=== PATIENT | female | born 1940 | race Caucasian/White ===

== ENCOUNTER → 2016-06-12 | Outpatient (CLI) | payer MEDICARE, BC ==
[~2016-06-12] MED LIST: AMLO5TAB2 PO; ASPI-586 PO; ATEN50TA PO; CHOL10003 PO; DOCU-143 PO; GLIM4TAB PO; HYDR-3062 PO; HYDR-3812 PO; HYDR-3857 PO; LORA10TA7 PO; LOSA100T28 PO; MELO15TA39 PO; METF500T4 PO; MULT-301 PO; MV-M1TAB38 PO; OMG1KC PO; SERT50TA9 PO; SIMV20TA3 PO; SITA100T12 PO
--- NOTE | 2016-06-12 18:18 | Diagnostic Imaging Report ---
Right breast diagnostic mammogram. The current study was also evaluated with a Computer Aided Detection (CAD) system. INDICATION: Follow-up after excision of intraductal papilloma. FINDINGS: There is increased density in the outer aspect of the right breast compatible with postsurgical changes with no suspicious underlying lesion identified. The pathology results demonstrated no evidence of malignancy with complete excision of intraductal papilloma and sclerosing adenosis. There are scattered benign-appearing calcifications similar to prior exam. IMPRESSION: No mammographic evidence of malignancy. Annual screening mammogram is recommended with the next bilateral exam due in November 2016. ACR BI-RADS Category 2: Benign findings. Result letter will be mailed to the patient. Note: At least 10% of breast cancer is not imaged by mammography. Dictated by: Dictated on workstation # [id number]
== END ==
LOC: RAD 12:22
PROVIDERS: ATTEND Family Medicine
DX: R92.8 Other abnormal and inconclusive findings on diagnostic imaging of breast (principal)

== ENCOUNTER → 2016-11-12 | Outpatient (CLI) | payer MEDICARE, BC ==
--- NOTE | 2016-11-12 13:45 | Diagnostic Imaging Report ---
PROCEDURE: MRI lumbar spine. TECHNIQUE: Multiplanar, multisequence MRI of the lumbar spine was performed without contrast. INDICATION: Back pain. FINDINGS: The alignment of the lumbar spine is normal. The vertebral body heights are well maintained. There is no spondylolysis or spondylolisthesis. No fractures are identified. Conus medullaris is seen at L1 and is normal in appearance. The T12-L1 disc is unremarkable. At L1-L2, there is slight loss of disc height and signal intensity. There is minimal effacement of ventral thecal sac and minimal neuroforaminal encroachment. At L2-L3, there is loss of disc height and signal intensity with broad-based annular bulging, facet disease and thickening of ligamentum flavum. There is mild central spinal stenosis and encroachment upon the lateral recess bilaterally. There is moderate bilateral neuroforaminal encroachment. At L3-L4, there is loss of disc height and signal intensity. There is facet disease with thickening of the ligamentum flavum. There is mild to moderate central spinal stenosis with encroachment upon the lateral recess bilaterally. There is moderate bilateral neuroforaminal encroachment. At L4-L5, there is loss of disc height and signal intensity. There is broad-based annular bulging and marked facet disease with thickening of the ligamentum flavum. There is severe trefoil spinal stenosis with marked encroachment upon the lateral recess bilaterally. There is moderate bilateral neuroforaminal encroachment. At L5-S1, there is some broad-based annular bulging and encroachment upon the lateral recess bilaterally with mild to moderate bilateral neuroforaminal encroachment. The abdominal aorta is nonaneurysmal. Kidneys are unremarkable. There are no other focal soft tissue abnormalities. IMPRESSION: Diffuse lumbar spondylosis and multilevel degenerative disc disease, most severe at L4-L5 as detailed above. Dictated by: Dictated on workstation # [id number]
== END ==
LOC: RAD 11:33
PROVIDERS: ATTEND Family Medicine
DX: M47.816 Spondylosis without myelopathy or radiculopathy, lumbar region (principal); M51.36 Other intervertebral disc degeneration, lumbar region
CPT/HCPCS: 72148

== ENCOUNTER → 2017-02-11 | Outpatient (CLI) | payer MEDICARE, BC ==
--- NOTE | 2017-02-12 18:33 | Diagnostic Imaging Report ---
Bilateral screening mammogram 2D views with tomosynthesis The current study was also evaluated with a Computer Aided Detection (CAD) system. INDICATION: Screening. No current complaints stated on the questionnaire. COMPARISON: 06/12/2016. FINDINGS: The breasts are composed of scattered fibroglandular densities. There are scattered benign-appearing calcifications. There has been a lumpectomy performed in the upper-outer aspect of the right breast with scarring seen similar to 06/12/2016. The pathology results were benign. IMPRESSION: Scarring in the upper-outer aspect of the right breast at a lumpectomy with benign histology results. ACR BI-RADS Category 2: Benign findings. Result letter will be mailed to the patient. Note: At least 10% of breast cancer is not imaged by mammography. Dictated by: Dictated on workstation # [id number]
== END ==
LOC: RAD 09:45
PROVIDERS: ATTEND Family Medicine
DX: Z12.31 Encounter for screening mammogram for malignant neoplasm of breast (principal)
CPT/HCPCS: 77067

== ENCOUNTER → 2017-04-10 | Outpatient (CLI) | payer MEDICARE, BC ==
[~2017-04-10] VITALS: Ht 162.6 cm; Wt 111.2 kg
[~2017-04-10] MED LIST changes: +ACHD5005 PO; -HYDR-3812 PO; +methylPREDNISolone 80 MG/ML (DEPO MEDROL) VIAL ONE
[2017-04-10 13:21] VITALS: BP 166/66
== END ==
LOC: CARD 12:46
PROVIDERS: ATTEND Pain Medicine Interventional Pain Medicine
DX: M54.16 Radiculopathy, lumbar region (principal); M48.061 Spinal stenosis, lumbar region without neurogenic claudication; M51.37 Other intervertebral disc degeneration, lumbosacral region; M43.8X9 Other specified deforming dorsopathies, site unspecified
CPT/HCPCS: 62323

== ENCOUNTER 2017-06-03 13:48 | Outpatient (CLI) | payer MEDICARE, BC ==
[~2017-06-03] VITALS: Ht 162.6 cm; Wt 100.4 kg
[~2017-06-03 13:48] MED LIST changes: -methylPREDNISolone 80 MG/ML (DEPO MEDROL) VIAL ONE
[2017-06-03] MEDS ORDERED: CHOL10007 PO (14:06)
[2017-06-03] MEDS ORDERED: HYDR25TA4 PO (14:06)
[2017-06-03] MEDS ORDERED: MULT-35 PO (14:06)
[2017-06-03] MEDS ORDERED: TRAM50TA2 PO (14:06)
[2017-06-03] MEDS ORDERED: AREDS PO (14:06)
[2017-06-03 14:09] VITALS: BP 145/68
[2017-06-05] MEDS ORDERED: ACHD5005 PO (11:14)
== END 2017-06-03 15:32 | disposition home or self-care (01) ==
LOC: PREOP 13:48
PROVIDERS: ATTEND Surgery
DX: Z01.818 Encounter for other preprocedural examination (principal); Z11.2 Encounter for screening for other bacterial diseases; R22.2 Localized swelling, mass and lump, trunk
CPT/HCPCS: 87081

== ENCOUNTER 2017-07-03 12:34 | Outpatient (CLI) | payer MEDICARE, BC ==
[~2017-07-03] VITALS: Ht 162.6 cm; Wt 99.3 kg
[~2017-07-03 12:34] MED LIST changes: +AREDS PO; +CHOL10007 PO; +HYDR25TA4 PO; -METF500T4 PO; +METF500T5 PO; +MULT-35 PO; +TRAM50TA2 PO
[2017-07-03] MEDS ORDERED: methylPREDNISolone 80 MG/ML (DEPO MEDROL) VIAL ONE (12:53)
[2017-07-03 13:04] VITALS: BP 167/74
[2017-07-03 13:23] VITALS: BP 176/75
--- NOTE | 2017-07-03 22:01 | OPERATIVE REPORT ---
DATE OF SERVICE: 07/03/2017 DIAGNOSIS: Lumbar radiculopathy. PROCEDURE: Fluoroscopic guided interlaminar epidural steroid injection. PROCEDURE IN DETAIL: After obtaining informed consent from the patient, the patient's chart was reviewed. The patient was then brought to the procedure room and placed in the prone position. A timeout was performed. The back was prepped with antiseptic solution and under fluoro guidance, the patient's lumbar spine was identified at the level of L5-S1. The L5-S1 vertebra was identified with fluoro guidance and approximately 2 mL of 1.5% lidocaine solution was used to anesthetize the skin directly down to the pedicle of the L5-S1 and under fluoroscopic guidance, the tract was anesthetized up to the interlaminar space and the ligamentum flavum. This needle was withdrawn. Then, a 20-gauge 3.5 inch Tuohy needle was then directed following the same tract that was anesthetized with the spinal needle. Using loss of resistance, the epidural space was identified and then the syringe was switched for contrast solution which was injected, approximately 1 mL. After secondary confirmation of epidural access, another syringe was placed and 80 mg of Depo-Medrol was injected. The Tuohy needle was then flushed out with approximately 2 mL of the normal saline used from the loss of resistance syringe. Band-Aids were applied to all the procedure sites. The patient tolerated the procedure well and was taken to the recovery room in stable condition. COMPLICATIONS: None. Job ID: [id number] DocumentID: [id number] Dictated Date: 07/03/2017 13:23:58 Store Person Date: 07/03/2017 22:01:09 Dictated By: RAMSES CORCORAN DO
== END 2017-07-03 13:26 | disposition home or self-care (01) ==
LOC: CARD 12:34
PROVIDERS: ATTEND Pain Medicine Interventional Pain Medicine
DX: M54.16 Radiculopathy, lumbar region (principal)
CPT/HCPCS: 62323

== ENCOUNTER 2017-08-28 13:26 | Outpatient (CLI) | payer MEDICARE, BC ==
[~2017-08-28] VITALS: Ht 160 cm; Wt 102.1 kg
[2017-08-28] MEDS ORDERED: methylPREDNISolone 80 MG/ML (DEPO MEDROL) VIAL ONE (13:37)
[2017-08-28 13:58] VITALS: BP 169/63
[2017-08-28 14:20] VITALS: BP 165/67
--- NOTE | 2017-08-28 17:10 | OPERATIVE REPORT ---
DATE OF SERVICE: 08/28/2017 DIAGNOSIS: Lumbar radiculopathy. PROCEDURE: Fluoroscopic guided interlaminar epidural steroid injection. PROCEDURE IN DETAIL: After obtaining informed consent from the patient, the patient's chart was reviewed. The patient was then brought to the procedure room and placed in the prone position. A timeout was performed. The back was prepped with antiseptic solution and under fluoro guidance, the patient's lumbar spine was identified at the level of L5-S1. The L5-S1 vertebrae were identified with fluoro guidance and approximately 2 mL of 1.5% lidocaine solution was used to anesthetize the skin directly down to the pedicle of the L5-S1 and under fluoroscopic guidance, the tract was anesthetized up to the interlaminar space and the ligamentum flavum. This needle was withdrawn. Then, a 20-gauge 3.5 inch Tuohy needle was then directed following the same tract that was anesthetized with the spinal needle. Using loss of resistance, the epidural space was identified and then the syringe was switched for contrast solution which was injected, approximately 1 mL. After secondary confirmation of epidural access, another syringe was placed and 80 mg of Depo-Medrol was injected. The Tuohy needle was then flushed out with approximately 2 mL of the normal saline used from the loss of resistance syringe. Band-Aids were applied to all the procedure sites. The patient tolerated the procedure well and was taken to the recovery room in stable condition. COMPLICATIONS: None. Job ID: [id number] DocumentID: [id number] Dictated Date: 08/28/2017 14:18:48 Supervisor [employer] Date: 08/28/2017 17:10:18 Dictated By: RAMSES CORCORAN DO
== END 2017-08-28 14:27 ==
LOC: CARD 13:26
PROVIDERS: ATTEND Pain Medicine Interventional Pain Medicine
DX: M54.16 Radiculopathy, lumbar region (principal)
CPT/HCPCS: 62323

== ENCOUNTER → 2018-02-12 | Outpatient (CLI) | payer MEDICARE, BC ==
[~2018-02-12] MED LIST changes: -AMLO5TAB2 PO; +AMLO5TAB7 PO; -LOSA100T28 PO; +LOSA100T8 PO; +METF-397 PO; -METF500T5 PO
--- NOTE | 2018-02-12 18:39 | Diagnostic Imaging Report ---
INDICATION: Routine screening. COMPARISON: Comparison is made with prior mammogram from 02/11/2017. TECHNIQUE: 2D and 3D bilateral screening mammography was performed with computer-aided detection (CAD) system. FINDINGS: Scattered fibroglandular densities are identified bilaterally. Postop lumpectomy changes in the upper-outer right breast are again noted. There are scattered calcifications throughout both breasts. There is a focal irregular density identified on the left breast CC view at mid depth just lateral to the nipple line. No definite correlate on the MLO view is seen. Additional views are recommended. Axillae are unremarkable. IMPRESSION: Left breast density. Additional views are recommended for further evaluation. ACR BI-RADS Category 0: Incomplete. (Needs additional imaging evaluation). Result letter will be mailed to the patient. Note: At least 10% of breast cancer is not imaged by mammography. Dictated by: Dictated on workstation # [id number]
== END ==
LOC: RAD 14:38
PROVIDERS: ATTEND Family Medicine
DX: Z12.31 Encounter for screening mammogram for malignant neoplasm of breast (principal); R92.8 Other abnormal and inconclusive findings on diagnostic imaging of breast
CPT/HCPCS: 77067

== ENCOUNTER → 2018-02-25 | Outpatient (CLI) | payer MEDICARE, BC ==
--- NOTE | 2018-02-25 14:42 | Diagnostic Imaging Report ---
EXAMINATION: Unilateral diagnostic left mammogram INDICATION: Abnormal screening mammogram The recent screening mammogram performed on 02/12/2018 noted a focal irregular density at mid depth just lateral to the nipple line on the cc view of the left breast. There is no corresponding abnormality seen on the MLO view. This density does not seem as conspicuous on the compression view or on the lateral roll view but seems to persist on the medial rolled view. This finding cannot be identified on the true lateral view of this exam. I suspect that this density is related to fibroglandular tissue alone. Even so, I would recommend that ultrasound be performed for further study. IMPRESSION: There is no evidence of malignancy. Ultrasound of the left breast would be recommend for further evaluation. ACR BI-RADS Category 0: Incomplete. (Needs additional imaging evaluation). Result letter will be mailed to the patient. Note: At least 10% of breast cancer is not imaged by mammography. Dictated by: Dictated on workstation # [id number]
--- NOTE | 2018-02-25 14:54 | Diagnostic Imaging Report ---
EXAMINATION: Ultrasound of the left breast limited. INDICATION: Abnormal mammogram. FINDINGS: The screening mammogram performed on 02/12/2018 noted a focal radiodensity in the left breast at mid depth just lateral to the nipple line. The diagnostic mammogram performed prior to this study failed to show any evidence for malignancy. On this exam, there is a small 4 x 3 x 4 mm fairly well-circumscribed avascular hypoechoic lesion in the 2 o'clock position roughly 5 cm from the nipple. This may correspond to the density seen on the mammogram. I suspect that this is a small cyst which has been slightly complicated by infection and/or hemorrhage. The possibility that this is a small benign solid lesion should also be considered. I would recommend that a short-term (6 month) followup mammogram and ultrasound exam be performed for further study. There is no other abnormality identified. IMPRESSION: There is a small hypoechoic lesion in the 2 o'clock position of the left breast approximately 5 cm from the nipple. The precise etiology of this finding is uncertain but it has a generally benign appearance. Recommendations as above. ACR BI-RADS Category 3: Probably benign findings. Dictated by: Dictated on workstation # [id number]
== END ==
LOC: RAD 13:25
PROVIDERS: ATTEND Family Medicine
DX: N64.89 Other specified disorders of breast (principal)
CPT/HCPCS: 76642

== ENCOUNTER 2018-04-15 10:00 | Outpatient (CLI) | payer MEDICARE, BC ==
[~2018-04-15] VITALS: Ht 160 cm; Wt 102.1 kg
[~2018-04-15 10:00] MED LIST changes: -AMLO5TAB7 PO; +AMLO5TAB9 PO; +LOSA100T57 PO; -LOSA100T8 PO
[2018-04-15] MEDS ORDERED: BENA20TA7 PO (10:09)
[2018-04-15] MEDS ORDERED: MULT-178 PO (10:09)
== END 2018-04-15 16:22 | disposition home or self-care (01) ==
LOC: PREOP 10:00
PROVIDERS: ATTEND Surgery
DX: Z01.818 Encounter for other preprocedural examination (principal)

== ENCOUNTER 2018-04-21 09:10 | Day surgery (SDC) | payer MEDICARE, BC ==
[~2018-04-21] VITALS: Ht 160 cm; Wt 102.1 kg
[~2018-04-21 09:10] MED LIST changes: +BENA20TA7 PO; +MULT-178 PO
[2018-04-21 09:25] VITALS: BP 156/75
[2018-04-21] MEDS ORDERED: LACTATED RINGERS 1,000 ML IV ONE (09:27)
[2018-04-21] MEDS ORDERED: LACTATED RINGERS 1,000 ML IV PRN (09:30)
[2018-04-21] MEDS ORDERED: PROPOFOL INJECTION 50 ML IV ONE (09:51)
--- NOTE | 2018-04-21 09:55 | Progress Note-Pre Operative ---
Pre-Operative Progress Note H&P Reviewed The H&P was reviewed, patient examined and no changes noted. Date Seen by Provider: Apr 21, 2018 Time Seen by Provider: 09:54 Date H&P Reviewed: Apr 21, 2018 Time H&P Reviewed: 09:54 Pre-Operative Diagnosis: + cologuard test DIXIE AVALOS DO Apr 21, 2018 09:55
[2018-04-21] MEDS ORDERED: GLYCOPYRROLATE 0.2 MG/ML (ROBINUL) 2 ML VIAL ONE (10:08)
--- NOTE | 2018-04-21 10:45 | Progress Note-Post Operative ---
Post-Operative Progess Note Surgeon (s)/Appeals Analyst (s) Surgeon DIXIE AVALOS DO Appeals Analyst: na Pre-Operative Diagnosis + cologuard test Post-Operative Diagnosis ascending colon mass Procedure & Operative Findings Date of Procedure 04/21/18 Procedure Performed/Findings colonoscopy with cold biopsies ascending colon mass and bradly inking 3mL distal to mass Anesthesia Type per photoflash powder mixer Estimated Blood Loss Estimated blood loss (mL): none Specimens/Packing Specimens Removed ascending colon mass DIXIE AVALOS DO Apr 21, 2018 10:45
[2018-04-21 10:50] VITALS: BP 111/57
[2018-04-21 11:20] VITALS: BP 156/73
[2018-04-21 11:35] VITALS: BP 156/73
--- NOTE | 2018-04-21 11:35 | NUR ---
HAS BEEN PASSING FLATUS AND TAKING PO FLUIDS WITHOUT PROBLEM. ALERT, DENIES COMPLAINTS. STATES SHE IS READY FOR DISMISSAL.
--- NOTE | 2018-04-21 15:15 | OPERATIVE REPORT ---
DATE OF SERVICE: 04/21/2018 PREOPERATIVE DIAGNOSIS: Positive Cologuard test. POSTOPERATIVE DIAGNOSIS: Ascending colon mass. PROCEDURE: Colonoscopy with cold biopsies of the ascending colon mass and Jenna inking distal to the mass 3 mL. SURGEON: Dixie Hartley DO ANESTHESIA: Per SECURITIES CONSULTANT. ESTIMATED BLOOD LOSS: None. COMPLICATIONS: None. INDICATIONS: The patient is a 78-year-old female with positive Cologuard test. She understands risks and benefits of procedure and wished to proceed with procedure. Consent was signed on the chart. DESCRIPTION OF PROCEDURE: The patient was taken to the endoscopy suite, placed in left lateral recumbent position. Timeout was performed. Digital rectal exam was performed. There were no palpable polyps, mass or ulcerations. The scope was inserted in the rectum and advanced all the way to the cecum with minimal difficulty. Prep was adequate with irrigation and suction. Scope was then slowly retracted back. There were no polyps, masses or ulcerations in the cecum. The ascending colon, a slightly ulcerated appearing mass was present, which cold biopsies were obtained. Scope was continued slowly retracted just distal to this area where a total of 3 mL of Jenna inking was placed. The scope was then continued slowly retracted back. There were no other polyps, mass or ulcerations within the remainder of the ascending, transverse, descending and sigmoid colon. Once in the rectum, scope was retroflexed noting no other pathology. Scope was returned to its normal position, slowly withdrawn until completely removed. The patient tolerated the procedure well without any complications. She was taken to recovery room in stable condition. RECOMMENDATIONS: The patient will need a followup in two weeks to discuss pathology results. Likely, we will need a right colon resection. We will discuss at the time of followup. Job ID: [id number] DocumentID: [id number] Dictated Date: 04/21/2018 10:49:06 Rn Complex Care Date: 04/21/2018 15:14:24 Dictated By: DIXIE HARTLEY DO
--- NOTE | 2018-04-21 15:49 | Anesthesia-General Post-Op ---
MAC Patient Condition Mental Status/LOC: Same as Preop Cardiovascular: Satisfactory Nausea/Vomiting: Absent Respiratory: Satisfactory Pain: Controlled Complications: Absent Post Op Complications Complications None Follow Up Care/Instructions Patient Instructions None needed. Anesthesiology Discharge Order Discharge Order Patient was seen this morning after the procedure and she was doing well, no complaints, stable vital signs, no apparent adverse anesthesia problems. TAY LANGLEY DO Apr 21, 2018 15:49
== END 2018-04-21 11:35 | disposition home or self-care (01) ==
LOC: ENDO 09:10
PROVIDERS: ATTEND Surgery
DX: C18.2 Malignant neoplasm of ascending colon (principal); E11.9 Type 2 diabetes mellitus without complications; I10 Essential (primary) hypertension; E66.9 Obesity, unspecified; Z68.39 Body mass index [BMI] 39.0-39.9, adult; Z79.82 Long term (current) use of aspirin; Z79.84 Long term (current) use of oral hypoglycemic drugs; Z79.899 Other long term (current) drug therapy
CPT/HCPCS: 82962

== ENCOUNTER → 2018-05-06 | Outpatient (CLI) | payer MEDICARE, BC ==
[2018-05-06 11:04] LABS: BASOPHILS % (AUTO) 0 % (0-10); EOSINOPHILS # (AUTO) 0.1 10^3/uL (0.0-0.3); EOSINOPHILS % (AUTO) 2 % (0-10); HEMATOCRIT 35 % (35-52); HEMOGLOBIN 11.2 G/DL (11.5-16.0); LYMPHOCYTES # (AUTO) 1.6 X 10^3 (1.0-4.0); LYMPHOCYTES % (AUTO) 23 % (12-44); MEAN CORPUSCULAR HEMOGLOBIN 30 PG (25-34); MEAN CORPUSCULAR HGB CONC 32 G/DL (32-36); MEAN CORPUSCULAR VOLUME 95 FL (80-99); MEAN PLATELET VOLUME 9.4 FL (7.4-10.4); MONOCYTES # (AUTO) 0.5 X 10^3 (0.0-1.0); MONOCYTES % (AUTO) 8 % (0-12); NEUTROPHILS # (AUTO) 4.8 X 10^3 (1.8-7.8); NEUTROPHILS % (AUTO) 68 % (42-75); PLATELET COUNT 300 10^3/uL (130-400)
[2018-05-06 11:22] LABS: ALANINE AMINOTRANSFERASE 21 U/L (0-55); ALBUMIN 4.3 GM/DL (3.2-4.5); ALKALINE PHOSPHATASE 47 U/L (40-136); BILIRUBIN,TOTAL 0.4 MG/DL (0.1-1.0); BUN/CREATININE RATIO 23; CALCIUM 10.9 MG/DL (8.5-10.1); CARBON DIOXIDE 25 MMOL/L (21-32); CHLORIDE 105 MMOL/L (98-107); CREATININE SERUM 0.79 MG/DL (0.60-1.30); GFR ESTIMATED > 60; GLUCOSE 136 MG/DL (70-105); POTASSIUM 4.5 MMOL/L (3.6-5.0); SODIUM 137 MMOL/L (135-145)
== END ==
LOC: LAB 10:45
PROVIDERS: ATTEND Surgery
DX: C18.9 Malignant neoplasm of colon, unspecified (principal)
CPT/HCPCS: 36415; 80053; 82378; 85025

== ENCOUNTER → 2018-05-12 | Outpatient (CLI) | payer MEDICARE, BC ==
--- NOTE | 2018-05-13 15:10 | Diagnostic Imaging Report ---
EXAMINATION: PET/CT. INDICATION: Colorectal cancer. EXAMINATION: After intravenous administration of 14.1 mCi of F18-FDG, a series of overlapping emission and transmission PET images was obtained. In the coronal, transaxial and sagittal planes, the area imaged extended from the skull base through the upper thighs. COMPARISON: There are no prior PET/CT exams or cross-sectional imaging studies available for comparison. FINDINGS: By history, patient is diagnosed with colorectal carcinoma. There is no focal area of hypermetabolic activity within the visualized colon to suggest neoplasm. Correlation with the patient's history would be recommended. There is no hypermetabolic activity to indicate the presence of metastatic disease. The liver, specifically, is unremarkable for any hypermetabolic activity. There is no other hypoechoic activity identified. The CT images fail to show any sign of an acute abnormality. The heart is enlarged and there are coronary artery calcifications evident. There are chronic pulmonary changes noted but there is no sign of an acute abnormality. There may be a few small gallstones within the gallbladder. If further study is desired, then ultrasound would be recommended. The bone windows are unremarkable for a fracture or for a destructive lesion. There is no obvious breast mass. IMPRESSION: 1. There is no hypermetabolic activity to correspond to the patient's diagnosis of colorectal carcinoma. Specifically, there is no evidence for metastatic disease. 2. There is no acute abnormality identified. 3. There is a question of cholelithiasis. Recommendations as above. Dictated by: Dictated on workstation # [id number]
== END ==
LOC: RAD 10:35
PROVIDERS: ATTEND Surgery
DX: C18.9 Malignant neoplasm of colon, unspecified (principal); I51.7 Cardiomegaly; I25.10 Atherosclerotic heart disease of native coronary artery without angina pectoris

== ENCOUNTER 2018-05-18 13:37 | Outpatient (CLI) | payer MEDICARE, BC ==
[~2018-05-18] VITALS: Ht 161.9 cm; Wt 101.6 kg
[2018-05-18 13:51] VITALS: BP 158/62
[2018-05-18] MEDS ORDERED: ATOR20TA66 PO (14:02)
[2018-05-19] MEDS ORDERED: OLME40TA12 PO (10:47)
[2018-05-19] MEDS ORDERED: BETA1TAB15 PO (10:47)
[2018-05-19] MEDS ORDERED: TELM80TA8 PO (10:48)
[2018-05-19] MEDS ORDERED: AMLO5TAB9 PO (11:04)
== END 2018-05-18 14:25 | disposition home or self-care (01) ==
LOC: PREOP 13:37
PROVIDERS: ATTEND Surgery
DX: Z01.818 Encounter for other preprocedural examination (principal)
CPT/HCPCS: 87081

== ENCOUNTER 2018-05-21 10:30 | Inpatient (IN) | payer MEDICARE, BC ==
--- NOTE | 2018-05-19 11:06 | NUR ---
CALLED ROSA FOR A LIST OF RECENTLY FILLED MEDICATIONS. SHE IS PAST DUE FOR REFILLS ON A FEW OF THE MEDICATIONS REPORTED AT HER PREOP VISIT. I CALLED AND SPOKE WITH HER OVER THE PHONE REGARDING THEM. [facility]A FILLED: 05-18-18 TELMISARTAN 80MG DAILY (THIS WAS IN PLACE OF THE BENICAR THE PHARMACY COULD NOT GET IN STOCK, PATIENT IS TO TAKE ONE OR THE OTHER BUT NOT BOTH) 04-29-18 HCTZ 25MG DAILY 04-29-18 MOBIC 15MG DAILY 04-22-18 TRAMADOL 50MG BID 04-08-18 BENICAR 40MG DAILY #90 (HAS BEEN SWITCHED TO TELMISARTAN) 04-08-18 LIPITOR 20MG HS #90 03-02-19 METFORMIN 500MG 2 BID #360 DECEMBER GLIMEPIRIDE 4MG DAILY #90 JANUARY ATENOLOL 50MG BID #60 (STATES SHE TAKES 2 AT ONCE, SHE STATES HER BOTTLE IS DATED 03-11-18 #180 AT HOME) AMLODIPINE 5MG DAILY #90 (UNCLEAR IF THIS WAS STOPPED OR IF SHE HAD SOME EXTRA) NEVER PICKED UP- SERTRALINE 50MG DAILY (SURPLUS ON HAND FROM PREVIOUS MAIL ORDER FILLS) SHE STATES SHE PREVIOUSLY USED MAIL ORDER AND SO SHE HAD A LARGE SUPPLY STOCKED UP ON SOME OF HER MEDS AND THAT IS WHY SHE HAS NOT REFILLED A FEW OF THEM RECENTLY, SHE IS USING UP THE SUPPLY SHE HAS ON HAND. SHE WAS UNSURE ABOUT THE AMLODIPINE BUT I CALLED DR. SANDHU'S OFFICE AND THEY STILL HAVE IT AN ACTIVE MEDICATION. STATED IS SHE HAS NOT BEEN TAKING IT AND HER BP IS FINE SHE DOES NOT NEED TO TAKE IT. IT IS UNCLEAR IF SHE HAS BEEN TAKING IT OR NOT DUE TO ITS PAST DUE REFILL DATE AND HER NOT KNOWING FOR SURE IF IT WAS ONE SHE JUST HAD A SURPLUS ON HAND OF. I LEFT IT ON THE MED REC AT THIS TIME. SHE RECEIVES THE JANUVIA 100MG DAILY THROUGH THE MAIL ORDER PHARMACY FOR [employer]. SHE ALSO TAKES THE FOLLOWING OTC: MTV DAILY PRESERVISION WITH AREDS BID VITAMIN D BID ASPIRIN 81MG DAILY
[~2018-05-21] VITALS: Ht 160 cm; Wt 103.6 kg
[~2018-05-21 10:30] MED LIST changes: +ATOR20TA66 PO; +BETA1TAB15 PO; +OLME40TA12 PO; +TELM80TA8 PO
--- OUTSIDE RECORDS SUMMARY | 2018-05-21 10:45 | XMS REPORT | Continuity of Care Document ---
Author Author [facility] Organization [facility] Address Unknown Phone Unavailable Allergies Active Description Code Type Severity Reaction Onset Reported/Identified Relationship to Patient Clinical Status Yes No Known Drug Allergies [id number] Drug Allergy Unknown N/A 04/15/2018 Medications There is no data. Problems Date Dx Coded Attending Type Code Diagnosis Diagnosed By 11/14/2014 GELLENDER DORAYO Ot V76.12 10/10/2015 GELLENDER DO, RAYO Mix Ot M54.9 DORSALGIA, UNSPECIFIED 10/11/2015 GELLENDER DO, RAYO Mix Ot M54.9 DORSALGIA, UNSPECIFIED 10/11/2015 GELLENDER DO, RAYO Mix Ot M54.9 DORSALGIA, UNSPECIFIED 10/31/2015 GELLENDER DO, RAYO Mix Ot M54.9 DORSALGIA, UNSPECIFIED 11/08/2015 GELLENDER DO, RAYO Mix Ot M54.9 DORSALGIA, UNSPECIFIED 11/24/2015 GELLENDER DO, RAYO Mix Ot Z12.31 ENCNTR SCREEN MAMMOGRAM FOR MALIGNANT NE 11/27/2015 GELLENDER DO, RAYO Mix Ot Z12.31 ENCNTR SCREEN MAMMOGRAM FOR MALIGNANT NE 12/07/2015 GELLENDER DO, RAYO Mix Ot R92.2 INCONCLUSIVE MAMMOGRAM 12/07/2015 GELLENDER DO, RAYO Mix Ot R92.8 OTH ABN AND INCONCLUSIVE FINDINGS ON DX 12/14/2015 Ot V76.12 OTH SCREEN MAMMO-MALIGN NEOPLASM OF [place] 12/14/2015 Ot 786.2 COUGH 12/14/2015 GELLENDER DO, RAYO Mix Ot V76.12 OTH SCREEN MAMMO-MALIGN NEOPLASM OF [place] 12/14/2015 GELLENDER DO, RAYO Mix Ot V76.12 OTH SCREEN MAMMO-MALIGN NEOPLASM OF [place] 12/14/2015 GELLENDER DO, RAYO Mix Ot V76.12 OTH SCREEN MAMMO-MALIGN NEOPLASM OF [place] 12/14/2015 GELLENDER DO, RAYO Mix Ot M54.9 DORSALGIA, UNSPECIFIED 12/14/2015 GELLENDER DO, RAYO Mix Ot Z12.31 ENCNTR SCREEN MAMMOGRAM FOR MALIGNANT NE 12/14/2015 GELLENDER DO, RAYO Mix Ot R92.8 OTH ABN AND INCONCLUSIVE FINDINGS ON DX 12/14/2015 GELLENDER DO, RAYO Mix Ot R92.8 OTH ABN AND INCONCLUSIVE FINDINGS ON DX 12/14/2015 GELLENDER DO, RAYO Mix Ot R92.8 OTH ABN AND INCONCLUSIVE FINDINGS ON DX 12/14/2015 GELLENDER DO, RAYO Mix Ot R92.8 OTH ABN AND INCONCLUSIVE FINDINGS ON DX 12/15/2015 GELLENDER DO, RAYO Mix Ot R92.8 OTH ABN AND INCONCLUSIVE FINDINGS ON DX 12/15/2015 GELLENDER DO, RAYO Mix Ot N63 UNSPECIFIED LUMP IN BREAST 12/15/2015 GELLENDER DO, RAYO Mix Ot N63 UNSPECIFIED LUMP IN BREAST 12/18/2015 GELLENDER DO, RAYO Mix Ot N63 UNSPECIFIED LUMP IN BREAST 12/18/2015 GELLENDER DO, RAYO Mix Ot Z12.31 ENCNTR SCREEN MAMMOGRAM FOR MALIGNANT NE 12/26/2015 GELLENDER DO, RAYO Mix Ot N63 UNSPECIFIED LUMP IN BREAST 01/05/2016 AVALOSDIXIE RODRIGUEZ DO Ot N63 UNSPECIFIED LUMP IN BREAST 01/05/2016 DIXIE AVALOS DO Ot Z01.818 ENCOUNTER FOR OTHER PREPROCEDURAL EXAMIN 01/05/2016 DIXIE AVALOS DO Ot Z11.2 ENCOUNTER FOR SCREENING FOR OTHER BACTER 01/08/2016 DIXIE AVALOS DO Ot N63 UNSPECIFIED LUMP IN BREAST 01/08/2016 DIXIE AVALOS DO Ot Z01.818 ENCOUNTER FOR OTHER PREPROCEDURAL EXAMIN 01/08/2016 DIXIE AVALOS DO Ot Z11.2 ENCOUNTER FOR SCREENING FOR OTHER BACTER 01/11/2016 DIXIE AVALOS DO Ot C50.911 MALIGNANT NEOPLASM OF UNSP SITE OF RIGHT 01/11/2016 DIXIE AVALOS DO Ot Z80.3 FAMILY HISTORY OF MALIGNANT NEOPLASM OF 01/15/2016 DIXIE AVALOS DO Ot C50.911 MALIGNANT NEOPLASM OF UNSP SITE OF RIGHT 01/15/2016 DIXIE AVALOS DO Ot Z80.3 FAMILY HISTORY OF MALIGNANT NEOPLASM OF 01/17/2016 AVALOS DO, DIXIE D Ot C50.911 MALIGNANT NEOPLASM OF UNSP SITE OF RIGHT 01/17/2016 AVALOS DO, DIXIE D Ot Z80.3 FAMILY HISTORY OF MALIGNANT NEOPLASM OF 02/01/2016 AVALOS DO, DIXIE D Ot C50.911 MALIGNANT NEOPLASM OF UNSP SITE OF RIGHT 02/01/2016 AVALOS DO, DIXIE D Ot Z80.3 FAMILY HISTORY OF MALIGNANT NEOPLASM OF 02/21/2016 GELLENDER DO, RAYO Dominguez Ot R92.8 OTH ABN AND INCONCLUSIVE FINDINGS ON DX 06/12/2016 Ot V76.12 OTH SCREEN MAMMO-MALIGN NEOPLASM OF RAMON 06/12/2016 Ot 786.2 COUGH 06/12/2016 GELLENDER DO, RAYO Dominguez Ot V76.12 OTH SCREEN MAMMO-MALIGN NEOPLASM OF RAMON 06/12/2016 GELLENDER DO, RAYO Mix Ot V76.12 OTH SCREEN MAMMO-MALIGN NEOPLASM OF [place]ON 06/12/2016 GELLENDER DO, RAYO Mix Ot V76.12 OTH SCREEN MAMMO-MALIGN NEOPLASM OF [place] 06/12/2016 GELLENDER DO, RAYO Mix Ot M54.9 DORSALGIA, UNSPECIFIED 06/12/2016 GELLENDER DO, RAYO Mix Ot Z12.31 ENCNTR SCREEN MAMMOGRAM FOR MALIGNANT NE 06/12/2016 GELLENDER DO, RAYO Mix Ot R92.8 OTH ABN AND INCONCLUSIVE FINDINGS ON DX 06/12/2016 GELLENDER DO, RAYO Mix Ot N63 UNSPECIFIED LUMP IN BREAST 06/12/2016 GELLENDER DO, RAYO Mix Ot R92.8 OTH ABN AND INCONCLUSIVE FINDINGS ON DX 06/12/2016 GELLENDER DO, RAYO Mix Ot R92.8 OTH ABN AND INCONCLUSIVE FINDINGS ON DX 06/12/2016 GELLENDER DO, RAYO Mix Ot R92.8 OTH ABN AND INCONCLUSIVE FINDINGS ON DX 07/05/2016 GELLENDER DO, RAYO Mix Ot R92.8 OTH ABN AND INCONCLUSIVE FINDINGS ON DX 07/10/2016 GELLENDER DO, RAYO Mix Ot R92.8 OTH ABN AND INCONCLUSIVE FINDINGS ON DX 09/25/2016 GELLENDER DO, RAYO Mix Ot N63 UNSPECIFIED LUMP IN BREAST 12/06/2016 GELLENDER DO, RYAO Mix Ot M47.816 SPONDYLOSIS W/O MYELOPATHY OR RADICULOPA 12/06/2016 RAYO SANDHU DO Ot M51.36 OTHER INTERVERTEBRAL DISC DEGENERATION, 12/11/2016 RAYO SANDHU DO Dominguez Ot M47.816 SPONDYLOSIS W/O MYELOPATHY OR RADICULOPA 12/11/2016 RAYO SANDHU DO Ot M51.36 OTHER INTERVERTEBRAL DISC DEGENERATION, 02/17/2017 RAYO SANDHU DO Ot Z12.31 ENCNTR SCREEN MAMMOGRAM FOR MALIGNANT NE 03/04/2017 RAYO SANDHU DO Ot Z12.31 ENCNTR SCREEN MAMMOGRAM FOR MALIGNANT NE 04/11/2017 RAMSES CORCORAN DO Ot M43.8X9 OTHER SPECIFIED DEFORMING DORSOPATHIES, 04/11/2017 RAMSES CORCORAN DO Ot M48.061 SPINAL STENOSIS, LUMBAR REGION WITHOUT N 04/11/2017 RAMSES CORCORAN DO Ot M51.37 OTHER INTERVERTEBRAL DISC DEGENERATION, 04/11/2017 RAMSES CORCORAN DO Ot M54.16 RADICULOPATHY, LUMBAR REGION 05/02/2017 RAMSES CORCORAN DO Ot M43.8X9 OTHER SPECIFIED DEFORMING DORSOPATHIES, 05/02/2017 RMASES CORCORAN DO Ot M48.061 SPINAL STENOSIS, LUMBAR REGION WITHOUT N 05/02/2017 RAMSES CORCORAN DO Ot M51.37 OTHER INTERVERTEBRAL DISC DEGENERATION, 05/02/2017 RAMSES CORCORAN DO Ot M54.16 RADICULOPATHY, LUMBAR REGION 05/07/2017 RAMSES CORCORAN DO Ot M43.8X9 OTHER SPECIFIED DEFORMING DORSOPATHIES, 05/07/2017 RAMSES CORCORAN DO Ot M48.061 SPINAL STENOSIS, LUMBAR REGION WITHOUT N 05/07/2017 RAMSES CORCORAN DO Ot M51.37 OTHER INTERVERTEBRAL DISC DEGENERATION, 05/07/2017 RAMSES CORCORAN DO Ot M54.16 RADICULOPATHY, LUMBAR REGION 06/03/2017 DIXIE AVALOS DO Ot R22.2 LOCALIZED SWELLING, MASS AND LUMP, TRUNK 06/03/2017 DIXIE AVALOS DO Ot Z01.818 ENCOUNTER FOR OTHER PREPROCEDURAL EXAMIN 06/03/2017 DIXIE AVALOS DO Ot Z11.2 ENCOUNTER FOR SCREENING FOR OTHER BACTER 06/04/2017 DIXIE AVALOS DO Ot R22.2 LOCALIZED SWELLING, MASS AND LUMP, TRUNK 06/04/2017 DIXIE AVALOS DO Ot Z01.818 ENCOUNTER FOR OTHER PREPROCEDURAL EXAMIN 06/04/2017 DIXIE AVALOS DO Ot Z11.2 ENCOUNTER FOR SCREENING FOR OTHER BACTER 06/05/2017 DIXIE AVALOS DO Ot D17.1 BENIGN LIPOMATOUS NEOPLASM OF SKIN, SUBC 06/05/2017 DIXIE AVALOS DO Ot E11.9 TYPE 2 DIABETES MELLITUS WITHOUT COMPLIC 06/05/2017 DIXIE AVALOS DO Ot E78.00 PURE HYPERCHOLESTEROLEMIA, UNSPECIFIED 06/05/2017 DIXIE AVALOS DO Ot F32.9 MAJOR DEPRESSIVE DISORDER, SINGLE EPISOD 06/05/2017 DIXIE AVALOS DO Ot I10 ESSENTIAL (PRIMARY) HYPERTENSION 06/05/2017 DIXIE AVALOS DO Ot M19.91 PRIMARY OSTEOARTHRITIS, UNSPECIFIED SITE 06/05/2017 DIXIE AVALOS DO Ot Z79.82 USP (CURRENT) USE OF ASPIRIN 06/05/2017 DIXIE AVALOS DO Ot Z79.84 SUBSTATION SUPERVISOR (CURRENT) USE OF ORAL HYPOGLYC 06/05/2017 DIXIE AVALOS DO Ot Z79.899 OTHER SUBSTATION SUPERVISOR (CURRENT) DRUG THERAPY 06/10/2017 DIXIE AVALOS DO Ot D17.1 BENIGN LIPOMATOUS NEOPLASM OF SKIN, SUBC 06/10/2017 DIXIE AVALOS DO Ot E11.9 TYPE 2 DIABETES MELLITUS WITHOUT COMPLIC 06/10/2017 DIXIE AVALOS DO Ot E78.00 PURE HYPERCHOLESTEROLEMIA, UNSPECIFIED 06/10/2017 DIXIE AVALOS DO Ot F32.9 MAJOR DEPRESSIVE DISORDER, SINGLE EPISOD 06/10/2017 DIXIE AVALOS DO Ot I10 ESSENTIAL (PRIMARY) HYPERTENSION 06/10/2017 DIXIE AVALOS DO Ot M19.91 PRIMARY OSTEOARTHRITIS, UNSPECIFIED SITE 06/10/2017 DIXIE AVALOS DO Ot Z79.82 USP (CURRENT) USE OF ASPIRIN 06/10/2017 DIXIE AVALOS DO Ot Z79.84 USP (CURRENT) USE OF ORAL HYPOGLYC 06/10/2017 DIXIE AVALOS DO Ot Z79.899 OTHER SUBSTATION SUPERVISOR (CURRENT) DRUG THERAPY 07/03/2017 JEWELL TORRES, RAMSES Gonsales Ot M54.16 RADICULOPATHY, LUMBAR REGION 07/04/2017 JEWELL TORRES, RAMSES Gonsales Ot M54.16 RADICULOPATHY, LUMBAR REGION 07/04/2017 JEWELL TORRES, RAMSES Gonsales Ot M54.16 RADICULOPATHY, LUMBAR REGION 08/28/2017 RAMSES CORCORAN DO Ot M54.16 RADICULOPATHY, LUMBAR REGION 08/29/2017 JEWELL TORRES, RAMSES Gonsales Ot M54.16 RADICULOPATHY, LUMBAR REGION 01/30/2018 EDSON TORRES, RAYO Mix Ot Z12.31 ENCNTR SCREEN MAMMOGRAM FOR MALIGNANT NE 02/12/2018 LEDYKRISHNASAUL , RAYO Mix Ot V76.12 OTH SCREEN MAMMO-MALIGN NEOPLASM OF [place] 02/12/2018 [facility] Mix Ot V76.12 OTH SCREEN MAMMO-MALIGN NEOPLASM OF [place] 02/12/2018 [facility], RAYO Mix Ot M54.9 DORSALGIA, UNSPECIFIED 02/12/2018 BARRYSAUL RAYO TORRES Ot Z12.31 ENCNTR SCREEN MAMMOGRAM FOR MALIGNANT NE 02/12/2018 BARRYSAUL , RAYO Mix Ot R92.8 OTH ABN AND INCONCLUSIVE FINDINGS ON DX 02/12/2018 LEDYKRISHNASAUL RAYO TORRES Ot N63 UNSPECIFIED LUMP IN BREAST 02/12/2018 BARRYWARREN, RAYO Mix Ot R92.8 OTH ABN AND INCONCLUSIVE FINDINGS ON DX 02/12/2018 [facility] RAYO Mix Ot M47.816 SPONDYLOSIS W/O MYELOPATHY OR RADICULOPA 02/12/2018 RAYO SANDHU DO Ot M51.36 OTHER INTERVERTEBRAL DISC DEGENERATION, 02/12/2018 RAYO SANDHU DO Ot Z12.31 ENCNTR SCREEN MAMMOGRAM FOR MALIGNANT NE 02/12/2018 RAMSES CORCORAN DO Ot M43.8X9 OTHER SPECIFIED DEFORMING DORSOPATHIES, 02/12/2018 RAMSES CORCORAN DO Ot M48.061 SPINAL STENOSIS, LUMBAR REGION WITHOUT N 02/12/2018 RAMSES CORCORAN DO Ot M51.37 OTHER INTERVERTEBRAL DISC DEGENERATION, 02/12/2018 RAMSES CORCORAN DO Ot M54.16 RADICULOPATHY, LUMBAR REGION 02/12/2018 EDSON DO, RAYO Dominguez Ot Z12.31 ENCNTR SCREEN MAMMOGRAM FOR MALIGNANT NE 02/13/2018 EDSON DO, RAYO Mix Ot R92.8 OTH ABN AND INCONCLUSIVE FINDINGS ON DX 02/13/2018 LEDYLENDER DO, RAYO Mix Ot Z12.31 ENCNTR SCREEN MAMMOGRAM FOR MALIGNANT NE 03/09/2018 EDSON DO, RAYO Mix Ot R92.8 OTH ABN AND INCONCLUSIVE FINDINGS ON DX 03/09/2018 LEDYLENDER DO, RAYO Mix Ot Z12.31 ENCNTR SCREEN MAMMOGRAM FOR MALIGNANT NE 03/19/2018 EDSON DO, RAYO Dominguez Ot N64.89 OTHER SPECIFIED DISORDERS OF BREAST 03/25/2018 EDSON TORRES, RAYO Mix Ot N64.89 OTHER SPECIFIED DISORDERS OF BREAST 04/15/2018 DIXIE AVALOS DO Ot Z01.818 ENCOUNTER FOR OTHER PREPROCEDURAL EXAMIN 04/15/2018 DIXIE AVALOS DO Ot Z01.818 ENCOUNTER FOR OTHER PREPROCEDURAL EXAMIN 04/15/2018 DIXIE AVALOS DO Ot Z01.818 ENCOUNTER FOR OTHER PREPROCEDURAL EXAMIN 04/15/2018 DIXIE AVALOS DO Ot Z01.818 ENCOUNTER FOR OTHER PREPROCEDURAL EXAMIN 04/16/2018 DIXIE AVALOS DO Ot Z01.818 ENCOUNTER FOR OTHER PREPROCEDURAL EXAMIN 04/21/2018 DIXIE AVALOS DO Ot C18.2 MALIGNANT NEOPLASM OF ASCENDING COLON 04/21/2018 DIXIE AVALOS DO Ot E11.9 TYPE 2 DIABETES MELLITUS WITHOUT COMPLIC 04/21/2018 DIXIE AVALOS DO Ot E66.9 OBESITY, UNSPECIFIED 04/21/2018 DIXIE AVALOS DO Ot I10 ESSENTIAL (PRIMARY) HYPERTENSION 04/21/2018 DIXIE AVALOS DO Ot Z68.39 BODY MASS INDEX (BMI) 39.0-39.9, ADULT 04/21/2018 DIXIE AVALOS DO Ot Z79.82 USP (CURRENT) USE OF ASPIRIN 04/21/2018 DIXIE AVALOS DO Ot Z79.84 SUBSTATION SUPERVISOR (CURRENT) USE OF ORAL HYPOGLYC 04/21/2018 DIXIE AVALOS DO D Ot Z79.899 OTHER USP (CURRENT) DRUG THERAPY 04/24/2018 AVALOSDIXIE RODRIGUEZ DO D Ot C18.2 MALIGNANT NEOPLASM OF ASCENDING COLON 04/24/2018 AVALOS DIXIE D Ot E11.9 TYPE 2 DIABETES MELLITUS WITHOUT COMPLIC 04/24/2018 AVALOS DIXIE TORRES D Ot E66.9 OBESITY, UNSPECIFIED 04/24/2018 AVALOS PATRICIA TORRESTT D Ot I10 ESSENTIAL (PRIMARY) HYPERTENSION 04/24/2018 AVALOS DIXIE D Ot Z68.39 BODY MASS INDEX (BMI) 39.0-39.9, ADULT 04/24/2018 AVALOS DO DIXIE D Ot Z79.82 USP (CURRENT) USE OF ASPIRIN 04/24/2018 AVALOS DIXIE D Ot Z79.84 USP (CURRENT) USE OF ORAL HYPOGLYC 04/24/2018 AVALOS DIXIE TORRES D Ot Z79.899 OTHER USP (CURRENT) DRUG THERAPY 05/07/2018 ROBBIE TORRES DIXIE Lillian Ot C18.9 MALIGNANT NEOPLASM OF COLON, UNSPECIFIED 05/07/2018 AVALOS DIXIE TORRES D Ot C18.9 MALIGNANT NEOPLASM OF COLON, UNSPECIFIED 05/13/2018 AVALOS PATRICIA TORRESTT D Ot C18.9 MALIGNANT NEOPLASM OF COLON, UNSPECIFIED 05/13/2018 AVALOS DIXIE Lillian Ot I25.10 ATHSCL HEART DISEASE OF [place] CORONARY 05/13/2018 AVALOS DIXIE Snyder Ot I51.7 CARDIOMEGALY Procedures There is no data. Results Test Result Range Methicillin resistant Staphylococcus aureus (MRSA) screening culture - 14:00 Methicillin resistant Staphylococcus aureus (MRSA) screening culture NEG NRG Capillary blood glucose measurement by glucometer (mass/volume) - 01/11/16 07: 17 Capillary blood glucose measurement by glucometer (mass/volume) 208 mg/dL 70-110 Methicillin resistant Staphylococcus aureus (MRSA) screening culture - 14:20 Methicillin resistant Staphylococcus aureus (MRSA) screening culture NEG NRG Capillary blood glucose measurement by glucometer (mass/volume) - 06/05/17 08: 36 Capillary blood glucose measurement by glucometer (mass/volume) 162 mg/dL 70-110 Capillary blood glucose measurement by glucometer (mass/volume) - 04/21/18 09: 34 Capillary blood glucose measurement by glucometer (mass/volume) 199 mg/dL 70-110 Complete blood count (CBC) with automated white blood cell (WBC) differential - 05/06/18 10:55 Blood leukocytes automated count (number/volume) 7.0 10*3/uL 4.3-11.0 Blood erythrocytes automated count (number/volume) 3.70 10*6/uL 4.35-5.85 Venous blood hemoglobin measurement (mass/volume) 11.2 g/dL 11.5-16.0 Blood hematocrit (volume fraction) 35 % 35-52 Automated erythrocyte mean corpuscular volume 95 [foz_us] 80-99 Automated erythrocyte mean corpuscular hemoglobin (mass per erythrocyte) 30 pg 25-34 Automated erythrocyte mean corpuscular hemoglobin concentration measurement ( mass/volume) 32 g/dL 32-36 Automated erythrocyte distribution width ratio 13.0 % 10.0-14.5 Automated blood platelet count (count/volume) 300 10*3/uL 130-400 Automated blood platelet mean volume measurement 9.4 [foz_us] 7.4-10.4 Automated blood neutrophils/100 leukocytes 68 % 42-75 Automated blood lymphocytes/100 leukocytes 23 % 12-44 Blood monocytes/100 leukocytes 8 % 0-12 Automated blood eosinophils/100 leukocytes 2 % 0-10 Automated blood basophils/100 leukocytes 0 % 0-10 Blood neutrophils automated count (number/volume) 4.8 10*3 1.8-7.8 Blood lymphocytes automated count (number/volume) 1.6 10*3 1.0-4.0 Blood monocytes automated count (number/volume) 0.5 10*3 0.0-1.0 Automated eosinophil count 0.1 10*3/uL 0.0-0.3 Automated blood basophil count (count/volume) 0.0 10*3/uL 0.0-0.1 Comprehensive metabolic panel - 05/06/18 10:55 Serum or plasma sodium measurement (moles/volume) 137 mmol/L 135-145 Serum or plasma potassium measurement (moles/volume) 4.5 mmol/L 3.6-5.0 Serum or plasma chloride measurement (moles/volume) 105 mmol/L 98-107 Carbon dioxide 25 mmol/L 21-32 Serum or plasma anion gap determination (moles/volume) 7 mmol/L 5-14 Serum or plasma urea nitrogen measurement (mass/volume) 18 mg/dL 7-18 Serum or plasma creatinine measurement (mass/volume) 0.79 mg/dL 0.60-1.30 Serum or plasma urea nitrogen/creatinine mass ratio 23 NRG Serum or plasma creatinine measurement with calculation of estimated glomerular filtration rate > NRG Serum or plasma glucose measurement (mass/volume) 136 mg/dL 70-105 Serum or plasma calcium measurement (mass/volume) 10.9 mg/dL 8.5-10.1 Serum or plasma total bilirubin measurement (mass/volume) 0.4 mg/dL 0.1-1.0 Serum or plasma alkaline phosphatase measurement (enzymatic activity/volume) 47 U/L 40-136 Serum or plasma aspartate aminotransferase measurement (enzymatic activity/ volume) 20 U/L 5-34 Serum or plasma alanine aminotransferase measurement (enzymatic activity/volume ) 21 U/L 0-55 Serum or plasma protein measurement (mass/volume) 7.0 g/dL 6.4-8.2 Serum or plasma albumin measurement (mass/volume) 4.3 g/dL 3.2-4.5 CALCIUM CORRECTED 10.7 mg/dL 8.5-10.1 Serum ragweed IgE antibody assay - 05/06/18 10:55 [id number] 1.4 % 0.0-5.0 Methicillin resistant Staphylococcus aureus (MRSA) screening culture - 14:12 Methicillin resistant Staphylococcus aureus (MRSA) screening culture NEG NRG Encounters ACCT No. Visit Date/Time Discharge Status Pt. Type Provider Facility Loc./Unit Complaint [id number] 05/18/2018 13:37:00 05/18/2018 14:25:00 DIS Outpatient DIXIE AVALOS DO [facility] PREOP LAPAROSOCPIC RIGHT COLON RESECTION [id number] 05/15/2018 08:46:00 05/15/2018 23:59:59 CLS Outpatient NEERU SORIANO [facility] ONC [id number] 05/12/2018 10:35:00 05/12/2018 23:59:59 CLS Outpatient DIXIE AVALOS DO [facility] RAD COLON CANCER [id number] 05/06/2018 10:45:00 05/06/2018 23:59:59 CLS Outpatient DIXIE AVALOS DO [facility] LAB COLON CA [id number] 04/21/2018 09:10:00 04/21/2018 11:35:00 DIS Outpatient DIXIE AVALOS DO [facility] ENDO BLOOD IN STOOL [id number] 04/15/2018 10:00:00 04/15/2018 16:22:00 DIS Outpatient DIXIE AVALOS DO [facility] PREOP COLONOSCOPY [id number] 02/25/2018 13:25:00 02/25/2018 23:59:59 CLS Outpatient RAYO SANDHU DO [facility] RAD ABNORMAL MAMMO [id number] 02/12/2018 14:38:00 02/12/2018 23:59:59 CLS Outpatient RAYO SANDHU DO [facility] RAD SCREENING [id number] 08/28/2017 13:26:00 08/28/2017 14:27:00 DIS Outpatient RAMSES CORCORAN DO [facility] CARD LUMBAR RADICULOPATHY [id number] 07/03/2017 12:34:00 07/03/2017 13:26:00 DIS Outpatient RAMSES CORCORAN DO [facility] CARD M54.16 LUMBAR RADICULOPATHY [id number] 06/05/2017 08:28:00 06/05/2017 13:00:00 DIS Outpatient DIXIE AVALOS DO [facility] SDC BACK MASS [id number] 06/03/2017 13:48:00 06/03/2017 15:32:00 DIS Outpatient DIXIE AVALOS DO [facility] PREOP BACK MASS [id number] 04/10/2017 12:46:00 04/10/2017 23:59:59 CLS Outpatient RAMSES CORCORAN DO [facility] CARD LUMBAR RADICULOPATHY [id number] 02/11/2017 09:45:00 02/11/2017 23:59:59 CLS Outpatient RAYO SANDHU DO [facility] RAD SCREENING MAMMOGRAM [id number] 11/12/2016 11:33:00 11/12/2016 23:59:59 CLS Outpatient RAYO SANDHU DO [facility] RAD BACK PAIN GOING DOWN RIGHT LEG [id number] 06/12/2016 12:22:00 06/12/2016 23:59:59 CLS Outpatient RAYO SANDHU DO [facility] RAD ABNORMAL MAMMO [id number] 01/11/2016 07:05:00 01/11/2016 12:50:00 DIS Outpatient DIXIE AVALOS DO [facility] RAD RT BREAST MASS [id number] 01/05/2016 13:23:00 01/05/2016 14:00:00 DIS Outpatient DIXIE AVALOS DO [facility] PREOP RIGHT BREAST LUMP [id number] 12/14/2015 09:32:00 12/14/2015 23:59:59 CLS Outpatient LEDYSMILEY TORRESRAYO [facility] RAD INCONCLUSIVE MAMMO, DENS BREAST [id number] 12/06/2015 14:07:00 12/06/2015 23:59:59 CLS Outpatient RAYO SANDHU DO [facility] RAD ABNORMAL MAMMO [id number] 11/24/2015 09:59:00 11/24/2015 23:59:59 CLS Outpatient RAYO SANDHU DO [facility] RAD SCREENING [id number] 10/09/2015 10:17:00 10/09/2015 23:59:59 CLS Outpatient RAYO SANDHU DO [facility] RAD BACK PAIN [id number] 10/21/2014 14:29:00 10/21/2014 23:59:59 CLS Outpatient RAYO SANDHU DO [facility] RAD SCREENING [id number] 09/15/2013 14:45:00 09/15/2013 23:59:59 CLS Outpatient LEDYSMILEY TORRES RAYO Dominguez [facility] RAD ROUTINE [id number] 07/21/2012 10:16:00 07/21/2012 23:59:59 CLS Outpatient LEDYSMILEY TORRES RAYO Dominguez [facility] RAD SCREENING [id number] 05/21/2018 12:35:00 PEN Preadmit DIXIE AVALOS DO COLON CANCER [id number] 06/21/2011 13:24:00 Document Registration [id number] 06/13/2011 15:27:00 Document Registration [id number] 10/22/2014 05:16:21 ACT Document Registration
[2018-05-21] MEDS: LACTATED RINGERS 1,000 ML IV PRN ×2 (10:55→14:40)
[2018-05-21 11:00] VITALS: BP 139/60
[2018-05-21] MEDS ORDERED: metroNIDAZOLE 500MG/100ML IVPB 100 ML ONE (11:21)
[2018-05-21] MEDS ORDERED: ceFAZolin 2 GM IV Premixed 50 ML ONE (11:21)
--- NOTE | 2018-05-21 11:28 | Progress Note-Pre Operative ---
Pre-Operative Progress Note H&P Reviewed The H&P was reviewed, patient examined and no changes noted. Date Seen by Provider: May 21, 2018 Time Seen by Provider: 11:28 Date H&P Reviewed: May 21, 2018 Time H&P Reviewed: 11:28 Pre-Operative Diagnosis: right colon cancer DIXIE AVALOS DO May 21, 2018 11:28
[2018-05-21] MEDS ORDERED: metroNIDAZOLE 500MG/100ML IVPB 100 ML IV ONE (11:30)
[2018-05-21] MEDS ORDERED: ceFAZolin 2 GM IV Premixed 50 ML IV ONE (11:30)
[2018-05-21] MEDS ORDERED: BUP/EPI 0.5% 1:200,000 (SENSORCAINE) 30 ML VIAL ONE (12:44)
[2018-05-21] MEDS ORDERED: LIDOCAINE 1% INJ 20 ML 20 ML VIAL ONE (12:44)
[2018-05-21] MEDS ORDERED: ROCURONIUM 10 MG/ML 5 ML SYRINGE IV ONE ×2 (13:24→13:33)
[2018-05-21] MEDS ORDERED: LIDOCAINE PF 2% 5 ML (XYLOCAINE) VIAL ONE (13:24)
[2018-05-21] MEDS ORDERED: proPOfol 200 MG/20 ML (DIPRIVAN) VIAL IV ONE (13:24)
[2018-05-21] MEDS ORDERED: ONDANSETRON 4 MG/2 ML (SDV) Z0FRAN ONE (13:24)
[2018-05-21] MEDS ORDERED: fentaNYL INJECTION 100 MCG/2 ML AMP ONE (13:25)
[2018-05-21] MEDS ORDERED: MIDAZOLAM 2 MG/2 ML (VERSED) VIAL ONE (13:25)
[2018-05-21] MEDS ORDERED: SEVOFLURANE (ULTANE) 15 ML INHAL SOLN ONE ×7 (13:31→15:47)
[2018-05-21] MEDS ORDERED: NEOSTIGMINE 1 MG/ML 5 ML SYRINGE ONE (15:26)
[2018-05-21] MEDS ORDERED: GLYCOPYRROLATE 0.2 MG/ML (ROBINUL) 2 ML VIAL ONE (15:26)
[2018-05-21] MEDS ORDERED: ROPIVACAINE 5MG/ML 30ML VIAL ONE (15:58)
[2018-05-21] MEDS ORDERED: ONDANSETRON 4 MG/2 ML (SDV) Z0FRAN IVP PRN ×2 (16:00→16:15)
[2018-05-21] MEDS ORDERED: HYDROmorphone 2 MG/ML VIAL (DILAUDID) IV ONE (16:00)
--- NOTE | 2018-05-21 16:11 | Progress Note-Post Operative ---
Post-Operative Progess Note Surgeon (s)/Quenching Car Operator (s) Surgeon DIXIE AVALOS DO Quenching Car Operator: Dr. Rainey Pre-Operative Diagnosis right colon cancer Post-Operative Diagnosis same Procedure & Operative Findings Date of Procedure 05/21/18 Procedure Performed/Findings Lap hand assisted right colon resection with mobilization hepatic flexure Anesthesia Type gen Estimated Blood Loss Estimated blood loss (mL): min Specimens/Packing Specimens Removed right colon DIXIE AVALOS DO May 21, 2018 16:11
[2018-05-21 16:45] VITALS: BP 121/58
--- NOTE | 2018-05-21 16:45 | NUR ---
TRANSFERRED FROM [facility] PER BED. ALERT AND ORIENTED. RATES PAIN TO ABD. 06/24. BUT REFUSES PAIN MED. AT THIS TIME. IV FLUIDS WITH LR AT 125 CC/HR. IV SITE TO LEFT AC CLEAR. ABD. DRESSING WITH ISLAND DRESSING IN [place] WITH X 2 SMALL SPOTS OF DRAINAGE. X 2 LARGE BAND AIDES TO ABD. D/I. FAMILY MEMBERS AT BEDSIDE. [place] CATH WITH CLEAR YELLOW URINE. TAKING SIPS OF WATER WELL. DENIES NAUSEA.
[2018-05-21 17:01] VITALS: BP 121/58
[2018-05-21] MEDS: LACTATED RINGERS 1,000 ML IV SCH (18:58)
[2018-05-21 20:17] VITALS: BP 176/72
[2018-05-21] MEDS: metroNIDAZOLE 500MG/100ML IVPB 100 ML IV SCH (22:01)
[2018-05-21] MEDS: morphine INJ 10 MG/ML 1ML (SYR OR VIAL) IVP PRN (23:28)
[2018-05-21] MEDS: ceFAZolin 2 GM IV Premixed 50 ML IV SCH (23:28)
[2018-05-22] MEDS: LACTATED RINGERS 1,000 ML IV SCH ×3 (00:15→16:32)
[2018-05-22 00:52] VITALS: BP 145/70
[2018-05-22] MEDS: morphine INJ 10 MG/ML 1ML (SYR OR VIAL) IVP PRN ×3 (02:40→20:34)
--- NOTE | 2018-05-22 02:43 | OPERATIVE REPORT ---
DATE OF SERVICE: 05/21/2018 PREOPERATIVE DIAGNOSIS: Right colon cancer. POSTOPERATIVE DIAGNOSIS: Right colon cancer. PROCEDURE: Laparoscopic hand-assisted right colon resection with mobilization of the hepatic flexure. SURGEON: Dixie Hartley DO. WARM IN: Dr. Rainey, assisted in retraction, dissection and closure. ANESTHESIA: General. ESTIMATED BLOOD LOSS: Minimal. COMPLICATIONS: None. INDICATIONS: The patient is a 78-year-old female with recent diagnosis of right colon cancer. The patient understands risks and benefits of procedure and wished to proceed with procedure. Consent was signed in the chart. DESCRIPTION OF PROCEDURE: The patient was taken to the operating suite. She was prepped and draped in sterile fashion. Surgical pause was performed. Midline incision was made for hand port. A 15 blade scalpel was used to make the incision. Cautery was used to dissect down to the fascia, which was then opened and the abdomen was then entered. The fascia was opened just enough to place hand and a Gelfoam port. The abdomen was then retracted and under direct visualization, a 10 mm trocar was placed in the right lower quadrant. The hand port was then placed in the midline incision and a pneumoperitoneum was achieved. Under direct visualization of the laparoscope, a 10 mm trocar was then placed in the subxiphoid area. The right colon was then mobilized along the white line of Toldt with both spatula and LigaSure. Once the colon was mobilized, it was able to be brought out through the midline incision. The distal ileum was then dissected around and a DEANNA-75 blue stapler was then fired across. The LigaSure was then used to dissect the mesentery. I continued to dissect around. The tumor was palpable in the distal ascending colon and the tattoo was visualized in the hepatic flexure. The hepatic flexure was continued to be mobilized with both blunt and cautery and LigaSure. Distal to the tumor and the tattooing, the proximal transverse colon was then dissected around and the DEANNA-75 blue staple reload was then fired. LigaSure was used to complete the dissection on the mesentery and the specimen was removed, which encompassed the small portion of terminal ileum, the appendix, cecum, ascending and transverse colon. The colon and the ileum were then brought together in a side by side fashion to create a bqaq-ie-lhuw anastomosis. A crotch stitch was placed. The small bowel and colon were then entered, so that the two limbs of the stapler go down one on each side and this was then fired and another reload was used to fire to complete the [id number]-[id number]-[id number] anastomosis. The mesenteric defect was then closed using 3-0 Vicryl. This was then placed back within the abdomen. The fascial defect was then closed using 1-0 looped PDS in a running fashion. The abdomen was then reinsufflated. The abdomen was inspected. No other pathology noted. The abdomen was then irrigated and suctioned. Hemostasis had been achieved. The abdomen was then desufflated, the trocars were removed. The skin was then stapled. The abdomen was then washed and dried and sterile bandages were applied. The patient tolerated the procedure well without any complications. She was taken to recovery room in stable condition. Job ID: [id number] DocumentID: [id number] Dictated Date: 05/21/2018 16:38:28 Shredder Picker Date: 05/22/2018 02:42:44 Dictated By: DIXIE HARTLEY DO
[2018-05-22 04:09] VITALS: BP 122/67
[2018-05-22 04:32] LABS: MEAN PLATELET VOLUME 9.8 FL (7.4-10.4); RED CELL DISTRIBUTION WIDTH 13.4 % (10.0-14.5); WHITE BLOOD COUNT 7.3 10^3/uL (4.3-11.0)
[2018-05-22 04:51] LABS: BUN/CREATININE RATIO 20; CALCIUM 10.2 MG/DL (8.5-10.1); CARBON DIOXIDE 21 MMOL/L (21-32); CHLORIDE 106 MMOL/L (98-107); GFR ESTIMATED > 60; GLUCOSE 223 MG/DL (70-105); POTASSIUM 4.2 MMOL/L (3.6-5.0); SODIUM 137 MMOL/L (135-145)
[2018-05-22] MEDS: ceFAZolin 2 GM IV Premixed 50 ML IV SCH (05:57)
[2018-05-22] MEDS ORDERED: POTASSIUM CL 10MEQ/50ML IVPB 50 ML IV SCH (06:00)
[2018-05-22] MEDS ORDERED: KCL 20 MEQ TAB (K-DUR) PO SCH (06:00)
[2018-05-22] MEDS: metroNIDAZOLE 500MG/100ML IVPB 100 ML IV SCH (06:19)
[2018-05-22] MEDS: MAGNESIUM 1 GM/100 ML IVPB 100 ML IV SCH ×7 (06:19→11:55)
[2018-05-22 08:00] VITALS: BP 119/62
--- NOTE | 2018-05-22 08:07 | Consultation ---
History of Present Illness History of Present Illness Patient Consulted On(consuelo/time) 05/22/18 08:03 Time Seen by Provider: 08:03 History of Present Illness Patient had surgery for colon cancer yesterday. Patient and known diabetic, hypertension, hyperlipidemia. Surgeries previously tonsillectomy, cataract, tubal ligation, lump on the back, and D&C. Family history cancer in family. Denies asthma, heart disease, lung disease. Patient feeling good today. Patient states she's passing a little bit of gas. Patient on fluids. Patient has bradycardia today to hold the atenolol. Magnesium 1 and receiving magnesium sulfate Allergies and Home Medications Allergies Coded Allergies: No Known Drug Allergies (Unverified , 04/15/18) Home Medications Amlodipine Besylate 5 Mg Tablet, 5 MG PO DAILY, (Reported) LAST FILLED #90 NOV. 2017 Aspirin 81 Mg Tablet.dr, 81 MG PO DAILY, (Reported) Atenolol 50 Mg Tablet, 100 MG PO DAILY, (Reported) TAKES 2 (50MG) TABLET Atorvastatin Calcium 20 Mg Tablet, 20 MG PO HS, (Reported) Cholecalciferol (Vitamin D3) 1,000 Unit Capsule, 1,000 UNIT PO BID, (Reported) Glimepiride 4 Mg Tablet, 4 MG PO DAILY, (Reported) Hydrochlorothiazide 25 Mg Tablet, 25 MG PO DAILY, (Reported) Meloxicam 15 Mg Tablet, 15 MG PO DAILY, (Reported) Metformin HCl 500 Mg Tablet, 1,000 MG PO BID, (Reported) TAKES 2 (500MG) TABLETS Multivitamin 1 Each Tablet, 1 TAB PO DAILY, (Reported) Sertraline HCl 50 Mg Tablet, 50 MG PO DAILY, (Reported) Sitagliptin Phosphate 100 Mg Tablet, 100 MG PO DAILY, (Reported) Telmisartan 80 Mg Tablet, 80 MG PO DAILY, (Reported) Tramadol HCl 50 Mg Tablet, 50 MG PO BID, (Reported) Vit A/Vit C/Vit E/Zinc/Copper 1 Each Tablet, 1 TAB PO BID, (Reported) Patient Home Medication List Home Medication List Reviewed: Yes Past Zmfmipe-Qyagjt-Wspvhi Hx Patient Social History Alcohol Use: Denies Use Recreational Drug Use: No Recent Foreign Travel: No Contact w/Someone Who Travel: No Recent Infectious Disease Expo: No Recent Hopitalizations: No Immunizations Up To Date Tetanus Booster (TDap): Unknown PED Vaccines UTD: No Date of Pneumonia Vaccine: Mar 17, 2014 Date of Influenza Vaccine: Dec 22, 2017 Seasonal Allergies Seasonal Allergies: Yes (MILD) Past Medical History Surgeries: Yes (CATARACTS, GRAVEL REMOVED FROM KNEE, D&C, LIPOMA FROM BACK, R BREAST LUMP) Tonsillectomy, Tubal Ligation Respiratory: No Cardiac: Yes High Cholesterol, Hypertension Neurological: No Reproductive Disorders: No 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 Sexually Transmitted Disease: No HIV/AIDS: No Genitourinary: No Bladder Infection Gastrointestinal: Yes (COLON CANCER) Musculoskeletal: Yes Degenerate Disk Disease, Arthritis, Chronic Back Pain Endocrine: Yes Diabetes, Non-Insulin dep HEENT: Yes (GLASSES, DENTURES) Loss of Vision: Bilateral Hearing Impairment: Denies Cancer: Yes Colon Psychosocial: Yes (SITUATIONAL ) Depression Integumentary: No Blood Disorders: No Adverse Reaction/Blood Tranf: No (N/A) Family Medical History Alcoholism 19 FATHER Completed stroke 19 MOTHER Dementia 19 MOTHER Diabetes mellitus 19 MOTHER G8 BROTHER FH: breast cancer G8 SISTER FH: uterine cancer 19 MOTHER Hypertension G8 BROTHER Respiratory disorder 19 FATHER Review of Systems-General Constitutional: no symptoms reported EENTM: no symptoms reported Respiratory: no symptoms reported Cardiovascular: no symptoms reported Gastrointestinal: other (Colon surgery for cancer) Genitourinary: no symptoms reported Physical Exam-General Problems Physical Exam Vital Signs Vital Signs - First Documented 05/21/18 16:45 O2 Flow Rate 2.00 Capillary Refill : General Appearance: WD/WN, no apparent distress Eyes: Bilateral Eye Normal Inspection HEENT: normal ENT inspection Neck: non-tender, full range of motion Respiratory: lungs clear, no respiratory distress, no accessory muscle use Cardiovascular: regular rate, rhythm, bradycardia, other (Will: Atenolol for bradycardia) Gastrointestinal: non tender, soft, other (Patient states she's passing a little gas) Assessment/Plan Assessment/Plan Admission Diagnosis/Plan Colon cancer. Hypertension. Diabetes. Hyperlipidemia. Admission Status: Inpatient Order (span 2 midnights) Reason for Inpatient Admission: Colon cancer surgery RAYO SANDHU DO May 22, 2018 08:07
--- NOTE | 2018-05-22 08:24 | NUR ---
EKG DONE AT BEDSIDE ORDERED.
[2018-05-22] MEDS: ASPIRIN E.C. 81 MG (ECOTRIN) TAB PO SCH (08:48)
[2018-05-22] MEDS: HYDROCHLOROTHIAZIDE 25 MG (HCTZ) TAB PO SCH (08:48)
[2018-05-22] MEDS: SERTRALINE 50 MG (ZOLOFT) TABLET PO SCH (08:48)
[2018-05-22] MEDS: amLODIPine 5 MG (NORVASC) TAB PO SCH (08:48)
[2018-05-22] MEDS: LOSARTAN 100 MG (COZAAR) TABLET PO SCH (08:48)
[2018-05-22] MEDS: PANTOPRAZOLE 40 MG (PROTONIX) VIAL IVP SCH (08:48)
--- NOTE | 2018-05-22 08:54 | Physical Therapy Evaluation ---
PT Evaluation-General Medical Diagnosis Admission Date May 21, 2018 at 10:30 Medical Diagnosis: colon resection Onset Date: May 21, 2018 Therapy Diagnosis Therapy Diagnosis: impaired mobility, strength, endurance Height/Weight Height (Feet): 5 Height (Inches): 3.00 Weight (Pounds): 228 Weight (Ounces): 8.0 Precautions Precautions/Isolations: Fall Prevention Referral Physician: Kaden Hartley DO Reason for Referral: Evaluation/Treatment Medical History Additional Medical History Past Medical History Surgeries: Yes (CATARACTS, GRAVEL REMOVED FROM KNEE, D&C, LIPOMA FROM BACK, R BREAST LUMP) Tonsillectomy, Tubal Ligation Respiratory: No Cardiac: Yes High Cholesterol, Hypertension Neurological: No 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 Sexually Transmitted Disease: No HIV/AIDS: No Genitourinary: No Bladder Infection Gastrointestinal: Yes (COLON CANCER) Musculoskeletal: Yes Degenerate Disk Disease, Arthritis, Chronic Back Pain Endocrine: Yes Diabetes, Non-Insulin dep HEENT: Yes (GLASSES, DENTURES) Loss of Vision: Bilateral Hearing Impairment: Denies Cancer: Yes Colon Psychosocial: Yes (SITUATIONAL ) Depression Reviewed History: Yes Social History Home: Single Level Current Living Status: Alone Entry Into Home: Stairs With Railing PT Steps Into Home: 2 Patient states she has a couple of family members who will be able to help her at home. Prior/Core FIM Prior Level of Function Therapy Code Descriptions/Definitions Functional [place] Measure: 0=Not Assessed/NA 4=Minimal Assistance 1=Total Assistance 5=Supervision or Setup 2=Maximal Assistance 6=Modified [place] 3=Moderate Assistance 7=Complete [place] Therapy Quality Codes: 6 Independent with activity with or without an assistive device 5 Patient requires set up or clean up by helper. Patient completes activity by themselves 4 Supervision or touching assist (CGA). Loco provide cues , steadying assist 3 The helper provides less than half the effort to complete the activity 2 The helper provides more than half the effort to complete the activity 1 Dependent. The helper does all the effort to complete an activity 7 Patient refused to complete or attempt activity 9 The patient did not perform the activity before the current illness or injury 88 Not attempted due to Medical conditions or safety concerns Functional Abilities and Goals: Independent: Patient completed the activities by him/herself, with or without an assistive device, with no assistance from a helper. Needed Some Help: Patient needed partial assistance from another person to complete activities. Dependent: A helper completed the activities for the patient. Unknown: Not Applicable: Bed Mobility: 6 Transfers (B,C,W/C) (FIM): 6 Gait: 6 Stairs: 6 Indoor Mobility (Ambulation): Independent Stairs: Independent Patient states she was using a SPC previously. PT Evaluation-Current Subjective Patient in bed pre tx, agrees to PT, has 3/10 pain in abdomen. Pt/Family Goals Patient in recliner post tx with nurse call, phone, tray, all needs met. Objective Patient Orientation: Person, Place, Situation Attachments: Oxygen, Castellanos Catheter, IV ROM/Strength ROM Lower Extremities WNL Strength Lower Extremities 4/5 gross bilateral lower extremities Neuromuscular (Tone, Coordination, Reflexes) NT Sensory Vision: Wears Glasses Hearing: Functional Sensation Right Lower Extremit: Intact Sensation Left Lower Extremity: Intact Transfers Therapy Code Descriptions/Definitions Functional [place] Measure: 0=Not Assessed/NA 4=Minimal Assistance 1=Total Assistance 5=Supervision or Setup 2=Maximal Assistance 6=Modified [place] 3=Moderate Assistance 7=Complete [place] Transfers (B, C, W/C) (FIM): 4 Scootin Rollin Supine to/from Sit: 4 Sit to/from Stand: 5 bed t/f WC(FIM only if WC use): 5 Min assist for supine to sit. Cues for safety and hand placement. Gait Mode of Locomotion: Walk Anticipated Mode of Locomotion: Walk Gait (FIM): 1 Distance: 20' Gait Level of Assist: 4 Gait Persons Needed: 1 Gait Assistive Device: FWW Comments/Gait Description CGA, slow ambulation but steady Balance Sitting Static: Good Sitting Dynamic: Good Standing Static: Good Standing Dynamic: Good Treatment Seated exercises x15 (AP, LAQ) Assessment/Needs Patient has impaired mobility, strength, endurance post abdominal surgery. Rehab Potential: Fair PT Short Term Goals Short Term Goals Time Frame: May 29, 2018 Transfers (B,C,W/C) (FIM): 5 Gait (FIM): 5 Gait Distance Comment: 150' Gait Level of Assist: 5 Gait Assistive Device: FWW PT Plan Problem List Problem List: Activity Tolerance, Functional Strength, Safety, Balance, Gait, Transfer, Bed Mobility, ROM Treatment/Plan Treatment Plan: Continue Plan of Care Treatment Plan: Bed Mobility, Education, Functional Activity Odalys, Functional Strength, Gait, Safety, Therapeutic Exercise, Transfers Treatment Duration: May 29, 2018 Frequency: 6 times per week Estimated Hrs Per Day: .25 hour per day (15-30') Patient and/or Family Agrees t: Yes Safety Risks/Education Patient Education: Gait Training, Transfer Techniques, Correct Positioning, Safety Issues Teaching Recipient: Patient Teaching Methods: Demonstration, Discussion Response to Teaching: Reinforcement Needed Discharge Recommendations Plan Patient will perform bed mobility and transfer training, balance and endurance training, functional strengthening, stair training, gait training, and education , to improve functional mobility and independence at home. Therapy D/C Recommendations: Home w/ Family Support Time/GCodes Time In: 0820 Time Out: 0845 Total Billed Treatment Time: 25 Total Billed Treatment 1 visit SAMREENM 15' GT 10' FELICIA ISBELL PT May 22, 2018 08:54
[2018-05-22] MEDS ORDERED: TELMISARTAN 40 MG (MICARDIS) TAB PO SCH (09:00)
--- NOTE | 2018-05-22 11:06 | Anesthesia-General Post-Op ---
General Patient Condition Mental Status/LOC: Same as Preop Cardiovascular: Satisfactory Nausea/Vomiting: Absent Respiratory: Satisfactory Pain: Controlled Complications: Absent Post Op Complications Complications None Follow Up Care/Instructions Patient Instructions None needed. Anesthesia/Patient Condition Patient Condition Patient is doing well, no complaints, stable vital signs, no apparent adverse anesthesia problems. No complications reported per nursing. RY LORENZO CRNA May 22, 2018 11:06
[2018-05-22] MEDS: inSUlin ASPART (NovoLOG) 1 UNIT/0.01 ML (CHARGE PER UNIT) SC SCH ×3 (11:55→21:11)
[2018-05-22 12:00] VITALS: BP 131/64
--- NOTE | 2018-05-22 12:27 | Progress Note ---
Subjective Date Seen by a Provider: May 22, 2018 Time Seen by a Provider: 12:24 Subjective/Events-last exam patient pain control. States passing very minimal flatus. Walk around the room. Using cement spirometer some. Denies any nausea vomiting fever sweats chills shortness of breath or chest pain. Magnesium was 1. Objective Exam Vital Signs Date Time Temp Pulse Resp B/P (MAP) Pulse Ox O2 Delivery O2 Flow Rate FiO2 05/22/18 08:00 98.7 50 20 119/62 (81) 98 Nasal Cannula 2.00 05/22/18 04:09 98.5 56 18 122/67 (85) 99 Nasal Cannula 2.00 05/22/18 00:52 99.1 54 18 145/70 (95) 100 Nasal Cannula 2.00 05/21/18 22:00 Nasal Cannula 2.00 05/21/18 21:00 Nasal Cannula 2.00 05/21/18 20:17 98.0 55 16 176/72 (106) 99 05/21/18 17:01 97.0 46 16 121/58 99 Nasal Cannula 2.00 05/21/18 16:45 97.0 46 16 121/58 (79) 97 Nasal Cannula 2.00 I & O 05/22/18 07:00 Intake Total 1650 ml Output Total 505 ml Balance 1145 ml Capillary Refill : General Appearance: No Apparent Distress HEENT: PERRL/EOMI Neck: Non Tender, Supple Respiratory: Chest Non Tender, No Accessory Muscle Use, No Respiratory Distress Cardiovascular: Bradycardia Gastrointestinal: soft, tenderness (incisional no signs of infection), other ( Patient states she's passing a little gas) Extremity: Non Tender, No Calf Tenderness Neurologic/Psychiatric: Alert, Oriented x3, No Motor/Sensory Deficits, Normal Mood/Affect Skin: Normal Color, Warm/Dry Lymphatic: No Adenopathy Results Lab Laboratory Tests 05/22/18 04:15: White Blood Count 7.3, Red Blood Count 3.27L, Hemoglobin 10.0L, Hematocrit 32L, Mean Corpuscular Volume 97, Mean Corpuscular Hemoglobin 31, Mean Corpuscular Hemoglobin Concent 32, Red Cell Distribution Width 13.4, Platelet Count 249, Mean Platelet Volume 9.8, Sodium Level 137, Potassium Level 4.2, Chloride Level 106, Carbon Dioxide Level 21, Anion Gap 10, Blood Urea Nitrogen 18, Creatinine 0.90, Estimat Glomerular Filtration Rate > 60, BUN/Creatinine Ratio 20, Glucose Level 223H, Calcium Level 10.2H, Magnesium Level 1.0*L 05/22/18 11:14: Glucometer 308H Assessment/Plan Assessment/Plan Assessment/Plan Colon cancer status post right hemicolectomy Hypertension. Diabetes. Hyperlipidemia. hypomagnesemia Patient clear liquids at this time. Patient encouraged to ambulate. Patient encouraged to use incentive spirometer. Patient placed on electrolyte replacement protocol Repeat labs in the morning. If hemoglobin remained stable would then start on Lovenox, otherwise patient to continue to use SCDs for DVT prophylaxis DIXIE AVALOS DO May 22, 2018 12:27
--- NOTE | 2018-05-22 13:15 | NUR ---
UNABLE TO VOID. BLADDER SCAN SHOWS 250 CC. PT DOES NOT FEEL NEED AT THIS TIME.
--- NOTE | 2018-05-22 13:19 | NUR ---
UP TO TOILET. UNABLE TO VOID. BLADDER SCAN 250 CC.
[2018-05-22 15:43] VITALS: BP 146/77
--- NOTE | 2018-05-22 16:39 | NUR ---
VOIDED 300CC. BLADDER SCAN 0.
--- NOTE | 2018-05-22 17:00 | NUR ---
ABD DRESSING CHANGED. DANYA INTACT. NO DRAINAGE.
[2018-05-22 19:12] VITALS: BP 155/72
[2018-05-22] MEDS: ATORVASTATIN 20 MG (LIPITOR) TABLET PO SCH (20:22)
[2018-05-23] VITALS: BP 147/63
[2018-05-23] MEDS: MAGNESIUM 1 GM/100 ML IVPB 100 ML IV SCH ×4 (05:49→11:46)
[2018-05-23] MEDS: inSUlin ASPART (NovoLOG) 1 UNIT/0.01 ML (CHARGE PER UNIT) SC SCH ×4 (06:03→20:54)
[2018-05-23] MEDS: MULTIVIT W/MINERALS TAB (THERAGRAN M) PO SCH (06:04)
[2018-05-23 06:16] LABS: HEMOGLOBIN 9.5 G/DL (11.5-16.0); MEAN PLATELET VOLUME 9.7 FL (7.4-10.4); RED CELL DISTRIBUTION WIDTH 13.4 % (10.0-14.5); WHITE BLOOD COUNT 6.4 10^3/uL (4.3-11.0)
[2018-05-23 06:38] LABS: ALANINE AMINOTRANSFERASE 19 U/L (0-55); ALBUMIN 3.5 GM/DL (3.2-4.5); ALKALINE PHOSPHATASE 51 U/L (40-136); BILIRUBIN,TOTAL 0.6 MG/DL (0.1-1.0); BUN/CREATININE RATIO 14; CALCIUM 10.8 MG/DL (8.5-10.1); CARBON DIOXIDE 23 MMOL/L (21-32); CHLORIDE 107 MMOL/L (98-107); CREATININE SERUM 0.76 MG/DL (0.60-1.30); GFR ESTIMATED > 60; GLUCOSE 216 MG/DL (70-105); MAGNESIUM 1.7 MG/DL (1.8-2.4); POTASSIUM 3.7 MMOL/L (3.6-5.0); SODIUM 138 MMOL/L (135-145); TOTAL PROTEIN 5.9 GM/DL (6.4-8.2)
[2018-05-23 07:45] VITALS: BP 161/72
[2018-05-23] MEDS: HYDROCHLOROTHIAZIDE 25 MG (HCTZ) TAB PO SCH (09:00)
[2018-05-23] MEDS: PANTOPRAZOLE 40 MG (PROTONIX) VIAL IVP SCH (09:00)
[2018-05-23] MEDS: LOSARTAN 100 MG (COZAAR) TABLET PO SCH (09:00)
[2018-05-23] MEDS: ASPIRIN E.C. 81 MG (ECOTRIN) TAB PO SCH (09:01)
[2018-05-23] MEDS: amLODIPine 5 MG (NORVASC) TAB PO SCH (09:01)
[2018-05-23] MEDS: SERTRALINE 50 MG (ZOLOFT) TABLET PO SCH (09:01)
--- NOTE | 2018-05-23 09:23 | Progress Note-Standard ---
Standard Progress Note Progress Notes/Assess & Plan Date Seen by a Provider: May 23, 2018 Time Seen by a Provider: 09:22 Progress/Assessment & Plan pain control adequate. Not passed flatus yet. No abdominal distention. Incisions dry. Motivated to use incentive spirometry and ambulate Final Diagnosis right colon mass. REBECA SCHWARTZ MD May 23, 2018 09:23
[2018-05-23] MEDS: ENOXAPARIN 40 MG/0.4 ML (LOVENOX) SYR SC SCH ×2 (10:01→21:37)
--- NOTE | 2018-05-23 10:55 | Physical Therapy Daily Note ---
PT Daily Note-Current Subjective Pt agreeable to PT treatment, discussed using walker for about the first week home, pt and family agreeable. Pt states not in pain right now, just some abdominal soreness Pain Numeric Pain Scale: 0-No Pain Appearance Pt sitting up in chair with family present upon arrival Pt sitting up in recliner with call light, phone and bedside table within reach. Family present Transfers Therapy Code Descriptions/Definitions Functional [place] Measure: 0=Not Assessed/NA 4=Minimal Assistance 1=Total Assistance 5=Supervision or Setup 2=Maximal Assistance 6=Modified [place] 3=Moderate Assistance 7=Complete [place] Therapy Quality Codes: 6 Independent with activity with or without an assistive device 5 Patient requires set up or clean up by helper. Patient completes activity by themselves 4 Supervision or touching assist (CGA). Mather provide cues , steadying assist 3 The helper provides less than half the effort to complete the activity 2 The helper provides more than half the effort to complete the activity 1 Dependent. The helper does all the effort to complete an activity 7 Patient refused to complete or attempt activity 9 The patient did not perform the activity before the current illness or injury 88 Not attempted due to Medical conditions or safety concerns Transfers (B, C, W/C) (FIM): 6 Sit to/from Stand: 6 Pt demo safe and correct technique with all transfers performed Gait Training Distance (FIM): 2=848-07 ft Distance: 110 Gait Level of Assist: 5 Gait Persons Needed: 1 Gait Assistive Device: FWW smooth steady gait, minimal fatigue and soreness, instruction in use of walker now and at home. Instruction to be up walking every hour to assist in decreasing abdominal scar tissue, improving functional mobility and activity tolerance after returning home Treatments gait transfer safety instructional training Assessment Current Status: Good Progress PT Short Term Goals Short Term Goals Time Frame: May 29, 2018 Transfers (B,C,W/C) (FIM): 5 Gait (FIM): 5 Gait Distance Comment: 150' Gait Level of Assist: 5 Gait Assistive Device: FWW PT Plan Treatment/Plan Treatment Plan: Continue Plan of Care Treatment Plan: Bed Mobility, Education, Functional Activity Odalys, Functional Strength, Gait, Safety, Therapeutic Exercise, Transfers Treatment Duration: May 29, 2018 Frequency: 6 times per week Estimated Hrs Per Day: .25 hour per day (15-30') Patient and/or Family Agrees t: Yes Time/GCodes Time In: 850 Time Out: 908 Total Billed Treatment Time: 18 Total Billed Treatment 1 visit, GT x 1 unit MERE RODRIGUEZ BRAILLE TRANSCRIBER May 23, 2018 10:55
--- NOTE | 2018-05-23 13:00 | Progress Note-Hospitalist ---
Subjective HPI/CC On Admission Date Seen by Provider: May 23, 2018 Time Seen by Provider: 11:15 Subjective/Events-last exam Patient doing better No flatus yet Sore abdomen but improved Ambulating well with assistance Checked meds and labs Review of Systems General: Fatigue Gastrointestinal: Abdominal Pain Objective Exam Vital Signs Vital Signs Date Time Temp Pulse Resp B/P (MAP) Pulse Ox O2 Delivery O2 Flow Rate FiO2 05/23/18 07:45 99.8 67 20 161/72 (101) 94 Nasal Cannula 2.00 Capillary Refill : Less Than 3 Seconds General Appearance: No Apparent Distress, WD/WN, Chronically ill HEENT: PERRL/EOMI Neck: Non Tender, Supple Respiratory: Chest Non Tender, No Accessory Muscle Use, No Respiratory Distress Cardiovascular: Regular Rate, Rhythm, No Edema, Bradycardia Gastrointestinal: Soft, Abnormal Bowel Sounds Extremity: Non Tender, No Calf Tenderness Neurologic/Psychiatric: Alert, Oriented x3, No Motor/Sensory Deficits, Normal Mood/Affect Skin: Normal Color, Warm/Dry Lymphatic: No Adenopathy Results/Procedures Lab Laboratory Tests 05/23/18 05:45 Patient resulted labs reviewed. Assessment/Plan Assessment and Plan Assess & Plan/Chief Complaint Assessment: Right colon mass s/p resection post op ileus HTN Abdominal pain Plan: Pain meds Ambulate IVF Diagnosis/Problems Diagnosis/Problems (1) Ileus following gastrointestinal surgery Status: Acute (2) Hypertension Status: Chronic Qualifiers: Hypertension type: essential hypertension Qualified Codes: I10 - Essential (primary) hypertension (3) Depression Status: Chronic Qualifiers: Depression Type: unspecified Qualified Codes: F32.9 - Major depressive disorder, single episode, unspecified (4) Colon cancer Status: Acute Qualifiers: Colon location: unspecified part of colon Qualified Codes: C18.9 - Malignant neoplasm of colon, unspecified (5) Hypercalcemia Status: Acute (6) Diabetes Status: Chronic Qualifiers: Diabetes mellitus type: type 2 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
[2018-05-23] MEDS: ATORVASTATIN 20 MG (LIPITOR) TABLET PO SCH (20:54)
[2018-05-23] MEDS: METOCLOPRAMIDE INJ 10 MG/2 ML (REGLAN) IVP SCH (21:37)
[2018-05-24] VITALS: BP 158/71
[2018-05-24] MEDS: morphine INJ 10 MG/ML 1ML (SYR OR VIAL) IVP PRN (01:49)
--- NOTE | 2018-05-24 03:00 | NUR ---
daylight savings time in effect
[2018-05-24] MEDS: MAGNESIUM 1 GM/100 ML IVPB 100 ML IV SCH ×2 (05:26→08:50)
[2018-05-24] MEDS: METOCLOPRAMIDE INJ 10 MG/2 ML (REGLAN) IVP SCH ×3 (06:05→21:18)
[2018-05-24] MEDS: MULTIVIT W/MINERALS TAB (THERAGRAN M) PO SCH (06:06)
[2018-05-24] MEDS: inSUlin ASPART (NovoLOG) 1 UNIT/0.01 ML (CHARGE PER UNIT) SC SCH ×4 (06:06→21:18)
[2018-05-24 06:22] LABS: HEMOGLOBIN 9.2 G/DL (11.5-16.0); MEAN PLATELET VOLUME 9.7 FL (7.4-10.4); WHITE BLOOD COUNT 5.7 10^3/uL (4.3-11.0)
[2018-05-24 06:43] LABS: BUN/CREATININE RATIO 12; CALCIUM 10.9 MG/DL (8.5-10.1); CARBON DIOXIDE 25 MMOL/L (21-32); CHLORIDE 105 MMOL/L (98-107); CREATININE SERUM 0.78 MG/DL (0.60-1.30); GFR ESTIMATED > 60; GLUCOSE 236 MG/DL (70-105); MAGNESIUM 1.6 MG/DL (1.8-2.4); POTASSIUM 3.6 MMOL/L (3.6-5.0); SODIUM 139 MMOL/L (135-145)
[2018-05-24 07:47] VITALS: BP 137/64
[2018-05-24] MEDS: PANTOPRAZOLE 40 MG (PROTONIX) VIAL IVP SCH (08:48)
[2018-05-24] MEDS: SERTRALINE 50 MG (ZOLOFT) TABLET PO SCH (08:48)
[2018-05-24] MEDS: HYDROCHLOROTHIAZIDE 25 MG (HCTZ) TAB PO SCH (08:48)
[2018-05-24] MEDS: ASPIRIN E.C. 81 MG (ECOTRIN) TAB PO SCH (08:49)
[2018-05-24] MEDS: ENOXAPARIN 40 MG/0.4 ML (LOVENOX) SYR SC SCH ×2 (08:49→21:18)
[2018-05-24] MEDS: LOSARTAN 100 MG (COZAAR) TABLET PO SCH (08:49)
[2018-05-24] MEDS: amLODIPine 5 MG (NORVASC) TAB PO SCH (08:49)
--- NOTE | 2018-05-24 11:14 | Progress Note-Standard ---
Standard Progress Note Progress Notes/Assess & Plan Date Seen by a Provider: May 24, 2018 Time Seen by a Provider: 10:55 Progress/Assessment & Plan pain control adequate. Not passed flatus yet. No abdominal distention. Incisions dry. Motivated to use incentive spirometry and ambulate. afebrile, systolic hypertension. Tolerating diet. Yet to pass flatus. Incisions dry no abdominal distention. Final Diagnosis right colonic mass REBECA SCHWARTZ MD May 24, 2018 11:14
[2018-05-24] MEDS ORDERED: MAGNESIUM 1 GM/100 ML IVPB 100 ML IV ONE (11:45)
--- NOTE | 2018-05-24 12:42 | Progress Note-Hospitalist ---
Subjective HPI/CC On Admission Date Seen by Provider: May 24, 2018 Time Seen by Provider: 11:45 Subjective/Events-last exam Passing flatus Abdominal pain improved Wants to take a shower Checked meds and labs Review of Systems General: Fatigue Objective Exam Vital Signs Vital Signs Date Time Temp Pulse Resp B/P (MAP) Pulse Ox O2 Delivery O2 Flow Rate FiO2 05/24/18 07:47 98.5 74 20 137/64 (88) 95 Nasal Cannula 2.00 Capillary Refill : Less Than 3 Seconds General Appearance: No Apparent Distress, WD/WN, Chronically ill HEENT: PERRL/EOMI Neck: Non Tender, Supple Respiratory: Chest Non Tender, Lungs Clear, Normal Breath Sounds, No Accessory Muscle Use, No Respiratory Distress Cardiovascular: Regular Rate, Rhythm, No Edema Gastrointestinal: Normal Bowel Sounds, Soft, Tenderness Extremity: Non Tender, No Calf Tenderness Neurologic/Psychiatric: Alert, Oriented x3, No Motor/Sensory Deficits, Normal Mood/Affect Skin: Normal Color, Warm/Dry Lymphatic: No Adenopathy Results/Procedures Lab Laboratory Tests 05/24/18 06:05 Patient resulted labs reviewed. Assessment/Plan Assessment and Plan Assess & Plan/Chief Complaint Assessment: Right colon mass s/p resection post op ileus no passing flatus HTN Abdominal pain Plan: Pain meds Ambulate IVF Diagnosis/Problems Diagnosis/Problems (1) Ileus following gastrointestinal surgery Status: Acute (2) Hypertension Status: Chronic Qualifiers: Hypertension type: essential hypertension Qualified Codes: I10 - Essential (primary) hypertension (3) Depression Status: Chronic Qualifiers: Depression Type: unspecified Qualified Codes: F32.9 - Major depressive disorder, single episode, unspecified (4) Colon cancer Status: Acute Qualifiers: Colon location: unspecified part of colon Qualified Codes: C18.9 - Malignant neoplasm of colon, unspecified (5) Hypercalcemia Status: Acute (6) Diabetes Status: Chronic Qualifiers: Diabetes mellitus type: type 2 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
[2018-05-24 15:48] VITALS: BP 109/62
[2018-05-24] MEDS: ATORVASTATIN 20 MG (LIPITOR) TABLET PO SCH (21:18)
[2018-05-25] VITALS: BP 147/67
--- NOTE | 2018-05-25 03:45 | NUR ---
Assumed care of pt at this time; report rec'd from ANNETTE Pang. Pt in bed with HOB in semi-Fowlers; resting with eyes closed; no s/s of distress noted. Will continue to monitor.
[2018-05-25 05:54] LABS: HEMOGLOBIN 8.9 G/DL (11.5-16.0); MEAN PLATELET VOLUME 9.5 FL (7.4-10.4); WHITE BLOOD COUNT 5.1 10^3/uL (4.3-11.0)
[2018-05-25] MEDS: MULTIVIT W/MINERALS TAB (THERAGRAN M) PO SCH (06:19)
[2018-05-25] MEDS: METOCLOPRAMIDE INJ 10 MG/2 ML (REGLAN) IVP SCH ×3 (06:19→22:07)
[2018-05-25 06:25] LABS: BUN/CREATININE RATIO 15; CALCIUM 10.7 MG/DL (8.5-10.1); CARBON DIOXIDE 24 MMOL/L (21-32); CHLORIDE 106 MMOL/L (98-107); CREATININE SERUM 0.81 MG/DL (0.60-1.30); GFR ESTIMATED > 60; GLUCOSE 204 MG/DL (70-105); MAGNESIUM 1.6 MG/DL (1.8-2.4); POTASSIUM 3.7 MMOL/L (3.6-5.0); SODIUM 139 MMOL/L (135-145)
[2018-05-25] MEDS: inSUlin ASPART (NovoLOG) 1 UNIT/0.01 ML (CHARGE PER UNIT) SC SCH ×4 (06:36→22:08)
--- NOTE | 2018-05-25 07:55 | Progress Note (SOAP) ---
Subjective Time Seen by a Provider: 07:52 Subjective/Events-last exam Patient feeling better today. Patient passing gas. Patient has not had a bowel movement. Patient only walk around in room. Magnesium 1.6 today Objective Exam Vital Signs Date Time Temp Pulse Resp B/P (MAP) Pulse Ox O2 Delivery O2 Flow Rate FiO2 05/25/18 00:00 98.6 84 18 147/67 (93) 94 Nasal Cannula 2.00 05/24/18 20:00 Nasal Cannula 2.00 05/24/18 15:48 98.6 80 16 109/62 (78) 97 Nasal Cannula 2.00 05/24/18 08:00 Nasal Cannula 2.00 I & O 05/25/18 07:00 Intake Total 1640 ml Balance 1640 ml Capillary Refill : Less Than 3 Seconds General Appearance: No Apparent Distress, WD/WN HEENT: Normal ENT Inspection Neck: Normal Inspection, Non Tender Respiratory: Chest Non Tender, No Accessory Muscle Use, No Respiratory Distress Cardiovascular: Regular Rate, Rhythm, No Murmur Gastrointestinal: non tender, soft Results Lab Laboratory Tests 05/25/18 05:20 Laboratory Tests 05/24/18 11:27: Glucometer 319H 05/24/18 15:50: Glucometer 241H 05/24/18 20:48: Glucometer 201H 05/25/18 05:20: White Blood Count 5.1, Red Blood Count 2.93L, Hemoglobin 8.9L, Hematocrit 28L, Mean Corpuscular Volume 96, Mean Corpuscular Hemoglobin 30, Mean Corpuscular Hemoglobin Concent 32, Red Cell Distribution Width 13.0, Platelet Count 261, Mean Platelet Volume 9.5, Sodium Level 139, Potassium Level 3.7, Chloride Level 106, Carbon Dioxide Level 24, Anion Gap 9, Blood Urea Nitrogen 12, Creatinine 0.81, Estimat Glomerular Filtration Rate > 60, BUN/Creatinine Ratio 15, Glucose Level 204H, Calcium Level 10.7H, Magnesium Level 1.6L 05/25/18 05:54: Glucometer 232H Assessment/Plan Assessment/Plan Assess & Plan/Chief Complaint . . 05/25/18. Colon cancer. Hypertension. Diabetes. Hyperlipidemia.. Patient passing gas. No bowel movement yet. Hypomagnesemia RAYO SANDHU DO May 25, 2018 07:55
--- NOTE | 2018-05-25 07:59 | NUR ---
Dr. Padron on floor and verbal order received to give one additional bag of Magnesium for a total of two bags today.
[2018-05-25 08:00] VITALS: BP 124/73
[2018-05-25] MEDS ORDERED: MAGNESIUM 1 GM/100 ML IVPB 100 ML IV NR ×2 (08:00)
[2018-05-25] MEDS: LOSARTAN 100 MG (COZAAR) TABLET PO SCH (09:31)
[2018-05-25] MEDS: SERTRALINE 50 MG (ZOLOFT) TABLET PO SCH (09:31)
[2018-05-25] MEDS: HYDROCHLOROTHIAZIDE 25 MG (HCTZ) TAB PO SCH (09:31)
[2018-05-25] MEDS: PANTOPRAZOLE 40 MG (PROTONIX) VIAL IVP SCH (09:31)
[2018-05-25] MEDS: amLODIPine 5 MG (NORVASC) TAB PO SCH (09:31)
[2018-05-25] MEDS: ASPIRIN E.C. 81 MG (ECOTRIN) TAB PO SCH (09:32)
[2018-05-25] MEDS: ENOXAPARIN 40 MG/0.4 ML (LOVENOX) SYR SC SCH ×2 (09:37→22:07)
--- NOTE | 2018-05-25 10:56 | Physical Therapy Daily Note ---
PT Daily Note-Current Subjective Pt reports doctor told her to be up walking more, goal is to try to make it to the nurses station. Pt is very motivated and with good family support Pain Numeric Pain Scale: 0-No Pain Comment: Pt denies pain. Reports soreness beginning in low back with gait distance Appearance upon arrival into pt's room, noted Pt sitting up in chair awake and alert with family present. Pt demo I with toileting and thea care during treatment session. At end of session, pt sitting up in chair, call light, phone and bedside table within reach. All needs met at this time. Mental Status Patient Orientation: Normal For Age Attachments: IV Transfers Therapy Code Descriptions/Definitions Functional [place] Measure: 0=Not Assessed/NA 4=Minimal Assistance 1=Total Assistance 5=Supervision or Setup 2=Maximal Assistance 6=Modified [place] 3=Moderate Assistance 7=Complete [place] Therapy Quality Codes: 6 Independent with activity with or without an assistive device 5 Patient requires set up or clean up by helper. Patient completes activity by themselves 4 Supervision or touching assist (CGA). [place] provide cues , steadying assist 3 The helper provides less than half the effort to complete the activity 2 The helper provides more than half the effort to complete the activity 1 Dependent. The helper does all the effort to complete an activity 7 Patient refused to complete or attempt activity 9 The patient did not perform the activity before the current illness or injury 88 Not attempted due to Medical conditions or safety concerns Transfers (B, C, W/C) (FIM): 6 Sit to/from Stand: 6 Bed to/from Chair: 6 pt demonstrating correct technique and safety with all transfers performed this session Gait Training Gait (FIM): 6 Distance (FIM): 3=150 ft Distance: 238' Gait Level of Assist: 6 Gait Persons Needed: 1 Gait Assistive Device: FWW Pt with slightly fwd flexed posturing at LB/hips, states has had chronic back problems. Good gait speed, No LOB or unsteadiness. Minimal fatigue by end of session Treatments Gait, transfer, safety to improve functional mobility, activity tolerance, strength and balance Assessment Current Status: Good Progress PT Short Term Goals Short Term Goals Time Frame: May 29, 2018 Transfers (B,C,W/C) (FIM): 5 Gait (FIM): 5 Gait Distance Comment: 150' Gait Level of Assist: 5 Gait Assistive Device: FWW PT Plan Treatment/Plan Treatment Plan: Continue Plan of Care Treatment Plan: Bed Mobility, Education, Functional Activity Odalys, Functional Strength, Gait, Safety, Therapeutic Exercise, Transfers Treatment Duration: May 29, 2018 Frequency: 6 times per week Estimated Hrs Per Day: .25 hour per day (15-30') Patient and/or Family Agrees t: Yes Safety Risks/Education Patient Education: Gait Training, Transfer Techniques, Safety Issues Teaching Recipient: Patient, Family Teaching Methods: Discussion Response to Teaching: Verbalize Understanding Time/GCodes Time In: 1034 Time Out: 1050 Total Billed Treatment Time: 16 Total Billed Treatment 1 visit, GT x 1 unit MERE RODRIGUEZ PTA May 25, 2018 10:56
[2018-05-25 16:00] VITALS: BP 161/69
[2018-05-25] MEDS ORDERED: HYDROcodone/APAP 5 MG/325 MG (LORTAB) TAB PO PRN (20:45)
--- NOTE | 2018-05-25 20:45 | Progress Note ---
Subjective Date Seen by a Provider: May 25, 2018 Time Seen by a Provider: 10:07 Subjective/Events-last exam patient passing flatus. Tolerating diet. Pain controlled. Denies any nausea vomiting fever sweats chills shortness of breath or chest pain. Using incentive spirometer. Ambulating. No new complaints at this time. Objective Exam Vital Signs Date Time Temp Pulse Resp B/P (MAP) Pulse Ox O2 Delivery O2 Flow Rate FiO2 05/25/18 16:00 97.1 78 16 161/69 (99) 98 Room Air 05/25/18 08:00 Nasal Cannula 2.00 05/25/18 08:00 98.5 87 18 124/73 (90) 94 Room Air 05/25/18 00:00 98.6 84 18 147/67 (93) 94 Nasal Cannula 2.00 I & O 05/25/18 07:00 Intake Total 1640 ml Balance 1640 ml Capillary Refill : Less Than 3 Seconds General Appearance: No Apparent Distress, WD/WN HEENT: Normal ENT Inspection Neck: Normal Inspection, Non Tender Respiratory: Chest Non Tender, No Accessory Muscle Use, No Respiratory Distress Cardiovascular: Regular Rate, Rhythm, No Murmur Gastrointestinal: soft, tenderness (minimal at incision . Incisions clean dry and intact) Extremity: Non Tender, No Calf Tenderness Neurologic/Psychiatric: Alert, Oriented x3, No Motor/Sensory Deficits, Normal Mood/Affect Skin: Normal Color, Warm/Dry Lymphatic: No Adenopathy Results Lab Laboratory Tests 05/24/18 20:48: Glucometer 201H 05/25/18 05:20: White Blood Count 5.1, Red Blood Count 2.93L, Hemoglobin 8.9L, Hematocrit 28L, Mean Corpuscular Volume 96, Mean Corpuscular Hemoglobin 30, Mean Corpuscular Hemoglobin Concent 32, Red Cell Distribution Width 13.0, Platelet Count 261, Mean Platelet Volume 9.5, Sodium Level 139, Potassium Level 3.7, Chloride Level 106, Carbon Dioxide Level 24, Anion Gap 9, Blood Urea Nitrogen 12, Creatinine 0.81, Estimat Glomerular Filtration Rate > 60, BUN/Creatinine Ratio 15, Glucose Level 204H, Calcium Level 10.7H, Magnesium Level 1.6L 05/25/18 05:54: Glucometer 232H 05/25/18 11:15: Glucometer 303H 3/11/19 15:47: Glucometer 210H 05/25/18 20:32: Glucometer 246H Assessment/Plan Assessment/Plan Assessment/Plan Colon cancer status post right hemicolectomy Hypertension. Diabetes. Hypomagnesemia electrolyte protocol for replacement. Patient passing flatus. Oral pain control. Continue using incentive spirometer. Ambulate as tolerates. Tolerating diet. Continues to improve possibly home tomorrow. DIXIE AVALOS DO May 25, 2018 20:45
[2018-05-25] MEDS: ATORVASTATIN 20 MG (LIPITOR) TABLET PO SCH (22:07)
[2018-05-26] VITALS: BP 151/62
[2018-05-26 03:44] LABS: HEMOGLOBIN 9.6 G/DL (11.5-16.0); MEAN PLATELET VOLUME 9.6 FL (7.4-10.4); RED CELL DISTRIBUTION WIDTH 12.7 % (10.0-14.5); WHITE BLOOD COUNT 6.4 10^3/uL (4.3-11.0)
[2018-05-26 04:09] LABS: BUN/CREATININE RATIO 18; CALCIUM 10.6 MG/DL (8.5-10.1); CARBON DIOXIDE 24 MMOL/L (21-32); CHLORIDE 104 MMOL/L (98-107); CREATININE SERUM 0.78 MG/DL (0.60-1.30); GFR ESTIMATED > 60; GLUCOSE 198 MG/DL (70-105); MAGNESIUM 1.4 MG/DL (1.8-2.4); SODIUM 140 MMOL/L (135-145)
[2018-05-26] MEDS: MULTIVIT W/MINERALS TAB (THERAGRAN M) PO SCH (06:44)
[2018-05-26] MEDS: METOCLOPRAMIDE INJ 10 MG/2 ML (REGLAN) IVP SCH (06:44)
[2018-05-26] MEDS: inSUlin ASPART (NovoLOG) 1 UNIT/0.01 ML (CHARGE PER UNIT) SC SCH ×2 (06:44→11:37)
--- NOTE | 2018-05-26 07:55 | Progress Note (SOAP) ---
Subjective Time Seen by a Provider: 07:53 Subjective/Events-last exam Patient feeling much better today. Patient's temperature 98.6. White blood cells within normal limits. Patient received 3 g of magnesium sulfate. Patient passing gas and had several bowel movements including one this morning Objective Exam Vital Signs Date Time Temp Pulse Resp B/P (MAP) Pulse Ox O2 Delivery O2 Flow Rate FiO2 05/26/18 00:00 100.1 85 18 151/62 (91) 94 Room Air 05/25/18 20:15 Room Air 05/25/18 16:00 97.1 78 16 161/69 (99) 98 Room Air 05/25/18 08:00 Nasal Cannula 2.00 05/25/18 08:00 98.5 87 18 124/73 (90) 94 Room Air I & O 05/26/18 07:00 Intake Total 1390 ml Balance 1390 ml Capillary Refill : Less Than 3 Seconds General Appearance: No Apparent Distress, WD/WN HEENT: Normal ENT Inspection Neck: Full Range of Motion, Normal Inspection Respiratory: No Accessory Muscle Use, No Respiratory Distress Cardiovascular: Regular Rate, Rhythm, No Murmur Gastrointestinal: non tender, soft Results Lab Laboratory Tests 05/26/18 03:35 Laboratory Tests 05/25/18 11:15: Glucometer 303H 05/25/18 15:47: Glucometer 210H 05/25/18 20:32: Glucometer 246H 05/26/18 03:35: White Blood Count 6.4, Red Blood Count 3.16L, Hemoglobin 9.6L, Hematocrit 30L, Mean Corpuscular Volume 94, Mean Corpuscular Hemoglobin 30, Mean Corpuscular Hemoglobin Concent 32, Red Cell Distribution Width 12.7, Platelet Count 285, Mean Platelet Volume 9.6, Sodium Level 140, Potassium Level 4.0, Chloride Level 104, Carbon Dioxide Level 24, Anion Gap 12, Blood Urea Nitrogen 14, Creatinine 0.78, Estimat Glomerular Filtration Rate > 60, BUN/Creatinine Ratio 18, Glucose Level 198H, Calcium Level 10.6H, Magnesium Level 1.4L Assessment/Plan Assessment/Plan Assess & Plan/Chief Complaint . . 05/25/18. Colon cancer. Hypertension. Diabetes. Hyperlipidemia.. Patient passing gas. No bowel movement yet. Hypomagnesemia. . 05/26/18. Colon cancer surgery. Hypertension. Diabetes. Hyperlipidemia. Hypomagnesemia. Patient passing gas and having bowel movements. Patient's temperature this morning 98.6. CBC shows no leukocytosis RAYO SANDHU DO May 26, 2018 07:55
[2018-05-26 08:00] VITALS: BP 163/75
[2018-05-26] MEDS: LOSARTAN 100 MG (COZAAR) TABLET PO SCH (08:22)
[2018-05-26] MEDS: PANTOPRAZOLE 40 MG (PROTONIX) VIAL IVP SCH (08:22)
[2018-05-26] MEDS: POTASSIUM CL 10MEQ/50ML IVPB 50 ML IV SCH ×4 (08:22→10:31)
[2018-05-26] MEDS: SERTRALINE 50 MG (ZOLOFT) TABLET PO SCH (08:22)
[2018-05-26] MEDS: ASPIRIN E.C. 81 MG (ECOTRIN) TAB PO SCH (08:22)
[2018-05-26] MEDS: amLODIPine 5 MG (NORVASC) TAB PO SCH (08:23)
[2018-05-26] MEDS: HYDROCHLOROTHIAZIDE 25 MG (HCTZ) TAB PO SCH (08:27)
[2018-05-26] MEDS ORDERED: NS IV 500 ML 500 ML IV SCH (08:30)
[2018-05-26] MEDS: MAGNESIUM 1 GM/100 ML IVPB 100 ML IV SCH ×4 (08:42→09:48)
[2018-05-26] MEDS: ENOXAPARIN 40 MG/0.4 ML (LOVENOX) SYR SC SCH (09:20)
--- NOTE | 2018-05-26 09:50 | Physical Therapy Daily Note ---
PT Daily Note-Current Subjective Pt sitting in recliner upon arrival. Pt agrees to PT. Pt reports DC today, this could not be confirmed by Nurse. Pain Location: No Pain Reported Mental Status Patient Orientation: Person, Place, Time, Situation Attachments: IV Transfers Therapy Code Descriptions/Definitions Functional [place] Measure: 0=Not Assessed/NA 4=Minimal Assistance 1=Total Assistance 5=Supervision or Setup 2=Maximal Assistance 6=Modified [place] 3=Moderate Assistance 7=Complete [place] Therapy Quality Codes: 6 Independent with activity with or without an assistive device 5 Patient requires set up or clean up by helper. Patient completes activity by themselves 4 Supervision or touching assist (CGA). [place] provide cues , steadying assist 3 The helper provides less than half the effort to complete the activity 2 The helper provides more than half the effort to complete the activity 1 Dependent. The helper does all the effort to complete an activity 7 Patient refused to complete or attempt activity 9 The patient did not perform the activity before the current illness or injury 88 Not attempted due to Medical conditions or safety concerns Transfers (B, C, W/C) (FIM): 6 Scootin Rollin Supine to/from Sit: 6 Sit to/from Stand: 6 Bed to/from Chair: 6 Weight Bearing Right Lower Extremity: Right Full Weight Bearing Left Lower Extremity: Left Full Weight Bearing Gait Training Distance (FIM): 3=150 ft Distance: 250' Gait Level of Assist: 6 Gait Persons Needed: 1 Gait Assistive Device: FWW Pt walks well with FWW. Pt reports having SPC at home but BAR PORTER instructs pt to use FWW at this time due to leaning too much on FWW to use SPC. Treatments Pt uses restroom before ambulation in hallway. Pt ambulates in hallway using FWW at Mod I before returning to rest in recliner. Nurse is present and pt has all needs met. Assessment Current Status: Good Progress Pt is feeling better today and wants to eat regular diet. Pt is ambulating and transferring well. Pt looks forward to DC. PT Short Term Goals Short Term Goals Time Frame: May 29, 2018 Transfers (B,C,W/C) (FIM): 5 Gait (FIM): 5 Gait Distance Comment: 150' Gait Level of Assist: 5 Gait Assistive Device: FWW PT Plan Problem List Problem List: Activity Tolerance Treatment/Plan Treatment Plan: Continue Plan of Care Treatment Plan: Bed Mobility, Education, Functional Activity Odalys, Functional Strength, Gait, Safety, Therapeutic Exercise, Transfers Treatment Duration: May 29, 2018 Frequency: 6 times per week Estimated Hrs Per Day: .25 hour per day (15-30') Patient and/or Family Agrees t: Yes Safety Risks/Education Patient Education: Gait Training, Transfer Techniques, Correct Positioning, Safety Issues Teaching Recipient: Patient Teaching Methods: Discussion Response to Teaching: Verbalize Understanding Time/GCodes Time In: 900 Time Out: 923 Total Billed Treatment Time: 23 Total Billed Treatment 1, FA (8m) & GT (15m) G Codes Necessary: TASHA Queen BAR PORTER May 26, 2018 09:50
[2018-05-26] MEDS ORDERED: ACHD5005 PO (11:19)
[2018-05-26] MEDS ORDERED: DOCU-143 PO (11:19)
--- NOTE | 2018-05-26 11:21 | Discharge Inst-Simple/Standard ---
Discharge Inst-Standard Discharge Medications New, Converted or Re-Newed RX: RX on Chart Patient Instructions/Follow Up Plan of Care/Instructions/FU: 2 weeks Odilia Odom within 2 weeks. Activity as Tolerated: No Discharge Diet: Regular Diet Other Inst to Patient Follow up Appt: Make appointment for 2 week Odilia. within [address] Odom Instructions: No lifting greater than 10 pounds. No strenuous activity. May shower in 24 hours, no tub bath or soaking. Use incentive spirometer at home as directed. No Smoking Skin/Wound Care: keep incisions clean and dry. Symptoms to Report: Appetite Changes, Extremity Discoloration, Numbness/Tingling, Swelling Increased , Bleeding Excessive, Eyesight Changes, Pain Increased, Urine Color Change, Constipation(Persistent), Fever over 101 degree F, Pain/Pressure in chest, Urinating Difficulty, Cough Up/Vomit Blood, Heart Beat Irreg/Pounding, Pain/ Pressure in jaw, Vaginal Bleeding Increase, Cramps in feet or legs, Lightheadedness, Pain/Pressure in shoulder, Diarrhea(Persistent), Memory Changes Suddenly, Questions/Concerns, Weight gain consecutive days, Dizziness/ Fainting, Nausea/Vomiting, Shortness of Breath, Weight gain over 2 pounds If questions or concerns contact your physician Or seek help at emergency department. DIXIE AVALOS DO May 26, 2018 11:21
[2018-05-26 12:30] VITALS: BP 158/75
--- NOTE | 2018-05-26 12:30 | NUR ---
EDI TUCKER demonstrates understanding of discharge instructions and accurately returns instructions upon questioning. Copy of Post-Discharge Instructions given to PT. EDI TUCKER is able to manage continuing needs after discharge. Patients belongings returned to PT. Patient discharged from [facility] on 05/26/18 at 1230. EDI TUCKER left floor via W/C, accompanied by STAFF AND DAUGHTER PER AUTO.
== END 2018-05-26 12:35 | disposition home or self-care (01) | DRG 330 ==
LOC: 4TH 10:30 → SURG 10:31 → 4TH 16:45
PROVIDERS: ADMIT Surgery; ATTEND Surgery
PROC: 0DTF0ZZ Resection of Right Large Intestine, Open Approach (ICD-10-PCS; principal; 2018-05-21 13:48)
DX: C18.2 Malignant neoplasm of ascending colon (principal); E11.9 Type 2 diabetes mellitus without complications; Z68.41 Body mass index [BMI] 40.0-44.9, adult; E66.9 Obesity, unspecified; I10 Essential (primary) hypertension; E78.5 Hyperlipidemia, unspecified; M19.91 Primary osteoarthritis, unspecified site; M54.9 Dorsalgia, unspecified; F32.9 Major depressive disorder, single episode, unspecified; Z79.84 Long term (current) use of oral hypoglycemic drugs; R00.1 Bradycardia, unspecified; E83.42 Hypomagnesemia; E83.52 Hypercalcemia
CPT/HCPCS: 36415; 80048; 80053; 82962; 83735; 85027; 86850; 86900; 86901; 88309; 88341; 88342; 93005; 94664

== ENCOUNTER 2018-06-08 14:47 | Outpatient (RCR) | payer MEDICARE, BC ==
[2018-06-08 15:13] LABS: BASOPHILS % (AUTO) 0 % (0-10); EOSINOPHILS # (AUTO) 0.1 10^3/uL (0.0-0.3); EOSINOPHILS % (AUTO) 2 % (0-10); HEMATOCRIT 32 % (35-52); HEMOGLOBIN 9.9 G/DL (11.5-16.0); LYMPHOCYTES # (AUTO) 1.7 X 10^3 (1.0-4.0); LYMPHOCYTES % (AUTO) 19 % (12-44); MEAN CORPUSCULAR HEMOGLOBIN 30 PG (25-34); MEAN CORPUSCULAR HGB CONC 31 G/DL (32-36); MEAN CORPUSCULAR VOLUME 96 FL (80-99); MEAN PLATELET VOLUME 9.5 FL (7.4-10.4); MONOCYTES # (AUTO) 0.7 X 10^3 (0.0-1.0); MONOCYTES % (AUTO) 8 % (0-12); NEUTROPHILS # (AUTO) 6.3 X 10^3 (1.8-7.8); NEUTROPHILS % (AUTO) 72 % (42-75); PLATELET COUNT 472 10^3/uL (130-400); RED CELL DISTRIBUTION WIDTH 12.8 % (10.0-14.5); WHITE BLOOD COUNT 8.8 10^3/uL (4.3-11.0)
[2018-06-08 15:36] LABS: BILIRUBIN,TOTAL 0.3 MG/DL (0.1-1.0); CREATININE SERUM 1.04 MG/DL (0.60-1.30); POTASSIUM 4.6 MMOL/L (3.6-5.0); TOTAL PROTEIN 7.1 GM/DL (6.4-8.2)
== END 2018-08-13 | disposition home or self-care (01) ==
LOC: ONC 14:47
PROVIDERS: ATTEND Internal Medicine Hematology & Oncology
DX: C18.2 Malignant neoplasm of ascending colon (principal); E11.9 Type 2 diabetes mellitus without complications; I10 Essential (primary) hypertension; E78.00 Pure hypercholesterolemia, unspecified; M17.0 Bilateral primary osteoarthritis of knee; M47.9 Spondylosis, unspecified; Z80.0 Family history of malignant neoplasm of digestive organs; Z79.84 Long term (current) use of oral hypoglycemic drugs; Z79.899 Other long term (current) drug therapy
CPT/HCPCS: 36415; 80053; 85025; 99213; 99214

== ENCOUNTER → 2018-09-24 | Outpatient (CLI) | payer MEDICARE, BC ==
--- NOTE | 2018-09-24 20:02 | Diagnostic Imaging Report ---
INDICATION: Left breast density. Patient presents for six-month followup. COMPARISON: Correlation is made with prior exam from 02/12/2018. EXAMINATION: Unilateral left 2D and 3D diagnostic mammography was performed with CAD. The current study was also evaluated with a Computer Aided Detection (CAD) system. FINDINGS: Scattered fibroglandular densities in the left breast are again noted. The density noted just lateral to the nipple line at mid depth on left CC view is again noted but appears slightly less prominent on today's study. No corresponding density on the MLO view is seen. No new mass or malignant appearing microcalcifications are seen. Left axilla is unremarkable. IMPRESSION: Stable left mammogram. Density noted in the left breast is similar to perhaps slightly less prominent on today's study. Left breast ultrasound will be performed today as well. ACR BI-RADS Category 0: Incomplete. (Needs additional imaging evaluation). Result letter will be mailed to the patient. Note: At least 10% of breast cancer is not imaged by mammography. Dictated by: Dictated on workstation # [id number]
--- NOTE | 2018-09-24 20:21 | Diagnostic Imaging Report ---
INDICATION: Six-month followup left breast nodule. COMPARISON: Correlation is made with prior left breast ultrasound from 02/25/2018. EXAMINATION: Sonographic interrogation of the 2 o'clock location in the left breast, 5 cm from the nipple, was performed. FINDINGS: Hypoechoic mass at this location measures slightly larger on today's study, measuring 7 mm x 4 mm x 6 mm compared with 4 mm x 3 mm x 4 mm on prior. Borders are somewhat indistinct. No internal vascularity is seen. IMPRESSION: Slight increase in size of the hypoechoic mass at the 2 o'clock location of the left breast, 5 cm from the nipple, when compared with examination from 02/25/2018. Borders are somewhat indistinct. Features are somewhat concerning. Tissue sampling is recommended. This would be amenable to ultrasound-guided biopsy. ACR BI-RADS Category 4: Suspicious abnormality. Result letter will be mailed to the patient. Note: At least 10% of breast cancer is not imaged by mammography. Dictated by: Dictated on workstation # [id number]
== END ==
LOC: RAD 13:07
PROVIDERS: ATTEND Family Medicine
DX: N63.21 Unspecified lump in the left breast, upper outer quadrant (principal)
CPT/HCPCS: 76642

== ENCOUNTER → 2018-10-12 | Outpatient (CLI) | payer MEDICARE, BC ==
[~2018-10-12] VITALS: Ht 160 cm; Wt 98.0 kg
[~2018-10-12] MED LIST changes: +FERR-84 PO; +LIDOCAINE 1% INJ 20 ML 20 ML VIAL INJ ONE; +MAGN400C PO; +OLME20TA21 PO
--- NOTE | 2018-10-12 13:43 | Diagnostic Imaging Report ---
INDICATION: Left breast mass. Patient presents for an ultrasound guided biopsy. TECHNIQUE: The patient was brought to the procedure room and placed on the table in the supine position. Ultrasound imaging over the left breast was performed to evaluate for an appropriate entry site. The skin of the left breast was then prepped and draped in the usual sterile fashion. A small amount of 1% lidocaine was utilized for local anesthesia. Multiple passes were made through the small hypoechoic mass at the 2 o'clock location of the left breast utilizing a 14-gauge Achieve needle. A total of three cores were obtained. Next, a marker clip was deployed adjacent to the lesion. Hemostasis was obtained using manual compression. The patient tolerated the procedure well and obtained a post procedure mammogram. The patient left the Department in satisfactory condition. IMPRESSION: Ultrasound guided core biopsy of the subcentimeter hypoechoic mass at the 2 o'clock location of the left breast, as described. The Pathology results are currently pending. Dictated by: Dictated on workstation # [id number]
--- NOTE | 2018-10-12 16:02 | Diagnostic Imaging Report ---
INDICATION: Left breast nodule, status post ultrasound biopsy. TECHNIQUE: 2D CC and MLO views of the left breast were obtained status post left breast biopsy with clip placement. FINDINGS: A marker clip is identified just lateral to the nipple of the left breast on the CC view at mid depth. This is superiorly located on the ML view. Scattered benign calcifications are noted. IMPRESSION: Clip placement in the upper outer left breast, status post biopsy. Dictated by: Dictated on workstation # [id number]
== END ==
LOC: RAD 11:46
PROVIDERS: ATTEND Family Medicine
DX: N63.21 Unspecified lump in the left breast, upper outer quadrant (principal); Z98.890 Other specified postprocedural states
CPT/HCPCS: 19083; 88305; 88341; 88342; 88360

== ENCOUNTER 2018-10-29 08:43 | Outpatient (CLI) | payer MEDICARE, BC ==
[~2018-10-29] VITALS: Ht 160 cm; Wt 100.3 kg
[~2018-10-29 08:43] MED LIST changes: -FERR-84 PO; -LIDOCAINE 1% INJ 20 ML 20 ML VIAL INJ ONE; -MAGN400C PO; -OLME20TA21 PO
[2018-10-29] MEDS ORDERED: OLME20TA21 PO (08:59)
[2018-10-29] MEDS ORDERED: MAGN400C PO (08:59)
[2018-10-29] MEDS ORDERED: FERR-84 PO (08:59)
[2018-10-29] MEDS ORDERED: OMG1KC PO (08:59)
[2018-10-29 09:03] VITALS: BP 153/59
== END 2018-10-29 11:02 | disposition home or self-care (01) ==
LOC: PREOP 08:43
PROVIDERS: ATTEND Surgery
DX: Z01.818 Encounter for other preprocedural examination (principal)
CPT/HCPCS: 87081

== ENCOUNTER 2018-11-05 06:27 | Day surgery (SDC) | payer MEDICARE, BC ==
[2018-11-05] VITALS (11 sets, daily range): BP systolic 111–179; BP diastolic 53–86
[~2018-11-05] VITALS: Ht 160 cm; Wt 100.3 kg
[~2018-11-05 06:27] MED LIST changes: +FERR-84 PO; +MAGN400C PO; +OLME20TA21 PO
[2018-11-05] MEDS ORDERED: LACTATED RINGERS 1,000 ML IV PRN (07:02)
[2018-11-05] MEDS ORDERED: ceFAZolin 2 GM/50 ML NS 50 ML IV ONE (07:15)
--- NOTE | 2018-11-05 07:46 | Progress Note-Pre Operative ---
Pre-Operative Progress Note H&P Reviewed The H&P was reviewed, patient examined and no changes noted. Date Seen by Provider: Nov 05, 2018 Time Seen by Provider: 07:46 Date H&P Reviewed: Nov 05, 2018 Time H&P Reviewed: 07:46 Pre-Operative Diagnosis: lobular carcinoma left breast DIXIE AVALOS DO Nov 05, 2018 07:46
[2018-11-05] MEDS ORDERED: LIDOCAINE 1% INJ 20 ML 20 ML VIAL INJ ONE (08:15)
[2018-11-05] MEDS ORDERED: MIDAZOLAM 2 MG/2 ML (VERSED) VIAL ONE (11:14)
[2018-11-05] MEDS ORDERED: LIDOCAINE PF 2% 5 ML (XYLOCAINE) VIAL ONE (11:14)
[2018-11-05] MEDS ORDERED: proPOfol 200 MG/20 ML (DIPRIVAN) VIAL IV ONE (11:14)
[2018-11-05] MEDS ORDERED: ONDANSETRON 4 MG/2 ML (SDV) Z0FRAN ONE (11:14)
[2018-11-05] MEDS ORDERED: DEXAMETHASONE 10 MG/ML (DECADRON) 1 ML VIAL ONE (11:14)
[2018-11-05] MEDS ORDERED: fentaNYL INJECTION 100 MCG/2 ML AMP ONE (11:14)
[2018-11-05] MEDS ORDERED: BUP/EPI 0.5% 1:200,000 (MARCAINE) 10ML VIAL IJ ONE (11:35)
[2018-11-05] MEDS ORDERED: ceFAZolin 2 GM/50 ML NS 50 ML ONE (11:42)
[2018-11-05] MEDS ORDERED: 0.9% SODIUM CHLORIDE PF INJ 20 ML VIAL ONE (11:46)
[2018-11-05] MEDS ORDERED: SEVOFLURANE (ULTANE) 15 ML INHAL SOLN ONE ×5 (12:04→13:31)
[2018-11-05] MEDS ORDERED: GLYCOPYRROLATE 0.2 MG/ML (ROBINUL) 2 ML VIAL ONE ×2 (12:45→12:54)
[2018-11-05] MEDS ORDERED: ATROPINE INJ 0.4 MG/ML SDV ONE (12:45)
--- NOTE | 2018-11-05 13:42 | Progress Note-Post Operative ---
Post-Operative Progess Note Surgeon (s)/Hypnotherapist (s) Surgeon DIXIE AVALOS DO Hypnotherapist: na Pre-Operative Diagnosis lobular carcinoma left breast Post-Operative Diagnosis same Procedure & Operative Findings Date of Procedure 11/05/18 Procedure Performed/Findings left breast wire localized lumpectomy c sentinel node biopsy Anesthesia Type gen Estimated Blood Loss Estimated blood loss (mL): minimal Specimens/Packing Specimens Removed left sentinel node, wire localized lumpectomy, inferior margin DIXIE AVALOS DO Nov 05, 2018 13:42
[2018-11-05] MEDS ORDERED: DOCU-143 PO (13:44)
[2018-11-05] MEDS ORDERED: ACHD5005 PO (13:44)
--- NOTE | 2018-11-05 13:47 | Discharge Inst-Simple/Standard ---
Discharge Inst-Standard Discharge Medications New, Converted or Re-Newed RX: RX on Chart Patient Instructions/Follow Up Plan of Care/Instructions/FU: 2 weeks Odilia Keep compressive support (sports bra on). Activity as Tolerated: No Discharge Diet: Regular Diet Other Inst to Patient Follow up Appt: Make appointment for 2 week. Instructions: No lifting greater than 10 pounds. Wear compressive supportive bra (sports bra) until seen in the clinic. No strenuous activity. May shower in 24 hours, no tub bath or soaking. Use incentive spirometer at home as directed. No Smoking Skin/Wound Care: May remove bandages in 48 hours. You have special glue over incisions it will fall off on their own. Symptoms to Report: Appetite Changes, Extremity Discoloration, Numbness/Tingling, Swelling Increase d, Bleeding Excessive, Eyesight Changes, Pain Increased, Urine Color Change, Constipation(Persistent), Fever over 101 degree F, Pain/Pressure in chest, Urinating Difficulty, Cough Up/Vomit Blood, Heart Beat Irreg/Pounding, Pain/Pressure in jaw, Vaginal Bleeding Increase, Cramps in feet or legs, Lightheadedness, Pain/Pressure in shoulder, Diarrhea(Persistent), Memory Changes Suddenly, Questions/Concerns, Weight gain consecutive days, Dizziness/Fainting, Nausea/Vomiting, Shortness of Breath, Weight gain over 2 pounds If questions or concerns contact your physician Or seek help at emergency department. DIXIE AVALOS DO Nov 05, 2018 13:47
[2018-11-05] MEDS ORDERED: MEPERIDINE (DEMEROL) INJ 50 MG/ML IVP ONE (14:00)
[2018-11-05] MEDS ORDERED: ONDANSETRON 4 MG/2 ML (SDV) Z0FRAN IVP PRN (14:00)
[2018-11-05] MEDS ORDERED: morphine INJ 10 MG/ML 1ML (SYR OR VIAL) IVP ONE (14:00)
[2018-11-05] MEDS ORDERED: HYDROmorphone 2 MG/ML VIAL (DILAUDID) IV ONE (14:00)
--- NOTE | 2018-11-05 14:11 | Diagnostic Imaging Report ---
Indication: Left breast carcinoma, status post lumpectomy. 2 specimen radiographs were obtained. The hookwire and the marker clip are located within the specimen. Nodular density adjacent to the thicker portion of the hookwire is also seen. Nodular density is located at coordinates H. 3-1/2 on the film timed 1:36 PM. The marker is located at coordinates H3 on film labeled 1:36 PM. On film at 1:30 PM markers located at K4. Impression: Hookwire and marker clip are located within the specimen. Dictated by: Dictated on workstation # [id number]
[2018-11-05] MEDS ORDERED: INDIGO CARMINE 8 MG/ML 5 ML AMP INJ ONE (14:30)
--- NOTE | 2018-11-05 14:30 | Anesthesia-General Post-Op ---
General Patient Condition Mental Status/LOC: Same as Preop Cardiovascular: Satisfactory Nausea/Vomiting: Absent Respiratory: Satisfactory Pain: Controlled Complications: Absent Post Op Complications Complications None Follow Up Care/Instructions Patient Instructions None needed. Anesthesia/Patient Condition Patient Condition Patient is doing well, no complaints, stable vital signs, no apparent adverse anesthesia problems. No complications reported per nursing. GRICEL SÁNCHEZ CRNA Nov 05, 2018 14:30
[2018-11-05] MEDS ORDERED: HYDROcodone/APAP 5 MG/325 MG (LORTAB) TAB ONE (14:33)
[2018-11-05] MEDS ORDERED: HYDROcodone/APAP 5 MG/325 MG (LORTAB) TAB PO ONE (14:45)
--- NOTE | 2018-11-05 22:29 | Diagnostic Imaging Report ---
INDICATION: Breast carcinoma. Patient was administered a total of 1.0 mCi of filtered technetium 99m sulfur colloid administered in 4 separate aliquots in the left breast in a periareolar distribution. Imaging was then performed for 135 minutes. [place] node in left axilla was marked on the patient's skin. IMPRESSION: Left breast lymphoscintigraphy for identification of sentinel nodes, as described. Dictated by: Dictated on workstation # [id number]
--- NOTE | 2018-11-05 22:48 | Diagnostic Imaging Report ---
INDICATION: Left breast carcinoma. Patient presents for wire localization using ultrasound guidance. Patient was brought to the procedure room, placed on the table in the supine position. Ultrasound imaging of the left breast was performed to evaluate appropriate entry site. Localization needle was advanced into the left breast from a lateral approach, placed with its tip just beyond the hypoechoic mass at the 2 o'clock location of the left breast approximately 3 cm from the nipple. Hookwire was then deployed and needle was removed. Wire was affixed to the patient's skin. Patient tolerated the procedure well and was sent for postprocedure mammogram in satisfactory condition. IMPRESSION: Successful ultrasound guided hookwire placement adjacent to the subcentimeter hypoechoic mass 2 o'clock location of the left breast previously biopsied. Dictated by: Dictated on workstation # [id number]
--- NOTE | 2018-11-05 23:28 | Diagnostic Imaging Report ---
INDICATION: Left breast carcinoma, status post hookwire placement. Correlation is made with prior exam from 10/12/2018 and 09/24/2018. Unilateral left 2-D CC and mL mammography was performed. Hookwire enters from the upper-outer left breast. Hookwire is seen adjacent to the marker clip in the mid left breast. Hook portion of the wire does pass beyond the marker clip left breast. IMPRESSION: Satisfactory hookwire localization of left breast mass marker clip, as described. Dictated by: Dictated on workstation # [id number]
--- NOTE | 2018-11-11 06:31 | OPERATIVE REPORT ---
DATE OF SERVICE: 11/05/2018 PREOPERATIVE DIAGNOSIS: Lobular carcinoma, left breast. POSTOPERATIVE DIAGNOSIS: Lobular carcinoma, left breast. PROCEDURE: Left breast wire localized lumpectomy with sentinel node biopsy. SURGEON: Dixie Hartley DO ANESTHESIA: General. ESTIMATED BLOOD LOSS: Minimal. COMPLICATIONS: None. INDICATIONS: The patient is a 78-year-old female with lobular carcinoma of the left breast proven by biopsy. She understands risks and benefits of procedure and wished to proceed with procedure. Consent was signed in the chart. DESCRIPTION OF PROCEDURE: The patient was taken to the operating suite. She was prepped and draped in sterile fashion. Surgical pause was performed. A navigator was used to isolate the sentinel node. Over the most intense area, an incision was made with 15 blade scalpel. Subcutaneous tissues were then divided with both cautery and blunt dissection and previous to incision Indigo carmine was injected for lymphatic pickup. The sentinel node was able to be isolated with the count being 543. This was able to be dissected around and cautery was used to remove and achieve hemostasis. A 10-second count on the node was 6549. No other nodes were able to be palpable or located using the navigator. The 10-second background count was 18. The wound was then irrigated with copious amounts of irrigation and the subcutaneous tissues were reapproximated using 3-0 Vicryl. Skin was then closed using 4-0 Monocryl in a subcuticular fashion. The wire was placed by radiology prior to going to the operating room. An elliptical incision was made over the lateral aspect of the breast with taking a piece of skin and removing the previous cut and biopsy. The wire was incorporated into the incisional sites. Cautery was used to dissect circumferentially around the wire until the wire was completely removed. There was an aspect of the specimen that worked in and therefore a further excision was performed correlating with the specimen for further margin. The wound was irrigated with copious amounts of irrigation and suction. Hemostasis was achieved. The subcutaneous tissues were reapproximated using 3-0 Vicryl. The skin was then closed using 4-0 Monocryl in subcuticular fashion. Radiology demonstrated a wire and a biopsy clip were removed in the specimen and the breast and the axilla were irrigated with copious amounts of irrigation and Skin Affix was placed over the incisions. The patient tolerated procedure well without any complications. She was taken to recovery room in stable condition. Job ID: [id number] DocumentID: [id number] Dictated Date: 11/06/2018 17:12:58 Rotary Pump Operator Date: 11/06/2018 20:53:38 Dictated By: DIXIE HARTLEY DO
== END 2018-11-05 15:55 | disposition home or self-care (01) ==
LOC: RAD 06:27
PROVIDERS: ATTEND Surgery
DX: C50.412 Malignant neoplasm of upper-outer quadrant of left female breast (principal); E11.9 Type 2 diabetes mellitus without complications; I10 Essential (primary) hypertension; E78.00 Pure hypercholesterolemia, unspecified; E78.5 Hyperlipidemia, unspecified; F32.9 Major depressive disorder, single episode, unspecified; E66.01 Morbid (severe) obesity due to excess calories; Z85.038 Personal history of other malignant neoplasm of large intestine; Z79.84 Long term (current) use of oral hypoglycemic drugs; Z79.899 Other long term (current) drug therapy; Z79.82 Long term (current) use of aspirin; Z80.3 Family history of malignant neoplasm of breast; Z80.1 Family history of malignant neoplasm of trachea, bronchus and lung; Z68.39 Body mass index [BMI] 39.0-39.9, adult
CPT/HCPCS: 19285; 76098; 78195; 82962

== ENCOUNTER 2018-12-03 12:59 | Outpatient (RCR) | payer MEDICARE, BC ==
[2018-09-10 11:20] LABS: BASOPHILS % (AUTO) 0 % (0-10); EOSINOPHILS # (AUTO) 0.1 10^3/uL (0.0-0.3); EOSINOPHILS % (AUTO) 2 % (0-10); HEMATOCRIT 35 % (35-52); HEMOGLOBIN 11.5 G/DL (11.5-16.0); LYMPHOCYTES # (AUTO) 1.5 X 10^3 (1.0-4.0); LYMPHOCYTES % (AUTO) 25 % (12-44); MEAN CORPUSCULAR HEMOGLOBIN 30 PG (25-34); MEAN CORPUSCULAR HGB CONC 33 G/DL (32-36); MEAN CORPUSCULAR VOLUME 92 FL (80-99); MEAN PLATELET VOLUME 9.3 FL (7.4-10.4); MONOCYTES # (AUTO) 0.4 X 10^3 (0.0-1.0); MONOCYTES % (AUTO) 7 % (0-12); NEUTROPHILS # (AUTO) 4.1 X 10^3 (1.8-7.8); NEUTROPHILS % (AUTO) 67 % (42-75); PLATELET COUNT 265 10^3/uL (130-400); RED CELL DISTRIBUTION WIDTH 14.9 % (10.0-14.5); WHITE BLOOD COUNT 6.2 10^3/uL (4.3-11.0)
[2018-09-10 11:46] LABS: ALBUMIN 4.4 GM/DL (3.2-4.5); BILIRUBIN,TOTAL 0.4 MG/DL (0.1-1.0); CALCIUM 11.2 MG/DL (8.5-10.1); CREATININE SERUM 1.07 MG/DL (0.60-1.30); POTASSIUM 4.4 MMOL/L (3.6-5.0); TOTAL PROTEIN 7.4 GM/DL (6.4-8.2)
[2018-11-19 11:03] LABS: BASOPHILS % (AUTO) 0 % (0-10); EOSINOPHILS # (AUTO) 0.1 10^3/uL (0.0-0.3); EOSINOPHILS % (AUTO) 2 % (0-10); HEMATOCRIT 36 % (35-52); HEMOGLOBIN 11.7 G/DL (11.5-16.0); LYMPHOCYTES # (AUTO) 1.7 X 10^3 (1.0-4.0); LYMPHOCYTES % (AUTO) 23 % (12-44); MEAN CORPUSCULAR HEMOGLOBIN 31 PG (25-34); MEAN CORPUSCULAR HGB CONC 33 G/DL (32-36); MEAN CORPUSCULAR VOLUME 95 FL (80-99); MEAN PLATELET VOLUME 9.4 FL (7.4-10.4); MONOCYTES # (AUTO) 0.6 X 10^3 (0.0-1.0); MONOCYTES % (AUTO) 8 % (0-12); NEUTROPHILS # (AUTO) 4.9 X 10^3 (1.8-7.8); NEUTROPHILS % (AUTO) 68 % (42-75); PLATELET COUNT 304 10^3/uL (130-400); RED CELL DISTRIBUTION WIDTH 13.3 % (10.0-14.5); WHITE BLOOD COUNT 7.3 10^3/uL (4.3-11.0)
[2018-11-19 11:32] LABS: ALBUMIN 4.2 GM/DL (3.2-4.5); BILIRUBIN,TOTAL 0.4 MG/DL (0.1-1.0); CALCIUM 11.3 MG/DL (8.5-10.1); CREATININE SERUM 1.01 MG/DL (0.60-1.30); POTASSIUM 4.8 MMOL/L (3.6-5.0); TOTAL PROTEIN 7.1 GM/DL (6.4-8.2)
== END 2018-12-09 | disposition home or self-care (01) ==
LOC: ONC 12:59
PROVIDERS: ATTEND Internal Medicine Hematology & Oncology
DX: Z51.0 Encounter for antineoplastic radiation therapy (principal); C18.2 Malignant neoplasm of ascending colon; E11.9 Type 2 diabetes mellitus without complications; I10 Essential (primary) hypertension; E78.00 Pure hypercholesterolemia, unspecified; M17.0 Bilateral primary osteoarthritis of knee; M47.9 Spondylosis, unspecified; Z80.0 Family history of malignant neoplasm of digestive organs; Z79.84 Long term (current) use of oral hypoglycemic drugs; Z79.899 Other long term (current) drug therapy
CPT/HCPCS: 36415; 77290; 77295; 77300; 77334; 80053; 82378; 85025; 99204; 99213

== ENCOUNTER → 2019-02-02 | Outpatient (CLI) | payer MEDICARE, BC ==
--- NOTE | 2019-02-02 17:37 | Diagnostic Imaging Report ---
INDICATION: 79-year-old female, postmenopausal. Screening for osteoporosis. History of breast cancer. COMPARISON: FINDINGS: AP Spine L1-L4: [BMD (g/cm2): 1.269] [T-Score: 0.6] [Z-Score: 1.2] [BMD Previous: NA] [BMD % Change: NA] LT Hip Neck: [BMD (g/cm2): 1.196] [T-Score: 1.1] [Z-Score: 2.4] LT Hip Total: [BMD (g/cm2):1.240] [T-Score:1.8] [Z-Score: 2.9] [BMD Previous: NA] [BMD % Change: NA] RT Hip Neck: [BMD (g/cm2):1.071] [T-Score:0.2] [Z-Score:1.5] RT Hip Total: [BMD (g/cm2):1.092] [T-score:.7] [Z-Score:1.7] [BMD Previous:NA] [BMD % Change:NA] *Indicates significant change from prior examination based on 95% confidence level. World Health Organization criteria for BMD interpretation classify patients as Normal (T-score at or above -1.0), Osteopenic (T-score between -1.0 and -2.5) or Osteoporotic (T-score at or below -2.5). LIMITATIONS AND MODIFICATION: None. FRACTURE RISK (FRAX SCORE): The ten year probability of (%): Major Osteoporotic Fracture: [NA] Hip Fracture: [NA] IMPRESSION: 1. Normal bone mineral density. 2. Baseline examination. 3. See below National Osteoporosis Foundation guidelines on when to potentially initiate pharmacologic therapy. Based on the National Osteoporosis Foundation Guidelines, pharmacologic treatment should be initiated in any of the following, unless clinical conditions suggest otherwise: * Any patient with prior fragility fracture of the hip or vertebrae. A spine fracture indicates 5X risk for subsequent spine fracture and 2X risk for subsequent hip fracture. * Osteoporosis (T-score <-2.5). * Postmenopausal women and men age 50 and older with low bone mass/osteopenia (T-score between -1.0 and -2.5) by DXA and 10-year major osteoporotic fracture greater than 20% or a 10-year probability of hip fracture greater than 3%. These fracture risks are supplied above in the FRAX score, if applicable. * Clinician judgement and/or patient preferences may indicate treatment for people with 10-year fracture probabilities above or below these levels. Dictated by: Dictated on workstation # [id number]
== END ==
LOC: RAD 10:04
PROVIDERS: ATTEND Nurse Practitioner Adult Health
DX: Z13.820 Encounter for screening for osteoporosis (principal); C50.412 Malignant neoplasm of upper-outer quadrant of left female breast; C18.2 Malignant neoplasm of ascending colon; N18.3 Chronic kidney disease, stage 3 (moderate); Z78.0 Asymptomatic menopausal state
CPT/HCPCS: 77080

== ENCOUNTER 2019-02-04 09:41 | Outpatient (RCR) | payer MEDICARE, BC ==
[2019-01-07 13:14] LABS: BASOPHILS % (AUTO) 0 % (0-10); EOSINOPHILS # (AUTO) 0.1 10^3/uL (0.0-0.3); EOSINOPHILS % (AUTO) 2 % (0-10); HEMATOCRIT 34 % (35-52); LYMPHOCYTES # (AUTO) 0.8 X 10^3 (1.0-4.0); LYMPHOCYTES % (AUTO) 14 % (12-44); MEAN CORPUSCULAR HEMOGLOBIN 31 PG (25-34); MEAN CORPUSCULAR HGB CONC 33 G/DL (32-36); MEAN CORPUSCULAR VOLUME 95 FL (80-99); MONOCYTES # (AUTO) 0.7 X 10^3 (0.0-1.0); MONOCYTES % (AUTO) 12 % (0-12); NEUTROPHILS # (AUTO) 3.9 X 10^3 (1.8-7.8); NEUTROPHILS % (AUTO) 71 % (42-75); PLATELET COUNT 312 10^3/uL (130-400); RED CELL DISTRIBUTION WIDTH 13.3 % (10.0-14.5); WHITE BLOOD COUNT 5.5 10^3/uL (4.3-11.0)
[2019-01-07 13:32] LABS: ALBUMIN 4.1 GM/DL (3.2-4.5); BILIRUBIN,TOTAL 0.4 MG/DL (0.1-1.0); CALCIUM 10.4 MG/DL (8.5-10.1); CREATININE SERUM 1.07 MG/DL (0.60-1.30); POTASSIUM 4.5 MMOL/L (3.6-5.0); TOTAL PROTEIN 7.3 GM/DL (6.4-8.2)
[2019-02-04 09:57] LABS: BASOPHILS % (AUTO) 0 % (0-10); EOSINOPHILS # (AUTO) 0.2 10^3/uL (0.0-0.3); EOSINOPHILS % (AUTO) 3 % (0-10); HEMATOCRIT 37 % (35-52); HEMOGLOBIN 12.2 G/DL (11.5-16.0); LYMPHOCYTES # (AUTO) 0.8 X 10^3 (1.0-4.0); LYMPHOCYTES % (AUTO) 12 % (12-44); MEAN CORPUSCULAR HEMOGLOBIN 32 PG (25-34); MEAN CORPUSCULAR HGB CONC 33 G/DL (32-36); MEAN CORPUSCULAR VOLUME 97 FL (80-99); MEAN PLATELET VOLUME 9.4 FL (7.4-10.4); MONOCYTES # (AUTO) 0.7 X 10^3 (0.0-1.0); MONOCYTES % (AUTO) 10 % (0-12); NEUTROPHILS # (AUTO) 4.9 X 10^3 (1.8-7.8); NEUTROPHILS % (AUTO) 75 % (42-75); PLATELET COUNT 306 10^3/uL (130-400); RED CELL DISTRIBUTION WIDTH 13.5 % (10.0-14.5); WHITE BLOOD COUNT 6.5 10^3/uL (4.3-11.0)
[2019-02-04 10:13] LABS: ALANINE AMINOTRANSFERASE 25 U/L (0-55); ALBUMIN 4.6 GM/DL (3.2-4.5); ALKALINE PHOSPHATASE 67 U/L (40-136); BILIRUBIN,TOTAL 0.4 MG/DL (0.1-1.0); BUN/CREATININE RATIO 22; CALCIUM 10.9 MG/DL (8.5-10.1); CARBON DIOXIDE 24 MMOL/L (21-32); CHLORIDE 102 MMOL/L (98-107); CREATININE SERUM 1.04 MG/DL (0.60-1.30); GFR ESTIMATED 51; GLUCOSE 330 MG/DL (70-105); POTASSIUM 4.3 MMOL/L (3.6-5.0); SODIUM 138 MMOL/L (135-145); TOTAL PROTEIN 7.6 GM/DL (6.4-8.2)
== END 2019-03-09 | disposition home or self-care (01) ==
LOC: ONC 09:41
PROVIDERS: ATTEND Internal Medicine Hematology & Oncology
DX: Z51.0 Encounter for antineoplastic radiation therapy (principal); C18.2 Malignant neoplasm of ascending colon; E11.9 Type 2 diabetes mellitus without complications; I10 Essential (primary) hypertension; E78.00 Pure hypercholesterolemia, unspecified; M17.0 Bilateral primary osteoarthritis of knee; M47.9 Spondylosis, unspecified; Z80.0 Family history of malignant neoplasm of digestive organs; Z79.84 Long term (current) use of oral hypoglycemic drugs; Z79.899 Other long term (current) drug therapy
CPT/HCPCS: 36415; 77295; 77300; 77307; 77334; 77336; 77417; 77470; 80053; 82306; 82378; 85025; 99213

== ENCOUNTER 2019-04-12 13:56 | Outpatient (RCR) | payer MEDICARE, BC ==
[2019-03-29 14:43] LABS: BASOPHILS % (AUTO) 0 % (0-10); EOSINOPHILS # (AUTO) 0.1 10^3/uL (0.0-0.3); EOSINOPHILS % (AUTO) 1 % (0-10); HEMATOCRIT 36 % (35-52); HEMOGLOBIN 11.8 G/DL (11.5-16.0); LYMPHOCYTES # (AUTO) 0.7 X 10^3 (1.0-4.0); LYMPHOCYTES % (AUTO) 12 % (12-44); MEAN CORPUSCULAR HEMOGLOBIN 32 PG (25-34); MEAN CORPUSCULAR HGB CONC 33 G/DL (32-36); MEAN CORPUSCULAR VOLUME 96 FL (80-99); MEAN PLATELET VOLUME 9.5 FL (7.4-10.4); MONOCYTES # (AUTO) 0.7 X 10^3 (0.0-1.0); MONOCYTES % (AUTO) 11 % (0-12); NEUTROPHILS # (AUTO) 4.7 X 10^3 (1.8-7.8); NEUTROPHILS % (AUTO) 76 % (42-75); PLATELET COUNT 284 10^3/uL (130-400); RED CELL DISTRIBUTION WIDTH 13.3 % (10.0-14.5); WHITE BLOOD COUNT 6.2 10^3/uL (4.3-11.0)
[2019-03-29 15:04] LABS: ALBUMIN 4.3 GM/DL (3.2-4.5); BILIRUBIN,TOTAL 0.3 MG/DL (0.1-1.0); CALCIUM 11.1 MG/DL (8.5-10.1); CREATININE SERUM 1.2 MG/DL (0.60-1.30); POTASSIUM 4.9 MMOL/L (3.6-5.0); TOTAL PROTEIN 7.2 GM/DL (6.4-8.2)
[~2019-04-12 13:56] MED LIST changes: -GLIM4TAB PO; +GLIM4TAB5 PO; -HYDR-3062 PO; +SIMV20TA26 PO; -SIMV20TA3 PO; -TRAM50TA2 PO; +TRM50T PO
[2019-04-12 14:34] LABS: ALBUMIN 4.4 GM/DL (3.2-4.5); BILIRUBIN,TOTAL 0.4 MG/DL (0.1-1.0); CREATININE SERUM 1.25 MG/DL (0.60-1.30); POTASSIUM 4.7 MMOL/L (3.6-5.0); TOTAL PROTEIN 7.2 GM/DL (6.4-8.2)
[2019-05-04] MEDS ORDERED: LETR2.5T6 PO (15:44)
[2019-05-04] MEDS ORDERED: GLIM2TAB4 PO (15:44)
[2019-05-04] MEDS ORDERED: SITA100T12 PO (15:44)
== END 2019-06-27 | disposition home or self-care (01) ==
LOC: ONC 13:56
PROVIDERS: ATTEND Internal Medicine Hematology & Oncology
DX: C50.412 Malignant neoplasm of upper-outer quadrant of left female breast (principal); C18.2 Malignant neoplasm of ascending colon; E11.9 Type 2 diabetes mellitus without complications; I10 Essential (primary) hypertension; E78.00 Pure hypercholesterolemia, unspecified; M17.0 Bilateral primary osteoarthritis of knee; M47.9 Spondylosis, unspecified; Z80.0 Family history of malignant neoplasm of digestive organs; Z79.84 Long term (current) use of oral hypoglycemic drugs; Z79.899 Other long term (current) drug therapy; Z92.3 Personal history of irradiation; Z90.49 Acquired absence of other specified parts of digestive tract
CPT/HCPCS: 80053; 85025; 99213

== ENCOUNTER 2019-05-04 05:35 | Outpatient (CLI) | payer MEDICARE, BC ==
[~2019-05-04] VITALS: Ht 157.5 cm; Wt 100.5 kg
[~2019-05-04 05:35] MED LIST changes: +GLIM4TAB3 PO; -GLIM4TAB5 PO; +HYDR-3062 PO
[2019-05-04] MEDS ORDERED: SITA100T12 PO (15:44)
[2019-05-04] MEDS ORDERED: LETR2.5T5 PO (15:44)
[2019-05-04] MEDS ORDERED: GLIM2TAB2 PO (15:44)
== END 2019-05-04 15:47 | disposition home or self-care (01) ==
LOC: PREOP 05:35
PROVIDERS: ATTEND Surgery
DX: Z01.818 Encounter for other preprocedural examination (principal)

== ENCOUNTER 2019-05-11 09:59 | Day surgery (SDC) | payer MEDICARE, BC ==
[~2019-05-11] VITALS: Ht 157 cm; Wt 100.5 kg
[~2019-05-11 09:59] MED LIST changes: +GLIM2TAB4 PO; -GLIM4TAB3 PO; +GLIM4TAB5 PO; +LETR2.5T6 PO
[2019-05-11] MEDS ORDERED: LACTATED RINGERS 1,000 ML IV ONE (10:07)
[2019-05-11] MEDS ORDERED: LACTATED RINGERS 1,000 ML IV STA (10:08)
[2019-05-11 10:10] VITALS: BP 158/58
--- NOTE | 2019-05-11 11:12 | Progress Note-Pre Operative ---
Pre-Operative Progress Note H&P Reviewed The H&P was reviewed, patient examined and no changes noted. Date Seen by Provider: May 11, 2019 Time Seen by Provider: 11:12 Date H&P Reviewed: May 11, 2019 Time H&P Reviewed: 11:12 Pre-Operative Diagnosis: history of colon cancer DIXIE AVALOS DO May 11, 2019 11:12
[2019-05-11] MEDS ORDERED: PROPOFOL INJECTION 50 ML IV ONE (11:32)
[2019-05-11] MEDS ORDERED: MIDAZOLAM 2 MG/2 ML (VERSED) VIAL ONE (11:33)
[2019-05-11] MEDS ORDERED: GLYCOPYRROLATE 0.2 MG/ML (ROBINUL) 2 ML VIAL ONE (11:35)
--- NOTE | 2019-05-11 11:41 | Progress Note-Post Operative ---
Post-Operative Progess Note Surgeon (s)/Community Recreation Programmer (s) Surgeon DIXIE AVALOS DO Community Recreation Programmer: na Pre-Operative Diagnosis history of colon cancer Post-Operative Diagnosis normal colon Procedure & Operative Findings Date of Procedure 05/11/19 Procedure Performed/Findings colonoscopy Anesthesia Type per TIRE BUILDER Estimated Blood Loss Estimated blood loss (mL): na Specimens/Packing Specimens Removed na DIXIE AVALOS DO May 11, 2019 11:41
[2019-05-11 12:00] VITALS: BP 193/75
[2019-05-11 12:05] VITALS: BP 176/76
[2019-05-11 12:09] VITALS: BP 165/72
[2019-05-11 12:10] VITALS: BP 143/63
[2019-05-11 12:55] VITALS: BP 143/63
--- NOTE | 2019-05-11 13:42 | Anesthesia-General Post-Op ---
MAC Patient Condition Mental Status/LOC: Same as Preop Cardiovascular: Satisfactory Nausea/Vomiting: Absent Respiratory: Satisfactory Pain: Controlled Complications: Absent Post Op Complications Complications None Follow Up Care/Instructions Patient Instructions None needed. Anesthesiology Discharge Order Discharge Order Patient is doing well, no complaints, stable vital signs, no apparent adverse anesthesia problems. No complications reported per nursing. RY LORENZO CRNA May 11, 2019 13:42
--- NOTE | 2019-05-11 16:45 | OPERATIVE REPORT ---
DATE OF SERVICE: 05/11/2019 PREOPERATIVE DIAGNOSIS: History of colon cancer. POSTOPERATIVE DIAGNOSIS: Normal colon. PROCEDURE: Colonoscopy. SURGEON: Dixie Hartley DO ANESTHESIA: Per WEBSPHERE DEVELOPER. ESTIMATED BLOOD LOSS: None. COMPLICATIONS: None. INDICATIONS: The patient is a 39-year-old female with history of colon cancer. She had a right colectomy performed. She understands risks and benefits of procedure and wished to proceed with procedure. Consent was signed in the chart. DESCRIPTION OF PROCEDURE: The patient was taken to the endoscopy suite, placed in left lateral recumbent position. Timeout was performed. Digital rectal exam was performed. There were no palpable polyps, masses, or ulcerations. Scope was inserted in the rectum and advanced all the way to the ileocolonic anastomosis. There were no polyps, masses or ulcerations visualized. Prep was adequate. Scope was then slowly retracted back. There were no polyps, masses, or ulcerations at the anastomotic site. The scope was then continuously retracted back. No polyps, masses, or ulcerations through the remainder of the transverse, descending and sigmoid colon. Once in the rectum, scope was retroflexed noting no other pathology. Scope was returned to its normal position, slowly withdrawn until completely removed. The patient tolerated procedure well without any complications. She was taken to recovery room in stable condition. RECOMMENDATIONS: The patient will need repeat colonoscopy in 2 years. Any issues before that be seen at that time. Job ID: [id number] DocumentID: [id number] Dictated Date: 05/11/2019 14:58:33 Solutions Sales Executive Date: 05/11/2019 16:44:35 Dictated By: DIXIE HARTLEY DO
== END 2019-05-11 13:10 | disposition home or self-care (01) ==
LOC: ENDO 09:59
PROVIDERS: ATTEND Surgery
DX: Z85.038 Personal history of other malignant neoplasm of large intestine (principal); I10 Essential (primary) hypertension; E78.5 Hyperlipidemia, unspecified; E78.00 Pure hypercholesterolemia, unspecified; E11.9 Type 2 diabetes mellitus without complications; F32.9 Major depressive disorder, single episode, unspecified; E66.01 Morbid (severe) obesity due to excess calories; Z68.41 Body mass index [BMI] 40.0-44.9, adult; Z98.0 Intestinal bypass and anastomosis status; Z79.84 Long term (current) use of oral hypoglycemic drugs; Z79.899 Other long term (current) drug therapy; Z98.51 Tubal ligation status; Z90.89 Acquired absence of other organs; Z85.3 Personal history of malignant neoplasm of breast; Z80.0 Family history of malignant neoplasm of digestive organs; Z80.3 Family history of malignant neoplasm of breast; Z80.1 Family history of malignant neoplasm of trachea, bronchus and lung
CPT/HCPCS: 82962

== ENCOUNTER 2019-05-11 18:55 | Emergency (ER) | payer MEDICARE, BC ==
[~2019-05-11] VITALS: Ht 157.4 cm; Wt 81.6 kg
--- NOTE | 2019-05-11 19:00 | NUR ---
REGISTRATION PLACED PATIENT HERE WHEN HAD NOT ACTUALLY ARRIVED UNTIL 1900.
[2019-05-11] MEDS ORDERED: ACETAMINOPHEN 650 MG SUPP (TYLENOL) PR ONE (19:15)
[2019-05-11 19:22] LABS: BASOPHILS % (AUTO) 0 % (0-10); EOSINOPHILS % (AUTO) 0 % (0-10); HEMATOCRIT 37 % (35-52); HEMOGLOBIN 12.2 G/DL (11.5-16.0); LYMPHOCYTES # (AUTO) 0.7 X 10^3 (1.0-4.0); LYMPHOCYTES % (AUTO) 7 % (12-44); MEAN CORPUSCULAR HEMOGLOBIN 31 PG (25-34); MEAN CORPUSCULAR HGB CONC 33 G/DL (32-36); MEAN CORPUSCULAR VOLUME 94 FL (80-99); MEAN PLATELET VOLUME 9.5 FL (7.4-10.4); MONOCYTES # (AUTO) 0.5 X 10^3 (0.0-1.0); MONOCYTES % (AUTO) 5 % (0-12); NEUTROPHILS # (AUTO) 7.8 X 10^3 (1.8-7.8); NEUTROPHILS % (AUTO) 87 % (42-75); PLATELET COUNT 257 10^3/uL (130-400); RED CELL DISTRIBUTION WIDTH 13.5 % (10.0-14.5); WHITE BLOOD COUNT 8.9 10^3/uL (4.3-11.0)
[2019-05-11] MEDS ORDERED: ONDANSETRON 4 MG/2 ML (SDV) Z0FRAN IVP ONE (19:30)
--- NOTE | 2019-05-11 19:31 | Diagnostic Imaging Report ---
PROCEDURE: CT head wo r/o stroke. TECHNIQUE: Multiple contiguous axial images were obtained through the brain without the use of intravenous contrast. Auto Exposure Controls were utilized during the CT exam to meet ALARA standards for radiation dose reduction. INDICATION: Right weakness FINDINGS: There is prominence of the ventricles and sulci. There is some chronic microvascular ischemic disease. There is a focal ill-defined area of decreased attenuation in the left frontal lobe extending caudally into the temporal lobe suspect for developing CVA. There is no hydrocephalus. There is no midline shift. There is no mass, hemorrhage or extra-axial fluid collection. Calvarium is intact. Sinuses and mastoid air cells are clear. IMPRESSION: Ill-defined area of decreased attenuation in the left frontal lobe extending caudally in the temporal lobe suspect for developing CVA. Recommend further evaluation with MRI. Atrophy and moderate chronic microvascular ischemic disease Dictated by: Dictated on workstation # [id number]
--- NOTE | 2019-05-11 19:40 | Diagnostic Imaging Report ---
INDICATION: Stroke protocol. FINDINGS: There is cardiomegaly. The mediastinum is unremarkable. There is no pleural effusion, pneumothorax or pneumonia. IMPRESSION: Cardiomegaly. No acute cardiopulmonary abnormality.. Dictated by: Dictated on workstation # [id number]
[2019-05-11 19:42] LABS: BILIRUBIN,URINE NEGATIVE (NEGATIVE); CLARITY,URINE CLEAR; COLOR,URINE YELLOW; GLUCOSE, URINE (UA) 3+ (NEGATIVE); KETONES,URINE 2+ (NEGATIVE); LEUKOCYTE ESTERASE ,URINE NEGATIVE (NEGATIVE); NITRITE,URINE NEGATIVE (NEGATIVE); PROTEIN,URINE 3+ (NEGATIVE)
[2019-05-11 19:42] LABS: FIBRIN DEGRADATION PRODUCTS 1.42 UG/ML (0.00-0.49); PROTHROMBIN TIME PATIENT 13.7 SEC (12.2-14.7)
[2019-05-11 19:44] LABS: ALANINE AMINOTRANSFERASE 24 U/L (0-55); ALBUMIN 4.4 GM/DL (3.2-4.5); ALKALINE PHOSPHATASE 81 U/L (40-136); BILIRUBIN,TOTAL 0.7 MG/DL (0.1-1.0); BUN/CREATININE RATIO 17; CALCIUM 11.6 MG/DL (8.5-10.1); CARBON DIOXIDE 22 MMOL/L (21-32); CHLORIDE 100 MMOL/L (98-107); CREATININE SERUM 1.05 MG/DL (0.60-1.30); GFR ESTIMATED 51; GLUCOSE 266 MG/DL (70-105); POTASSIUM 4.5 MMOL/L (3.6-5.0); SODIUM 136 MMOL/L (135-145); TOTAL PROTEIN 7.6 GM/DL (6.4-8.2)
[2019-05-11 19:49] LABS: CALCIUM OXALATE CRYSTALS,UR MODERATE /LPF
[2019-05-11 19:55] LABS: BACTERIA,URINE MODERATE /HPF
[2019-05-11] MEDS ORDERED: NS 100 ML (IVPB) BAG IV ONE ×2 (20:00)
[2019-05-11] MEDS ORDERED: HOLD METFORMIN - RECEIVED CONTRAST 20 ML VIAL IV SCH ×2 (20:00)
[2019-05-11] MEDS ORDERED: LABETALOL HCL 20 MG/4 ML VIAL IV ONE ×2 (20:00→21:30)
[2019-05-11] MEDS ORDERED: IOHEXOL 350 MG/ML 100 ML (OMNIPAQUE 350) VIAL IV ONE ×2 (20:00)
--- NOTE | 2019-05-11 20:12 | ED Neurological Problem ---
General Chief Complaint: Neurological Problems Nursing Triage Note: ARRIVES TO ROOM 3 VIA EMS. PATIENT IS LETHARGIC, RAC 20 GAUGE. Nursing Sepsis Screen: No Definite Risk Source: patient, family, EMS, old records Exam Limitations: no limitations History of Present Illness Date Seen by Provider: May 11, 2019 Time Seen by Provider: 18:56 Initial Comments This right-handed 79-year-old woman presents to the emergency room with primary complaint of altered mental status. She had a colonoscopy this morning due to history of colon cancer. Family noted that she had decreased responsiveness and confusion starting about 60-90 minutes prior to arrival to the ER. Exact time of onset is unclear as patient had sedation with her colonoscopy which may have masked stroke symptoms. Patient was noted to have a fever of 101.8 for EMS. She also was noted on initial evaluation to be disoriented with right-sided neglect and decreased alertness. Stroke activation was paged and septic workup was pursued. It was noted the patient was ambulatory after returning home. She also took a tramadol after returning home. Blood sugar for EMS was in the 270s. Patient is markedly hypertensive on arrival with a blood pressure of 202/111. Allergies and Home Medications Allergies Coded Allergies: No Known Drug Allergies (Unverified , 10/29/18) Home Medications Amlodipine Besylate 5 Mg Tablet, 5 MG PO DAILY, (Reported) Aspirin 81 Mg Tablet.dr, 81 MG PO DAILY, (Reported) Atenolol 50 Mg Tablet, 100 MG PO DAILY, (Reported) TAKES 2 (50MG) TABLET Atorvastatin Calcium 20 Mg Tablet, 20 MG PO HS, (Reported) Cholecalciferol (Vitamin D3) 1,000 Unit Capsule, 1,000 UNIT PO BID, (Reported) Ferrous Sulfate 325 Mg Tablet, 325 MG PO DAILY, (Reported) Glimepiride 4 Mg Tablet, 4 MG PO DAILY, (Reported) Glimepiride 2 Mg Tablet, 2 MG PO DAILY, (Reported) Hydrochlorothiazide 25 Mg Tablet, 25 MG PO DAILY, (Reported) Letrozole 2.5 Mg Tablet, 2.5 MG PO DAILY, (Reported) Magnesium Oxide 400 Mg Capsule, 400 MG PO DAILY, (Reported) Multivitamin 1 Each Tablet, 1 TAB PO DAILY, (Reported) Olmesartan Medoxomil 20 Mg Tablet, 20 MG PO DAILY, (Reported) [place] 3 Polyunsat Fatty Acids 1,000 Mg Cap, 1,000 MG PO TID, (Reported) Sertraline HCl 50 Mg Tablet, 50 MG PO DAILY, (Reported) Sitagliptin Phosphate 100 Mg Tablet, 100 MG PO DAILY, (Reported) Sitagliptin Phosphate 100 Mg Tablet, 100 MG PO DAILY, (Reported) Tramadol HCl 50 Mg Tablet, 50 MG PO BID, (Reported) Vit A/Vit C/Vit E/Zinc/Copper 1 Each Tablet, 1 TAB PO BID, (Reported) Patient Home Medication List Home Medication List Reviewed: Yes Review of Systems Review of Systems Constitutional: no symptoms reported Eyes: No Symptoms Reported Ears, Nose, Mouth, Throat: no symptoms reported Respiratory: no symptoms reported Cardiovascular: no symptoms reported Gastrointestinal: see HPI Genitourinary: no symptoms reported : No Musculoskeletal: no symptoms reported Skin: no symptoms reported Psychiatric/Neurological: See HPI Endocrine: No Symptoms Reported Hematologic/Lymphatic: No Symptoms Reported Past Lwxinki-Mrqrqe-Jqtfel Hx Past Med/Social Hx: Reviewed Nursing Past Med/Soc Hx Patient Social History 2nd Hand Smoke Exposure: No Recent Foreign Travel: No Contact w/Someone Who Travel: No Recent Infectious Disease Expo: No Recent Hopitalizations: No Immunizations Up To Date Tetanus Booster (TDap): Unknown PED Vaccines UTD: No Date of Pneumonia Vaccine: Mar 17, 2014 Date of Influenza Vaccine: Dec 22, 2018 Seasonal Allergies Seasonal Allergies: Yes (MILD) Past Medical History Surgeries: Yes (CATARACTS, GRAVEL REMOVED FROM KNEE, D&C, LIPOMA , R BREAST LUMP, COLECTOMY) Abdominal, Tonsillectomy, Tubal Ligation Respiratory: No Cardiac: Yes High Cholesterol, Hypertension Neurological: No Reproductive Disorders: 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 Sexually Transmitted Disease: No HIV/AIDS: No Genitourinary: Yes Bladder Infection Gastrointestinal: Yes (COLON CANCER) Musculoskeletal: Yes Degenerate Disk Disease, Arthritis, Chronic Back Pain Endocrine: Yes Diabetes, Non-Insulin dep HEENT: Yes (GLASSES, DENTURES) Loss of Vision: Denies Hearing Impairment: Denies Cancer: Yes Colon Did You Recieve Any Treatments: Yes What Type of Treatment Did You: Surgical Intervention Psychosocial: Yes (SITUATIONAL ) Depression Integumentary: No Blood Disorders: No Adverse Reaction/Blood Tranf: No (N/A) Family Medical History Reviewed Nursing Family Hx Alcoholism 19 FATHER Completed stroke 19 MOTHER Dementia 19 MOTHER Diabetes mellitus 19 MOTHER G8 BROTHER FH: breast cancer G8 SISTER FH: uterine cancer 19 MOTHER Hypertension G8 BROTHER Respiratory disorder 19 FATHER Physical Exam Vital Signs Vital Signs - First Documented 05/11/19 19:00 Temp 39.2 Pulse 52 Resp 18 B/P (MAP) 202/111 (141) O2 Delivery Room Air Capillary Refill : Greater Than 3 Seconds Height, Weight, BMI Height: 5'3.00" Weight: 221lbs. 3.0oz. [id number]; 32.00 BMI Method: General Appearance: WD/WN, no apparent distress HEENT: PERRL/EOMI, normal ENT inspection, other (mucous membranes moist) Neck: normal inspection, other (no JVD) Respiratory: lungs clear, normal breath sounds, no respiratory distress Cardiovascular: regular rate, rhythm, no edema, no murmur Gastrointestinal: normal bowel sounds, non tender, soft Extremities: normal inspection, no pedal edema Neurologic/Psychiatric: other (patient has decreased level of alertness but does respond to speech. She has varying degrees of disorientation. She has not been able to answer her age but has been able to state the month and that she is in the hospital. She has difficulty following instructions. An accurate NIH was difficult to obtain due to inability to completely follow instructions. Right upper extremity seems to be weaker than the left. She does move all 4 extremities. She has a left-sided gaze preference.) Crainal Nerves: normal speech, PERRL Skin: normal color, warm/dry Stroke NIH Stroke Scale Assessment Select: Post CT Level of Consciousness: 1=Aroused by mild stimuli (1), Level of Consciousness-Questions: 0=Answers both month/age (0), LOC Commands: 1 =Performs one task (1), Gaze: Partial Gaze Palsy (1), Visual Mccray: 2=Complete hemianopia (2), Facial Movement (Facial Paresis): 1=Minor paralysis (1), Motor Function-Arms Right: 4=No movement (4), Motor Function- Arms Left: 2=Some effort/gravity (2), Motor Function-Legs Right: 4=No movement (4), Motor Function-Legs Left: 2=Some effort/gravity (2), Limb Ataxia: 2=Present in two limbs (2), Sensory: 2=Severe to total loss (2), Best Language: 2=Severe aphasia (2), Dysarthria: 1=Mild to moderate loss (1), Extinction & Inattention: 2=ProfoundHemiInattention (2), Total: 27 Focused Exam Lactate Level 05/11/19 19:10: Lactic Acid Level 1.47 Lactic Acid Level Laboratory Tests Test 05/11/19 19:10 Lactic Acid Level 1.47 MMOL/L (0.50-2.00) Progress/Results/Core Measures Results/Orders Lab Results Laboratory Tests Test 05/11/19 19:10 05/11/19 19:34 05/11/19 19:52 Range/Units White Blood Count 8.9 4.3-11.0 10^3/uL Red Blood Count 3.91 L 4.35-5.85 10^6/uL Hemoglobin 12.2 11.5-16.0 G/DL Hematocrit 37 35-52 % Mean Corpuscular Volume 94 80-99 FL Mean Corpuscular Hemoglobin 31 25-34 PG Mean Corpuscular Hemoglobin Concent 33 32-36 G/DL Red Cell Distribution Width 13.5 10.0-14.5 % Platelet Count 257 130-400 10^3/uL Mean Platelet Volume 9.5 7.4-10.4 FL Neutrophils (%) (Auto) 87 H 42-75 % Lymphocytes (%) (Auto) 7 L 12-44 % Monocytes (%) (Auto) 5 0-12 % Eosinophils (%) (Auto) 0 0-10 % Basophils (%) (Auto) 0 0-10 % Neutrophils # (Auto) 7.8 1.8-7.8 X 10^3 Lymphocytes # (Auto) 0.7 L 1.0-4.0 X 10^3 Monocytes # (Auto) 0.5 0.0-1.0 X 10^3 Eosinophils # (Auto) 0.0 0.0-0.3 10^3/uL Basophils # (Auto) 0.0 0.0-0.1 10^3/uL Prothrombin Time 13.7 12.2-14.7 SEC INR Comment 1.0 0.8-1.4 Activated Partial Thromboplast Time 30 24-35 SEC D-Dimer 1.42 H 0.00-0.49 UG/ML Sodium Level 136 135-145 MMOL/L Potassium Level 4.5 3.6-5.0 MMOL/L Chloride Level 100 98-107 MMOL/L Carbon Dioxide Level 22 21-32 MMOL/L Anion Gap 14 5-14 MMOL/L Blood Urea Nitrogen 18 7-18 MG/DL Creatinine 1.05 0.60-1.30 MG/DL Estimat Glomerular Filtration Rate 51 BUN/Creatinine Ratio 17 Glucose Level 266 H 70-105 MG/DL Lactic Acid Level 1.47 0.50-2.00 MMOL/L Calcium Level 11.6 H 8.5-10.1 MG/DL Corrected Calcium 11.3 H 8.5-10.1 MG/DL Total Bilirubin 0.7 0.1-1.0 MG/DL Aspartate Amino Transf (AST/SGOT) 23 5-34 U/L Alanine Aminotransferase (ALT/SGPT) 24 0-55 U/L Alkaline Phosphatase 81 40-136 U/L Troponin I < 0.028 <0.028 NG/ML C-Reactive Protein High Sensitivity 0.88 H 0.00-0.50 MG/DL Total Protein 7.6 6.4-8.2 GM/DL Albumin 4.4 3.2-4.5 GM/DL Urine Color YELLOW Urine Clarity CLEAR Urine pH 6.0 5-9 Urine Specific [place] >=1.030 1.016-1.022 Urine Protein 3+ H NEGATIVE Urine Glucose (UA) 3+ H NEGATIVE Urine Ketones 2+ H NEGATIVE Urine Nitrite NEGATIVE NEGATIVE Urine Bilirubin NEGATIVE NEGATIVE Urine Urobilinogen 0.2 < = 1.0 MG/DL Urine Leukocyte Esterase NEGATIVE NEGATIVE Urine RBC (Auto) TRACE-I NEGATIVE Urine RBC NONE /HPF Urine WBC NONE /HPF Urine Squamous Epithelial Cells 5-10 /HPF Urine Crystals PRESENT H /LPF Urine Calcium Oxalate Crystals MODERATE H /LPF Urine Bacteria MODERATE H /HPF Urine Casts NONE /LPF Urine Mucus NEGATIVE /LPF Urine Culture Indicated NO Glucometer 250 H 70-110 MG/DL Micro Results Microbiology 05/11/19 Influenza Types A,B Antigen (YEN) - Final, Complete My Orders Orders - NADIR LIM MD Cbc With Automated Diff (05/11/19 19:05) Protime With Inr (05/11/19 19:05) Partial Thromboplastin Time (05/11/19 19:05) Comprehensive Metabolic Panel (05/11/19 19:05) Fibrin Degradation Products (05/11/19 19:05) Troponin I (05/11/19 19:05) Ua Culture If Indicated (05/11/19 19:05) Chest 1 View, Ap/Pa Only (05/11/19 19:05) Catheter(Urinary) Insert & Ass 03,15 (05/11/19 19:05) Ekg Tracing (05/11/19 19:05) Nothing By Mouth (05/12/19 Breakfast) Accucheck Stat ONCE (05/11/19 19:05) Ed Iv/Invasive Line Start (05/11/19 19:05) Ed Iv/Invasive Line Start (05/11/19 19:05) Vital Signs Stroke Patient Q15M (05/11/19 19:05) Ct Head Wo-R/O Stroke (05/11/19 19:05) O2 (05/11/19 19:05) Intake & Output 06,14,22 (05/11/19 19:05) Monitor-Rhythm Ecg Trace Only (05/11/19 19:05) Dysphagia Screening Tool (05/11/19 19:05) Post Thrombolytic Adminstratio (05/11/19 19:05) Lipid Panel (05/12/19 06:00) Acetaminophen Suppository (Tylenol Suppo (05/11/19 19:15) Influenza A And B Antigens (05/11/19 19:05) Blood Culture (05/11/19 19:05) Sputum Culture (05/11/19 19:05) Urine Culture (05/11/19 19:05) Ed Iv/Invasive Line Start (05/11/19 19:05) Vital Signs Adult Sepsis Patie Q15M (05/11/19 19:05) O2 (05/11/19 19:05) Remove Rings In Anticipation O (05/11/19 19:05) Lactic Acid Analyzer (05/11/19 19:05) Hs C Reactive Protein (05/11/19 19:05) Ondansetron Injection (Zofran Injectio (05/11/19 19:30) Ct Angio Head/Neck (05/11/19 19:48) Ct Head Perfusion W/ Contrast (05/11/19 19:48) Labetalol Injection (Normodyne Injection (05/11/19 20:00) Iohexol Injection (Omnipaque 350 Mg/Ml 1 (05/11/19 20:00) Received Contrast (Hold Metformin- Contr (05/11/19 20:00) Ns (Ivpb) (Sodium Chloride 0.9% Ivpb Bag (05/11/19 20:00) Iohexol Injection (Omnipaque 350 Mg/Ml 1 (05/11/19 20:00) Received Contrast (Hold Metformin- Contr (05/11/19 20:00) Ns (Ivpb) (Sodium Chloride 0.9% Ivpb Bag (05/11/19 20:00) Piperacillin Sodium/Tazobactam (Zosyn Vi (05/11/19 20:15) Labetalol Injection (Normodyne Injection (05/11/19 21:30) Medications Given in ED Current Medications Medications Dose Ordered Sig/Byron Route Start Time Stop Time Status Last Admin Dose Admin Acetaminophen 650 mg ONCE ONCE RI 05/11/19 19:15 05/11/19 19:16 DC 05/11/19 20:07 650 MG Iohexol 100 ml ONCE ONCE IV 05/11/19 20:00 05/11/19 20:01 DC 05/11/19 21:13 75 ML Labetalol HCl 5 mg ONCE ONCE IV 05/11/19 20:00 05/11/19 20:01 DC 05/11/19 20:07 5 MG Ondansetron HCl 4 mg ONCE ONCE IVP 05/11/19 19:30 05/11/19 19:31 DC 05/11/19 20:05 4 MG Piperacillin Sod/ Tazobactam Sod 4.5 gm/Sodium Chloride 100 ml @ 200 mls/hr ONCE ONCE IV 05/11/19 20:15 05/11/19 20:44 DC 05/11/19 20:24 200 MLS/HR Sodium Chloride 100 ml ONCE ONCE IV 05/11/19 20:00 05/11/19 20:01 DC 05/11/19 21:14 40 ML Vital Signs/I&O 05/11/19 05/11/19 19:00 20:07 Temp 39.2 39.2 Pulse 52 Resp 18 B/P (MAP) 202/111 (141) O2 Delivery Room Air Blood Pressure Mean: 141 Progress Progress Note #1: Time: 20:06 Progress Note Patient had a fairly complex presentation given the colonoscopy under sedation today, fever for EMS, and the symptoms of stroke with some right-sided neglect on initial evaluation. Sepsis workup was pursued along with a stroke activation. Patient was found to have evidence of developing stroke in the left frontal and temporal lobes. I discussed the case with Dr. Hawley, stroke neurologist at [facility]. She recommends CT angiogram and CT perfusion scan for further assessment and prompt transfer to [facility]. I discussed this with family and they are agreeable to transfer regardless of results of CT angiogram. [facility] has been notified. Patient was febrile for EMS with a temperature of 101.8. A dose of Tylenol was given by suppository one point catheter was placed. Patient is also hypertensive. Dr. Hawley also recommended a target blood pressure of 180s over 90s. A dose of labetalol 5 mg is being given for initial blood pressure management. We will see how she responds. Since patient is febrile with a procedure performed earlier today, we will also give a dose of Zosyn for empiric antibiotic therapy. Patient was not a TPA candidate due to unclear last known well time as patient was under the influence of sedation tomas ier in the day and because of presence of visible stroke changes on the CT scan. Progress Note #2: Time: 20:53 Progress Note Patient is presently in the radiology department for CT angiogram. After trying multiple transport companies we have been unable to secure air transport due to weather. We will use ground transportation instead. NIH stroke score on returning from CT was 27. Progress Note #3: Time: 21:59 Progress Note Patient departed our facility with [facility] at 21:35. CT angiogram report was available after patient departure. [facility] was updated with status. Unfortunately, there was no significant penumbra on the CT perfusion scan. Patient will likely not be a candidate for IR therapies will be assessed by the stroke team on arrival at [facility]. Due to patient's complicated and profound of presentation, she deserves evaluation at a tertiary care facility with a comprehensive stroke program. Patient's blood pressure was controlled well with labetalol 5 mg IV. An additional dose was sent with EMS to give blood pressure escalates again. Initial ECG Impression Date: May 11, 2019 Initial ECG Impression Time: 19:28 Initial ECG Rate: 60 Initial ECG Rhythm: Normal Sinus Initial ECG Intervals: Normal Initial ECG Impression: Normal Comment Normal sinus rhythm with no ST elevation or depression. No abnormal axis deviation. Slightly long RI interval at 228. Diagnostic Imaging Diagonstic Imaging: CT Plain Films/CT/US/NM/MRI: head Comments CT head viewed by me and report reviewed. See report below: NAME: EDI TUCKER [facility] REC#: [id number] PT STATUS: REG ER : 1940 PHYSICIAN: NADIR LIM MD ADMIT DATE: 05/11/19/ER Signed Date of Exam:05/11/19 CT HEAD WO-R/O STROKE PROCEDURE: CT head wo r/o stroke. TECHNIQUE: Multiple contiguous axial images were obtained through the brain without the use of intravenous contrast. Auto Exposure Controls were utilized during the CT exam to meet ALARA standards for radiation dose reduction. INDICATION: Right weakness FINDINGS: There is prominence of the ventricles and sulci. There is some chronic microvascular ischemic disease. There is a focal ill-defined area of decreased attenuation in the left frontal lobe extending caudally into the temporal lobe suspect for developing CVA. There is no hydrocephalus. There is no midline shift. There is no mass, hemorrhage or extra-axial fluid collection. Calvarium is intact. Sinuses and mastoid air cells are clear. IMPRESSION: Ill-defined area of decreased attenuation in the left frontal lobe extending caudally in the temporal lobe suspect for developing CVA. Recommend further evaluation with MRI. Atrophy and moderate chronic microvascular ischemic disease Dictated by: Dictated on workstation # [id number] Dict: 05/11/191927 Trans: 05/11/191937 [facility] [id number] Interpreted by: PALLAVI GROSS MD Electronically signed by: PALLAVI GROSS MD 05/11/191937 Diagonstic Imaging: Xray Plain Films/CT/US/NM/MRI: chest Comments NAME: EDI TUCKER [facility] REC#: [id number] PT STATUS: REG ER : 1940 PHYSICIAN: NADIR LIM MD ADMIT DATE: 05/11/19/ER Draft Date of Exam:05/11/19 CHEST 1 VIEW, AP/PA ONLY INDICATION: Stroke protocol. FINDINGS: There is cardiomegaly. The mediastinum is unremarkable. There is no pleural effusion, pneumothorax or pneumonia. IMPRESSION: Cardiomegaly. No acute cardiopulmonary abnormality.. Dictated on workstation # [id number] Dict: 05/11/191933 Trans: 05/11/191938 [id number] Interpreted by: PALLAVI GROSS MD Diagonstic Imaging: CT Plain Films/CT/US/NM/MRI: other (angiogram head and neck) Comments CT angiogram head and neck viewed by me and report reviewed. See report below: NAME: EDI TUCKER [facility] REC#: [id number] PT STATUS: REG ER : 1940 PHYSICIAN: NADIR LIM MD ADMIT DATE: 05/11/19/ER Signed Date of Exam:05/11/19 CT ANGIO HEAD/NECK PROCEDURE: CT angiography of the head and CT angiography of the neck with and without contrast. TECHNIQUE: Contiguous noncontrast images were obtained from the skull base through the vertex. After intravenous contrast administration, helical CT angiography of the neck was performed. Source data was reformatted into 3D MIP projections. Delayed post contrast acquisition was also obtained. Auto Exposure Controls were utilized during the CT exam to meet ALARA standards for radiation dose reduction. INDICATION: CVA. FINDINGS: Note is again made of an ill-defined area of decreased attenuation in the left frontal and temporal lobes. There is no no hydrocephalus. There is no midline shift. There is no mass or hemorrhage. There is no extra-axial fluid collection. There are non-filling M3 branches in the region of the area of decreased attenuation compatible with acute CVA. The truncation is just at the level of the distal M2 branch on the left. There are no other proximal intracranial branch occlusions, vascular malformations or aneurysms. The lung apices are clear. There is normal branching pattern of the thoracic aorta. There are codominant vertebral arteries. Examination is technically limited due to motion. There is no obvious dissection, stenosis, or occlusion in either common carotid artery, internal carotid artery or vertebral artery. There is plaque about the carotid bifurcations bilaterally. IMPRESSION: Truncation at the distal M2 branch on the left compatible with acute CVA. This is immediately at the periphery of the area of decreased attenuation left frontal temporal lobes as described. No other large vessel occlusions intracranially. Grossly unremarkable CTA neck apart from some plaque near the carotid bifurcations. Exam is, however, limited due to motion. Dictated by: Dictated on workstation # [id number] Dict: 05/11/192113 Trans: 05/11/192128 [facility] [id number] Interpreted by: PALLAVI GROSS MD Electronically signed by: PALLAVI GROSS MD 05/11/192128 Diagonstic Imaging: CT Plain Films/CT/US/NM/MRI: head (perfusion scan) Comments CT perfusion scan showed no significant penumbra. Departure Impression Primary Impression: CVA (cerebral vascular accident) Qualified Codes: I63.512 - Cerebral infarction due to unspecified occlusion or stenosis of left middle cerebral artery Additional Impressions: Aphasia Right sided weakness Disposition: XF SHT-TRM HOSP Condition: Stable Transfer Transfer Reason: Exceeds level of care Time Spoke to Accepting Phy: 19:39 Transfer Progress Notes Patient accepted by Dr. Hawley at [facility]. Flight transport not available due to weather. Transfer Time: 21:35 Transfer Facility: [facility] Method of Transfer: EMS Departure-Patient Inst. Referrals: RAYO SANDHU DO (PCP/Family) Primary Care Physician NADIR LIM MD May 11, 2019 20:11
[2019-05-11] MEDS ORDERED: PIPERACILLIN SODIUM/TAZOBACTAM 4.5 GM in NS (IVPB) 100 ML IV ONE (20:15)
--- NOTE | 2019-05-11 20:30 | NUR ---
FAMILY TO ROOM, UPDATED ON PATIENT TRANSFER VIA GROUND D/T WEATHER
--- NOTE | 2019-05-11 21:24 | Diagnostic Imaging Report ---
PROCEDURE: CT angiography of the head and CT angiography of the neck with and without contrast. TECHNIQUE: Contiguous noncontrast images were obtained from the skull base through the vertex. After intravenous contrast administration, helical CT angiography of the neck was performed. Source data was reformatted into 3D MIP projections. Delayed post contrast acquisition was also obtained. Auto Exposure Controls were utilized during the CT exam to meet ALARA standards for radiation dose reduction. INDICATION: CVA. FINDINGS: Note is again made of an ill-defined area of decreased attenuation in the left frontal and temporal lobes. There is no no hydrocephalus. There is no midline shift. There is no mass or hemorrhage. There is no extra-axial fluid collection. There are non-filling M3 branches in the region of the area of decreased attenuation compatible with acute CVA. The truncation is just at the level of the distal M2 branch on the left. There are no other proximal intracranial branch occlusions, vascular malformations or aneurysms. The lung apices are clear. There is normal branching pattern of the thoracic aorta. There are codominant vertebral arteries. Examination is technically limited due to motion. There is no obvious dissection, stenosis, or occlusion in either common carotid artery, internal carotid artery or vertebral artery. There is plaque about the carotid bifurcations bilaterally. IMPRESSION: Truncation at the distal M2 branch on the left compatible with acute CVA. This is immediately at the periphery of the area of decreased attenuation left frontal temporal lobes as described. No other large vessel occlusions intracranially. Grossly unremarkable CTA neck apart from some plaque near the carotid bifurcations. Exam is, however, limited due to motion. Dictated by: Dictated on workstation # [id number]
--- NOTE | 2019-05-11 21:30 | NUR ---
LEBATALOL 5MG GIVEN TO EMS FOR POSSIBLE ENROUTE ADMINISTRATION FOR THIS PATIENT PER DR LUNDBERG IF BLOOD PRESSURE BEGINS TO ELEVATE ABOVE GIVEN PERAMETERS.
[2019-05-11 21:35] VITALS: BP 184/86
== END 2019-05-11 21:35 | disposition short-term general hospital (02) ==
LOC: EDUNIT# 18:55 → ER 18:56
DX: I63.9 Cerebral infarction, unspecified (principal); G81.90 Hemiplegia, unspecified affecting unspecified side; R47.01 Aphasia; R29.727 NIHSS score 27; I10 Essential (primary) hypertension; E78.00 Pure hypercholesterolemia, unspecified; E11.9 Type 2 diabetes mellitus without complications; F32.9 Major depressive disorder, single episode, unspecified; Z85.038 Personal history of other malignant neoplasm of large intestine; Z79.82 Long term (current) use of aspirin; Z79.84 Long term (current) use of oral hypoglycemic drugs; Z98.51 Tubal ligation status; Z80.3 Family history of malignant neoplasm of breast; Z80.8 Family history of malignant neoplasm of other organs or systems; Z82.49 Family history of ischemic heart disease and other diseases of the circulatory system; Z86.018 Personal history of other benign neoplasm
CPT/HCPCS: 0042T; 36415; 51702; 70450; 70496; 70498; 71045; 80053; 81000; 82962; 83605; 84484; 85025; 85379; 85610; 85730; 86141; 87040; 87088; 87804; 93005; 93041; 96365; 96375; 96376

== ENCOUNTER 2019-09-15 15:41 | Outpatient (RCR) | payer MEDICARE, BC ==
[2019-09-15 15:59] LABS: BASOPHILS % (AUTO) 0 % (0-10); EOSINOPHILS # (AUTO) 0.1 10^3/uL (0.0-0.3); EOSINOPHILS % (AUTO) 2 % (0-10); HEMATOCRIT 30 % (35-52); LYMPHOCYTES # (AUTO) 0.8 X 10^3 (1.0-4.0); LYMPHOCYTES % (AUTO) 16 % (12-44); MEAN CORPUSCULAR HEMOGLOBIN 31 PG (25-34); MEAN CORPUSCULAR HGB CONC 33 G/DL (32-36); MEAN CORPUSCULAR VOLUME 94 FL (80-99); MEAN PLATELET VOLUME 9.7 FL (7.4-10.4); MONOCYTES # (AUTO) 0.4 X 10^3 (0.0-1.0); MONOCYTES % (AUTO) 8 % (0-12); NEUTROPHILS # (AUTO) 3.6 X 10^3 (1.8-7.8); NEUTROPHILS % (AUTO) 73 % (42-75); PLATELET COUNT 265 10^3/uL (130-400); WHITE BLOOD COUNT 4.9 10^3/uL (4.3-11.0)
[2019-09-15 16:20] LABS: ALBUMIN 4.1 GM/DL (3.2-4.5); BILIRUBIN,TOTAL 0.4 MG/DL (0.1-1.0); CALCIUM 11.1 MG/DL (8.5-10.1); CREATININE SERUM 1.46 MG/DL (0.60-1.30); POTASSIUM 4.8 MMOL/L (3.6-5.0)
[2019-10-26] MEDS ORDERED: PANT40TA52 PO (15:46)
[2019-10-26] MEDS ORDERED: CHOL20003 PO (15:46)
[2019-10-26] MEDS ORDERED: FERR-84 PO (15:46)
[2019-10-26] MEDS ORDERED: OLME40TA18 PO (15:46)
[2019-10-26] MEDS ORDERED: CARV12.53 PO (15:46)
[2019-10-26] MEDS ORDERED: SERT25TA5 PO (15:46)
[2019-10-26] MEDS ORDERED: FURO40TA4 PO (15:46)
[2019-10-26] MEDS ORDERED: LEVE750T5 PO (15:46)
[2019-10-26] MEDS ORDERED: ASPI-1238 PO (15:46)
[2019-10-26] MEDS ORDERED: ATOR40TA70 PO (15:46)
[2019-10-26] MEDS ORDERED: ANTI1CAP2 PO (15:46)
[2019-10-26] MEDS ORDERED: ACET-2650 PO (15:47)
[2019-11-08] MEDS ORDERED: TOLTA4 PO (20:37)
== END 2019-12-13 08:17 | disposition home or self-care (01) ==
LOC: ONC 15:41
PROVIDERS: ATTEND Internal Medicine Hematology & Oncology
DX: C50.412 Malignant neoplasm of upper-outer quadrant of left female breast (principal); C18.2 Malignant neoplasm of ascending colon; E11.22 Type 2 diabetes mellitus with diabetic chronic kidney disease; I12.9 Hypertensive chronic kidney disease with stage 1 through stage 4 chronic kidney disease, or unspecified chronic kidney disease; E78.00 Pure hypercholesterolemia, unspecified; M17.0 Bilateral primary osteoarthritis of knee; M47.9 Spondylosis, unspecified; N18.3 Chronic kidney disease, stage 3 (moderate); D63.0 Anemia in neoplastic disease; D63.1 Anemia in chronic kidney disease; Z92.3 Personal history of irradiation; Z90.49 Acquired absence of other specified parts of digestive tract; Z80.0 Family history of malignant neoplasm of digestive organs; Z79.84 Long term (current) use of oral hypoglycemic drugs; Z79.899 Other long term (current) drug therapy
CPT/HCPCS: 80053; G0463; 85025; 99213

== ENCOUNTER → 2019-09-15 | Outpatient (CLI) | payer MEDICARE, BC ==
[~2019-09-15] MED LIST changes: -HYDR-3062 PO
[2019-09-15 17:44] LABS: ABSOLUTE RETIC # 54 10e9/L (24-90); BASOPHILS % (AUTO) 0 % (0-10); EOSINOPHILS # (AUTO) 0.1 10^3/uL (0.0-0.3); EOSINOPHILS % (AUTO) 2 % (0-10); HEMATOCRIT 30 % (35-52); LYMPHOCYTES # (AUTO) 0.7 X 10^3 (1.0-4.0); LYMPHOCYTES % (AUTO) 15 % (12-44); MEAN CORPUSCULAR HEMOGLOBIN 31 PG (25-34); MEAN CORPUSCULAR HGB CONC 33 G/DL (32-36); MEAN CORPUSCULAR VOLUME 94 FL (80-99); MEAN PLATELET VOLUME 10.4 FL (7.4-10.4); MONOCYTES # (AUTO) 0.4 X 10^3 (0.0-1.0); MONOCYTES % (AUTO) 9 % (0-12); NEUTROPHILS # (AUTO) 3.7 X 10^3 (1.8-7.8); NEUTROPHILS % (AUTO) 74 % (42-75); PLATELET COUNT 266 10^3/uL (130-400); RED CELL DISTRIBUTION WIDTH 13.7 % (10.0-14.5); RETICULOCYTE % 1.66 % (0.50-2.40)
[2019-09-15 17:59] LABS: ANISOCYTOSIS SLIGHT; BAND NEUTROPHILS 0 %; BASOPHILS % (MANUAL) 0 %; ELLIPT/OVALOCYTES SLIGHT; EOSINOPHILS % (MANUAL) 2 %; HYPOCHROMASIA SLIGHT; LYMPHOCYTES % (MANUAL) 11 %; MONOCYTES % (MANUAL) 10 %; NEUTROPHILS % (MANUAL) 77 %; POIKILOCYTOSIS SLIGHT
== END ==
LOC: LAB 16:35
PROVIDERS: ATTEND Family Medicine
DX: D64.9 Anemia, unspecified (principal)
CPT/HCPCS: 36415; 82607; 82746; 83540; 83550; 85007; 85027; 85045

== ENCOUNTER → 2019-09-24 | Outpatient (CLI) | payer MEDICARE, BC ==
--- NOTE | 2019-09-24 13:45 | Diagnostic Imaging Report ---
INDICATION: Left breast carcinoma, status post lumpectomy. CORRELATION is made with prior mammograms dating back to 2017. 2-D and 3-D bilateral diagnostic mammography was performed with CAD. Post lumpectomy changes in the left breast are noted. No discrete mass is seen. There are benign calcifications in both breasts. No malignant appearing microcalcifications are identified. Axillae are unremarkable. IMPRESSION: BI-RADS Category 2. Stable post-therapeutic changes, left breast. There are no mammographic features suspicious for malignancy. Dictated by: Dictated on workstation # [id number]
== END ==
LOC: RAD 12:26
PROVIDERS: ATTEND Nurse Practitioner Adult Health
DX: Z85.3 Personal history of malignant neoplasm of breast (principal); Z90.12 Acquired absence of left breast and nipple
CPT/HCPCS: 77066; G0279; 77062

== ENCOUNTER 2019-10-25 19:24 | Inpatient (IN) | payer MEDICARE, BC ==
[~2019-10-25] VITALS: Ht 160 cm; Wt 90.7 kg
[2019-10-25 21:07] LABS: BASOPHILS % (AUTO) 0 % (0-10); EOSINOPHILS # (AUTO) 0.2 10^3/uL (0.0-0.3); EOSINOPHILS % (AUTO) 1 % (0-10); HEMATOCRIT 34 % (35-52); HEMOGLOBIN 11.6 G/DL (11.5-16.0); LYMPHOCYTES # (AUTO) 1.4 X 10^3 (1.0-4.0); LYMPHOCYTES % (AUTO) 12 % (12-44); MEAN CORPUSCULAR HEMOGLOBIN 32 PG (25-34); MEAN CORPUSCULAR HGB CONC 34 G/DL (32-36); MEAN CORPUSCULAR VOLUME 92 FL (80-99); MEAN PLATELET VOLUME 10.1 FL (7.4-10.4); MONOCYTES # (AUTO) 0.9 X 10^3 (0.0-1.0); MONOCYTES % (AUTO) 8 % (0-12); NEUTROPHILS # (AUTO) 8.8 X 10^3 (1.8-7.8); NEUTROPHILS % (AUTO) 78 % (42-75); PLATELET COUNT 308 10^3/uL (130-400); RED CELL DISTRIBUTION WIDTH 13.2 % (10.0-14.5); WHITE BLOOD COUNT 11.3 10^3/uL (4.3-11.0)
[2019-10-25 21:17] LABS: ALBUMIN 4.3 GM/DL (3.2-4.5); POTASSIUM 4.7 MMOL/L (3.6-5.0)
[2019-10-25 21:19] LABS: TOTAL PROTEIN 7.7 GM/DL (6.4-8.2)
[2019-10-25 21:21] LABS: BILIRUBIN,TOTAL 0.6 MG/DL (0.1-1.0)
[2019-10-25 21:23] LABS: CREATININE SERUM 2.78 MG/DL (0.60-1.30)
[2019-10-25 21:25] LABS: MAGNESIUM 1.6 MG/DL (1.6-2.4)
[2019-10-25 21:46] LABS: TSH (THYROID ANALYZER) 5.1 UIU/ML (0.35-4.94)
--- NOTE | 2019-10-25 21:51 | Diagnostic Imaging Report ---
INDICATION: Abdominal pain COMPARISON: None. FINDINGS: 2 views of the abdomen demonstrate mild constipation without obstruction or ileus. There is no free air. Osseous structures are age-appropriate. IMPRESSION: Mild constipation. Dictated by: Dictated on workstation # [id number]
--- NOTE | 2019-10-25 21:59 | ED General ---
General Chief Complaint: General Problems/Pain Stated Complaint: LOSS OF APPETITE Nursing Triage Note: pt states she hasnt been able to eat for about a week. states she has been constipated and reports lower abd pain Nursing Sepsis Screen: No Definite Risk Source of Information: Patient Exam Limitations: No Limitations (VITA WATKINS,MED STUDENT) History of Present Illness Date Seen by Provider: Oct 25, 2019 Time Seen by Provider: 20:45 Initial Comments This 79 year old female presents to the ER complaining of stomach pain and decreased appetite. She states that her belly hurts and feels like she needs to use the bathroom. She states she has not had a bowel movement in a week and has not had any food for a few days. She has nausea but no vomiting. She denies fever, chills, and pain with urination but admits to increased frequency. She states that she had colon cancer in May of 2018 which was resected. She states she has also been feeling confused and forgetful. Timing/Duration: 1 Week Associated Systoms: Loss of Appetite, Malaise, Nausea/Vomiting (VITA WATKINS,MED STUDENT) Allergies and Home Medications Allergies Coded Allergies: No Known Drug Allergies (Unverified , 10/29/18) Home Medications Acetaminophen 650 Mg Tablet.er, 650 MG PO Q8H PRN for PAIN-MILD (1-4), (Reported) Antiox#10/Om3/Dha/Epa/Lut/Zeax 1 Each Capsule, 1 EACH PO BID, (Reported) Aspirin 81 Mg Tablet.dr, 81 MG PO DAILY, (Reported) Atorvastatin Calcium 40 Mg Tablet, 40 MG PO DAILY, (Reported) Carvedilol 12.5 Mg Tablet, 12.5 MG PO BID, (Reported) Cholecalciferol (Vitamin D3) 50 Mcg Capsule, 50 MCG PO DAILY, (Reported) Ferrous Sulfate 325 Mg Tablet, 325 MG PO DAILY, (Reported) Ferrous Sulfate 325 Mg Tablet, 650 MG PO HS, (Reported) TAKES 2 (325MG) TABS Furosemide 40 Mg Tablet, 40 MG PO DAILY, (Reported) Glimepiride 2 Mg Tablet, 2 MG PO DAILY, (Reported) Hydrochlorothiazide 25 Mg Tablet, 25 MG PO DAILY, (Reported) Letrozole 2.5 Mg Tablet, 2.5 MG PO DAILY, (Reported) Levetiracetam 750 Mg Tablet, 750 MG PO BID, (Reported) Olmesartan Medoxomil 40 Mg Tablet, 40 MG PO DAILY, (Reported) [place] 3 Polyunsat Fatty Acids 1,000 Mg Cap, 1,000 MG PO BID, (Reported) Pantoprazole Sodium 40 Mg Tablet.dr, 40 MG PO DAILY, (Reported) Sertraline HCl 25 Mg Tablet, 25 MG PO DAILY, (Reported) Sitagliptin Phosphate 100 Mg Tablet, 100 MG PO DAILY, (Reported) Patient Home Medication List Home Medication List Reviewed: Yes (NADIR LIM MD) Review of Systems Review of Systems Constitutional: malaise EENTM: no symptoms reported Respiratory: no symptoms reported Cardiovascular: no symptoms reported Gastrointestinal: see HPI Genitourinary: see HPI Musculoskeletal: no symptoms reported Skin: no symptoms reported Psychiatric/Neurological: No Symptoms Reported Hematologic/Lymphatic: No Symptoms Reported Immunological/Allergic: no symptoms reported (VITA WATKINS MED STUDENT) Past Hhchdhw-Rxhtqg-Kgmfzn Hx Patient Social History Alcohol Use: Denies Use Recreational Drug Use: No Smoking Status: Never a Smoker 2nd Hand Smoke Exposure: No Recent Foreign Travel: No Contact w/Someone Who Travel: No Recent Infectious Disease Expo: No Recent Hopitalizations: No Physical Abuse: No Sexual Abuse: No Mistreated: No Fear: No (VITA WATKINS MED STUDENT) Immunizations Up To Date Tetanus Booster (TDap): Unknown PED Vaccines UTD: Yes Date of Pneumonia Vaccine: Mar 17, 2014 Date of Influenza Vaccine: Dec 22, 2018 (VITA WATKINS MED STUDENT) Seasonal Allergies Seasonal Allergies: Yes (MILD) (VITA WATKINS MED STUDENT) Past Medical History Surgeries: Yes (CATARACTS, GRAVEL REMOVED FROM KNEE, D&C, LIPOMA , R BREAST LUMP, COLECTOMY) Abdominal, Tonsillectomy, Tubal Ligation Respiratory: No Cardiac: Yes High Cholesterol, Hypertension Neurological: No Reproductive Disorders: No ACID CLEANER History: Tubal Ligation Sexually Transmitted Disease: No HIV/AIDS: No Genitourinary: Yes Bladder Infection Gastrointestinal: Yes (COLON CANCER) Musculoskeletal: Yes Degenerate Disk Disease, Arthritis, Chronic Back Pain Endocrine: Yes Diabetes, Non-Insulin dep HEENT: Yes (GLASSES, DENTURES) Loss of Vision: Denies Hearing Impairment: Denies Cancer: Yes Colon Did You Recieve Any Treatments: Yes What Type of Treatment Did You: Surgical Intervention Psychosocial: Yes (SITUATIONAL ) Depression Integumentary: No Blood Disorders: No Adverse Reaction/Blood Tranf: No (N/A) (VITA WATKINS MED STUDENT) Family Medical History Alcoholism 19 FATHER Completed stroke 19 MOTHER Dementia 19 MOTHER Diabetes mellitus 19 MOTHER G8 BROTHER FH: breast cancer G8 SISTER FH: uterine cancer 19 MOTHER Hypertension G8 BROTHER Respiratory disorder 19 FATHER Physical Exam Vital Signs Vital Signs - First Documented 10/25/19 20:50 Temp 36.5 Pulse 45 Resp 18 B/P (MAP) 103/76 (85) Pulse Ox 99 O2 Delivery Room Air (NADIR LIM MD) Vital Signs Capillary Refill : Less Than 3 Seconds (VITA WATKINS MED STUDENT) Height, Weight, BMI Height: 5'3.00" Weight: 221lbs. 3.0oz. [id number]; 33.00 BMI Method: General Appearance: No Apparent Distress, WD/WN, Chronically ill HEENT: PERRL/EOMI Respiratory: Lungs Clear, No Accessory Muscle Use, No Respiratory Distress Cardiovascular: No Murmur, Bradycardia Gastrointestinal: Normal Bowel Sounds, Non Tender, Soft, Mass (RLQ) Back: CVA Tenderness (R) Extremity: Normal Capillary Refill Neurologic/Psychiatric: Alert, No Motor/Sensory Deficits, Normal Mood/Affect Skin: Normal Color, Warm/Dry (VITA WATKINS MED STUDENT) Progress/Results/Core Measures Suspected Sepsis Recent Fever Within 48 Hours: No Infection Criteria Present: None New/Unexplained Altered Menta: No Sepsis Screen: No Definite Risk SIRS Temperature: Pulse: 45 Respiratory Rate: 18 Laboratory Tests 10/25/19 21:00: White Blood Count 11.3H Blood Pressure 103 /76 Mean: 85 Laboratory Tests 10/25/19 21:00: Creatinine 2.78H, Platelet Count 308, Total Bilirubin 0.6 (VITA WATKINS MED STUDENT) Results/Orders Lab Results Laboratory Tests Test 10/26/19 20:44 10/27/19 05:00 10/27/19 12:11 10/27/19 12:36 Range/Units Glucometer 264 H 258 H 258 H 70-110 MG/DL White Blood Count 5.7 4.3-11.0 10^3/uL Red Blood Count 3.12 L 4.35-5.85 10^6/uL Hemoglobin 9.8 L 11.5-16.0 G/DL Hematocrit 30 L 35-52 % Mean Corpuscular Volume 95 80-99 FL Mean Corpuscular Hemoglobin 31 25-34 PG Mean Corpuscular Hemoglobin Concent 33 32-36 G/DL Red Cell Distribution Width 13.2 10.0-14.5 % Platelet Count 213 130-400 10^3/uL Mean Platelet Volume 9.9 7.4-10.4 FL Sodium Level 137 135-145 MMOL/L Potassium Level 5.0 3.6-5.0 MMOL/L Chloride Level 107 98-107 MMOL/L Carbon Dioxide Level 19 L 21-32 MMOL/L Anion Gap 11 5-14 MMOL/L Blood Urea Nitrogen 68 H 7-18 MG/DL Creatinine 1.90 H 0.60-1.30 MG/DL Estimat Glomerular Filtration Rate 26 BUN/Creatinine Ratio 36 Glucose Level 287 H 70-105 MG/DL Calcium Level 10.7 H 8.5-10.1 MG/DL Test 10/27/19 15:35 10/27/19 20:15 10/28/19 05:21 10/28/19 05:22 Range/Units Glucometer 219 H 198 H 247 H 70-110 MG/DL White Blood Count 4.8 4.3-11.0 10^3/uL Red Blood Count 2.97 L 4.35-5.85 10^6/uL Hemoglobin 9.5 L 11.5-16.0 G/DL Hematocrit 29 L 35-52 % Mean Corpuscular Volume 96 80-99 FL Mean Corpuscular Hemoglobin 32 25-34 PG Mean Corpuscular Hemoglobin Concent 33 32-36 G/DL Red Cell Distribution Width 13.2 10.0-14.5 % Platelet Count 206 130-400 10^3/uL Mean Platelet Volume 10.6 H 7.4-10.4 FL Sodium Level 138 135-145 MMOL/L Potassium Level 4.8 3.6-5.0 MMOL/L Chloride Level 107 98-107 MMOL/L Carbon Dioxide Level 21 21-32 MMOL/L Anion Gap 10 5-14 MMOL/L Blood Urea Nitrogen 52 H 7-18 MG/DL Creatinine 1.49 H 0.60-1.30 MG/DL Estimat Glomerular Filtration Rate 34 BUN/Creatinine Ratio 35 Glucose Level 232 H 70-105 MG/DL Calcium Level 11.4 H 8.5-10.1 MG/DL (NADIR LIM MD) My Orders (NADIR LIM MD) Medications Given in ED (NADIR LIM MD) Vital Signs/I&O 10/28/19 10/28/19 10/28/19 08:00 08:19 11:05 Temp 36.9 Pulse 52 Resp 16 B/P (MAP) 131/55 (80) Pulse Ox 100 100 O2 Delivery Room Air Room Air (NADIR LIM MD) Vital Signs/I&O Capillary Refill : Less Than 3 Seconds (VITA WATKINS,MED STUDENT) Blood Pressure Mean: 85 ECG Initial ECG Impression Date: Oct 25, 2019 Initial ECG Impression Time: 20:47 Initial ECG Rate: 45 Comment Bradycardia arrhythmia with no ST elevation or depression. Possible junctional rhythm. No abnormal intervals or axis deviation. (NADIR LIM MD) Diagnostic Imaging Diagonstic Imaging: Xray Plain Films/CT/US/NM/MRI: abdomen (NADIR LIM MD) Departure Communication (Admissions) Time/Spoke to Admitting Phy: 23:27 Dr. Pan Time/Spoke to Consulting Phy: 23:40 Dr. Martinez notified by message. (NADIR LIM MD) Impression Primary Impression: Acute renal failure Qualified Codes: N17.9 - Acute kidney failure, unspecified Additional Impressions: Hyperglycemia Urinary tract infection Qualified Codes: N39.0 - Urinary tract infection, site not specified Bradyarrhythmia Constipation Qualified Codes: K59.00 - Constipation, unspecified Disposition: 09 ADMITTED INPATIENT Condition: Improved Admissions Decision to Admit Reason: Admit from ER (General) Decision to Admit/Date: Oct 28, 2019 Time/Decision to Admit Time: 23:27 (NADIR LIM MD) Departure-Patient Inst. Referrals: RAYO SANDHU DO (PCP/Family) Primary Care Physician This patient was interviewed, seen and examined by me personally along with Vita Watkins, MS 4. I agree with MS 4 history, physical, assessment, and documentation except where otherwise noted. This patient comes from home feeling weak and possibly having altered mental status. She lives alone and presumably is having difficulty caring for herself. Her in-laws do help care for her. Exam: Gen.: Alert, oriented, no acute distress HEENT: Normocephalic and atraumatic Heart: Regular rate and rhythm without murmur Lungs: Clear to auscultation bilaterally with normal effort Abdomen: Soft, nontender, nondistended Skin: Warm and dry with no rashes Neuropsych: Alert, oriented, no focal deficits appreciated. Patient was found to have numerous problems including hyponatremia, hyperglycemia, constipation, urinary tract infection, and acute renal failure. Treatment with IV fluids and subcutaneous insulin was initiated. Admission to work on all of these issues was felt necessary. Patient also had a stable bradycardia that did not appear to be symptomatic. Dr. Martinez was consulted. Rocephin was given for initial treatment of urinary tract infection. (NADIR LIM MD) VITA WATKINS,MED STUDENT Oct 25, 2019 21:59 NADIR LIM MD Oct 25, 2019 23:50
[2019-10-25] MEDS ORDERED: NS IV 1000 ML 1,000 ML IV SCH (22:12)
[2019-10-25 22:24] LABS: FREE T4 (FREE THYROXINE) 0.97 NG/DL (0.70-1.48)
[2019-10-25] MEDS ORDERED: inSUlin (REGULAR) HUMAN 1 UNIT/0.01 ML (CHARGE PER UNIT) SC ONE (23:00)
[2019-10-25 23:22] LABS: BILIRUBIN,URINE NEGATIVE (NEGATIVE); CLARITY,URINE SL CLOUDY; COLOR,URINE OTHER; GLUCOSE, URINE (UA) 1+ (NEGATIVE); KETONES,URINE NEGATIVE (NEGATIVE); LEUKOCYTE ESTERASE ,URINE 1+ (NEGATIVE); NITRITE,URINE NEGATIVE (NEGATIVE); PROTEIN,URINE NEGATIVE (NEGATIVE)
[2019-10-25 23:31] LABS: BACTERIA,URINE MODERATE /HPF
[2019-10-25] MEDS ORDERED: cefTRIAXone FOR IV USE 1,000 MG in WATER (STERILE) FOR INJECTION 10 ML IV ONE (23:45)
[2019-10-26] VITALS (8 sets, daily range): BP systolic 109–165; BP diastolic 57–72
[2019-10-26] MEDS: NS IV 1000 ML 1,000 ML IV SCH ×3 (01:31→16:40)
[2019-10-26 05:24] LABS: WHITE BLOOD COUNT 5.8 10^3/uL (4.3-11.0)
[2019-10-26 05:25] LABS: BASOPHILS % (AUTO) 0 % (0-10); EOSINOPHILS # (AUTO) 0.1 10^3/uL (0.0-0.3); EOSINOPHILS % (AUTO) 1 % (0-10); HEMATOCRIT 30 % (35-52); HEMOGLOBIN 10.3 G/DL (11.5-16.0); LYMPHOCYTES # (AUTO) 0.8 X 10^3 (1.0-4.0); LYMPHOCYTES % (AUTO) 14 % (12-44); MEAN CORPUSCULAR HEMOGLOBIN 31 PG (25-34); MEAN CORPUSCULAR HGB CONC 34 G/DL (32-36); MEAN CORPUSCULAR VOLUME 91 FL (80-99); MEAN PLATELET VOLUME 9.6 FL (7.4-10.4); MONOCYTES # (AUTO) 0.6 X 10^3 (0.0-1.0); MONOCYTES % (AUTO) 11 % (0-12); NEUTROPHILS # (AUTO) 4.3 X 10^3 (1.8-7.8); NEUTROPHILS % (AUTO) 74 % (42-75); PLATELET COUNT 242 10^3/uL (130-400); RED CELL DISTRIBUTION WIDTH 12.8 % (10.0-14.5)
[2019-10-26 05:40] LABS: POTASSIUM 4.2 MMOL/L (3.6-5.0)
[2019-10-26 05:45] LABS: CREATININE SERUM 2.31 MG/DL (0.60-1.30)
[2019-10-26] MEDS: DOCUSATE SODIUM 100 MG (COLACE) CAP PO SCH ×2 (08:12→21:56)
[2019-10-26] MEDS: inSUlin ASPART (NovoLOG) 1 UNIT/0.01 ML (CHARGE PER UNIT) SC SCH ×4 (09:47→21:56)
--- NOTE | 2019-10-26 13:36 | History & Physical-Hospitalist ---
History of Present Illness HPI/Chief Complaint Pt is a a 79yoCF with a PMH of HTN, CKD, and CVA who presented to the ER due to abdominal pain and weakness. She reports poor appetite over the past few days and some constipation as well. She has a history of colon cancer and underwent resection but didn't need any cancer or radiation. She also has a history of breast cancer but underwent lumpectomy and radiation for this. She had a stroke earlier this year and thinks since then her memory hasn't been the same. She also complains of some urinary frequency but no dysuria. Source: patient Date Seen 10/26/19 Time Seen by a Provider: 13:31 Attending Physician Bassam Pan MD PCP Emerson Odom DO Referring Physician Date of Admission Oct 25, 2019 at 23:42 Home Medications & Allergies Home Medications Reviewed patient Home Medication Reconciliation performed by pharmacy medication reconciliations electronic organ technician and/or nursing. Patients Allergies have been reviewed. Allergies Allergies Coded Allergies No Known Drug Allergies (Unverified10/29/18) Past Hxgdoun-Fjyoon-Kvbrtl Hx Past Med/Social Hx: Reviewed Nursing Past Med/Soc Hx Patient Social History Alcohol Use: Denies Use Recreational Drug Use: No Smoking Status: Never a Smoker 2nd Hand Smoke Exposure: No Recent Foreign Travel: No Contact w/other who traveled: No Recent Hopitalizations: No Recent Infectious Disease Expo: No Immunizations Up To Date Tetanus Booster (TDap): Unknown Pediatric: Yes Date of Pneumonia Vaccine: Mar 17, 2014 Date of Influenza Vaccine: Dec 22, 2018 Seasonal Allergies Seasonal Allergies: Yes (MILD) Past Medical History Surgeries: Abdominal, Tonsillectomy, Tubal Ligation Cardiac: High Cholesterol, Hypertension Reproductive: No Sexually Transmitted Disease: No HIV/AIDS: No Tubal Ligation Genitourinary: Bladder Infection Musculoskeletal: Degenerate Disk Disease, Arthritis, Chronic Back Pain Endocrine: Diabetes, Non-Insulin dep Loss of Vision: Denies Hearing Impairment: Denies Cancer: Colon Did You Recieve Any Treatments: Yes What Type of Treatment Did You: Surgical Intervention Psychosocial: Depression History of Blood Disorders: No Adverse Reaction to Blood Mathis: No (N/A) Family History Reviewed Nursing Family Hx Alcoholism 19 FATHER Completed stroke 19 MOTHER Dementia 19 MOTHER Diabetes mellitus 19 MOTHER G8 BROTHER FH: breast cancer G8 SISTER FH: uterine cancer 19 MOTHER Hypertension G8 BROTHER Respiratory disorder 19 FATHER Review of Systems Constitutional: No chills, No fever EENTM: no symptoms reported Respiratory: No cough, No short of breath Gastrointestinal: constipation; No diarrhea; loss of appetite, nausea; No vomiting Genitourinary: No dysuria; frequency, incontinence Musculoskeletal: no symptoms reported Skin: no symptoms reported Psychiatric/Neurological: No Symptoms Reported Physical Exam Physical Exam Vital Signs Vital Signs - First Documented 10/25/19 20:50 Temp 36.5 Pulse 45 Resp 18 B/P (MAP) 103/76 (85) Pulse Ox 99 O2 Delivery Room Air Capillary Refill : Less Than 3 Seconds Height, Weight, BMI Height: 5'3.00" Weight: 221lbs. 3.0oz. 100.246288ki; 35.42 BMI Method: General Appearance: No Apparent Distress, Chronically ill, Obese HEENT: PERRL/EOMI, Moist Mucous Membranes; No Scleral Icterus (L), No Scleral I cterus (R) Neck: Normal Inspection, Supple; No Thyromegaly Respiratory: Lungs Clear, No Accessory Muscle Use, No Respiratory Distress Cardiovascular: Regular Rate, Rhythm, No Murmur Gastrointestinal: Normal Bowel Sounds, Non Tender, Soft Extremity: Normal Capillary Refill, No Calf Tenderness, No Pedal Edema Neurologic/Psychiatric: Alert, Oriented x3, Normal Mood/Affect Skin: Normal Color, Warm/Dry Results Results/Procedures Labs Laboratory Tests 10/25/19 21:00 10/26/19 05:10 Patient resulted labs reviewed. Imaging: Reviewed Imaging Report Imaging [facility] [place] NAME: ED[facility]UCK[facility] REC#: [id number] PT STATUS: REG ER : 1940 PHYSICIAN: NADIR LIM MD ADMIT DATE: 10/25/19/ER Signed Date of Exam:10/25/19 ABDOMEN/KUB 1VIEW INDICATION: Abdominal pain COMPARISON: None. FINDINGS: 2 views of the abdomen demonstrate mild constipation without obstruction or ileus. There is no free air. Osseous structures are age-appropriate. IMPRESSION: Mild constipation. Dictated by: Dictated on workstation # [id number] Dict: 10/25/192147 Trans: 10/25/192156 [facility] [id number] Interpreted by: MATTHEW GAGNON Electronically signed by: MATTHEW GAGNON 10/25/192156 Assessment/Plan Admission Diagnosis UTI Admission Status: Inpatient Order (span 2 midnights) Reason for Inpatient Admission: see below Assessment and Plan UTI CARY on CKD Stage 3 Dehydration Continue on IV abx Await cultures Continue IVF Trend labs Hold home diuretics NIDDMII BS very high on admission but improved this AM Resume home meds HTN Resume home BP meds History of Stroke Debility PT/OT DVT ppx: Lovenox Clinical Quality Measures DVT/VTE Risk/Contraindication: Risk Factor Score Per Nursin RFS Level Per Nursing on Admit: 4+=Very High BESSY PEREA MD Oct 26, 2019 13:36
--- NOTE | 2019-10-26 14:00 | NUR ---
Pastoral care visit.
--- NOTE | 2019-10-26 14:09 | Consultation-Cardiology ---
HPI-Cardiology Cardiology Consultation: Date of Consultation 10/26/19 Date of Admission Attending Physician Bassam Pan MD Admitting Physician Emerson Odom DO Consulting Physician Otis HA MD HPI: Time Seen by a Provider: 10:00 Chief Complaint: Bradycardia This is a 79-year-old lady with history of hypertension, chronic kidney disease and CVA. She presented to the ER with complain of weakness and abdominal discomfort. She also complained of decreased appetite recently. She has significant history of colon cancer with surgery. She also has history of breast cancer. She has history of CVA and frequent urinary frequency. She denies active smoking. She denies any significant pertinent family history. Review of Systems-Cardiology Review of Systems Constitutional: As described under HPI; No As described under HPI, No no symptoms reported, No chills, No fever, No lightheadedness Eyes: No As described under HPI, No no symptoms reported, No blindness, No blurred vision, No contact lenses, No drainage, No decreased acuity, No foreign body sensation, No pain, No vision change Ears/Nose/Throat: No As described under HPI, No no symptoms reported, No chronic hearing loss, No ear discharge, No ear pain, No nasal drainage, No ulcerations Respiratory: No no symptoms reported; As described under HPI; No As described under HPI, No cough, No orthopnea, No shortness of breath, No SOB with excertion Cardiovascular: No no symptoms reported; As described under HPI; No As described under HPI, No chest pain, No edema, No irregular heart rate, No lightheadedness, No palpitations Gastrointestinal: No no symptoms reported, No As described under HPI, No abdomen distended; abdominal pain; No blood streaked bowels, No constipation, No diarrhea, No nausea, No vomiting, No stool coloration changes Genitourinary: No As described under HPI, No burning, No dysuria, No discharge; frequency; No flank pain, No hematuria, No urgency : Yes : No Skin: No rash, No skin related problems, No ulcerations Psychiatric/Neurological: No anxiety, No depression, No seizure, No focal weakness, No syncope Hematologic: No bleeding abnormalities IHA-Ilbhey-Prshyv Hx Patient Social History Alcohol Use: Denies Use Recreational Drug Use: No Smoking Status: Never a Smoker 2nd Hand Smoke Exposure: No Recent Foreign Travel: No Recent Infectious Disease Expo: No Hospitalization with Isolation: Denies Immunizations Up To Date Tetanus Booster (TDap): Unknown Date of Pneumonia Vaccine: Mar 17, 2014 Date of Influenza Vaccine: Dec 22, 2018 Past Medical History PMH As described under Assessment. Family Medical History Family History: Alcoholism 19 FATHER Completed stroke 19 MOTHER Dementia 19 MOTHER Diabetes mellitus 19 MOTHER G8 BROTHER FH: breast cancer G8 SISTER FH: uterine cancer 19 MOTHER Hypertension G8 BROTHER Respiratory disorder 19 FATHER Allergies and Home Medications Allergies Coded Allergies: No Known Drug Allergies (Unverified , 10/29/18) Home Medications Acetaminophen 650 Mg Tablet.er, 650 MG PO Q8H PRN for PAIN-MILD (1-4), (Reported) Antiox#10/Om3/Dha/Epa/Lut/Zeax 1 Each Capsule, 1 EACH PO BID, (Reported) Aspirin 81 Mg Tablet.dr, 81 MG PO DAILY, (Reported) Atorvastatin Calcium 40 Mg Tablet, 40 MG PO DAILY, (Reported) Carvedilol 12.5 Mg Tablet, 12.5 MG PO BID, (Reported) Cholecalciferol (Vitamin D3) 50 Mcg Capsule, 50 MCG PO DAILY, (Reported) Ferrous Sulfate 325 Mg Tablet, 325 MG PO DAILY, (Reported) Ferrous Sulfate 325 Mg Tablet, 650 MG PO HS, (Reported) TAKES 2 (325MG) TABS Furosemide 40 Mg Tablet, 40 MG PO DAILY, (Reported) Glimepiride 2 Mg Tablet, 2 MG PO DAILY, (Reported) Hydrochlorothiazide 25 Mg Tablet, 25 MG PO DAILY, (Reported) Letrozole 2.5 Mg Tablet, 2.5 MG PO DAILY, (Reported) Levetiracetam 750 Mg Tablet, 750 MG PO BID, (Reported) Olmesartan Medoxomil 40 Mg Tablet, 40 MG PO DAILY, (Reported) [place] 3 Polyunsat Fatty Acids 1,000 Mg Cap, 1,000 MG PO BID, (Reported) Pantoprazole Sodium 40 Mg Tablet.dr, 40 MG PO DAILY, (Reported) Sertraline HCl 25 Mg Tablet, 25 MG PO DAILY, (Reported) Sitagliptin Phosphate 100 Mg Tablet, 100 MG PO DAILY, (Reported) Patient Home Medication List Home Medication List Reviewed: Yes Physical Exam-Cardiology Physical Exam Vital Signs/I&O 10/28/19 10/28/19 10/28/19 08:00 08:19 11:05 Temp 36.9 Pulse 52 Resp 16 B/P (MAP) 131/55 (80) Pulse Ox 100 100 O2 Delivery Room Air Room Air 10/28/19 00:00 Intake Total 1320 ml Output Total 200 ml Balance 1120 ml Capillary Refill : Less Than 3 Seconds Constitutional: appears stated age, AAO x 3; No apparent distress; well- developed, well-nourished HEENT: PERRL; No discharge; hearing is well preserved, oral hygience is good; No ulceration, No xanthelasmas are seen Neck: No carotid bruit; carotid pulses are 2 + bilaterally Respiratory: chest is bilaterally symmetric, lungs clear to auscultation Cardiovascular: regular rate-rhythm, bradycardia, S1 and S2 Gastrointestinal: soft, audible bowel sounds; No spleenomegaly Rectal: deferred Extremities: No clubbing, No cyanosis; no lower extremity edema bilateral; No significant edema Neurologic/Psychiatric: no motor/sensory deficits, alert, normal mood/affect, oriented x 3, power is 5/5 both on sides Skin: normal color; No rash, No ulcerations Data Review Labs Laboratory Tests 10/27/19 20:15: Glucometer 198H 10/28/19 05:21: Glucometer 247H 10/28/19 05:22: White Blood Count 4.8, Red Blood Count 2.97L, Hemoglobin 9.5L, Hematocrit 29L, Mean Corpuscular Volume 96, Mean Corpuscular Hemoglobin 32, Mean Corpuscular Hemoglobin Concent 33, Red Cell Distribution Width 13.2, Platelet Count 206, Mean Platelet Volume 10.6H, Sodium Level 138, Potassium Level 4.8, Chloride Level 107, Carbon Dioxide Level 21, Anion Gap 10, Blood Urea Nitrogen 52H, Creatinine 1.49H, Estimat Glomerular Filtration Rate 34, BUN/Creatinine Ratio 35, Glucose Level 232H, Calcium Level 11.4H Microbiology 10/25/19 Urine Culture - Final, Complete Enterococcus faecalis ECG Impression ECG Initial ECG Rhythm: S.Christopher A/P-Cardiology Assessment/Admission Diagnosis UTI sepsis, Acute on chronic kidney disease, Anemia, Sinus bradycardia, Hypertension, History of colon cancer and breast cancer. Plan UTI sepsis, defer to the primary team. IV antibiotics. Acute on chronic kidney disease, IV fluids. Anemia, likely due to chronic kidney disease. Sinus bradycardia, at 45 BPM. Patient is asymptomatic. Patient is on atenolol for hypertension. I will discontinue atenolol and follow. Recommend echocardiogram. Hypertension, discontinue atenolol and consider another agent for hypertension. History of colon cancer and breast cancer. Thank you for your consultation. Please call me if you have any questions. Arleen Ha MD, FACP, FACC, FSCAI, FHRS, CCDS Interventional Cardiology Cardiac Electrophysiology Vascular Medicine and Endovascular Interventions Clinical Quality Measures DVT/VTE Risk/Contraindication: Risk Factor Score Per Nursin RFS Level Per Nursing on Admit: 4+=Very High Otis HA MD Oct 26, 2019 14:09
--- NOTE | 2019-10-26 14:36 | Physical Therapy Evaluation ---
PT Evaluation-General Medical Diagnosis Admission Date Oct 25, 2019 at 23:42 Medical Diagnosis: ARF/hyperglycemia/constipation Onset Date: Oct 25, 2019 Therapy Diagnosis Therapy Diagnosis: generalized weakness/debility Height/Weight Height (Feet): 5 Height (Inches): 3.00 Weight (Pounds): 221 Weight (Ounces): 3.0 Precautions Precautions/Isolations: Fall Prevention, Standard Precautions Weight Bear Status Right Lower Extremity: Right Weight Bearing/Tolerated Left Lower Extremity: Left Weight Bearing/Tolerated Referral Physician: Shana Reason for Referral: Evaluation/Treatment Medical History Pertinent Medical History: CVA, DM, HTN, Renal Insufficiency Additional Medical History colon cancer May 2018 Current History ER with abdominal pain and loss of appetite Reviewed History: Yes Social History Home: Multilevel (lives on 1st floor only) Current Living Status: Alone Entry Into Home: Stairs With Railing (3) Prior Prior Level of Function SCALE: Activities may be completed with or without assistive devices. 0-Ozvovfcvfr-vwsvkvx completes the activity by him/herself with no assistance from a helper. 5-Set-up or Clean-up Assistance-helper sets up or cleans up; patient completes activity. [place] assists only prior to or following the activity. 4-Supervision or Touching Assistance-helper provides verbal cues and/or touching/steadying and/or contact guard assistance as patient completes activity. Assistance may be provided throughout the activity or intermittently. 3-Partial/Moderate Assistance-helper does LESS THAN HALF the effort. [place] lifts, holds or supports trunk or limbs, but provides less than half the effort. 2-Substantial/Maximal Assistance-helper does MORE THAN HALF the effort. [place] lifts or holds trunk or limbs and provides more than half the effort. 8-Denhkqulp-lhanic does ALL the effort. Patient does none of the effort to complete the activity. Or, the assistance of 2 or more helpers is required for the patient to complete the activity. If activity was not attempted, code reason: 7-Patient Refused. 9-Not Applicable-not attempted and the patient did not perform the activity before the current illness, exacerbation or injury. 10-Not Attempted due to Environmental Limitations-(lack of equipment, weather restraints, etc.). 88-Not Attempted due to Medical Conditions or Safety Concerns. Bed Mobility: 6 Transfers (B,C,W/C): 6 Gait: 6 Stairs: 6 Indoor Mobility (Ambulation): Independent Stairs: Independent Prior Devices Use: Walker PT Evaluation-Current Subjective Patient agrees to PT. Noted incontinence urine. Pain Numeric Pain Scale: 0-No Pain Location: No Pain Reported Objective Patient Orientation: Person, Time, Situation Attachments: IV ROM/Strength ROM Lower Extremities bilateral LE WFL Strength Lower Extremities 3/5 grossly bilateral LE Integumentary/Posture Integumentary refer to nursing notes Bladder Incontinence: Yes Posture WFL Neuromuscular (Tone, Coordination, Reflexes) grossly intact Sensory Vision: Functional Hearing: Functional Sensation Right Lower Extremit: Impaired Sensation Left Lower Extremity: Impaired Transfers Roll Left to Right (QC): 5 Lying to Sitting/Side of Bed(Q: 5 Sit to Stand (QC): 4 Chair/Sxa-gb-Fjnlt Xfer(QC): 4 Gait Does the Patient Walk?: Yes Mode of Locomotion: Walk Anticipated Mode of Locomotion: Walk Walk 10 feet (QC): 4 Walk 50 ft with 2 Turns(QC): 4 Distance: 75' Gait Assistive Device: FWW Comments/Gait Description slow, shuffle gait sequence Balance Sitting Static: Normal Sitting Dynamic: Normal Standing Static: Fair Standing Dynamic: Fair Assessment/Needs 79 y.o. female, will benefit from skilled PT to address functional strength and mobility to improve current LOF to safely return to home at maximum LOF. Rehab Potential: Fair PT Manager Export Goals Manager Export Goals PT Manager Export Goals Time Frame: Nov 06, 2019 Roll Left & Right (QC): 6 Sit to Lying (QC): 6 Lying-Sitting on Side/Bed(QC): 6 Sit to Stand (QC): 6 Chair/Fxp-dk-Clzro Xfer(QC): 6 Toilet Transfer (QC): 6 Does the Patient Walk: Yes Walk 10 feet (QC): 6 Walk 50ft with 2 Turns (QC): 6 Walk 150 ft (QC): 6 PT Plan Problem List Problem List: Activity Tolerance, Functional Strength, Balance, Gait, Transfer, Bed Mobility Treatment/Plan Treatment Plan: Continue Plan of Care Treatment Plan: Bed Mobility, Education, Functional Activity Odalys, Functional Strength, Gait, Safety, Therapeutic Exercise, Transfers Treatment Duration: Nov 06, 2019 Frequency: 6 times per week Estimated Hrs Per Day: .25 hour per day Patient and/or Family Agrees t: Yes Time/GCodes Time In: 1345 Time Out: 1358 Total Billed Treatment Time: 13 Total Billed Treatment 1 visit EVModC 13 min PAUL REYES PT Oct 26, 2019 14:36
--- NOTE | 2019-10-26 14:39 | NUR ---
SPOKE WITH PATIENTS DAUGHTER IN LAW SABAS- SHE IS GOING TO CALL ME WHEN SHE GETS HOME AND CAN GO OVER THE MED LIST WITH ME Addendum: 10/26/19 at 1556 by SIA GARCIA [facility] SABAS RETURNED MY CALL AND WE WENT OVER HER LIST SHE HAS AND I WENT THRU THE EXT MED HISTORY TO COMPLETE THE MED REC MULTIPLE MEDICATIONS SHOW THEY ARE PAST DUE (GLIMEPIRIDE 2MG 07-14-2019 #30, HCTZ 25MG 07-14-2019 #30/30DS, BENICAR 40MG 04-29-2019 #60/60DS, JANUVIA 100MG 04-05-2019 #90/90DS) BUT DIL INFORMED ME THAT MID-APRIL PT SUFFERED A STROKE AND THEN WENT INTO A LONG TERM. PT WAS IN THE NURSING FACILITY FROM APRIL 2019 THRU JULY 2019. FOR THIS REASON I DID NOT INCLUDE THE PAST DUE REFILLS ON THE MED REC PT IS NO LONGER TAKING METFORMIN 500MG OTC MEDS: IRON 325MG 1 AM AND 2 HS I-CAPS FISH OIL VIT D TYLENOL 650MG
--- NOTE | 2019-10-26 14:59 | NUR ---
RD ASSESSMENT PMHx: hypercholesterolemia; HTN; DM; CA(colon) PT INTERACTION: Pt was awake and pleasant during nutrition assessment. Pt states current appetite is pretty good. Note avg PO intake <75% x2meal, per chart review. Pt states following a regular diet at home, and has no issues with chewing/swallowing food. Pt states no recent issues with nausea, vomiting, or diarrhea. Pt states some issues with constipation, and that her last BM was "over 1w ago." Note pt currently on bowel regimen of colace BID, per chart review. Pt states recent 20# wt loss. Note recent 20# wt gain x6mon, per chart review. Pt states current DM management isn't very good. "I've been having high blood sugar readings recently." Note unable to determine recent HbA1c, per chart review. ABNORMAL NUTRITION-RELATED LAB VALUES LOW: Na 133; HIGH: BUN 80; cr 2.31; glu 244; Ca 11.0 Est. kcal needs: 1350 kcal | 15 kcal/kg Est. Pro needs: 72 g Pro | 0.8 g Pro/kg PES STATEMENT: Given current PO intake, no nutrition diagnosis at this time (NO-1.1) INTERVENTION: Continue with current diet order of CHO 75g/m 1snack diet. Would recommend DC current supplementation order of Ensure Enlive with meals TID. Pt avg PO intake 75%, so she is meeting her needs without the supplement. Offered diet education on DM management, but pt declined at this time, stating normally good control at home. May attempt to offer again prior to discharge. Will continue to follow and reassess as pt needs, intake, and status change. MONITOR/EVALUATE: PO Intake; Plan of Care; Hydration Status; Weight Status; Lab Values Shikha Best, MS, RD, LD
[2019-10-26] MEDS ORDERED: FURO40TA4 PO (15:46)
[2019-10-26] MEDS ORDERED: OLME40TA18 PO (15:46)
[2019-10-26] MEDS ORDERED: ATOR40TA70 PO (15:46)
[2019-10-26] MEDS ORDERED: ANTI1CAP2 PO (15:46)
[2019-10-26] MEDS ORDERED: CARV12.53 PO (15:46)
[2019-10-26] MEDS ORDERED: PANT40TA3 PO (15:46)
[2019-10-26] MEDS ORDERED: CHOL20003 PO (15:46)
[2019-10-26] MEDS ORDERED: ASPI-983 PO (15:46)
[2019-10-26] MEDS ORDERED: SERT25TA5 PO (15:46)
[2019-10-26] MEDS ORDERED: LEVE750T5 PO (15:46)
[2019-10-26] MEDS ORDERED: FERR-84 PO (15:46)
[2019-10-26] MEDS ORDERED: ACET-2650 PO (15:47)
[2019-10-26] MEDS ORDERED: NON-FORMULARY MEDICATION 1 EA EA (Acetaminophen (Tylenol Arthritis) 650 MG) PO PRN (16:00)
[2019-10-26] MEDS ORDERED: ACETAMINOPHEN 325 MG TABLET PO PRN (16:15)
[2019-10-26] MEDS ORDERED: FLEET ENEMA ADULT 1 EA BTL PR PRN (16:15)
[2019-10-26] MEDS ORDERED: SENNA W/DOCUSATE (SENOKOT S) TABLET PO PRN (16:15)
[2019-10-26] MEDS ORDERED: ENOXAPARIN 40 MG/0.4 ML (LOVENOX) SYR SQ SCH (16:30)
--- NOTE | 2019-10-26 16:33 | NUR ---
DAUGHTER CALLED AT THIS TIME TO BRING FEMARA MEDICATION THAT WILL BE DO TOMORROW AT 0900. DAUGHTER STATED SHE WOULD BRING THE MEDICATION AND HER CELL PHONE AND BRAKER PASSENGER TRAIN.
[2019-10-26] MEDS: ENOXAPARIN 30 MG/0.3 ML (LOVENOX) SYR SC SCH (16:40)
--- NOTE | 2019-10-26 19:06 | NUR ---
DR. PEREA DOES NOT WANT ATENOLOL GIVEN THIS ADMISSION PER CARDIAC PCP.
[2019-10-26] MEDS ORDERED: NON-FORMULARY MEDICATION 1 EA EA (Levetiracetam 750 MG) PO SCH (21:00)
[2019-10-26] MEDS ORDERED: CARVEDILOL 12.5 MG (COREG) TABLET PO SCH (21:00)
[2019-10-26] MEDS: LEVETIRACETAM 500 MG (KEPPRA) TAB PO SCH (21:56)
[2019-10-26] MEDS ORDERED: cefTRIAXone 1,000 MG/SWFI 10 ML IV PUSH IV SCH ×2 (23:30)
[2019-10-27 04:00] VITALS: BP 117/61
[2019-10-27 05:49] LABS: CALCIUM 10.7 MG/DL (8.5-10.1); CREATININE SERUM 1.9 MG/DL (0.60-1.30)
[2019-10-27] MEDS: inSUlin ASPART (NovoLOG) 1 UNIT/0.01 ML (CHARGE PER UNIT) SC SCH ×4 (06:02→20:59)
[2019-10-27] MEDS: GLIMEPIRIDE 2 MG (AMARYL) TAB PO SCH (06:02)
[2019-10-27 06:10] LABS: HEMOGLOBIN 9.8 G/DL (11.5-16.0); MEAN PLATELET VOLUME 9.9 FL (7.4-10.4); RED CELL DISTRIBUTION WIDTH 13.2 % (10.0-14.5); WHITE BLOOD COUNT 5.7 10^3/uL (4.3-11.0)
[2019-10-27] MEDS: NS IV 1000 ML 1,000 ML IV SCH (07:35)
[2019-10-27 07:42] VITALS: BP 134/67
[2019-10-27] MEDS: VITAMIN D3 25 MCG (1,000 UNITS) TABLET PO SCH (08:44)
[2019-10-27] MEDS: VALSARTAN 160 MG (DIOVAN) TABLET PO SCH (08:44)
[2019-10-27] MEDS: DOCUSATE SODIUM 100 MG (COLACE) CAP PO SCH ×2 (08:45→21:02)
[2019-10-27] MEDS: SERTRALINE 50 MG (ZOLOFT) TABLET PO SCH (08:45)
[2019-10-27] MEDS: ASPIRIN E.C. 81 MG (ECOTRIN) TAB PO SCH (08:45)
[2019-10-27] MEDS: LEVETIRACETAM 500 MG (KEPPRA) TAB PO SCH ×2 (08:45→21:02)
[2019-10-27] MEDS: PANTOPRAZOLE 40 MG (PROTONIX) TAB PO SCH (08:45)
[2019-10-27] MEDS: HYDROCHLOROTHIAZIDE 25 MG (HCTZ) TAB PO SCH (08:52)
[2019-10-27] MEDS ORDERED: NON-FORMULARY MEDICATION 1 EA EA (Cholecalciferol (Vitamin D3) (Vitamin D3) 50 MCG) PO SCH (09:00)
[2019-10-27] MEDS ORDERED: NON-FORMULARY MEDICATION 1 EA EA (Sertraline HCl 25 MG) PO SCH (09:00)
[2019-10-27] MEDS ORDERED: NON-FORMULARY MEDICATION 1 EA EA (Olmesartan Medoxomil 40 MG) PO SCH (09:00)
[2019-10-27] MEDS ORDERED: LETROZOLE 2.5 MG (FEMARA) TAB PO SCH (09:00)
--- NOTE | 2019-10-27 09:56 | Progress Note - Hospitalist ---
Subjective HPI/CC On Admission Date Seen by Provider: Oct 27, 2019 Time Seen by Provider: 09:52 Pt is a a 79yoCF with a PMH of HTN, CKD, and CVA who presented to the ER due to abdominal pain and weakness. She reports poor appetite over the past few days and some constipation as well. She has a history of colon cancer and underwent resection but didn't need any cancer or radiation. She also has a history of breast cancer but underwent lumpectomy and radiation for this. She had a stroke earlier this year and thinks since then her memory hasn't been the same. She also complains of some urinary frequency but no dysuria. Subjective/Events-last exam Pt reports feeling better today. Still weak though. Objective Exam Vital Signs Vital Signs Date Time Temp Pulse Resp B/P (MAP) Pulse Ox O2 Delivery O2 Flow Rate FiO2 10/27/19 07:42 37.0 56 16 134/67 (89) 98 Room Air Capillary Refill : Less Than 3 Seconds General Appearance: No Apparent Distress, Chronically ill, Obese Respiratory: Lungs Clear, No Respiratory Distress Cardiovascular: Regular Rate, Rhythm, No Murmur Neurologic/Psychiatric: Alert, Oriented x3, Normal Mood/Affect Results/Procedures Lab Laboratory Tests 10/27/19 05:00 Patient resulted labs reviewed. Imaging: Reviewed Imaging Report Assessment/Plan Assessment and Plan Assess & Plan/Chief Complaint UTI- enterococcus faecalis CARY on CKD Stage 3 Dehydration Switch to amoxil per sensitivities Trend labs, creatinine improving Hold home diuretics NIDDMII BS very high on admission but improved this AM Continue home meds SSI HTN Continue home meds but hold coreg for bradycardia History of Stroke Debility PT/OT Consider IRU for DC vs HH DVT ppx: Lovenox Diagnosis/Problems Diagnosis/Problems (1) Acute renal failure Status: Acute Qualifiers: Acute renal failure type: unspecified Qualified Codes: N17.9 - Acute kidney failure, unspecified (2) Hyperglycemia Status: Acute (3) Bradyarrhythmia Status: Acute (4) Urinary tract infection Status: Acute Qualifiers: Urinary tract infection type: site unspecified Hematuria presence: without hematuria Qualified Codes: N39.0 - Urinary tract infection, site not specified (5) Hypertension Status: Chronic Qualifiers: Hypertension type: essential hypertension Qualified Codes: I10 - Essential (primary) hypertension (6) Carcinoma of left breast Status: Chronic Qualifiers: Breast location: unspecified site of breast Estrogen receptor status: positive Patient sex: female Qualified Codes: C50.912 - Malignant neoplasm of unspecified site of left female breast; Z17.0 - Estrogen receptor positive status [ER+] Clinical Quality Measures DVT/VTE Risk/Contraindication: Risk Factor Score Per Nursin RFS Level Per Nursing on Admit: 4+=Very High BESSY PEREA MD Oct 27, 2019 09:56
--- NOTE | 2019-10-27 09:58 | NUR ---
Pt states she lives alone and has interment care from family. She is willing to be admitted to Acute Rehab as states she would have difficulty managing at home due to weakness and loss of function but her goal is definitely to return home.
[2019-10-27] MEDS: AMOXICILLIN 500 MG (POLYMOX) CAP PO SCH ×3 (12:07→21:02)
[2019-10-27 12:33] VITALS: BP 126/61
--- NOTE | 2019-10-27 14:48 | Occupational Therapy Eval ---
OT Evaluation-General/PLF Medical Diagnosis Admission Date Oct 25, 2019 at 23:42 Medical Diagnosis: ARF/hyperglycemia/constipation Onset Date: Oct 25, 2019 Therapy Diagnosis Therapy Diagnosis: Decreased ADL skills and weakness Height/Weight Height (Feet): 5 Height (Inches): 3.00 Weight (Pounds): 221 Weight (Ounces): 3.0 Precautions Precautions/Isolations: Fall Prevention, Standard Precautions Weight Bear Status Weight Bearing Restriction: Weight Bearing/Tolerated Referral Physician: Shana Referral Reason: Activity Tolerance, Self Care, Evaluation/Treatment, Strengthening/ROM Medical History Pertinent Medical History: CVA, DM, HTN, Renal Insufficiency Additional Medical History CKD, colon cancer, colon resection, breast cancer Current History Pt arrived via EMS due to abdominal pain, weakness, and dehydration Reviewed History: Yes Social History Home: Multilevel (lives on 1st floor only) Current Living Status: Alone Entry Into Home: Stairs With Railing Steps Into Home: 5 ADL-Prior Level of Function SCALE: Activities may be completed with or without assistive devices. 9-Jdvtmfjfzt-rnagavq completes the activity by him/herself with no assistance from a helper. 5-Set-up or Clean-up Assistance-helper sets up or cleans up; patient completes activity. [place] assists only prior to or following the activity. 4-Supervision or Touching Assistance-helper provides verbal cues and/or touching/steadying and/or contact guard assistance as patient completes activity. Assistance may be provided throughout the activity or intermittently. 3-Partial/Moderate Assistance-helper does LESS THAN HALF the effort. [place] lifts, holds or supports trunk or limbs, but provides less than half the effort. 2-Substantial/Maximal Assistance-helper does MORE THAN HALF the effort. [place] lifts or holds trunk or limbs and provides more than half the effort. 3-Gpryprsan-hkxisx does ALL the effort. Patient does none of the effort to complete the activity. Or, the assistance of 2 or more helpers is required for the patient to complete the activity. If activity was not attempted, code reason: 7-Patient Refused. 9-Not Applicable-not attempted and the patient did not perform the activity before the current illness, exacerbation or injury. 10-Not Attempted due to Environmental Limitations-(lack of equipment, weather restraints, etc.). 88-Not Attempted due to Medical Conditions or Safety Concerns. ADL PLOF Comments Pt reported that she lives at home alone. Her house is multilevel, however she only lives on the first floor. When at home, pt. utilizes walker for mobility. Pt. has a tub with a bench and rails. Her bwxykcyc-al-dwv assists her when she is at home for meals and provides her with transportation to grocery store and appointments. Self Care: Needed Some Help Functional Cognition: Independent DME/Equipment: Bath Bench, Grab Bars, Tub, Tub/Shower DME/Equipment Comments Walker Drive Self: No OT Current Status Subjective Pt in bed when OT entered room. She reported that she has some pain in her legs, but did not rate. When asked about pain medication, pt stated that she had taken some recently. Pt. agreeable to therapy. Mental Status/Objective Patient Orientation: Person, Place, Time Attachments: IV Current Dentures/Partials: Yes Upper Extremity ROM WFL Upper Extremity Strength WFL ADL-Treatment Lower Body Dressing (QC): 1 (With brief) On/Off Footwear (QC): 3 (Mod A) Toileting Hygiene (QC): 1 (Pt incontinent of bladder) Pt in bed when OT entered room. She answered all questions appropriately. Pt. able to transfer supine- EOB with SBA and extra time. She reported that she was slightly dizzy after sitting up and was cued to sit and relax to gain her balance. Pt. states she is no longer dizzy. Pt. removed her slipper socks independently, but was fatigued after removing and unable to don slipper socks. Pt. requested to walk around, however once standing at EOB requested to use restroom. Required SBA to stand at bedside with walker. Pt provided with BSC and transferred with walker and CGA. While seated on BSC, pt was dependent with cleansing thea area. OT doffed wet brief and donned clean brief, as pt. unable to reach her feet. Pt. completed transfer back to EOB with CGA. EOB-supine transfer independent. Call light in reach and all needs met when OT left room. Education OT Patient Education: Correct positioning, Energy conservation, Modified ADL techniques, Progress toward Goal/Update tx plan, Purpose of tx/functional activities, Reviewed precautions, Rehab process, Safety issues, Transfer techniques Teaching Recipient: Patient Teaching Methods: Demonstration, Discussion Response to Teaching: Verbalize Understanding, Return Demonstration OT Short Term Goals Short Term Goals Time Frame: Nov 03, 2019 Eatin Oral hygiene: 6 Toileting hygiene: 3 Shower/bathe self: 4 Upper body dressin Lower body dressin Putting on/taking off footwear: 3 OT Fdc Goals Program Clerk Goals Time Frame: Nov 10, 2019 Eating (QC): 6 Oral Hygiene (QC): 6 Toileting Hygiene (QC): 6 Shower/Bathe Self (QC): 6 Upper Body Dressing (QC): 6 Lower Body Dressing (QC): 6 On/Off Footwear (QC): 4 Additional Goals: 1-Demonstrate ADL Tasks, 2-Verbalize Understanding, 3- ImproveStrength/Odalys 1=Demonstrate adherence to instructed precautions during ADL tasks. 2=Patient will verbalize/demonstrate understanding of assistive devices/modifications for ADL. 3=Patient will improve strength/tolerance for activity to enable patient to perform ADL's. OT Education/Plan Problem List/Assessment Assessment: Decreased Activ Tolerance, Impaired Funct Balance, Impaired I ADL's, Impaired Self-Care Skills Discharge Recommendations Plan/Recommendations: Continue POC Therapy Discharge Recommendati: Home & Family, Post Acute OT Treatment Plan/Plan of Care Treatment,Training & Education: Yes Patient would benefit from OT for education, treatment and training to promote independence in ADL's, mobility, safety and/or upper extremity function for ADL's. Plan of Care: ADL Retraining, Functional Mobility, UE Funct Exercise/Act Treatment Duration: Nov 10, 2019 Frequency: 5 times per week Estimated Hrs Per Day: .25 hour per day Agreement: Yes Rehab Potential: Good Time/GCodes Start Time: 11:25 Stop Time: 12:00 Total Time Billed (hr/min): 35 Billed Treatment Time 1, EVM (15 minutes), ADL (20 minutes) KEESHA AUGUSTIN OT Oct 27, 2019 14:48
--- NOTE | 2019-10-27 15:49 | Physical Therapy Daily Note ---
PT Daily Note-Current Subjective Pt laying Supine in bed upon arrival. Pt reports feeling very cold. "I just can't warm up." Pt agrees to PT. Pain Location: No Pain Reported Mental Status Patient Orientation: Person, Place, Situation Attachments: IV Transfers SCALE: Activities may be completed with or without assistive devices. 9-Sqtsggfsnd-wcpumtu completes the activity by him/herself with no assistance from a helper. 5-Set-up or Clean-up Assistance-helper sets up or cleans up; patient completes activity. [place] assists only prior to or following the activity. 4-Supervision or Touching Assistance-helper provides verbal cues and/or touching/steadying and/or contact guard assistance as patient completes activ ity. Assistance may be provided throughout the activity or intermittently. 3-Partial/Moderate Assistance-helper does LESS THAN HALF the effort. [place] lifts, holds or supports trunk or limbs, but provides less than half the effort. 2-Substantial/Maximal Assistance-helper does MORE THAN HALF the effort. [place] lifts or holds trunk or limbs and provides more than half the effort. 0-Ucmhsfkzu-qlgdbs does ALL the effort. Patient does none of the effort to complete the activity. Or, the assistance of 2 or more helpers is required for the patient to complete the activity. If activity was not attempted, code reason: 7-Patient Refused. 9-Not Applicable-not attempted and the patient did not perform the activity before the current illness, exacerbation or injury. 10-Not Attempted due to Environmental Limitations-(lack of equipment, weather restraints, etc.). 88-Not Attempted due to Medical Conditions or Safety Concerns. Weight Bearing Right Lower Extremity: Right Weight Bearing/Tolerated Left Lower Extremity: Left Weight Bearing/Tolerated Exercises Supine Ex: Ankle pumps, Quad Set, Heel Slides, Hip abd/add Supine Reps: 20 Treatments Pt asks for warm blanket to warm up with. Pt then completes Supine Ex until LEARNING AND DEVELOPMENT ASSOCIATE arrives for vitals and BS check. Pt resting at end of tx with all needs met, call light in hand. Assessment Current Status: Fair Progress Pt reports and appears tired upon arrival. Pt able to complete Ex. PT Detention Goals Time Clerk Goals PT Time Clerk Goals Time Frame: Nov 06, 2019 Roll Left & Right (QC): 6 Sit to Lying (QC): 6 Lying-Sitting on Side/Bed(QC): 6 Sit to Stand (QC): 6 Chair/Ojs-yl-Qjasj Xfer(QC): 6 Toilet Transfer (QC): 6 Does the Patient Walk: Yes Walk 10 feet (QC): 6 Walk 50ft with 2 Turns (QC): 6 Walk 150 ft (QC): 6 PT Plan Problem List Problem List: Activity Tolerance, Functional Strength Treatment/Plan Treatment Plan: Continue Plan of Care Treatment Plan: Bed Mobility, Education, Functional Activity Odalys, Functional Strength, Gait, Safety, Therapeutic Exercise, Transfers Treatment Duration: Nov 06, 2019 Frequency: 6 times per week Estimated Hrs Per Day: .25 hour per day Patient and/or Family Agrees t: Yes Safety Risks/Education Patient Education: Correct Positioning, Safety Issues Teaching Recipient: Patient Teaching Methods: Discussion Response to Teaching: Verbalize Understanding Time/GCodes Time In: 1515 Time Out: 1535 Total Billed Treatment Time: 20 Total Billed Treatment 1, EX (20m) TASHA HINOJOSA FILLING AND STAPLING MACHINE OPERATOR Oct 27, 2019 15:49
--- NOTE | 2019-10-27 15:56 | NUR ---
IRF Evaluation Determination: Accepted Upon reviewing chart patient does appear she would benefit from further PT/OT. Dr. Saldana notified of acceptance. Anticipate admission, 10/28/19. Will meet with patient to discuss details related to inpatient rehabilitation program. Thank you for this referral.
[2019-10-27 16:00] VITALS: BP 151/65
[2019-10-27] MEDS: ENOXAPARIN 30 MG/0.3 ML (LOVENOX) SYR SC SCH (16:41)
--- NOTE | 2019-10-27 17:50 | Cardiology Progress Note ---
Cardiology SOAP Progress Note Subjective: No cardiac symptoms. Objective: I&O/Vital Signs 10/28/19 10/28/19 10/28/19 08:00 08:19 11:05 Temp 36.9 Pulse 52 Resp 16 B/P (MAP) 131/55 (80) Pulse Ox 100 100 O2 Delivery Room Air Room Air 10/28/19 00:00 Intake Total 1320 ml Output Total 200 ml Balance 1120 ml Weight (Pounds): 221 Weight (Ounces): 3.0 Weight (Calculated Kilograms): 100.049446 Constitutional: AAO x 3 Respiratory: chest is bilaterally symmetric, lungs clear to auscultation Cardiovascular: regular rate-rhythm, S1 and S2 Gastrointestional: soft, audible bowel sounds Extremities: no lower extremity edema bilateral Neurologic/Psychiatric: no motor/sensory deficits, alert, normal mood/affect, oriented x 3 Skin: normal color Results/Procedures: Labs Laboratory Tests 10/27/19 20:15: Glucometer 198H 10/28/19 05:21: Glucometer 247H 10/28/19 05:22: White Blood Count 4.8, Red Blood Count 2.97L, Hemoglobin 9.5L, Hematocrit 29L, Mean Corpuscular Volume 96, Mean Corpuscular Hemoglobin 32, Mean Corpuscular Hemoglobin Concent 33, Red Cell Distribution Width 13.2, Platelet Count 206, Mean Platelet Volume 10.6H, Sodium Level 138, Potassium Level 4.8, Chloride Level 107, Carbon Dioxide Level 21, Anion Gap 10, Blood Urea Nitrogen 52H, Creatinine 1.49H, Estimat Glomerular Filtration Rate 34, BUN/Creatinine Ratio 35, Glucose Level 232H, Calcium Level 11.4H Microbiology 10/25/19 Urine Culture - Final, Complete Enterococcus faecalis A/P: Assessment/Dx: UTI sepsis, Acute on chronic kidney disease, Anemia, Sinus bradycardia, Hypertension, History of colon cancer and breast cancer. Plan: UTI sepsis, defer to the primary team. IV antibiotics. Acute on chronic kidney disease, IV fluids. Anemia, likely due to chronic kidney disease. Sinus bradycardia, at 45 BPM. Patient is asymptomatic. Patient is on atenolol for hypertension. I will discontinue atenolol and follow. Echocardiogram showed normal LV function with mild pulmonary hypertension. Mild diastolic dysfunction. Hypertension, discontinue atenolol and consider another agent for hypertension. History of colon cancer and breast cancer. Thank you for your consultation. Please call me if you have any questions. Arleen Ha MD, FACP, FACC, FSCAI, FHRS, CCDS Interventional Cardiology Cardiac Electrophysiology Vascular Medicine and Endovascular Interventions Otis HA MD Oct 27, 2019 17:50
[2019-10-27 18:00] VITALS: BP 151/65
[2019-10-27 20:00] VITALS: BP 110/62
[2019-10-28 00:26] VITALS: BP 110/53
[2019-10-28 04:00] VITALS: BP 113/68
[2019-10-28] MEDS: GLIMEPIRIDE 2 MG (AMARYL) TAB PO SCH (06:01)
[2019-10-28 06:02] LABS: HEMOGLOBIN 9.5 G/DL (11.5-16.0); MEAN PLATELET VOLUME 10.6 FL (7.4-10.4); RED CELL DISTRIBUTION WIDTH 13.2 % (10.0-14.5); WHITE BLOOD COUNT 4.8 10^3/uL (4.3-11.0)
[2019-10-28] MEDS: inSUlin ASPART (NovoLOG) 1 UNIT/0.01 ML (CHARGE PER UNIT) SC SCH (06:02)
[2019-10-28 08:19] VITALS: BP 131/55
[2019-10-28] MEDS: AMOXICILLIN 500 MG (POLYMOX) CAP PO SCH (09:19)
[2019-10-28] MEDS: PANTOPRAZOLE 40 MG (PROTONIX) TAB PO SCH (09:19)
[2019-10-28] MEDS: VALSARTAN 160 MG (DIOVAN) TABLET PO SCH (09:19)
[2019-10-28] MEDS: ASPIRIN E.C. 81 MG (ECOTRIN) TAB PO SCH (09:19)
[2019-10-28] MEDS: SERTRALINE 50 MG (ZOLOFT) TABLET PO SCH (09:20)
[2019-10-28] MEDS: DOCUSATE SODIUM 100 MG (COLACE) CAP PO SCH (09:20)
[2019-10-28] MEDS: LEVETIRACETAM 500 MG (KEPPRA) TAB PO SCH (09:21)
[2019-10-28] MEDS: VITAMIN D3 25 MCG (1,000 UNITS) TABLET PO SCH (09:21)
[2019-10-28] MEDS: HYDROCHLOROTHIAZIDE 25 MG (HCTZ) TAB PO SCH (09:22)
--- NOTE | 2019-10-28 10:12 | NUR ---
Mariaa pleased with plan to admit to Acute Rehab Unit. She had previous experience in a fdc for 30 days and was able to return home and didn't want to seek fdc placement nor does she feel strong enough to return home alone. Recognizes that therapies will be rigorous.
--- NOTE | 2019-10-28 11:16 | NUR ---
REPORT CALLED TO CORNEL IN ARU.
--- NOTE | 2019-10-28 18:17 | Cardiology Progress Note ---
Cardiology SOAP Progress Note Subjective: No cardiac complaints. Objective: I&O/Vital Signs 10/28/19 10/28/19 10/28/19 08:00 08:19 11:05 Temp 36.9 Pulse 52 Resp 16 B/P (MAP) 131/55 (80) Pulse Ox 100 100 O2 Delivery Room Air Room Air 10/28/19 00:00 Intake Total 1320 ml Output Total 200 ml Balance 1120 ml Weight (Pounds): 221 Weight (Ounces): 3.0 Weight (Calculated Kilograms): [id number] Constitutional: AAO x 3 Respiratory: chest is bilaterally symmetric, lungs clear to auscultation Cardiovascular: regular rate-rhythm, S1 and S2 Gastrointestional: soft, audible bowel sounds Extremities: no lower extremity edema bilateral Neurologic/Psychiatric: no motor/sensory deficits, alert, normal mood/affect, oriented x 3 Skin: normal color Results/Procedures: Labs Laboratory Tests 10/27/19 20:15: Glucometer 198H 10/28/19 05:21: Glucometer 247H 10/28/19 05:22: White Blood Count 4.8, Red Blood Count 2.97L, Hemoglobin 9.5L, Hematocrit 29L, Mean Corpuscular Volume 96, Mean Corpuscular Hemoglobin 32, Mean Corpuscular Hemoglobin Concent 33, Red Cell Distribution Width 13.2, Platelet Count 206, Mean Platelet Volume 10.6H, Sodium Level 138, Potassium Level 4.8, Chloride Level 107, Carbon Dioxide Level 21, Anion Gap 10, Blood Urea Nitrogen 52H, Creatinine 1.49H, Estimat Glomerular Filtration Rate 34, BUN/Creatinine Ratio 35, Glucose Level 232H, Calcium Level 11.4H Microbiology 10/25/19 Urine Culture - Final, Complete Enterococcus faecalis A/P: Assessment/Dx: UTI sepsis, Acute on chronic kidney disease, Anemia, Sinus bradycardia, Hypertension, History of colon cancer and breast cancer. Plan: UTI sepsis, defer to the primary team. IV antibiotics. Acute on chronic kidney disease, IV fluids. Anemia, likely due to chronic kidney disease. Sinus bradycardia, rule out and currently in the 50s. Asymptomatic Atenolol discontinued. Echocardiogram showed normal LV function with mild pulmonary hypertension. Mild diastolic dysfunction. Hypertension, discontinue atenolol and consider another agent for hypertension. History of colon cancer and breast cancer. Thank you for your consultation. Please call me if you have any questions. Arleen Ha MD, FACP, FACC, FSCAI, FHRS, CCDS Interventional Cardiology Cardiac Electrophysiology Vascular Medicine and Endovascular Interventions Otis HA MD Oct 28, 2019 18:17
== END 2019-10-28 11:17 | DRG 683 ==
LOC: EDUNIT# 19:24 → ER 19:25 → 4TH 23:42
PROVIDERS: ADMIT Internal Medicine; ATTEND Internal Medicine
DX: N17.9 Acute kidney failure, unspecified (principal); N39.0 Urinary tract infection, site not specified; I12.9 Hypertensive chronic kidney disease with stage 1 through stage 4 chronic kidney disease, or unspecified chronic kidney disease; N18.3 Chronic kidney disease, stage 3 (moderate); R00.1 Bradycardia, unspecified; E86.0 Dehydration; R63.0 Anorexia; E11.65 Type 2 diabetes mellitus with hyperglycemia; K59.00 Constipation, unspecified; E66.9 Obesity, unspecified; E78.00 Pure hypercholesterolemia, unspecified; I69.811 Memory deficit following other cerebrovascular disease; F43.21 Adjustment disorder with depressed mood; M19.91 Primary osteoarthritis, unspecified site; M54.9 Dorsalgia, unspecified; J30.2 Other seasonal allergic rhinitis; R53.81 Other malaise; B95.2 Enterococcus as the cause of diseases classified elsewhere; Z68.35 Body mass index [BMI] 35.0-35.9, adult; Z85.038 Personal history of other malignant neoplasm of large intestine; Z90.49 Acquired absence of other specified parts of digestive tract; Z79.84 Long term (current) use of oral hypoglycemic drugs; Z85.3 Personal history of malignant neoplasm of breast; Z92.3 Personal history of irradiation
CPT/HCPCS: 36415; 74018; 80048; 80053; 81000; 82962; 83735; 84439; 84443; 85025; 85027; 87077; 87088; 87186; 93005; 93041; 93306

== ENCOUNTER 2019-10-28 11:40 | Inpatient (IN) | payer MEDICARE, BC ==
[~2019-10-28] VITALS: Ht 160 cm; Wt 96.8 kg
--- NOTE | 2019-10-28 10:55 | NUR ---
THE MED REC WAS COMPLETED WHEN THE PT WAS ON 4TH FLOOR ON 10-26-2019- PLEASE REFER TO THE NOTE ON THAT DATE FOR ADDITIONAL INFORMATION
--- NOTE | 2019-10-28 11:31 | NUR ---
EDI TCUKER admitted to room 228, with an admitting diagnosis of DEBILITY, on 10/28/19 from [facility]LOOR via WHEELCHAIR, accompanied by THERAPY. EDI TUCKER introduced to surroundings, call light, bed controls, phone, TV, temperature control, lights, meal times, smoking policy, visitor policy, side rail policy, bathrooms and showers. Patient Rights given to patient in the handbook. EDI TUCKER verbalizes understanding that [facility] is not responsible for the loss or damage to any personal effects or valuables that are kept in the patient's possession during their hospitalization. The following Patient Care Plans were discussed with the PATIENT: Discharge Planning, IMPAIRED MOBILITY, HIGH RISK: IMPAIRED SKIN INTEGRITY, HIGH RISK: INJURY, and KNOWLEDGE DEFICIT. EDI TUCKER verbalizes understanding of Interdisciplinary Patient Education. Patient received Patient Rights Booklet, which includes Privacy Act Statement and Data Collection Information Summary. Addendum: 10/28/19 at 1133 by CORNEL VEGA RN ACTUAL TIME- 1115.
[~2019-10-28 11:40] MED LIST changes: +ACET-2650 PO; +ACETAMINOPHEN 500 MG TAB (TYLENOL) PO PRN; +ALPRAZolam 0.25 MG (XANAX) TAB PO PRN; +ANTI1CAP2 PO; +ASPI-983 PO; +ATOR40TA70 PO; +BISACODYL 10 MG SUPP (DULCOLAX) PR PRN; +CALCIUM CARBONATE 500 MG (TUMS) TAB.CHEW PO PRN; +CARV12.53 PO; +CHOL20003 PO; +DOCUSATE SODIUM 100 MG (COLACE) CAP PO PRN; +DOCUSATE SODIUM 100 MG (COLACE) CAP PO SCH; +FLEET ENEMA ADULT 1 EA BTL PR PRN; +FURO40TA4 PO; +LACTULOSE SYRUP 10GM/15ML (ENULOSE) 30ML UDC PO PRN; +LEVE750T5 PO; +LOPERAMIDE 2 MG (IMODIUM) TABLET PO PRN; +MELATONIN 3 MG TABLET PO PRN; +OLME40TA18 PO; +ONDANSETRON 4 MG (ZOFRAN) ORAL DISSOLVE TAB PO PRN; +PANT40TA3 PO; +SENNA W/DOCUSATE (SENOKOT S) TABLET PO SCH; +SERT25TA5 PO; +diphenhydrAMINE 25 MG TAB (BENADRYL) PO PRN; +guaiFENesin/CODEINE (ROBITUSSIN AC) 10ML UDC PO PRN
[2019-10-28 11:53] VITALS: BP 182/71
--- NOTE | 2019-10-28 12:06 | Physical Therapy Evaluation ---
PT Evaluation-General Medical Diagnosis Admission Date Oct 28, 2019 at 11:52 Medical Diagnosis: UTI; CKD 3 Onset Date: Oct 28, 2019 Therapy Diagnosis Therapy Diagnosis: weakness; abn gait Height/Weight Height (Feet): 5 Height (Inches): 3.00 Weight (Pounds): 221 Weight (Ounces): 3.0 Precautions Precautions/Isolations: Standard Precautions Referral Physician: Leonardo Reason for Referral: Evaluation/Treatment Medical History Pertinent Medical History: CVA, DM, HTN, OA, Renal Insufficiency Additional Medical History Hx of colon and breast CA' DDD Current History Pt admitted to acute hospital and transferred to ARU post episode of ARF and hyperglycemia; also found to have a UTI and CKD stage 3. Transferred to ARU for skilled therapy services and continued medical management Reviewed History: Yes Social History Home: Multilevel (but stays on 1 floor) Current Living Status: Alone (Family checks her daily and very involved) Entry Into Home: Stairs With Railing PT Steps Into Home: 4 Prior Prior Level of Function SCALE: Activities may be completed with or without assistive devices. 5-Dfghnzwxnw-nrkmzws completes the activity by him/herself with no assistance from a helper. 5-Set-up or Clean-up Assistance-helper sets up or cleans up; patient completes activity. [place] assists only prior to or following the activity. 4-Supervision or Touching Assistance-helper provides verbal cues and/or touching/steadying and/or contact guard assistance as patient completes activity. Assistance may be provided throughout the activity or intermittently. 3-Partial/Moderate Assistance-helper does LESS THAN HALF the effort. [place] lifts, holds or supports trunk or limbs, but provides less than half the effort. 2-Substantial/Maximal Assistance-helper does MORE THAN HALF the effort. [place] lifts or holds trunk or limbs and provides more than half the effort. 9-Cesmfypky-hgpzte does ALL the effort. Patient does none of the effort to complete the activity. Or, the assistance of 2 or more helpers is required for the patient to complete the activity. If activity was not attempted, code reason: 7-Patient Refused. 9-Not Applicable-not attempted and the patient did not perform the activity before the current illness, exacerbation or injury. 10-Not Attempted due to Environmental Limitations-(lack of equipment, weather restraints, etc.). 88-Not Attempted due to Medical Conditions or Safety Concerns. Bed Mobility: 6 Transfers (B,C,W/C): 6 Gait: 6 Stairs: 5 Indoor Mobility (Ambulation): Independent Stairs: Needed Some Help Prior Devices Use: Walker occas uses a walker as well. PT Evaluation-Current Subjective Pt agreeable to PT. Reports she was discharged from a local shelter approx 1 month ago and has been home alone since. Reports her daughter in law has been helping as needed. Pain Numeric Pain Scale: 0-No Pain Pt/Family Goals Pt reports her goal is to return home as before; but notes, she's not sure if she will be able to do so. Objective Patient Orientation: Person, Place, Time, Situation ROM/Strength ROM Lower Extremities WNL Strength Lower Extremities B LE strength is grossly 4-/5 Integumentary/Posture Integumentary Refer to nursing notes for full assessment. Bowel Incontinence: No Bladder Incontinence: Yes Posture Rounded shoulders and forward head. Neuromuscular (Tone, Coordination, Reflexes) Intact and without noted deficit Sensory Vision: Functional Hearing: Functional Sensation Right Lower Extremit: Intact Sensation Left Lower Extremity: Intact Transfers Roll Left to Right (QC): 3 Sit to Lying (QC): 3 Lying to Sitting/Side of Bed(Q: 3 Sit to Stand (QC): 3 Chair/Xfs-uq-Ikwry Xfer(QC): 3 Toilet Transfer (QC): 3 Car Transfer (QC): 3 Generally min assist for all transfers with assist for her legs and cues to sequence. Gait Does the Patient Walk?: Yes Mode of Locomotion: Walk Anticipated Mode of Locomotion: Walk Walk 10 feet (QC): 3 Walk 50 ft with 2 Turns(QC): 3 Walk 150 ft (QC): 88 (unable to walk this distance safely) Walking 10ft/uneven surface-QC: 3 Gait Assistive Device: FWW Comments/Gait Description slow gait with decreased john Wheelchair Training Does the Pt Use a Wheelchair?: No Wheel 50 ft with 2 turns (QC): 9 Wheel 150 ft (QC): 9 Stairs 1 Step (curb) (QC): 3 4 Steps (QC): 88 12 Steps (QC): 88 Walking Assistive Device: Walker Balance Sitting Static: Good Sitting Dynamic: Good Standing Static: Fair Standing Dynamic: Fair Picking up an Object (QC): 88 (unsafe to attempt) Treatment Functional transfer and gait training; safety education Co treat with OT due to the need for 2 skilled clinicians due to the complexity of this patient. OT addressed self care and ADL's as PT addresseed functional balance in standing, transfers, hand/foot placement and safety. Assessment/Needs Pt admitted to ARU post acute hospital stay with noted LE weakness and decreased functional balance and activity tolerance. She requires assist with transfers, bed mobiltiy and gait. She will benefit from skilled PT to address these deficits and allow her to return home as before. Rehab Potential: Good PT Short Term Goals Short Term Goals Time Frame: Nov 04, 2019 Sit to lyin Lying to sitting on side of be: 4 Sit to stand: 4 Walk 150 feet: 4 PT Promotional Model Goals Penitentiary Goals PT Penitentiary Goals Time Frame: Nov 18, 2019 Roll Left & Right (QC): 6 Sit to Lying (QC): 6 Lying-Sitting on Side/Bed(QC): 6 Sit to Stand (QC): 6 Chair/Djs-tq-Srxao Xfer(QC): 6 Toilet Transfer (QC): 6 Car Transfer (QC): 6 Does the Patient Walk: Yes Walk 10 feet (QC): 6 Walk 50ft with 2 Turns (QC): 6 Walk 150 ft (QC): 6 Walking 10ft on Uneven Surface: 6 1 Step (curb) (QC): 5 4 Steps (QC): 5 12 Steps (QC): 9 Picking up an Object (QC): 4 Does the Pt use WC or Scooter?: No Wheel 50 feet with 2 turns (QC: 9 Wheel 150 feet: 9 PT Plan Problem List Problem List: Activity Tolerance, Functional Strength, Safety, Balance, Gait, Transfer, Bed Mobility Treatment/Plan Treatment Plan: Continue Plan of Care Treatment Plan: Bed Mobility, Education, Functional Activity Odalys, Functional Strength, Group Therapy, Gait, Safety, Therapeutic Exercise, Transfers Treatment Duration: Nov 18, 2019 Frequency: At least 5 of 7 days/Wk (IRF) Estimated Hrs Per Day: 1.5 hours per day Patient and/or Family Agrees t: Yes Safety Risks/Education Patient Education: Gait Training, Transfer Techniques, Safety Issues Teaching Recipient: Patient Teaching Methods: Demonstration, Discussion Response to Teaching: Reinforcement Needed Discharge Recommendations Therapy Discharge Recommendati: Post Acute PT Time/GCodes Time In: 1115 Time Out: 1240 (OT eval [id number]) Total Billed Treatment Time: 75 Total Billed Treatment visit EVM 15 FA 60 (co treat with OT 50 min) ANAI BOWEN PT Oct 28, 2019 12:06
--- OUTSIDE RECORDS SUMMARY | 2019-10-28 12:45 | XMS REPORT | Clinical Summary ---
Author Author [facility] Organization [facility] Address Unknown Phone Unavailable Care Team Providers Care C 13 Catapult Operator Name Role Phone Emerson Odom PCP Source Comments Some departments are not documenting in the electronic medical record. If you d o not see the information that you expected, contact Release of Information in [facility] Information Management department at [phone] for further assistan ce in locating additional records.[facility] Allergies No Known Allergies Medications End Date Status Medication Sig Dispensed Refills Start Date Active aspirin EC 81 mg tablet Take 81 mg by 0 mouth daily. Take with food. Active hydroCHLOROthiazide Take 25 mg by 0 (HYDRODIURIL) 25 mg mouth every tablet morning. Active glimepiride (AMARYL) 2 mg Take 2 mg by 0 tablet mouth every morning. Active olmesartan (BENICAR) 40 Take 40 mg by 0 mg tablet mouth daily. Active letrozole (FEMARA) 2.5 mg Take 2.5 mg 0 tablet by mouth daily. Active sertraline (ZOLOFT) 50 mg Take 50 mg by 0 tablet mouth daily. Active metFORMIN (GLUCOPHAGE) Take 1,000 mg 0 1,000 mg tablet by mouth twice daily with meals. Active atorvastatin (LIPITOR) 40 Take one 90 tablet 3 mg tablet tablet by 0 mouth daily. Active senna/docusate Take one 0 (SENOKOT-S) 8.6/50 mg tablet by 0 tablet mouth twice daily. Active levETIRAcetam (KEPPRA) Take one 60 tablet 2 750 mg tablet tablet by 0 mouth twice daily. Active fish oil /omega-3 fatty Take one 180 capsule 0 acids (FISH OIL) 340/1000 capsule by 0 mg capsule mouth twice daily with meals. Active cholecalciferol (VITAMIN Take one 90 tablet 0 0 D) 1,000 units tablet tablet by 0 mouth daily. Active ferrous sulfate (IRON) Take one 90 tablet 0 325 mg (65 mg iron) tablet by 0 tablet mouth every 48 hours. Active carvediloL (COREG) 12.5 Take one 180 tablet 0 mg tablet tablet by 0 mouth twice daily. Take with food. Active Problems Problem Noted Date Diabetes 05/13/2019 Hyperlipidemia 05/13/2019 Dysphagia 05/13/2019 Obesity 05/13/2019 Hypertension 05/13/2019 Acute ischemic stroke 05/11/2019 Family History Medical History Relation Name Comments Diabetes Brother Hypertension Brother Alcohol abuse Father Lung Disease Father Cancer-Uterine Mother Dementia Mother Diabetes Mother Stroke Mother Cancer-Breast Sister Relation Name Status Comments Brother Father Mother Sister Social History Date Tobacco Use Types Packs/Day Years Used Never Smoker Smokeless Tobacco: Never Used Drinks/Week oz/Week Comments Alcohol Use Not Currently Sex Assigned at Date Recorded Not on file Last Filed Vital Signs Reading Time Taken Comments Vital Sign 160/46 05/18/2019 9:19 AM WORKDAY CONSULTANT rn notified Blood Pressure 65 05/18/2019 9:19 AM WORKDAY CONSULTANT Pulse 36.3 C (97.3 F) 05/18/2019 9:19 AM WORKDAY CONSULTANT Temperature - - Respiratory Rate 96% 05/18/2019 9:19 AM WORKDAY CONSULTANT Oxygen Saturation - - Inhaled Oxygen Concentration 100.6 kg (221 lb 12.5 oz) 05/14/2019 7:33 AM WORKDAY CONSULTANT Weight 160 cm (5' 3") 05/12/2019 8:00 AM WORKDAY CONSULTANT Height 39.29 05/12/2019 8:00 AM WORKDAY CONSULTANT Body Mass Index Plan of Treatment Health Maintenance Due Date Last Done Comments MEDICARE ANNUAL WELLNESS 1940 VISIT DTAP/TDAP VACCINES (1 - 01/02/1960 Tdap) HEPATITIS C SCREENING 01/02/1960 PHYSICAL (COMPREHENSIVE) 01/02/1960 EXAM OSTEOPOROSIS 2007 SCREENING/MONITORING PNEUMONIA (PPSV23) 2007 VACCINE (1 of 1 - PPSV23) INFLUENZA VACCINE 12/16/2019 SHINGLES RECOMBINANT Completed 08/05/2018, VACCINE 03/02/2018 Goals Goal Patient Associated Recent Progress Patient-Stat Aut hor Goal Type Problems ed? 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 05/12/2019 12:26 AM Full Code 05/11/2019 11:46 PM Provider has discussed Code Status No, more discussi on w/Patient or Family? needed
--- OUTSIDE RECORDS SUMMARY | 2019-10-28 12:46 | XMS REPORT | Encounter Summary ---
Author Author [facility] Organization [facility] Address Unknown Phone Unavailable Care Team Providers Care Assistant Activities Director Name Role Phone Emerson Odom DO PCP Reason for Visit * Reason Comments Cardiac Device Remote 30day MCOT online enrollmen t Enrollment Remote Monitoring per Bio Tel Cancelled Deactivated Encounter Details Care Team Description Date Type Department Maximus Bartlett Cardiac Device Remote Enrollment (30day MCOT online enrollment); Remote Monitoring Deactivated (per Bio Tel Cancelled ) 05/18/[address] [facility] [address] [address] Social History Date Tobacco Use Types Packs/Day Years Used Never Smoker Smokeless Tobacco: Never Used Drinks/Week oz/Week Comments Alcohol Use Not Currently Sex Assigned at Date Recorded Not on file documented as of this encounter Functional Status Date of Assessment Functional Status Response 05/18/2019 Does the patient have a hearing impairment: No 05/18/2019 Does the patient have a visual impairment: No 05/18/2019 Does the patient have impaired ambulation: No 05/18/2019 Does the patient have an activity of daily living No (ADL) impairment: 05/18/2019 Does the patient have an instrumental activity of No daily living (IADL) impairment: Date of Assessment Cognitive Status Response 05/18/2019 Does the patient have a cognitive impairment: No documented as of this encounter Progress Notes * Papi Ruiz - 05/18/2019 2:35 PM CHILDREN'S AUTHOR June 14, 2019 MCOT ENROLLMENT CANCELLED Mary Ellenabida, This message is in reference to the below patient: Patient Name: Mariaa Mahoney Date of : [address] This is to notify [address] Kathy Hawley that the enrollment for the aforementione d patient has been cancelled due to no contact. We contacted the patient regular ly, but they failed to return our calls or activate on their own. * Maximus Bartlett - 05/18/2019 2:35 PM CHILDREN'S AUTHOR Ordering Physician:Dr.Aparna Hawley Type of Monitor:MCOT Length of Study:30days Dx:stroke Mailed to: [facility] Attn: Mariaa Mahoney [facility] [place] [address] Online enrollment confirmed DREN'S AUTHOR documented in this encounter Plan of Treatment Not on filedocumented as of this encounter Goals Goal Patient Associated Recent Progress Patient-Stat Aut hor Goal Type Problems ed? [facility] documented as of this encounter Visit Diagnoses Not on filedocumented in this encounter
--- OUTSIDE RECORDS SUMMARY | 2019-10-28 12:47 | XMS REPORT | Encounter Summary ---
Author Author [facility] Organization [facility] Address Unknown Phone Unavailable Care Team Providers Care Electronic Resources Librarian Name Role Phone PCP Unavailable Encounter Details Care Team Description Date Type Department 05/11/2019 [facility] [address] [address] Social History Date Tobacco Use Types Packs/Day Years Used Never Assessed Sex Assigned at Date Recorded Not on file documented as of this encounter Medications at Time of Discharge Start Date End Date Medication Sig Dispensed Refills aspirin EC 81 mg tablet Take 81 mg by 0 mouth daily. Take with food. 05/18/2019 atorvastatin (LIPITOR) 40 Take one 90 tablet 3 mg tablet tablet by mouth daily. 05/18/2019 carvediloL (COREG) 12.5 Take one 180 tablet 0 mg tablet tablet by mouth twice daily. Take with food. 05/18/2019 cholecalciferol (VITAMIN Take one 90 tablet 0 D) 1,000 units tablet tablet by mouth daily. 05/18/2019 ferrous sulfate (IRON) Take one 90 tablet 0 325 mg (65 mg iron) tablet by tablet mouth every 48 hours. 05/18/2019 fish oil /omega-3 fatty Take one 180 capsule 0 acids (FISH OIL) 340/1000 capsule by mg capsule mouth twice daily with meals. glimepiride (AMARYL) 2 mg Take 2 mg by 0 tablet mouth every morning. hydroCHLOROthiazide Take 25 mg by 0 (HYDRODIURIL) 25 mg mouth every tablet morning. letrozole (FEMARA) 2.5 mg Take 2.5 mg 0 tablet by mouth daily. 05/18/2019 levETIRAcetam (KEPPRA) Take one 60 tablet 2 750 mg tablet tablet by mouth twice daily. metFORMIN (GLUCOPHAGE) Take 1,000 mg 0 1,000 mg tablet by mouth twice daily with meals. olmesartan (BENICAR) 40 Take 40 mg by 0 mg tablet mouth daily. 05/18/2019 senna/docusate Take one 0 (SENOKOT-S) 8.6/50 mg tablet by tablet mouth twice daily. sertraline (ZOLOFT) 50 mg Take 50 mg by 0 tablet mouth daily. 05/12/2019 amLODIPine (NORVASC) 5 mg Take 5 mg by 0 tablet mouth daily. 05/18/2019 atenoloL (TENORMIN) 50 mg Take 50 mg by 0 tablet mouth twice daily. 05/18/2019 atorvastatin (LIPITOR) 20 Take 20 mg by 0 mg tablet mouth daily. 05/18/2019 docosahexaenoic acid/epa Take by 0 (FISH OIL PO) mouth. 05/18/2019 ergocalciferol (vitamin Take by 0 D2) (VITAMIN D PO) mouth. 05/18/2019 ferrous sulfate (IRON PO) Take by 0 mouth. 05/12/2019 glimepiride (AMARYL) 4 mg Take 2 mg by 0 tablet mouth daily with breakfast. 05/12/2019 olmesartan (BENICAR) 20 Take 20 mg by 0 mg tablet mouth daily. 05/12/2019 SITagliptin (JANUVIA) 100 Take 100 mg 0 mg tab tablet by mouth daily. 05/18/2019 traMADoL (ULTRAM) 50 mg Take 50 mg by 0 tablet mouth twice daily with meals. documented as of this encounter Plan of Treatment Not on filedocumented as of this encounter Goals Goal Patient Associated Recent Progress Patient-Stat Aut hor Goal Type Problems ed? [facility] documented as of this encounter Procedures Comments Procedure Name Priority Date/Time Associated Diag nosis CT HEAD EXTERNAL IMAGING Routine 05/11/2019 Diagn osis unknown 12:05 AM REGIONAL SALES DIRECTOR documented in this encounter Results * CT HEAD EXTERNAL IMAGING (05/11/2019 12:05 AM REGIONAL SALES DIRECTOR) Specimen Narrative Performed At This order has been auto finalized and does not contain a result. documented in this encounter Visit Diagnoses Diagnosis Diagnosis unknown Other unknown and unspecified cause of morbidity or mortality documented in this encounter
--- OUTSIDE RECORDS SUMMARY | 2019-10-28 12:47 | XMS REPORT | Encounter Summary ---
Author Author [facility] Organization [facility] Address Unknown Phone Unavailable Care Team Providers Care Carbonating Stone Cleaner Name Role Phone PCP Unavailable Encounter Details Care Team Description Date Type Department 05/11/2019 [facility] [address] [address] Social History Date Tobacco Use [...] Patient-Stat Aut hor Goal Type Problems ed? [facility] documented as of this encounter Procedures Comments Procedure Name Priority Date/Time Associated Diag nosis GENERAL RAD CHEST Routine 05/11/2019 Diagnosis un known EXTERNAL IMAGING 12:00 AM ASE CERTIFIED TECHNICIAN documented in this encounter Results * GENERAL RAD CHEST EXTERNAL IMAGING (05/11/2019 12:00 AM ASE CERTIFIED TECHNICIAN) Specimen Narrative Performed At This order has been auto finalized and does not contain a result. documented in this encounter Visit Diagnoses Diagnosis Diagnosis unknown Other unknown and unspecified cause of morbidity or mortality documented in this encounter
--- OUTSIDE RECORDS SUMMARY | 2019-10-28 12:47 | XMS REPORT | Encounter Summary ---
Author Author [facility] Organization [facility] Address Unknown Phone Unavailable Care Team Providers Care After School Program Teacher Name Role Phone Emerson Odom DO PCP Reason for Referral * Consult, Test & Treat (Routine) Referred By Contact Referred To Contact Status Reason Specialty Diagnoses / Procedures Macarena Rojas MD [address] [place] [id number] [facility] [address] [address] No Auth Needed Specialty Services Sleep Center Diagnoses Required Acute ischemic stroke (HCC) Scheduling Instructions Neck circumference may be a required measurement for sleep study prior authorization and/or claim payment. Has neck circumference been obtained? no * Consult, Test & Treat (Routine) Referred By Contact Referred To Contact Status Reason Specialty Diagnoses / Procedures Macarena Rojas MD [address] [place] [address] [facility] [address] [place] [phone] No Auth Needed Specialty Services Neurology Diagnoses Required Acute ischemic stroke (HCC) Scheduling Instructions Contact Phone Numbers for each area if questions arise: General: [phone] Epilepsy: Multiple Sclerosis: Parkinson's: 736 [facility]: Stroke & Neuromuscular: [place]: 3321 * Consult, Test & Treat (Routine) Referred By Contact Referred To Contact Status Reason Specialty Diagnoses / Procedures Macarena Rojas MD [address] [place] [address] New Request Specialty Services Diagnoses Required Acute ischemic stroke (HCC) * Consult, Test & Treat (Routine) Referred By Contact Referred To Contact Status Reason Specialty Diagnoses / Procedures Macarena Rojas MD [address] [place] [address] New Request Specialty Services Diagnoses Required Acute ischemic stroke (HCC) * Consult, Test & Treat (Routine) Referred By Contact Referred To Contact Status Reason Specialty Diagnoses / Procedures Macarena Rojas MD [address] [place] [address] New Request Specialty Services Diagnoses Required Acute ischemic stroke (HCC) Reason for Visit * Auth/Cert Referred By Contact Referred To Contact Status Reason Specialty Diagnoses / Procedures Diagnoses Acute ischemic stroke (HCC) Stroke Encounter Details Care Team Description [place] [address] [place] [address] [phone] [place] [address] [place] [address] [phone] [place] [address] [place] [address] [phone] [place] [address] [place] [address] [phone] Acute ischemic stroke (HCC) 05/11/2019 [facility] 05/18/2019 [address] [place] [address] Social History Date Tobacco Use Types Packs/Day Years Used Never Smoker Smokeless Tobacco: Never Used Drinks/Week oz/Week Comments Alcohol Use Not Currently Sex Assigned at Date Recorded Not on file documented as of this encounter Last Filed Vital Signs Reading Time Taken Comments Vital Sign 160/46 05/18/2019 9:19 AM ASSISTANT MANAGER rn notified Blood Pressure 65 05/18/2019 9:19 AM ASSISTANT MANAGER Pulse 36.3 C (97.3 F) 05/18/2019 9:19 AM ASSISTANT MANAGER Temperature - - Respiratory Rate 96% 05/18/2019 9:19 AM ASSISTANT MANAGER Oxygen Saturation - - Inhaled Oxygen Concentration 100.6 kg (221 lb 12.5 oz) 05/14/2019 7:33 AM ASSISTANT MANAGER Weight 160 cm (5' 3") 05/12/2019 8:00 AM ASSISTANT MANAGER Height 39.29 05/12/2019 8:00 AM ASSISTANT MANAGER Body Mass Index documented in this encounter Functional Status Date of Assessment [...] impairment: No documented as of this encounter Discharge Summaries * Macarena Rojas MD - 05/17/2019 1:55 PM ASSISTANT MANAGER Physician Discharge Summary Name: Mariaa Mahoney Date Of : 1940 Age: 79 years Admit date: 05/11/2019 Discharge date: 05/18/2019 Attending Physician: Macarena Rojas MD Service: Neurology Physician Summary completed by: Natalee North MD Reason for hospitalization: Acute ischemic stroke Significant PMH: Medical History: Diagnosis Date Arthritis Breast cancer (HCC) CAD (coronary artery disease) Chronic back pain Colon cancer (HCC) Depression Diabetes mellitus (HCC) HTN (hypertension) Hyperlipidemia Lung nodules Obesity Vitamin D deficiency Allergies: Patient has no known allergies. Admission Physical Exam notable for: GCS 13 (E3, M6, V4). Somnolent, rousable, follows commands intermittently if she is awake enough, answers some questions d epending on level of alertness, questions she does answer are correct, left gaze preference but able to cross midline, left facial droop, strength at least anti gravity throughout Admission NIHSS: 12 (LOC 2, gaze 1, face 1, RUE 1, LUE 1, RLE 2, LLE 2, dysarthr ia 1, extinction 1) Admission mRS: 3 Admission Lab/Radiology studies notable for: OSH CT Head with left frontal hypoattenuation Brief Hospital Course: The patient was admitted and the following issues were a ddressed during this hospitalization: Cryptogenic Left MCA (M2) Acute Ischemic Stroke - Embolic Stroke of Uncertain So urce, likely Cardioembolic Ms. Mahoney is a 79 year old woman with hypertension, hyperlipidemia, coronary art josué disease, diabetes, and obesity, along with a history of breast and colon can cer (s/p resection) who presented to an outside hospital on 05/11 with altered me ntal status (less interactive, not answering questions appropriately). A CT head was obtained and showed left frontal hypoattenuation concerning for stroke. A C TA Head and Neck was obtained with inconclusive results so patient was transferr ed to [facility] for further evaluation and management. Patient was stroke activated on arrival and initial NIHSS was 14. CTA Head and N jessy was repeated and CT Perfusion was performed. An M2 occlusion was identified but unfortunately, she had a large core infarct and thus was not a candidate for intervention. She was admitted to the Neuro-ICU for frequent vital sign monitor ing given need for permissive hypertension in the acute stroke setting and for f requent neurologic checks. She was stable for transfer to the Neurology Stroke S ervice the morning after her admission. An MRI was obtained, which showed a left MCA wedged shaped infarct as well as a subcortical acute infarct within the rig ht posterior parietal lobe. With ischemic strokes in multiple vascular territori es, the etiology was classified as an embolic stroke of uncertain source (ESUS), though likely cardioembolic. An echocardiogram was obtained that showed a normal ejection fraction, mildly dilated atria, and no inter-artial shunt. With suspi cion for a possible cardio-embolic source, Cardiac Electrophysiology was consult ed for evaluation of paroxysmal atrial fibrillation and she was discharged home with a cardiac event monitor. While admitted, she worked with therapies. PT and OT recommended inpatient rehab . Rehab medicine was consulted who determined patient was most appropriate for s ub-acute rehab. Patient was initially NPO given her aphasia and dysarthria. She was regularly assessed by speech therapy and her diet was advance per their gali mmendations. She was discharged on a pureed diet. Lethargy and Persistent Altered Mental Status Patient was lethargic at time of transfer out of the ICU. This was initially att ributed to fatigue after her stroke. She was trialed on modafinil but this was n ot tolerated due to hypertension. With continued lethargy, a metabolic work-up w as pursued. Ammonia, B12, folate, lipase, and troponin were obtained with result s only notable for a mild elevation in her ammonia (62). Her mental status was i mproving at the time of discharge though she was not yet back to her baseline. Seizures On hospital day 4 (05/15) patient experienced 2 events concerning for seizure. The first event was described as, "rhythmic lip smacking and eye movements with bli nking." Her blood pressure was significantly elevated at this time with systolic blood pressures ~200. With the second event, patient was sleeping when there was sudden cessation of snoring and opening of her eyes. She was unable to communi vinayak but did respond to her name and follow simple commands. She was loaded with Keppra and started on maintenance dosing. A routine EEG was obtained, which luanne wed focal slowing in the left hemisphere, consistent with her known stroke, as w ell as generalized slowing suggestive of a mild to moderate encephalopathy. Ther e was no epileptiform activity seen. Chronic Medical Problems (HTN, HLD, DM) and Secondary Stroke Prevention On admission, permissive hypertension was allowed. Her home blood pressure medic ations were slowly re-introduced (though received valsartan instead of olmesarta n - formulary). Decision was made to transition atenolol to carvedilol for jennifer r blood pressure control. Her anti-hypertensive regimen at discharge was carvedi lol 12.5 mg BID, HCTZ 25 mg daily, and olmesartan 40 mg daily. Her atorvastatin was increased from 20 mg to 40 mg. Home oral hypoglycemics were initially held a nd she was managed with sliding-scale insulin. With persistently high blood suga rs, metformin was re-introduced. Glimepiride was resumed at discharge. Lung Nodules, Tobaccosim When CTA Neck was obtained as part of her stroke work-up, there were a "few smal l nodules" noted in the lung apices. Given her history of smoking, a follow-up C T scan should be obtained in 12 months. A tobacco cessation consult was placed. Patient was not interested in tobacco cessation medication. Concern for Obstructive Sleep Apnea Patient initially had an oxygen requirement. There was clinical concern for obst ructive sleep apnea, so an outpatient referral for a sleep study was made at [facility] charge. History of Breast Cancer Letrozole held on admission due to concern for possible increased risk of stroke . This was discussed with pharmacy and after reviewing literature and in light o f the fact that her stroke is most likely cardioembolic in etiology, the medicat ion was resumed as benefits were felt to outweigh the risks. Condition at Discharge: Stable Discharge Exam: Awake and alert, interactive and following commands. Mild dysart hria. Subtle left facial droop. Strength 5/5 throughout, except RUE, which is 4/ 5. Discharge NIHSS: 4 (1 face, 1 LLE, 1 RLE, 1 dysarthria) Discharge mRS: 4 Discharge Diagnoses: Hospital Problems Active Problems * (Principal) Acute ischemic stroke (HCC) Diabetes (HCC) Hyperlipidemia Dysphagia Obesity Hypertension Surgical Procedures: None Significant Diagnostic Studies and Procedures: CT Head 05/12: Low-attenuation and loss of wagoner-white matter differentiation with in the left MCA territory (including inferior left frontal lobe, insular cortex, and left basal ganglia) compatible with areas of evolving acute infarct. No acu te intracranial hemorrhage. CTA Head and Neck 05/12: Abrupt occlusion of the anterior left M2 division. Mild mixed atherosclerotic plaque without significant carotid or vertebral stenosis a ccording to NASCET criteria. CT Perfusion 05/12: Small matched perfusion defect in the anterior left MCA adi tory compatible with completed infarct. Surrounding mismatch perfusion defect ap proximately equal in volume to area of core infarct, compatible with 50%ischemic penumbra. MRI 05/12: Acute wedge-shaped infarct in the left MCA territory corresponding to area of perfusion abnormality on recent CT. Punctate subcortical acute infarct w ithin the posterior right parietal lobe. No other infarcts identified. Mild supr atentorial white matter FLAIR hyperintensities, likely chronic small vessel isch emic changes. Echo 05/12: Left Ventricle Normal size and mass. Normal geometry. Normal ejection fraction. Cannot determine left ventricular diastolic dysfunction grade. Right Ventricle Normal size and ejection fraction. Left Atrium Mildly dilated. There is no interatrial shunting by color flow Doppl er and saline contrast studies. Right Atrium Mildly dilated. IVC/SVC Normal central venous pressure (0-5 mm Hg). Mitral Valve Normal valve structure. No stenosis. Trace regurgitation. Tricuspid Valve Normal valve structure. No stenosis. Trace regurgitation. Aortic Valve The aortic valve was not well seen. No stenosis. No regurgitation. Pulmonary The pulmonic valve was not seen well but no Doppler evidence of stenos is. No regurgitation. Aorta The aortic root and ascending aorta are normal in size. Pericardium No pericardial effusion. CT Head 05/15: Subacute left frontal lobe infarct, increased in size from the area of diffusion restriction on the MRI from May 12, 2019. Subtle internal hyp erdensities within the infarct likely petechial hemorrhagic transformation. No p arenchymal hematoma. Mild local mass effect without midline shift. Mild chronic microvascular ischemic changes. EEG 05/17: ABNORMALITIES: There is generalized theta/delta slowing seen throughout the recording period. There is continuous delta slowing seen in the left hemisp here, better noted in the left temporal region. This abnormal EEG is indicative of a structural abnormality in the left hemisphere as well as a mild to moderate encephalopathy. No epileptiform activity is seen. Pertinent Labs: LDL 120, A1c 8.4%, B12 512, Folate > 22.3, Ammonia 62, lipase 45, troponin < 0.01 Consults: Cardiology - EP and Rehabilitative Medicine Patient Disposition: Alf Facility Patient instructions/medications: AMB REFERRAL TO PHYSICAL THERAPY Referral Priority: Routine Referral Type: Consult, Test & Treat Referral Reason: Specialty Services Required Number of Visits Requested: 1 Expiration Date: 05/17/20 AMB REFERRAL TO OCCUPATIONAL THERAPY Referral Priority: Routine Referral Type: Consult, Test & Treat Referral Reason: Specialty Services Required Number of Visits Requested: 1 Expiration Date: 05/17/20 AMB REFERRAL TO SPEECH THERAPY Referral Priority: Routine Referral Type: Consult, Test & Treat Referral Reason: Specialty Services Required Number of Visits Requested: 1 Expiration Date: 05/17/20 AMB REFERRAL TO NEUROLOGY Referral Priority: Routine Referral Type: Consult, Test & Treat Referral Reason: Specialty Services Required Number of Visits Requested: 1 Expiration Date: 05/17/20 AMB REFERRAL FOR SLEEP STUDIES Referral Priority: Routine Referral Type: Consult, Test & Treat Referral Reason: Specialty Services Required Number of Visits Requested: 1 Expiration Date: 05/17/20 Activity as Tolerated It is important to keep increasing your activity level after you leave the hosp ital. Moving around can help prevent blood clots, lung infection (pneumonia) an d other problems. Gradually increasing the number of times you are up moving ar ound will help you return to your normal activity level more quickly. Continue to increase the number of times you are up to the chair and walking daily to ret urn to your normal activity level. Begin to work towards your normal activity le corie at discharge. Report These Signs and Symptoms STROKE Call 911 for the following symptoms: *Sudden numbness or weakness of the face, arm or leg, especially on one side of the body. *Sudden confusion, trouble speaking or understanding. *Sudden trouble seeing in one or both eyes. *Sudden trouble walking, dizziness, loss of balance or coordination. *Sudden, severe headache with no known cause. Risk Reduction Plan Stroke Personal Risk Factor Reduction Plan Take this sheet to your physician to show treatment recommendations Depression Risk Goal: It is common to experience depression after a stroke. Plan: If you experience symptoms of depression, please follow-up with your [facility] physician. High Blood Pressure Risk Goal: Keep blood pressure below 130/80 Your Numbers: BP Readings from Last 1 Encounters: 05/18/19 : (!) 160/46 Plan: High blood pressure is the single most important risk factor for stroke because it's the #1 cause of stroke. Take medication as prescribed and monitor your blood pressure. Atrial Fibrillation Risk Goal: This heart rhythm raises the risk of stroke. Anticoagulants may be pre scribed. Your Numbers: INR Date Value Ref Range Status 05/12/2019 1.2 0.8 - 1.2 Final Plan: Follow up with your Primary Care Physician to manage your anticoagulation therapy, if you have been diagnosed with atrial fibrillation. Abnormal lipids (fats in blood) Risk Goal: Total Cholesterol: <200 LDL ("bad" cholesterol): <100 HDL ("good" cholesterol): >40 for men, >50 for women Triglycerides: <150 Your Numbers: Cholesterol Date Value Ref Range Status 05/12/2019 202 (H) <200 MG/DL Final LDL Date Value Ref Range Status 05/12/2019 120 (H) <100 mg/dL Final HDL Date Value Ref Range Status 05/12/2019 36 (L) >40 MG/DL Final Triglycerides Date Value Ref Range Status 05/12/2019 249 (H) <150 MG/DL Final Plan: Diets high in saturated fat, trans fat and cholesterol can raise blood cho lesterol levels increasing your risk of stroke. Take medication as prescribed a nd eat a heart healthy, low sodium diet. Smoking Risk Goals: If you smoke, STOP! Plan: Smoking DOUBLES your risk of stroke. Quitting can greatly reduce your risk . To register for smoking cessation program call [phone] or visit www.smoke free.gov Diabetes Risk Goal: for Non-diabetic: Below 5.7% Goal for diabetic: Less than 7% Your Numbers: Hemoglobin A1C Date Value Ref Range Status 05/12/2019 8.4 (H) 4.0 - 6.0 % Final Comment: The ADA recommends that most patients with type 1 and type 2 diabetes maintain an A1c level <7%. Plan: If you have diabetes, even if treated, you are at an increased risk of str raymundo. To minimize your risk, make sure to follow-up with a primary care provider or title manager and check your blood sugars frequently. Alcohol use Risk Goal: Alcohol abuse can lead to stroke. Plan: For men, limit intake to no more than 2 drinks per day. For women, limit intake to no more than one drink per day. Weight Management Risk Goal: Healthy: BMI is 18.5 to 24.9 Overweight: BMI is 25 to 29.9 Obese: BMI is 30 or higher Your Numbers: Your BMI (Calculated): 38.97 Plan: If you have questions about your diet after you go home, you can call a nathalia borrego at [phone] Physical Activity Risk Goal: Stroke patients should have approval by a physician prior to beginning an exercise program. Plan: Try to get at least 30 minutes of moderate physical activity five days a w [place] or 20 minutes of vigorous physical activity three days a week with your doct or's approval. ACT F.A.S.T - Call 911 if Stroke Warning Signs Occur Face- Ask the person to smile. Does one side of the face droop? Arms- Ask the person to raise both arms. Does one arm drift downward? Speech- Ask the person to say a simple sentence. Time- If the person shows any of these symptoms, time is important. Call 911. Questions About Your Stay STANDARD For questions or concerns regarding your hospital stay: -DURING BUSINESS HOURS (8:00 AM - 4:30 PM): Call [phone] and ask to be transferred to your discharge attending clovis salazar. -AFTER BUSINESS HOURS (4:30 PM - 8:00 AM, on weekends, or holidays): Call [phone] and ask the mix house operator to page the on-call doctor for the discha rge attending physician. Discharging attending physician: MACARENA ROJAS [[id number]] Pureed Diet You should eat or drink foods that are easy to swallow because they are blended , whipped, or mashed to a "pudding-like" texture. All foods on this diet should be smooth and free of lumps. If you have questions about your diet after you go home, you can call a dietitia n at [phone]. Complete if patient is going to a Alf Facility I certify that the patient requires skilled care Yes The patient's stay is expected to be less than 30 days Yes I will be in charge of patient in retirement No Current Discharge Medication List START taking these medications Details carvediloL (COREG) 12.5 mg tablet Take one tablet by mouth twice daily. Take wit h food. Qty: 180 tablet PRESCRIPTION TYPE: No Print levETIRAcetam (KEPPRA) 750 mg tablet Take one tablet by mouth twice daily. Qty: 60 tablet, Refills: 2 PRESCRIPTION TYPE: No Print senna/docusate (SENOKOT-S) 8.6/50 mg tablet Take one tablet by mouth twice daily . PRESCRIPTION TYPE: OTC CONTINUE these medications which have been CHANGED or REFILLED Details atorvastatin (LIPITOR) 40 mg tablet Take one tablet by mouth daily. Qty: 90 tablet, Refills: 3 PRESCRIPTION TYPE: Print cholecalciferol (VITAMIN D) 1,000 units tablet Take one tablet by mouth daily. Qty: 90 tablet, Refills: 0 PRESCRIPTION TYPE: No Print ferrous sulfate (IRON) 325 mg (65 mg iron) tablet Take one tablet by mouth every 48 hours. Qty: 90 tablet, Refills: 0 PRESCRIPTION TYPE: Print fish oil /omega-3 fatty acids (FISH OIL) 340/1000 mg capsule Take one capsule by mouth twice daily with meals. Qty: 180 capsule, Refills: 0 PRESCRIPTION TYPE: Print CONTINUE these medications which have NOT CHANGED Details aspirin EC 81 mg tablet Take 81 mg by mouth daily. Take with food. PRESCRIPTION TYPE: Historical Med glimepiride (AMARYL) 2 mg tablet Take 2 mg by mouth every morning. PRESCRIPTION TYPE: Historical Med hydroCHLOROthiazide (HYDRODIURIL) 25 mg tablet Take 25 mg by mouth every morning . PRESCRIPTION TYPE: Historical Med letrozole (FEMARA) 2.5 mg tablet Take 2.5 mg by mouth daily. PRESCRIPTION TYPE: Historical Med metFORMIN (GLUCOPHAGE) 1,000 mg tablet Take 1,000 mg by mouth twice daily with m eals. PRESCRIPTION TYPE: Historical Med olmesartan (BENICAR) 40 mg tablet Take 40 mg by mouth daily. PRESCRIPTION TYPE: Historical Med sertraline (ZOLOFT) 50 mg tablet Take 50 mg by mouth daily. PRESCRIPTION TYPE: Historical Med The following medications were removed from your list. This list includes medic ations discontinued this stay and those removed from your prior med list in our system atenoloL (TENORMIN) 50 mg tablet traMADoL (ULTRAM) 50 mg tablet Pending items needing follow up: Neurology follow-up CT Chest to follow up lung nodules Cardiology follow-up for evaluation of paroxysmal a-fib Sleep study Thiamine level Signed: Natalee North MD 05/17/2019 cc: Primary Care Physician: Emerson Odom Referring physicians: Rubin Damon MD documented in this encounter Medications at Time of Discharge [...] 50 mg by 0 tablet mouth daily. documented as of this encounter Progress Notes * Alona Berry RN - 05/18/2019 12:56 PM ASSISTANT MANAGER ..Mariaa Mahoney discharged on 05/18/2019. . Discharge instructions reviewed with patient. Valuables returned: . Home medications: . Functional assessment at discharge complete: Yes . AVS reviewed with patient and placed in transfer packet. PIV removed. RN attempt to call facility to give report x4 with no answer. RN asked case maryann laird if there was another number to call. CM said she would try to call and give them this RN phone number. Pt left unit via EMS transport at 1400. RN to give report when facility is reached [id number] attempt to call to give report again x3 with no answer [id number] Mistry statement to RN that she is talking with facility right now and lawrence hair the facility phone number for RN and they will call RN for report [id number] attempt to give report again with no answer [id number] attempt to call report again with no answer STANT MANAGER * Macarena Rojas MD - 05/18/2019 7:30 AM ASSISTANT MANAGER Neurology Progress Note Name: Mariaa Mahoney Today's Date: 05/18/2019 Admission Date: 05/11/2019 LOS: 7 days Assessment/Plan: Principal Problem: Acute ischemic stroke (HCC) Active Problems: Diabetes (HCC) Hyperlipidemia Dysphagia Obesity Hypertension Ms. Mahoney is a 79 year old woman with hypertension, hyperlipidemia, coronary art josué disease, diabetes, and obesity, along with a history of breast and colon can cer who initially presented to an OSH on 05/11 with altered mental status. CT Hea d was obtained that showed left frontal hypoattenuation, concerning for stroke. CTA was obtained and inconclusive. She was transferred to [facility] were she was str raymundo activated with initial NIHSS of 14. CTA was repeated along with a perfusion scan. Results were notable for an left anterior M2 occlusion with large core inf arct, thus she was not a candidate for intervention. MRI was consistent with a l eft MCA infarct and also showed ischemia in the right posterior parietal lobe. G iven presence of strokes in multiple vascular territories the etiology of her st roke is best classified as ESUS, with a cardiac source favored. Her hospital cou rse has been complicated by persistent lethargy and concern for seizure. A routi ne EEG was done that did not demonstrated any focal epileptic activity and her m ental status has been showing steady improvement, thus she is safe for discharge to a long term facility today. Stroke Work-Up: -CT Head: Low-attenuation and loss of wagoner-white matter differentiation within t he left MCA territory (including inferior left frontal lobe, insular cortex, and left basal ganglia) compatible with areas of evolving acute infarct. No acute i ntracranial hemorrhage. -CTA Head and Neck: Abrupt occlusion of the anterior left M2 division. Mild mixe d atherosclerotic plaque without significant carotid or vertebral stenosis according to NASCET criteria. -CT Perfusion: Small matched perfusion defect in the anterior left MCA territory compatible with completed infarct. Surrounding mismatch perfusion defect approx imately equal in volume to area of core infarct, compatible with 50%ischemic pen umbra. -MRI: Acute wedge-shaped infarct in the left MCA territory corresponding to area of perfusion abnormality on recent CT. Punctate subcortical acute infarct withi n the posterior right parietal lobe. No other infarcts identified. Mild supraten torial white matter FLAIR hyperintensities, likely chronic small vessel ischemic changes. -LDL: 120 -A1c: 8.4% -Echo: Normal EF, no shunt, mild dilation of atria (left 3.64 cm) #Left anterior M2 and right posterior parietal ischemic strokes - ESUS, likely c ardio-embolic -PT and OT consulted and following - recommend inpatient rehab -Rehab medicine consulted - patient most appropriate for sub-acute rehab -Event monitor ordered for discharge. Patient has been seen by EP/Cards. #Concern for seizures - 05/15 had 2 episodes of altered awareness - 1: Lip smackin g, eye blinking. 2: Abrupt arousal from sleep, staring, unable to communicate, b ut able to follow commands. EEG consistent with focal lesion from stroke but no epileptiform discharges. -Continue Keppra 750 mg daily #Persistent lethargy - improving. Mildly elevated ammonia. Normal lipase, tropon in, B12, folate. -With improvement in mental status, will not pursue additional work-up. Anticipa te that she will continue to improve as she recovers from her stroke and transit ions out of the acute hospital setting. #Secondary Stroke Prevention #Hypertension #Hyperlipidemia #Type 2 DM -Aspirin 81 mg daily -Increase carvedilol to 12.5 mg BID -Continue HCTZ 25 mg daily -Continue Valsartan 320 mg daily -Hydralazine PRN -Continue atorvastatin 40 mg daily -Increase insulin to high dose correction factor -Continue metformin 1g BID #CARY - elevated BUN suggests likely pre-renal etiology -500 cc fluid bolus #Depression -Continue home sertraline FEN: 500 cc bolus as above; replace electrolytes as needed; Pureed diet with thi n liquids Bowel Regimen: Docusate BID, Doc/Senna BID, Bisacodyl suppository daily, milk of magnesia daily Pain & Sleep: Tylenol PRN PPx: SC Heparin and SCDs Code: Full Disposition: Discharge today to [facility] when medically stable . Patient seen and discussed with Dr. Rojas. Natalee North M.D. Child Neurology Resident | PGY3 ATTESTATION I personally performed the hull portions of the E/M visit, discussed case with re sident/PAOLO and concur with resident/PAOLO documentation of history, physical exam, assessment, and treatment plan unless otherwise noted. I evaluated the patient on 05/18/19 Macarena Rojas MD Agricultural Adviser Division of Inpatient Neurology and Stroke Subjective No acute events in the last 24 hours. Doing well this morning with no concerns. Would like to be able to sleep. Medications Scheduled Meds:aspirin chewable tablet 81 mg, 81 mg, Oral, QDAY atorvastatin (LIPITOR) tablet 40 mg, 40 mg, Oral, QDAY bisacodyL (DULCOLAX) rectal suppository 10 mg, 10 mg, Rectal, QDAY carvediloL (COREG) tablet 6.25 mg, 6.25 mg, Oral, BID docusate (COLACE) capsule 100 mg, 100 mg, Oral, BID heparin (porcine) PF syringe 5,000 Units, 5,000 Units, Subcutaneous, Q8H hydroCHLOROthiazide (HYDRODIURIL) tablet 25 mg, 25 mg, Oral, QDAY insulin aspart U-100 (NOVOLOG FLEXPEN) injection PEN 0-24 Units, 0-24 Units, Sub cutaneous, ACHS (22) levETIRAcetam (KEPPRA) tablet 750 mg, 750 mg, Oral, BID metFORMIN (GLUCOPHAGE) tablet 1,000 mg, 1,000 mg, Oral, BID w/meals milk of magnesia (CONC) oral suspension 10 mL, 10 mL, Oral, QDAY senna/docusate (SENOKOT-S) tablet 1 tablet, 1 tablet, Oral, BID sertraline (ZOLOFT) tablet 50 mg, 50 mg, Oral, QDAY valsartan (DIOVAN) tablet 320 mg, 320 mg, Oral, QDAY Continuous Infusions: PRN and Respiratory Meds:acetaminophen Q4H PRN, acetaminophen Q4H PRN, hydrALAZI NE TID PRN Objective Vital Signs: Last Filed Vital Signs: 24 Sandie r Range BP: 150/58 (05/17 509) Temp: 36.7 C (98 F) (05/17 509) Pulse: 72 (05/17 509) Respirations: 18 PER MINUTE (05/17 509) SpO2: 95 % (05/17 509) BP: (124-155)/(40-90) Temp: [36.3 C (97.3 F)-37.1 C (98.7 F)] Pulse: [69-80] Respirations: [16 PER MINUTE-20 PER MINUTE] SpO2: [95 %-100 %] Intensity Pain Scale (Self Report): Asleep (05/18/19 0421) Vitals: 05/12/19 0000 05/12/19 0800 05/14/19 0733 Weight: 100 kg (220 lb 7.4 oz) 99.8 kg (220 lb) 100.6 kg (221 lb 12.5 oz) Intake/Output Summary: (Last 24 hours) No intake or output data in the 24 hours ending 05/18/19 0730 Stool Occurrence: 1 Physical Exam Gen: No acute distress. HENT: Normocephalic, atraumatic Eyes: No drainage or discharge Resp: Normal work of breathing on room air Abd: Non-distended Ext: Warm and well perfused Neuro Exam Mental Status: More awake and alert this morning. Interactive and following comm ands the entire time the team was in the room. Speech: Mild dysarthria. CN: Pupils are equal and round. Extraocular eye movements are intact without nys tagmus. Facial sensation is intact to light touch in all divisions of the trigem inal nerve. Face is symmetric at rest with symmetric facial movements. Hearing i s grossly intact to conversation. Tongue is midline without fasciculations. Motor: Normal tone and bulk. No fasciculations, rigidity, spasticity, or abnorma l movements. Strength 5/5 throughout, except RUE, which is 4/5 Sensory: Grossly intact to light touch. Labs, Radiology, and other Diagnostics Studies: Reviewed with pertinent findings discussed above. * Dmitry Ware - 05/17/2019 5:28 PM ASSISTANT MANAGER EEG completed without complication STANT MANAGER * Mayelin Ortez, PT - 05/17/2019 11:50 AM ASSISTANT MANAGER PHYSICAL THERAPY PROGRESS NOTE Name: Mariaa Mahoney : 1940 Age: 79 y.o. Admission Date: 05/11/2019 LOS: 6 days Mobility Patient Turn/Position: Chair Progressive Mobility Level: Active transfer to chair Level of Assistance: Assist X2 Assistive Device: Hand Held Time Tolerated: 31-60 minutes Activity Limited By: Weakness;Lethargy Subjective Significant hospital events: Patient had colonoscopy in the morning of 05/11 and developed acute onset encephalopathy and R side neglect. CT H at OSH showed L f rontoparietal hypodensity. No tpa or thrombectomy. Mental / Cognitive Status: Lethargic;Cooperative;Follows Commands Persons Present: Occupational Therapist Pain: Patient has no complaint of pain Comments: pt continues to present with decreased lethergy and requires frequent verbal cues to remain on taks. Ambulation Assist: Independent Mobility at Household Level with Device Patient Owned Equipment: Single Point Cane;Roller Walker Home Situation: Lives Alone Type of Home: House Entry Stairs: 3-5 Stairs;Rail on 1 Side In-Home Stairs: Able to Live on One Level Bed Mobility/Transfer Bed Mobility: Supine to Sit: Minimal Assist;Verbal Cues;Head of Bed Elevated;Use of Rail;Requires Extra Time;Safety Considerations Transfer Type: Sit to/from Stand Transfer: Assistance Level: Moderate Assist;x2 People;From;Bed;To;Bed Side Chair Transfer: Assistive Device: Hand Hold Assist Transfers: Type Of Assistance: For Strength Deficit;For Balance;For Safety Consi derations Other Transfer Type: Stand Pivot Other Transfer: Assistance Level: Bed;To/From;Toilet;x2 People;Moderate Assist;M inimal Assist Other Transfer: Assistive Device: Hand Hold Assist Other Transfer: Type Of Assistance: Verbal Cues;For Safety Considerations;Requir es Extra Time;For Strength Deficit;For Balance End Of Activity Status: Up in Chair;Nursing Notified;Instructed Patient to Reque st Assist with Mobility;Instructed Patient to Use Call Light Balance Sitting Balance: Static Sitting Balance;No UE Support;Standby Assist Standing Balance: Static Standing Balance;2 UE support;Moderate Assist;x2 People Gait Gait Distance: (unable to attempt at this time) Assessment/Progress Impaired Mobility Due To: Impaired Balance;Decreased Activity Tolerance Assessment/Progress: Should Improve w/ Continued PT Goals Goal Formulation: With Patient/Family Time For Goal Achievement: 5 days Patient Will Go Supine To/From Sit: w/ Stand By Assist Patient Will Transfer Sit to Stand: w/ Stand By Assist Patient Will Ambulate: 151-200 Feet, w/ Stand By Assist Plan Treatment Interventions: Mobility Training Plan Frequency: 5 Days per Week PT Plan for Next Visit: Work on transfers; progress gait as able. PT Discharge Recommendations Recommendation: Inpatient setting Patient Currently Requires Physical Assist With: All mobility Therapist: Mayelin Ortez, PT Date: 05/17/2019 STANT MANAGER * Carmela Dawson, OT - 05/17/2019 11:41 AM ASSISTANT MANAGER OCCUPATIONAL THERAPY PROGRESS NOTE Name: Mariaa Mahoney : 1940 Age: 79 y.o. Admission Date: 05/11/2019 LOS: 6 days Mobility Patient Turn/Position: Chair Progressive Mobility Level: Active transfer to chair Level of Assistance: Assist X2 Assistive Device: Hand Held Time Tolerated: 31-60 minutes Activity Limited By: Weakness;Lethargy Subjective Pertinent Dx per Physician: 79 y.o female who presented to OSH for colonoscopy o n 05/11 and developed acute onset encephalopathy and R side neglect post procedur e. CT H at OSH showed L frontoparietal hypodensity & CTA H/N and perfusion were inconclusive. tPA not given. Repeat CTA H/N and4 perfusion at showed L anterior M2 occlusion with a perfusion mismatch with 50% ischemic penumbra. Decided not to pursue EVT due to evidence of large ischemic core on perfusion. brief seizure activity on 05/15. Precautions: Falls;Seizure Precautions Pain / Complaints: Patient has no c/o pain Objective Psychosocial Status: Lethargic Persons Present: Physical Therapist Home Living Type of Home: House Home Layout: Able to Live on Main Level w/Bedrm/Bathrm Access;Stairs to Enter w/ Rails Bathroom Shower / Tub: Tub/Shower Unit Bathroom Equipment: Shower Chair Home Equipment: Walker;Cane Prior Function Level Of Hudson: Independent with ADLs and functional transfers;Independen t with homemaking w/ ambulation Lives With: Alone Receives Help From: None Needed ADL's Where Assessed: Chair;In Bathroom;Edge of Bed Grooming Assist: Moderate Assist Grooming Deficits: Brushing Hair LE Dressing Assist: Maximum Assist LE Dressing Deficits: Don/Doff R Sock;Don/Doff L Sock Toileting Assist: Maximum Assist Toileting Deficits: Clothing Management Up;Clothing Management Down;Perineal Hyg iene;Grab Bar Use Functional Transfer Assist: Moderate Assist(x2) Functional Transfer Deficits: Toilet Transfer Comment: Pt completes supine to EOB with min assist for LE's. Pt able to sit EOB with SBA. Pt completes multiple sit to stands at EOB with mod assist x2. Pt eric ble to motor plan taking steps forward this date. Pt completes transfer to chair with mod x2. Chair wheeled into bathroom and pt completes transfer to toilet wi th mod x1 and a second person to assist with brief management. Pt requires total assist for hygiene. Pt completes transfer from toilet back to recliner with mod x1 and min x1. Pt left up in recliner at end of session with all needs met and chair alarm set. Cognition Overall Cognitive Status: Impaired Expression: Increased Time for Expression;Mumbling/Slurred Problem Solving: Decreased Judgment/Safety;Direction Following Assist Attention: Somnolent UE AROM Comment: Pt unable to hold wipe with R hand. Education Persons Educated: Patient Barriers To Learning: Cognitive Deficits;Decreased Alertness Interventions: Repetition of Instructions;Physical Cueing;Increase Volume of Ins truction Teaching Methods: Verbal Instruction Patient Response: Unable to Verb or Demo Understanding Topics: Role of OT, Goals for Therapy Goal Formulation: With Patient/Family Assessment Assessment: Decreased ADL Status;Decreased Safe/Judg during ADL;Decreased Cognit ion;Decreased Endurance;Visual Deficit;Decreased Fine Motor Coordination;Decreas ed Self-Care Trans;Decreased High-Level ADLs;Decreased UE Strength Plan OT Frequency: 5x/week OT Plan for Next Visit: Progress transfers, grooming in chair, visual scanning ADL Goals Patient Will Perform Grooming: w/ Minimum Assist;Standing at Sink Patient Will Perform LE Dressing: w/ Moderate Assist Functional Transfer Goals Pt Will Transfer To Bedside Commode: w/ Moderate Assist Vision Goals Pt Will Attend To R Of Body / Environment: 75% of the time, w/ Moderate Cues Pt Will Track R Past Midline: 2/5 Trials OT Discharge Recommendations Recommendation: Inpatient setting Patient Currently Requires Physical Assist With: All mobility;All personal care ADLs Therapist: SUKHDEEP Rhoades/Dru [id number] Date: 05/17/2019 STANT MANAGER * Lindsey Bales - 05/17/2019 10:20 AM ASSISTANT MANAGER SPEECH-LANGUAGE PATHOLOGY DAILY TREATMENT NOTE Patient seen 1x this date. Documentation reflects all daily treatment sessions. SUMMARY OF THERAPY SESSION: Pt seen by EDGER MACHINE HELPER for dysphagia tx. Pt presents with no patterns of oropharyngeal d ysphagia with [facility] soft solids. Session significantly limited however 2/2 lethar gy. Based on variability of alertness, pt remains at risk of aspiration with mor e advanced solids. Brief speech-language evaluation also completed; see below. RECOMMENDATIONS Thin liquids, puree solids Medications as tolerated (monitor for incidental pocketing) Aspiration precautions: *Patient must be sitting bolt upright at 90 degrees fo r PO intake *100% supervision *Small bites/sips *Slow rate Ongoing ST for dysphagia, language. Goal : Patient will participate in ongoing swallow assessment with minimal cues. [facility]ly met [facility] Pt demonstrated functional withdrawal of bolus from spoon . Timely rate of mastication/bolus manipulation and a/p transfer. Mild oral resi due observed resolved with liquid wash. No anterior spillage observed. Pt demons trated timely initiation of pharyngeal swallow with adequate hyolaryngeal excurs ion as perceived upon palpation. No overt s/sx of aspiration/penetration noted w ith any consistencies. Following bolus x4, pt demonstrating decreased alertness, falling asleep quickly and without warning. Trials terminated 2/2 safety despite pt tolerating well. Continue to address this goal Goal : Patient will tolerate current diet without impact on pulmonary status Met Comment: Per RN, pt doing well with current diet however continues to benefit fr om supervision as intermittently impacted by lethargy. Continue to address this goal PLAN / RECOMMENDATIONS: Continue treatment 3-5x/week EVALUATION SUMMARY Summary* Summary: A brief speech-language evaluation completed this date. Pt presents wit h no patterns of expressive/receptive language deficits however session signific antly limited by pt lethargy. Pt dozing off during tasks, quickly falling asleep (e.g., snoring noted) which was not resolved with max cues/stimulation. Will pl an to pursue ongoing language evaluation with more complex tasks as able. Prognosis: Good Plan: Continue Treatment 2-3x/week Results Reported to Physician: Yes(Via EMR) AUDITORY COMPREHENSION Severity: WNL - further assessment needed Comments*: Simple yes/no: 100% Abstract yes/no: 80% VERBAL EXPRESSION Severity: WNL - further assessment needed Comments*: Open ended: 100% Confrontation Namin% Repetition: 80%, pt drifted to sleep during task, unable to rouse READING COMPREHENSION Comments*: Not formally assessed 2/2 lethargy WRITTEN EXPRESSION Comments*: Not formally assessed 2/2 lethargy Objective* Relevant Med Background: Pt is a 79 y.o.femalewith h/o of HTN, HLD, DMII, hx of breast and colon cancer who is a transfer patient from [facility] due to concern for stroke. Patient had colonoscopy in the morning of 05/11 and d eveloped acute onset encephalopathy and R side neglect. CT H at OSH showed L fro ntoparietal hypodensity. tPA was not given due to changes on CT head. CTA H/N an d perfusion were inconclusive. Repeat CTA H/N and perfusion at showed L anter ior M2 occlusion with a perfusion mismatch with 50% ischemic penumbra. Decided n ot to pursue EVT due to evidence of large ischemic core on perfusion. Lives With: Alone Receives Help From: None Needed Psychosocial Status: Lethargic, Willing and Cooperative to Participate Persons Present: None MRI 05/12/2019 IMPRESSION 1. Acute wedge-shaped infarct in the left MCA territory corresponding to area of perfusion abnormality on recent CT. 2. Punctate subcortical acute infarct within the posterior right parietal lobe. 3. No other infarcts identified. 4. Mild supratentorial white matter FLAIR hyperintensities, likely chronic small vessel ischemic changes. Subjective* Pain: Patient has no complaint of pain Pain Level Current*: No pain Trach Presence: No Feeding Tube Present During Eval: None Education* Persons Educated: Patient Barriers To Learning: Decreased Alertness, Family Not Present Interventions: Repetition of Instructions, Staff Educated Teaching Methods: Verbal Topics: Aphasia Patient Response: More Instruction Required Goal Formulation: Patient Unable to participate in Goal Setting Speech Language Goals* Goal : Pt will participate in ongoing assessment of speech-language given mod cu es. Therapist: Lindsey Vasquez MA, CCC-EDGER MACHINE HELPER Voalte: [id number] Date: 05/17/2019 STANT MANAGER * Macarena Rojas MD - 05/17/2019 7:00 AM ASSISTANT MANAGER Neurology Progress Note Name: Mariaa Mahoney Today's Date: 05/17/2019 Admission Date: 05/11/2019 LOS: 6 days Assessment/Plan: Principal Problem: Acute ischemic stroke (HCC) Active Problems: Diabetes (HCC) Hyperlipidemia Dysphagia Obesity Hypertension Ms. Mahoney is a 79 year old woman with hypertension, hyperlipidemia, coronary art josué disease, diabetes, and obesity, along with a history of breast and colon can cer who initially presented to an OSH on 05/11 with altered mental status. CT Hea d was obtained that showed left frontal hypoattenuation, concerning for stroke. CTA was obtained and inconclusive. She was transferred to [facility] were she was str raymundo activated with initial NIHSS of 14. CTA was repeated along with a perfusion scan. Results were notable for an left anterior M2 occlusion with large core inf arct, thus she was not a candidate for intervention. MRI was consistent with a l eft MCA infarct and also showed ischemia in the right posterior parietal lobe. G iven presence of strokes in multiple vascular territories the etiology of her st roke is best classified as ESUS, with a cardiac source favored. Her hospital cou rse has been complicated by persistent lethargy and concern for seizure. She rem ains admitted for further evaluation and management of these. Stroke Work-Up: -CT Head: Low-attenuation and loss of wagoner-white matter differentiation within t he left MCA territory (including inferior left frontal lobe, insular cortex, and left basal ganglia) compatible with areas of evolving acute infarct. No acute i ntracranial hemorrhage. -CTA Head and Neck: Abrupt occlusion of the anterior left M2 division. Mild mixe d atherosclerotic plaque without significant carotid or vertebral stenosis according to NASCET criteria. -CT Perfusion: Small matched perfusion defect in the anterior left MCA territory compatible with completed infarct. Surrounding mismatch perfusion defect approx imately equal in volume to area of core infarct, compatible with 50%ischemic pen umbra. -MRI: Acute wedge-shaped infarct in the left MCA territory corresponding to area of perfusion abnormality on recent CT. Punctate subcortical acute infarct within the posterior right parietal lobe. No other infarcts identified. Mild supraten torial white matter FLAIR hyperintensities, likely chronic small vessel ischemic changes. -LDL: 120 -A1c: 8.4% -Echo: Normal EF, no shunt, mild dilation of atria (left 3.64 cm) #Left anterior M2 and right posterior parietal ischemic strokes - ESUS, likely c ardio-embolic -PT and OT consulted and following - recommend inpatient rehab -Rehab medicine consulted - patient most appropriate for sub-acute rehab -Consult Cardiology-EP for evaluation of paroxysmal a-fib and event monitor at d ischarge #Concern for seizures - 05/15 had 2 episodes of altered awareness - 1: Lip smackin g, eye blinking. 2: Abrupt arousal from sleep, staring, unable to communicate, b ut able to follow commands -Routine EEG -Continue Keppra 750 mg daily #Persistent lethargy - sleeping most of the day, falls back asleep frequently du ring assessments -Seizure evaluation and management as above -Laboratory assessment for reversible causes: ammonia, B12, thiamine, folate, li pase, troponin -If labs are unrevealing and lethargy persists, will consider LP and/or repeat i maging #Secondary Stroke Prevention #Hypertension #Hyperlipidemia #Type 2 DM -Aspirin 81 mg daily -Discontinue atenolol -Start carvedilol 6.25 mg BID -Continue HCTZ 25 mg daily -Continue Valsartan 320 mg daily -Hydralazine PRN -Continue atorvastatin 40 mg daily -Increase insulin to high dose correction factor -Continue metformin 1g BID #CARY - elevated BUN suggests likely pre-renal etiology -500 cc fluid bolus -Encourage adequate PO intake #Depression -Continue home sertraline FEN: 500 cc bolus as above; replace electrolytes as needed; Pureed diet with thi n liquids Bowel Regimen: Docusate BID, Doc/Senna BID, Bisacodyl suppository daily, milk of magnesia daily Pain & Sleep: Tylenol PRN PPx: SC Heparin and SCDs Code: Full Disposition: Continue inpatient admission to Neurology. Planning for discharge t o [facility] when medically stable. Patient seen and discussed with Dr. Rojas. Natalee North M.D. Child Neurology Resident | PGY3 ATTESTATION I personally performed the hull portions of the E/M visit, discussed case with re sident/PAOLO and concur with resident/PAOLO documentation of history, physical exam, assessment, and treatment plan unless otherwise noted. I personally reviewed the CTP. I evaluated the patient on 05/16/29. ESUS will need linq device. Consider MAGALIS too. Macarena Rojas MD Agricultural Adviser Vascular & Cognitive Neurology Subjective Ms. Mahoney had 2 episodes concerning for seizure yesterday described as eye flutt ering and lip smacking. The first lasted about 1 minute and the second about 30 seconds. She was loaded with Keppra and started on maintenance dosing. This morn ing patient has no concerns. Medications Scheduled Meds:aspirin chewable tablet 81 mg, 81 mg, Oral, QDAY atenoloL (TENORMIN) tablet 25 mg, 25 mg, Oral, QDAY atorvastatin (LIPITOR) tablet 40 mg, 40 mg, Oral, QDAY bisacodyL (DULCOLAX) rectal suppository 10 mg, 10 mg, Rectal, QDAY docusate (COLACE) capsule 100 mg, 100 mg, Oral, BID heparin (porcine) PF syringe 5,000 Units, 5,000 Units, Subcutaneous, Q8H hydroCHLOROthiazide (HYDRODIURIL) tablet 25 mg, 25 mg, Oral, QDAY insulin aspart U-100 (NOVOLOG FLEXPEN) injection PEN 0-12 Units, 0-12 Units, Sub cutaneous, ACHS (22) levETIRAcetam (KEPPRA) 750 mg in sodium chloride 0.9% (NS) 100 mL IVPB, 750 mg, Intravenous, BID metFORMIN (GLUCOPHAGE) tablet 1,000 mg, 1,000 mg, Oral, BID w/meals milk of magnesia (CONC) oral suspension 10 mL, 10 mL, Oral, QDAY senna/docusate (SENOKOT-S) tablet 1 tablet, 1 tablet, Oral, BID sertraline (ZOLOFT) tablet 50 mg, 50 mg, Oral, QDAY valsartan (DIOVAN) tablet 320 mg, 320 mg, Oral, QDAY Continuous Infusions: PRN and Respiratory Meds:acetaminophen Q4H PRN, acetaminophen Q4H PRN, hydrALAZI NE TID PRN Objective Vital Signs: Last Filed Vital Signs: 24 Asndie r Range BP: 142/47 (05/17 511) Temp: 37.2 C (98.9 F) (05/17 511) Pulse: 67 (05/17 511) Respirations: 25 PER MINUTE (05/17 511) SpO2: 95 % (05/17 511) BP: (122-202)/(34-61) Temp: [36.8 C (98.2 F)-37.7 C (99.9 F)] Pulse: [58-74] Respirations: [18 PER MINUTE-26 PER MINUTE] SpO2: [93 %-95 %] Intensity Pain Scale (Self Report): 5 (05/17/19 0247) Vitals: 05/12/19 0000 05/12/19 0800 05/14/19 0733 Weight: 100 kg (220 lb 7.4 oz) 99.8 kg (220 lb) 100.6 kg (221 lb 12.5 oz) Intake/Output Summary: (Last 24 hours) No intake or output data in the 24 hours ending 05/17/19 0700 Stool Occurrence: 0 Physical Exam Gen: No acute distress. HENT: Normocephalic, atraumatic Eyes: No drainage or discharge Resp: Normal work of breathing on room air Abd: Non-distended Ext: Warm and well perfused Neuro Exam Mental Status: Drowsy, awakens to light touch and voice, but frequently drifts b ack to sleep requiring repetitive stimulation to remain engaged with exam. Answe ring questions appropriately, following commands. Oriented to person, place, and situation. Speech: Mild dysarthria. Intact naming. CN: Pupils are equal and round. Extraocular eye movements are intact without nys tagmus. Facial sensation is intact to light touch in all divisions of the trigem inal nerve. Face is symmetric at rest with symmetric facial movements. Hearing i s grossly intact to conversation. Tongue is midline without fasciculations. Motor: Normal tone and bulk. No fasciculations, rigidity, spasticity, or abnorma l movements. Strength 5/5 throughout, except RUE, which is 4/5 Sensory: Grossly intact to light touch. Reflexes: 2/4 Brachial and patellar Labs, Radiology, and other Diagnostics Studies: Reviewed with pertinent findings discussed above. STANT MANAGER * Carlos Lorenzana MBBS - 05/16/2019 3:54 PM ASSISTANT MANAGER Vascular Neurology Progress Note Admission Date: 05/11/2019 LOS: 5 days Principal Problem: Acute ischemic stroke (HCC) Active Problems: Diabetes (HCC) Hyperlipidemia Dysphagia Obesity Hypertension Assessment: Mariaa Mahoney is a 79 y.o. female with stroke risk factors including HTN, HLD, DM2 , breast/colon cancer who presented to [facility] as a transfer from [facility] for sudden onset of lethargy, AMS, and difficulty arousing. Her initial NIH was 14 with the last known well reportedly being 1730 on 05/11/19. OSH CT head r evealed a left frontoparietal hypodensity. tPA was not given due to CT head and neck changes. OSH CTA head/neck were inconclusive. A repeat CTA head/neck were c ompleted upon arrival to [facility] and showed a left anterior M2 occlusion with a per fusion mismatch and 50% ischemic penumbra. Thrombectomy was not pursed due to th e evidence of large ischemic core on perfusion scan. MRI head performed on 05/12/19 showed acute wedge-shaped infarct in the left MCA territory corresponding to the area previously noted on CT head. Additionally, a punctate subcortical acute infarct within the posterior right parietal lobe was noted. Echocardiogram was performed on 05/12/19 which revealed a normal ejection fraction of 65%, normal right ventricle size and function, no significant valvu lar disease, mildly dilated left atrium of 3.64cm, and no intracardiac thrombus. Stroke Etiology: Cryptogenic, however suspect cardioembolic given multiple strok e territories. Current Exam: Alert, oriented x3, dysarthric. Pupils equal, round, reactive to l ight. No visual field defects or cuts. Sensation intact but extinction deficits noted in lower extremities. Strength 5/5 LUE/LLE/RLE. RUE 3/5. Ataxia present in RUE during finger to nose exam. Plan: Acute Ischemic Stroke - CT head: left anterior M2 occlusion - MRI: left MCA wedged shaped infarct as well as subcortical acute infarct withi n posterior right parietal lobe - Echocardiogram: No intracardiac thrombus, normal LV, no significant valvular d isease, mildy dilated LA (3.64cm) - ASA 81mg - Event monitor ordered since high suspicion of cardiembolism Epilepsy : new diagnosis - New onset Seizures X 2 on 05/15 - From stroke or PRES from HTN - CT head after seizures : no significant bleed or new hypodensitities - Keppra 1g IV load followed by 750 mg BID started on 05/15 Fatigue after stroke > Modafinil 50mg BID was was started on but d/ed on 05/15 due to HTN HLD: - LDL 120 - Continue atorvastatin 40mg daily DM2: - A1C 8.4 - Currently on mid dose correction factor - Continue home dose metformin HTN: - SBP's 160's-180's (goal <130/80) - Atenolol 25 mg Qday, SIX PACK PACKER 50 mg BID, was held initially due to bradycardia - Restarted SIX PACK PACKER olmesartan 40mg daily - Restarted SIX PACK PACKER hydrochlorothiazide 25mg daily - PRN hydralazine for SBP >160 - Cardiac event monitor ordered for further evaluation of paroxsymal atrial fibr illation FEN: - Pureed diet (dysphagia level 1) w/ thickened liquids - Continue speech therapy and will upgrade diet as tolerated - Electrolyte replacement PRN. Daily AM labs Ppx: - SCD's and 5000 units SubQ heparin for DVT prophylaxis - Continue bowel regimen w/ dulcolax, colace, and milk of mag Dispo: Will discharge to medical lodges in [facility] on Friday at 1000 vi [facility] ambulance. Patient was seen and discussed with ALIE Banks PGY3- Neurology Pager [phone] Subjective: NAEO. Somnolent to lethargic on exam. Would wake enough to voice and interact. Noted per family in the room she has been sleepy and less participati on with therapies. Discussed modafinil, will start today. Scheduled Meds:aspirin chewable tablet 81 mg, 81 mg, Oral, QDAY atenoloL (TENORMIN) tablet 25 mg, 25 mg, Oral, QDAY atorvastatin (LIPITOR) tablet 40 mg, 40 mg, Oral, QDAY bisacodyL (DULCOLAX) rectal suppository 10 mg, 10 mg, Rectal, QDAY docusate (COLACE) capsule 100 mg, 100 mg, Oral, BID heparin (porcine) PF syringe 5,000 Units, 5,000 Units, Subcutaneous, Q8H hydroCHLOROthiazide (HYDRODIURIL) tablet 25 mg, 25 mg, Oral, QDAY insulin aspart U-100 (NOVOLOG FLEXPEN) injection PEN 0-12 Units, 0-12 Units, Sub cutaneous, ACHS (22) levETIRAcetam (KEPPRA) 750 mg in sodium chloride 0.9% (NS) 100 mL IVPB, 750 mg, Intravenous, BID metFORMIN (GLUCOPHAGE) tablet 1,000 mg, 1,000 mg, Oral, BID w/meals milk of magnesia (CONC) oral suspension 10 mL, 10 mL, Oral, QDAY senna/docusate (SENOKOT-S) tablet 1 tablet, 1 tablet, Oral, BID sertraline (ZOLOFT) tablet 50 mg, 50 mg, Oral, QDAY valsartan (DIOVAN) tablet 320 mg, 320 mg, Oral, QDAY Continuous Infusions: PRN and Respiratory Meds:acetaminophen Q4H PRN, acetaminophen Q4H PRN, hydrALAZI NE TID PRN Vital Signs: Last Filed in 24 hours Vital Signs: 24 hour Range BP: 137/40 (05/15 1338) Temp: 37.7 C (99.9 F) (05/15 1338) Pulse: 67 (05/15 1338) Respirations: 24 PER MINUTE (05/15 1338) SpO2: 93 % (05/15 1338) BP: (137-202)/(40-61) Temp: [36.7 C (98 F)-37.7 C (99.9 F)] Pulse: [57-67] Respirations: [20 PER MINUTE-26 PER MINUTE] SpO2: [93 %-97 %] General physical exam: HEENT: normocephalic, eyes open with no discharge, nares patent, oropharynx is c lear with no lesions, palate intact CV: regular rate, distal pulses palpable Chest: normal configuration, equal chest rise bilaterally Ab: soft, non-tender, no masses, no organomegaly Skin: no rashes or lesions Neuro exam: MS: lethargic, oriented x3 Speech: dysarthric CN II-XII intact Strength: moves all 4 limbs spontaneously, 5/5 LUE/LLE/RLE. 3/5 RUE Sensation: Reportedly intact to touch Lab/Radiology/Other Diagnostic Tests: Hematology: Lab Results Component Value Date HGB 10.5 05/16/2019 HCT 30.1 05/16/2019 PLTCT 266 05/16/2019 WBC 6.0 05/16/2019 NEUT 84 05/16/2019 ANC 5.10 05/16/2019 ALC 0.30 05/16/2019 STEFANO 8 05/16/2019 AMC 0.50 05/16/2019 ABC 0.00 05/16/2019 MCV 93.8 05/16/2019 MCHC 34.7 05/16/2019 MPV 7.3 05/16/2019 RDW 13.9 05/16/2019 , Coagulation: Lab Results Component Value Date INR 1.2 05/12/2019 , General Chemistry: Lab Results Component Value Date NA 135 05/16/2019 K 4.0 05/16/2019 CL 100 05/16/2019 GAP 10 05/16/2019 BUN 23 05/16/2019 CR 0.92 05/16/2019 GLU 301 05/16/2019 CA 10.5 05/16/2019 ALBUMIN 3.4 05/16/2019 OBSCA 1.26 05/12/2019 MG 1.6 05/16/2019 TOTBILI 0.5 05/16/2019 , HgbA1C: Lab Results Component Value Date HGBA1C 8.4 05/12/2019 and Lipid Profile: Lab Results Component Value Date CHOL 202 05/12/2019 TRIG 249 05/12/2019 HDL 36 05/12/2019 LDL 120 05/12/2019 VLDL 50 05/12/2019 CTA head: 1. Abrupt occlusion of the anterior left M2 division. 2. Low-attenuation and loss of wagoner-white matter differentiation within the le ft MCA territory (including inferior left frontal lobe, insular cortex, and left basal ganglia) compatible with areas of evolving acute infarct. 3. No acute intracranial hemorrhage. CTA neck: 1. Mild mixed atherosclerotic plaque without significant carotid or vertebral stenosis according to NASCET criteria. 2. Few small nodules in the visualized lung apices. In a high-risk patient, fo llow-up CT of the chest in 12 months could be obtained for further evaluation. I n a low-risk patient, no further follow-up is required. CT perfusion: 1. Small matched perfusion defect in the anterior left MCA territory compatibl e with completed infarct. 2. Surrounding mismatch perfusion defect approximately equal in volume to area of core infarct, compatible with 50%ischemic penumbra. MRI head: 1. Acute wedge-shaped infarct in the left MCA territory corresponding to area of perfusion abnormality on recent CT. 2. Punctate subcortical acute infarct within the posterior right parietal lobe . 3. No other infarcts identified. 4. Mild supratentorial white matter FLAIR hyperintensities, likely chronic sma ll vessel ischemic changes. Echocardiogram: Normal left ventricular systolic function with an EF of 65%. Normal right ventricular size and function Estimated peak systolic PA pressure = 37 mmHg No evidence of a Patent Foramen Ovale (PFO) or intracardiac shunt as assessed by both color doppler and contrast saline injection (with and without valsalva). No significant valvular disease identified. No pericardial effusion ALIE Copeland Vascular Neurology STANT MANAGER Associated attestation - Kathy Hawley MD - 05/16/2019 8:31 PM ASSISTANT MANAGER Neurology Attending Attestation Patient has been seen and evaluated on attending rounds; hull elements of the his tory and physical examination were repeated in order to confirm findings. Goals and plan of care was discussed with the patient. I have reviewed the above note and generally agree with the findings, plan and documentation. I spent a total of 40 minutes in patient care today, with 25 minutes spent counseling the patien t and coordinating care. Elevated BPs overnight and this AM, likely 2/2 to trail of modafinil (2 doses to ion). Will d/c this medication and monitor for BP improvement. Brief <1 min seizure x 2 this AM, Keppra 750 mg BID. No further episodes noted Repeat CT shows previous evolving stroke, larger in size area of hypodensity klaudia n previous CT scan. Wean off supplemental O2 today. Anemia--stable 10-11 Rehab when clinically stable, 1-2 days Kathy Hawley MD Vascular Neurology * Janette Borrego RN - 05/16/2019 8:02 AM ASSISTANT MANAGER This RN responded to staff emergency. Pt found having seizure like activity with rhythmic lip smaking and eye movements with blinking lasting less than 1 minute. BP 202/59 and 193/53. Neuro informed and at bedside. New orders placed. 0818 Second event lasting 30 sec. Pt opened eyes while sleeping, stopped snorin g and looked at niece then this RN. Eyes open (where as before she was having tr ouble keeping them open) and unable to communicate. Pt would follow commands an d responded to name. BP WNL this time. Keppra started, [facility] STANT [facility]NAGER * Aiden St MD - 05/15/2019 5:01 PM ASSISTANT MANAGER Vascular Neurology Progress Note Admission Date: 05/11/2019 LOS: 4 days Principal Problem: Acute ischemic stroke (HCC) Active Problems: Diabetes (HCC) Hyperlipidemia Dysphagia Obesity Hypertension Assessment: Mariaa Mahoney is a 79 y.o. female with stroke risk factors including HTN, HLD, DM2 , breast/colon cancer who presented to [facility] as a transfer from [facility] for sudden onset of lethargy, AMS, and difficulty arousing. Her initial NIH was 14 with the last known well reportedly being 1730 on 05/11/19. OSH CT head r evealed a left frontoparietal hypodensity. tPA was not given due to CT head and neck changes. OSH CTA head/neck were inconclusive. A repeat CTA head/neck were c ompleted upon arrival to [facility] and showed a left anterior M2 occlusion with a per fusion mismatch and 50% ischemic penumbra. Thrombectomy was not pursed due to th e evidence of large ischemic core on perfusion scan. MRI head performed on 05/12/19 showed acute wedge-shaped infarct in the left MCA territory corresponding to the area previously noted on CT head. Additionally, a punctate subcortical acute infarct within the posterior right parietal lobe was noted. Echocardiogram was performed on 05/12/19 which revealed a normal ejection fraction of 65%, normal right ventricle size and function, no significant valvu lar disease, mildly dilated left atrium of 3.64cm, and no intracardiac thrombus. Stroke Etiology: Cryptogenic, however suspect cardioembolic given multiple strok e territories. Current Exam: Alert, oriented x3, dysarthric. Pupils equal, round, reactive to l ight. No visual field defects or cuts. Sensation intact but extinction deficits noted in lower extremities. Strength 5/5 LUE/LLE/RLE. RUE 3/5. Ataxia present in RUE during finger to nose exam. Plan: Acute Ischemic Stroke - CT head: left anterior M2 occlusion - MRI: left MCA wedged shaped infarct as well as subcortical acute infarct withi n posterior right parietal lobe - Echocardiogram: No intracardiac thrombus, normal LV, no significant valvular d isease, mildy dilated LA (3.64cm) - ASA 81mg Fatigue after stroke > Start Modafinil 50mg BID HLD: - LDL 120 - Continue atorvastatin 40mg daily DM2: - A1C 8.4 - Currently on mid dose correction factor - Continue home dose metformin HTN: - SBP's 160's-180's (goal <130/80) - atenolol dose has been held due to bradycardia - Restarted SIX PACK PACKER olmesartan 40mg daily - Restarted SIX PACK PACKER hydrochlorothiazide 25mg daily - Discontinued lisinopril - PRN hydralazine for SBP >180 - Cardiac event monitor to be ordered upon discharge for further evaluation of p aroxsymal atrial fibrillation FEN: - Pureed diet (dysphagia level 1) w/ thickened liquids - Continue speech therapy and will upgrade diet as tolerated - Electrolyte replacement PRN. Daily AM labs Ppx: - SCD's and 5000 units SubQ heparin for DVT prophylaxis - Continue bowel regimen w/ dulcolax, colace, and milk of mag Dispo: Will discharge to medical lodges in [facility] on Friday at [address] ambulance. Patient was seen and discussed with . Subjective: NAEO. Somnolent to lethargic on exam. Would wake enough to voice and interact. Noted per family in the room she has been sleepy and less participati on with therapies. Discussed modafinil, will start today. Scheduled Meds:aspirin chewable tablet 81 mg, 81 mg, Oral, QDAY atenoloL (TENORMIN) tablet 12.5 mg, 12.5 mg, Oral, QDAY atorvastatin (LIPITOR) tablet 40 mg, 40 mg, Oral, QDAY bisacodyL (DULCOLAX) rectal suppository 10 mg, 10 mg, Rectal, QDAY docusate (COLACE) capsule 100 mg, 100 mg, Oral, BID heparin (porcine) PF syringe 5,000 Units, 5,000 Units, Subcutaneous, Q8H hydroCHLOROthiazide (HYDRODIURIL) tablet 25 mg, 25 mg, Oral, QDAY insulin aspart U-100 (NOVOLOG FLEXPEN) injection PEN 0-12 Units, 0-12 Units, Sub cutaneous, ACHS (22) metFORMIN (GLUCOPHAGE) tablet 1,000 mg, 1,000 mg, Oral, BID w/meals milk of magnesia (CONC) oral suspension 10 mL, 10 mL, Oral, QDAY modafiniL (PROVIGIL) tablet 50 mg, 50 mg, Oral, BID senna/docusate (SENOKOT-S) tablet 1 tablet, 1 tablet, Oral, BID sertraline (ZOLOFT) tablet 50 mg, 50 mg, Oral, QDAY valsartan (DIOVAN) tablet 320 mg, 320 mg, Oral, QDAY Continuous Infusions: PRN and Respiratory Meds:acetaminophen Q4H PRN, acetaminophen Q4H PRN, hydrALAZI NE TID PRN Vital Signs: Last Filed in 24 hours Vital Signs: 24 hour Range BP: 139/49 (1310) Temp: 37 C (98.6 F) (1310) Pulse: 70 (1310) Respirations: 20 PER MINUTE (1310) SpO2: 95 % (1310) BP: (127-144)/(41-57) Temp: [36.4 C (97.5 F)-37.1 C (98.7 F)] Pulse: [66-81] Respirations: [18 PER MINUTE-20 PER MINUTE] SpO2: [95 %-100 %] General physical exam: HEENT: normocephalic, eyes open with no discharge, nares patent, oropharynx is c lear with no lesions, palate intact CV: regular rate, distal pulses palpable Chest: normal configuration, equal chest rise bilaterally Ab: soft, non-tender, no masses, no organomegaly Skin: no rashes or lesions Neuro exam: MS: lethargic, oriented x3 Speech: dysarthric CN II-XII intact Strength: moves all 4 limbs spontaneously, 5/5 LUE/LLE/RLE. 3/5 RUE Sensation: Reportedly intact to touch Lab/Radiology/Other Diagnostic Tests: Hematology: Lab Results Component Value Date HGB 11.1 05/15/2019 HCT 31.6 05/15/2019 PLTCT 264 05/15/2019 WBC 5.3 05/15/2019 NEUT 79 05/15/2019 ANC 4.30 05/15/2019 ALC 0.50 05/15/2019 STEFANO 10 05/15/2019 AMC 0.50 05/15/2019 ABC 0.00 05/15/2019 MCV 92.9 05/15/2019 MCHC 35.0 05/15/2019 MPV 7.3 05/15/2019 RDW 14.1 05/15/2019 , Coagulation: Lab Results Component Value Date INR 1.2 05/12/2019 , General Chemistry: Lab Results Component Value Date NA 136 05/15/2019 K 3.7 05/15/2019 CL 101 05/15/2019 GAP 10 05/15/2019 BUN 27 05/15/2019 CR 1.02 05/15/2019 GLU 268 05/15/2019 CA 10.6 05/15/2019 ALBUMIN 3.3 05/12/2019 OBSCA 1.26 05/12/2019 MG 2.7 05/12/2019 TOTBILI 0.6 05/12/2019 , HgbA1C: Lab Results Component Value Date HGBA1C 8.4 05/12/2019 and Lipid Profile: Lab Results Component Value Date CHOL 202 05/12/2019 TRIG 249 05/12/2019 HDL 36 05/12/2019 LDL 120 05/12/2019 VLDL 50 05/12/2019 CTA head: 1. Abrupt occlusion of the anterior left M2 division. 2. Low-attenuation and loss of wagoner-white matter differentiation within the le ft MCA territory (including inferior left frontal lobe, insular cortex, and left basal ganglia) compatible with areas of evolving acute infarct. 3. No acute intracranial hemorrhage. CTA neck: 1. Mild mixed atherosclerotic plaque without significant carotid or vertebral stenosis according to NASCET criteria. 2. Few small nodules in the visualized lung apices. In a high-risk patient, fo llow-up CT of the chest in 12 months could be obtained for further evaluation. I n a low-risk patient, no further follow-up is required. CT perfusion: 1. Small matched perfusion defect in the anterior left MCA territory compatibl e with completed infarct. 2. Surrounding mismatch perfusion defect approximately equal in volume to area of core infarct, compatible with 50%ischemic penumbra. MRI head: 1. Acute wedge-shaped infarct in the left MCA territory corresponding to area of perfusion abnormality on recent CT. 2. Punctate subcortical acute infarct within the posterior right parietal lobe . 3. No other infarcts identified. 4. Mild supratentorial white matter FLAIR hyperintensities, likely chronic sma ll vessel ischemic changes. Echocardiogram: Normal left ventricular systolic function with an EF of 65%. Normal right ventricular size and function Estimated peak systolic PA pressure = 37 mmHg No evidence of a Patent Foramen Ovale (PFO) or intracardiac shunt as assessed by both color doppler and contrast saline injection (with and without valsalva). No significant valvular disease identified. No pericardial effusion Aiden St MD Vascular Neurology STANT MANAGER Associated attestation - Kathy Hawley MD - 05/16/2019 11:21 AM ASSISTANT MANAGER Neurology Attending Attestation Patient has been seen and evaluated on attending rounds; hull elements of the his tory and physical examination were repeated in order to confirm findings. Goals and plan of care was discussed with the patient. I have reviewed the above note and generally agree with the findings, plan and documentation. I spent a total of 40 minutes in patient care today, with 25 minutes spent counseling the patien t and coordinating care. Stable overnight, concern for excessive somnolence per her family; she is easily awakable and interactive, but has been sleeping large portions of the day. Will restart her home atenolol at low dose, she is nearly at BP goals consistent ly <140. Discussed with pt and family at bedside, can give trial of Provigil to assist wi th daytime somnolence; did discuss if she were to have potential side effects castellon ch as elevated blood pressures that this would subsequently be discontinued. Plan for rehab on Friday as possible. Event monitor at discharge Kathy Hawley MD Vascular Neurology * Janette Borrego RN - 05/14/2019 7:20 PM ASSISTANT MANAGER Patient arrived to room # (6910) via bed accompanied by RN. Patient transferred to the bed with assistance. Bedside safety checks completed. Initial patient ass essment completed. Refer to flowsheet for details. Admission skin assessment completed with: Erin BRYANT Pressure injury present on arrival?: No 1. Head/Face/Neck: No 2. Trunk/Back: No 3. Upper Extremities: No 4. Lower Extremities: No 5. Pelvic/Coccyx: No 6. Assessed for device associated injury? Yes 7. Malnutrition Screening Tool (Nursing Nutrition Assessment) Completed? Yes See Doc Flowsheet for additional wound details. INTERVENTIONS: STANT MANAGER * Mary Shankar MS,CCC-EDGER MACHINE HELPER - 05/14/2019 2:02 PM ASSISTANT MANAGER SPEECH-LANGUAGE PATHOLOGY NO TREATMENT NOTE Attempted to see patient for dysphagia management and speech/language evaluation at this time. Upon my arrival patient asleep in bedside chair. Patient was nnamdi able to voice although remained very lethargic; she requested to use the bathroo m. EDGER MACHINE HELPER assisted RN in transferring patient back to bed via hal lift for use of bedpan. Patient snoring loudly upon transfer back to bed. May return later today to re-attempt as schedule allows. Therapist: Mary Shankar MS,CCC-EDGER MACHINE HELPER, Voalte ext. [phone] Date: 05/14/2019 STANT MANAGER * Zachary Titus APRN-NP - 05/14/2019 12:54 PM ASSISTANT MANAGER Vascular Neurology Progress Note Admission Date: 05/11/2019 LOS: 3 days Principal Problem: Acute ischemic stroke (HCC) Active Problems: Diabetes (HCC) Hyperlipidemia Dysphagia Obesity Hypertension Assessment: Mariaa Mahoney is a 79 y.o. female with stroke risk factors including HTN, HLD, DM2 , breast/colon cancer who presented to [facility] as a transfer from [facility] for sudden onset of lethargy, AMS, and difficulty arousing. Her initial NIH was 14 with the last known well reportedly being 1730 on 05/11/19. OSH CT head r evealed a left frontoparietal hypodensity. tPA was not given due to CT head and neck changes. OSH CTA head/neck were inconclusive. A repeat CTA head/neck were c ompleted upon arrival to [facility] and showed a left anterior M2 occlusion with a per fusion mismatch and 50% ischemic penumbra. Thrombectomy was not pursed due to th e evidence of large ischemic core on perfusion scan. MRI head performed on 05/12/19 showed acute wedge-shaped infarct in the left MCA territory corresponding to the area previously noted on CT head. Additionally, a punctate subcortical acute infarct within the posterior right parietal lobe was noted. Echocardiogram was performed on 05/12/19 which revealed a normal ejection fraction of 65%, normal right ventricle size and function, no significant valvu lar disease, mildly dilated left atrium of 3.64cm, and no intracardiac thrombus. Stroke Etiology: Cryptogenic, however suspect cardioembolic given multiple strok e territories. Current Exam: Alert, oriented x3, dysarthric. Pupils equal, round, reactive to l ight. No visual field defects or cuts. Sensation intact but extinction deficits noted in lower extremities. Strength 5/5 LUE/LLE/RLE. RUE 3/5. Ataxia present in RUE during finger to nose exam. Plan: Acute Ischemic Stroke - CT head: left anterior M2 occlusion - MRI: left MCA wedged shaped infarct as well as subcortical acute infarct withi n posterior right parietal lobe - Echocardiogram: No intracardiac thrombus, normal LV, no significant valvular d isease, mildy dilated LA (3.64cm) - ASA 81mg HLD: - LDL 120 - Continue atorvastatin 40mg daily DM2: - A1C 8.4 - Currently on mid dose correction factor - Continue home dose metformin HTN: - SBP's 160's-180's (goal <130/80) - atenolol dose has been held due to bradycardia - Restarted SIX PACK PACKER olmesartan 40mg daily - Restarted SIX PACK PACKER hydrochlorothiazide 25mg daily - Discontinued lisinopril - PRN hydralazine for SBP >180 - Cardiac event monitor to be ordered upon discharge for further evaluation of p aroxsymal atrial fibrillation FEN: - Pureed diet (dysphagia level 1) w/ thickened liquids - Continue speech therapy and will upgrade diet as tolerated - Electrolyte replacement PRN. Daily AM labs Ppx: - SCD's and 5000 units SubQ heparin for DVT prophylaxis - Continue bowel regimen w/ dulcolax, colace, and milk of mag Dispo: Will discharge to [facility] on Friday at 1000 vi a ambulance. Patient was seen and discussed with today. Subjective: Ms. Mahoney this morning is more alert. She denies pain or discomfort. Family is present at bedside. Discussed with both patient and family plan moving forward and continued need for physical therapy. Discussed that transportation via ambulance will occur on Friday at approximately 1000 to her inpatient rehab ilitation facility. Scheduled Meds:aspirin chewable tablet 81 mg, 81 mg, Oral, QDAY atorvastatin (LIPITOR) tablet 40 mg, 40 mg, Oral, QDAY bisacodyL (DULCOLAX) rectal suppository 10 mg, 10 mg, Rectal, QDAY docusate (COLACE) capsule 100 mg, 100 mg, Oral, BID heparin (porcine) PF syringe 5,000 Units, 5,000 Units, Subcutaneous, Q8H hydroCHLOROthiazide (HYDRODIURIL) tablet 25 mg, 25 mg, Oral, QDAY insulin aspart U-100 (NOVOLOG FLEXPEN) injection PEN 0-12 Units, 0-12 Units, Sub cutaneous, ACHS (22) lisinopriL (ZESTRIL) tablet 20 mg, 20 mg, Oral, QDAY metFORMIN (GLUCOPHAGE) tablet 1,000 mg, 1,000 mg, Oral, BID w/meals milk of magnesia (CONC) oral suspension 10 mL, 10 mL, Oral, QDAY senna/docusate (SENOKOT-S) tablet 1 tablet, 1 tablet, Oral, BID sertraline (ZOLOFT) tablet 50 mg, 50 mg, Oral, QDAY Continuous Infusions: PRN and Respiratory Meds:acetaminophen Q4H PRN, acetaminophen Q4H PRN, hydrALAZI NE Q6H PRN Vital Signs: Last Filed in 24 hours Vital Signs: 24 hour Range BP: 154/40 (05/14 1056) Temp: 36.9 C (98.4 F) (05/14 1056) Pulse: 68 (05/14 1056) Respirations: 18 PER MINUTE (05/14 1056) SpO2: 98 % (05/14 105) SpO2 Pulse: 66 (05/14 0400) BP: (154-206)/(40-71) Temp: [36.8 C (98.2 F)-37.4 C (99.4 F)] Pulse: [65-76] Respirations: [13 PER MINUTE-20 PER MINUTE] SpO2: [97 %-99 %] General physical exam: HEENT: normocephalic, eyes open with no discharge, nares patent, oropharynx is c lear with no lesions, palate intact CV: regular rate, distal pulses palpable Chest: normal configuration, equal chest rise bilaterally Ab: soft, non-tender, no masses, no organomegaly Skin: no rashes or lesions Neuro exam: MS: lethargic, oriented x3 Speech: dysarthric CN II-XII intact Strength: moves all 4 limbs spontaneously, 5/5 LUE/LLE/RLE. 3/5 RUE Sensation: Reportedly intact to touch DTRs: 2/4 throughout, toes downgoing Lab/Radiology/Other Diagnostic Tests: Hematology: Lab Results Component Value Date HGB 10.6 05/14/2019 HCT 30.9 05/14/2019 PLTCT 216 05/14/2019 WBC 6.7 05/14/2019 NEUT 79 05/14/2019 ANC 5.30 05/14/2019 ALC 0.50 05/14/2019 STEFANO 11 05/14/2019 AMC 0.80 05/14/2019 ABC 0.10 05/14/2019 MCV 94.5 05/14/2019 MCHC 34.3 05/14/2019 MPV 7.8 05/14/2019 RDW 13.8 05/14/2019 , Coagulation: Lab Results Component Value Date INR 1.2 05/12/2019 , General Chemistry: Lab Results Component Value Date NA 133 05/14/2019 K 3.7 05/14/2019 CL 100 05/14/2019 GAP 10 05/14/2019 BUN 16 05/14/2019 CR 0.90 05/14/2019 GLU 229 05/14/2019 CA 10.1 05/14/2019 ALBUMIN 3.3 05/12/2019 OBSCA 1.26 05/12/2019 MG 2.7 05/12/2019 TOTBILI 0.6 05/12/2019 , HgbA1C: Lab Results Component Value Date HGBA1C 8.4 05/12/2019 and Lipid Profile: Lab Results Component Value Date CHOL 202 05/12/2019 TRIG 249 05/12/2019 HDL 36 05/12/2019 LDL 120 05/12/2019 VLDL 50 05/12/2019 CTA head: 1. Abrupt occlusion of the anterior left M2 division. 2. Low-attenuation and loss of wagoner-white matter differentiation within the le ft MCA territory (including inferior left frontal lobe, insular cortex, and left basal ganglia) compatible with areas of evolving acute infarct. 3. No acute intracranial hemorrhage. CTA neck: 1. Mild mixed atherosclerotic plaque without significant carotid or vertebral stenosis according to NASCET criteria. 2. Few small nodules in the visualized lung apices. In a high-risk patient, fo llow-up CT of the chest in 12 months could be obtained for further evaluation. I n a low-risk patient, no further follow-up is required. CT perfusion: 1. Small matched perfusion defect in the anterior left MCA territory compatibl e with completed infarct. 2. Surrounding mismatch perfusion defect approximately equal in volume to area of core infarct, compatible with 50%ischemic penumbra. MRI head: 1. Acute wedge-shaped infarct in the left MCA territory corresponding to area of perfusion abnormality on recent CT. 2. Punctate subcortical acute infarct within the posterior right parietal lobe . 3. No other infarcts identified. 4. Mild supratentorial white matter FLAIR hyperintensities, likely chronic sma ll vessel ischemic changes. Echocardiogram: Normal left ventricular systolic function with an EF of 65%. Normal right ventricular size and function Estimated peak systolic PA pressure = 37 mmHg No evidence of a Patent Foramen Ovale (PFO) or intracardiac shunt as assessed by both color doppler and contrast saline injection (with and without valsalva). No significant valvular disease identified. No pericardial effusion Zachary Titus APRN-TRIMMER AND BORER MACHINE OPERATOR Vascular Neurology [id number] STANT MANAGER Associated attestation - Jasvir Helton MD - 05/14/2019 5:53 PM ASSISTANT MANAGER ATTESTATION I personally performed the hull portions of the E/M visit, discussed case with re sident and concur with resident documentation of history, physical exam, assessm ent, and treatment plan unless otherwise noted. I personally reviewed vitals, labs. Pertinent neuroradiological imagings were vi ewed. The patient presents with (HPI) 79-year-old female presented with right-sided we akness, found to have left anterior division MCA territory ischemic stroke with a left M2 branch occlusion. On examination: more alert, mildly lethargic, able to move both right upper and lower extremities today at 4-/5. CTA of the head and neck showed the above-mentioned occlusion and no extracrania l significant stenosis, MRI as mentioned, LDL 120. Etiology embolic stroke of undetermined source. Plan: cont aspirin 81 mg, atorvastatin 40mg daily, will need to discharge on ryley nt monitor. Resume home olmesartan for BP control. Dispo on Mon. Staff name: Jasvir Helton MD Date: 05/14/2019 * Joleen Gurrola, OT - 05/14/2019 9:43 AM ASSISTANT MANAGER OCCUPATIONAL THERAPY PROGRESS NOTE Name: Mariaa Mahoney : 1940 Age: 79 y.o. Admission Date: 05/11/2019 LOS: 3 days Mobility Patient Turn/Position: Chair Progressive Mobility Level: Walk in hallway Distance Walked (feet): 25 ft(x2) Level of Assistance: Assist X1 Assistive Device: Hand Held;Other (Rail) Time Tolerated: 11-30 minutes Activity Limited By: Weakness Subjective Pertinent Dx per Physician: 79 y.o female who presented to OSH for colonoscopy o n 05/11 and developed acute onset encephalopathy and R side neglect post procedur e. CT H at OSH showed L frontoparietal hypodensity & CTA H/N and perfusion were inconclusive. tPA not given. Repeat CTA H/N and4 perfusion at showed L anterior M2 occlusion with a perfusion mismatch with 50% ischemic penumbra. Decided not to pursue EVT due to evidence of large ischemic core on perfusion. Precautions: Falls Pain / Complaints: Patient has no c/o pain Objective Psychosocial Status: Willing and Cooperative to Participate Persons Present: Occupational Therapist;Student ADL's Where Assessed: Standing at Sink;Chair Grooming Assist: Moderate Assist Grooming Deficits: Denture Care;Brushing Hair;Steadying;Verbal Cueing(hand over hand assist to incorporate R hand) Functional Transfer Assist: Minimal Assist Functional Transfer Deficits: Sit to Stand at sink and at railing in hallway;Morgan ps along rail Cognition Overall Cognitive Status: Impaired Expression: Increased Time for Expression;Mumbling/Slurred Cognition Comment: Patient frequently closed eyes, required stimulation to stay awake, more so at beginning of session. Education Persons Educated: Patient Barriers To Learning: Cognitive Deficits;Decreased Alertness Interventions: Repetition of Instructions;Physical Cueing;Increase Volume of Ins truction Teaching Methods: Verbal Instruction Patient Response: Unable to Verb or Demo Understanding Topics: Role of OT, Goals for Therapy Goal Formulation: With Patient/Family Assessment Assessment: Decreased ADL Status;Decreased Safe/Judg during ADL;Decreased Cognit ion;Decreased Endurance;Visual Deficit;Decreased Fine Motor Coordination;Decreas ed Self-Care Trans;Decreased High-Level ADLs;Decreased UE Strength Prognosis: Fair;w/Cont OT s/p Acute Discharge Plan OT Frequency: 5x/week OT Plan for Next Visit: Progress transfers, grooming in chair, visual scanning ADL Goals Patient Will Perform Grooming: w/ Minimum Assist;Standing at Sink Patient Will Perform LE Dressing: w/ Moderate Assist Functional Transfer Goals Pt Will Transfer To Bedside Commode: w/ Moderate Assist Vision Goals Pt Will Attend To R Of Body / Environment: 75% of the time, w/ Moderate Cues Pt Will Track R Past Midline: 2/5 Trials OT Discharge Recommendations Recommendation: Inpatient setting Patient Currently Requires Physical Assist With: All mobility;All personal care ADLs;All home functioning ADLs Therapist: SUKHDEEP Dial/Dru [id number] Date: 05/14/2019 STANT MANAGER * Sejal Fountain, PT - 05/14/2019 9:43 AM ASSISTANT MANAGER PHYSICAL THERAPY PROGRESS NOTE Name: Mariaa Mahoney : 1940 Age: 79 y.o. Admission Date: 05/11/2019 LOS: 3 days Mobility Patient Turn/Position: Chair Progressive Mobility Level: Walk in hallway Distance Walked (feet): 25 ft(x2) Level of Assistance: Assist X1 Assistive Device: Hand Held;Other (Comment)(Rail) Time Tolerated: 11-30 minutes Activity Limited By: Weakness Subjective Significant hospital events: Patient had colonoscopy in the morning of 05/11 and developed acute onset encephalopathy and R side neglect. CT H at OSH showed L f rontoparietal hypodensity. No tpa or thrombectomy. Mental / Cognitive Status: Lethargic;Cooperative;Follows Commands(limited attent ion) Persons Present: Occupational Therapist;Student Pain: Patient has no complaint of pain Comments: Pt requires near continual stimulation in order to remain focused on t ask and participating. Bed Mobility/Transfer Transfer Type: Sit to/from Stand Transfer: Assistance Level: To/From;Bed Side Chair;Minimal Assist Transfer: Assistive Device: Hand Hold Assist Transfers: Type Of Assistance: For Strength Deficit;For Balance;For Safety Consi derations End Of Activity Status: Up in Chair;Nursing Notified;Instructed Patient to Reque st Assist with Mobility;Instructed Patient to Use Call Light(pads alarm activate d and lift sling under pt) Gait Gait Distance: 25 feet(x2) Gait: Assistance Level: Minimal Assist(and chair follow) Gait: Assistive Device: Rail;Wheelchair Follow Gait: Descriptors: Pace: Slow;Decreased step length(verbal cues) Activity Limited By: Complaint of Fatigue Activity/Exercise Comments: Sit <> stands x5; prolonged standing at sink for grooming. Education Persons Educated: Patient/Family Patient Barriers To Learning: Cognitive Deficits Interventions: Repetition of Instructions Teaching Methods: Verbal Instruction Patient Response: More Instruction Required Topics: Plan/Goals of PT Interventions;Importance of Increasing Activity;Recomme nd Continued Therapy Assessment/Progress Impaired Mobility Due To: Impaired Balance;Decreased Activity Tolerance Assessment/Progress: Should Improve w/ Continued PT Goals Goal Formulation: With Patient/Family Time For Goal Achievement: 5 days Patient Will Go Supine To/From Sit: w/ Stand By Assist Patient Will Transfer Sit to Stand: w/ Stand By Assist Patient Will Ambulate: 151-200 Feet, w/ Stand By Assist Plan Treatment Interventions: Mobility Training Plan Frequency: 5 Days per Week PT Plan for Next Visit: Work on transfers; progress gait as able. PT Discharge Recommendations Recommendation: Inpatient setting Therapist: Sejal Fountain, PT Date: 05/14/2019 T * Sarah Kumar, RD - 05/13/2019 2:38 PM ASSISTANT MANAGER CLINICAL NUTRITION Clinical Nutrition Diabetic Assessment Name: Mariaa Mahoney : 1940 Age: 79 y.o. Admission Date: 05/11/2019 LOS: 2 days Recommendation: Advance to 60g/meal consistent carb, cardiac diet when taking 60% of needs consi stently from po with textures per EDGER MACHINE HELPER. Comments: 79 y.o. female w/ HTN, HLD, T2DM, h/o breast and colon cancer who comes to [facility] as a transfer form [facility] for sudden onset lethargy, difficulty r ousing, AMS. Was transferred to [facility] for stroke work up/possible intervention. P t notes wt loss SIX PACK PACKER which was intentional; pt making dietary changes with TOPS m eal planning. Eating well SIX PACK PACKER on regular textured diet per pt/family. Taking M V supplement SIX PACK PACKER. EDGER MACHINE HELPER evaluated pt with mild dysphagia and need for pureed t with regular/thin liquids. Pt should be bolt upright and supervised per EDGER MACHINE HELPER n ote 05/12. Family feeding pt lunch at time of RD visit; pt reclining in bed. Abl e to swallow purees but choked on coffee while not sitting upright. No pressure injuries or GI issues noted. No education provided as pt too sleepy and dischar ge planning to facility anticipated. No acute nutrition risk noted. Nutrition Assessment of Patient: Admit Weight: 100 kg(bed scale); ; Desired Weight: 64 kg(24.9 BMI) BMI (Calculated): 38.97; BMI Categories Adult: Obesity Class II: 35-39.9; Appear ance: Obese Pertinent Allergies/Intolerances: denies food allergies Pertinent Labs: FSBS 202-241 x 24 hrs, 8.4 A1C, LDL 120; Pertinent Meds: Glucophage, MDCFI, statin, bowel meds; Oral Diet Order: Pureed(thin/regular liquids); Current Oral Intake: Improving Estimated Calorie Needs: 2672-4946(25-28 kcal/kg DBW) Estimated Protein Needs: 65-75(1-1.2 g/kg DBW) Malnutrition Assessment: Does not meet criteria; Nutrition Diagnosis: Altered GI function Etiology: swallowing deficits s/p stroke Signs & Symptoms: EDGER MACHINE HELPER findings, pureed diet Sarah Kumar, MS,RD, LD, [facility] *[id number] Voalte: [phone] STANT MANAGER * Zachary Titus, ROXY-TRIMMER AND BORER MACHINE OPERATOR - 05/13/2019 12:30 PM ASSISTANT MANAGER Vascular Neurology Progress Note Admission Date: 05/11/2019 LOS: 2 days Principal Problem: Acute ischemic stroke (HCC) Active Problems: Diabetes (HCC) Hyperlipidemia Dysphagia Obesity Hypertension Assessment: Mariaa Mahoney is a 79 y.o. female with stroke risk factors including HTN, HLD, DM2 , breast/colon cancer who presented to [facility] as a transfer from [facility] for sudden onset of lethargy, AMS, and difficulty arousing. Her initial NIH was 14 with the last known well reportedly being 1730 on 05/11/19. OSH CT head r evealed a left frontoparietal hypodensity. tPA was not given due to CT head and neck changes. OSH CTA head/neck were inconclusive. A repeat CTA head/neck were c ompleted upon arrival to [facility] and showed a left anterior M2 occlusion with a per fusion mismatch and 50% ischemic penumbra. Thrombectomy was not pursed due to th e evidence of large ischemic core on perfusion scan. MRI head performed on 05/12/19 showed acute wedge-shaped infarct in the left MCA territory corresponding to the area previously noted on CT head. Additionally, a punctate subcortical acute infarct within the posterior right parietal lobe was noted. Echocardiogram was performed on 05/12/19 which revealed a normal ejection fraction of 65%, normal right ventricle size and function, no significant valvu lar disease, mildly dilated left atrium of 3.64cm, and no intracardiac thrombus. Stroke Etiology: Cryptogenic, however suspect cardioembolic given multiple strok e territories. Current Exam: Lethargic, oriented x3, dysarthric, with difficulty staying awake during exam. Pupils equal, round, reactive to light. No visual field defects or cuts. Sensation intact but extinction deficits noted in lower extremities. Stren [facility] 5/5 LUE/LLE/RLE. RUE 05/19. Ataxia present in RUE during finger to nose exam. Plan: Acute Ischemic Stroke - CT head: left anterior M2 occlusion - MRI: left MCA wedged shaped infarct as well as subcortical acute infarct withi n posterior right parietal lobe - Echocardiogram: No intracardiac thrombus, normal LV, no significant valvular d isease, mildy dilated LA (3.64cm) - ASA 81mg HLD: - LDL 120 - Increased atorvastatin from 20mg daily to 40mg daily DM2: - A1C 8.4 - Currently on mid dose correction factor - Restart home dose metformin HTN: - SBP's 160's-180's (goal <130/80) - atenolol dose has been held due to bradycardia - Will start 20mg lisinopril daily - PRN hydralazine for SBP >180 - Will consider restarting SIX PACK PACKER hydrocholorthiazide, norvasc, olmesartan should BP's not respond - Cardiac event monitor to be ordered upon discharge for further evaluation of p aroxsymal atrial fibrillation Urinary Retention - Monitor I/O's - Continue post void residual bladder scans - Intermittent straight cath for urinary retention >250 FEN: - Pureed diet (dysphagia level 1) w/ thickened liquids - Continue speech therapy and will upgrade diet as tolerated - Electrolyte replacement PRN. Daily AM labs Ppx: - SCD's and 5000 units SubQ heparin for DVT prophylaxis - Continue bowel regimen w/ dulcolax, colace, and milk of mag Dispo: Inpatient rehab vs long term facility. Patient likely an inpatient rehab candidate but must be capable of performing 3 hours of physical therapy/da y. Patient was seen and discussed with today. Subjective: Ms. Mahoney this morning remains lethargic but reporting adequate slee p overnight. She denies pain or discomfort. Family is present at bedside. Discus sed with both patient and family plan moving forward with need to monitor her bl ood pressure and increase participation with physical therapy. Discussed improve ments will come in incremental steps but that physical therapy remains one of th e best modalities for improvement. Scheduled Meds:[START ON 05/14/2019] aspirin chewable tablet 81 mg, 81 mg, Oral, QDAY atorvastatin (LIPITOR) tablet 40 mg, 40 mg, Oral, QDAY bisacodyL (DULCOLAX) rectal suppository 10 mg, 10 mg, Rectal, QDAY docusate (COLACE) capsule 100 mg, 100 mg, Oral, BID heparin (porcine) PF syringe 5,000 Units, 5,000 Units, Subcutaneous, Q8H insulin aspart U-100 (NOVOLOG FLEXPEN) injection PEN 0-12 Units, 0-12 Units, Sub cutaneous, ACHS (22) lisinopriL (ZESTRIL) tablet 20 mg, 20 mg, Oral, QDAY milk of magnesia (CONC) oral suspension 10 mL, 10 mL, Oral, QDAY senna/docusate (SENOKOT-S) tablet 1 tablet, 1 tablet, Oral, BID sertraline (ZOLOFT) tablet 50 mg, 50 mg, Oral, QDAY Continuous Infusions: PRN and Respiratory Meds:acetaminophen Q4H PRN, acetaminophen Q4H PRN, hydrALAZI NE Q6H PRN Vital Signs: Last Filed in 24 hours Vital Signs: 24 hour Range BP: 167/58 (05/13 799) Temp: 37.1 C (98.8 F) (05/13 799) Pulse: 64 (05/13 799) Respirations: 18 PER MINUTE (05/13 799) SpO2: 91 % (05/13 799) SpO2 Pulse: 66 (05/13 799) BP: (140-184)/(42-68) Temp: [36.8 C (98.2 F)-37.1 C (98.8 F)] Pulse: [51-67] Respirations: [15 PER MINUTE-22 PER MINUTE] SpO2: [91 %-100 %] General physical exam: HEENT: normocephalic, eyes open with no discharge, nares patent, oropharynx is c lear with no lesions, palate intact CV: regular rate, distal pulses palpable Chest: normal configuration, equal chest rise bilaterally Ab: soft, non-tender, no masses, no organomegaly Skin: no rashes or lesions Neuro exam: MS: lethargic, oriented x3 Speech: dysarthric CN II-XII intact Strength: moves all 4 limbs spontaneously, 5/5 LUE/LLE/RLE. 4/5 RUE Sensation: Reportedly intact to touch DTRs: 2/4 throughout, toes downgoing Lab/Radiology/Other Diagnostic Tests: Hematology: Lab Results Component Value Date HGB 10.5 05/13/2019 HCT 31.0 05/13/2019 PLTCT 230 05/13/2019 WBC 5.6 05/13/2019 NEUT 76 05/13/2019 ANC 4.30 05/13/2019 ALC 0.60 05/13/2019 STEFANO 12 05/13/2019 AMC 0.60 05/13/2019 ABC 0.00 05/13/2019 MCV 94.8 05/13/2019 MCHC 33.8 05/13/2019 MPV 7.8 05/13/2019 RDW 13.7 05/13/2019 , Coagulation: Lab Results Component Value Date INR 1.2 05/12/2019 , General Chemistry: Lab Results Component Value Date NA 137 05/13/2019 K 3.7 05/13/2019 CL 104 05/13/2019 GAP 9 05/13/2019 BUN 13 05/13/2019 CR 0.82 05/13/2019 GLU 194 05/13/2019 CA 9.7 05/13/2019 ALBUMIN 3.3 05/12/2019 OBSCA 1.26 05/12/2019 MG 2.7 05/12/2019 TOTBILI 0.6 05/12/2019 , HgbA1C: Lab Results Component Value Date HGBA1C 8.4 05/12/2019 and Lipid Profile: Lab Results Component Value Date CHOL 202 05/12/2019 TRIG 249 05/12/2019 HDL 36 05/12/2019 LDL 120 05/12/2019 VLDL 50 05/12/2019 CTA head: 1. Abrupt occlusion of the anterior left M2 division. 2. Low-attenuation and loss of wagoner-white matter differentiation within the le ft MCA territory (including inferior left frontal lobe, insular cortex, and left basal ganglia) compatible with areas of evolving acute infarct. 3. No acute intracranial hemorrhage. CTA neck: 1. Mild mixed atherosclerotic plaque without significant carotid or vertebral stenosis according to NASCET criteria. 2. Few small nodules in the visualized lung apices. In a high-risk patient, fo llow-up CT of the chest in 12 months could be obtained for further evaluation. I n a low-risk patient, no further follow-up is required. CT perfusion: 1. Small matched perfusion defect in the anterior left MCA territory compatibl e with completed infarct. 2. Surrounding mismatch perfusion defect approximately equal in volume to area of core infarct, compatible with 50%ischemic penumbra. MRI head: 1. Acute wedge-shaped infarct in the left MCA territory corresponding to area of perfusion abnormality on recent CT. 2. Punctate subcortical acute infarct within the posterior right parietal lobe . 3. No other infarcts identified. 4. Mild supratentorial white matter FLAIR hyperintensities, likely chronic sma ll vessel ischemic changes. Echocardiogram: Normal left ventricular systolic function with an EF of 65%. Normal right ventricular size and function Estimated peak systolic PA pressure = 37 mmHg No evidence of a Patent Foramen Ovale (PFO) or intracardiac shunt as assessed by both color doppler and contrast saline injection (with and without valsalva). No significant valvular disease identified. No pericardial effusion Zachary Titus APRN-TRIMMER AND BORER MACHINE OPERATOR Vascular Neurology [id number] STANT MANAGER Associated attestation - Jasvir Helton MD - 05/14/2019 3:04 PM ASSISTANT MANAGER ATTESTATION I personally interviewed and examined the patient. I have reviewed the history, physical, impression and plan outlined by the Nurse Practitioner. I personally reviewed vitals, labs. Pertinent neuroradiological imagings were vi ewed. The patient presents with (HPI) 79-year-old female presented with right-sided we akness, found to have left anterior division MCA territory ischemic stroke with a left M2 branch occlusion. On examination: lethargic, She was able to move both right upper and lower extre mities today at 4-/5. CTA of the head and neck showed the above-mentioned occlusion and no extracrania l significant stenosis, MRI as mentioned, LDL 120. Etiology embolic stroke of undetermined source. Plan: cont aspirin 81 mg, atorvastatin 40mg daily, will need to discharge on ryley nt monitor. Starting lisinopril for BP control. Dispo planning. Staff name: Jasvir Helton MD Date: 05/14/2019 * Joleen Gurrola, OT - 05/13/2019 10:30 AM ASSISTANT MANAGER OCCUPATIONAL THERAPY PROGRESS NOTE Name: Mariaa Mahoney : 1940 Age: 79 y.o. Admission Date: 05/11/2019 LOS: 2 days Subjective Pertinent Dx per Physician: 79 y.o female who presented to OSH for colonoscopy o n 05/11 and developed acute onset encephalopathy and R side neglect post procedur e. CT H at OSH showed L frontoparietal hypodensity & CTA H/N and perfusion were inconclusive. tPA not given. Repeat CTA H/N and4 perfusion at showed L anterior M2 occlusion with a perfusion mismatch with 50% ischemic penumbra. Decided not to pursue EVT due to evidence of large ischemic core on perfusion. Precautions: Falls Pain / Complaints: Patient has no c/o pain Objective Psychosocial Status: Lethargic;Participates in Therapy with Encouragement Persons Present: RehabTechnician;Brother Vision Comment: Pt kept her eyes closed most of the session. Patient opened eyes brief ly and had left gaze preference. ADL's Where Assessed: Chair Grooming Assist: Maximum Assist Grooming Deficits: Wash/Dry Face;Brushing Hair(minimal participation from pt) Functional Transfer Assist: Unable to Assess (due to limited participation) Comment: Patient remained seated in chair at end of session, TABS alarm on. Cognition Overall Cognitive Status: Impaired Expression: Increased Time for Expression;Mumbling/Slurred Attention: Somnolent Education Persons Educated: Patient Barriers To Learning: Cognitive Deficits;Decreased Alertness Interventions: Repetition of Instructions;Physical Cueing;Increase Volume of Ins truction Teaching Methods: Verbal Instruction Patient Response: Unable to Verb or Demo Understanding Topics: Role of OT, Goals for Therapy Goal Formulation: With Patient/Family Assessment Assessment: Decreased ADL Status;Decreased Safe/Judg during ADL;Decreased Cognit ion;Decreased Endurance;Visual Deficit;Decreased Fine Motor Coordination;Decreas ed Self-Care Trans;Decreased High-Level ADLs;Decreased UE Strength Prognosis: Fair;w/Cont OT s/p Acute Discharge Plan OT Frequency: 5x/week OT Plan for Next Visit: Progress transfers, grooming in chair, visual scanning ADL Goals Patient Will Perform Grooming: w/ Minimum Assist;in Chair Patient Will Perform LE Dressing: w/ Moderate Assist Functional Transfer Goals Pt Will Transfer To Bedside Commode: w/ Moderate Assist Vision Goals Pt Will Attend To R Of Body / Environment: 75% of the time, w/ Moderate Cues Pt Will Track R Past Midline: 2/5 Trials OT Discharge Recommendations Recommendation: Inpatient setting Patient Currently Requires Physical Assist With: All mobility;All personal care ADLs;All home functioning ADLs Therapist: SUKHDEEP Dial/Dru [id number] Date: 05/13/2019 STANT MANAGER * Valerie Woodson - 05/13/2019 10:11 AM ASSISTANT MANAGER SPEECH-LANGUAGE PATHOLOGY NO TREATMENT NOTE Attempted to see patient 1x this date. Patient asleep in chair upon arrival to r oom. Not rousable despite maximal verbal and tactile prompts. Communicated with brother and brother in law at bedside. Will attempt to see patient again this af ternoon if schedule permits. Therapist: Valerie Woodson BA, EDGER MACHINE HELPER Student Date: 05/13/2019 STANT MANAGER Associated attestation - Mary Shankar MS,CCC-EDGER MACHINE HELPER - 05/13/2019 2:24 PM ASSISTANT MANAGER Attestation: I was present throughout the visit with this patient. I personally reviewed the plan and recommendations for this patient as outlined by the speech -language pathology student. Addendum 1400: Returned to patient's room at this time, patient snoring loudly, deeply asleep in bed. Not appropriate for EDGER MACHINE HELPER intervention at this time. Will pl an to follow up tomorrow. Mary Shankar MS,CCC-EDGER MACHINE HELPER, Voalte ext. [phone] * Sejal Fountain, PT - 05/13/2019 9:23 AM ASSISTANT MANAGER PHYSICAL THERAPY PROGRESS NOTE Name: Mariaa Mahoney : 1940 Age: 79 y.o. Admission Date: 05/11/2019 LOS: 2 days Mobility Patient Turn/Position: Chair Progressive Mobility Level: Active transfer to chair Level of Assistance: Assist X2 Assistive Device: Hand Held Time Tolerated: 11-30 minutes Activity Limited By: Weakness;Mental Status Variability;Lethargy Subjective Significant hospital events: Patient had colonoscopy in the morning of 05/11 and developed acute onset encephalopathy and R side neglect. CT H at OSH showed L f rontoparietal hypodensity. No tpa or thrombectomy. Mental / Cognitive Status: Lethargic;Cooperative;Inconsistent with Command Follo wing Persons Present: RehabTechnician;Nursing Staff;Family(at end of session) Pain: Patient has no complaint of pain Comments: Command following continues to be limited but is improved today for ye . She is able to mobilize all extremities today to command. Bed Mobility/Transfer Bed Mobility: Supine to Sit: Maximum Assist;Assist with Trunk;Assist with R LE Transfer Type: Sit to/from Stand;Stand Pivot Transfer: Assistance Level: To/From;Bed;Bed Side Chair;Maximal Assist;x2 People Transfer: Assistive Device: Hand Hold Assist Transfers: Type Of Assistance: For Strength Deficit;For Balance;For Safety Consi derations End Of Activity Status: Up in Chair;Nursing Notified;Instructed Patient to Reque st Assist with Mobility;Instructed Patient to Use Call Light(pads alarm activate d and lift sling under pt) Activity/Exercise Comments: Sit <> stands x3 for hygiene. Education Persons Educated: Patient/Family Patient Barriers To Learning: Cognitive Deficits Interventions: Repetition of Instructions Teaching Methods: Verbal Instruction Patient Response: More Instruction Required Topics: Plan/Goals of PT Interventions;Importance of Increasing Activity;Recomme nd Continued Therapy Assessment/Progress Impaired Mobility Due To: Impaired Balance;Decreased Activity Tolerance Assessment/Progress: Should Improve w/ Continued PT Goals Goal Formulation: With Patient/Family Time For Goal Achievement: 5 days Patient Will Go Supine To/From Sit: w/ Stand By Assist Patient Will Transfer Sit to Stand: w/ Stand By Assist Patient Will Ambulate: 151-200 Feet, w/ Stand By Assist(with most appropriate de vice) Plan Treatment Interventions: Mobility Training Plan Frequency: 5 Days per Week PT Plan for Next Visit: Work on transfers; begin gait as able. PT Discharge Recommendations Recommendation: Inpatient setting Therapist: Sejal Fountain, PT Date: 05/13/2019 Vita Ko, ANNETTE - 05/12/2019 7:30 PM ASSISTANT MANAGER I have reviewed the notes, assessment, and/or procedures performed by Miranda Taylor and concur with his documentation unless otherwise noted. STANT MANAGER * Vita Villanueva RN - 05/12/2019 11:32 AM ASSISTANT MANAGER Notified Zachary Titus APRN of 12-Lead ECG results. SR with prolonged VT interv al of 237. No new orders at this time. STANT MANAGER * Vita Villanueva RN - 05/12/2019 10:50 AM ASSISTANT MANAGER Notified Zachary Titus APRN 0900 Atenolol was held d/t a HR of 53. STANT MANAGER * Valerie Woodson - 05/12/2019 9:23 AM ASSISTANT MANAGER SPEECH-LANGUAGE PATHOLOGY CLINICAL SWALLOW ASSESSMENT EVALUATION SUMMARY Summary: A clincal swallow study was completed this date which revealed mild dys phagia. Oral stage characterized by prolonged mastication and inability to clear oral cavity independently with trials of mechanical soft solids. Patient requir ed multiple verbal prompts and a drink of water to successfully clear oral resid ue. Contributing factors to prolonged mastication may include patient lacking up per parital dentures at this time and patient's lethargy/decreased alertness. Ph aryngeal stage WFL; no s/sx of aspiration across trials. At this time, appears p atient is safe to initiate diet of thin liquids and puree solids. An informal speech language evaluation was completed. Speech characterized by mi ld dysarthria characterized by slow rate, imprecise articulation, and slurred qu ality. Intelligibility estimated to be ~95%. Patient accurately answering questi ons and following commands with prompts at this time. Plan to follow up to compl ete a formal speech language evaluation. RECOMMENDATIONS -Thin liquids, puree solids -Medications as tolerated (monitor for incidental pocketing) -Aspiration precautions: *Patient must be sitting bolt upright at 90 degrees for PO intake *100% supervision *Small bites/sips *Slow rate -EDGER MACHINE HELPER will continue to follow for dysphagia management; speech language evaluatio n when clinically appropriate Oral Stage Summary*: Adequate bolus withdraw, form, and transfer with thin liqui ds and puree solids. Prolonged mastication and transfer observed with mechanical soft; unaware of oral reside and required multiple prompts to clear oral cavity. Pharyngeal Stage Summary*: Pharyngeal stage WFL. Timely swallow initiation and c omplete laryngeal elevation to palpation. No s/sx of aspiration with trials of i ce chips, thin liquids, puree, or mechanical soft solids. Plan: Continue Treatment 3-5x/week. Prognosis: Fair, Good NOMS Dysphagia Ratin-Mild Dysphagia -Swallow safe w/ min diet restriction & /or occasionally requires min cues to use compensatory strategies. May occasiona lly self-cue. All nutrition/hydration needs met by mouth at mealtime. Results Reported to Physician: Yes Objective* Relevant Med Background: Mariaa Mahoney is a 79 y.o. female with h/o of HTN, HLD, D MII, hx of breast and colon cancer who is a transfer patient from [facility] due to concern for stroke. Patient had colonoscopy in the morning of 04/18 and developed acute onset encephalopathy and R side neglect. CT H at OSH showe d L frontoparietal hypodensity. tPA was not given due to changes on CT head. CTA H/N and perfusion were inconclusive. Repeat CTA H/N and perfusion at showed L anterior M2 occlusion with a perfusion mismatch with 50% ischemic penumbra. De cided not to pursue EVT due to evidence of large ischemic core on perfusion. MRI 05/12/2019 IMPRESSION 1. Acute wedge-shaped infarct in the left MCA territory corresponding to area of perfusion abnormality on recent CT. 2. Punctate subcortical acute infarct within the posterior right parietal lobe. 3. No other infarcts identified. 4. Mild supratentorial white matter FLAIR hyperintensities, likely chronic small vessel ischemic changes. Psychosocial Status: Participates in Therapy with Encouragement, Lethargic Persons Present: Daughter(Son in Law) Subjective* Pain: Patient has no complaint of pain Pain Level Current*: No pain Trach Presence: No Feeding Tube Present During Eval: None Nutrition* Nutrition Prior To Hospitalization: Oral, Regular, Thin Liquids Current Form Of Nutrition: NPO Oral Mech Exam Oral Mech WFL*: No Oral Mech Exam Summary*: Mild R side facial weakness noted at rest. Mild to mode rate generalized weakness noted bilaterally, however may be related to lethargy. Mild dysarthria noted. Missing parital upper denture - family will bring. Swallow Strategies Small Bites and Sips: Ineffective(No tirals needed) Education* Persons Educated: Patient, Family Barriers To Learning: None Noted Interventions: Family Educated, Staff Educated Teaching Methods: Verbal Topics: Dysphagia Patient Response: Verbalized Understanding Goal Formulation: With Patient Clinical Swallow Goals* Goal : Patient will participate in ongoing swallow assessment with minimal cues Goal : Patient will tolerate current diet without impact on pulmonary status Therapist:Valerie Woodson BA, EDGER MACHINE HELPER Student Date:05/12/2019 STANT MANAGER Associated attestation - Mary Shankar MS,CCC-EDGER MACHINE HELPER - 05/12/2019 10:12 AM ASSISTANT MANAGER Attestation: I was present throughout the evaluation with this patient. I person ally reviewed the plan and recommendations for this patient as outlined by the [facility]-language pathology student. Mary Shankar MS,CCC-EDGER MACHINE HELPER, Voalte ext. [phone] * Joleen Gurrola, ALDA - 05/12/2019 9:15 AM ASSISTANT MANAGER OCCUPATIONAL THERAPY ASSESSMENT NOTE Name: Mariaa Mahoney : 1940 Age: 79 y.o. Admission Date: 05/11/2019 LOS: 1 day Mobility Patient Turn/Position: Supine Progressive Mobility Level: Stand Level of Assistance: Assist X2 Assistive Device: Hand Held Time Tolerated: 11-30 minutes Activity Limited By: Weakness;Mental Status Variability;Lethargy Subjective Pertinent Dx per Physician: 79 y.o female who presented to OSH for colonoscopy o n 05/11 and developed acute onset encephalopathy and R side neglect post procedur e. CT H at OSH showed L frontoparietal hypodensity & CTA H/N and perfusion were inconclusive. tPA not given. Repeat CTA H/N and4 perfusion at showed L anterior M2 occlusion with a perfusion mismatch with 50% ischemic penumbra. Decided not to pursue EVT due to evidence of large ischemic core on perfusion. Precautions: Falls Pain / Complaints: Patient has no c/o pain Objective Psychosocial Status: Willing and Cooperative to Participate;Lethargic Persons Present: Occupational Therapist;Family Home Living Type of Home: House Home Layout: Able to Live on Main Level w/Bedrm/Bathrm Access;Stairs to Enter w/ Rails Bathroom Shower / Tub: Tub/Shower Unit Bathroom Equipment: Shower Chair Home Equipment: Walker;Cane Prior Function Level Of [place]: Independent with ADLs and functional transfers;Independen t with homemaking w/ ambulation Lives With: Alone Receives Help From: None Needed Vision Comment: Limited visual assessment due to decreased attention to task. Patient c ould track to left, did not track right of midline. Patient only kept eyes open briefly. ADL's Where Assessed: Edge of Bed LE Dressing Assist: Total Assist LE Dressing Deficits: Don/Doff R Sock;Don/Doff L Sock Functional Transfer Assist: Maximum Assist x2 Functional Transfer Deficits: Supine to Sit;Sit to Stand;Sit to Supine Activity Tolerance Endurance: 1/5 Tolerates <10 Minutes Exercises, No Significant Change in Vital Signs Sitting Balance: 1+/5 Supports Self w/>50% Effort UsingUE, Requires Therapist Assistance (Minimal Assist for safety due to cognitive deficits) Cognition Overall Cognitive Status: Impaired Expression: Increased Time for Expression;Speech Off Task;Mumbling/Slurred Problem Solving: Decreased Judgment/Safety;Direction Following Assist;Inconsiste nt with commands Orientation: Alert & Oriented x4;To Time(stated year but not month correctly) Attention: Somnolent UE AROM UE AROM Not Assessed: Patient Unable to Follow Commands Comment: Patient grossly moved R arm spontaneously but no R hand functional parlor chaperone . UE Strength / Tone Strength/Tone Not Assessed: Due to Cognitive Deficits Education Goal Formulation: With Patient/Family Assessment Assessment: Decreased ADL Status;Decreased Safe/Judg during ADL;Decreased Cognit ion;Decreased Endurance;Visual Deficit;Decreased Fine Motor Coordination;Decreas ed Self-Care Trans;Decreased High-Level ADLs;Decreased UE Strength Prognosis: Fair;w/Cont OT s/p Acute Discharge Plan OT Frequency: 5x/week OT Plan for Next Visit: Progress transfers, grooming in chair, visual scanning ADL Goals Patient Will Perform Grooming: w/ Minimum Assist;in Chair Patient Will Perform LE Dressing: w/ Moderate Assist Functional Transfer Goals Pt Will Transfer To Bedside Commode: w/ Moderate Assist Vision Goals Pt Will Attend To R Of Body / Environment: 75% of the time, w/ Moderate Cues Pt Will Track R Past Midline: 2/5 Trials OT Discharge Recommendations Recommendation: Inpatient setting Patient Currently Requires Physical Assist With: All mobility;All personal care ADLs;All home functioning ADLs Therapist: SUKHDEEP Dial/Dru [id number] Date: 05/12/2019 STANT MANAGER * Sejal Fountain, PT - 05/12/2019 9:13 AM ASSISTANT MANAGER PHYSICAL THERAPY ASSESSMENT Name: Mariaa Mahoney : 1940 Age: 79 y.o. Admission Date: 05/11/2019 LOS: 1 day Mobility Patient Turn/Position: Supine Progressive Mobility Level: Stand Level of Assistance: Assist X2 Assistive Device: Hand Held Time Tolerated: 11-30 minutes Activity Limited By: Weakness;Mental Status Variability;Lethargy Subjective Significant hospital events: Patient had colonoscopy in the morning of 05/11 and developed acute onset encephalopathy and R side neglect. CT H at OSH showed L f rontoparietal hypodensity. No tpa or thrombectomy. Mental / Cognitive Status: Lethargic;Cooperative;Inconsistent with Command Follo wing Persons Present: Occupational Therapist;Family Pain: Patient has no complaint of pain Comments: Limited exam due to decreased attention; Inattention to right body and environment. Lethargy also limiting, potentially some aphasia as well. Ambulation Assist: Independent Mobility at Household Level with Device Patient Owned Equipment: Single Point Cane;Roller Walker Home Situation: Lives Alone Type of Home: House Entry Stairs: 3-5 Stairs;Rail on 1 Side In-Home Stairs: Able to Live on One Level ROM LE ROM WFL: Yes Strength Strength Unable To Assess: Not Able to Follow Testing Sequence Bed Mobility/Transfer Bed Mobility: Supine to Sit: Maximum Assist;x2 People;Assist with B LE;Assist wi th Trunk Bed Mobility: Sit to Supine: Maximum Assist;x2 People;Assist with B LE;Assist wi th Trunk Transfer Type: Sit to/from Stand Transfer: Assistance Level: To/From;Bed;Maximal Assist;x2 People Transfer: Assistive Device: Hand Hold Assist Transfers: Type Of Assistance: For Strength Deficit;For Balance;For Safety Consi derations End Of Activity Status: In Bed;Nursing Notified;Instructed Patient to Request As sist with Mobility;Instructed Patient to Use Call Light(Bed alarm on) Activity/Exercise Comments: Steps taken toward head of bed x3 with maximal assist x2. Education Persons Educated: Patient/Family Patient Barriers To Learning: Cognitive Deficits Interventions: Repetition of Instructions Teaching Methods: Verbal Instruction Patient Response: More Instruction Required Topics: Plan/Goals of PT Interventions;Importance of Increasing Activity;Recomme nd Continued Therapy Assessment/Progress Impaired Mobility Due To: Impaired Balance;Decreased Activity Tolerance Assessment/Progress: Should Improve w/ Continued PT Goals Goal Formulation: With Patient/Family Time For Goal Achievement: 5 days Patient Will Go Supine To/From Sit: w/ Stand By Assist Patient Will Transfer Sit to Stand: w/ Stand By Assist Patient Will Ambulate: 151-200 Feet, w/ Stand By Assist(with most appropriate de vice) Plan Treatment Interventions: Mobility Training Plan Frequency: 5 Days per Week PT Plan for Next Visit: Work on transfers; begin gait as able. PT Discharge Recommendations Recommendation: Inpatient setting Therapist Sejal Fountain, PT Date 05/12/2019 Lindsey Stokes PA-C - 05/12/2019 6:11 AM ASSISTANT MANAGER Neuro Critical Care Progress Note Mariaa Mahoney Admission Date: 05/11/2019 LOS: 1 day Full Code ASSESSMENT/PLAN Patient Active Problem List Diagnosis Date Noted Acute ischemic stroke (HCC) 05/11/2019 Mariaa Mahoney is a 79 y.o. female w/ HTN, HLD, T2DM, h/o breast and colon cancer w ho comes to [facility] as a transfer form [facility] for sudden onset florin rgy, difficulty rousing, AMS. Was transferred to [facility] for stroke work up/possibl e intervention. Hospital and ICU course: 05/12: AMS/dysarthria after colonscopy 05/11, CT head w/ stroke changes, CTA/CTP s howed M2 occlusion - no intervention; admitted to NEICU for monitoring. Neuro: Left MCA stroke with LT M2 occlusion, no intervention Decreased LOC, right hemineglect, mild confusion, dysarthria Acute right punctate parietal infarct - ASA 300 VT > Hold SIX PACK PACKER ASA 81 until EDGER MACHINE HELPER eval - Defer to further antiplatelet therapy per neurology recommendations - Continue stroke w/up: awaiting echo, A1c - PT, OT, EDGER MACHINE HELPER, and Rehab consulted - VTE prophylaxis: Pharmacological prophylaxis; SQ Heparin and Mechanical prophy laxis; Sequential compression device - Neuro-ICU monitoring, neurochecks q 1 hrs, parameters for prevention of second lauryn brain injury (avoid hypotension, hypoxia, fever, hyperglycemia,significant a nemia, diagnose and treatment of seizures, electrolyte abnormalities) MRI brain w/o: 1. Acute wedge-shaped infarct in the left MCA territory corresponding to area of perfusion abnormality on recent CT. 2. Punctate subcortical acute infarct within the posterior right parietal lobe. 3. No other infarcts identified. 4. Mild supratentorial white matter FLAIR hyperintensities, likely chronic small vessel ischemic changes. Sedation/Pain Management: - if yes: PRN tylenol - Assess for delirium daily Cardiac: HTN HLD - SIX PACK PACKER: lipitor 20, ASA 81 (no reported cardiac hx assuming primary prevention), HCTZ 25mg QDay, norvasc 5mg QDay, fish oil 1 tab QDay, olmesartan 20mg QDay, ate nolol 50mg QDay - Begin Lipitor 40mg (increased d/t high ASCVD) - ASA 300 VT for now - SBP goal: <200 for permissive HTN with acute stroke > Hold all SIX PACK PACKER anti-HTN meds for now except half atenolol (hold parameters in place as patient is bradycardic) - PRN labetolol/hydralazine available - MAP goal > 65 Lab Level Lab Results Component Value Date CHOL 202 (H) 05/12/2019 Lab Results Component Value Date LDL 120 (H) 05/12/2019 No results found for: LIPOPROTA Lab Results Component Value Date HDL 36 (L) 05/12/2019 Lab Results Component Value Date NONHDLCHOL 166 05/12/2019 Lab Results Component Value Date TRIG 249 (H) 05/12/2019 Respiratory: Suspect GUERRERO - Stable on RA - Spo2 goal >95% Lung nodules seen on CTA - Will need to be followed up with repeat chest imaging - likely on outpatient b asis CTA neck: 1. Mild mixed atherosclerotic plaque without significant carotid or vertebral stenosis according to NASCET criteria. 2. Few small nodules in the visualized lung apices. In a high-risk patient, follow-up CT of the chest in 12 months could be obtained for further evaluation. In a low-risk patient, no further follow-up is required. GI: - Feeding: NPO (fails swallow screen w/ LOC) - Await EDGER MACHINE HELPER consult - neurosurgery bowel regimen, ensure daily BM Heme/Onc: TAMY? Hgb: 10.5 Plt: 327 - Daily CBC - SIX PACK PACKER iron supp QDay - assess for coagulopathy, maintain platelets above 100k, INR <1.5 H/o breast/colon cancer - s/p R lumpectomy - s/p colectomy - Extensive FHx various cancers - Patient underwent colonscopy prior to stroke onset (presuming that this routin e monitoring) - SIX PACK PACKER letrozole 2.5mg QDay -> brief lit review by Dr. Keen has shown inconsistent risk of AIs with stroke; continue holding for now ID: [id number] - Patient reportedly was 101.8F OSH, although no evidence of leukocytosis on OSH labs and OSH CXR was clear, UA dirty catch - Received 1x zosyn IV dose at OSH - As patient remains stable and afebrile in NEICU, will hold on further abx unti l clear source - Aim for normothermia, Temp <38.3 celsius, normothermia protocol if febrile Renal: BUN: 16 Cr: 0.83 - Daily BMP - Received 1L NS 100cc/hr due to double contrast load - Aim for normovolemia Intake/Output Summary (Last 24 hours) at 05/12/2019 0633 Last data filed at 05/12/2019 0000 Gross per 24 hour Intake Output 250 ml Net -250 ml Endocrine: T2DM Obesity, BMI 39.1 Vit D deficiency - HgbA1c pending (in process) - Hold SIX PACK PACKER sitagliptin 100mg, glimepiride 4mg, Vitamin D supplement - [facility], accuchecks 5x daily - Blood glucose goal 100-180mg/dl FEN: - IVF: N/A (fluids complete) - Magnesium goal >2.0, i-David goal > 1.0, Potassium goal >4.0 mEq/L Prophylaxis Review: A)GI: none B) Lines: No C) Urinary Catheter: Yes; Retain castellanos due to: Need for accurate Intake and Ou tput D) Antibiotic Usage: No E) VTE: Pharmacological prophylaxis; SQ Heparin and Mechanical prophylaxis; Seq uential compression device F) Isolation: none G)Seizures: none I) Restraints: Patient assessed for need for restraints. Disposition/Family: admit to NEICU for monitoring - likely transfer to the [facility] or in the AM Primary service: NEICU Consults: Neurology Stroke, PT, OT, EDGER MACHINE HELPER, Rehab SUBJECTIVE Mariaa Mahoney is a 79 y.o. female. Overnight Events: No new events noted. Herlinda ochoa slept well overnight per family at bedside. She has no complaints this morning and denies headache, CP, SOA, abdominal pain, N/V, focal weakness. OBJECTIVE Vital Signs: Last Filed Vital Signs: 24 Hour Ra nge BP: 121/44 (05/12 0500) Temp: 37.2 C (99 F) (05/12 0400) Pulse: 51 (05/12 0500) Respirations: 21 PER MINUTE (05/12 0500) SpO2: 98 % (05/120) Height: 160 cm (63") (05/12 0000) Weight: 100 kg (220 lb 7.4 oz) (05/12 0000) Dosing / Dry Weight: 100 kg (220 lb 7.4 oz) (05/12) BP: (108-163)/(39-52) Temp: [37.2 C (99 F)-37.5 C (99.5 F)] Pulse: [51-61] Respirations: [17 PER MINUTE-21 PER MINUTE] SpO2: [96 %-100 %] Intensity Pain Scale (Self Report): (not recorded) Vitals: 05/12/19 0000 Weight: 100 kg (220 lb 7.4 oz) Lines: Peripheral Line Drains: Castellanos Catheter: 250 mL Intake/Output Summary: (Last 24 hours) Intake/Output Summary (Last 24 hours) at 05/12/2019 0613 Last data filed at 05/12/2019 0000 Gross per 24 hour Intake Output 250 ml Net -250 ml Physical Exam: Blood pressure 121/44, pulse 51, temperature 37.2 C (99 F), height 160 cm (6 3"), weight 100 kg (220 lb 7.4 oz), SpO2 98 %. Nicole coma score: E: 3 - Opens eyes to loud noise or command M: 6 - Follows simple motor commands V: 5 - Alert and oriented Neuro: Mental Status: Awakens with loud or tactile stimuli, needs frequent restimulati on to participate with exam; answers all orientation questions and follows simpl e commands Cranial Nerves: Cranial nerves 2-12 INTACT. - Pupil exam: Size: 3mm b/l Reactivity: brisk b/l - EOM: intact with midline gaze - Grimace/facial movement: equal excursion with mild NL flattening Motor: RUE: Strength: 4/5; follows commands with prompting, drifts down to bed w ithin a few seconds, poor effort noted RLE: Strength: 4/5 and wiggles toes to command sluggishly LUE: Strength: 5/5 LLE: Strength: 5/5 Sensory: reports normal sensation to light touch and painful stim of BUE and BL E Lungs: clear to auscultation bilaterally Pulmonary: Airway status stable on RA Heart: regular rate and rhythm, S1, S2 normal, no murmur, click, rub or gallop Abdomen: abnormal findings: hypoactive bowel sounds Extremities: extremities normal, atraumatic, no cyanosis or edema Skin: Skin color, texture, turgor normal. No rashes or lesions Point of Care Testing: (Last 24 hours) Glucose: (!) 186 (05/12/19 0330) Lab Review: Pertinent labs reviewed Radiology and Other Diagnostic Procedures Review: Pertinent radiologic and diag nostic procedures reviewed. I spent 41 minutes managing the care of this patient. Mariaa Mahoney is a criticall y ill patient with left MCA ischemic stroke requiring critical care monitoring a nd management. Cares included: detailed neurologic and systems exam, medication review, laboratory data review and interpretation, electrolyte management, revie w of available imaging, DVT/PE prophylaxis review, diet review, activity review, and coordination of care with consulted teams Lindsey Forman PA-C Date: 05/12/[phone] STANT MANAGER * Aleida Mejia RN - 05/12/2019 12:10 AM ASSISTANT MANAGER Patient arrived to room # ([id number]) via bed accompanied by RN. Bedside safety callie cks completed. Initial patient assessment completed. Refer to flowsheet for deta ils. Admission skin assessment completed with: ANNETTE Reyes Pressure injury present on arrival?: No 1. Head/Face/Neck: No 2. Trunk/Back: No 3. Upper Extremities: No 4. Lower Extremities: No 5. Pelvic/Coccyx: No 6. Assessed for device associated injury? Yes 7. Malnutrition Screening Tool (Nursing Nutrition Assessment) Completed? Unable to assess See Doc Flowsheet for additional wound details. INTERVENTIONS: STANT MANAGER documented in this encounter H&P Notes * En Keen, - 05/11/2019 11:55 PM ASSISTANT MANAGER Neuro Critical Care History and Physical Note Mariaa Mahoney Admission Date: 05/11/2019 LOS: 1 day Full Code ASSESSMENT/PLAN Patient Active Problem List Diagnosis Date Noted Acute ischemic stroke (HCC) 05/11/2019 Mariaa Mahoney is a 79 y.o. female w/ HTN, HLD, T2DM, h/o breast and colon cancer w ho comes to [facility] as a transfer form [facility] for sudden onset florin rgy, difficulty rousing, AMS. Was transferred to [facility] for stroke work up/possibl e intervention. Hospital and ICU course: 05/12: AMS/dysarthria after colonscopy, CT head w/ stroke changes, CTA/CTP showed M2 - no intervention; admitted to NEICU for monitoring. Neuro: L MCA stroke - decreased LOC, R hemineglect, mild confusion, dysarthria Stroke Symptom Onset time: TPA given at: not given with changes already on CT head Initial NIH: 14 IR: No Follow up Imaging: f/u MRI, ECHO LKN 1730 05/[address]: Ill defined L frontal hypoattenuation CTA/CTP repeat here L M2 occlusion, low attenuation of L MCA territory, no hemor rhage, mild atherosclerosis, lung apices nodules (will need to be followed), sma ll matched perfusion defect w/ 50% penumbra Ischemic Stroke Risk Factors Risk factor Present? Target Patient at target? Comments 1. Hypertension Yes SBP <200 Yes Permissive HTN with acute stroke - hold HTN meds 2. Diabetes Yes HBA1C<7 Pending 3. Dyslipidemia Yes LDL<70? Pending 4. H/o stroke/TIA No 5. Atrial fibrillation No If yes, anticoag? No If no anticoagulation, why not? 6. Tobacco abuse No Quit date n/a Anti-platelet treatment with DAPT (was taking ASA 81 prior to stroke onset - rep ortedly compliant per the family but they are not entirely aware) - ASA rectal until the patient is able to take PO; will start Plavix when taking PO If afib/flutter present, is patient on anticoagulation? No Rehabilitation services involved: OT, PT and ST Cognitive impairment suspected? No Rehabilitation medicine team consulted: Yes - VTE prophylaxis: Pharmacological prophylaxis; SQ Heparin and Mechanical prophy laxis; Sequential compression device - Neuro-ICU monitoring, neurochecks q 1 hrs, parameters for prevention of second lauryn brain injury (avoid hypotension, hypoxia, fever, hyperglycemia,significant a nemia, diagnose and treatment of seizures, electrolyte abnormalities) Sedation/Pain Management: - if yes: PRN tylenol - Assess for delirium daily Cardiac: HTN HLD - SIX PACK PACKER: lipitor 20, ASA 81 (no reported cardiac hx assuming primary prevention), HCTZ 25mg QDay, norvasc 5mg QDay, fish oil 1 tab QDay, olmesartan 20mg QDay, ate nolol 50mg QDay - Got 1x labetolol IV at OSH - SBP goal: <200 for permissive HTN with acute stroke - hold all HTN meds for now except half atenolol (hold parameters in place as patient is bradycardic) - PRN labetolol/hydralazine available - f/u FLP, a1c -> will go up on lipitor to 40 now (high ASCVD) - MAP goal > 65 Respiratory: Suspect GUERRERO - Spo2 goal >95%, stable on RA for now Lung nodules seen on CTA - Will need to be followed up with repeat chest imaging - likely on outpatient b asis GI: - Feeding: NPO - fails screen w/ LOC - EDGER MACHINE HELPER consulted - neurosurgery bowel regimen, ensure daily BM Heme/Onc: TAMY? - SIX PACK PACKER iron supp QDay - Hgb stable on OSH labs - assess for coagulopathy, maintain platelets above 100k, INR <1.5 H/o breast/colon cancer - s/p R lumpectomy - s/p colectomy - Extensive FHx various cancers - Patient was getting colonscopy today prior to stroke onset (presuming that thi s routine monitoring) - SIX PACK PACKER letrozole 2.5mg QDay -> brief lit review has shown inconsistent risk of AIs with stroke; will hold this for now ID: - Tmax 99.5F - reportedly was 101.8F OSH - No leukocytosis OSH labs; CXR clear OSH, UA dirty catch - 1x zosyn IV dose at OSH - Will repeat UA here but the patient is stable and afebrile here -> hold on further abx for now until clear source - aim for normothermia, Temp <38.3 celsius, normothermia protocol if febrile Renal: - BMP OSH normal - But patient did received double contrast load - Will give 1L NS 100cc/hr w/ contrast - Aim for normovolemia Endocrine: T2DM Obesity, BMI 39.1 - FLP/a1c pending - SIX PACK PACKER sitagliptin 100mg, glimepride 4mg - MDCF, accuchecks 5x daily - Blood glucose goal 100-180mg/dl Vit D deficiency - SIX PACK PACKER vit D supp FEN: - IVF: 1L NS 100cc/hr - Magnesium goal >2.0, i-David goal > 1.0, Potassium goal >4.0 mEq/L - NPO Prophylaxis Review: A)GI: none B) Lines: No C) Urinary Catheter: Yes; Retain castellanos due to: Need for accurate Intake and Ou tput D) Antibiotic Usage: No E) VTE: Pharmacological prophylaxis; SQ Heparin and Mechanical prophylaxis; Seq uential compression device F) Isolation: none G)Seizures: none I) Restraints: Patient assessed for need for restraints. Disposition/Family: admit to NEICU for monitoring - likely transfer to the [facility] or in the AM Primary service: NEICU Consults: Neurology Stroke, PT, OT, EDGER MACHINE HELPER, Rehab SUBJECTIVE Chief Complaint: AMS 05/11 History of Present Illness: Mariaa Mahoney is a 79 y.o. female w/ HTN, HLD, T2DM, h /o breast and colon cancer who comes to [facility] as a transfer form [facility] for sudden onset lethargy, difficulty rousing, AMS. Patient was getting co lonscopy performed w/ h/o colon CA. Patient was LKN 1730 05/11 just prior. Proced ure itself was uneventful, but following the procedure, the family had noticed t hat the patient was not as responsive to questions as she had been prior despite adequate time after sedation had been stopped. Reportedly the patient's speech was also more confused. EMS was called who recorded at fever 101.8F reportedly ( not seen since). At OSH ED, patient got CT head that showed L frontal hypoattenu ation concerning for stroke. Patient was given labetolol, 1x zosyn for presumed infection. All other labs were unremarkable. Patient was transferred to [facility] for possible intervention (CTA/CTP at OSH was poor quality). Upon arrival to [facility], NIH 14. Patient was lerthargic, difficult to rouse but rousable, intermittently following commands. CTA/CTP was performed that showed L M2 occlusion w/ 50% penu mbra. No intervention was pursued. Patient was admitted [facility] for initial mon itoring. Medical History: Diagnosis Date Arthritis Breast cancer (HCC) CAD (coronary artery disease) Chronic back pain Colon cancer (HCC) Depression Diabetes mellitus (HCC) HTN (hypertension) Hyperlipidemia Surgical History: Procedure Laterality Date BREAST LUMPECTOMY R CATARACT REMOVAL COLECTOMY DILATION AND CURETTAGE KNEE SURGERY gravel removal LIPOMA RESECTION TONSILLECTOMY TUBAL LIGATION Family History Problem Relation Age of Onset Stroke Mother Dementia Mother Diabetes Mother Cancer-Uterine Mother Alcohol abuse Father Lung Disease Father Cancer-Breast Sister Diabetes Brother Hypertension Brother Social History Socioeconomic History Marital status: Not on file Spouse name: Not on file Number of children: Not on file Years of education: Not on file Highest education level: Not on file Occupational History Not on file Tobacco Use Smoking status: Never Smoker Smokeless tobacco: Never Used Substance and Sexual Activity Alcohol use: Not Currently Drug use: Not Currently Sexual activity: Not on file Other Topics Concern Not on file Social History Narrative Not on file Code Status: Full Code Decision Maker: children, sister Immunizations (includes history and patient reported): There is no immunization history on file for this patient. Allergies: Patient has no known allergies. Med: norvasc 5mg QDay, atenolol 50mg QDay, lipitor 20mg QDay, Vit D 1000 QDay, f errous sulfate 325 QDay, glimepride 4mg QDay, HCTZ 25mg QDay, letrozole 2.5mg QD ay, magnesium oxide 400mg QDay, MVT QDay, olemasartan medoxomil 20mg QDay, omega 3 1000 QDay, sertraline 50mg QDay, sitagliptin 100mg QDay Review of Systems: Review of systems not obtained from patient due to patient factors. OBJECTIVE Vital Signs: Last Filed Vital Signs: 24 Hour Ra nge BP: 149/46 (05/12) Temp: 37.5 C (99.5 F) (05/12) Pulse: 61 (05/12) Respirations: 17 PER MINUTE (05/12) SpO2: 100 % (05/12) Height: 160 cm (63") (05/12) Weight: 100 kg (220 lb 7.4 oz) (05/12) Dosing / Dry Weight: 100 kg (220 lb 7.4 oz) (05/12) BP: (149)/(46) Temp: [37.5 C (99.5 F)] Pulse: [61] Respirations: [17 PER MINUTE] SpO2: [100 %] Intensity Pain Scale (Self Report): (not recorded) Vitals: 05/12/19 0000 Weight: 100 kg (220 lb 7.4 oz) Artificial airway: None Ventilator/ Respiratory Therapy: No Vent weaning trial: Not applicable Lines: Peripheral Line Drains: Castellanos Catheter: 200 mL Critical Care Vitals: ICP Monitoring: Hemodynamics/Oxycalcs: Intake/Output Summary: (Last 24 hours) No intake or output data in the 24 hours ending 05/12/19 0112 Physical Exam: Blood pressure (!) 149/46, pulse 61, temperature 37.5 C (99.5 F), height 160 cm (63"), weight 100 kg (220 lb 7.4 oz), SpO2 100 %. [place] coma score: E: 3 - Opens eyes to loud noise or command M: 6 - Follows simple motor commands V: 4 - Seems confused, disoriented Neuro: Mental Status: somnolent, rousable, follows commands intermittently if she is a wake enough, answers some questions depending on how awake she is but the questi ons she answers are correct Cranial Nerves: - Pupil exam: Size: 3 Reactivity: brisk - EOM: L gaze preference that crosses midline - Corneal reflex: R - present L - present - Grimace/facial movement: mild L lower face asymmetry - Cough: present Motor: she is antigravity in all extremities but will not hold them up due to somnolence Sensory: normal; but multimodal hemineglect to the R Coordination: unable to test Lungs: clear to auscultation bilaterally Pulmonary: Respiratory status: Stable Heart: regular rate and rhythm, S1, S2 normal, no murmur, click, rub or gallop Abdomen: soft, non-tender. Bowel sounds normal. No masses, no organomegaly Extremities: extremities normal, atraumatic, no cyanosis or edema Skin: Skin color, texture, turgor normal. No rashes or lesions Point of Care Testing: (Last 24 hours): Lab Review: 24-hour labs: No results found for this visit on 05/11/19 (from th e past 24 hour(s)). Radiology and Other Diagnostic Procedures Review: Pertinent radiologic and diag nostic procedures reviewed. En Keen DO Date: 05/12/[phone] STANT MANAGER Associated attestation - Daren Navarro MD - 05/12/2019 10:36 AM ASSISTANT MANAGER ATTESTATION I reviewed the history and exam documented by the resident last night. I discus sed the case and directed my plan over the phone. I did not see this patient. Staff name: Daren Navarro MD Date: 05/12/2019 documented in this encounter Procedure Notes * Brandon Vasquez MD - 05/18/2019 10:58 AM ASSISTANT MANAGER Procedure(s): EEG AWAKE & ASLEEP INPATIENT EEG REPORT Date of service: 05/18/2019 Name: Mariaa Mahoney Date of : 1940 PATIENT HISTORY: This is a 79 y.o. female with a history of encephalopathy and history of left MC A stroke with episodes of lip smacking, eye blinking, and speech arrest. TECHNICAL: This EEG is performed in the awake and sleep states. The EEG is performed on a 3 2 channel digital recording device. The 10-20 international system of electrode placement is used with additional FT9 and FT10 electrodes. Hyperventilation is n ot performed. Photic stimulation i performed. REPORT: BACKGROUND: The posterior dominant rhythm is not seen. The heart rate is 76 bpm. SLEEP: As the patient enters drowsiness there is an attenuation of background rhythms. Stage II sleep is seen. ABNORMALITIES: 1. There is generalized theta/delta slowing seen throughout the recording period . 2. There is continuous delta slowing seen in the left hemisphere, better noted i n the left temporal region. IMPRESSION This abnormal EEG is indicative of a structural abnormality in the left hemisphe re as well as a mild to moderate encephalopathy. No epileptiform activity is se en. Bassam Bell MD Epilepsy Fellow Attestation I personally reviewed this study and the fellow's report and formulated the abov e mentioned opinions and interpretations in this study. Brandon Vasquez M.D. STANT MANAGER documented in this encounter Consult Notes * Deon Fowler MD - 05/17/2019 2:45 PM ASSISTANT MANAGER Associated Order(s): CONSULT CARDIOLOGY PHYSICIAN CARDIOLOGY CONSULT SERVICE INITIAL CONSULT NOTE TODAY'S DATE: 05/17/2019 PATIENT NAME: Mariaa Mahoney | ADMISSION DATE: 05/11/2019 LOS: 6 days REASON FOR CONSULT: "Evaluation for paroxysmal a-fib in patient with stroke - e tiology ESUS, 30 day monitor at dc w/ follow-up further eval per your recs" ACTIVE HOSPITAL PROBLEM LIST: Principal Problem: Acute ischemic stroke (HCC) Active Problems: Diabetes (HCC) Hyperlipidemia Dysphagia Obesity Hypertension IMPRESSION: Mariaa Mahoney is a 79 y.o. female with stroke risk factors including HTN, HLD, DM2 , breast/colon cancer who presented to [facility] as a transfer from [facility] for sudden onset of lethargy, AMS, and difficulty arousing. Cardiology was consulted for recommendations regarding cardiac monitoring in the setting of cry ptogenic stroke. 1. Acute ischemic stroke. - At this time the etiology for the stroke is cryptogenic but discussed with the primary service who feels it may be cardio-embolic in etiology given her multip le stroke territories. - OSH CT head revealed a left frontoparietal hypodensity. tPA was not given due to CT head and neck changes. - OSH CTA head/neck were reportedly inconclusive. A repeat CTA head/neck were completed upon arrival to [facility] and showed a left ante rior M2 occlusion with a perfusion mismatch and 50% ischemic penumbra. Thrombect radha was not pursed due to the evidence of large ischemic core on perfusion scan. - MRI head 05/12/19 showed acute wedge-shaped infarct in the left MCA territory c orresponding to the area previously noted on CT head. Additionally, a punctate s ubcortical acute infarct within the posterior right parietal lobe was noted. - Echo on 05/12/19, normal ejection fraction of 65%, normal right ventricle size and function, no significant valvular disease, mildly dilated left atrium with L A volume index 35 mL/m2, and no intracardiac thrombus. - No history of prior stroke, heart failure, valve disease, coronary artery dise ase, or atrial fibrillation / atrial flutter 2. Epilepsy. 3. Hyperlipidemia. - Lipid profile CH 202, TG 249, HDL 36, LDL 120 4. Diabetes mellitus. - A1c 8.4% - Managed per primary service 5. Hypertension. - Managed per primary service. - On HCTZ, olmesartan and hydralazine 6. Obesity 7. Probable sleep apnea RECOMMENDATIONS: - Defer antiplatelet therapy to neurology but agree with continuing aspirin 81 m g daily for secondary stroke prevention. - Continue carvedilol, valsartan, and HCTZ with goal BP <130/80 mm Hg. - Keep LDL < 70 mg/dL. - Continue atorvastatin 40 mg nightly. - 30-day court recording monitor (MCOT). - Sleep study outpatient for workup of possible sleep apnea. - Monitor on tele. We will sign off. Thank you for the opportunity to participate in the care of this patient. Ms. Kathy bender was seen and plan of care discussed with Dr. Fowler. Please call or page with questions. After 5PM please call surgical rn weapons officer. Friday - Friday 8AM-5PM please call Cardiology consult pager. Shaheen López D.O., PGY-5 Fellow, Cardiovascular Diseases Pager: [phone] 05/17/19 | 2:48 PM ATTESTATION I personally performed the hull portions of the E/M visit, discussed case with re sident and concur with resident documentation of history, physical exam, assessm ent, and treatment plan unless otherwise noted. Ms. Mahoney recently suffered an a cute ischemic stroke. She is currently off telemetry but her nurse indicated th at she had no evidence for atrial flutter/fibrillation while she was being monit ored on telemetry. A long-term event monitor is recommended for further surveil anju of paroxysmal atrial fibrillation as a possible cause for her ischemic str raymundo. Out-patient follow-up is recommended. The Inpatient Cardiology Service kelly l sign off. Please re-consult us for any further questions. Staff name: Deon Fowler MD Date: 05/17/2019 HPI (chart review): Mariaa Mahoney is a 79 y.o. female with HTN, HLD, T2DM, h/o cha ast and colon cancer who comes to [facility] as a transfer form [facility] for sudden onset lethargy, difficulty rousing, AMS. Patient was getting a colonscopy performed due to history of colon cancer. Patie nt was last known normal on 05/11. Procedure itself was uneventful, but following the procedure, the family had noticed that the patient was not as responsive to questions as she had been prior despite adequate time after sedation had been s topped. Reportedly the patient's speech was more confused. EMS was called. At OSH ED, patient got CT head that showed L frontal hypoattenuation concerning for stroke. Patient was given labetolol, 1x zosyn for presumed infection. All ot her labs were unremarkable. Patient was transferred to [facility] for possible interve ntion (CTA/CTP at OSH was poor quality). Upon arrival to [facility]. patient was lerthargic, difficult to rouse but rousable, i ntermittently following commands. CTA/CTP was performed that showed L M2 occlusi on w/ 50% penumbra. No intervention was pursued. Patient was admitted to [facility] f or initial monitoring. Cardiology was consulted for workup of the cryptogenic st roke. 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 She has no history of prior stroke, heart failure, valve disease, coronary arter y disease, or atrial fibrillation / atrial flutter. She does not follow with a alliances consultant at home. She does snore at night. She does not have angina at rest or with exertion, dyspnea, orthopnea, PND, or e andres. She denies any abdominal pain, nausea or vomiting. She has no syncope. Medical History: Diagnosis Date Arthritis Breast cancer (HCC) CAD (coronary artery disease) Chronic back pain Colon cancer (HCC) Depression Diabetes mellitus (HCC) HTN (hypertension) Hyperlipidemia Lung nodules Obesity Vitamin D deficiency Surgical History: Procedure Laterality Date BREAST LUMPECTOMY R CATARACT REMOVAL COLECTOMY DILATION AND CURETTAGE KNEE SURGERY gravel removal LIPOMA RESECTION TONSILLECTOMY TUBAL LIGATION Social History Socioeconomic History Marital status: Not on file Spouse name: Not on file Number of children: Not on file Years of education: Not on file Highest education level: Not on file Occupational History Not on file Social Needs Financial resource strain: Not on file Food insecurity: Worry: Not on file Inability: Not on file Transportation needs: Medical: Not on file Non-medical: Not on file Tobacco Use Smoking status: Never Smoker Smokeless tobacco: Never Used Substance and Sexual Activity Alcohol use: Not Currently Drug use: Not Currently Sexual activity: Not on file Lifestyle Physical activity: Days per week: Not on file Minutes per session: Not on file Stress: Not on file Relationships Social connections: Talks on phone: Not on file Gets together: Not on file Attends buddhism service: Not on file Active member of club or organization: Not on file Attends meetings of clubs or organizations: Not on file Relationship status: Not on file Intimate partner violence: Fear of current or ex partner: Not on file Emotionally abused: Not on file Physically abused: Not on file Forced sexual activity: Not on file Other Topics Concern Not on file Social History Narrative Not on file Family History Problem Relation Age of Onset Stroke Mother Dementia Mother Diabetes Mother Cancer-Uterine Mother Alcohol abuse Father Lung Disease Father Cancer-Breast Sister Diabetes Brother Hypertension Brother ALLERGIES: Patient has no known allergies. CURRENT FACILITY MEDICATIONS: Scheduled Meds:aspirin chewable tablet 81 mg, 81 mg, Oral, QDAY atorvastatin (LIPITOR) tablet 40 mg, 40 mg, Oral, QDAY bisacodyL (DULCOLAX) rectal suppository 10 mg, 10 mg, Rectal, QDAY carvediloL (COREG) tablet 6.25 mg, 6.25 mg, Oral, BID docusate (COLACE) capsule 100 mg, 100 mg, Oral, BID heparin (porcine) PF syringe 5,000 Units, 5,000 Units, Subcutaneous, Q8H hydroCHLOROthiazide (HYDRODIURIL) tablet 25 mg, 25 mg, Oral, QDAY insulin aspart U-100 (NOVOLOG FLEXPEN) injection PEN 0-24 Units, 0-24 Units, Sub cutaneous, ACHS (22) levETIRAcetam (KEPPRA) tablet 750 mg, 750 mg, Oral, BID metFORMIN (GLUCOPHAGE) tablet 1,000 mg, 1,000 mg, Oral, BID w/meals milk of magnesia (CONC) oral suspension 10 mL, 10 mL, Oral, QDAY senna/docusate (SENOKOT-S) tablet 1 tablet, 1 tablet, Oral, BID sertraline (ZOLOFT) tablet 50 mg, 50 mg, Oral, QDAY valsartan (DIOVAN) tablet 320 mg, 320 mg, Oral, QDAY Continuous Infusions: PRN and Respiratory Meds:acetaminophen Q4H PRN, acetaminophen Q4H PRN, hydrALAZI NE TID PRN REVIEW OF SYSTEMS: A 10-point review of systems was negative except for those items noted in the HP I. Vital Signs: Last Filed in 24 hours Vital Signs: 24 hour Range BP: 145/40 (05/16 1299) Temp: 36.8 C (98.2 F) (05/16 1299) Pulse: 73 (05/16 1299) Respirations: 20 PER MINUTE (05/16 1299) SpO2: 100 % (05/16 1299) BP: (122-155)/(34-51) Temp: [36.3 C (97.3 F)-37.4 C (99.4 F)] Pulse: [63-74] Respirations: [16 PER MINUTE-25 PER MINUTE] SpO2: [94 %-100 %] INTAKE/OUTPUT SUMMARY (Last 24 hours): No intake or output data in the 24 hours ending 05/17/19 8215 PHYSICAL EXAMINATION: General: Alert, cooperative, no distress, appears stated age Head: Normocephalic, atraumatic Eyes: Conjunctivae/corneas clear Throat: Mucous membranes moist Neck: Supple, no carotid bruit, no hepatojugular reflux, no JVD Lungs: Clear to auscultation bilaterally, no crackles/wheezes/rhonchi Chest wall: No significant tenderness or deformity Heart: Normal rate, regular rhythm, normal S1/S2, no murmur Abdomen: Soft, non-tender, normal bowel sounds, no palpable masses Extremities: Extremities normal, atraumatic, no cyanosis, no edema Pulses: Symmetric and 2+ in all extremities Skin: Skin color, texture, turgor normal. No rashes or lesions Neuro: Oriented to name, location and month; slow to respond POC TESTING (Last 24 hours): Glucose: (!) 262 (05/17/19 0949) POC Glucose (Download): (!) 263 (05/17/19 1110) CARDIOGRAPHICS: EC05/12/2019 sinus bradycardia with heart 51 bpm, VT interval 235 msec CHEST X-RAY: No CXR noted in the EMR. LAST ECHOCARDIOGRAM: 05/12/2019 Normal left ventricular systolic function with an EF of 65%. Normal right ventricular size and function Estimated peak systolic PA pressure = 37 mmHg No evidence of a Patent Foramen Ovale (PFO) or intracardiac shunt as assessed by both color doppler and contrast saline injection (with and without valsalva). No significant valvular disease identified. No pericardial effusion LAST STRESS TEST RESULT: No stress noted in the EMR. LAST CARDIAC CATHETERIZATION: No cath noted in the EMR. LAB/OTHER DIAGNOSTIC TESTIN-hour labs: Results for orders placed or performed during the hospital encounter of 05/11/19 (from the past 24 hour(s)) POC GLUCOSE Collection Time: 05/16/19 5:28 PM Result Value Ref Range Glucose, POC 192 (H) 70 - 100 MG/DL POC GLUCOSE Collection Time: 05/16/19 9:01 PM Result Value Ref Range Glucose, POC 200 (H) 70 - 100 MG/DL POC GLUCOSE Collection Time: 05/17/19 2:26 AM Result Value Ref Range Glucose, POC 217 (H) 70 - 100 MG/DL POC GLUCOSE Collection Time: 05/17/19 8:06 AM Result Value Ref Range Glucose, POC 244 (H) 70 - 100 MG/DL CBC Collection Time: 05/17/19 9:49 AM Result Value Ref Range White Blood Cells 5.4 4.5 - 11.0 K/UL RBC 3.19 (L) 4.0 - 5.0 M/UL Hemoglobin 10.5 (L) 12.0 - 15.0 GM/DL Hematocrit 29.8 (L) 36 - 45 % MCV 93.5 80 - 100 FL MCH 33.0 26 - 34 PG MCHC 35.3 32.0 - 36.0 G/DL RDW 14.2 11 - 15 % Platelet Count 292 150 - 400 K/UL MPV 7.3 7 - 11 FL BASIC METABOLIC PANEL Collection Time: 05/17/19 9:49 AM Result Value Ref Range Sodium 137 137 - 147 MMOL/L Potassium 3.8 3.5 - 5.1 MMOL/L Chloride 102 98 - 110 MMOL/L CO2 25 21 - 30 MMOL/L Anion Gap 10 3 - 12 Glucose 262 (H) 70 - 100 MG/DL Blood Urea Nitrogen 31 (H) 7 - 25 MG/DL Creatinine 1.15 (H) 0.4 - 1.00 MG/DL Calcium 10.8 (H) 8.5 - 10.6 MG/DL eGFR Non 46 (L) >60 mL/min eGFR 55 (L) >60 mL/min POC GLUCOSE Collection Time: 05/17/19 11:10 AM Result Value Ref Range Glucose, POC 263 (H) 70 - 100 MG/DL TROPONIN-I Collection Time: 05/17/19 1:27 PM Result Value Ref Range Troponin-I 0.01 0.0 - 0.05 NG/ML OTHER RADIOLOGY/DIAGNOSTICS: Pertinent radiology reviewed. STANT MANAGER * Lg Yoo MD - 05/12/2019 11:43 AM ASSISTANT MANAGER Associated Order(s): CONSULT REHABILITATION MEDICINE PHYSICIAN Physical Medicine & Rehabilitation Consult Note Date of Service: 05/12/2019 Mariaa Mahoney is a 79 y.o. female. : 1940 MRN#: [id number] Primary Insurance: MEDICARE Secondary Insurance: Tertiary Insurance: Financial Class: Medicare Date of Admission: 05/11/2019 Referring Physician: Daren Navarro MD Reason for Consult: evaluate for Post-Acute Rehab/Placement Precautions: Fall Weight bearing Precautions: None Active Problems Active Problems: Acute ischemic stroke (HCC) Cognitive impairment Impaired mobility & ADLs Assessment & Plan Mariaa Mahoney is a 79 y.o. female admitted to [facility] on 05/11/2019 with the following issues: Stroke Impairments: loss of coordination, poor activity tolerance and weakness Activity Limitations: bathing, dressing - upper, dressing - lower, toileting, t ransfers, ambulation, comprehension, expression and memory Participation Restrictions: unable to return home safely Goals: Family / Patient Goals: return home alone Mobility Goals: Overall goal is Modified independent Activities of Daily Living (ADLs) Goals: Overall goal is Modified independent Cognition / Communication Goals: Speech therapy will evaluate and treat cogniti on and communication deficits and assess for safe swallow Rehabilitation Prognosis: Fair Tolerance for three hours of therapy a day: Fair Post acute placement recommendations: Likely subacute rehabilitation Patient extremely lethargic at the time of my evaluation and unable to get a con sistent exam. She appears to have decent strength from neurology documentation, but requiring maximum assist x2 with therapies. Anticipate she may have goals in at least two out of the three therapeutic disciplines and medical complexity to warrant acute inpatient rehabilitation admission candidacy, but will need to sh ow ability to reasonably tolerate 3 hours of daily therapy and carryover between sessions. Potential barriers summarized below. Subacute rehab is likely most ap propriate, but will continue to follow. Prior to consideration for an inpatient rehabilitation admission complete the fo llowing: *Carryover: The patient will need to be following commands (consistently 1 step with progression of 2 step commands) during therapies with signs of carryover pr ior to consideration for acute inpatient rehabilitation. *Endurance: The patient will need to be clearly able to or reasonably expected t o be able to endure 3 hours of constructive therapy per day. This will need to be determined prior to considering admission to acute inpatient rehabilitation. *Dispo: The patient will likely require consistent supervision/assistance even after discharging from [facility]. This will need to be arranged prior to consideratio n for acute inpatient rehab. The patient was discussed with Dr. González Martins. Thank you for this consultation. Please call our consult pager with questions o r concerns. Lg Yoo M.D. PGY-3 Physical Medicine & Rehabilitation Rehab Consult Pager: [phone] History of Present Illness CC: Weakness Hospital Course: Ms. Mariaa Mahoney is a 79-year-old female with history of breast and colon cancer, diabetes, hypertension, hyperlipidemia who was admitted on 04/18 as a transfer from outside hospital for altered mentation and found to have le ft MCA stroke. CT head at outside hospital showed ill-defined left frontal hypo attenuation. CT angiogram at [facility] with left M2 occlusion. Did not receive TPA or EVT. Started on Plavix for DAPT with SIX PACK PACKER aspirin. The patient has been working with PT and OT to address functional and mobility d eficits, rehab medicine is now consulted for post-acute rehab/placement recommen dations. Medical History: Diagnosis Date Arthritis Breast cancer (HCC) CAD (coronary artery disease) Chronic back pain Colon cancer (HCC) Depression Diabetes mellitus (HCC) HTN (hypertension) Hyperlipidemia Lung nodules Obesity Vitamin D deficiency Surgical History: Procedure Laterality Date BREAST LUMPECTOMY R CATARACT REMOVAL COLECTOMY DILATION AND CURETTAGE KNEE SURGERY gravel removal LIPOMA RESECTION TONSILLECTOMY TUBAL LIGATION Social History Socioeconomic History Marital status: Not on file Spouse name: Not on file Number of children: Not on file Years of education: Not on file Highest education level: Not on file Occupational History Not on file Tobacco Use Smoking status: Never Smoker Smokeless tobacco: Never Used Substance and Sexual Activity Alcohol use: Not Currently Drug use: Not Currently Sexual activity: Not on file Other Topics Concern Not on file Social History Narrative Not on file Family History Problem Relation Age of Onset Stroke Mother Dementia Mother Diabetes Mother Cancer-Uterine Mother Alcohol abuse Father Lung Disease Father Cancer-Breast Sister Diabetes Brother Hypertension Brother Family history: Non-contributory Scheduled Meds:[START ON 05/13/2019] aspirin rectal suppository 300 mg, 300 mg, R ectal, QDAY atenoloL (TENORMIN) tablet 25 mg, 25 mg, Oral, QDAY atorvastatin (LIPITOR) tablet 40 mg, 40 mg, Oral, QDAY [START ON 05/13/2019] bisacodyL (DULCOLAX) rectal suppository 10 mg, 10 mg, Recta l, QDAY docusate (COLACE) capsule 100 mg, 100 mg, Oral, BID heparin (porcine) PF syringe 5,000 Units, 5,000 Units, Subcutaneous, Q8H insulin aspart U-100 (NOVOLOG FLEXPEN) injection PEN 0-12 Units, 0-12 Units, Sub cutaneous, ACHS (22) milk of magnesia (CONC) oral suspension 10 mL, 10 mL, Oral, QDAY senna/docusate (SENOKOT-S) tablet 1 tablet, 1 tablet, Oral, BID Continuous Infusions: PRN and Respiratory Meds:acetaminophen Q4H PRN, acetaminophen Q4H PRN, calcium g luconate IV PRN (Tour Guide from Rx) AND Ionized Calcium PRN AND Notify Ph ysician Ongoing, hydrALAZINE Q6H PRN, labetalol (NORMODYNE; TRANDATE) injection Q6H PRN, magnesium sulfate PRN AND Magnesium PRN AND Notify Physician On going, potassium chloride SR PRN OR potassium chloride PRN, sodium phosphate IVPB PRN (Tour Guide from Rx) AND Phosphorus PRN AND Notify Physician Aisha oing No Known Allergies Prior Level of Function The patient was independent for all home distance/community distance mobility/a mbulation and activities of daily living. Home Environment: Home Situation: Lives Alone (05/12/2019 9:41 AM) Patient Owned Equipment: Single Point Cane;Roller Walker (05/12/2019 9:41 AM) Type of Home: House (05/12/2019 9:41 AM) Entry Stairs: 3-5 Stairs;Rail on 1 Side (05/12/2019 9:41 AM) In-Home Stairs: Able to Live on One Level (05/12/2019 9:41 AM) No data recorded Bathroom Equipment: Shower Chair (05/12/2019 9:39 AM) Family/Social assistance availability: Lives alone in single story house with se veral steps to enter. Current Level Of Function: PT Gait: Bed Mobility/Transfers Bed Mobility: Supine to Sit: Maximum Assist, x2 People, Assist with B LE, Assist with Trunk Bed Mobility: Sit to Supine: Maximum Assist, x2 People, Assist with B LE, Assist with Trunk Transfer Type: Sit to/from Stand Transfer: Assistance Level: To/From, Bed, Maximal Assist, x2 People Transfer: Assistive Device: Hand Hold Assist Transfers: Type Of Assistance: For Strength Deficit, For Balance, For Safety Con siderations End Of Activity Status: In Bed, Nursing Notified, Instructed Patient to Request Assist with Mobility, Instructed Patient to Use Call Light(Bed alarm on) OT ADL's Where Assessed: Edge of Bed LE Dressing Assist: Total Assist LE Dressing Deficits: Don/Doff R Sock, Don/Doff L Sock Functional Transfer Assist: Maximum Assist(x2) Functional Transfer Deficits: (Supine to Sit;Sit to Stand;Sit to Supine) EDGER MACHINE HELPER COGNITIVE EVALUATION SUMMARY PRAGMATICS: BEHAVIOR: AUDITORY COMPREHENSION: ORIENTATION: AUDITORY ATTENTION/WORKING MEMORY: AUDITORY MEMORY/SUSTAINED ATTENTION: NEW LEARNING: SEQUENCING/ORGANIZATION: PROBLEM SOLVING: REASONING: MATH/MONEY SKILLS: VISUAL PERCEPTUAL: SWALLOW EVALUATION SUMMARY Summary: A clincal swallow study was completed this date which revealed mild dys phagia. Oral Stage Summary*: Adequate bolus withdraw, form, and transfer with thin liqui ds and puree solids. Prolonged mastication and transfer observed with mechanical soft; unaware of oral reside and required multiple prompts to clear oral cavity. Pharyngeal Stage Summary*: Pharyngeal stage WFL. Timely swallow initiation and c omplete laryngeal elevation to palpation. No s/sx of aspiration with trials of i ce chips, thin liquids, puree, or mechanical soft solids. Plan: Continue Treatment __x/week (Comment). Prognosis: Fair, Good Review of Systems A 14 point review of systems was negative except for: that noted in the HPI Physical Exam BP: 143/44 (05/12 799) Temp: 36.4 C (97.5 F) (05/12 799) Pulse: 54 (05/12 799) Respirations: 18 PER MINUTE (05/12 799) SpO2: 95 % (05/12 799) SpO2 Pulse: 54 (05/12 0700) Height: 160 cm (63") (05/12 799) Body mass index is 38.97 kg/m. General: Lethargic HEENT: NC/AT Heart: RRR, no murmurs Lungs: No distress on RA, CTAB Abdomen: Soft, non-distended Extremities: No cyanosis or edema Skin: Dry and intact; no rash on exposed surfaces Neuro: Lethargic, very inconsistent with command following. Forcefully keeping e yes closed at times. Demonstrates at least antigravity strength in all extremiti es. Speaks in 1-2 word phrases. Seems to have right sensory hemineglect Intake/Output Summary (Last 24 hours) at 05/12/2019 1144 Last data filed at 05/12/2019 0000 Gross per 24 hour Intake Output 250 ml Net -250 ml Hematology: Lab Results Component Value Date HGB 10.5 05/12/2019 HCT 31.1 05/12/2019 PLTCT 237 05/12/2019 WBC 6.8 05/12/2019 NEUT 80 05/12/2019 ANC 5.40 05/12/2019 ALC 0.60 05/12/2019 STEFANO 11 05/12/2019 AMC 0.80 05/12/2019 ABC 0.00 05/12/2019 MCV 94.5 05/12/2019 MCHC 34.0 05/12/2019 MPV 7.9 05/12/2019 RDW 14.2 05/12/2019 , Coagulation: Lab Results Component Value Date INR 1.2 05/12/2019 and General Chemistry: Lab Results Component Value Date NA 136 05/12/2019 K 4.1 05/12/2019 CL 105 05/12/2019 GAP 11 05/12/2019 BUN 16 05/12/2019 CR 0.83 05/12/2019 GLU 186 05/12/2019 CA 9.4 05/12/2019 ALBUMIN 3.3 05/12/2019 OBSCA 1.26 05/12/2019 MG 1.1 05/12/2019 TOTBILI 0.6 05/12/2019 Radiology: Reviewed STANT MANAGER Associated attestation - Kel Martins MD - 05/12/2019 4:03 PM ASSISTANT MANAGER Rehabilitation Medicine Attending Physician Attestation: I personally performed hull portions of the history and exam. I discussed the mary e with the resident and agree with the resident's documentation of history, phys ical assessment and treatment plan unless otherwise noted. Thank you for allowing us to participate in the care of this patient. González Martins MD Rehabilitation Medicine documented in this encounter Miscellaneous Notes * Case Mgmt DC Plan - Aury Mistry - 05/18/2019 2:15 PM ASSISTANT MANAGER SW received message from Delfin ([phone]) at [facility]. Delfin educated that per am bulance crew they recall leaving 1 personal belonging bag which was clear/white in color on the bedside table in pt's room at pt's SNF when they arrived. PANFILO spoke with pt's CARLITO Dunne ([phone]) to update. Aury Mistry LMSW Phone: [phone] Pager: *[phone] * Case Mgmt DC Plan - Aury Mistry - 05/18/2019 2:15 PM ASSISTANT MANAGER SW received call and spoke with pt's CARLITO Dunne. Vibha requested that PANFILO co ntact [facility] ambulance again to confirm that crew members handed personal belonging s bag directly to SNF staff. PANFILO educated that per last week's discission it appe ared they did, however Vibha continues to request SW make additional call. PANFILO left message for Delfin ([phone]) at [facility] to confirm that crew handed bag to SNF staff. Update 4:04pm: PANFILO spoke with Delfin at [facility]. Delfin educated that he will get addit ional details from crew members and call this SW back. Aury Mistry LMSW Phone: [phone] Pager: *[phone] * Case Mgmt DC Plan - Aury Mistry - 05/18/2019 2:15 PM ASSISTANT MANAGER SW spoke with pt's CARLITO Dunne ([phone]) who educated that pt did not arri ve to [facility] with any of her personal belongings. Vibha argueta ducated that pt's glasses in a purple case and dentures in a pink box were at [facility] on day of d/c but family is unable to locate them. PANFILO spoke with devulcanizer charger and [place] [employer] Sexual Abuse Counsellor and they have been no found items. Both parties checked in pt's previous room and items not located. PANFILO spoke with Joleen ([phone]) at [facility] ambulance to see if they have located an y items. Joleen educated that she will check with field supervision and call this S W back. Update 11:14am: PANFILO spoke with Delfin at [facility] and they do not have pt's belongings. Delfin educated that he checked the ambulance and spoke with both crew members. Per crew members' reports, pt was sent from [facility] with 1 personal belonging bag w hich staff left at SNF. SW left message for Vita ([phone]) at [facility] to see if they have located belongings. Update 12:00pm: SW spoke with Vita at [facility] and they do not any of pt's personal belongings and denied that any bag was dropped off at [facility]. Update 2:40pm: SW spoke with Patient Relations to request assistance. Aury Mistry [facility] Phone: [phone] Pager: *[phone] STANT MANAGER * Care Plan - Alona Berry, ANNETTE - 05/18/2019 12:56 PM ASSISTANT MANAGER Problem: Discharge Planning Goal: Participation in plan of care Outcome: Goal Achieved Goal: Knowledge regarding plan of care Outcome: Goal Achieved Goal: Prepared for discharge Outcome: Goal Achieved Problem: Neurological Status, Impaired/Altered Goal: Progress toward maximizing functional outcomes Outcome: Goal Achieved Goal: Cognitive status restored to baseline Outcome: Goal Achieved Problem: Falls, High Risk of Goal: Absence of falls-Adult Patient Outcome: Goal Achieved Problem: Mobility/Activity Intolerance Goal: Maximize functional ADL's and mobility outcomes Outcome: Goal Achieved STANT MANAGER * Case Mgmt DC Plan - Qiana Angel - 05/18/2019 11:03 AM ASSISTANT MANAGER [facility] Note Plan: Patient to discharge to [facility] today at 1330/1400 via [facility]. Interventions: Received request from [facility] Aury Mistry to assist with transfer packet, and s etting up transport. [facility] set [facility] [phone] for 1330/1400. They are [facility] to verify time will be possible. [facility] filled out PCS form for the packet. [facility] to deliver transfer packet to room. Updated [facility]. Qiana Angel Cellar Hand For additional assistance please contact [facility] Aury Mistry *2 STANT MANAGER * Case Mgmt DC Plan - Aury Mistry - 05/18/2019 8:41 AM ASSISTANT MANAGER Case Management Progress Note NAME:Mariaa Mahoney :[birth year] AGE: 79 y.o. ADMISSION DATE: 05/11/2019 DAYS ADMITTED: LOS: 7 days Todays Date: 05/18/2019 Plan D/c to [facility] today at 1:30-2:00pm via [facility]. Interventions PANFILO reviewed EMR and met with Neuro team for huddle. ? Support Support: Pt/Family Updates re:POC or DC Plan ? Info or Referral ? Discharge Planning Discharge Planning: Inpatient Rehabilitation, Alf Facility PANFILO sent updated clinicals to [facility]. PANFILO spoke with Vita ([phone]) at [facility] to update. He ather remains in agreement with admission pending pt stability. Update 9:30am: PANFILO spoke with Neuro Team and pt will be stable for d/c this after noon following bolus of fluids and EEG read. PANFILO left message for Vita at [facility] to update. Update 10:35am: PANFILO received message from Vita at [facility] a nd they are agreeable to admit today. PANFILO tasked [employer]IV[employer] to arrange [facility] ambulance for today at 1:30-2:00pm. PANFILO spoke with Vita at [facility] to update. Vita agreeable to DCP. PANFILO spoke with Neuro Team to update. PANFILO spoke with bedside RN to update. PANFILO spoke with pt's CARLITO Dunne to update. Vibha agreeable to DCP. PANFILO tasked FRE[employer] DELIVERY DRIVER to deliver transfer packet. Care Assessment and PCS form in packet . RN Report: [phone] PANFILO faxed d/c orders to [facility] at [phone]. ? Medication Needs ? Financial ? Legal ? Other Disposition ? Expected Discharge Date Expected Discharge Date: 05/18/19 Expected Discharge Time: 1330 ? Transportation Does the patient need discharge transport arranged?: Yes Transportation Name, Phone and Availability #1: stretcher van ? Next Level of Care (Acute Psych discharges only) ? Discharge Disposition Durable Medical Equipment No service has been selected for the patient. [facility] Destination - Selection Complete Service Provider Request Status Selected Services Address Phone Number Fax Numb er [facility] Selected Alf [address] [place] [id number] [phone] Home Care No service has been selected for the patient. Dialysis/Infusion No service has been selected for the patient. Aury Mistry LMSW Phone: [phone] Pager: *[phone] STANT MANAGER * Care Plan - Griselda Owens RN - 05/18/2019 2:51 AM ASSISTANT MANAGER Problem: Discharge Planning Goal: Knowledge regarding plan of care Outcome: Goal Ongoing Problem: Falls, High Risk of Goal: Absence of falls-Adult Patient Outcome: Goal Ongoing STANT MANAGER * Case Mgmt DC Plan - Aury Mistry - 05/17/2019 8:47 AM ASSISTANT MANAGER Case Management Progress Note NAME:Mariaa Mahoney :[birth year] AGE: 79 y.o. ADMISSION DATE: 05/11/2019 DAYS ADMITTED: LOS: 6 days Todays Date: 05/17/2019 Plan Anticipate d/c to [facility] tomorrow vs Friday pending pt st ability. Interventions SW reviewed EMR and met with Neuro team for huddle. ? Support Support: Pt/Family Updates re:POC or DC Plan ? Info or Referral ? Discharge Planning Discharge Planning: Inpatient Rehabilitation, Alf Facility PANFILO sent updated clinicals to [facility]. PANFILO spoke with Neuro Team and pt is not stable for d/c today secondary to increas ed seizures yesterday. PANFILO spoke with Mike ([phone]) at [facility] ambulance to cancel transportation for today. PANFILO spoke with Ivory ([phone]) at [facility] to update. PANFILO spoke with bedside RN to update. PANFILO visited pt at bedside to update. Pt expressing disappointment that she is not stable for d/c and returning closer to her family, however understanding of cur rent barrier to DCP. Pt remains in agreement with DCP and assisted SW with compl etion of Care Assessment. PANFILO spoke with pt's CARLITO Dunne ([phone]) to update. ? Medication Needs ? Financial ? Legal ? Other Disposition ? Expected Discharge Date Expected Discharge Date: 05/18/19 Expected Discharge Time: 1000 ? Transportation Does the patient need discharge transport arranged?: Yes Transportation Name, Phone and Availability #1: stretcher van ? Next Level of Care (Acute Psych discharges only) ? Discharge Disposition Durable Medical Equipment No service has been selected for the patient. Destination - Selection Complete Service Provider Request Status Selected Services Address Phone Number Fax Numb er [facility] Selected Alf [facility] [place] [id number] [phone] Home Care No service has been selected for the patient. Dialysis/Infusion No service has been selected for the patient. Aury Mistry LMSW Phone: [phone] Pager: [phone] STANT MANAGER * Care Plan - Erin Whitfield RN - 05/17/2019 5:37 AM ASSISTANT MANAGER Problem: Discharge Planning Goal: Participation in plan of care Outcome: Goal Ongoing Flowsheets (Taken 05/14/2019 1436 by Stephanie Bojorquez RN) Participation in Plan of Care: Involve patient/caregiver in care planning decisi on making Problem: Neurological Status, Impaired/Altered Goal: Progress toward maximizing functional outcomes Outcome: Goal Ongoing Flowsheets (Taken 05/14/2019 1436 by Stephanie Bojorquez RN) Progress toward maximizing functional outcomes: Establish therapeutic relationsh ip;[place] patient to reality;Promote functional status;Manage environmental safe ty;Reduce impaired mental status risk;Provide safety precautions education;Obser ve patient activities Problem: Falls, High Risk of Goal: Absence of falls-Adult Patient Outcome: Goal Ongoing Flowsheets (Taken 05/14/2019 1436 by Stephanie Bojorquez, RN) Absence of falls-Adult Patient: Provide safe ambulation.;Complete Fall Risk Asse ssment.;Provde safe environment.;Implement fall risk bundle.;Consider additional interventions if patient is confused, has gait/balance problems and on high risk medications.;Provide fall prevention strategies. Problem: Mobility/Activity Intolerance Goal: Maximize functional ADL's and mobility outcomes Outcome: Goal Ongoing Flowsheets (Taken 05/15/2019 0430) Maximize functional ADLs and mobility outcomes: Maintain body position;Manage en vironmental safety;Consider consult for mobility/activity intolerance;Physical t hrapy evaluation and treatment;Occupational therapy evaulation and treatment STANT MANAGER * Care Plan - Erin Whitfield RN - 05/16/2019 4:27 AM ASSISTANT MANAGER Problem: Discharge Planning Goal: Participation in plan of care 05/16/2019425 by Erin Whitfield RN Outcome: Goal Ongoing Flowsheets (Taken 05/14/20191435 by Stephanie Bojorquez, RN) Participation in Plan of Care: Involve patient/caregiver in care planning decisi on making 05/16/2019424 by Erin Whitfield RN Outcome: Goal Ongoing Flowsheets (Taken 05/14/20191435 by Stephanie Bojorquez, ANNETTE) Participation in Plan of Care: Involve patient/caregiver in care planning decisi on making Note: Patient actively participating in plan of care. Problem: Neurological Status, Impaired/Altered Goal: Progress toward maximizing functional outcomes 05/16/2019425 by Erin Whitfield RN Outcome: Goal Ongoing Flowsheets (Taken 05/14/20191435 by Stephanie Bojorquez RN) Progress toward maximizing functional outcomes: Establish therapeutic relationsh ip;[place] patient to reality;Promote functional status;Manage environmental safe ty;Reduce impaired mental status risk;Provide safety precautions education;Obser ve patient activities 05/16/2019424 by Erin Whitfield RN Outcome: Goal Ongoing Flowsheets (Taken 05/14/20191435 by Stephanie Bojorquez RN) Progress toward maximizing functional outcomes: Establish therapeutic relationsh ip;[place] patient to reality;Promote functional status;Manage environmental safe ty;Reduce impaired mental status risk;Provide safety precautions education;Obser ve patient activities Problem: Falls, High Risk of Goal: Absence of falls-Adult Patient 05/16/2019425 by Erin Whitfield RN Outcome: Goal Ongoing Flowsheets (Taken 05/14/20191435 by Stephanie Bojorquez, ANNETTE) Absence of falls-Adult Patient: Provide safe ambulation.;Complete Fall Risk Asse ssment.;Provde safe environment.;Implement fall risk bundle.;Consider additional interventions if patient is confused, has gait/balance problems and on high risk medications.;Provide fall prevention strategies. 05/16/2019424 by Erin Whitfield RN Outcome: Goal Ongoing Flowsheets (Taken 05/14/20191435 by Reno, Stephanie, RN) Absence of falls-Adult Patient: Provide safe ambulation.;Complete Fall Risk Asse ssment.;Provde safe environment.;Implement fall risk bundle.;Consider additional interventions if patient is confused, has gait/balance problems and on high risk medications.;Provide fall prevention strategies. Note: Fall bundle in place. Bed alarm set. Bed in lowest position. Call light within r each. Problem: Mobility/Activity Intolerance Goal: Maximize functional ADL's and mobility outcomes 05/16/2019425 by Erin Whitfield RN Outcome: Goal Ongoing Flowsheets (Taken 05/15/2019429) Maximize functional ADLs and mobility outcomes: Maintain body position;Manage en vironmental safety;Consider consult for mobility/activity intolerance;Physical t hrapy evaluation and treatment;Occupational therapy evaulation and treatment 05/16/2019424 by Erin Whitfield RN Outcome: Goal Ongoing Flowsheets (Taken 05/15/2019429) Maximize functional ADLs and mobility outcomes: Maintain body position;Manage en vironmental safety;Consider consult for mobility/activity intolerance;Physical t hrapy evaluation and treatment;Occupational therapy evaulation and treatment STANT MANAGER * Care Plan - Erin Whitfield RN - 05/16/2019 4:25 AM ASSISTANT MANAGER Problem: Discharge Planning Goal: Participation in plan of care Outcome: Goal Ongoing Flowsheets (Taken 05/14/20191435 by Stephanie Bojorquez, RN) Participation in Plan of Care: Involve patient/caregiver in care planning decisi on making Note: Patient actively participating in plan of care. Problem: Neurological Status, Impaired/Altered Goal: Progress toward maximizing functional outcomes Outcome: Goal Ongoing Flowsheets (Taken 05/14/20191435 by Stephanie Bojorquez, RN) Progress toward maximizing functional outcomes: Establish therapeutic relationsh ip;[place] patient to reality;Promote functional status;Manage environmental safe ty;Reduce impaired mental status risk;Provide safety precautions education;Obser ve patient activities Problem: Falls, High Risk of Goal: Absence of falls-Adult Patient Outcome: Goal Ongoing Flowsheets (Taken 05/14/20191435 by Stephanie Bojorquez, RN) Absence of falls-Adult Patient: Provide safe ambulation.;Complete Fall Risk Asse ssment.;Provde safe environment.;Implement fall risk bundle.;Consider additional interventions if patient is confused, has gait/balance problems and on high risk medications.;Provide fall prevention strategies. Note: Fall bundle in place. Bed alarm set. Bed in lowest position. Call light within r each. Problem: Mobility/Activity Intolerance Goal: Maximize functional ADL's and mobility outcomes Outcome: Goal Ongoing Flowsheets (Taken 05/15/2019 0430) Maximize functional ADLs and mobility outcomes: Maintain body position;Manage en vironmental safety;Consider consult for mobility/activity intolerance;Physical t hrapy evaluation and treatment;Occupational therapy evaulation and treatment STANT MANAGER * Care Plan - Erin Whitfield RN - 05/15/2019 4:31 AM ASSISTANT MANAGER Problem: Discharge Planning Goal: Participation in plan of care Outcome: Goal Ongoing Flowsheets (Taken 05/14/2019 1436 by Stephanie Bojorquez, RN) Participation in Plan of Care: Involve patient/caregiver in care planning decisi on making Note: Patient actively participating in plan of care. Problem: Neurological Status, Impaired/Altered Goal: Progress toward maximizing functional outcomes Outcome: Goal Ongoing Flowsheets (Taken 05/14/2019 1436 by Stephanie Bojorquez, RN) Progress toward maximizing functional outcomes: Establish therapeutic relationsh ip;[place] patient to reality;Promote functional status;Manage environmental safe ty;Reduce impaired mental status risk;Provide safety precautions education;Obser ve patient activities Problem: Falls, High Risk of Goal: Absence of falls-Adult Patient Outcome: Goal Ongoing Flowsheets (Taken 05/14/2019 1436 by Stephanie Bojorquez, RN) Absence of falls-Adult Patient: Provide safe ambulation.;Complete Fall Risk Asse ssment.;Provde safe environment.;Implement fall risk bundle.;Consider additional interventions if patient is confused, has gait/balance problems and on high risk medications.;Provide fall prevention strategies. Note: Fall bundle in place. Bed alarm set. Bed in lowest position. Call light within r each. Problem: Mobility/Activity Intolerance Goal: Maximize functional ADL's and mobility outcomes Outcome: Goal Ongoing Flowsheets (Taken 05/15/2019 0430) Maximize functional ADLs and mobility outcomes: Maintain body position; Manage e nvironmental safety; Consider consult for mobility/activity intolerance; Physica l thrapy evaluation and treatment; Occupational therapy evaulation and treatment STANT MANAGER * Care Plan - Ambika Chirinos - 05/14/2019 3:15 PM ASSISTANT MANAGER [employer] CONSULTATION ASSESSMENT/RECOMMENDATIONS Patient was referred for [employer] consultation Tobacco Use Treatment Practical Counseling was provided in hospital (including r ecognizing danger situations, developing coping skills and providing basic infor mation about quitting). MEDICATION RECOMMENDATIONS TO QUIT TOBACCO: In-patient quit-tobacco medication: Patient declined using smoking cessation med ication at this time Discharge medication options:Patient declined using smoking cessation medication at this time Post discharge support referral: Declined [employer] Educational Material: Accepted History of Present Illness Reports using 0 cigarettes per day. Patient reported she has never smoked in her life. E-Cigarette or vape use: Never Other tobacco use: None Years used: 0 Withdrawal: No nicotine withdrawal based upon the patients rating on the Emile eli Withdrawal Behavior Rating Scale. Plan about smoking after patient leaves the hospital: I plan to stay quit when I leave the hospital Interest in quitting: High Contact Information If I can be of further assistance, please call [employer] [phone] STANT MANAGER * Care Plan - Stephanie Bojorquez RN - 05/14/2019 2:37 PM ASSISTANT MANAGER Problem: Discharge Planning Goal: Participation in plan of care Outcome: Goal Ongoing Flowsheets (Taken 05/14/2019 1436) Participation in Plan of Care: Involve patient/caregiver in care planning decisi on making Goal: Knowledge regarding plan of care Outcome: Goal Ongoing Flowsheets (Taken 05/14/2019 1436) Knowledge regarding plan of care: Provide plan of care education; Provide admiss ion education to parent/caregiver Goal: Prepared for discharge Outcome: Goal Ongoing Flowsheets (Taken 05/14/2019 1436) Prepared for discharge: Collaborate with multidisciplinary team for hospital dis charge coordination; Complete ADL ability assessment Problem: Neurological Status, Impaired/Altered Goal: Progress toward maximizing functional outcomes Outcome: Goal Ongoing Flowsheets (Taken 05/14/2019 1436) Progress toward maximizing functional outcomes: Establish therapeutic relationsh ip; [place] patient to reality; Promote functional status; Manage environmental s afety; Reduce impaired mental status risk; Provide safety precautions education; Observe patient activities Goal: Cognitive status restored to baseline Outcome: Goal Ongoing Flowsheets (Taken 05/14/2019 1436) Cognitive status restored to baseline: Complete delirium assessment scale; Promo te rest; Assess patient history; [place] patient to reality; Observe patient acit vities Problem: Falls, High Risk of Goal: Absence of falls-Adult Patient Outcome: Goal Ongoing Flowsheets (Taken 05/14/2019 1436) Absence of falls-Adult Patient: Provide safe ambulation.; Complete Fall Risk Ass essment.; Provde safe environment.; Implement fall risk bundle.; Consider additi onal interventions if patient is confused, has gait/balance problems and on high risk medications.; Provide fall prevention strategies. Problem: Mobility/Activity Intolerance Goal: Maximize functional ADL's and mobility outcomes Outcome: Goal Ongoing Flowsheets (Taken 05/14/2019 1436) Maximize functional ADLs and mobility outcomes: Maintain body position STANT MANAGER * Case Mgmt DC Plan - Aury Mistry - 05/14/2019 8:53 AM ASSISTANT MANAGER Case Management Progress Note NAME:Mariaa Mahoney :[birth year] AGE: 79 y.o. ADMISSION DATE: 05/11/2019 DAYS ADMITTED: LOS: 3 days Todays Date: 05/14/2019 Plan D/c to [facility] Friday at 10:00am [facility]. Interventions PANFILO reviewed EMR and met with Neuro team for huddle. ? Support Support: Pt/Family Updates re:POC or DC Plan ? Info or Referral ? Discharge Planning Discharge Planning: Inpatient Rehabilitation, Alf Facility PANFILO tasked [facility] to arrange [facility] ambulance transportation for Friday at 10:00am. PANFILO spoke with Neuro Team to update. PANFILO spoke with bedside RN to update. PANFILO spoke with Ivory ([phone]) at [facility] to confirm. RN Report: [phone] ? Medication Needs ? Financial ? Legal ? Other Disposition ? Expected Discharge Date Expected Discharge Date: 05/17/19 Expected Discharge Time: 1000 ? Transportation Does the patient need discharge transport arranged?: Yes Transportation Name, Phone and Availability #1: stretcher van ? Next Level of Care (Acute Psych discharges only) ? Discharge Disposition Durable Medical Equipment No service has been selected for the patient. Destination No service has been selected for the patient. Home Care No service has been selected for the patient. Dialysis/Infusion No service has been selected for the patient. Aury Mistry LMSW Phone: [phone] Pager: *[phone] STANT MANAGER * Case Mgmt DC Plan - Qiana Angel - 05/14/2019 8:34 AM ASSISTANT MANAGER [facility] Note Plan: Patient to discharge to [facility] Friday Morning (05/16) at 1000 via [facility]. Interventions: Received request from [facility] Aury Mistry to assist with setting up transport. [facility] set [facility] ambulance [phone] for 05/16 at 1000. [facility] to fill out PCS for packet. Updated [facility]. Qiana Angel [employer] For additional assistance please contact [facility] Aury Mistry *[phone] STANT MANAGER * Case Mgmt DC Plan - Qiana Angel - 05/13/2019 8:53 AM ASSISTANT MANAGER [facility] Note: Received request from [facility] Aury Mistry to assist with stretcher van transpor tation quotes. [place] [employer] Quote: $575-$600 [employer] Quote: $550-$[phone] Updated [facility]. Qiana Angel [employer]ellar [employer] For additional assistance please contact [facility] Aury Mistry *[phone] STANT MANAGER * Case Mgmt DC Plan - Aury Mistry - 05/13/2019 8:38 AM ASSISTANT MANAGER Case Management Progress Note NAME:Mariaa Mahoney :[birth year] AGE: 79 y.o. ADMISSION DATE: 05/11/2019 DAYS ADMITTED: LOS: 2 days Todays Date: 05/13/2019 Plan Anticipate d/c to [facility] on Friday via ambulance. Interventions SW reviewed EMR and met with Neuro team for huddle. ? Support Support: Pt/Family Updates re:POC or DC Plan ? Info or Referral ? Discharge Planning Discharge Planning: Inpatient Rehabilitation, Alf Facility PANFILO spoke with Ragini ([phone]) at [facility] to discuss refer ral. Ragini expressing concerns regarding endurance for IPR setting. Ragini reques ting to see updated therapy evaluations prior to making an official decision. PANFILO paged PT and OT to request prioritized sessions. PANFILO tasked [employer] to tilley check stretcher van cost to [facility] IPR. Update 9:30am: SW received message from previous SW who educated that she met wi th family this morning and discuss SNF admission. Previous SW educated that she provided SNF list of options for family to review. Update 10:00am: PANFILO visited pt's brother Santana at bedside to discuss DCP. SW educat ed on IPR vs SNF level of care and benefit. Santana expressing concerns regarding pt 's ability to tolerate 3 hours of therapy daily, which SW voiced similar concern s. Santana agreed that SNF would be the most appropriate options. PANFILO reviewed SNF li st which included quality measures. Santana educated that he plans to review with tuyet cornell this afternoon and he will follow up this SW. SW requested top 2 preference s for referrals and provided contact information for follow up. SW also reviewed transportation options. SW educated that pt would likely tolerate stretcher tra nsportation and educated that typically SNFs do not offer such. PANFILO educated on s tretcher van vs ambulance transportation. PANFILO educated on potential financial ris k of each. Santana endorsing understanding, however expressed that he would feel mos t comfortable with ambulance if needed. PANFILO spoke with Ragini at [facility] to update. PANFILO spoke with therapy services who agreed that pt likely could not tolerate IPR setting at this time. Update 11:45am: PANFILO recevied message from pt's brother Santana ([phone]) express ing that family has reviewed and requested referrals to [facility] a nd [facility]. PANFILO sent referrals to [facility] and [facility]. Update 12:45pm: PANFILO spoke with Antionette at [facility] and they are unable to accept due to lack of bed availability. Antionette educated that they are awaiti ng a d/c, however the resident has until 05/15 to d/c. PANFILO spoke with Vita ([phone]) at [facility] and they are actively reviewing. Vita educated that she will follow up with this SW regard ing potential admission. PANFILO spoke with pt's brother Santana to update of referral status. Update 3:06pm: PANFILO spoke with Vita at [facility] and they are j ust needing confirmation of oncology treatment plans at this time. Vita educa tiffany that they would be unable to provide any oncology treatment plans if needed. PANFILO spoke with Neuro Team who educated that recs are for a repeat CT in 6-12 denny hs to determine necessity for any additional treatment. PANFILO spoke with Vita at [facility] to update. Vita educated is still reviewing additional clinicals, however she will follow up shortly with final decision. Update 3:55pm: PANFILO spoke with Vita at [facility] and they are agreeable to admission. However, Vita educated that their admissions office w ill be out of the office tomorrow and therefore cannot accept until Friday. SW a ttempted to seek alternative options, however Vita educated that they remain unable to accept until Friday. Vita agreeable to SW arranging transportation for Friday at 9:30-10:00am. PANFILO spoke with pt's brother Santana to update. Santana agreeable to d/c on Friday. PANFILO rev iewed transportation options again. Santana endorsing preference to pursue ambulance transportation. PANFILO received message from pt's [id number] Vibha. PANFILO returned call and spo ke with pt's DIL Vibha and son Shayne to update. All parties agreeable to DCP. ? Medication Needs ? Financial ? Legal ? Other Disposition ? Expected Discharge Date Expected Discharge Date: 05/14/19 Expected Discharge Time: 1000 ? Transportation Does the patient need discharge transport arranged?: Yes Transportation Name, Phone and Availability #1: stretcher van ? Next Level of Care (Acute Psych discharges only) ? Discharge Disposition Durable Medical Equipment No service has been selected for the patient. Destination No service has been selected for the patient. Home Care No service has been selected for the patient. Dialysis/Infusion No service has been selected for the patient. Aury Mistry LMSW Phone: [phone] Pager: *[phone] STANT MANAGER * Case Mgmt DC Plan - Qiana Angel - 05/12/2019 2:05 PM ASSISTANT MANAGER [facility] Note: Received request from [facility] Britney Restrepo to fax referrals to the following place ents. [facility] Updated [facility] Qiana Angel Cellar Hand For additional assistance please contact [facility] *[phone] STANT MANAGER * Case Mgmt DC Plan - Britney Restrepo - 05/12/2019 1:57 PM ASSISTANT MANAGER Case Management Progress Note NAME:Mariaa Mahoney :[birth year] AGE: 79 y.o. ADMISSION DATE: 05/11/2019 DAYS ADMITTED: LOS: 1 day Todays Date: 05/12/2019 Plan SW met with pt's niece and son to review d/c planning. They are all in agreemen t that they prefer to go back to the [place], [place] area, if it is possible. SW provided the list generated by [employer], which includes quality data from the [place] dicare.gov website to review. SW also mentioned that transportation is not something that insurance covers. S W explained that if therapy believes that a w/c or stretcher is most appropriate , CM team will tilley the transport and provide a quote to the family. Otherwise , if pt is safe to transport with family, that can also be done. Interventions ? Support Pt's son, Shayne is the best contact for Mrs. Mahoney ([phone]). ? Info or Referral ? Discharge Planning SW asked that the [facility] please send a referral to [facility]. [facility]: [address], [place] [address] ? Medication Needs ? Financial ? Legal ? Other Disposition ? Expected Discharge Date Expected Discharge Date: 05/14/19 Expected Discharge Time: 1000 ? Transportation Does the patient need discharge transport arranged?: No Transportation Name, Phone and Availability #1: Shayne, p: [phone] ? Next Level of Care (Acute Psych discharges only) ? Discharge Disposition Durable Medical Equipment No service has been selected for the patient. [facility] Destination No service has been selected for the patient. Home Care No service has been selected for the patient. Dialysis/Infusion No service has been selected for the patient. Britney Restrepo, [facility] *[phone] STANT MANAGER * Care Coordination-Inpatient - Zachary Titus APRN-NP - 05/12/2019 1:20 PM ASSISTANT MANAGER Stroke Service Interval Note Mariaa Mahoney was staffed this morning with Dr. Helton. Neurological exam is unchange d. Will continue with her stroke workup. Amended plan - Patient upgraded to stroke service and Dr. Helton is the attending physician - 30 day cardiac event monitor upon discharge - x1 straight cath for UA - Troponin and EKG for reported chest tightness [facility] [phone] STANT MANAGER * Case Mgmt DC Plan - Cristina Moreno RN - 05/12/2019 12:23 PM ASSISTANT MANAGER Case Management Admission Assessment NAME:Mariaa Mahoney : 2 AGE: 79 y.o. ADMISSION DATE: 05/11/2019 DAYS ADMITTED: LOS: 1 day Todays Date: 05/12/2019 Source of Information: EMR, pt's son Shayne Abbott CM met with pt for assessment on this date. Provided contact information a nd explanation of SW/NCM roles. Reviewed [facility], Preparing for Disc harge, and Preferred Provider Network hand-outs. Provided opportunity for quest ions and discussion. Pt/family encouraged to contact Case Management team with q uestions and concerns during hospitalization and until patient is able to transi tion back to the patient's primary care physician. [facility] provided Stroke & Brain Injury Resource List for community resources including self-care, support groups, local and national organizations, rehabilitation options, respite care, and financial assistance. Reviewed resource list and provided opportunity for questions. In addition, NCM provided contact information and explanation of SW/RNCM roles per discharge planning trifold. Pt encouraged to contact case management with questions and concerns during hospitalization and until patient is able to transition back to the patient's primary care physician. -Met w/ pt's son at bedside. Due to medical condition pt unable to meaningfully participate in assessment at this time. -Per pt's son, prior to this admission pt was utilizing cane for ambulation and son denies previous utilization of home health services. -Pt's son reports that pt follows with Dr. Odom for her primary care and th at she was last seen in clinic . -Pt's son reports that pt has prescription coverage through [employer] and that he believes all of pts medications are affordable. He states pt prefers to fill her medications at the [facility] in [place]. -Pt's son states he is willing to investigate inpt setting for pt at time of d/c . NCM informed primary SW at this time. -NCM will continue to follow for additional d/c needs. Plan Plan: Case Management Assessment, Assist PRN with SW/NCM Services, Discharge William nning for Facility Anticipated Patient Address/Phone [address] [address] (home) Emergency Contact Extended Emergency Contact Information Primary Emergency Contact: Latasha Mahoney Mobile Relation: Relative Preferred language: VIETNAMESE Secondary Emergency Contact: Shayne Mahoney Mobile Relation: Son Healthcare Directive Transportation Does the patient need discharge transport arranged?: No Transportation Name, Phone and Availability #1: cierra Bella: [phone] Expected Discharge Date Expected Discharge Date: 05/14/19 Expected Discharge Time: 1000 Living Situation Prior to Admission ? Living Arrangements Type of Residence: Home, independent Living Arrangements: Alone Bathroom Shower / Tub: Tub/Shower Unit How many levels in the residence?: 2(w/ basement ) Can patient live on one level if needed?: Yes Does residence have entry and/or side stairs?: Yes(4 steps to enter ) Assistance needed prior to admit or anticipated on discharge: No Who provides assistance or could if needed?: Shayne segura Are they in good health?: Yes Can support system provide 24/7 care if needed?: Maybe ? Level of Function Prior level of function: Independent ? Cognitive Abilities Cognitive Abilities: Unable to Assess Financial Resources ? Coverage Primary Insurance: Medicare Secondary Insurance: Commercial insurance([employer] Fed Emp) Additional Coverage: RX(pt's son reports she has prescription coverage through [employer]) ? Source of Income Source Of Income: SSI ? Financial Assistance Needed? N/A Psychosocial Needs ? Mental Health Mental Health History: No ? Substance Use History Substance Use History Screen: No ? Other N/A Current/Previous Services ? PCP Emerson Odom, , ? Pharmacy [facility] #[id number] [place], [place] - [address] [facility] [address] ? Durable Medical Equipment Durable Medical Equipment at home: Single Point Cane, Walker(pt primarily using cane prior to this admission ) ? Home Health Receiving home health: No ? Hemodialysis or Peritoneal Dialysis Undergoing hemodialysis or peritoneal dialysis: No ? Tube/Enteral Feeds Receive tube/enteral feeds: No ? Infusion Receive infusions: No ? Private Duty Private duty help used: No ? Home and Community Based Services Home and community based services: No ? Emmett White Emmett White: No ? Hospice Hospice: No ? Outpatient Therapy PT: No OT: No EDGER MACHINE HELPER: No ? Alf Facility/Longterm SNF: No NH: No ? Inpatient Rehab IPR: No ? Long-Term Acute Care Hospital LTACH: No ? Acute Hospital Stay Acute Hospital Stay: In the past Was patient's stay within the last 30 days?: No DELL Burnham paper counter Nurse Vegetable Cook Pager: [phone] STANT MANAGER * Acute Stroke Response - Tony Muniz MD - 05/12/2019 3:02 AM ASSISTANT MANAGER NAME:Mariaa Mahoney :1940 AG E: 79 y.o. ADMISSION DATE: 05/11/2019 DAYS ADMITTED: LOS: 1 day Date of Service: 05/12/2019 Allergies: Patient has no known allergies. Type of Acute Stroke Response Team note: Consult Assessment & Plan Chief Complaint: Encephalopathy, new R sided weakness, R facial droop, dysarthri a Assessment: Mariaa Mahoney is a 79 y.o. female with h/o of HTN, HLD, DMII, hx of br east and colon cancer who is a transfer patient from [facility] due t o concern for stroke. Patient had colonoscopy in the morning of 05/11 and develop ed acute onset encephalopathy and R side neglect. CT H at OSH showed L frontopar ietal hypodensity. tPA was not given due to changes on CT head. CTA H/N and perf usion were inconclusive. Repeat CTA H/N and perfusion at showed L anterior M2 occlusion with a perfusion mismatch with 50% ischemic penumbra. Decided not to pursue EVT due to evidence of large ischemic core on perfusion. Impression: Anterior L M2 occlusion. No acute intervention performed. Admit to n euroICU for stroke workup. Suspected localization of Stroke Sx: Anterior L M2 occlusion Suspected etiology: Large - Artery Atherosclerosis Pre-event mRS: 3 - Moderate disability; requiring some help, but able to walk wi thout assistance Plan: - Admit to neuroICU overnight - MRI head W/WO - Stroke risk factor assessment Labs to include FLP, A1c Echocardiogram Telemetry to monitor for arrhythmia Evaluation of smoking history and smoking cessation consult if tobaccoism prese nt Antiplt therapy: will start ASA - Permissive HTN with systolic goal <200 - PT/OT/EDGER MACHINE HELPER consult eval and treat - Rehab consult for assessment of post stroke care The patient was discussed with Dr. Marleen Muniz MD Neurology, PGY-2 History of Present Ilness History of Present Illness: Mariaa Mahoney is a 79 y.o. female with h/o of HTN, HLD, DMII, hx of breast and col on cancer who is a transfer patient from [facility] due to concern fo r stroke. Patient had colonoscopy in the morning of 05/11 and developed acute ons et encephalopathy and R side neglect. CT H at OSH showed L frontoparietal hypode nsity. tPA was not given due to changes on CT head. CTA H/N and perfusion were i nconclusive. Repeat CTA H/N and perfusion at showed L anterior M2 occlusion w ith a perfusion mismatch with 50% ischemic penumbra. Decided not to pursue EVT d ue to evidence of large ischemic core on perfusion. Review of Systems A 14 point review of systems was negative except for: information provided in HP I Stroke Activation Summary Patient Arrival: 2335 ASRT Arrival: 2335 Location of Response : ED Hallway 72 Clinical Presentation: Decreased LOC Signs & Symptoms: Last Known Well Last Known Well - Date: 05/11/19 Last Known Well - Time: 1730 CTA head: 1. Abrupt occlusion of the anterior left M2 division. 2. Low-attenuation and loss of wagoner-white matter differentiation within the left MCA territory (including inferior left frontal lobe, insular cortex, and left basal ganglia) compatible with areas of evolving acute infarct. 3. No acute intracranial hemorrhage. CTA neck: 1. Mild mixed atherosclerotic plaque without significant carotid or vertebral stenosis according to NASCET criteria. 2. Few small nodules in the visualized lung apices. In a high-risk patient, follow-up CT of the chest in 12 months could be obtained for further evaluation. In a low-risk patient, no further follow-up is required. CT perfusion: 1. Small matched perfusion defect in the anterior left MCA territory compatible with completed infarct. 2. Surrounding mismatch perfusion defect approximately equal in volume to area of core infarct, compatible with 50%ischemic penumbra. BP: 157/52 (05/12 0200) Temp: 37.5 C (99.5 F) (05/12 0000) Pulse: 55 (05/12 0200) Respirations: 18 PER MINUTE (05/12 0200) SpO2: 98 % (05/12 0200) SpO2 Pulse: 56 (05/12 0200) Height: 160 cm (63") (05/12 0000) NIHSS Completed at: 2336 NIH Stroke Scale Item Scoring Definition Score 1a. LOC 0=alert and responsive 1=arousable to minor stimulation 2=arousable only to painful stimulation 3=reflex responses or unrousable 2 1b. LOC questions-as patients age and month. Must be exact. 0=both correct 1=one correct (or dysarthria, intubated, foreign language) 2=neither correct 0 1c. Commands-open/close eyes, parlor chaperone and release non-paretic hand (other 1 step co mmands or mimic OK) 0=both correct (ok if impaired by weakness) 1=one correct 2=neither correct 0 2. Best Gaze-horizontal EOM by voluntary or Dolls 0=normal 1=partial gaze palsy (abnormal gaze in one or both eyes) 2=forced eye deviation or total paresis which cannot be overcome by Dolls 1 3. Visual Field-use visual threat if necessary. If monocular, score field of goo d eye 0=no visual loss 1=partial hemianopia, quadrantanopia, extinction 2=complete hemianopia 3=bilateral hemianopia or blindness 0 4. Facial Palsy-if stuporous, check symmetry of grimace to pain 0=normal 1=minor paralysis, flat NLF, asymm smile 2=partial paralysis (lower face=UMN) 3=complete paralysis (upper and lower face) 1 5. Motor Arm-arms outstretched 90 deg (sitting) or 45 deg (supine) for 10 second s. Encourage best effort. 0=no drift x 10 seconds 1=drift but doesnt hit bed 2=some antigravity effort, but cant sustain 3=no antigravity effort, but even minimal mvt counts 4=no movement at all X=unable to assess due to amputation, fusion, etc L/R 1/ 6. Motor Leg-raise leg to 30 degrees supine x 5 seconds 0=no drift x 5 seconds 1=drift but doesnt hit bed 2=some antigravity effort, but cant sustain 3=no antigravity effort, but even minimal mvt counts 4=no movement at all X=unable to assess due to amputation, fusion, etc L/R 2/ 7. Limb Ataxia-check finger-nose- finger; heel-millard; and score only if out of pr oportion to paralysis 0=no ataxia (or aphasic, hemiplegic) 1=ataxia in upper or lower extremity 2=ataxia in upper AND lower extremity X=unable to assess due to amputation, fusion, etc 0 8. Sensory-use safety pin. Check grimace or withdrawal if stuporous. Score only stroke- related losses 0=normal 1=mild-mod unilateral loss but patient aware of touch 9or aphasic, confused) 2=total loss, pt unaware of touch. Coma, bilateral loss 0 9. Best Language-describe cookie jar picture, name objects, read sentences. May use repeating, writing, stereognosis 0=normal 1=mild-mod aphasia (diff but partly comprehensible) 2=severe aphasia (almost no info exchanged) 3=mute, global aphasia, coma. No 1 step commands 0 10. Dysarthria-read list of words 0=normal 1=mild-mod; slurred but intelligible 2=severe; unintelligible or mute 1 11. Extinction/Neglect- simultaneously touch patient on both hands, show fingers in both visual kearney, ask about deficit, left hand 0=normal, none detected. ( visual loss alone) 1=neglects or extinguishes to double simult stimulation in any modality 2=profound neglect in more than one modality 1 Score 12 Was IV tPA given? No The patient was not a tPA candidate due to changes present on CT H done at OSH The patient was not a thrombectomy candidate due to large ischemic core Dysphagia screen: Did Patient Pass The Swallow Screen Part I?: No If "No" Name of Physician Notified: Tony Muniz Health History Medical History: Diagnosis Date Arthritis Breast cancer (HCC) CAD (coronary artery disease) Chronic back pain Colon cancer (HCC) Depression Diabetes mellitus (HCC) HTN (hypertension) Hyperlipidemia Surgical History: Procedure Laterality Date BREAST LUMPECTOMY R CATARACT REMOVAL COLECTOMY DILATION AND CURETTAGE KNEE SURGERY gravel removal LIPOMA RESECTION TONSILLECTOMY TUBAL LIGATION Family History Problem Relation Age of Onset Stroke Mother Dementia Mother Diabetes Mother Cancer-Uterine Mother Alcohol abuse Father Lung Disease Father Cancer-Breast Sister Diabetes Brother Hypertension Brother Social History Socioeconomic History Marital status: Not on file Spouse name: Not on file Number of children: Not on file Years of education: Not on file Highest education level: Not on file Occupational History Not on file Tobacco Use Smoking status: Never Smoker Smokeless tobacco: Never Used Substance and Sexual Activity Alcohol use: Not Currently Drug use: Not Currently Sexual activity: Not on file Other Topics Concern Not on file Social History Narrative Not on file Medications: [START ON 05/13/2019] aspirin rectal suppository 300 mg, 300 mg, Rectal, QDAY atenoloL (TENORMIN) tablet 25 mg, 25 mg, Oral, QDAY atorvastatin (LIPITOR) tablet 40 mg, 40 mg, Oral, QDAY [START ON 05/13/2019] bisacodyL (DULCOLAX) rectal suppository 10 mg, 10 mg, Recta l, QDAY docusate (COLACE) capsule 100 mg, 100 mg, Oral, BID heparin (porcine) PF syringe 5,000 Units, 5,000 Units, Subcutaneous, Q8H insulin aspart U-100 (NOVOLOG FLEXPEN) injection PEN 0-12 Units, 0-12 Units, Sub cutaneous, ACHS (22) milk of magnesia (CONC) oral suspension 10 mL, 10 mL, Oral, QDAY senna/docusate (SENOKOT-S) tablet 1 tablet, 1 tablet, Oral, BID PRN Medications: acetaminophen Q4H PRN, calcium gluconate IV PRN (Tour Guide from Rx) AND Ioniz ed Calcium PRN AND Notify Physician Ongoing, hydrALAZINE Q6H PRN, labetalol (NORMODYNE; TRANDATE) injection Q6H PRN, magnesium sulfate PRN AND Magnesium PRN AND Notify Physician Ongoing, potassium chloride SR PRN OR potassium chloride PRN, sodium phosphate IVPB PRN (Tour Guide from Rx) AND Phosphorus PRN AND Notify Physician Ongoing Physical Exam HEENT: normocephalic, eyes open with no discharge, nares patent, oropharynx is c lear with no lesions, palate intact CV: regular rate, distal pulses palpable Chest: normal configuration, equal chest rise bilaterally Ab: soft, non-tender, no masses, no organomegaly Skin: no rashes or lesions Extended Neuro Exam: Mental status: alert, oriented to person/place/time Speech: Normal Abnormal Fluency x Comprehension x Articulation x Repetition x Naming x Cranial Nerves: Normal Abnormal II x III, IV, x V x VII x VIII x IX, X x XI x XII x Muscle/motor: Tone: nml Bulk: nml Fasciculations: none Pronator drift: none NF NE SA EF EE WE WF FF FE FA TA HF AUGUST HE KF KE DF PF R 5 5 5 5 5 5 5 5 5 5 5 5 5 5 5 5 5 5 L 5 5 5 5 5 5 5 5 5 5 5 5 5 5 5 5 Sensation: Normal RUE LUE RLE LLE Light Touch x Pin Prick x Temperature x Vibration x Proprioception x Coordination: Normal Abnormal Right Abnormal Left Finger to Nose x Rapid alternating x Heel to Millard x Finger tap x Foot tap x Gait and Sation: Regular gait: nml Toe walk: nml Heel walk: nml Tandem gait: nml Romberg: not present Reflexes: Right Left Triceps 2 2 Biceps 2 2 Brachioradialis 2 2 Patella 2 2 Ankle 2 2 Plantar down down Lab/Radiology/Other Diagnostic Tests: 24-hour labs: No results found for this visit on 05/11/19 (from the past 24 sandie r(s)). Pertinent radiology reviewed. STANT MANAGER Associated attestation - Jasvir Helton MD - 05/12/2019 8:23 PM ASSISTANT MANAGER ATTESTATION I personally performed the hull portions of the E/M visit, discussed case with re sident and concur with resident documentation of history, physical exam, assessm ent, and treatment plan unless otherwise noted. Medical, surgical, family and social hx were reviewed with the patient, as menti oned in the note, otherwise noncontributory. I personally reviewed vitals, labs. Pertinent neuroradiological imagings were vi ewed. 79-year-old female presented with right-sided weakness, found to have left anter ior division MCA territory ischemic stroke with a left M2 branch occlusion. On examination: She was able to move both right upper and lower extremities today a t 4-/5. CTA of the head and neck showed the above-mentioned occlusion and no ex tracranial significant stenosis, MRI as mentioned, LDL 120. Etiology embolic st roke of undetermined source. Plan: Still obtaining the rest of stroke work-up i ncluding transthoracic echo. Starting her on aspirin 81 mg daily, will need to discharge on event monitor. Will discuss with her possible enrollment in [facility] A trial if she is eligible. Staff name: Jasvir Helton MD Date: 05/12/2019 * Acute Stroke Response - Aleja Hayden RN - 05/12/2019 12:37 AM ASSISTANT MANAGER RN Stroke Activation Summary Date of Service: 05/12/2019 Mariaa Mahoney is a 79 y.o. female. : 1940 MRN#: [id number] Allergies: Patient has no known allergies. Patient Arrival: 2334 ASRT Arrival: 2334 Location of Response : ED Hallway 72 EMS Agency: [facility] Outside Hospital: [facility] Clinical Presentation: Decreased LOC Total Stroke Scale Score: 12 Signs & Symptoms: Last Known Well Last Known Well - Date: 05/11/19 Last Known Well - Time: 1729 Dysphagia screen: Did Patient Pass The Swallow Screen Part I?: No If "No" Name of Physician Notified: Tony Muniz Assessment & Plan Summary: Earlier today pt had colonoscopy procedure. Last known well around 1730 . Pt found to be lethargic and confused. Transported to OSH where SBP was 202/11 1. CTA/CTP completed for suspected stroke then transferred to [facility]. Repeat CTA /CTP performed. No intervention at this time. Transported to Neuro ICU for close r monitoring. Radiology/Interventional Delay Decision to IR: No Delays: No N/A Plan: Neuro ICU to take over care of pt. Call Completion: 19 RN handoff: Aleida History of Present Illness Medical History: Diagnosis Date Breast cancer (HCC) CAD (coronary artery disease) Colon cancer (HCC) Diabetes mellitus (HCC) HTN (hypertension) Hyperlipidemia No past surgical history on file. Social History Socioeconomic History Marital status: Not on file Spouse name: Not on file Number of children: Not on file Years of education: Not on file Highest education level: Not on file Occupational History Not on file Tobacco Use Smoking status: Not on file Substance and Sexual Activity Alcohol use: Not on file Drug use: Not on file Sexual activity: Not on file Other Topics Concern Not on file Social History Narrative Not on file Aleja Hayden RN STANT MANAGER * Advanced Care Planning/Resuscitation Status - En Keen DO - 05/11/2019 11:57 PM ASSISTANT MANAGER Advance Care Planning/Resuscitation Status Conversation Individuals present for advance care planning conversation: nurse, patient, grover ent surrogate decision maker and resident/fellow physician Pertinent details of conversation (including direct quotes from patient or surro gate): "full code" Outcome of conversation: Full Code Documents completed as a result of this conversation: None Other documents present, which outline patient/surrogate wishes: None Attestation? N/A STANT MANAGER documented in this encounter Plan of Treatment Order Schedule Name Type Priority Associated Diag noses ONE TIME for 1 Occurrences starting 03/2019 until 05/16/2019 EVENT MONITOR Heart Rhythm Routine Management Order Schedule Name Type Priority Associated Diag noses Ordered: 05/18/2019 AMB REFERRAL TO PHYSICAL Outpatient Routine Acute ischemic stroke THERAPY Referral (HCC) Ordered: 05/18/2019 AMB REFERRAL TO Outpatient Routine Acute ischemic stroke OCCUPATIONAL THERAPY Referral (HCC) Ordered: 05/18/2019 AMB REFERRAL TO SPEECH Outpatient Routine Acute i schemic stroke THERAPY Referral ([facility]) Ordered: 05/18/2019 AMB REFERRAL TO NEUROLOGY Outpatient Routine Acut e ischemic stroke Referral ([facility]) Ordered: 05/18/2019 AMB REFERRAL FOR SLEEP Outpatient Routine Acute i schemic stroke STUDIES Referral ([facility]) documented as of this encounter Goals Goal Patient Associated Recent Progress Patient-Stat Aut hor Goal Type Problems ed? [facility] documented as of this encounter Procedures Comments Procedure Name Priority Date/Time Associated Diag nosis POC GLUCOSE 05/18/2019 11:59 AM ASSISTANT MANAGER POC GLUCOSE 05/18/2019 7:21 AM ASSISTANT MANAGER HC CBC,AUTOMATED Routine 05/18/2019 5:02 AM ASSISTANT MANAGER HC BASIC METABOLIC PANEL Routine 05/18/2019 5:02 AM ASSISTANT MANAGER POC GLUCOSE 05/18/2019 4:21 AM ASSISTANT MANAGER POC GLUCOSE 05/17/2019 8:58 PM ASSISTANT MANAGER POC GLUCOSE 05/17/2019 5:23 PM ASSISTANT MANAGER HC VITAMIN B1, WHOLE Routine 05/17/2019 BLOOD 1:27 PM ASSISTANT MANAGER HC TROPONIN-I Routine 05/17/2019 1:27 PM ASSISTANT MANAGER HC LIPASE Routine 05/17/2019 1:27 PM ASSISTANT MANAGER HC FOLATE, SERUM Routine 05/17/2019 1:27 PM ASSISTANT MANAGER HC VITAMIN B12 Routine 05/17/2019 1:27 PM ASSISTANT MANAGER HC AMMONIA Routine 05/17/2019 1:27 PM ASSISTANT MANAGER EEG DEPARTMENT ORDER Routine 05/17/2019 12:12 PM ASSISTANT MANAGER POC GLUCOSE 05/17/2019 11:10 AM ASSISTANT MANAGER HC CBC,AUTOMATED Routine 05/17/2019 9:49 AM ASSISTANT MANAGER HC BASIC METABOLIC PANEL Routine 05/17/2019 9:49 AM ASSISTANT MANAGER POC GLUCOSE 05/17/2019 8:06 AM ASSISTANT MANAGER POC GLUCOSE 05/17/2019 2:26 AM ASSISTANT MANAGER POC GLUCOSE 05/16/2019 9:01 PM ASSISTANT MANAGER POC GLUCOSE 05/16/2019 5:28 PM ASSISTANT MANAGER POC GLUCOSE 05/16/2019 1:39 PM ASSISTANT MANAGER POC GLUCOSE 05/16/2019 11:08 AM ASSISTANT MANAGER HC CBC W/ AUTOMATED DIFF Routine 05/16/2019 10:15 AM ASSISTANT MANAGER HC PHOSPHOROUS, SERUM Routine 05/16/2019 10:15 AM ASSISTANT MANAGER HC MAGNESIUM Routine 05/16/2019 10:15 AM ASSISTANT MANAGER HC COMPREHENSIVE Routine 05/16/2019 METABOLIC PANEL 10:[address] HEAD WO CONTRAST STAT 05/16/2019 9:39 AM ASSISTANT MANAGER POC GLUCOSE 05/16/2019 7:46 AM ASSISTANT MANAGER HC CBC W/ AUTOMATED DIFF Routine 05/16/2019 6:32 AM ASSISTANT MANAGER HC BASIC METABOLIC PANEL Routine 05/16/2019 6:32 AM ASSISTANT MANAGER POC GLUCOSE 05/15/2019 10:07 PM ASSISTANT MANAGER POC GLUCOSE 05/15/2019 5:25 PM ASSISTANT MANAGER POC GLUCOSE 05/15/2019 11:50 AM ASSISTANT MANAGER HC CBC W/ AUTOMATED DIFF Routine 05/15/2019 8:14 AM ASSISTANT MANAGER HC BASIC METABOLIC PANEL Routine 05/15/2019 8:14 AM ASSISTANT MANAGER POC GLUCOSE 05/15/2019 7:23 AM ASSISTANT MANAGER POC GLUCOSE 05/14/2019 9:25 PM ASSISTANT MANAGER POC GLUCOSE 05/14/2019 5:25 PM ASSISTANT MANAGER POC GLUCOSE 05/14/2019 12:09 PM ASSISTANT MANAGER POC GLUCOSE 05/14/2019 9:02 AM ASSISTANT MANAGER HC CBC W/ AUTOMATED DIFF Routine 05/14/2019 4:00 AM ASSISTANT MANAGER HC BASIC METABOLIC PANEL Routine 05/14/2019 4:00 AM ASSISTANT MANAGER POC GLUCOSE 05/13/2019 9:03 PM ASSISTANT MANAGER POC GLUCOSE 05/13/2019 5:39 PM ASSISTANT MANAGER POC GLUCOSE 05/13/2019 12:06 PM ASSISTANT MANAGER POC GLUCOSE 05/13/2019 6:34 AM ASSISTANT MANAGER HC CBC W/ AUTOMATED DIFF Routine 05/13/2019 3:30 AM ASSISTANT MANAGER HC BASIC METABOLIC PANEL Routine 05/13/2019 3:30 AM ASSISTANT MANAGER POC GLUCOSE 05/12/2019 10:18 PM ASSISTANT MANAGER POC GLUCOSE 05/12/2019 5:05 PM ASSISTANT MANAGER TROPONIN-I STAT 05/12/2019 5:04 PM ASSISTANT MANAGER HC MAGNESIUM Routine 05/12/2019 3:06 PM ASSISTANT MANAGER POC GLUCOSE 05/12/2019 11:57 AM ASSISTANT MANAGER HC TROPONIN-I STAT 05/12/2019 11:12 AM ASSISTANT MANAGER ECG 12-LEAD STAT 05/12/2019 10:33 AM ASSISTANT MANAGER 2D + DOPPLER ECHO Routine 05/12/2019 10:30 AM ASSISTANT MANAGER POC GLUCOSE 05/12/2019 6:33 AM ASSISTANT MANAGER HC CBC W/ AUTOMATED DIFF Routine 05/12/2019 3:30 AM ASSISTANT MANAGER HC PHOSPHOROUS, SERUM Routine 05/12/2019 3:30 AM ASSISTANT MANAGER HC MAGNESIUM 05/12/2019 3:30 AM ASSISTANT MANAGER HC CALCIUM IONIZED Routine 05/12/2019 3:30 AM ASSISTANT MANAGER HC Routine 05/12/2019 LIPID-5:CHOL/TRG/HDL/LDL+ 3:30 AM ASSISTANT MANAGER VLDL HC COMPREHENSIVE 05/12/2019 METABOLIC PANEL 3:30 AM ASSISTANT MANAGER MRI HEAD WO CONTRAST Routine 05/12/2019 1:58 AM ASSISTANT MANAGER HC PT(INR) STAT 05/12/2019 12:20 AM ASSISTANT MANAGER HC CBC W/ AUTOMATED DIFF 05/12/2019 12:20 AM ASSISTANT MANAGER HC HEMOGLOBIN A1C 05/12/2019 12:[address] BRAIN PERF STAT 05/12/2019 12:07 AM ASSISTANT MANAGER CTA NECK WO/W STAT 05/12/2019 CONTRAST+POST P 12:07 AM ASSISTANT MANAGER CTA HEAD WO/W CONTR+POST STAT 05/12/2019 PRO 12:07 AM ASSISTANT MANAGER ECG-SCAN 05/11/2019 12:00 AM ASSISTANT MANAGER documented in this encounter Results * POC GLUCOSE (05/18/2019 11:59 AM ASSISTANT MANAGER) Glucose, POC 299 (H) 70 - 100 MG/DL MAIN LAB Specimen Performing Organization Address [facility] Ph [facility] Number MAIN LAB [address] [place] [address] * POC GLUCOSE (05/18/2019 7:21 AM ASSISTANT MANAGER) Glucose, POC 232 (H) 70 - 100 MG/DL MAIN LAB Specimen Performing Organization Address [facility] Ph one Number MAIN LAB [address] [place] [address] * BASIC METABOLIC PANEL (05/18/2019 5:02 AM ASSISTANT MANAGER) [facility] Sodium 138 137 - 147 MMOL/L MAIN LAB Potassium 4.5 3.5 - 5.1 MMOL/L MAIN LAB Chloride 105 98 - 110 MMOL/L MAIN LAB CO2 23 21 - 30 MMOL/L [facility] MAIN LAB Anion Gap 10 3 - 12 MAIN LAB Glucose 223 (H) 70 - 100 MG/DL MAIN LAB Blood Urea 27 (H) 7 - 25 MG/DL MAIN LAB Nitrogen Creatinine 0.88 0.4 - 1.00 MG/DL MAIN LAB Calcium 11.0 (H) 8.5 - 10.6 MG/DL MAIN LAB eGFR Non >60 >60 mL/min MAIN LAB Comment: [place] The eGFR is not validated f or use in drug dosing adjustments. Continue to use estimated creatinine clearance per dosing reference text. Please contact the Clinical Pharmacist for questions. eGFR >60 >60 mL/min KU MAIN LAB [place] Comment: The eGFR is not validated for use in drug dosing adjustments. Continue to use estimated creatinine clearance per dosing reference text. Please contact the Clinical Pharmacist for questions. Specimen Blood Performing Organization Address [facility] Ph one Number MAIN LAB [address] [place] [address] * CBC (05/18/2019 5:02 AM ASSISTANT MANAGER) [facility] White Blood 4.8 4.5 - 11.0 K/UL MAIN LAB Cells RBC 3.38 (L) 4.0 - 5.0 M/UL MAIN LAB Hemoglobin 10.8 (L) 12.0 - 15.0 GM/DL MAIN LAB Hematocrit 31.8 (L) 36 - 45 % MAIN LAB MCV 94.1 80 - 100 FL MAIN LAB MCH 31.9 26 - 34 PG MAIN LAB MCHC 33.9 32.0 - 36.0 G/DL MAIN LAB RDW 14.2 11 - 15 % MAIN LAB Platelet Count 296 150 - 400 K/UL MAIN LAB MPV 7.5 7 - 11 FL MAIN LAB Specimen Blood Performing Organization Address [facility] Ph one Number MAIN LAB [address] [place] [address] * POC GLUCOSE (05/18/2019 4:21 AM ASSISTANT MANAGER) [facility] Glucose, POC 251 (H) 70 - 100 MG/DL MAIN LAB Specimen Performing Organization Address [facility] Ph one Number MAIN LAB [address] [place] [address] * POC GLUCOSE (05/17/2019 8:58 PM ASSISTANT MANAGER) Glucose, POC 190 (H) 70 - 100 MG/DL MAIN LAB Specimen Performing Organization Address [facility] Ph one Number MAIN LAB [address] [place] [address] * POC GLUCOSE (05/17/2019 5:23 PM ASSISTANT MANAGER) Glucose, POC 203 (H) 70 - 100 MG/DL MAIN LAB Specimen Performing Organization Address [facility] one Number MAIN LAB [address] [place] [address] * VITAMIN B1 (THIAMINE) WHOLE BLD (05/17/2019 1:27 PM ASSISTANT MANAGER) [facility] Vitamin 136 REFERENCE LAB B1,Whole Blood Comment: Reference range: 70 to 180 Unit: nmol/L ADDITIONAL INFORMATION This test was developed and its performance characteristics determined by [facility] in a manner consistent with CLIA requirements. This test has not been cleared or approved by the U.S. Food and Drug Administration. [facility], [address] [place] [address] Specimen Blood Performing Organization Address [facility] one Number REFERENCE LAB REFERENCE LAB See results for address. * TROPONIN-I (05/17/2019 1:27 PM ASSISTANT MANAGER) [facility] Troponin-I 0.01 0.0 - 0.05 NG/ML MAIN LAB Specimen Blood Performing Organization Address [facility] Ph one Number MAIN LAB [address] [place] [address] * LIPASE (05/17/2019 1:27 PM ASSISTANT MANAGER) [facility] Lipase 45 11 - 82 U/L MAIN LAB Specimen Blood Performing Organization Address [facility] Ph one Number MAIN LAB [address] [place] [address] * AMMONIA (05/17/2019 1:27 PM ASSISTANT MANAGER) Pathologist [facility] Ammonia 62 (H) 9 - 35 MCMOL/L K[facility] MAIN LAB Specimen Blood Performing Organization Address [facility] one Number [facility]U MAIN LAB [address] [place] [address] * FOLATE, SERUM (05/17/2019 1:27 PM ASSISTANT MANAGER) [facility] Serum Folate >22.3Comment: NOTE NEW >3.9 NG/ML K[facility] MAIN LAB REFERENCE RANGES Specimen Blood Performing Organization Address [facility] one Number KU MAIN LAB [address] [place] [address] * VITAMIN B12 (05/17/2019 1:27 PM ASSISTANT MANAGER) [facility] Vitamin B12 512 180 - 914 PG/ML MAIN LAB Specimen Blood Performing Organization Address [facility] one Number MAIN LAB [address] [place] [address] * POC GLUCOSE (05/17/2019 11:10 AM ASSISTANT MANAGER) Pathologist [facility] Glucose, POC 263 (H) 70 - 100 MG/DL MAIN LAB Specimen Performing Organization Address [facility] one Number MAIN LAB [address] [place] [address] * BASIC METABOLIC PANEL (05/17/2019 9:49 AM ASSISTANT MANAGER) [facility] Sodium 137 137 - 147 MMOL/L KU MAIN LAB Potassium 3.8 3.5 - 5.1 MMOL/L [facility] MAIN LAB Chloride 102 98 - 110 MMOL/L [facility] MAIN LAB CO2 25 21 - 30 MMOL/L [facility] MAIN LAB Anion Gap 10 3 - 12 [facility] MAIN LAB Glucose 262 (H) 70 - 100 MG/DL [facility] MAIN LAB Blood Urea 31 (H) 7 - 25 MG/DL MAIN LAB Nitrogen Creatinine 1.15 (H) 0.4 - 1.00 MG/DL [facility] MAIN LAB Calcium 10.8 (H) 8.5 - 10.6 MG/DL MAIN LAB eGFR Non 46 (L) >60 mL/min MAIN LAB Comment: [place] The eGFR is not validated f or use in drug dosing adjustments. Continue to use estimated creatinine clearance per dosing reference text. Please contact the Clinical Pharmacist for questions. eGFR 55 (L) >60 mL/min K[facility] MAIN LAB [place] Comment: The eGFR is not validated for use in drug dosing adjustments. Continue to use estimated creatinine clearance per dosing reference text. Please contact the Clinical Pharmacist for questions. Specimen Blood Performing Organization Address [facility] one Number MAIN LAB [address] [place] [address] * CBC (05/17/2019 9:49 AM ASSISTANT MANAGER) White Blood 5.4 4.5 - 11.0 K/UL MAIN LAB Cells RBC 3.19 (L) 4.0 - 5.0 M/UL MAIN LAB Hemoglobin 10.5 (L) 12.0 - 15.0 GM/DL MAIN LAB Hematocrit 29.8 (L) 36 - 45 % MAIN LAB MCV 93.5 80 - 100 FL MAIN LAB MCH 33.0 26 - 34 PG MAIN LAB MCHC 35.3 32.0 - 36.0 G/DL MAIN LAB RDW 14.2 11 - 15 % MAIN LAB Platelet Count 292 150 - 400 K/UL MAIN LAB MPV 7.3 7 - 11 FL MAIN LAB Specimen Blood Performing Organization Address [facility] one Number MAIN LAB [address] [place] [address] * POC GLUCOSE (05/17/2019 8:06 AM ASSISTANT MANAGER) Glucose, POC 244 (H) 70 - 100 MG/DL MAIN LAB Specimen Performing Organization Address [facility] one Number MAIN LAB [address] [place] [address] * POC GLUCOSE (05/17/2019 2:26 AM ASSISTANT MANAGER) Glucose, POC 217 (H) 70 - 100 MG/DL MAIN LAB Specimen Performing Organization Address [facility] Ph one Number MAIN LAB [address] [place] [address] * POC GLUCOSE (05/16/2019 9:01 PM ASSISTANT MANAGER) Glucose, POC 200 (H) 70 - 100 MG/DL MAIN LAB Specimen Performing Organization Address [facility] Ph one Number MAIN LAB [address] [place] [address] * POC GLUCOSE (05/16/2019 5:28 PM ASSISTANT MANAGER) Glucose, POC 192 (H) 70 - 100 MG/DL [facility] MAIN LAB Specimen Performing Organization Address [facility] Ph one Number MAIN LAB [address] [place] [address] * POC GLUCOSE (05/16/2019 1:39 PM ASSISTANT MANAGER) Glucose, POC 319 (H) 70 - 100 MG/DL [facility] MAIN LAB Specimen Performing Organization Address [facility] Ph one Number MAIN LAB [address] [place] [address] * POC GLUCOSE (05/16/2019 11:08 AM ASSISTANT MANAGER) Glucose, POC 320 (H) 70 - 100 MG/DL MAIN LAB Specimen Performing Organization Address [facility] one Number MAIN LAB [address] [place] [address] * PHOSPHORUS (05/16/2019 10:15 AM ASSISTANT MANAGER) Phosphorus 3.2 2.0 - 4.5 MG/DL MAIN LAB Specimen Blood Performing Organization Address [facility] Ph one Number MAIN LAB [address] [place] [address] * MAGNESIUM (05/16/2019 10:15 AM ASSISTANT MANAGER) Magnesium 1.6 1.6 - 2.6 mg/dL MAIN LAB Specimen Blood Performing Organization Address [facility] one Number MAIN LAB [address] [place] [address] * COMPREHENSIVE METABOLIC PANEL (05/16/2019 10:15 AM ASSISTANT MANAGER) Sodium 135 (L) 137 - 147 MMOL/L KU MAIN LAB Potassium 4.0 3.5 - 5.1 MMOL/L [facility] MAIN LAB Chloride 100 98 - 110 MMOL/L [facility] MAIN LAB Glucose 301 (H) 70 - 100 MG/DL [facility] MAIN LAB Blood Urea 23 7 - 25 MG/DL [facility] MAIN LAB Nitrogen Creatinine 0.92 0.4 - 1.00 MG/DL [facility] MAIN LAB Calcium 10.5 8.5 - 10.6 MG/DL [facility] MAIN LAB Total Protein 6.3 6.0 - 8.0 G/DL [facility] MAIN LAB Total Bilirubin 0.5 0.3 - 1.2 MG/DL [facility] MAIN LAB Albumin 3.4 (L) 3.5 - 5.0 G/DL [facility] MAIN LAB Alk Phosphatase 59 25 - 110 U/L [facility] MAIN LAB AST (SGOT) 14 7 - 40 U/L [facility] MAIN LAB CO2 25 21 - 30 MMOL/L [facility] MAIN LAB ALT (SGPT) 14 7 - 56 U/L [facility] MAIN LAB Anion Gap 10 3 - 12 KU MAIN LAB eGFR Non 59 (L) >60 mL/min [facility] MAIN LAB Comment: [place] The eGFR is not validated f or use in drug dosing adjustments. Continue to use estimated creatinine clearance per dosing reference text. Please contact the Clinical Pharmacist for questions. eGFR >60 >60 mL/min [facility] MAIN LAB [place] Comment: The eGFR is not validated for use in drug dosing adjustments. Continue to use estimated creatinine clearance per dosing reference text. Please contact the Clinical Pharmacist for questions. Specimen Blood Performing Organization Address City/State/Zipcode Ph one Number KU MAIN LAB [address] [place] [address] * CBC AND DIFF (05/16/2019 10:15 AM ASSISTANT MANAGER) White Blood 6.0 4.5 - 11.0 K/UL [facility] MAIN LAB Cells RBC 3.21 (L) 4.0 - 5.0 M/UL [facility] MAIN LAB Hemoglobin 10.5 (L) 12.0 - 15.0 GM/DL [facility] MAIN LAB Hematocrit 30.1 (L) 36 - 45 % [facility] MAIN LAB MCV 93.8 80 - 100 FL [facility] MAIN LAB MCH 32.6 26 - 34 PG [facility] MAIN LAB MCHC 34.7 32.0 - 36.0 G/DL [facility] MAIN LAB RDW 13.9 11 - 15 % [facility] MAIN LAB Platelet Count 266 150 - 400 K/UL [facility] MAIN LAB MPV 7.3 7 - 11 FL [facility] MAIN LAB Neutrophils 84 (H) 41 - 77 % [facility] MAIN LAB Lymphocytes 6 (L) 24 - 44 % [facility] MAIN LAB Monocytes 8 4 - 12 % [facility] MAIN LAB Eosinophils 1 0 - 5 % [facility] MAIN LAB Basophils 1 0 - 2 % [facility] MAIN LAB Absolute 5.10 1.8 - 7.0 K/UL K[facility] MAIN LAB Neutrophil Count Absolute Lymph 0.30 (L) 1.0 - 4.8 K/UL [facility] MAIN LAB Count Absolute 0.50 0 - 0.80 K/UL [facility] MAIN LAB Monocyte Count Absolute 0.10 0 - 0.45 K/UL [facility] MAIN LAB Eosinophil Count Absolute 0.00 0 - 0.20 K/UL [facility] MAIN LAB Basophil Count Specimen Blood Performing Organization Address City/State/Zipcode Ph one Number KU MAIN LAB [address] [place] [address] * CT HEAD WO CONTRAST (05/16/2019 9:39 AM ASSISTANT MANAGER) Specimen Impressions Performed At 1. Subacute left frontal lobe infarct, increased in size from the area of [facility] RAD RESULTS diffusion restriction on the MRI from F 2019. 2. Subtle internal hyperdensities wit hin the infarct likely petechial hemorrhagic transformation. No parenchy mal hematoma. 3. Mild local mass effect without mid line shift. 4. Mild chronic microvascular ischemi c changes. Finalized by DENG ABBOTT M.D. on 05/16/2019 10:06 AM. Dictated by DENG ABBOTT M.D. on 05/16/2019 10:03 AM. Narrative Performed At CT HEAD WITHOUT CONTRAST [facility] RAD RESULTS HISTORY: 79 years old Female, seizures. TECHNIQUE: CT images of the head were acquired wit hout intravenous contrast. COMPARISON: MRI brain from May 12, 2019 FINDINGS: BRAIN PARENCHYMA: Hypodense left latera l inferior frontal lobe infarct, increased in size from area of restrict ed diffusion on MRI from May 12. Subtle internal hyperdensities likely p etechial hemorrhagic transformation without arthur parenchymal hemorrhage mi ld local mass effect without midline shift. No new loss of wagoner-white differ entiation. Mild patchy supratentorial white matter hypodensities. VENTRICLES/EXTRA-AXIAL SPACES: No hydro cephalus or extra-axial fluid collections. EXTRACRANIAL STRUCTURES: Normal bones a nd soft tissues. Visualized paranasal sinuses and mastoids are clear. Procedure Note Interface, Radiant Results - 05/16/2019 10:[address] HEAD WITHOUT CONTRAST HISTORY: 79 years old Female, seizures. TECHNIQUE: CT images of the head were acquired without intravenous contrast. COMPARISON: MRI brain from May 12, 2019 FINDINGS: BRAIN PARENCHYMA: Hypodense left lateral inferior frontal lobe infarct, increased in size from area of restricted diffusion on MRI from May 12. Subtle internal hyperdensities likely petechial hemorrhagic transformation without arthur parenchymal hemorrhage mild local mass effect without midline shift. No new loss of wagoner-white differentiation. Mild patchy supratentorial white matter hypodensities. VENTRICLES/EXTRA-AXIAL SPACES: No hydrocephalus or extra-axial fluid collections. EXTRACRANIAL STRUCTURES: Normal bones and soft tissues. Visualized paranasal sinuses and mastoids are clear. IMPRESSION 1. Subacute left frontal lobe infarct, increased in size from the area of diffusion restriction on the MRI from May 12, 2019. 2. Subtle internal hyperdensities withi n the infarct likely petechial hemorrhagic transformation. No parenchymal hematoma. 3. Mild local mass effect without midli ne shift. 4. Mild chronic microvascular ischemic changes. Finalized by DENG ABBOTT M.D. on 05/16/2019 10:06 AM. Dictated by DENG ABBOTT M.D. on 05/16/2019 10:03 AM. Performing Organization Address [facility] Ph one Number RAD RESULTS * POC GLUCOSE (05/16/2019 7:46 AM ASSISTANT MANAGER) Pathologist [facility] Glucose, POC 262 (H) 70 - 100 MG/DL MAIN LAB Specimen Performing Organization Address [facility] Ph one Number MAIN LAB [address] [place] [address] * CBC AND DIFF (05/16/2019 6:32 AM ASSISTANT MANAGER) White Blood 4.6 4.5 - 11.0 K/UL K[facility] MAIN LAB Cells RBC 3.56 (L) 4.0 - 5.0 M/UL [facility] MAIN LAB Hemoglobin 11.7 (L) 12.0 - 15.0 GM/DL [facility] MAIN LAB Hematocrit 34.0 (L) 36 - 45 % [facility] MAIN LAB MCV 95.6 80 - 100 FL [facility] MAIN LAB MCH 32.8 26 - 34 PG [facility] MAIN LAB MCHC 34.3 32.0 - 36.0 G/DL [facility] MAIN LAB RDW 14.1 11 - 15 % [facility] MAIN LAB Platelet Count 267 150 - 400 K/UL [facility] MAIN LAB MPV 7.4 7 - 11 FL [facility] MAIN LAB Neutrophils 72 41 - 77 % [facility] MAIN LAB Lymphocytes 11 (L) 24 - 44 % [facility] MAIN LAB Monocytes 14 (H) 4 - 12 % [facility] MAIN LAB Eosinophils 2 0 - 5 % [facility] MAIN LAB Basophils 1 0 - 2 % [facility] MAIN LAB Absolute 3.30 1.8 - 7.0 K/UL K[facility] MAIN LAB Neutrophil Count Absolute Lymph 0.50 (L) 1.0 - 4.8 K/UL [facility] MAIN LAB Count Absolute 0.60 0 - 0.80 K/UL [facility] MAIN LAB Monocyte Count Absolute 0.10 0 - 0.45 K/UL [facility] MAIN LAB Eosinophil Count Absolute 0.00 0 - 0.20 K/UL [facility] MAIN LAB Basophil Count Specimen Blood Performing Organization Address [facility] one Number RICK MAIN LAB [address] [place] [address] * BASIC METABOLIC PANEL (05/16/2019 6:32 AM ASSISTANT MANAGER) Sodium 135 (L) 137 - 147 MMOL/L K[facility] MAIN LAB Potassium 4.0 3.5 - 5.1 MMOL/L [facility] MAIN LAB Chloride 100 98 - 110 MMOL/L [facility] MAIN LAB CO2 23 21 - 30 MMOL/L [facility] MAIN LAB Anion Gap 12 3 - 12 MAIN LAB Glucose 247 (H) 70 - 100 MG/DL [facility] MAIN LAB Blood Urea 24 7 - 25 MG/DL [facility] MAIN LAB Nitrogen Creatinine 0.95 0.4 - 1.00 MG/DL [facility] MAIN LAB Calcium 10.6 8.5 - 10.6 MG/DL MAIN LAB eGFR Non 57 (L) >60 mL/min MAIN LAB Comment: [place] The eGFR is not validated f or use in drug dosing adjustments. Continue to use estimated creatinine clearance per dosing reference text. Please contact the Clinical Pharmacist for questions. eGFR >60 >60 mL/min MAIN LAB [place] Comment: The eGFR is not validated for use in drug dosing adjustments. Continue to use estimated creatinine clearance per dosing reference text. Please contact the Clinical Pharmacist for questions. Specimen Blood Performing Organization Address [facility] one Number MAIN LAB [address] [place] [address] * POC GLUCOSE (05/15/2019 10:07 PM ASSISTANT MANAGER) Glucose, POC 177 (H) 70 - 100 MG/DL MAIN LAB Specimen Performing Organization Address [facility] one Number MAIN LAB [address] [place] [id number] * POC GLUCOSE (05/15/2019 5:25 PM ASSISTANT MANAGER) Glucose, POC 221 (H) 70 - 100 MG/DL MAIN LAB Specimen Performing Organization Address [facility]/Zipcode Ph one Number MAIN LAB [address] [place] [address] * POC GLUCOSE (05/15/2019 11:50 AM ASSISTANT MANAGER) Pathologist [facility] Glucose, POC 255 (H) 70 - 100 MG/DL K[facility] MAIN LAB Specimen Performing Organization Address [facility] Ph one Number RICK MAIN LAB [address] [place] [id number] * CBC AND DIFF (05/15/2019 8:14 AM ASSISTANT MANAGER) [facility] White Blood 5.3 4.5 - 11.0 K/UL K[facility] MAIN LAB Cells RBC 3.40 (L) 4.0 - 5.0 M/UL [facility] MAIN LAB Hemoglobin 11.1 (L) 12.0 - 15.0 GM/DL K[facility] MAIN LAB Hematocrit 31.6 (L) 36 - 45 % [facility] MAIN LAB MCV 92.9 80 - 100 FL [facility] MAIN LAB MCH 32.5 26 - 34 PG [facility] MAIN LAB MCHC 35.0 32.0 - 36.0 G/DL [facility] MAIN LAB RDW 14.1 11 - 15 % [facility] MAIN LAB Platelet Count 264 150 - 400 K/UL [facility] MAIN LAB MPV 7.3 7 - 11 FL K[facility] MAIN LAB Neutrophils 79 (H) 41 - 77 % [facility] MAIN LAB Lymphocytes 9 (L) 24 - 44 % [facility] MAIN LAB Monocytes 10 4 - 12 % [facility] MAIN LAB Eosinophils 1 0 - 5 % [facility] MAIN LAB Basophils 1 0 - 2 % [facility] MAIN LAB Absolute 4.30 1.8 - 7.0 K/UL [facility] MAIN LAB Neutrophil Count Absolute Lymph 0.50 (L) 1.0 - 4.8 K/UL [facility] MAIN LAB Count Absolute 0.50 0 - 0.80 K/UL [facility] MAIN LAB Monocyte Count Absolute 0.10 0 - 0.45 K/UL [facility] MAIN LAB Eosinophil Count Absolute 0.00 0 - 0.20 K/UL [facility] MAIN LAB Basophil Count Specimen Blood Performing Organization Address [facility] Ph one Number MAIN LAB [address] [place] [address] * BASIC METABOLIC PANEL (05/15/2019 8:14 AM ASSISTANT MANAGER) [facility] Sodium 136 (L) 137 - 147 MMOL/L K[facility] MAIN LAB Potassium 3.7 3.5 - 5.1 MMOL/L [facility] MAIN LAB Chloride 101 98 - 110 MMOL/L [facility] MAIN LAB CO2 25 21 - 30 MMOL/L [facility] MAIN LAB Anion Gap 10 3 - 12 MAIN LAB Glucose 268 (H) 70 - 100 MG/DL MAIN LAB Blood Urea 27 (H) 7 - 25 MG/DL MAIN LAB Nitrogen Creatinine 1.02 (H) 0.4 - 1.00 MG/DL MAIN LAB Calcium 10.6 8.5 - 10.6 MG/DL MAIN LAB eGFR Non 53 (L) >60 mL/min MAIN LAB Comment: [place] The eGFR is not validated f or use in drug dosing adjustments. Continue to use estimated creatinine clearance per dosing reference text. Please contact the Clinical Pharmacist for questions. eGFR >60 >60 mL/min MAIN LAB [place] Comment: The eGFR is not validated for use in drug dosing adjustments. Continue to use estimated creatinine clearance per dosing reference text. Please contact the Clinical Pharmacist for questions. Specimen Blood Performing Organization Address [facility] Ph one Number MAIN LAB [address] [place] [address] * POC GLUCOSE (05/15/2019 7:23 AM ASSISTANT MANAGER) Glucose, POC 263 (H) 70 - 100 MG/DL MAIN LAB Specimen Performing Organization Address [facility] Ph one Number MAIN LAB [address] [place] [address] * POC GLUCOSE (05/14/2019 9:25 PM ASSISTANT MANAGER) Glucose, POC 243 (H) 70 - 100 MG/DL MAIN LAB Specimen Performing Organization Address [facility] Ph one Number MAIN LAB [address] [place] [address] * POC GLUCOSE (05/14/2019 5:25 PM ASSISTANT MANAGER) Glucose, POC 220 (H) 70 - 100 MG/DL MAIN LAB Specimen Performing Organization Address [facility] Ph one Number MAIN LAB [address] [place] [address] * POC GLUCOSE (05/14/2019 12:09 PM ASSISTANT MANAGER) Glucose, POC 269 (H) 70 - 100 MG/DL MAIN LAB Specimen Performing Organization Address [facility] Ph one Number MAIN LAB [address] [place] [address] * POC GLUCOSE (05/14/2019 9:02 AM ASSISTANT MANAGER) Glucose, POC 247 (H) 70 - 100 MG/DL [facility] MAIN LAB Specimen Performing Organization Address [facility] Ph one Number [facility] MAIN LAB [address] [place] [address] * CBC AND DIFF (05/14/2019 4:00 AM ASSISTANT MANAGER) Pathologist [facility] White Blood 6.7 4.5 - 11.0 K/UL [facility] MAIN LAB Cells RBC 3.27 (L) 4.0 - 5.0 M/UL [facility] MAIN LAB Hemoglobin 10.6 (L) 12.0 - 15.0 GM/DL [facility] MAIN LAB Hematocrit 30.9 (L) 36 - 45 % [facility] MAIN LAB MCV 94.5 80 - 100 FL [facility] MAIN LAB MCH 32.4 26 - 34 PG [facility] MAIN LAB MCHC 34.3 32.0 - 36.0 G/DL [facility] MAIN LAB RDW 13.8 11 - 15 % [facility] MAIN LAB Platelet Count 216 150 - 400 K/UL [facility] MAIN LAB MPV 7.8 7 - 11 FL [facility] MAIN LAB Neutrophils 79 (H) 41 - 77 % [facility] MAIN LAB Lymphocytes 8 (L) 24 - 44 % [facility] MAIN LAB Monocytes 11 4 - 12 % [facility] MAIN LAB Eosinophils 1 0 - 5 % [facility] MAIN LAB Basophils 1 0 - 2 % [facility] MAIN LAB Absolute 5.30 1.8 - 7.0 K/UL [facility] MAIN LAB Neutrophil Count Absolute Lymph 0.50 (L) 1.0 - 4.8 K/UL [facility] MAIN LAB Count Absolute 0.80 0 - 0.80 K/UL [facility] MAIN LAB Monocyte Count Absolute 0.00 0 - 0.45 K/UL [facility] MAIN LAB Eosinophil Count Absolute 0.10 0 - 0.20 K/UL [facility] MAIN LAB Basophil Count Specimen Blood Performing Organization Address [facility] Ph one Number [facility] MAIN LAB [address] [place] [address] * BASIC METABOLIC PANEL (05/14/2019 4:00 AM ASSISTANT MANAGER) Pathologist [facility] Sodium 133 (L) 137 - 147 MMOL/L [facility] MAIN LAB Potassium 3.7 3.5 - 5.1 MMOL/L [facility] MAIN LAB Chloride 100 98 - 110 MMOL/L [facility] MAIN LAB CO2 23 21 - 30 MMOL/L [facility] MAIN LAB Anion Gap 10 3 - 12 MAIN LAB Glucose 229 (H) 70 - 100 MG/DL MAIN LAB Blood Urea 16 7 - 25 MG/DL MAIN LAB Nitrogen Creatinine 0.90 0.4 - 1.00 MG/DL MAIN LAB Calcium 10.1 8.5 - 10.6 MG/DL MAIN LAB eGFR Non >60 >60 mL/min MAIN LAB Comment: [place] The eGFR is not validated f or use in drug dosing adjustments. Continue to use estimated creatinine clearance per dosing reference text. Please contact the Clinical Pharmacist for questions. eGFR >60 >60 mL/min MAIN LAB [place] Comment: The eGFR is not validated for use in drug dosing adjustments. Continue to use estimated creatinine clearance per dosing reference text. Please contact the Clinical Pharmacist for questions. Specimen Blood Performing Organization Address [facility] Ph one Number MAIN LAB [address] [place] [address] * POC GLUCOSE (05/13/2019 9:03 PM ASSISTANT MANAGER) Glucose, POC 211 (H) 70 - 100 MG/DL MAIN LAB Specimen Performing Organization Address [facility] Ph one Number MAIN LAB [address] [place] [address] * POC GLUCOSE (05/13/2019 5:39 PM ASSISTANT MANAGER) Glucose, POC 185 (H) 70 - 100 MG/DL MAIN LAB Specimen Performing Organization Address [facility] [facility] MA[facility] LAB [address] [place] [address] * POC GLUCOSE (05/13/2019 12:06 PM ASSISTANT MANAGER) Glucose, POC 241 (H) 70 - 100 MG/DL MAIN LAB Specimen Performing Organization Address [facility] Ph one Number MAIN LAB [address] [place] [address] * POC GLUCOSE (05/13/2019 6:34 AM ASSISTANT MANAGER) Glucose, POC 212 (H) 70 - 100 MG/DL MAIN LAB Specimen Performing Organization Address [facility] Ph one Number MAIN LAB [address] [place] [address] * CBC AND DIFF (05/13/2019 3:30 AM ASSISTANT MANAGER) Pathologist [facility] White Blood 5.6 4.5 - 11.0 K/UL KU MAIN LAB Cells RBC 3.27 (L) 4.0 - 5.0 M/UL K[facility] MAIN LAB Hemoglobin 10.5 (L) 12.0 - 15.0 GM/DL KU MAIN LAB Hematocrit 31.0 (L) 36 - 45 % [facility] MAIN LAB MCV 94.8 80 - 100 FL [facility] MAIN LAB MCH 32.0 26 - 34 PG [facility] MAIN LAB MCHC 33.8 32.0 - 36.0 G/DL K[facility] MAIN LAB RDW 13.7 11 - 15 % [facility] MAIN LAB Platelet Count 230 150 - 400 K/UL [facility] MAIN LAB MPV 7.8 7 - 11 FL K[facility] MAIN LAB Neutrophils 76 41 - 77 % [facility] MAIN LAB Lymphocytes 10 (L) 24 - 44 % [facility] MAIN LAB Monocytes 12 4 - 12 % [facility] MAIN LAB Eosinophils 1 0 - 5 % [facility] MAIN LAB Basophils 1 0 - 2 % [facility] MAIN LAB Absolute 4.30 1.8 - 7.0 K/UL K[facility] MAIN LAB Neutrophil Count Absolute Lymph 0.60 (L) 1.0 - 4.8 K/UL [facility] MAIN LAB Count Absolute 0.60 0 - 0.80 K/UL [facility] MAIN LAB Monocyte Count Absolute 0.10 0 - 0.45 K/UL [facility] MAIN LAB Eosinophil Count Absolute 0.00 0 - 0.20 K/UL [facility] MAIN LAB Basophil Count Specimen Blood Performing Organization Address City/State/Zipcode Ph one Number KU MAIN LAB [address] [place] [address] * BASIC METABOLIC PANEL (05/13/2019 3:30 AM ASSISTANT MANAGER) Pathologist [facility] Sodium 137 137 - 147 MMOL/L K[facility] MAIN LAB Potassium 3.7 3.5 - 5.1 MMOL/L [facility] MAIN LAB Chloride 104 98 - 110 MMOL/L [facility] MAIN LAB CO2 24 21 - 30 MMOL/L [facility] MAIN LAB Anion Gap 9 3 - 12 [facility] MAIN LAB Glucose 194 (H) 70 - 100 MG/DL K[facility] MAIN LAB Blood Urea 13 7 - 25 MG/DL K[facility] MAIN LAB Nitrogen Creatinine 0.82 0.4 - 1.00 MG/DL K[facility] MAIN LAB Calcium 9.7 8.5 - 10.6 MG/DL K[facility] MAIN LAB eGFR Non >60 >60 mL/min [facility] MAIN LAB Comment: [place] The eGFR is not validated f or use in drug dosing adjustments. Continue to use estimated creatinine clearance per dosing reference text. Please contact the Clinical Pharmacist for questions. eGFR >60 >60 mL/min MAIN LAB [place] Comment: The eGFR is not validated for use in drug dosing adjustments. Continue to use estimated creatinine clearance per dosing reference text. Please contact the Clinical Pharmacist for questions. Specimen Blood Performing Organization Address [facility] Ph one Number MAIN LAB [address] [place] [address] * POC GLUCOSE (05/12/2019 10:18 PM ASSISTANT MANAGER) Glucose, POC 202 (H) 70 - 100 MG/DL MAIN LAB Specimen Performing Organization Address [facility] Ph one Number MAIN LAB [address] [place] [address] * POC GLUCOSE (05/12/2019 5:05 PM ASSISTANT MANAGER) Glucose, POC 238 (H) 70 - 100 MG/DL MAIN LAB Specimen Performing Organization Address [facility] one Number MAIN LAB [address] [place] [address] * TROPONIN-I (05/12/2019 5:04 PM ASSISTANT MANAGER) Troponin-I 0.01 0.0 - 0.05 NG/ML MAIN LAB Specimen Blood Performing Organization Address [facility] one Number MAIN LAB [address] [place] [address] * MAGNESIUM (05/12/2019 3:06 PM ASSISTANT MANAGER) Magnesium 2.7 (H) 1.6 - 2.6 mg/dL MAIN LAB Specimen Blood Performing Organization Address [facility] one Number MAIN LAB [address] [place] [address] * POC GLUCOSE (05/12/2019 11:57 AM ASSISTANT MANAGER) Glucose, POC 271 (H) 70 - 100 MG/DL MAIN LAB Specimen Performing Organization Address [facility] one Number MAIN LAB [address] [place] [address] * TROPONIN-I (05/12/2019 11:12 AM ASSISTANT MANAGER) Troponin-I 0.02 0.0 - 0.05 NG/ML MAIN LAB Specimen Blood Performing Organization Address City/State/Zipcode Ph one Number Cinemagram MAIN LAB [address] [place] [address] * 2D + DOPPLER ECHO (05/12/2019 10:30 AM ASSISTANT MANAGER) IVS 1.21 0.6 - 0.9 cm OTHER OUTSIDE LAB LVIDD 4.36 3.8 - 5.2 cm OTHER OUTSIDE LAB LVIDS 2.95 2.2 - 3.5 cm OTHER OUTSIDE LAB PW 0.91 0.6 - 0.9 cm OTHER OUTSIDE LAB Left Ventricle 107.56 46 - 106 mL OTHER OUTSIDE Diastolic LAB Volume Left Ventricle 50.98 29 - 61 mL OTHER OUTSIDE Diastolic LAB Volume Index Left Ventricle 20.75 14 - 42 mL OTHER OUTSIDE Systolic Volume LAB Left Ventricle 9.83 8 - 24 mL OTHER OUTSIDE Systolic Volume LAB Index TDI lateral e' 0.11 m/s OTHER OUTSIDE LAB Right 2.33 1.9 - 3.5 cm OTHER OUTSIDE Ventricular Mid LAB Diameter LA size 3.64 2.7 - 3.8 cm OTHER OUTSIDE LAB LA volume 73.95 22 - 52 mL OTHER OUTSIDE LAB Right Atrial 18.78 <18 cm2 OTHER OUTSIDE Area LAB Right Atrial 5.21 2.2 - 2.8 cm OTHER OUTSIDE Major Dimension LAB AV peak 2.20 m/s OTHER OUTSIDE velocity LAB MV Peak A Corie 1.32 m/s OTHER OUTSIDE LAB MV Peak E Corie 1.09 m/s OTHER OUTSIDE PW LAB Right 3.42 2.5 - 4.1 cm OTHER OUTSIDE Ventricular LAB Basal Diameter Right Heart 0.17 m/s OTHER OUTSIDE Systolic TDI S' LAB Right Heart 2.04 >1.7 cm OTHER OUTSIDE Systolic Mmode LAB TAPSE Sinus 3.02 2.4 - 3.6 cm OTHER OUTSIDE LAB Ascending aorta 3.32 cm OTHER OUTSIDE LAB BSA 2.11 m2 OTHER OUTSIDE LAB CV ECHO PV Brandon RN, Vita RN OTHER OUTSIDE DIRECTOR OF OPERATIONS SUPPORT LAB FS 32.34 28 - 44 % OTHER OUTSIDE LAB EF 54.98 % OTHER OUTSIDE LAB LV mass 158.03 67 - 162 g OTHER OUTSIDE LAB RWT 0.42 <=0.42 OTHER OUTSIDE LAB E/A ratio 0.83 OTHER OUTSIDE LAB TV rest 37 mmHg OTHER OUTSIDE pulmonary LAB artery pressure Lateral E/E' 9.91 OTHER OUTSIDE ratio LAB Left Atrium 35.05 16 - 34 OTHER OUTSIDE Index LAB Cardiology Siemens [id number] OTHER OUTSIDE Ultrasound LAB Machine Left Ventricle 74.89 43 - 95 g/m2 OTHER OUTSIDE Mass Index LAB TDI Medial e' 0.112 m/s OTHER OUTSIDE LAB Medial E/E' 9.73 OTHER OUTSIDE ratio LAB ECHO EF 65 % OTHER OUTSIDE LAB Specimen Narrative Performed At OTHER OUTSIDE LAB Normal left ventricular systolic fun ction with an EF of 65%. Normal right ventricular size and fu nction Estimated peak systolic PA pressure = 37 mmHg No evidence of a Patent Foramen Oval e (PFO) or intracardiac shunt as assessed by both color doppler and cont rast saline injection (with and without valsalva). No significant valvular disease iden tified. No pericardial effusion No prior echocardiograms for comparison . Performing Organization Address [facility] Ph one Number OTHER OUTSIDE LAB * POC GLUCOSE (05/12/2019 6:33 AM ASSISTANT MANAGER) Glucose, POC 190 (H) 70 - 100 MG/DL KU MAIN LAB Specimen Performing Organization Address [facility] one Number KU MAIN LAB [address] [place] [address] * MAGNESIUM (05/12/2019 3:30 AM ASSISTANT MANAGER) Magnesium 1.1 (L) 1.6 - 2.6 mg/dL K[facility] MAIN LAB Specimen Performing Organization Address [facility] one Number MAIN LAB [address] [place] [address] * COMPREHENSIVE METABOLIC PANEL (05/12/2019 3:30 AM ASSISTANT MANAGER) Sodium 136 (L) 137 - 147 MMOL/L K[facility] MAIN LAB Potassium 4.1 3.5 - 5.1 MMOL/L [facility] MAIN LAB Chloride 105 98 - 110 MMOL/L K[facility] MAIN LAB Glucose 186 (H) 70 - 100 MG/DL [facility] MAIN LAB Blood Urea 16 7 - 25 MG/DL [facility] MAIN LAB Nitrogen Creatinine 0.83 0.4 - 1.00 MG/DL [facility] MAIN LAB Calcium 9.4 8.5 - 10.6 MG/DL K[facility] MAIN LAB Total Protein 5.6 (L) 6.0 - 8.0 G/DL [facility] MAIN LAB Total Bilirubin 0.6 0.3 - 1.2 MG/DL K[facility] MAIN LAB Albumin 3.3 (L) 3.5 - 5.0 G/DL [facility] MAIN LAB Alk Phosphatase 53 25 - 110 U/L K[facility] MAIN LAB AST (SGOT) 23 7 - 40 U/L [facility] MAIN LAB CO2 20 (L) 21 - 30 MMOL/L K[facility] MAIN LAB ALT (SGPT) 14 7 - 56 U/L [facility] MAIN LAB Anion Gap 11 3 - 12 K[facility] MAIN LAB eGFR Non >60 >60 mL/min [facility] MAIN LAB Comment: [place] The eGFR is not validated f or use in drug dosing adjustments. Continue to use estimated creatinine clearance per dosing reference text. Please contact the Clinical Pharmacist for questions. eGFR >60 >60 mL/min [facility] MAIN LAB [place] Comment: The eGFR is not validated for use in drug dosing adjustments. Continue to use estimated creatinine clearance per dosing reference text. Please contact the Clinical Pharmacist for questions. Specimen Performing Organization Address [facility] Ph one Number MAIN LAB [address] [place] [address] * PHOSPHORUS (05/12/2019 3:30 AM ASSISTANT MANAGER) Pathologist [facility] Phosphorus 3.9Comment: NOTE NEW REFERENCE 2.0 - 4.5 MG/DL [facility] MAIN LAB RANGES Specimen Blood Performing Organization Address [facility] Ph one Number MAIN LAB [address] [place] [address] * IONIZED CALCIUM (05/12/2019 3:30 AM ASSISTANT MANAGER) Pathologist [facility] Ionized Calcium 1.26 1.0 - 1.3 MMOL/L [facility] MAIN LAB Specimen Blood Performing Organization Address [facility] Ph one Number MAIN LAB [address] [place] [address] * CBC AND DIFF (05/12/2019 3:30 AM ASSISTANT MANAGER) Pathologist [facility] White Blood 6.8 4.5 - 11.0 K/UL [facility] MAIN LAB Cells RBC 3.29 (L) 4.0 - 5.0 M/UL [facility] MAIN LAB Hemoglobin 10.5 (L) 12.0 - 15.0 GM/DL [facility] MAIN LAB Hematocrit 31.1 (L) 36 - 45 % [facility] MAIN LAB MCV 94.5 80 - 100 FL [facility] MAIN LAB MCH 32.1 26 - 34 PG [facility] MAIN LAB MCHC 34.0 32.0 - 36.0 G/DL [facility] MAIN LAB RDW 14.2 11 - 15 % [facility] MAIN LAB Platelet Count 237 150 - 400 K/UL [facility] MAIN LAB MPV 7.9 7 - 11 FL [facility] MAIN LAB Neutrophils 80 (H) 41 - 77 % [facility] MAIN LAB Lymphocytes 9 (L) 24 - 44 % [facility] MAIN LAB Monocytes 11 4 - 12 % [facility] MAIN LAB Eosinophils 0 0 - 5 % [facility] MAIN LAB Basophils 0 0 - 2 % [facility] MAIN LAB Absolute 5.40 1.8 - 7.0 K/UL [facility] MAIN LAB Neutrophil Count Absolute Lymph 0.60 (L) 1.0 - 4.8 K/UL [facility] MAIN LAB Count Absolute 0.80 0 - 0.80 K/UL [facility] MAIN LAB Monocyte Count Absolute 0.00 0 - 0.45 K/UL [facility] MAIN LAB Eosinophil Count Absolute 0.00 0 - 0.20 K/UL [facility] MAIN LAB Basophil Count Specimen Blood Performing Organization Address [facility] Ph one Number [facility] MAIN LAB [address] [place] [address] * LIPID PROFILE (05/12/2019 3:30 AM ASSISTANT MANAGER) Cholesterol 202 (H) <200 MG/DL [facility] MAIN LAB Triglycerides 249 (H) <150 MG/DL [facility] MAIN LAB HDL 36 (L) >40 MG/DL [facility] MAIN LAB LDL 120 (H) <100 mg/dL [facility] MAIN LAB VLDL 50 MG/DL [facility] MAIN LAB Non HDL 166 MG/DL [facility] MAIN LAB Cholesterol Comment: Calculated non-HDL Cholesterol (non-HDL-C) indirectly measures LDL-C, Lp(a), IDL-C, and VLDL-C. It is a surrogate marker for Apoprotein B. Goal should be less than 130 mg/dL. Specimen Blood Performing Organization Address [facility] Ph one Number KU MAIN LAB [address] [place] [address] * MRI HEAD WO CONTRAST (05/12/2019 1:58 AM ASSISTANT MANAGER) Specimen Impressions Performed At 1. Acute wedge-shaped infarct in the left MCA territory corresponding to area [facility] RAD RESULTS of perfusion abnormality on recent CT. 2. Punctate subcortical acute infarct within the posterior right parietal lobe. 3. No other infarcts identified. 4. Mild supratentorial white matter F LAIR hyperintensities, likely chronic small vessel ischemic changes. Approved by Otoniel Cohen MD on 05/12/19 9:22 AM By my electronic signature, I attest th at I have personally reviewed the images for this examination and formulated the interpretations and opinions expressed in this report Finalized by Raleigh Palacios M.D. on 9:24 AM. Dictated by Otoniel Cohen MD on 05/12/2019 8:39 AM. Narrative Performed At EXAM: MRI BRAIN [facility] RAD RESULTS HISTORY: stroke TECHNIQUE: Multiplanar and multisequenc e MR imaging of the head was performed. COMPARISON: CTA head and neck May 11, 2019 FINDINGS: Raleigh Palacios M.D. has personally rev iewed these images and formulated the interpretations and opinions expressed in this report. Redemonstration of acute left MCA adi tory infarct within the inferior left frontal lobe and anterior insular sylvie x with restricted diffusion and mild FLAIR hyperintensity. Additional tiny a cute subcortical infarct within the posterior right parietal lobe. Scattere d areas of wagoner-white matter FLAIR hyperintensity. The ventricles and suba rachnoid spaces are normal in size and configuration. There is no midline shif t. Procedure Note Interface, Radiant Results - 05/12/2019 9:27 AM ASSISTANT MANAGER EXAM: MRI BRAIN HISTORY: stroke TECHNIQUE: Multiplanar and multisequence MR imaging of the head was performed. COMPARISON: CTA head and neck May 11, 2019 FINDINGS: Raleigh Palacios M.D. has personally reviewed these images and formulated the interpretations and opinions expressed in this report. Redemonstration of acute left MCA territory infarct within the inferior left frontal lobe and anterior insular cortex with restricted diffusion and mild FLAIR hyperintensity. Additional tiny acute subcortical infarct within the posterior right parietal lobe. Scattered areas of wagoner-white matter FLAIR hyperintensity. The ventricles and subarachnoid spaces are normal in size and configuration. There is no midline shift. IMPRESSION 1. Acute wedge-shaped infarct in the le ft MCA territory corresponding to area of perfusion abnormality on recent CT. 2. Punctate subcortical acute infarct w ithin the posterior right parietal lobe. 3. No other infarcts identified. 4. Mild supratentorial white matter FLA IR hyperintensities, likely chronic small vessel ischemic changes. Approved by Otoniel Cohen MD on 05/12/2019 9:22 AM By my electronic signature, I attest that I have personally reviewed the images for this examination and formulated the interpretations and opinions expressed in this report Finalized by Raleigh Palacios M.D. on 05/12/2019 9:24 AM. Dictated by Otoniel Cohen MD on 05/12/2019 8:39 AM. Performing Organization Address [facility] Ph one Number KU RAD RESULTS * CBC AND DIFF (05/12/2019 12:20 AM ASSISTANT MANAGER) White Blood 7.2 4.5 - 11.0 K/UL K[facility] MAIN LAB Cells RBC 3.56 (L) 4.0 - 5.0 M/UL [facility] MAIN LAB Hemoglobin 11.6 (L) 12.0 - 15.0 GM/DL K[facility] MAIN LAB Hematocrit 33.8 (L) 36 - 45 % [facility] MAIN LAB MCV 94.9 80 - 100 FL [facility] MAIN LAB MCH 32.4 26 - 34 PG [facility] MAIN LAB MCHC 34.2 32.0 - 36.0 G/DL [facility] MAIN LAB RDW 14.3 11 - 15 % [facility] MAIN LAB Platelet Count 246 150 - 400 K/UL [facility] MAIN LAB MPV 8.3 7 - 11 FL [facility] MAIN LAB Neutrophils 86 (H) 41 - 77 % [facility] MAIN LAB Lymphocytes 6 (L) 24 - 44 % [facility] MAIN LAB Monocytes 8 4 - 12 % [facility] MAIN LAB Eosinophils 0 0 - 5 % [facility] MAIN LAB Basophils 0 0 - 2 % [facility] MAIN LAB Absolute 6.10 1.8 - 7.0 K/UL [facility] MAIN LAB Neutrophil Count Absolute Lymph 0.40 (L) 1.0 - 4.8 K/UL [facility] MAIN LAB Count Absolute 0.60 0 - 0.80 K/UL [facility] MAIN LAB Monocyte Count Absolute 0.00 0 - 0.45 K/UL [facility] MAIN LAB Eosinophil Count Absolute 0.00 0 - 0.20 K/UL [facility] MAIN LAB Basophil Count Specimen Performing Organization Address [facility] one Number KU MAIN LAB [address] [place] [address] * HEMOGLOBIN A1C (05/12/2019 12:20 AM ASSISTANT MANAGER) Hemoglobin A1C 8.4 (H) 4.0 - 6.0 % [facility] MAIN LAB Comment: The ADA recommends that most patients with type 1 and type 2 diabetes maintain an A1c level <7%. Specimen Performing Organization Address [facility] Ph one Number [facility]U MAIN LAB [address] [place] [address] * PROTIME INR (PT) (05/12/2019 12:20 AM ASSISTANT MANAGER) INR 1.2 0.8 - 1.2 MAIN LAB Specimen Blood Performing Organization Address City/State/Zipcode Ph one Number MAIN LAB [address] [place] [address] * CT BRAIN PERF (05/12/2019 12:07 AM ASSISTANT MANAGER) Specimen Addenda Addendum by Ray Mathews MD on 05/12/2019 1:31 AM Finalized by Champ Mathews MD, PhD on 05/12/2019 12:35 AM. Dictated by Cecilio Montez M.D. on 05/12/2019 12:08 AM.Addendum: Addition to clinical history: Confusion, decreased response, right-sided neglect Approved by Cecilio Montez M.D. on 05/12/2019 1:13 AM By my electronic signature, I attest that I have personally reviewed the images for this examination and formulated the interpretations and opinions expressed in this report Finalized by Champ Mathews MD, PhD on 05/12/2019 1:28 AM. Dictated by Cecilio Montez M.D. on 05/12/2019 1:12 AM. Impressions Performed At CTA head: [facility] RAD RESULTS 1. Abrupt occlusion of the anterior l eft M2 division. 2. Low-attenuation and loss of wagoner-w ginger matter differentiation within the left MCA territory (including inferior left frontal lobe, insular cortex, and left basal ganglia) compatible with are as of evolving acute infarct. 3. No acute intracranial hemorrhage. CTA neck: 1. Mild mixed atherosclerotic plaque without significant carotid or vertebral stenosis according to NASCET criteria. 2. Few small nodules in the visualize d lung apices. In a high-risk patient, follow-up CT of the chest in 12 months could be obtained for further evaluation. In a low-risk patient, no further follo w-up is required. CT perfusion: 1. Small matched perfusion defect in the anterior left MCA territory compatible with completed infarct. 2. Surrounding mismatch perfusion def ect approximately equal in volume to area of core infarct, compatible with 50%isc hemic penumbra. Dr. Montez discussed findings via tele phone with Tony Muniz MD on 05/12/2019 12:21 AM By my electronic signature, I attest th at I have personally reviewed the images for this examination and formulated the interpretations and opinions expressed in this report Narrative Performed At EXAM: CTA HEAD AND NECK, CTA BRAIN PERFUSION K[facility] RAD RESULTS HISTORY: Abnormal neurologic exam TECHNIQUE: Multiple contiguous axial im ages were obtained of the brain and neck following the administration of IV c ontrast. CTA maximum density projection images were obtained of the brain and n jessy with image post processing. Perfusion imaging was also obtained w ith CBV, MTT, TTD, and CBF mapping. COMPARISON:Outside CTA head/neck earlie r same day FINDINGS: CTA head: The ventricles and subarachnoid spaces are normal in size and configuration. Hypodensity and loss of wagoner-white mike er differentiation within the inferior left frontal lobe and anterior insular cortex, as well as the left basal ganglia. The wagoner white matter interfac es are otherwise maintained. There is no midline shift or herniation. There is n o evidence of acute intracranial hemorrhage. The basal cisterns are hudson nt. The calvarium is intact. Occlusion of the anterior left M2 divis ion. Minimal calcific ICA plaque. The distal internal carotid, vertebral, and basilar arteries are patent without focal narrowing or occlusion. The anter ior, right middle, and posterior cerebral arteries are patent without focal narro wing. No aneurysm or arteriovenous malformation is identified. CTA neck: The aortic arch vessel origins are wide ly patent. Mild left greater than right mixed tripp tid bifurcation plaque without significant stenosis. The common caroti d and cervical portions of the internal carotid and vertebral arteries are hudson nt without focal narrowing according to NASCET criteria. No aneurysm, AVM, or d issection is identified. Cervical spondylosis. The paranasal sin us and mastoid air cells are clear. A few small lung nodules measuring up to 6 mm (for example series 3, image 131). CT Perfusion: Small matched perfusion defect in the a nterior left MCA territory compatible with area of core infarct. Surrounding mismatch perfusion defect approximately equal in volume to the area of core inf arct, compatible with 50% ischemic penumbra. Procedure Note Interface, Radiant Results - 05/12/2019 1:31 AM ASSISTANT MANAGER EXAM: CTA HEAD AND NECK, CTA BRAIN PERFUSION HISTORY: Abnormal neurologic exam TECHNIQUE: Multiple contiguous axial images were obtained of the brain and neck following the administration of IV contrast. CTA maximum density projection images were obtained of the brain and neck with image post processing. Perfusion imaging was also obtained with CBV, MTT, TTD, and CBF mapping. COMPARISON:Outside CTA head/neck earlier same day FINDINGS: CTA head: The ventricles and subarachnoid spaces are normal in size and configuration. Hypodensity and loss of wagoner-white matter differentiation within the inferior left frontal lobe and anterior insular cortex, as well as the left basal ganglia. The wagoner white matter interfaces are otherwise maintained. There is no midline shift or herniation. There is no evidence of acute intracranial hemorrhage. The basal cisterns are patent. The calvarium is intact. Occlusion of the anterior left M2 division. Minimal calcific ICA plaque. The distal internal carotid, vertebral, and basilar arteries are patent without focal narrowing or occlusion. The anterior, right middle, and posterior cerebral arteries are patent without focal narrowing. No aneurysm or arteriovenous malformation is identified. CTA neck: The aortic arch vessel origins are widely patent. Mild left greater than right mixed carotid bifurcation plaque without significant stenosis. The common carotid and cervical portions of the internal carotid and vertebral arteries are patent without focal narrowing according to NASCET criteria. No aneurysm, AVM, or dissection is identified. Cervical spondylosis. The paranasal sinus and mastoid air cells are clear. A few small lung nodules measuring up to 6 mm (for example series 3, image 131). CT Perfusion: Small matched perfusion defect in the anterior left MCA territory compatible with area of core infarct. Surrounding mismatch perfusion defect approximately equal in volume to the area of core infarct, compatible with 50% ischemic penumbra. IMPRESSION CTA head: 1. Abrupt occlusion of the anterior lef t M2 division. 2. Low-attenuation and loss of wagoner-whi te matter differentiation within the left MCA territory (including inferior left frontal lobe, insular cortex, and left basal ganglia) compatible with areas of evolving acute infarct. 3. No acute intracranial hemorrhage. CTA neck: 1. Mild mixed atherosclerotic plaque wi thout significant carotid or vertebral stenosis according to NASCET criteria. 2. Few small nodules in the visualized lung apices. In a high-risk patient, follow-up CT of the chest in 12 months could be obtained for further evaluation. In a low-risk patient, no further follow-up is required. CT perfusion: 1. Small matched perfusion defect in th e anterior left MCA territory compatible with completed infarct. 2. Surrounding mismatch perfusion defec t approximately equal in volume to area of core infarct, compatible with 50%ischemic penumbra. Dr. Montez discussed findings via telephone with Tony Muniz MD on 05/12/2019 12:21 AM By my electronic signature, I attest that I have personally reviewed the images for this examination and formulated the interpretations and opinions expressed in this report Performing Organization Address City/State/Zipcode Ph one Number [facility] RAD RESULTS * CTA NECK WO/W CONTRAST+POST P (05/12/2019 12:07 AM ASSISTANT MANAGER) Specimen Addenda Addendum by Ray Mathews MD on 05/12/2019 1:31 AM Finalized by Champ Mathews MD, PhD on 05/12/2019 12:35 AM. Dictated by eCcilio Montez M.D. on 05/12/2019 12:08 AM.Addendum: Addition to clinical history: Confusion, decreased response, right-sided neglect Approved by Cecilio Montez M.D. on 05/12/2019 1:13 AM By my electronic signature, I attest that I have personally reviewed the images for this examination and formulated the interpretations and opinions expressed in this report Finalized by Champ Mathews MD, PhD on 05/12/2019 1:28 AM. Dictated by Cecilio Montez M.D. on 05/12/2019 1:12 AM. Impressions Performed At CTA head: [facility] 1. Abrupt occlusion of the anterior l eft M2 division. 2. Low-attenuation and loss of wagoner-w ginger matter differentiation within the left MCA territory (including inferior left frontal lobe, insular cortex, and left basal ganglia) compatible with are as of evolving acute infarct. 3. No acute intracranial hemorrhage. CTA neck: 1. Mild mixed atherosclerotic plaque without significant carotid or vertebral stenosis according to NASCET criteria. 2. Few small nodules in the visualize d lung apices. In a high-risk patient, follow-up CT of the chest in 12 months could be obtained for further evaluation. In a low-risk patient, no further follo w-up is required. CT perfusion: 1. Small matched perfusion defect in the anterior left MCA territory compatible with completed infarct. 2. Surrounding mismatch perfusion def ect approximately equal in volume to area of core infarct, compatible with 50%isc hemic penumbra. Dr. Montez discussed findings via tele phone with Tony Muniz MD on 05/12/2019 12:21 AM By my electronic signature, I attest th at I have personally reviewed the images for this examination and formulated the interpretations and opinions expressed in this report Narrative Performed At EXAM: CTA HEAD AND NECK, CTA BRAIN PERFUSION [facility] HISTORY: Abnormal neurologic exam TECHNIQUE: Multiple contiguous axial im ages were obtained of the brain and neck following the administration of IV c ontrast. CTA maximum density projection images were obtained of the brain and n jessy with image post processing. Perfusion imaging was also obtained w ith CBV, MTT, TTD, and CBF mapping. COMPARISON:Outside CTA head/neck earlie r same day FINDINGS: CTA head: The ventricles and subarachnoid spaces are normal in size and configuration. Hypodensity and loss of wagoner-white mike er differentiation within the inferior left frontal lobe and anterior insular cortex, as well as the left basal ganglia. The wagoner white matter interfac es are otherwise maintained. There is no midline shift or herniation. There is n o evidence of acute intracranial hemorrhage. The basal cisterns are hudson nt. The calvarium is intact. Occlusion of the anterior left M2 divis ion. Minimal calcific ICA plaque. The distal internal carotid, vertebral, and basilar arteries are patent without focal narrowing or occlusion. The anter ior, right middle, and posterior cerebral arteries are patent without focal narro wing. No aneurysm or arteriovenous malformation is identified. CTA neck: The aortic arch vessel origins are wide ly patent. Mild left greater than right mixed tripp tid bifurcation plaque without significant stenosis. The common caroti d and cervical portions of the internal carotid and vertebral arteries are hudson nt without focal narrowing according to NASCET criteria. No aneurysm, AVM, or d issection is identified. Cervical spondylosis. The paranasal sin us and mastoid air cells are clear. A few small lung nodules measuring up to 6 mm (for example series 3, image 131). CT Perfusion: Small matched perfusion defect in the a nterior left MCA territory compatible with area of core infarct. Surrounding mismatch perfusion defect approximately equal in volume to the area of core inf arct, compatible with 50% ischemic penumbra. Procedure Note Interface, Radiant Results - 05/12/2019 1:31 AM ASSISTANT MANAGER EXAM: CTA HEAD AND NECK, CTA BRAIN PERFUSION HISTORY: Abnormal neurologic exam TECHNIQUE: Multiple contiguous axial images were obtained of the brain and neck following the administration of IV contrast. CTA maximum density projection images were obtained of the brain and neck with image post processing. Perfusion imaging was also obtained with CBV, MTT, TTD, and CBF mapping. COMPARISON:Outside CTA head/neck earlier same day FINDINGS: CTA head: The ventricles and subarachnoid spaces are normal in size and configuration. Hypodensity and loss of wagoner-white matter differentiation within the inferior left frontal lobe and anterior insular cortex, as well as the left basal ganglia. The wagoner white matter interfaces are otherwise maintained. There is no midline shift or herniation. There is no evidence of acute intracranial hemorrhage. The basal cisterns are patent. The calvarium is intact. Occlusion of the anterior left M2 division. Minimal calcific ICA plaque. The distal internal carotid, vertebral, and basilar arteries are patent without focal narrowing or occlusion. The anterior, right middle, and posterior cerebral arteries are patent without focal narrowing. No aneurysm or arteriovenous malformation is identified. CTA neck: The aortic arch vessel origins are widely patent. Mild left greater than right mixed carotid bifurcation plaque without significant stenosis. The common carotid and cervical portions of the internal carotid and vertebral arteries are patent without focal narrowing according to NASCET criteria. No aneurysm, AVM, or dissection is identified. Cervical spondylosis. The paranasal sinus and mastoid air cells are clear. A few small lung nodules measuring up to 6 mm (for example series 3, image 131). CT Perfusion: Small matched perfusion defect in the anterior left MCA territory compatible with area of core infarct. Surrounding mismatch perfusion defect approximately equal in volume to the area of core infarct, compatible with 50% ischemic penumbra. IMPRESSION CTA head: 1. Abrupt occlusion of the anterior lef t M2 division. 2. Low-attenuation and loss of wagoner-whi te matter differentiation within the left MCA territory (including inferior left frontal lobe, insular cortex, and left basal ganglia) compatible with areas of evolving acute infarct. 3. No acute intracranial hemorrhage. CTA neck: 1. Mild mixed atherosclerotic plaque wi thout significant carotid or vertebral stenosis according to NASCET criteria. 2. Few small nodules in the visualized lung apices. In a high-risk patient, follow-up CT of the chest in 12 months could be obtained for further evaluation. In a low-risk patient, no further follow-up is required. CT perfusion: 1. Small matched perfusion defect in th e anterior left MCA territory compatible with completed infarct. 2. Surrounding mismatch perfusion defec t approximately equal in volume to area of core infarct, compatible with 50%ischemic penumbra. Dr. Montez discussed findings via telephone with Tony Muniz MD on 05/12/2019 12:21 AM By my electronic signature, I attest that I have personally reviewed the images for this examination and formulated the interpretations and opinions expressed in this report Performing Organization Address City/State/Zipcode Ph one Number [facility] * CTA HEAD WO/W CONTR+POST PRO (05/12/2019 12:07 AM ASSISTANT MANAGER) Specimen Addenda Addendum by Ray Mathews MD on 05/12/2019 1:31 AM Finalized by Champ Mathews MD, PhD on 05/12/2019 12:35 AM. Dictated by Cecilio Montez M.D. on 05/12/2019 12:08 AM.Addendum: Addition to clinical history: Confusion, decreased response, right-sided neglect Approved by Cecilio Montez M.D. on 05/12/2019 1:13 AM By my electronic signature, I attest that I have personally reviewed the images for this examination and formulated the interpretations and opinions expressed in this report Finalized by Champ Mathews MD, PhD on 05/12/2019 1:28 AM. Dictated by Cecilio Montez M.D. on 05/12/2019 1:12 AM. Impressions Performed At CTA head: [facility] 1. Abrupt occlusion of the anterior l eft M2 division. 2. Low-attenuation and loss of wagoner-w ginger matter differentiation within the left MCA territory (including inferior left frontal lobe, insular cortex, and left basal ganglia) compatible with are as of evolving acute infarct. 3. No acute intracranial hemorrhage. CTA neck: 1. Mild mixed atherosclerotic plaque without significant carotid or vertebral stenosis according to NASCET criteria. 2. Few small nodules in the visualize d lung apices. In a high-risk patient, follow-up CT of the chest in 12 months could be obtained for further evaluation. In a low-risk patient, no further follo w-up is required. CT perfusion: 1. Small matched perfusion defect in the anterior left MCA territory compatible with completed infarct. 2. Surrounding mismatch perfusion def ect approximately equal in volume to area of core infarct, compatible with 50%isc hemic penumbra. Dr. Montez discussed findings via tele phone with Tony Muniz MD on 05/12/2019 12:21 AM By my electronic signature, I attest th at I have personally reviewed the images for this examination and formulated the interpretations and opinions expressed in this report Narrative Performed At EXAM: CTA HEAD AND NECK, CTA BRAIN PERFUSION [facility] HISTORY: Abnormal neurologic exam TECHNIQUE: Multiple contiguous axial im ages were obtained of the brain and neck following the administration of IV c ontrast. CTA maximum density projection images were obtained of the brain and n jessy with image post processing. Perfusion imaging was also obtained w ith CBV, MTT, TTD, and CBF mapping. COMPARISON:Outside CTA head/neck earlie r same day FINDINGS: CTA head: The ventricles and subarachnoid spaces are normal in size and configuration. Hypodensity and loss of wagoner-white mike er differentiation within the inferior left frontal lobe and anterior insular cortex, as well as the left basal ganglia. The wagoner white matter interfac es are otherwise maintained. There is no midline shift or herniation. There is n o evidence of acute intracranial hemorrhage. The basal cisterns are hudson nt. The calvarium is intact. Occlusion of the anterior left M2 divis ion. Minimal calcific ICA plaque. The distal internal carotid, vertebral, and basilar arteries are patent without focal narrowing or occlusion. The anter ior, right middle, and posterior cerebral arteries are patent without focal narro wing. No aneurysm or arteriovenous malformation is identified. CTA neck: The aortic arch vessel origins are wide ly patent. Mild left greater than right mixed tripp tid bifurcation plaque without significant stenosis. The common caroti d and cervical portions of the internal carotid and vertebral arteries are hudson nt without focal narrowing according to NASCET criteria. No aneurysm, AVM, or d issection is identified. Cervical spondylosis. The paranasal sin us and mastoid air cells are clear. A few small lung nodules measuring up to 6 mm (for example series 3, image 131). CT Perfusion: Small matched perfusion defect in the a nterior left MCA territory compatible with area of core infarct. Surrounding mismatch perfusion defect approximately equal in volume to the area of core inf arct, compatible with 50% ischemic penumbra. Procedure Note Interface, Radiant Results - 05/12/2019 1:31 AM ASSISTANT MANAGER EXAM: CTA HEAD AND NECK, CTA BRAIN PERFUSION HISTORY: Abnormal neurologic exam TECHNIQUE: Multiple contiguous axial images were obtained of the brain and neck following the administration of IV contrast. CTA maximum density projection images were obtained of the brain and neck with image post processing. Perfusion imaging was also obtained with CBV, MTT, TTD, and CBF mapping. COMPARISON:Outside CTA head/neck earlier same day FINDINGS: CTA head: The ventricles and subarachnoid spaces are normal in size and configuration. Hypodensity and loss of wagoner-white matter differentiation within the inferior left frontal lobe and anterior insular cortex, as well as the left basal ganglia. The wagoner white matter interfaces are otherwise maintained. There is no midline shift or herniation. There is no evidence of acute intracranial hemorrhage. The basal cisterns are patent. The calvarium is intact. Occlusion of the anterior left M2 division. Minimal calcific ICA plaque. The distal internal carotid, vertebral, and basilar arteries are patent without focal narrowing or occlusion. The anterior, right middle, and posterior cerebral arteries are patent without focal narrowing. No aneurysm or arteriovenous malformation is identified. CTA neck: The aortic arch vessel origins are widely patent. Mild left greater than right mixed carotid bifurcation plaque without significant stenosis. The common carotid and cervical portions of the internal carotid and vertebral arteries are patent without focal narrowing according to NASCET criteria. No aneurysm, AVM, or dissection is identified. Cervical spondylosis. The paranasal sinus and mastoid air cells are clear. A few small lung nodules measuring up to 6 mm (for example series 3, image 131). CT Perfusion: Small matched perfusion defect in the anterior left MCA territory compatible with area of core infarct. Surrounding mismatch perfusion defect approximately equal in volume to the area of core infarct, compatible with 50% ischemic penumbra. IMPRESSION CTA head: 1. Abrupt occlusion of the anterior lef t M2 division. 2. Low-attenuation and loss of wagoner-whi te matter differentiation within the left MCA territory (including inferior left frontal lobe, insular cortex, and left basal ganglia) compatible with areas of evolving acute infarct. 3. No acute intracranial hemorrhage. CTA neck: 1. Mild mixed atherosclerotic plaque wi thout significant carotid or vertebral stenosis according to NASCET criteria. 2. Few small nodules in the visualized lung apices. In a high-risk patient, follow-up CT of the chest in 12 months could be obtained for further evaluation. In a low-risk patient, no further follow-up is required. CT perfusion: 1. Small matched perfusion defect in th e anterior left MCA territory compatible with completed infarct. 2. Surrounding mismatch perfusion defec t approximately equal in volume to area of core infarct, compatible with 50%ischemic penumbra. Dr. Montez discussed findings via telephone with Tony Muniz MD on 05/12/2019 12:21 AM By my electronic signature, I attest that I have personally reviewed the images for this examination and formulated the interpretations and opinions expressed in this report Performing Organization Address City/State/Zipcode Ph one Number [facility] RESULTS * ECG-SCAN (05/11/2019 12:00 AM ASSISTANT MANAGER) Narrative Performed At This result has an attachment that is n ot available. Ordered by an unspecified provider. documented in this encounter Visit Diagnoses Diagnosis Acute ischemic stroke (HCC) Unspecified cerebral artery occlusion w ith cerebral infarction Diabetes (HCC) Type II or unspecified type diabetes me llitus without mention of complication, not stated as uncontrolled Hyperlipidemia Other and unspecified hyperlipidemia Dysphagia Dysphagia, unspecified Obesity Obesity, unspecified Hypertension Unspecified essential hypertension documented in this encounter Admitting Diagnoses Diagnosis Acute ischemic stroke (HCC) Unspecified cerebral artery occlusion w ith cerebral infarction documented in this encounter Administered Medications Action Date Dose Rate Site Medication Order MAR Action acetaminophen (TYLENOL) rectal suppository 650 mg 650 mg, Rectal, EVERY 4 HOURS PRN, Starting Fri05/12/19 at 0709, Until Fri05/18/19 at 1621, Pain non-opioid: may be used alone or in combination with opioi d analgesia, TOTAL ACETAMINOPHEN DOSE NOT TO EXCEED 4GM DAILY, 05/18/2019 12:14 PM ASSISTANT MANAGER 650 mg acetaminophen (TYLENOL) tablet 650 mg Given 650 mg, Oral, EVERY 4 HOURS PRN, Starting Fri05/11/19 at 2345, Until Fri05/18/19 at 1621, Temp > ..., 38.3 C, TOTAL ACETAMINOPHEN DOSE NOT TO EXCEED 4GM DAILY, 650 mg Given 05/17/2019 12:54 PM ASSISTANT MANAGER 650 mg Given 05/17/2019 2:47 AM ASSISTANT MANAGER 05/18/2019 8:47 AM ASSISTANT MANAGER 81 mg aspirin chewable tablet 81 mg Given 81 mg, Oral, DAILY, First dose on Fri05/14/19 at 0900, Until Discontinued 81 mg Given 05/17/2019 8:09 AM ASSISTANT MANAGER 81 mg Given 05/16/2019 10:51 AM ASSISTANT MANAGER 05/13/2019 8:33 AM ASSISTANT MANAGER 300 mg aspirin rectal suppository 300 mg Given 300 mg, Rectal, DAILY, First dose on 05/13/19 at 0900, Until Discontinued 05/12/2019 1:14 AM ASSISTANT MANAGER 300 mg aspirin rectal suppository 300 mg Given 300 mg, Rectal, ONCE, 1 dose, Fri05/12/19 at 0115 05/15/2019 12:23 PM ASSISTANT MANAGER 12.5 mg atenoloL (TENORMIN) tablet 12.5 mg Given 12.5 mg, Oral, DAILY, First dose on 05/15/19 at 1215, Until Discontinued, Hold for heart rate < 65 bpm, systolic BP < 115 or diastolic BP < 65, 05/18/2019 8:45 AM ASSISTANT MANAGER 40 mg atorvastatin (LIPITOR) tablet 40 mg Given 40 mg, Oral, DAILY, First dose on Fri05/12/19 at 0900, Until Discontinued 40 mg Given 05/17/2019 8:08 AM ASSISTANT MANAGER 40 mg Given 05/16/2019 10:51 AM ASSISTANT MANAGER 05/13/2019 8:33 AM ASSISTANT MANAGER 10 mg bisacodyL (DULCOLAX) rectal suppository Given 10 mg 10 mg, Rectal, DAILY, First dose on Fri05/13/19 at 0900, Until Discontinued, Ma y hold if BM within 24 hours of dose., carvediloL (COREG) tablet 12.5 mg 12.5 mg, Oral, TWICE DAILY, First dose (after last modification) on Fri05/18/19 at 2100, Until Discontinued, Hold for heart rate < 55 bpm or systolic BP < 100, 05/18/2019 8:46 AM ASSISTANT MANAGER 6.25 mg carvediloL (COREG) tablet 6.25 mg Given 6.25 mg, Oral, TWICE DAILY, First dose on Fri05/17/19 at 2100, Until Discontinued, Hold for heart rate < 55 bpm or systolic BP < 100, 6.25 mg Given 05/17/2019 8:53 PM ASSISTANT MANAGER 05/18/2019 9:55 AM ASSISTANT MANAGER 6.25 mg carvediloL (COREG) tablet 6.25 mg Given 6.25 mg, Oral, ONCE, 1 dose, Fri05/18/19 at 0945 05/18/2019 8:46 AM ASSISTANT MANAGER 100 mg docusate (COLACE) capsule 100 mg Given 100 mg, Oral, TWICE DAILY, First dose o n Fri05/12/19 at 0000, Until Discontinued , Hold for loose stools, 100 mg Given 05/12/2019 9:50 PM ASSISTANT MANAGER 100 mg Given 05/12/2019 12:21 PM ASSISTANT MANAGER 05/18/2019 5:11 AM ASSISTANT MANAGER 5,000 Units Abdomina l Tissue heparin (porcine) PF syringe 5,000 Units Given 5,000 Units, Subcutaneous, EVERY 8 HOURS, First dose on Fri05/12/19 at 0600, Until Discontinued, NOTE: This is a HIGH ALERT Medication., 5,000 Units Abdominal Tissue Given 05/17/2019 9:00 PM ASSISTANT MANAGER 5,000 Units Abdominal Tissue Given 05/17/2019 1:02 PM ASSISTANT MANAGER 05/13/2019 8:41 PM ASSISTANT MANAGER 10 mg hydrALAZINE (APRESOLINE) injection 10 mg Given 10 mg, Intravenous, EVERY 6 HOURS PRN, Starting [place] 05/13/19 at 1155, Until 05/15/19 at 0816, Systolic Blood Pressure..., SBP >180, After dose, chec k BP every 5 minutes x3, then every 15 minutes x2 until desired BP reached. Notify provider if blood pressure is no t within desired range after above monitoring time. , hydrALAZINE (APRESOLINE) tablet 10 mg 10 mg, Oral, THREE TIMES DAILY PRN, Starting 05/15/19 at 0816, Until Fri05/18/19 at 1621, Systolic Blood Pressure..., >180 05/18/2019 8:46 AM ASSISTANT MANAGER 25 mg hydroCHLOROthiazide (HYDRODIURIL) tablet Given 25 mg 25 mg, Oral, DAILY, First dose on Fri05/14/19 at 0945, Until Discontinued 25 mg Given 05/17/2019 8:08 AM ASSISTANT MANAGER 25 mg Given 05/16/2019 10:52 AM ASSISTANT MANAGER 05/17/2019 12:01 PM ASSISTANT MANAGER 6 Units Abdomina l Tissue insulin aspart U-100 (NOVOLOG FLEXPEN) Given injection PEN 0-12 Units 0-12 Units, Subcutaneous, BEFORE MEALS AND 2200, First dose on Fri05/12/19 at 0700, Until Discontinued, -POC glucose 181-220mg/dL at , , administer 2 units insulin, at 22, 03* administer 0 units. -POC glucose 221-260mg/dL at , , administer 4 units insulin, at 22, 03* administer 2 units. -POC glucos e 261-300mg/dL at , , administer 6 units insulin, at 22, 03* administer 4 units. -POC glucose 301-350mg/dL at , , administer 8 units insulin, at , * administer 6 units. -POC glucos e 351-400mg/dL at administer 1 0 units insulin, at , 03* administer 8 units. -POC glucose >400mg/dL at , , administer 12 units insulin, at , * administer 10 units. *only if ordered 5x's daily For POCT glucose >350mg/dL give correction bolus and recheck POCT glucose in 2 hours. If POC T glucose at 2 hours >300mg/dL call physician for further orders. For patients who are not eating meals, continue to administer the appropriate correction factor. NOTE: This is a HIGH ALERT Medication., Dispense pens manually with initial order and then upon request. DO NOT uncheck "Do not dispense", 4 Units Abdominal Tissue Given 05/17/2019 8:18 AM ASSISTANT MANAGER 2 Units Abdominal Tissue Given 05/16/2019 5:31 PM ASSISTANT MANAGER 05/18/2019 12:03 PM ASSISTANT MANAGER 12 Units Abdomina l Tissue insulin aspart U-100 (NOVOLOG FLEXPEN) Given injection PEN 0-24 Units 0-24 Units, Subcutaneous, BEFORE MEALS AND 2200, First dose on Fri05/17/19 at 1215, Until Discontinued, -POC glucose 181-220mg/dL at administer 4 units insulin, at , 03* administer 0 units. -POC glucose 221-260mg/dL at , administer 8 units insulin, at , 03* administer 4 units. -POC glucos e 261-300mg/dL at administer 1 2 units insulin, at , 03* administer 8 units. -POC glucose 301-350mg/dL at , , administer 16 units insulin, at , * administer 12 units. -POC glucose 351-400mg/dL at administer 20 units insulin, at , 03* administer 16 units. -POC glucose >400mg/dL at , , administer 24 units insulin, at , 03* administer 20 units. *only if ordered 5x's daily Fo r POCT glucose >350mg/dL give correction bolus and recheck POCT glucose in 2 hours. If POCT glucose at 2 hours >300mg/dL call physician for further orders. For patients who are not eatin g meals, continue to administer the appropriate correction factor. NOTE: This is a HIGH ALERT Medication., Dispense pens manually with initial order and then upon request. DO NOT uncheck "Do not dispense", 8 Units Abdominal Tissue Given 05/18/2019 8:47 AM ASSISTANT MANAGER 4 Units Arm, Left Given 05/17/2019 5:36 PM ASSISTANT MANAGER 05/12/2019 12:15 AM ASSISTANT MANAGER 100 mL 2.2 mL/hr iohexoL (OMNIPAQUE-350) 350 mg/mL Given injection 100 mL 100 mL, Intravenous, at 2.2 mL/hr, ONCE , 1 dose, [facility] 05/12/19 at 0015, NOTE: This is a HIGH ALERT Medication., 05/16/2019 8:14 AM ASSISTANT MANAGER 500 mg levETIRAcetam (KEPPRA) 500 mg/NS 100 mL Given - New IVPB (premade) Bag 500 mg, 100 mL, Administer over 15 Minutes, Intravenous, TWICE DAILY, Firs t dose on [place] 05/16/19 at 0800, Until Discontinued 05/16/2019 8:53 AM ASSISTANT MANAGER 500 mg levETIRAcetam (KEPPRA) 500 mg/NS 100 mL Given - New IVPB (premade) Bag 500 mg, 100 mL, Administer over 15 Minutes, Intravenous, ONCE, 1 dose, [place] 05/16/19 at 0915 05/17/2019 8:19 AM ASSISTANT MANAGER 750 mg 400 mL/hr levETIRAcetam (KEPPRA) 750 mg in sodium Given - New chloride 0.9% (NS) 100 mL IVPB Bag 750 mg, 100 mL, Administer over 15 Minutes, Intravenous, TWICE DAILY, Firs t dose (after last modification) on [place] 05/16/19 at 2100, Until Discontinued 750 mg 400 mL/hr Given - New Bag 05/16/2019 8:15 PM ASSISTANT MANAGER 05/18/2019 8:47 AM ASSISTANT MANAGER 750 mg levETIRAcetam (KEPPRA) tablet 750 mg Given 750 mg, Oral, TWICE DAILY, First dose o n 05/17/19 at 2100, Until Discontinued 750 mg Given 05/17/2019 8:53 PM ASSISTANT MANAGER 05/14/2019 9:02 AM ASSISTANT MANAGER 20 mg lisinopriL (ZESTRIL) tablet 20 mg Given 20 mg, Oral, DAILY, First dose on Fri05/13/19 at 1300, Until Discontinued 20 mg Given 05/13/2019 1:46 PM ASSISTANT MANAGER 05/12/2019 12:08 PM ASSISTANT MANAGER 1 g 100 mL/hr magnesium sulfate 1 g/D5W 100 mL IVPB Given - New 1 g, Intravenous, 100 mL, Administer Bag over 1 Hours, NEEDED, Starting Fri05/11/19 at 2346, Until Fri05/12/19 at 1449, Other..., magnesium replacement (see Admin Instructions), If urine output < 30 mL/hr or SCr >2 mg/dL, [facility] k with physician prior to giving magnesiu m replacement. - For Serum Magnesium > 2.1 mg/dL, No replacement necessary. - For Serum Magnesium 1.8 - 2.0 mg/dL, give Magnesium Sulfate 2 grams IV over 2 hours. - For Serum Magnesium 1.6 - 1.7 mg/dL, give Magnesium Sulfate 3 grams I V over 3 hours. - For Serum Magnesium 1. 3 - 1.5 mg/dL, give Magnesium Sulfate 4 grams IV over 4 hours. - For Serum Magnesium < = 1.2 mg/dL, give Magnesium Sulfate 6 grams IV over 6 hours AND notify physician. Recheck serum magnesium level 2 hours after completio n of appropriate replacement dose. Repeat this standing order x 1. Notify physician if serum magnesium < 2.1 mg/d L after two replacements. Infuse each 1gm Magnesium sulfate over 1 hour. Each 1 gm delivers 8.1 mEq Magnesium., 1 g 100 mL/hr Given - New Bag 05/12/2019 11:08 AM ASSISTANT MANAGER 1 g 100 mL/hr Given - New Bag 05/12/2019 10:06 AM ASSISTANT MANAGER 05/18/2019 8:46 AM ASSISTANT MANAGER 1,000 mg metFORMIN (GLUCOPHAGE) tablet 1,000 mg Given 1,000 mg, Oral, TWICE DAILY WITH MEALS, First dose on Fri05/13/19 at 1700, Unti l Discontinued 1,000 mg Given 05/17/2019 5:21 PM ASSISTANT MANAGER 1,000 mg Given 05/17/2019 8:08 AM ASSISTANT MANAGER 05/12/2019 12:21 PM ASSISTANT MANAGER 10 mL milk of magnesia (CONC) oral suspension Given 10 mL 10 mL, Oral, DAILY, First dose on Fri05/12/19 at 0900, Until Discontinued, Ma y hold if BM within 24 hours of dose. 10 mL CONC = 30 mL MOM, 05/16/2019 6:18 AM ASSISTANT MANAGER 50 mg modafiniL (PROVIGIL) tablet 50 mg Given 50 mg, Oral, TWICE DAILY, First dose on Fri05/15/19 at 1330, Until Discontinued 50 mg Given 05/15/2019 3:25 PM ASSISTANT MANAGER 05/12/2019 10:31 AM ASSISTANT MANAGER 1 Diluted mL perflutren lipid microspheres (DEFINITY) Given injection 1-20 Diluted mL 1-20 Diluted mL, Intravenous, ONCE PRN, 1 dose, Starting Fri05/12/19 at 1006, Until Fri05/12/19 at 1031, For Procedure, A coating and baking operator may only administer Definity through a saline lock. If IV is in use or a port, PICC, or central line is being used a nurse must administer. NOTE: This is a HIGH ALERT Medication., MAC Procedure Area Only - Medications 05/17/2019 12:54 PM ASSISTANT MANAGER 40 mEq potassium chloride SR (K-DUR) tablet 40 Given mEq 40 mEq, Oral, ONCE, 1 dose, 05/17/19 at 1300, - Tablet may be dispersed in water. Place tab in 30 mL of water for 40-60 seconds. - Gently swirl until fully dispersed. If particles remain after admin, add small amount of water and admin remaining content. - DO NOT CRUSH. Tablet may be split in half. , 05/18/2019 8:46 AM ASSISTANT MANAGER 1 tablet senna/docusate (SENOKOT-S) tablet 1 Given tablet 1 tablet, Oral, TWICE DAILY, First dose on Fri05/12/19 at 0000, Until Discontinued, Hold for loose stools. If patient unable to take tablet, give 10 mL of senna/docusate (SENOKOT-S) solution. Send inEaspring Material Technologyet message to pharmacy., If patient unable to take tablet, give 10 mL of senna/docusate (SENOKOT-S) solution., 1 tablet Given 05/12/2019 9:50 PM ASSISTANT MANAGER 1 tablet Given 05/12/2019 12:21 PM ASSISTANT MANAGER 05/18/2019 8:46 AM ASSISTANT MANAGER 50 mg sertraline (ZOLOFT) tablet 50 mg Given 50 mg, Oral, DAILY, First dose on Fri05/12/19 at 1500, Until Discontinued 50 mg Given 05/17/2019 8:08 AM ASSISTANT MANAGER 50 mg Given 05/16/2019 10:52 AM ASSISTANT MANAGER 05/12/2019 2:05 AM ASSISTANT MANAGER 1,000 mL 100 mL/hr sodium chloride 0.9 % infusion Given - New 1,000 mL, 1,000 mL, Intravenous, at 100 Bag mL/hr, ONCE, 1 dose, Fri05/12/19 at 020 0 05/17/2019 1:02 PM ASSISTANT MANAGER 500 mL 250 mL/hr sodium chloride 0.9 % infusion Given - New 500 mL, 500 mL, Intravenous, at 250 Bag mL/hr, ONCE, 1 dose, 05/17/19 at 1300 05/18/2019 9:55 AM ASSISTANT MANAGER 500 mL 250 mL/hr sodium chloride 0.9 % infusion Given - New 500 mL, 500 mL, Intravenous, at 250 Bag mL/hr, ONCE, 1 dose, 05/18/19 at 1030 05/16/2019 8:14 AM ASSISTANT MANAGER 250 mL SODIUM CHLORIDE 0.9 % IV SOLP (Cabinet Given - New Override) Bag NOW, 1 dose, [place] 05/16/19 at 0815, Create d by cabinet override, Created by cabinet override, 05/12/2019 12:15 AM ASSISTANT MANAGER 50 mL 2.2 mL/hr sodium chloride PF 0.9% injection 50 mL Given 50 mL, Intravenous, at 2.2 mL/hr, ONCE, 1 dose, Fri05/12/19 at 0015, DO NOT SEN D this medication unless it is requested. This med is usually available in floor stock., Intra-procedure (IR) 05/18/2019 8:46 AM ASSISTANT MANAGER 320 mg valsartan (DIOVAN) tablet 320 mg Given 320 mg, Oral, DAILY, First dose on 05/15/19 at 0900, Until Discontinued 320 mg Given 05/17/2019 8:08 AM ASSISTANT MANAGER 320 mg Given 05/16/2019 10:52 AM ASSISTANT MANAGER documented in this encounter
--- OUTSIDE RECORDS SUMMARY | 2019-10-28 12:47 | XMS REPORT | Encounter Summary ---
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 [facility] documented as of this encounter Procedures Comments Procedure Name Priority Date/Time Associated Diag nosis CTA HEAD EXTERNAL IMAGING Routine 05/11/2019 Diag nosis unknown 12:10 AM PHOTOGRAPHER MOTION PICTURE documented in this encounter Results * CTA HEAD EXTERNAL IMAGING (05/11/2019 12:10 AM PHOTOGRAPHER MOTION PICTURE) Specimen Narrative Performed At This order has been auto finalized and does not contain a result. documented in this encounter Visit Diagnoses Diagnosis Diagnosis unknown Other unknown and unspecified cause of morbidity or mortality documented in this encounter
--- OUTSIDE RECORDS SUMMARY | 2019-10-28 12:49 | XMS REPORT | Continuity of Care Document ---
Author Organization Unknown Address Unknown Phone Unavailable Allergies Active Description Code Type Severity Reaction Onset Reported/Identified Relationship to Patient Clinical Status Yes No Known Drug Allergies [id number] Drug Allergy Unknown N/A 10/29/2018 Medications There is no data. Problems Date Dx Coded Attending Type Code Diagnosis Diagnosed By 11/14/2014 GELLENDER DO, RAYO Mix Ot V76.12 10/10/2015 GELLENDER DO, RAYO Mix [...] FOR MALIGNANT NE 12/07/2015 GELLENDER DO, RAYO Mxi Ot R92.2 INCONCLUSIVE MAMMOGRAM 12/07/2015 GELLENDER DO, RAYO Mix Ot R92.8 OTH ABN AND INCONCLUSIVE FINDINGS ON DX 12/14/2015 Ot V76.12 OTH SCREEN MAMMO- MALIGN NEOPLASM OF [place] 12/14/2015 Ot 786.2 COUGH [...] Ot N63 UNSPECIFIED LUMP IN BREAST 01/05/2016 AVALOS DODIXIE Ot N63 UNSPECIFIED LUMP IN BREAST 01/05/2016 DIXIE AVALOS DO Ot Z01.818 ENCOUNTER FOR OTHER PREPROCEDURAL EXAMIN 01/05/2016 DIXIE AVALOS DO Ot Z11. 2 ENCOUNTER FOR SCREENING FOR OTHER BACTER 01/08/2016 DIXIE AVALOS DO Ot N63 UNSPECIFIED LUMP IN BREAST 01/08/2016 DIXIE AVALOS DO Ot Z01.818 ENCOUNTER FOR OTHER PREPROCEDURAL EXAMIN 01/08/2016 DIXIE AVALOS DO Ot Z11. 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 3 FAMILY HISTORY OF MALIGNANT NEOPLASM OF 01/15/2016 DIXIE AVALOS DO Ot C50.911 MALIGNANT NEOPLASM OF UNSP SITE OF RIGHT 01/15/2016 DIXIE AVALOS DO Ot Z80. 3 FAMILY HISTORY OF MALIGNANT NEOPLASM OF 01/17/2016 AVALOS DO, DIXIE D Ot C50.911 MALIGNANT NEOPLASM OF UNSP SITE OF RIGHT 01/17/2016 AVALOS DO, DIXIE D Ot Z80. 3 FAMILY HISTORY OF MALIGNANT NEOPLASM OF 02/01/2016 AVALOS DO, DIXIE D Ot C50.911 MALIGNANT NEOPLASM OF UNSP SITE OF RIGHT 02/01/2016 AVALOS DO, DIXIE D Ot Z80. 3 FAMILY HISTORY OF MALIGNANT NEOPLASM OF 02/21/2016 LEDYLENDER DO, RAYO Mix Ot R92.8 OTH ABN AND INCONCLUSIVE FINDINGS ON DX 06/12/2016 Ot V76.12 OTH SCREEN MAMMO- MALIGN NEOPLASM OF [place] 06/12/2016 Ot 786.2 COUGH 06/12/2016 GELLENDER DO, RAYO Mix Ot V76.12 [...] UNSPECIFIED LUMP IN BREAST 12/06/2016 GELLENDER DO, RAYO Mix Ot M47.816 SPONDYLOSIS W/O MYELOPATHY OR RADICULOPA 12/06/2016 RAYO SANDHU DO Ot M51.36 OTHER INTERVERTEBRAL DISC DEGENERATION, 12/11/2016 RAYO SANDHU DO Ot M47.816 SPONDYLOSIS W/O MYELOPATHY OR RADICULOPA 12/11/2016 RAYO SANDHU DO Ot M51.36 OTHER INTERVERTEBRAL DISC DEGENERATION, 02/17/2017 RAYO SANDHU DO Ot Z12.31 ENCNTR SCREEN MAMMOGRAM FOR MALIGNANT NE 03/04/2017 RAYO SANDHU DO Ot Z12.31 ENCNTR SCREEN MAMMOGRAM FOR MALIGNANT NE 04/11/2017 RAMSES CORCORAN DO Ot M43.8X9 OTHER SPECIFIED DEFORMING DORSOPATHIES, 04/11/2017 YOUUSFNDON DORAMSES Ot M48.061 SPINAL STENOSIS, LUMBAR REGION WITHOUT N 04/11/2017 YOUSUFNDON DORAMSES Ot M51.37 OTHER INTERVERTEBRAL DISC DEGENERATION, 04/11/2017 HARINION RAMSES TORRES Ot M54.16 RADICULOPATHY, LUMBAR REGION 05/02/2017 JEWELL DORAMSES Ot M43.8X9 OTHER SPECIFIED DEFORMING DORSOPATHIES, 05/02/2017 YOUSUFNDON DORAMSES Ot M48.061 SPINAL STENOSIS, LUMBAR REGION WITHOUT N 05/02/2017 YOUSUFNDON DORAMSES Ot M51.37 OTHER INTERVERTEBRAL DISC DEGENERATION, 05/02/2017 YOUSUFNDON DORAMSES Ot M54.16 RADICULOPATHY, LUMBAR REGION 05/07/2017 HARINION DORAMSES Ot M43.8X9 OTHER SPECIFIED DEFORMING DORSOPATHIES, 05/07/2017 YOUSUFNDHETAL DORAMSES Ot M48.061 SPINAL STENOSIS, LUMBAR REGION WITHOUT N 05/07/2017 HEARNDON DORAMSES Ot M51.37 OTHER INTERVERTEBRAL DISC DEGENERATION, 05/07/2017 YOUSUFNDON DORAMSES Ot M54.16 RADICULOPATHY, LUMBAR REGION 06/03/2017 DIXIE AVALOS DO Ot R22. 2 LOCALIZED SWELLING, MASS AND LUMP, TRUNK 06/03/2017 DIXIE AVALOS DO Ot Z01.818 ENCOUNTER FOR OTHER PREPROCEDURAL EXAMIN 06/03/2017 DIXIE AVALOS DO Ot Z11. 2 ENCOUNTER FOR SCREENING FOR OTHER BACTER 06/04/2017 DIXIE AVALOS DO Ot R22. 2 LOCALIZED SWELLING, MASS AND LUMP, TRUNK 06/04/2017 DIXIE AVALOS DO Ot Z01.818 ENCOUNTER FOR OTHER PREPROCEDURAL EXAMIN 06/04/2017 DIXIE AVALOS DO Ot Z11. 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 9 TYPE 2 DIABETES MELLITUS WITHOUT COMPLIC 06/05/2017 DIXIE AVALOS DO Ot E78. 00 PURE HYPERCHOLESTEROLEMIA, UNSPECIFIED 06/05/2017 DIXIE AVALOS DO Ot F32. 9 MAJOR DEPRESSIVE DISORDER, SINGLE EPISOD 06/05/2017 IDXIE AVALOS DO Ot I10 ESSENTIAL (PRIMARY) HYPERTENSION 06/05/2017 DIIXE AVALOS DO Ot M19. 91 PRIMARY OSTEOARTHRITIS, UNSPECIFIED SITE 06/05/2017 DIXIE AVALOS DO Ot Z79. 82 [employer] (CURRENT) USE OF ASPIRIN 06/05/2017 DIXIE AVALOS DO Ot Z79. 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 9 TYPE 2 DIABETES MELLITUS WITHOUT COMPLIC 06/10/2017 DIXIE AVALOS DO Ot E78. 00 PURE HYPERCHOLESTEROLEMIA, UNSPECIFIED 06/10/2017 DIXIE AVALOS DO Ot F32. 9 MAJOR DEPRESSIVE DISORDER, SINGLE EPISOD 06/10/2017 DIXIE AVALOS DO Ot I10 ESSENTIAL (PRIMARY) HYPERTENSION 06/10/2017 DIXIE AVALOS DO Ot M19. 91 PRIMARY OSTEOARTHRITIS, UNSPECIFIED SITE 06/10/2017 DIXIE AVALOS DO Ot Z79. 82 [facility] (CURRENT) USE OF ASPIRIN 06/10/2017 DIXIE AVALOS DO Ot Z79. 84 [employer] (CURRENT) USE OF ORAL HYPOGLYC 06/10/2017 DIXIE AVALOS DO Ot 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 07/03/2017 JEWELL , RAMSES Gonsales Ot M54.16 RADICULOPATHY, LUMBAR REGION 07/04/2017 HARINIHETAL , RAMSES Gonsales Ot M54.16 RADICULOPATHY, LUMBAR REGION 07/04/2017 HARINIHETAL DO, RAMSES Gonsales Ot M54.16 RADICULOPATHY, LUMBAR REGION 08/28/2017 HARINIHETAL DO, RAMSES Gonsales Ot M54.16 RADICULOPATHY, LUMBAR REGION 08/29/2017 HARINIHETAL , RAMSES Gonsales Ot M54.16 RADICULOPATHY, LUMBAR REGION 01/30/2018 EDSON DO, RAYO Mix Ot Z12.31 ENCNTR SCREEN MAMMOGRAM FOR [facility]IGNANT NE 02/12[facility] Mix Ot V76.12 OTH SCREEN MAMMO-MALIGN NEOPLASM OF [place] 02/12/2018 [facility], RAYO Mxi Ot V76.12 OTH SCREEN MAMMO-MALIGN NEOPLASM OF [place] 02/12/2018 [facility], RAYO Mix Ot M54.9 DORSALGIA, UNSPECIFIED 02/12/2018 [facility], RAYO Mix Ot Z12.31 ENCNTR SCREEN MAMMOGRAM FOR MALIGNANT NE 02/12/2018 [facility], RAYO Mix Ot R92.8 OTH ABN AND INCONCLUSIVE FINDINGS ON DX 02/12/2018 [facility] , RAYO Mix Ot N63 UNSPECIFIED LUMP IN BREAST 02/12/2018 [facility], RAYO Mix Ot R92.8 OTH ABN AND INCONCLUSIVE FINDINGS ON DX 02/12/2018 [facility], RAYO Mix Ot M47.816 SPONDYLOSIS W/O MYELOPATHY OR RADICULOPA 02/12/2018 [facility] Ot M51.36 OTHER INTERVERTEBRAL DISC DEGENERATION, 02/12/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 DISC DEGENERATION, 02/12/2018 RAMSES CORCORAN DO Ot M54.16 RADICULOPATHY, LUMBAR REGION 02/12/2018 GELLENDER DO, RAYO Dominguez Ot Z12.31 ENCNTR SCREEN MAMMOGRAM FOR MALIGNANT NE 02/13/2018 GELLENDER DO, RAYO Mix Ot R92.8 OTH ABN AND INCONCLUSIVE FINDINGS ON DX 02/13/2018 GELLENDER DO, RAYO Mix Ot Z12.31 ENCNTR SCREEN MAMMOGRAM FOR MALIGNANT NE 03/09/2018 GELLENDER DO, RAYO Mix Ot R92.8 OTH ABN AND INCONCLUSIVE FINDINGS ON DX 03/09/2018 GELLENDER DO, RAYO Mix Ot Z12.31 ENCNTR SCREEN MAMMOGRAM FOR MALIGNANT NE 03/19/2018 LEDYLENDER DO, RAYO Mix Ot N64.89 OTHER SPECIFIED DISORDERS OF BREAST 03/25/2018 [facility] DO, RAYO Mix Ot N64.89 OTHER SPECIFIED DISORDERS OF BREAST 04/15/2018 AVALOSDIXIE RODRIGUEZ DO Ot Z01.818 ENCOUNTER FOR OTHER PREPROCEDURAL EXAMIN 04/15/2018 DIXIE AVALOS DO Ot Z01.818 ENCOUNTER FOR OTHER PREPROCEDURAL EXAMIN 04/15/2018 DIXIE AVALOS DO Ot Z01.818 ENCOUNTER FOR OTHER PREPROCEDURAL EXAMIN 04/15/2018 DIXIE AVALOS DO Ot Z01.818 ENCOUNTER FOR OTHER PREPROCEDURAL EXAMIN 04/16/2018 DIXIE AVALOS DO Ot Z01.818 ENCOUNTER FOR OTHER PREPROCEDURAL EXAMIN 04/21/2018 DIXIE AVALOS DO Ot 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 9 TYPE 2 DIABETES MELLITUS WITHOUT COMPLIC 04/21/2018 DIXIE AVALOS DO Ot E66. 9 OBESITY, UNSPECIFIED 04/21/2018 DIXIE AVALOS DO Ot I10 ESSENTIAL (PRIMARY) HYPERTENSION 04/21/2018 DIXIE AVALOS DO Ot Z68. 39 BODY MASS INDEX (BMI) 39.0-39.9, ADULT 04/21/2018 DIXIE AVALOS DO Ot Z79. 82 [facility] (CURRENT) USE OF ASPIRIN 04/21/2018 DIXIE AVALOS DO Ot Z79. 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 9 TYPE 2 DIABETES MELLITUS WITHOUT COMPLIC 04/24/2018 DIXIE AVALOS DO D Ot E66. 9 OBESITY, UNSPECIFIED 04/24/2018 PATRICIA AVALOS DOTT D Ot I10 ESSENTIAL (PRIMARY) HYPERTENSION 04/24/2018 DIXIE AVALOS DO D Ot Z68. 39 BODY MASS INDEX (BMI) 39.0-39.9, ADULT 04/24/2018 PATRICIA AVALOS DOTT D Ot Z79. 82 [facility] (CURRENT) USE OF ASPIRIN 04/24/2018 DIXIE AVALOS DO D Ot Z79. 84 [facility] (CURRENT) USE OF ORAL HYPOGLYC 04/24/2018 DIXIE AVALOS DO Ot Z79.899 OTHER [facility] (CURRENT) DRUG THERAPY 05/07/2018 DIXIE AVALOS DO D Ot C18. 9 MALIGNANT NEOPLASM OF COLON, UNSPECIFIED 05/07/2018 DIXIE AVALOS DO D Ot C18. 9 MALIGNANT NEOPLASM OF COLON, UNSPECIFIED 05/13/2018 DIXIE AVALOS DO D Ot C18. 9 MALIGNANT NEOPLASM OF COLON, UNSPECIFIED 05/13/2018 DIXIE AVALOS DO Ot I25. 10 ATHSCL HEART DISEASE OF [place] CORONARY 05/13/2018 DIXIE AVALOS DO Ot I51. 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 9 TYPE 2 DIABETES MELLITUS WITHOUT COMPLIC 05/26/2018 DIXIE AVALOS DO Ot E66. 9 OBESITY, UNSPECIFIED 05/26/2018 DIXIE AVALOS DO D Ot E78. 5 HYPERLIPIDEMIA, UNSPECIFIED 05/26/2018 DIXIE AVALOS DO D Ot E83. 42 HYPOMAGNESEMIA 05/26/2018 DIXIE AVALOS DO D Ot E83. 52 HYPERCALCEMIA 05/26/2018 PATRICIA AVALOS DOTT D Ot F32. 9 MAJOR DEPRESSIVE DISORDER, SINGLE EPISOD 05/26/2018 PATRICIA AVALOS DOTT D Ot I10 ESSENTIAL (PRIMARY) HYPERTENSION 05/26/2018 DIXIE AVALOS DO D Ot M19. 91 PRIMARY OSTEOARTHRITIS, UNSPECIFIED SITE 05/26/2018 [facility] M54. 9 DORSALGIA, UNSPECIFIED 05/26/2018 AVALOS DODIXIE D Ot R00. 1 BRADYCARDIA, UNSPECIFIED 05/26/2018 AVALOS DO, DIXIE D Ot Z68. 41 BODY MASS INDEX (BMI) 40.0-44.9, ADULT 05/26/2018 [facility] Ot Z79. 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 9 TYPE 2 DIABETES MELLITUS WITHOUT COMPLIC 05/28/2018 [facility] Ot E66. 9 OBESITY, UNSPECIFIED 05/28/2018 [facility] Ot I10 ESSENTIAL (PRIMARY) HYPERTENSION 05/28/2018 [facility] Ot Z68. 39 BODY MASS INDEX (BMI) 39.0-39.9, ADULT 05/28/2018 [facility] Ot Z79. 82 [facility] (CURRENT) USE OF ASPIRIN 05/28/2018 [facility] Ot Z79. 84 [employer] (CURRENT) USE OF ORAL HYPOGLYC 05/28/2018 [facility] Ot 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 05/29/2018 AVALOS DODIXIE D Ot C18. 9 MALIGNANT NEOPLASM OF COLON, UNSPECIFIED 06/08/2018 [facility] DIXIE D Ot C18. 9 MALIGNANT NEOPLASM OF COLON, UNSPECIFIED 06/08/2018 [facility] Ot I25. 10 ATHSCL HEART DISEASE OF [place] CORONARY 06/08/2018 AVALOS DODIXIE D Ot I51. 7 CARDIOMEGALY 07/08/2018 NEERU SORIANO Ot C18.2 MALIGNANT NEOPLASM OF ASCENDING COLON 07/08/2018 NEERU SORIANO Ot E11.9 TYPE 2 DIABETES MELLITUS WITHOUT COMPLIC 07/08/2018 NEERU SORIANO Ot E78.00 PURE HYPERCHOLESTEROLEMIA, UNSPECIFIED 07/08/2018 NEERU SORIANO Ot I10 ESSENTIAL (PRIMARY) HYPERTENSION 07/08/2018 NEERU SORIANO Ot M17.0 BILATERAL PRIMARY OSTEOARTHRITIS OF KNEE 07/08/2018 NEERU SORIANO N Ot M47.9 SPONDYLOSIS, UNSPECIFIED 07/08/2018 NEERU SORIANO N Ot Z79.84 [facility] (CURRENT) USE OF ORAL HYPOGLYC 07/08/2018 NEERU SORIANO N Ot Z79.899 OTHER [facility] (CURRENT) DRUG THERAPY 07/08/2018 BONEERU CHAVEZ N Ot Z80.0 FAMILY HISTORY OF MALIGNANT NEOPLASM OF 07/15/2018 NEERU SORIANO Marcela Ot C18.2 MALIGNANT NEOPLASM OF ASCENDING COLON 07/15/2018 BO, TIFFANIEMELL N Ot E11.9 TYPE 2 DIABETES MELLITUS WITHOUT COMPLIC 07/15/2018 BONEERU CHAVEZ N Ot E78.00 PURE HYPERCHOLESTEROLEMIA, UNSPECIFIED 07/15/2018 BO BOBAN N Ot I10 ESSENTIAL (PRIMARY) HYPERTENSION 07/15/2018 BO, TIFFANIEMELL N Ot M17.0 BILATERAL PRIMARY OSTEOARTHRITIS OF KNEE 07/15/2018 NEERU SORIANO N Ot M47.9 SPONDYLOSIS, UNSPECIFIED 07/15/2018 BONEERU CHAVEZ N Ot 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 07/15/2018 NEERU SORIANO N Ot 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 07/15/2018 NEERU SORIANO N Ot Z80.0 FAMILY HISTORY OF MALIGNANT NEOPLASM OF 07/28/2018 DIXIE AVALOS DO Ot C19 MALIGNANT NEOPLASM OF RECTOSIGMOID JUNCT 07/28/2018 DIXIE AVALOS DO Ot I25. 10 ATHSCL HEART DISEASE OF [place] CORONARY 07/28/2018 DIXIE AVALOS DO Ot I51. 7 CARDIOMEGALY 08/13/2018 BO NEERU Medrano Ot C18.2 MALIGNANT NEOPLASM OF ASCENDING COLON 08/13/2018 NEERU SORIANO N Ot E11.9 TYPE 2 DIABETES MELLITUS WITHOUT COMPLIC 08/13/2018 BO, TIFFANIEMELL N Ot E78.00 PURE HYPERCHOLESTEROLEMIA, UNSPECIFIED 08/13/2018 BO, NEERU N Ot I10 ESSENTIAL (PRIMARY) HYPERTENSION 08/13/2018 BO TIFFANIEMELL N Ot M17.0 BILATERAL PRIMARY OSTEOARTHRITIS OF KNEE 08/13/2018 BO NEERU N Ot M47.9 SPONDYLOSIS, UNSPECIFIED 08/13/2018 BO TIFFANIEMELL N Ot Z79.84 [facility] (CURRENT) USE OF ORAL HYPOGLYC 08/13/2018 NEERU SORIANO N Ot Z79.899 OTHER [facility] (CURRENT) DRUG THERAPY 08/13/2018 NEERU SORIANO N Ot Z80.0 FAMILY HISTORY OF MALIGNANT NEOPLASM OF 08/14/2018 NEERU SORIANO N Ot C18.2 MALIGNANT NEOPLASM OF ASCENDING COLON 08/14/2018 NEERU SORIANO N Ot E11.9 TYPE 2 DIABETES MELLITUS WITHOUT COMPLIC 08/14/2018 NEERU SORIANO N Ot E78.00 PURE HYPERCHOLESTEROLEMIA, UNSPECIFIED 08/14/2018 NEERU SORIANO N Ot I10 ESSENTIAL (PRIMARY) HYPERTENSION 08/14/2018 NEERU SORIANO N Ot M17.0 BILATERAL PRIMARY OSTEOARTHRITIS OF KNEE 08/14/2018 NEERU SORIANO N Ot M47.9 SPONDYLOSIS, UNSPECIFIED 08/14/2018 NEERU SORIANO N Ot 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 08/14/2018 NEERU SORIANO N Ot 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 08/14/2018 NEERU SORIANO Ot Z80.0 FAMILY HISTORY OF MALIGNANT NEOPLASM OF 09/16/2018 EDSON DO, RAYO A Ot R92.8 OTH ABN AND INCONCLUSIVE FINDINGS ON DX 09/24/2018 GELLENDER DO, RAYO A Ot R92.8 OTH ABN AND INCONCLUSIVE FINDINGS ON DX 09/30/2018 EDSON DO, RAYO A Ot N63.21 UNSPECIFIED LUMP IN THE LEFT BREAST, UPP 10/08/2018 NEERU SORIANO N Ot C18.2 MALIGNANT NEOPLASM OF ASCENDING COLON 10/08/2018 NEERU SORIANO N Ot E11.9 TYPE 2 DIABETES MELLITUS WITHOUT COMPLIC 10/08/2018 NEERU SORIANO N Ot E78.00 PURE HYPERCHOLESTEROLEMIA, UNSPECIFIED 10/08/2018 NEERU SORIANO N Ot I10 ESSENTIAL (PRIMARY) HYPERTENSION 10/08/2018 NEERU SORIANO N Ot M17.0 BILATERAL PRIMARY OSTEOARTHRITIS OF KNEE 10/08/2018 NEERU SORIANO N Ot M47.9 SPONDYLOSIS, UNSPECIFIED 10/08/2018 NEERU SORIANO N Ot Z79.84 [facility] (CURRENT) USE OF ORAL HYPOGLYC 10/08/2018 NEERU SORIANO N Ot 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 10/08/2018 NEERU SORIANO Ot Z80.0 FAMILY HISTORY OF MALIGNANT NEOPLASM OF 10/08/2018 GELKRISHNADER DO, RAYO Mix Ot R92.8 OTH ABN AND INCONCLUSIVE FINDINGS ON DX 10/12/2018 GELLENDER DO, RAYO Dominguez Ot N63.20 UNSPECIFIED LUMP IN THE LEFT BREAST, UNS 10/12/2018 BARRYDER DO, RAYO Dominguez Ot R92.8 OTH ABN AND INCONCLUSIVE FINDINGS ON DX 10/14/2018 LEDYLENDER DO, RAYO Mix Ot N63.21 UNSPECIFIED LUMP IN THE LEFT BREAST, UPP 10/29/2018 GELLENDER DO, RAYO Dominguez Ot N63.21 UNSPECIFIED LUMP IN THE LEFT BREAST, UPP 10/29/2018 GELLENDER DO, RAYO Mix Ot Z98.890 OTHER SPECIFIED POSTPROCEDURAL STATES 10/29/2018 DIXIE AVALOS DO Ot Z01.818 ENCOUNTER FOR OTHER PREPROCEDURAL EXAMIN 10/31/2018 EDSON DO, RAYO Mix Ot N63.21 UNSPECIFIED LUMP IN THE LEFT BREAST, UPP 10/31/2018 GELLENDER DO, RAYO Mix Ot Z98.890 OTHER SPECIFIED POSTPROCEDURAL STATES 11/05/2018 DIXIE AVALOS DO Ot C50.412 MALIG NEOPLASM OF UPPER-OUTER QUADRANT O 11/05/2018 DIXIE AVALOS DO Ot E11. 9 TYPE 2 DIABETES MELLITUS WITHOUT COMPLIC 11/05/2018 DIXIE AVALOS DO Ot E66. 01 MORBID (SEVERE) OBESITY DUE TO EXCESS CA 11/05/2018 DIXIE AVALOS DO Ot E78. 00 PURE HYPERCHOLESTEROLEMIA, UNSPECIFIED 11/05/2018 DIXIE AVALOS DO Ot E78. 5 HYPERLIPIDEMIA, UNSPECIFIED 11/05/2018 DIXIE AVALOS DO Ot F32. 9 MAJOR DEPRESSIVE DISORDER, SINGLE EPISOD 11/05/2018 DIXIE AVALOS DO Ot I10 ESSENTIAL (PRIMARY) HYPERTENSION 11/05/2018 DIXIE AVALOS DO Ot Z68. 39 BODY MASS INDEX (BMI) 39.0-39.9, ADULT 11/05/2018 DIXIE AVALOS DO Ot Z79. 82 [facility] (CURRENT) USE OF ASPIRIN 11/05/2018 DIXIE AVALOS DO Ot Z79. 84 [employer] [facility] (CURRENT) USE OF ORAL HYPOGLYC 11/05/2018 AVALOS DODIXIE Ot 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 11/05/2018 AVALOS DODIXIE Ot Z80. 1 FAMILY HISTORY OF MALIG NEOPLASM OF [place] 11/05/2018 AVALOS DODIXIE Ot Z80. 3 FAMILY HISTORY OF MALIGNANT NEOPLASM OF 11/05/2018 AVALOS DIXIE Ot Z85.038 PERSONAL HISTORY OF MALIGNANT NEOPLASM O 11/12/2018 [facility] Ot C50.412 MALIG NEOPLASM OF UPPER-OUTER QUADRANT O 11/12/2018 AVALOS DIXIE Ot E11. 9 TYPE 2 DIABETES MELLITUS WITHOUT COMPLIC 11/12/2018 DIXIE AVALOS DO Ot E66. 01 MORBID (SEVERE) OBESITY DUE TO EXCESS CA 11/12/2018 DIXIE AVALOS DO Ot E78. 00 PURE HYPERCHOLESTEROLEMIA, UNSPECIFIED 11/12/2018 DIXIE AVALOS DO Ot E78. 5 HYPERLIPIDEMIA, UNSPECIFIED 11/12/2018 DIXIE AVALOS DO Ot F32. 9 MAJOR DEPRESSIVE DISORDER, SINGLE EPISOD 11/12/2018 DIXIE AVALOS DO Ot I10 ESSENTIAL (PRIMARY) HYPERTENSION 11/12/2018 DIXIE AVALOS DO Ot Z68. 39 BODY MASS INDEX (BMI) 39.0-39.9, ADULT 11/12/2018 DIXIE AVALOS DO Ot Z79. 82 [facility] (CURRENT) USE OF ASPIRIN 11/12/2018 DIXIE AVALOS DO Ot Z79. 84 [facility] (CURRENT) USE OF ORAL HYPOGLYC 11/12/2018 AVALOS DODIXIE Ot Z79.899 OTHER [facility] (CURRENT) DRUG THERAPY 11/12/2018 AVALOS DODIXIE Ot Z80. 1 FAMILY HISTORY OF MALIG NEOPLASM OF [place] 11/12/2018 DIXIE AVALOS DO Ot Z80. 3 FAMILY HISTORY OF MALIGNANT NEOPLASM OF 11/12/2018 AVALOS DIXIE Ot Z85.038 PERSONAL HISTORY OF MALIGNANT NEOPLASM O 11/27/2018 NEERU SORIANO Ot C18.2 MALIGNANT NEOPLASM OF ASCENDING COLON 11/27/2018 NEERU SORIANO Ot E11.9 TYPE 2 DIABETES MELLITUS WITHOUT COMPLIC 11/27/2018 BO, BOBAN N Ot E78.00 PURE HYPERCHOLESTEROLEMIA, UNSPECIFIED 11/27/2018 NEERU SORIANO N Ot I10 ESSENTIAL (PRIMARY) HYPERTENSION 11/27/2018 NEERU SORIANO N Ot M17.0 BILATERAL PRIMARY OSTEOARTHRITIS OF KNEE 11/27/2018 NEERU SORIANO N Ot M47.9 SPONDYLOSIS, UNSPECIFIED 11/27/2018 NEERU SORIANO N Ot Z79.84 [facility] (CURRENT) USE OF ORAL HYPOGLYC 11/27/2018 BO TIFFANIEMELL N Ot 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 11/27/2018 NEERU SORIANO N Ot Z80.0 FAMILY HISTORY OF MALIGNANT NEOPLASM OF 11/30/2018 GELSMILEY DO, RAYO A Ot N63.21 UNSPECIFIED LUMP IN THE LEFT BREAST, UPP 11/30/2018 GELLENDER DO, RAYO A Ot Z98.890 OTHER SPECIFIED POSTPROCEDURAL STATES 12/09/2018 BO TIFFANIEMELL N Ot C18.2 MALIGNANT NEOPLASM OF ASCENDING COLON 12/09/2018 BONEERU N Ot E11.9 TYPE 2 DIABETES MELLITUS WITHOUT COMPLIC 12/09/2018 NEERU SORIANO N Ot E78.00 PURE HYPERCHOLESTEROLEMIA, UNSPECIFIED 12/09/2018 BO TIFFANIEMELL N Ot I10 ESSENTIAL (PRIMARY) HYPERTENSION 12/09/2018 NEERU SORIANO N Ot M17.0 BILATERAL PRIMARY OSTEOARTHRITIS OF KNEE 12/09/2018 NEERU SORIANO N Ot M47.9 SPONDYLOSIS, UNSPECIFIED 12/09/2018 NEERU SORIANO N Ot Z79.84 [facility] (CURRENT) USE OF ORAL HYPOGLYC 12/09/2018 NEERU SORIANO N Ot 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 12/09/2018 NEERU SORIANO N Ot Z80.0 FAMILY HISTORY OF MALIGNANT NEOPLASM OF 12/09/2018 BO TIFFANIEMELL N Ot C18.2 MALIGNANT NEOPLASM OF ASCENDING COLON 12/09/2018 BO NEERU N Ot E11.9 TYPE 2 DIABETES MELLITUS WITHOUT COMPLIC 12/09/2018 BO NEERU N Ot E78.00 PURE HYPERCHOLESTEROLEMIA, UNSPECIFIED 12/09/2018 OB TIFFANIEMELL N Ot I10 ESSENTIAL (PRIMARY) HYPERTENSION 12/09/2018 BO NEERU N Ot M17.0 BILATERAL PRIMARY OSTEOARTHRITIS OF KNEE 12/09/2018 NEERU SORIANO N Ot M47.9 SPONDYLOSIS, UNSPECIFIED 12/09/2018 NEERU SORIANO N Ot Z79.84 [facility] (CURRENT) USE OF ORAL HYPOGLYC 12/09/2018 BO BOBAN N Ot Z79.899 OTHER [facility] (CURRENT) DRUG THERAPY 12/09/2018 NEERU SORIANO N Ot Z80.0 FAMILY HISTORY OF MALIGNANT NEOPLASM OF 12/10/2018 NEERU SORIANO N Ot C18.2 MALIGNANT NEOPLASM OF ASCENDING COLON 12/10/2018 BO BOBAN N Ot E11.9 TYPE 2 DIABETES MELLITUS WITHOUT COMPLIC 12/10/2018 BO BOBAN N Ot E78.00 PURE HYPERCHOLESTEROLEMIA, UNSPECIFIED 12/10/2018 BO BOBAN N Ot I10 ESSENTIAL (PRIMARY) HYPERTENSION 12/10/2018 BO BOBAN N Ot M17.0 BILATERAL PRIMARY OSTEOARTHRITIS OF KNEE 12/10/2018 NEERU SORIANO N Ot M47.9 SPONDYLOSIS, UNSPECIFIED 12/10/2018 NEERU SORIANO N Ot Z51.0 ENCOUNTER FOR ANTINEOPLASTIC RADIATION T 12/10/2018 TIFFANIE SORIANOAN N Ot Z79.84 [facility] (CURRENT) USE OF ORAL HYPOGLYC 12/10/2018 TIFFANIE SORIANOAN N Ot Z79.899 OTHER [facility] (CURRENT) DRUG THERAPY 12/10/2018 NEERU SORIANO N Ot Z80.0 FAMILY HISTORY OF MALIGNANT NEOPLASM OF 12/24/2018 NEERU SORIANO N Ot C18.2 MALIGNANT NEOPLASM OF ASCENDING COLON 12/24/2018 NEERU SORIANO N Ot E11.9 TYPE 2 DIABETES MELLITUS WITHOUT COMPLIC 12/24/2018 NEERU SORIANO N Ot E78.00 PURE HYPERCHOLESTEROLEMIA, UNSPECIFIED 12/24/2018 BO BOBAN N Ot I10 ESSENTIAL (PRIMARY) HYPERTENSION 12/24/2018 NEERU SORIANO N Ot M17.0 BILATERAL PRIMARY OSTEOARTHRITIS OF KNEE 12/24/2018 BO BOBMELL N Ot M47.9 SPONDYLOSIS, UNSPECIFIED 12/24/2018 BO BOBAN N Ot Z79.84 [facility] (CURRENT) USE OF ORAL HYPOGLYC 12/24/2018 BO, BOBAN N Ot Z79.899 OTHER [facility] (CURRENT) DRUG THERAPY 12/24/2018 NEERU SORIANO Marcela Ot Z80.0 FAMILY HISTORY OF MALIGNANT NEOPLASM OF 01/11/2019 NEERU SORIANO N Ot C18.2 MALIGNANT NEOPLASM OF ASCENDING COLON 01/11/2019 NEERU SORIANO Marcela Ot E11.9 TYPE 2 DIABETES MELLITUS WITHOUT COMPLIC 01/11/2019 NEERU SORIANO N Ot E78.00 PURE HYPERCHOLESTEROLEMIA, UNSPECIFIED 01/11/2019 NEERU SORIANO N Ot I10 ESSENTIAL (PRIMARY) HYPERTENSION 01/11/2019 NEERU SORIANO Marcela Ot M17.0 BILATERAL PRIMARY OSTEOARTHRITIS OF KNEE 01/11/2019 NEERU SORIANO Marcela Ot M47.9 SPONDYLOSIS, UNSPECIFIED 01/11/2019 NEERU SORIANO Marcela Ot Z51.0 ENCOUNTER FOR ANTINEOPLASTIC RADIATION T 01/11/2019 NEERU SORIANO Marcela Ot Z79.84 [facility] (CURRENT) USE OF ORAL HYPOGLYC 01/11/2019 NEERU SORIANO Marcela Ot Z79.899 OTHER [facility] (CURRENT) DRUG THERAPY 01/11/2019 NEERU SORIANO Marcela Ot Z80.0 FAMILY HISTORY OF MALIGNANT NEOPLASM OF 01/25/2019 JANE RAY RAYON CONER Ot Z78.0 ASYMPTOMATIC MENOPAUSAL STATE 01/29/2019 JANE RAY RAYON CONER Ot Z78.0 ASYMPTOMATIC MENOPAUSAL STATE 02/04/2019 JANE RAY RAYON CONER Ot Z13.820 ENCOUNTER FOR SCREENING FOR OSTEOPOROSIS 02/04/2019 JANE RAY RAYON CONER Ot C18.2 MALIGNANT NEOPLASM OF ASCENDING COLON 02/04/2019 JANE RAY RAYON CONER Ot C50.412 MALIG NEOPLASM OF UPPER-OUTER QUADRANT O 02/04/2019 JANE RAY RAYON CONER Ot N18.3 CHRONIC KIDNEY DISEASE, STAGE 3 (MODERAT 02/04/2019 JANE RAY RAYON CONER Ot Z13.820 ENCOUNTER FOR SCREENING FOR OSTEOPOROSIS 02/04/2019 JANE RAY RAYON CONER Ot Z78.0 ASYMPTOMATIC MENOPAUSAL STATE 03/09/2019 NEERU SORIANO Marcela Ot C18.2 MALIGNANT NEOPLASM OF ASCENDING COLON 03/09/2019 NEERU SORIANO Marcela Ot E11.9 TYPE 2 DIABETES MELLITUS WITHOUT COMPLIC 03/09/2019 NEERU SORIANO Marcela Ot E78.00 PURE HYPERCHOLESTEROLEMIA, UNSPECIFIED 03/09/2019 BO TIFFANIEMELL N Ot I10 ESSENTIAL (PRIMARY) HYPERTENSION 03/09/2019 NEERU SORIANO N Ot M17.0 BILATERAL PRIMARY OSTEOARTHRITIS OF KNEE 03/09/2019 NEERU SORIANO N Ot M47.9 SPONDYLOSIS, UNSPECIFIED 03/09/2019 NEERU SORIANO N Ot Z51.0 ENCOUNTER FOR ANTINEOPLASTIC RADIATION T 03/09/2019 NEERU SORIANO N Ot 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 03/09/2019 NEERU SORIANO N Ot 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 03/09/2019 NEERU SORIANO N Ot Z80.0 FAMILY HISTORY OF MALIGNANT NEOPLASM OF 03/11/2019 NEERU SORIANO N Ot C18.2 MALIGNANT NEOPLASM OF ASCENDING COLON 03/11/2019 ENERU SORIANO Marcela Ot E11.9 TYPE 2 DIABETES MELLITUS WITHOUT COMPLIC 03/11/2019 NEERU SORIANO N Ot E78.00 PURE HYPERCHOLESTEROLEMIA, UNSPECIFIED 03/11/2019 NEERU SORIANO N Ot I10 ESSENTIAL (PRIMARY) HYPERTENSION 03/11/2019 NEERU SORIANO N Ot M17.0 BILATERAL PRIMARY OSTEOARTHRITIS OF KNEE 03/11/2019 NEERU SORIANO N Ot M47.9 SPONDYLOSIS, UNSPECIFIED 03/11/2019 NEERU SORIANO N Ot Z51.0 ENCOUNTER FOR ANTINEOPLASTIC RADIATION T 03/11/2019 NEERU SORIANO N Ot 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 03/11/2019 NEERU SORIANO N Ot Z79.899 OTHER [facility] (CURRENT) DRUG THERAPY 03/11/2019 NEERU SORIANO N Ot Z80.0 FAMILY HISTORY OF MALIGNANT NEOPLASM OF 03/15/2019 JANE RAY RAYON CONER Ot C18.2 MALIGNANT NEOPLASM OF ASCENDING COLON 03/15/2019 JANE RAY RAYON CONER Ot C50.412 MALIG NEOPLASM OF UPPER-OUTER QUADRANT O 03/15/2019 JANE RAY RAYON CONER Ot N18.3 CHRONIC KIDNEY DISEASE, STAGE 3 (MODERAT 03/15/2019 JANE RAY RAYON CONER Ot Z13.820 ENCOUNTER FOR SCREENING FOR OSTEOPOROSIS 03/15/2019 JANE RAY RAYON CONER Ot Z78.0 ASYMPTOMATIC MENOPAUSAL STATE 03/26/2019 NEERU SORIANO N Ot C18.2 MALIGNANT NEOPLASM OF ASCENDING COLON 03/26/2019 BO BOBAN N Ot E11.9 TYPE 2 DIABETES MELLITUS WITHOUT COMPLIC 03/26/2019 BONEERU N Ot E78.00 PURE HYPERCHOLESTEROLEMIA, UNSPECIFIED 03/26/2019 OBNEERU N Ot I10 ESSENTIAL (PRIMARY) HYPERTENSION 03/26/2019 BONEERU N Ot M17.0 BILATERAL PRIMARY OSTEOARTHRITIS OF KNEE 03/26/2019 BONEERU N Ot M47.9 SPONDYLOSIS, UNSPECIFIED 03/26/2019 BONEERU N Ot Z51.0 ENCOUNTER FOR ANTINEOPLASTIC RADIATION T 03/26/2019 BONEERU N Ot 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 03/26/2019 BONEERU N Ot 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 03/26/2019 NEERU SORIANO N Ot Z80.0 FAMILY HISTORY OF MALIGNANT NEOPLASM OF 04/07/2019 NEERU SORIANO Ot C18.2 MALIGNANT NEOPLASM OF ASCENDING COLON 04/07/2019 NEERU SORIANO Ot E11.9 TYPE 2 DIABETES MELLITUS WITHOUT COMPLIC 04/07/2019 NEERU SORIANO N Ot E78.00 PURE HYPERCHOLESTEROLEMIA, UNSPECIFIED 04/07/2019 BONEERU N Ot I10 ESSENTIAL (PRIMARY) HYPERTENSION 04/07/2019 NEERU SORIANO N Ot M17.0 BILATERAL PRIMARY OSTEOARTHRITIS OF KNEE 04/07/2019 NEERU SORIANO N Ot M47.9 SPONDYLOSIS, UNSPECIFIED 04/07/2019 BONEERU N Ot Z51.0 ENCOUNTER FOR ANTINEOPLASTIC RADIATION T 04/07/2019 NEERU SORIANO Ot Z79.84 [facility] (CURRENT) USE OF ORAL HYPOGLYC 04/07/2019 NEERU SORIANO N Ot Z79.899 OTHER [facility] (CURRENT) DRUG THERAPY 04/07/2019 NEERU SORIANO N Ot Z80.0 FAMILY HISTORY OF MALIGNANT NEOPLASM OF 05/04/2019 DIXIE AVALOS DO Ot Z01.818 ENCOUNTER FOR OTHER PREPROCEDURAL EXAMIN 05/11/2019 NEERU SORIANO N Ot C18.2 MALIGNANT NEOPLASM OF ASCENDING COLON 05/11/2019 NEERU SORIANO Ot C50.412 MALIG NEOPLASM OF UPPER-OUTER QUADRANT O 05/11/2019 NEERU SORIANO N Ot E11.9 TYPE 2 DIABETES MELLITUS WITHOUT COMPLIC 05/11/2019 NEERU SORIANO Marcela Ot E78.00 PURE HYPERCHOLESTEROLEMIA, UNSPECIFIED 05/11/2019 NEERU SORIANO Marcela Ot I10 ESSENTIAL (PRIMARY) HYPERTENSION 05/11/2019 NEERU SORIANO Marcela Ot M17.0 BILATERAL PRIMARY OSTEOARTHRITIS OF KNEE 05/11/2019 NEERU SORIANO Marcela Ot M47.9 SPONDYLOSIS, UNSPECIFIED 05/11/2019 NEERU SORIANO Marcela Ot 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 05/11/2019 NEERU SORIANO Marcela Ot Z79.899 OTHER [facility] (CURRENT) DRUG THERAPY 05/11/2019 NEERU SORIANO Marcela Ot Z80.0 FAMILY HISTORY OF MALIGNANT NEOPLASM OF 05/11/2019 NEERU SORIANO Marcela Ot Z90.49 ACQUIRED ABSENCE OF OTHER SPECIFIED PART 05/11/2019 NEERU SORIANO Marcela Ot Z92.3 PERSONAL HISTORY OF IRRADIATION 05/11/2019 ROBBIE DODIXIE Ot E11. 9 TYPE 2 DIABETES MELLITUS WITHOUT COMPLIC 05/11/2019 AVALOS DODIXIE Ot E66. 01 MORBID (SEVERE) OBESITY DUE TO EXCESS CA 05/11/2019 ROBBIE DODIXIE Ot E78. 00 PURE HYPERCHOLESTEROLEMIA, UNSPECIFIED 05/11/2019 AVALOS DO DIXIE D Ot E78. 5 HYPERLIPIDEMIA, UNSPECIFIED 05/11/2019 AVALOS DO, DIXIE D Ot F32. 9 MAJOR DEPRESSIVE DISORDER, SINGLE EPISOD 05/11/2019 AVALOS DODIXIE D Ot I10 ESSENTIAL (PRIMARY) HYPERTENSION 05/11/2019 AVALOS DO DIXIE D Ot Z68. 41 BODY MASS INDEX (BMI) 40.0-44.9, ADULT 05/11/2019 AVALOS DOPATRICIATT D Ot Z79. 84 [employer] (CURRENT) USE OF ORAL HYPOGLYC 05/11/2019 AVALOS DO DIXIE D Ot 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 05/11/2019 AVALOS DO, DIXIE D Ot Z80. 0 FAMILY HISTORY OF MALIGNANT NEOPLASM OF 05/11/2019 AVALOS DO, DIXIE D Ot Z80. 1 FAMILY HISTORY OF MALIG NEOPLASM OF TRAC 05/11/2019 AVALOS DODIXIE Ot Z80. 3 FAMILY HISTORY OF MALIGNANT NEOPLASM OF 05/11/2019 [facility] PERSONAL HISTORY OF MALIGNANT NEOPLASM O 05/11/2019 [facility]85. 3 PERSONAL HISTORY OF MALIGNANT NEOPLASM O 05/11/2019 [facility] Z90. 89 ACQUIRED ABSENCE OF OTHER ORGANS 05/11/2019 [facility] Z98. 0 INTESTINAL BYPASS AND ANASTOMOSIS STATUS 05/11/2019 [facility] Z98. 51 TUBAL LIGATION STATUS 05/11/2019 CARINA ARRIAGA, NADIR Stack Ot E11.9 TYPE 2 DIABETES MELLITUS WITHOUT COMPLIC 05/11/2019 NADIR LIM MD Ot E78.00 PURE HYPERCHOLESTEROLEMIA, UNSPECIFIED 05/11/2019 NADIR LIM MD, Ot F32.9 MAJOR DEPRESSIVE DISORDER, SINGLE EPISOD 05/11/2019 NADIR LIM MD Ot G81.90 HEMIPLEGIA, UNSPECIFIED AFFECTING UNSPEC 05/11/2019 NADIR LIM MD, Ot I10 ESSENTIAL (PRIMARY) HYPERTENSION 05/11/2019 NADIR LIM MD, Ot I63.9 CEREBRAL INFARCTION, UNSPECIFIED 05/11/2019 NADIR LIM MD Ot R29.727 NIHSS SCORE 27 05/11/2019 NADIR LIM MD, Ot R41.82 ALTERED MENTAL STATUS, UNSPECIFIED 05/11/2019 NADIR LIM MD, Ot R47.01 APHASIA 05/11/2019 NADIR LIM MD, Ot Z79.82 [facility] (CURRENT) USE OF ASPIRIN 05/11/2019 NADIR LIM MD Ot 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 05/11/2019 NADIR LIM MD Ot Z80.3 FAMILY HISTORY OF MALIGNANT NEOPLASM OF 05/11/2019 NADIR LIM MD, Ot Z80.8 FAMILY HISTORY OF MALIGNANT NEOPLASM OF 05/11/2019 NADIR LIM MD Ot Z82.49 FAMILY HX OF ISCHEM HEART DIS AND OTH DI 05/11/2019 NADIR LMI MD Ot Z85.038 PERSONAL HISTORY OF MALIGNANT NEOPLASM O 05/11/2019 CARINA ARRIAGA, NADIR Stack Ot Z86.018 PERSONAL HISTORY OF OTHER BENIGN NEOPLAS 05/11/2019 CARINA ARRIAGA, NADIR Stack Ot Z98.51 TUBAL LIGATION STATUS 05/13/2019 [facility]. 9 TYPE 2 DIABETES MELLITUS WITHOUT COMPLIC 05/13/2019 [facility] E66. 01 MORBID (SEVERE) OBESITY DUE TO EXCESS CA 05/13/2019 [facility] E78. 00 PURE HYPERCHOLESTEROLEMIA, UNSPECIFIED 05/13/2019 [facility], DIXIE Snyder Ot E78. 5 HYPERLIPIDEMIA, UNSPECIFIED 05/13/2019 [facility] Ot F32. 9 MAJOR DEPRESSIVE DISORDER, SINGLE EPISOD 05/13/2019 [facility], DIXIE Snyder Ot I10 ESSENTIAL (PRIMARY) HYPERTENSION 05/13/2019 [facility], DIXIE Snyder Ot Z68. 41 BODY MASS INDEX (BMI) 40.0-44.9, ADULT 05/13/2019 [facility] Z79. 84 [employer] (CURRENT) USE OF ORAL HYPOGLYC 05/13/2019 [facility] Ot Z79.899 OTHER [facility] (CURRENT) DRUG THERAPY 05/13/2019 [facility] Z80. 0 FAMILY HISTORY OF MALIGNANT NEOPLASM OF 05/13/2019 [facility] Z80. 1 FAMILY HISTORY OF MALIG NEOPLASM OF TRAC 05/13/2019 [facility] Z80. 3 FAMILY HISTORY OF MALIGNANT NEOPLASM OF 05/13/2019 [facility] Z85.038 PERSONAL HISTORY OF MALIGNANT NEOPLASM O 05/13/2019 [facility] Z85. 3 PERSONAL HISTORY OF MALIGNANT NEOPLASM O 05/13/2019 [facility] Z90. 89 ACQUIRED ABSENCE OF OTHER ORGANS 05/13/2019 [facility] Z98. 0 INTESTINAL BYPASS AND ANASTOMOSIS STATUS 05/13/2019 [facility] Z98. 51 TUBAL LIGATION STATUS 05/18/2019 NADIR LIM MD Ot E11.9 TYPE 2 DIABETES MELLITUS WITHOUT COMPLIC 05/18/2019 NADIR LIM MD Ot E78.00 PURE HYPERCHOLESTEROLEMIA, UNSPECIFIED 05/18/2019 NADIR LIM MD Ot F32.9 MAJOR DEPRESSIVE DISORDER, SINGLE EPISOD 05/18/2019 NADIR LIM MD, Ot G81.90 HEMIPLEGIA, UNSPECIFIED AFFECTING UNSPEC 05/18/2019 NADIR LIM MD Ot I10 ESSENTIAL (PRIMARY) HYPERTENSION 05/18/2019 NADIR LIM MD Ot I63.9 CEREBRAL INFARCTION, UNSPECIFIED 05/18/2019 NADIR LIM MD Ot R29.727 NIHSS SCORE 27 05/18/2019 NADIR LIM MD, Ot R41.82 ALTERED MENTAL STATUS, UNSPECIFIED 05/18/2019 NADIR LIM MD, Ot R47.01 APHASIA 05/18/2019 NADIR LIM MD, Ot Z79.82 [facility] (CURRENT) USE OF ASPIRIN 05/18/2019 NADIR LIM MD Ot 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 05/18/2019 NADIR LIM MD, Ot Z80.3 FAMILY HISTORY OF MALIGNANT NEOPLASM OF 05/18/2019 NADIR LIM MD, Ot Z80.8 FAMILY HISTORY OF MALIGNANT NEOPLASM OF 05/18/2019 NADIR LIM MD, Ot Z82.49 FAMILY HX OF ISCHEM HEART DIS AND OTH DI 05/18/2019 NADIR LIM MD Ot Z85.038 PERSONAL HISTORY OF MALIGNANT NEOPLASM O 05/18/2019 NADIR LIM MD Ot Z86.018 PERSONAL HISTORY OF OTHER BENIGN NEOPLAS 05/18/2019 NADIR LIM MD Ot Z98.51 TUBAL LIGATION STATUS 05/20/2019 NEERU SORIANO Ot C18.2 MALIGNANT NEOPLASM OF ASCENDING COLON 05/20/2019 NEERU SORIANO Ot E11.9 TYPE 2 DIABETES MELLITUS WITHOUT COMPLIC 05/20/2019 NEERU SORIANO Ot E78.00 PURE HYPERCHOLESTEROLEMIA, UNSPECIFIED 05/20/2019 NEERU SORIANO Ot I10 ESSENTIAL (PRIMARY) HYPERTENSION 05/20/2019 NEERU SORIANO Ot M17.0 BILATERAL PRIMARY OSTEOARTHRITIS OF KNEE 05/20/2019 NEERU SORIANO N Ot M47.9 SPONDYLOSIS, UNSPECIFIED 05/20/2019 NEERU SORIANO Marcela Ot Z51.0 ENCOUNTER FOR ANTINEOPLASTIC RADIATION T 05/20/2019 NEERU SORIANO Marcela Ot Z79.84 [facility] (CURRENT) USE OF ORAL HYPOGLYC 05/20/2019 NEERU SORIANO N Ot Z79.899 OTHER [facility] (CURRENT) DRUG THERAPY 05/20/2019 NEERU SORIANO N Ot Z80.0 FAMILY HISTORY OF MALIGNANT NEOPLASM OF 06/27/2019 NEERU SORIANO N Ot C18.2 MALIGNANT NEOPLASM OF ASCENDING COLON 06/27/2019 NEERU SORIANO N Ot C50.412 MALIG NEOPLASM OF UPPER-OUTER QUADRANT O 06/27/2019 NEERU SORIANO N Ot E11.9 TYPE 2 DIABETES MELLITUS WITHOUT COMPLIC 06/27/2019 NEERU SORIANO N Ot E78.00 PURE HYPERCHOLESTEROLEMIA, UNSPECIFIED 06/27/2019 BOTIFFANIEMELL N Ot I10 ESSENTIAL (PRIMARY) HYPERTENSION 06/27/2019 NEERU SORIANO Marcela Ot M17.0 BILATERAL PRIMARY OSTEOARTHRITIS OF KNEE 06/27/2019 NEERU SORIANO N Ot M47.9 SPONDYLOSIS, UNSPECIFIED 06/27/2019 NEERU SORIANO N Ot Z79.84 [facility] (CURRENT) USE OF ORAL HYPOGLYC 06/27/2019 NEERU SORIANO N Ot 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 06/27/2019 NEERU SORIANO N Ot Z80.0 FAMILY HISTORY OF MALIGNANT NEOPLASM OF 06/27/2019 NEERU SORIANO Marcela Ot Z90.49 ACQUIRED ABSENCE OF OTHER SPECIFIED PART 06/27/2019 NEERU SORIANO N Ot Z92.3 PERSONAL HISTORY OF IRRADIATION 06/28/2019 NEERU SORIANO N Ot C18.2 MALIGNANT NEOPLASM OF ASCENDING COLON 06/28/2019 NEERU SORIANO N Ot C50.412 MALIG NEOPLASM OF UPPER-OUTER QUADRANT O 06/28/2019 NEERU SORIANO N Ot E11.9 TYPE 2 DIABETES MELLITUS WITHOUT COMPLIC 06/28/2019 NEERU SORIANO N Ot E78.00 PURE HYPERCHOLESTEROLEMIA, UNSPECIFIED 06/28/2019 BOTIFFANIEMELL N Ot I10 ESSENTIAL (PRIMARY) HYPERTENSION 06/28/2019 NEERU SORIANO N Ot M17.0 BILATERAL PRIMARY OSTEOARTHRITIS OF KNEE 06/28/2019 NEERU SORIANO N Ot M47.9 SPONDYLOSIS, UNSPECIFIED 06/28/2019 NEERU SORIANO N Ot Z79.84 [facility] (CURRENT) USE OF ORAL HYPOGLYC 06/28/2019 NEERU SORIANO N Ot Z79.899 OTHER [facility] (CURRENT) DRUG THERAPY 06/28/2019 NEERU SORIANO N Ot Z80.0 FAMILY HISTORY OF MALIGNANT NEOPLASM OF 06/28/2019 NEERU SORIANO Ot Z90.49 ACQUIRED ABSENCE OF OTHER SPECIFIED PART 06/28/2019 NEERU SORIANO Ot Z92.3 PERSONAL HISTORY OF IRRADIATION 07/02/2019 NEERU SORIANO N Ot C18.2 MALIGNANT NEOPLASM OF ASCENDING COLON 07/02/2019 NEERU SORIANO N Ot E11.9 TYPE 2 DIABETES MELLITUS WITHOUT COMPLIC 07/02/2019 NEERU SORIANO N Ot E78.00 PURE HYPERCHOLESTEROLEMIA, UNSPECIFIED 07/02/2019 NEERU SORIANO N Ot I10 ESSENTIAL (PRIMARY) HYPERTENSION 07/02/2019 NEERU SORIANO Ot M17.0 BILATERAL PRIMARY OSTEOARTHRITIS OF KNEE 07/02/2019 NEERU SORIANO N Ot M47.9 SPONDYLOSIS, UNSPECIFIED 07/02/2019 NEERU SORIANO Ot Z51.0 ENCOUNTER FOR ANTINEOPLASTIC RADIATION T 07/02/2019 NEERU SORIANO Ot 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 07/02/2019 NEERU SORIANO N Ot 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 07/02/2019 NEERU SORIANO N Ot Z80.0 FAMILY HISTORY OF MALIGNANT NEOPLASM OF 07/29/2019 CARINA ARRIAGA, NADIR Stack Ot E11.9 TYPE 2 DIABETES MELLITUS WITHOUT COMPLIC 07/29/2019 NADIR LIM MD Ot E78.00 PURE HYPERCHOLESTEROLEMIA, UNSPECIFIED 07/29/2019 NADIR LIM MD Ot F32.9 MAJOR DEPRESSIVE DISORDER, SINGLE EPISOD 07/29/2019 CARINA ARRIAGA, NADIR Stack Ot G81.90 HEMIPLEGIA, UNSPECIFIED AFFECTING UNSPEC 07/29/2019 NADIR LIM MD T Ot I10 ESSENTIAL (PRIMARY) HYPERTENSION 07/29/2019 NADIR LIM MD, Ot I63.9 CEREBRAL INFARCTION, UNSPECIFIED 07/29/2019 NADIR LIM MD, Ot R29.727 NIHSS SCORE 27 07/29/2019 NADIR LIM MD, Ot R41.82 ALTERED MENTAL STATUS, UNSPECIFIED 07/29/2019 NADIR LIM MD, Ot R47.01 APHASIA 07/29/2019 NADIR LIM MD, Ot Z79.82 [facility] (CURRENT) USE OF ASPIRIN 07/29/2019 NADIR LIM MD, Ot 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 07/29/2019 NADIR LIM MD, Ot Z80.3 FAMILY HISTORY OF MALIGNANT NEOPLASM OF 07/29/2019 NADIR LIM MD, Ot Z80.8 FAMILY HISTORY OF MALIGNANT NEOPLASM OF 07/29/2019 NADIR LIM MD, Ot Z82.49 FAMILY HX OF ISCHEM HEART DIS AND OTH DI 07/29/2019 NADIR LIM MD, Ot Z85.038 PERSONAL HISTORY OF MALIGNANT NEOPLASM O 07/29/2019 NADIR LIM MD, Ot Z86.018 PERSONAL HISTORY OF OTHER BENIGN NEOPLAS 07/29/2019 NADIR LIM MD, Ot Z98.51 TUBAL LIGATION STATUS 08/12/2019 DIXIE AVALOS DO Ot E11. 9 TYPE 2 DIABETES MELLITUS WITHOUT COMPLIC 08/12/2019 DIXIE AVALOS DO Ot E66. 01 MORBID (SEVERE) OBESITY DUE TO EXCESS CA 08/12/2019 DIXIE AVALOS DO Ot E78. 00 PURE HYPERCHOLESTEROLEMIA, UNSPECIFIED 08/12/2019 DIXIE AVALOS DO Ot E78. 5 HYPERLIPIDEMIA, UNSPECIFIED 08/12/2019 DIXIE AVALOS DO Ot F32. 9 MAJOR DEPRESSIVE DISORDER, SINGLE EPISOD 08/12/2019 DIXIE AVALOS DO Ot I10 ESSENTIAL (PRIMARY) HYPERTENSION 08/12/2019 DIXIE AVALOS DO Ot Z12. 11 ENCOUNTER FOR SCREENING FOR MALIGNANT NE 08/12/2019 DIXIE AVALOS DO Ot Z68. 41 BODY MASS INDEX (BMI) 40.0-44.9, ADULT 08/12/2019 [facility] Z79. 84 [facility] [facility] (CURRENT) USE OF ORAL HYPOGLYC 08/12/2019 [facility] Ot 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 08/12/2019 [facility] Z80. 0 FAMILY HISTORY OF MALIGNANT NEOPLASM OF 08/12/2019 [facility] Z80. 1 FAMILY HISTORY OF MALIG NEOPLASM OF TRAC 08/12/2019 [facility] Z80. 3 FAMILY HISTORY OF MALIGNANT NEOPLASM OF 08/12/2019 [facility] Ot Z85.038 PERSONAL HISTORY OF MALIGNANT NEOPLASM O 08/12/2019 [facility] Z85. 3 PERSONAL HISTORY OF MALIGNANT NEOPLASM O 08/12/2019 [facility] Ot Z90. 89 ACQUIRED ABSENCE OF OTHER ORGANS 08/12/2019 [facility] Z98. 0 INTESTINAL BYPASS AND ANASTOMOSIS STATUS 08/12/2019 [facility] Z98. 51 TUBAL LIGATION STATUS 08/12/2019 [facility] E11. 9 TYPE 2 DIABETES MELLITUS WITHOUT COMPLIC 08/12/2019 [facility] E66. 01 MORBID (SEVERE) OBESITY DUE TO EXCESS CA 08/12/2019 DIXIE AVALOS DO Ot E78. 00 PURE HYPERCHOLESTEROLEMIA, UNSPECIFIED 08/12/2019 [facility] E78. 5 HYPERLIPIDEMIA, UNSPECIFIED 08/12/2019 [facility] Ot F32. 9 MAJOR DEPRESSIVE DISORDER, SINGLE EPISOD 08/12/2019 AVALOS DIXIE TORRES Ot I10 ESSENTIAL (PRIMARY) HYPERTENSION 08/12/2019 [facility] Z12[facility] 11 ENCOUNTER FOR SCREENING FOR MALIGNANT NE 08/12/2019 DIXIE AVALOS DO Ot Z68. 41 BODY MASS INDEX (BMI) 40.0-44.9, ADULT 08/12/2019 [facility] Z79. 84 [facility] (CURRENT) USE OF ORAL HYPOGLYC 08/12/2019 [facility] Z79.899 OTHER [facility] (CURRENT) DRUG THERAPY 08/12/2019 [facility] Z80. 0 FAMILY HISTORY OF MALIGNANT NEOPLASM OF 08/12/2019 VAN BUREN DO, DIXIE D Ot Z80. 1 FAMILY HISTORY OF MALIG NEOPLASM OF TRAC 08/12/2019 VAN BUREN DO, DIXIE D Ot Z80. 3 FAMILY HISTORY OF MALIGNANT NEOPLASM OF 08/12/2019 [place]EN DO, DIXIE D Ot Z85.038 PERSONAL HISTORY OF MALIGNANT NEOPLASM O 08/12/2019 V[place] BUREN DO, DIXIE D Ot Z85. 3 PERSONAL HISTORY OF MALIGNANT NEOPLASM O 08/12/2019 [facility], DIXIE D Ot Z90. 89 ACQUIRED ABSENCE OF OTHER ORGANS 08/12/2019 [facility], DIXIE D Ot Z98. 0 INTESTINAL BYPASS AND ANASTOMOSIS STATUS 08/12/2019 [facility], DIXIE D Ot Z98. 51 TUBAL LIGATION STATUS 09/20/2019 EDSON TORRESRAYO Ot D64.9 ANEMIA, UNSPECIFIED 09/21/2019 NEERU SORIANO Ot C18.2 MALIGNANT NEOPLASM OF ASCENDING COLON 09/21/2019 NEERU SORIANO Ot C50.412 MALIG NEOPLASM OF UPPER-OUTER QUADRANT O 09/21/2019 NEERU SORIANO Ot E11.9 TYPE 2 DIABETES MELLITUS WITHOUT COMPLIC 09/21/2019 NEERU SORIANO Ot E78.00 PURE HYPERCHOLESTEROLEMIA, UNSPECIFIED 09/21/2019 NEERU SORIANO Ot I10 ESSENTIAL (PRIMARY) HYPERTENSION 09/21/2019 NEERU SORIANO Ot M17.0 BILATERAL PRIMARY OSTEOARTHRITIS OF KNEE 09/21/2019 NEERU SORIANO Ot M47.9 SPONDYLOSIS, UNSPECIFIED 09/21/2019 NEERU SORIANO Ot 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 09/21/2019 NEERU SORIANO Ot 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 09/21/2019 NEERU SORIANO Ot Z80.0 FAMILY HISTORY OF MALIGNANT NEOPLASM OF 09/21/2019 NEERU SORIANO Ot Z90.49 ACQUIRED ABSENCE OF OTHER SPECIFIED PART 09/21/2019 NEERU SORIANO Ot Z92.3 PERSONAL HISTORY OF IRRADIATION 09/28/2019 JANE RAY RAYON CONER Ot Z85.3 PERSONAL HISTORY OF MALIGNANT NEOPLASM O 09/28/2019 JANE RAY RAYON CONER Ot Z90.12 ACQUIRED ABSENCE OF LEFT BREAST AND NIPP 10/12/2019 RAYO SANDHU DO Ot D64.9 ANEMIA, UNSPECIFIED Procedures Code Description Performed By Per formed On [id number] RE SECTION OF RIGHT LARGE INTESTINE, OPEN 05/21/2018 Results Test Result Range Methicillin resistant Staphylococcus aur eus (MRSA) screening culture - 01/05/16 14:00 Methicillin resistant Staphylococcus aureus (MRSA) scr eening culture NEG NRG Capillary blood glucose measurement by g lucometer (mass/volume) - 01/11/16 07:17 Capillary blood glucose measurement by glucometer (mas s/volume) 208 mg/dL 70-110 Methicillin resistant Staphylococcus aur eus (MRSA) screening culture - 06/03/17 14:20 Methicillin resistant Staphylococcus aureus (MRSA) scr eening culture NEG NRG Capillary blood glucose measurement by g lucometer (mass/volume) - 06/05/17 08:36 Capillary blood glucose measurement by glucometer (mas s/volume) 162 mg/dL 70-110 Capillary blood glucose measurement by g lucometer (mass/volume) - 04/21/18 09:34 Capillary blood glucose measurement by glucometer (mas s/volume) 199 mg/dL 70-110 Complete blood count (CBC) with automate d white blood cell (WBC) differential - 05/06/18 10:55 Blood leukocytes automated count (number/volume) 7.0 10*3/uL 4.3-11.0 Blood erythrocytes automated count (number/volume) 3.70 10*6/uL 4.35-5.85 Venous blood hemoglobin measurement (mass/volume) 11.2 g/dL 11.5-16.0 Blood hematocrit (volume fraction) 35 % 35-52 Automated erythrocyte mean corpuscular volume 95 [ foz_us] 80-99 Automated erythrocyte mean corpuscular h emoglobin (mass per erythrocyte) 30 pg 25-34 Automated erythrocyte mean corpuscular h emoglobin concentration measurement (mass/volume) 32 g/dL 32-36 Automated erythrocyte distribution width ratio 13. 0 % 10.0- 14.5 Automated blood platelet count (count/volume) 300 10*3/uL [...] 10*3 1.0-4.0 Blood monocytes automated count (number/volume) 0. 5 10*3 0.0-1.0 Automated eosinophil count 0.1 10*3/uL 0 .0-0.3 Automated blood basophil count (count/volume) 0.0 10*3/uL 0.0-0.1 Comprehensive metabolic panel - 05/06/18 10:55 Serum or plasma sodium measurement (moles/volume) 137 mmol/L 135-145 Serum or plasma potassium measurement (moles/volume) 4.5 mmol/L 3.6-5.0 Serum or plasma chloride measurement (moles/volume) 105 mmol/L 98-107 Carbon dioxide 25 mmol/L 21-32 Serum or plasma anion gap determination (moles/volume) 7 mmol/L 5-14 Serum or plasma urea nitrogen measurement (mass/volume ) 18 mg/dL 7-18 Serum or plasma creatinine measurement (mass/volume) 0.79 mg/dL 0.60-1.30 Serum or plasma urea nitrogen/creatinine mass ratio 23 NRG Serum or plasma creatinine measurement w ith calculation of estimated glomerular filtration rate > NRG Serum or plasma glucose measurement (mass/volume) 136 mg/dL 70-105 Serum or plasma calcium measurement (mass/volume) 10.9 mg/dL 8.5-10.1 Serum or plasma total bilirubin measurement (mass/volu me) 0.4 mg/dL 0.1-1.0 Serum or plasma alkaline phosphatase cordell surement (enzymatic activity/volume) 47 U/L 40-136 Serum or plasma aspartate aminotransfera se measurement (enzymatic activity/volume) 20 U/L 5-34 Serum or plasma alanine aminotransferase measurement (enzymatic activity/volume) 21 U/L 0-55 Serum or plasma protein measurement (mass/volume) 7.0 g/dL 6.4-8.2 Serum or plasma albumin measurement (mass/volume) 4.3 g/dL 3.2-4.5 CALCIUM CORRECTED 10.7 mg/dL 8.5-10.1 Serum ragweed IgE antibody assay - 05/06 10:55 [id number] 1.4 % 0.0-5.0 Methicillin resistant Staphylococcus aur eus (MRSA) screening culture - 05/18/18 14:12 Methicillin resistant Staphylococcus aureus (MRSA) scr eening culture NEG NRG Capillary blood glucose measurement by g lucometer (mass/volume) - 05/21/18 10:56 Capillary blood glucose measurement by glucometer (mas s/volume) 212 mg/dL 70-110 Blood type T Indirect antibody screen pa michelle - 05/21/18 11:07 ABO+Rh group AN NRG Transfusion band number [id number] NRG Blood group antibody screen NEGATIVE NR G Automated blood complete blood count (he mogram) panel - 05/22/18 04:15 Blood leukocytes automated count (number/volume) 7.3 10*3/uL 4.3-11.0 Blood erythrocytes automated count (number/volume) 3.27 10*6/uL 4.35-5.85 Venous blood hemoglobin measurement (mass/volume) 10.0 g/dL 11.5-16.0 Blood hematocrit (volume fraction) 32 % 35-52 Automated erythrocyte mean corpuscular volume 97 [ foz_us] 80-99 Automated erythrocyte mean corpuscular h emoglobin (mass per erythrocyte) 31 pg 25-34 Automated erythrocyte mean corpuscular h emoglobin concentration measurement (mass/volume) 32 g/dL 32-36 Automated erythrocyte distribution width ratio 13. 4 % 10.0- 14.5 Automated blood platelet count (count/volume) 249 10*3/uL 130-400 Automated blood platelet mean volume measurement 9.8 [foz_us] 7.4-10.4 Whole blood basic metabolic panel - 11/02 04:15 Serum or plasma sodium measurement (moles/volume) 137 mmol/L 135-145 Serum or plasma potassium measurement (moles/volume) 4.2 mmol/L 3.6-5.0 Serum or plasma chloride measurement (moles/volume) 106 mmol/L 98-107 Carbon dioxide 21 mmol/L 21-32 Serum or plasma anion gap determination (moles/volume) 10 mmol/L 5-14 Serum or plasma urea nitrogen measurement (mass/volume ) 18 mg/dL 7-18 Serum or plasma creatinine measurement (mass/volume) 0.90 mg/dL 0.60-1.30 Serum or plasma urea nitrogen/creatinine mass ratio 20 NRG Serum or plasma creatinine measurement w ith calculation of estimated glomerular filtration rate > NRG Serum or plasma glucose measurement (mass/volume) 223 mg/dL 70-105 Serum or plasma calcium measurement (mass/volume) 10.2 mg/dL 8.5-10.1 Magnesium - 05/22/18 04:15 Magnesium 1.0 mg/dL 1.8-2.4 Capillary blood glucose measurement by g lucometer (mass/volume) - 05/22/18 11:14 Capillary blood glucose measurement by glucometer (mas s/volume) 308 mg/dL 70-110 Capillary blood glucose measurement by g lucometer (mass/volume) - 05/22/18 16:10 Capillary blood glucose measurement by glucometer (mas s/volume) 225 mg/dL 70-110 Capillary blood glucose measurement by g lucometer (mass/volume) - 05/22/18 20:10 Capillary blood glucose measurement by glucometer (mas s/volume) 194 mg/dL 70-110 Capillary blood glucose measurement by g lucometer (mass/volume) - 05/23/18 05:41 Capillary blood glucose measurement by glucometer (mas s/volume) 222 mg/dL 70-110 Automated blood complete blood count (he mogram) panel - 05/23/18 05:45 Blood leukocytes automated count (number/volume) 6.4 10*3/uL 4.3-11.0 Blood erythrocytes automated count (number/volume) 3.00 10*6/uL 4.35-5.85 Venous blood hemoglobin measurement (mass/volume) 9.5 g/dL 11.5-16.0 Blood hematocrit (volume fraction) 29 % 35-52 Automated erythrocyte mean corpuscular volume 95 [ foz_us] 80-99 Automated erythrocyte mean corpuscular h emoglobin (mass per erythrocyte) 32 pg 25-34 Automated erythrocyte mean corpuscular h emoglobin concentration measurement (mass/volume) 33 g/dL 32-36 Automated erythrocyte distribution width ratio 13. 4 % 10.0- 14.5 Automated blood platelet count (count/volume) 229 10*3/uL 130-400 Automated blood platelet mean volume measurement 9.7 [foz_us] 7.4-10.4 Comprehensive metabolic panel - 05/23/18 05:45 Serum or plasma sodium measurement (moles/volume) 138 mmol/L 135-145 Serum or plasma potassium measurement (moles/volume) 3.7 mmol/L 3.6-5.0 Serum or plasma chloride measurement (moles/volume) 107 mmol/L 98-107 Carbon dioxide 23 mmol/L 21-32 Serum or plasma anion gap determination (moles/volume) 8 mmol/L 5-14 Serum or plasma urea nitrogen measurement (mass/volume ) 11 mg/dL 7-18 Serum or plasma creatinine measurement (mass/volume) 0.76 mg/dL 0.60-1.30 Serum or plasma urea nitrogen/creatinine mass ratio 14 NRG Serum or plasma creatinine measurement w ith calculation of estimated glomerular filtration rate > NRG Serum or plasma glucose measurement (mass/volume) 216 mg/dL 70-105 Serum or plasma calcium measurement (mass/volume) 10.8 mg/dL 8.5-10.1 Serum or plasma total bilirubin measurement (mass/volu me) 0.6 mg/dL 0.1-1.0 Serum or plasma alkaline phosphatase cordell surement (enzymatic activity/volume) 51 U/L 40-136 Serum or plasma aspartate aminotransfera se measurement (enzymatic activity/volume) 19 U/L 5-34 Serum or plasma alanine aminotransferase measurement (enzymatic activity/volume) 19 U/L 0-55 Serum or plasma protein measurement (mass/volume) 5.9 g/dL 6.4-8.2 Serum or plasma albumin measurement (mass/volume) 3.5 g/dL 3.2-4.5 CALCIUM CORRECTED 11.2 mg/dL 8.5-10.1 Magnesium - 05/23/18 05:45 Magnesium 1.7 mg/dL 1.8-2.4 Capillary blood glucose measurement by g lucometer (mass/volume) - 05/23/18 11:41 Capillary blood glucose measurement by glucometer (mas s/volume) 260 mg/dL 70-110 Capillary blood glucose measurement by g lucometer (mass/volume) - 05/23/18 15:52 Capillary blood glucose measurement by glucometer (mas s/volume) 184 mg/dL 70-110 Capillary blood glucose measurement by g lucometer (mass/volume) - 05/23/18 19:45 Capillary blood glucose measurement by glucometer (mas s/volume) 198 mg/dL 70-110 Capillary blood glucose measurement by g lucometer (mass/volume) - 05/24/18 05:07 Capillary blood glucose measurement by glucometer (mas s/volume) 243 mg/dL 70-110 Automated blood complete blood count (he mogram) panel - 05/24/18 06:05 Blood leukocytes automated count (number/volume) 5.7 10*3/uL 4.3-11.0 Blood erythrocytes automated count (number/volume) 3.00 10*6/uL 4.35-5.85 Venous blood hemoglobin measurement (mass/volume) 9.2 g/dL 11.5-16.0 Blood hematocrit (volume fraction) 29 % 35-52 Automated erythrocyte mean corpuscular volume 96 [ foz_us] 80-99 Automated erythrocyte mean corpuscular h emoglobin (mass per erythrocyte) 31 pg 25-34 Automated erythrocyte mean corpuscular h emoglobin concentration measurement (mass/volume) 32 g/dL 32-36 Automated erythrocyte distribution width ratio 13. 0 % 10.0- 14.5 Automated blood platelet count (count/volume) 234 10*3/uL 130-400 Automated blood platelet mean volume measurement 9.7 [foz_us] 7.4-10.4 Whole blood basic metabolic panel - 05/15 06:05 Serum or plasma sodium measurement (moles/volume) 139 mmol/L 135-145 Serum or plasma potassium measurement (moles/volume) 3.6 mmol/L 3.6-5.0 Serum or plasma chloride measurement (moles/volume) 105 mmol/L 98-107 Carbon dioxide 25 mmol/L 21-32 Serum or plasma anion gap determination (moles/volume) 9 mmol/L 5-14 Serum or plasma urea nitrogen measurement (mass/volume ) 9 mg/dL 7-18 Serum or plasma creatinine measurement (mass/volume) 0.78 mg/dL 0.60-1.30 Serum or plasma urea nitrogen/creatinine mass ratio 12 NRG Serum or plasma creatinine measurement w ith calculation of estimated glomerular filtration rate > NRG Serum or plasma glucose measurement (mass/volume) 236 mg/dL 70-105 Serum or plasma calcium measurement (mass/volume) 10.9 mg/dL 8.5-10.1 Magnesium - 05/24/18 06:05 Magnesium 1.6 mg/dL 1.8-2.4 Capillary blood glucose measurement by g lucometer (mass/volume) - 05/24/18 11:27 Capillary blood glucose measurement by glucometer (mas s/volume) 319 mg/dL 70-110 Capillary blood glucose measurement by g lucometer (mass/volume) - 05/24/18 15:50 Capillary blood glucose measurement by glucometer (mas s/volume) 241 mg/dL 70-110 Capillary blood glucose measurement by g lucometer (mass/volume) - 05/24/18 20:48 Capillary blood glucose measurement by glucometer (mas s/volume) 201 mg/dL 70-110 Automated blood complete blood count (he mogram) panel - 05/25/18 05:20 Blood leukocytes automated count (number/volume) 5.1 10*3/uL 4.3-11.0 Blood erythrocytes automated count (number/volume) 2.93 10*6/uL 4.35-5.85 Venous blood hemoglobin measurement (mass/volume) 8.9 g/dL 11.5-16.0 Blood hematocrit (volume fraction) 28 % 35-52 Automated erythrocyte mean corpuscular volume 96 [ foz_us] 80-99 Automated erythrocyte mean corpuscular h emoglobin (mass per erythrocyte) 30 pg 25-34 Automated erythrocyte mean corpuscular h emoglobin concentration measurement (mass/volume) 32 g/dL 32-36 Automated erythrocyte distribution width ratio 13. 0 % 10.0- 14.5 Automated blood platelet count (count/volume) 261 10*3/uL 130-400 Automated blood platelet mean volume measurement 9.5 [foz_us] 7.4-10.4 Whole blood basic metabolic panel - 05/15 04/04 05:20 Serum or plasma sodium measurement (moles/volume) 139 mmol/L 135-145 Serum or plasma potassium measurement (moles/volume) 3.7 mmol/L 3.6-5.0 Serum or plasma chloride measurement (moles/volume) 106 mmol/L 98-107 Carbon dioxide 24 mmol/L 21-32 Serum or plasma anion gap determination (moles/volume) 9 mmol/L 5-14 Serum or plasma urea nitrogen measurement (mass/volume ) 12 mg/dL 7-18 Serum or plasma creatinine measurement (mass/volume) 0.81 mg/dL 0.60-1.30 Serum or plasma urea nitrogen/creatinine mass ratio 15 NRG Serum or plasma creatinine measurement w ith calculation of estimated glomerular filtration rate > NRG Serum or plasma glucose measurement (mass/volume) 204 mg/dL 70-105 Serum or plasma calcium measurement (mass/volume) 10.7 mg/dL 8.5-10.1 Magnesium - 05/25/18 05:20 Magnesium 1.6 mg/dL 1.8-2.4 Capillary blood glucose measurement by g lucometer (mass/volume) - 05/25/18 05:54 Capillary blood glucose measurement by glucometer (mas s/volume) 232 mg/dL 70-110 Capillary blood glucose measurement by g lucometer (mass/volume) - 05/25/18 11:15 Capillary blood glucose measurement by glucometer (mas s/volume) 303 mg/dL 70-110 Capillary blood glucose measurement by g lucometer (mass/volume) - 05/25/18 15:47 Capillary blood glucose measurement by glucometer (mas s/volume) 210 mg/dL 70-110 Capillary blood glucose measurement by g lucometer (mass/volume) - 05/25/18 20:32 Capillary blood glucose measurement by glucometer (mas s/volume) 246 mg/dL 70-110 Automated blood complete blood count (he mogram) panel - 05/26/18 03:35 Blood leukocytes automated count (number/volume) 6.4 10*3/uL 4.3-11.0 Blood erythrocytes automated count (number/volume) 3.16 10*6/uL 4.35-5.85 Venous blood hemoglobin measurement (mass/volume) 9.6 g/dL 11.5-16.0 Blood hematocrit (volume fraction) 30 % 35-52 Automated erythrocyte mean corpuscular volume 94 [ foz_us] 80-99 Automated erythrocyte mean corpuscular h emoglobin (mass per erythrocyte) 30 pg 25-34 Automated erythrocyte mean corpuscular h emoglobin concentration measurement (mass/volume) 32 g/dL 32-36 Automated erythrocyte distribution width ratio 12. 7 % 10.0- 14.5 Automated blood platelet count (count/volume) 285 10*3/uL 130-400 Automated blood platelet mean volume measurement 9.6 [foz_us] 7.4-10.4 Whole blood basic metabolic panel - 05/15 05/05 03:35 Serum or plasma sodium measurement (moles/volume) 140 mmol/L 135-145 Serum or plasma potassium measurement (moles/volume) 4.0 mmol/L 3.6-5.0 Serum or plasma chloride measurement (moles/volume) 104 mmol/L 98-107 Carbon dioxide 24 mmol/L 21-32 Serum or plasma anion gap determination (moles/volume) 12 mmol/L 5-14 Serum or plasma urea nitrogen measurement (mass/volume ) 14 mg/dL 7-18 Serum or plasma creatinine measurement (mass/volume) 0.78 mg/dL 0.60-1.30 Serum or plasma urea nitrogen/creatinine mass ratio 18 NRG Serum or plasma creatinine measurement w ith calculation of estimated glomerular filtration rate > NRG Serum or plasma glucose measurement (mass/volume) 198 mg/dL 70-105 Serum or plasma calcium measurement (mass/volume) 10.6 mg/dL 8.5-10.1 Magnesium - 05/26/18 03:35 Magnesium 1.4 mg/dL 1.8-2.4 Capillary blood glucose measurement by g lucometer (mass/volume) - 05/26/18 07:50 Capillary blood glucose measurement by glucometer (mas s/volume) 210 mg/dL 70-110 Capillary blood glucose measurement by g lucometer (mass/volume) - 05/26/18 11:22 Capillary blood glucose measurement by glucometer (mas s/volume) 298 mg/dL 70-110 Methicillin resistant Staphylococcus aur eus (MRSA) screening culture - 10/29/18 09:30 Methicillin resistant Staphylococcus aureus (MRSA) scr eening culture NEG NRG Capillary blood glucose measurement by g lucometer (mass/volume) - 11/05/18 06:53 Capillary blood glucose measurement by glucometer (mas s/volume) 179 mg/dL 70-110 Capillary blood glucose measurement by g lucometer (mass/volume) - 05/11/19 10:23 Capillary blood glucose measurement by glucometer (mas s/volume) 234 mg/dL 70-110 Complete blood count (CBC) with automate d white blood cell (WBC) differential - 05/11/19 19:10 Blood leukocytes automated count (number/volume) 8.9 10*3/uL 4.3-11.0 Blood erythrocytes automated count (number/volume) 3.91 10*6/uL 4.35-5.85 Venous blood hemoglobin measurement (mass/volume) 12.2 g/dL 11.5-16.0 Blood hematocrit (volume fraction) 37 % 35-52 Automated erythrocyte mean corpuscular volume 94 [ foz_us] 80-99 Automated erythrocyte mean corpuscular h emoglobin (mass per erythrocyte) 31 pg 25-34 Automated erythrocyte mean corpuscular h emoglobin concentration measurement (mass/volume) 33 g/dL 32-36 Automated erythrocyte distribution width ratio 13. 5 % 10.0- 14.5 Automated blood platelet count (count/volume) 257 10*3/uL 130-400 Automated blood platelet mean volume measurement 9.5 [foz_us] 7.4-10.4 Automated blood neutrophils/100 leukocytes 87 % 42-75 Automated blood lymphocytes/100 leukocytes 7 % 12-44 Blood monocytes/100 leukocytes 5 % 0-12 Automated blood eosinophils/100 leukocytes 0 % 0-10 Automated blood basophils/100 leukocytes 0 % 0-10 Blood neutrophils automated count (number/volume) 7.8 10*3 1.8-7.8 Blood lymphocytes automated count (number/volume) 0.7 10*3 1.0-4.0 Blood monocytes automated count (number/volume) 0. 5 10*3 0.0-1.0 Automated eosinophil count 0.0 10*3/uL 0 .0-0.3 Automated blood basophil count (count/volume) 0.0 10*3/uL 0.0-0.1 Blood lactic acid measurement (moles/vol ume) - 05/11/19 19:10 Blood lactic acid measurement (moles/volume) 1.47 mmol/L 0.50-2.00 Comprehensive metabolic panel - 05/11/19 19:10 Serum or plasma sodium measurement (moles/volume) 136 mmol/L 135-145 Serum or plasma potassium measurement (moles/volume) 4.5 mmol/L 3.6-5.0 Serum or plasma chloride measurement (moles/volume) 100 mmol/L 98-107 Carbon dioxide 22 mmol/L 21-32 Serum or plasma anion gap determination (moles/volume) 14 mmol/L 5-14 Serum or plasma urea nitrogen measurement (mass/volume ) 18 mg/dL 7-18 Serum or plasma creatinine measurement (mass/volume) 1.05 mg/dL 0.60-1.30 Serum or plasma urea nitrogen/creatinine mass ratio 17 NRG Serum or plasma creatinine measurement w ith calculation of estimated glomerular filtration rate 51 NRG Serum or plasma glucose measurement (mass/volume) 266 mg/dL 70-105 Serum or plasma calcium measurement (mass/volume) 11.6 mg/dL 8.5-10.1 Serum or plasma total bilirubin measurement (mass/volu me) 0.7 mg/dL 0.1-1.0 Serum or plasma alkaline phosphatase cordell surement (enzymatic activity/volume) 81 U/L 40-136 Serum or plasma aspartate aminotransfera se measurement (enzymatic activity/volume) 23 U/L 5-34 Serum or plasma alanine aminotransferase measurement (enzymatic activity/volume) 24 U/L 0-55 Serum or plasma protein measurement (mass/volume) 7.6 g/dL 6.4-8.2 Serum or plasma albumin measurement (mass/volume) 4.4 g/dL 3.2-4.5 CALCIUM CORRECTED 11.3 mg/dL 8.5-10.1 Serum or plasma troponin i.cardiac measu rement (mass/volume) - 05/11/19 19:10 Serum or plasma troponin i.cardiac measurement (mass/v olume) < ng/mL <0.028 PT panel in platelet poor plasma by coag ulation assay - 05/11/19 19:10 Prothrombin time (PT) in platelet poor plasma by coagu lation assay 13.7 s 12.2-14.7 INR in platelet poor plasma or blood by coagulation as say 1.0 0.8-1.4 Activated partial thromboplastin time (a PTT) in platelet poor plasma bycoagulation assay - 05/11/19 19:10 Activated partial thromboplastin time (a PTT) in platelet poor plasma bycoagulation assay 30 s 24-35 Fibrin D-dimer FEU measurement in platel et poor plasma (mass/volume) - 05/11/19 19:10 Fibrin D-dimer FEU measurement in platelet poor plasma (mass/volume) 1.42 ug/mL 0.00-0.49 Serum or plasma C reactive protein measu rement (mass/volume) - 05/11/19 19:10 Serum or plasma C reactive protein measurement (mass/v olume) 0.88 mg/dL 0.00-0.50 Influenza virus A and B antigen detectio n - 05/11/19 19:10 FLU RESULT NEGATIVE FOR INFLUENZA A AND B ANTIGENS BY IA NRG Bacterial blood culture - 05/11/19 19:10 FREE TEXT EXTERNAL SEE COMMENT NRG QUANTITY OF GROWTH Isolated NRG Bacterial blood culture [id number] NRG Bacterial blood culture - 05/11/19 19:15 Bacterial blood culture NG NRG Complete urinalysis with reflex to cultu re - 05/11/19 19:34 Urine color determination YELLOW NRG Urine clarity determination CLEAR NR G Urine pH measurement by test strip 6.0 5-9 Specific gravity of urine by test strip >= 1.016-1.022 Urine protein assay by test strip, semi-quantitative 3+ NEGATIVE Urine glucose detection by automated test strip 3+ NEGATIVE Erythrocytes detection in urine sediment by light micr oscopy TRACE-I NEGATIVE Urine ketones detection by automated test strip 2+ NEGATIVE Urine nitrite detection by test strip NEGATIVE NEGATIVE Urine total bilirubin detection by test strip NEGA TIVE NEGATIVE Urine urobilinogen measurement by automated test strip (mass/volume) 0.2 mg/dL < = 1.0 Urine leukocyte esterase detection by dipstick NEG ATIVE NEGATIVE Automated urine sediment erythrocyte cou nt by microscopy (number/high power field) NONE NRG Automated urine sediment leukocyte count by microscopy (number/high power field) NONE NRG Bacteria detection in urine sediment by light microsco py MODERATE NRG Squamous epithelial cells detection in u rine sediment by light microscopy 5-10 NRG Crystals detection in urine sediment by light microsco py PRESENT NRG Casts detection in urine sediment by light microscopy NONE NRG Mucus detection in urine sediment by light microscopy NEGATIVE NRG Complete urinalysis with reflex to culture NO NRG Calcium oxalate crystals detection in ur ine sediment by light microscopy MODERATE NRG Bacterial urine culture - 05/11/19 19:34 Bacterial urine culture NG NRG Capillary blood glucose measurement by g lucometer (mass/volume) - 05/11/19 19:52 Capillary blood glucose measurement by glucometer (mas s/volume) 250 mg/dL 70-110 ANEMIA ANALYZER - 09/15/19 15:50 Blood leukocytes automated count (number/volume) 5.0 10*3/uL 4.3-11.0 Blood erythrocytes automated count (number/volume) 3.22 10*6/uL 4.35-5.85 Venous blood hemoglobin measurement (mass/volume) 10.0 g/dL 11.5-16.0 Blood hematocrit (volume fraction) 30 % 35-52 Automated erythrocyte mean corpuscular volume 94 [ foz_us] 80-99 Automated erythrocyte mean corpuscular h emoglobin (mass per erythrocyte) 31 pg 25-34 Automated erythrocyte mean corpuscular h emoglobin concentration measurement (mass/volume) 33 g/dL 32-36 Automated erythrocyte distribution width ratio 13. 7 % 10.0- 14.5 Automated blood platelet count (count/volume) 266 10*3/uL 130-400 Automated blood platelet mean volume measurement 10.4 [foz_us] 7.4-10.4 Automated blood neutrophils/100 leukocytes 74 % 42-75 Automated blood lymphocytes/100 leukocytes 15 % 12-44 Blood monocytes/100 leukocytes 10 % NRG Automated blood eosinophils/100 leukocytes 2 % 0-10 Automated blood basophils/100 leukocytes 0 % 0-10 Blood neutrophils automated count (number/volume) 3.7 10*3 1.8-7.8 Blood lymphocytes automated count (number/volume) 0.7 10*3 1.0-4.0 Blood monocytes automated count (number/volume) 0. 4 10*3 0.0-1.0 Automated eosinophil count 0.1 10*3/uL 0 .0-0.3 Automated blood basophil count (count/volume) 0.0 10*3/uL 0.0-0.1 Manual blood segmented neutrophils/100 leukocytes 77 % NRG Blood band neutrophils/100 leukocytes 0 % NRG Manual blood lymphocytes/100 leukocytes 11 % NRG Manual eosinophils/100 leukocytes in nose 2 % NRG Manual blood basophils/100 leukocytes 0 % NRG Blood anisocytosis detection by light microscopy S LIGHT NRG Blood ovalocytes detection by light microscopy SLI GHT NRG Blood poikilocytosis detection by light microscopy SLIGHT NRG Blood hypochromia detection by light microscopy SL IGHT NRG Blood reticulocytes count (number/volume) 54 10*9/ L 24-90 Blood reticulocytes/100 erythrocytes 1.66 % 0.50-2.40 Serum or plasma folate measurement (mass /volume) - 09/15/19 15:50 Serum or plasma folate measurement (mass/volume) 1 1.7 ng/mL >=4.0 Serum iron and total iron binding capaci ty panel - 09/15/19 15:50 TIBC 270 NRG UIBC 204 NRG Serum or plasma iron measurement (mass/volume) 66 NRG Total iron binding capacity and transferrin saturation measurement 24 NRG VITAMIN B 12 - 09/15/19 15:50 VITAMIN B 12 584 pg/mL 190-1100 Complete blood count (CBC) with automate d white blood cell (WBC) differential - 10/25/19 21:00 Blood leukocytes automated count (number/volume) 11.3 10*3/uL 4.3-11.0 Blood erythrocytes automated count (number/volume) 3.67 10*6/uL 4.35-5.85 Venous blood hemoglobin measurement (mass/volume) 11.6 g/dL 11.5-16.0 Blood hematocrit (volume fraction) 34 % 35-52 Automated erythrocyte mean corpuscular volume 92 [ foz_us] 80-99 Automated erythrocyte mean corpuscular h emoglobin (mass per erythrocyte) 32 pg 25-34 Automated erythrocyte mean corpuscular h emoglobin concentration measurement (mass/volume) 34 g/dL 32-36 Automated erythrocyte distribution width ratio 13. 2 % 10.0- 14.5 Automated blood platelet count (count/volume) 308 10*3/uL 130-400 Automated blood platelet mean volume measurement 10.1 [foz_us] 7.4-10.4 Automated blood neutrophils/100 leukocytes 78 % 42-75 Automated blood lymphocytes/100 leukocytes 12 % 12-44 Blood monocytes/100 leukocytes 8 % 0-12 Automated blood eosinophils/100 leukocytes 1 % 0-10 Automated blood basophils/100 leukocytes 0 % 0-10 Blood neutrophils automated count (number/volume) 8.8 10*3 1.8-7.8 Blood lymphocytes automated count (number/volume) 1.4 10*3 1.0-4.0 Blood monocytes automated count (number/volume) 0. 9 10*3 0.0-1.0 Automated eosinophil count 0.2 10*3/uL 0 .0-0.3 Automated blood basophil count (count/volume) 0.0 10*3/uL 0.0-0.1 Comprehensive metabolic panel - 10/25/19 21:00 Serum or plasma sodium measurement (moles/volume) 128 mmol/L 135-145 Serum or plasma potassium measurement (moles/volume) 4.7 mmol/L 3.6-5.0 Serum or plasma chloride measurement (moles/volume) 93 mmol/L 98-107 Carbon dioxide 21 mmol/L 21-32 Serum or plasma anion gap determination (moles/volume) 14 mmol/L 5-14 Serum or plasma urea nitrogen measurement (mass/volume ) 79 mg/dL 7-18 Serum or plasma creatinine measurement (mass/volume) 2.78 mg/dL 0.60-1.30 Serum or plasma urea nitrogen/creatinine mass ratio 28 NRG Serum or plasma creatinine measurement w ith calculation of estimated glomerular filtration rate 17 NRG Serum or plasma glucose measurement (mass/volume) 475 mg/dL 70-105 Serum or plasma calcium measurement (mass/volume) 12.0 mg/dL 8.5-10.1 Serum or plasma total bilirubin measurement (mass/volu me) 0.6 mg/dL 0.1-1.0 Serum or plasma alkaline phosphatase cordell surement (enzymatic activity/volume) 69 U/L 40-136 Serum or plasma aspartate aminotransfera se measurement (enzymatic activity/volume) 14 U/L 5-34 Serum or plasma alanine aminotransferase measurement (enzymatic activity/volume) 23 U/L 0-55 Serum or plasma protein measurement (mass/volume) 7.7 g/dL 6.4-8.2 Serum or plasma albumin measurement (mass/volume) 4.3 g/dL 3.2-4.5 CALCIUM CORRECTED 11.8 mg/dL 8.5-10.1 Magnesium - 10/25/19 21:00 Magnesium 1.6 mg/dL 1.6-2.4 Serum or plasma thyroxine (T4) free lorie urement (mass/volume) - 10/25/19 21:00 Serum or plasma thyroxine (T4) free measurement (mass/ volume) 0.97 ng/dL 0.70-1.48 Serum or plasma thyrotropin measurement by detection limit <=0.05 miu/l (units/volume) - 10/25/19 21:00 Serum or plasma thyrotropin measurement by detection limit <=0.05 miu/l (units/volume) 5.10 u[iU]/mL 0.35-4.94 Capillary blood glucose measurement by g lucometer (mass/volume) - 10/25/19 22:57 Capillary blood glucose measurement by glucometer (mas s/volume) 430 mg/dL 70-110 Complete urinalysis with reflex to cultu re - 10/25/19 23:15 Urine color determination OTHER NRG Urine clarity determination SL CLOUDY N RG Urine pH measurement by test strip 5.0 5-9 Specific gravity of urine by test strip 1.015 1.016-1.022 Urine protein assay by test strip, semi-quantitative NEGATIVE NEGATIVE Urine glucose detection by automated test strip 1+ NEGATIVE Erythrocytes detection in urine sediment by light micr oscopy 1+ NEGATIVE Urine ketones detection by automated test strip NE GATIVE NEGATIVE Urine nitrite detection by test strip NEGATIVE NEGATIVE Urine total bilirubin detection by test strip NEGA TIVE NEGATIVE Urine urobilinogen measurement by automated test strip (mass/volume) 0.2 mg/dL < = 1.0 Urine leukocyte esterase detection by dipstick 1+ NEGATIVE Automated urine sediment erythrocyte cou nt by microscopy (number/high power field) [HPF] NRG Automated urine sediment leukocyte count by microscopy (number/high power field) [HPF] NRG Bacteria detection in urine sediment by light microsco py MODERATE NRG Squamous epithelial cells detection in u rine sediment by light microscopy 2-5 NRG Crystals detection in urine sediment by light microsco py NONE NRG Casts detection in urine sediment by light microscopy NONE NRG Mucus detection in urine sediment by light microscopy SMALL NRG Complete urinalysis with reflex to culture YES NRG Bacterial urine culture - 10/25/19 23:15 Bacterial urine culture [id number] NRG COLONY COUNT >100,000/ML NRG SUSCEPTIBILITY SUSCEPTIBILITY REPORTED 10/26 09:30 NRG RAPID ID PRELIM RAPID ID TEST AT [facility] 10/25 11:55 NRG ID CONFIRMATION RML CONFIRMED ID 10/26/19 15:05 NRG Dirithromycin susceptibility test by dis k diffusion - 10/25/19 23:15 Vancomycin susceptibility test by minimum inhibitory c oncentration 2 NRG Levofloxacin susceptibility test by minimum inhibitory concentration 2 NRG Ampicillin susceptibility test by minimum inhibitory c oncentration 1 NRG Nitrofurantoin susceptibility test by nh nimum inhibitory concentration <= NRG Linezolid susceptibility test by minimum inhibitory co ncentration 2 NRG Daptomycin susc YEN 2 NRG Capillary blood glucose measurement by g lucometer (mass/volume) - 10/26/19 00:04 Capillary blood glucose measurement by glucometer (mas s/volume) 404 mg/dL 70-110 Capillary blood glucose measurement by g lucometer (mass/volume) - 10/26/19 00:35 Capillary blood glucose measurement by glucometer (mas s/volume) 395 mg/dL 70-110 Complete blood count (CBC) with automate d white blood cell (WBC) differential - 10/26/19 05:10 Blood leukocytes automated count (number/volume) 5.8 10*3/uL 4.3-11.0 Blood erythrocytes automated count (number/volume) 3.28 10*6/uL 4.35-5.85 Venous blood hemoglobin measurement (mass/volume) 10.3 g/dL 11.5-16.0 Blood hematocrit (volume fraction) 30 % 35-52 Automated erythrocyte mean corpuscular volume 91 [ foz_us] 80-99 Automated erythrocyte mean corpuscular h emoglobin (mass per erythrocyte) 31 pg 25-34 Automated erythrocyte mean corpuscular h emoglobin concentration measurement (mass/volume) 34 g/dL 32-36 Automated erythrocyte distribution width ratio 12. 8 % 10.0- 14.5 Automated blood platelet count (count/volume) 242 10*3/uL 130-400 Automated blood platelet mean volume measurement 9.6 [foz_us] 7.4-10.4 Automated blood neutrophils/100 leukocytes 74 % 42-75 Automated blood lymphocytes/100 leukocytes 14 % 12-44 Blood monocytes/100 leukocytes 11 % 0-12 Automated blood eosinophils/100 leukocytes 1 % 0-10 Automated blood basophils/100 leukocytes 0 % 0-10 Blood neutrophils automated count (number/volume) 4.3 10*3 1.8-7.8 Blood lymphocytes automated count (number/volume) 0.8 10*3 1.0-4.0 Blood monocytes automated count (number/volume) 0. 6 10*3 0.0-1.0 Automated eosinophil count 0.1 10*3/uL 0 .0-0.3 Automated blood basophil count (count/volume) 0.0 10*3/uL 0.0-0.1 Whole blood basic metabolic panel - 10/15 04/05 05:10 Serum or plasma sodium measurement (moles/volume) 133 mmol/L 135-145 Serum or plasma potassium measurement (moles/volume) 4.2 mmol/L 3.6-5.0 Serum or plasma chloride measurement (moles/volume) 101 mmol/L 98-107 Carbon dioxide 20 mmol/L 21-32 Serum or plasma anion gap determination (moles/volume) 12 mmol/L 5-14 Serum or plasma urea nitrogen measurement (mass/volume ) 80 mg/dL 7-18 Serum or plasma creatinine measurement (mass/volume) 2.31 mg/dL 0.60-1.30 Serum or plasma urea nitrogen/creatinine mass ratio 35 NRG Serum or plasma creatinine measurement w ith calculation of estimated glomerular filtration rate 20 NRG Serum or plasma glucose measurement (mass/volume) 244 mg/dL 70-105 Serum or plasma calcium measurement (mass/volume) 11.0 mg/dL 8.5-10.1 Capillary blood glucose measurement by g lucometer (mass/volume) - 10/26/19 09:34 Capillary blood glucose measurement by glucometer (mas s/volume) 241 mg/dL 70-110 Capillary blood glucose measurement by g lucometer (mass/volume) - 10/26/19 14:22 Capillary blood glucose measurement by glucometer (mas s/volume) 297 mg/dL 70-110 Capillary blood glucose measurement by g lucometer (mass/volume) - 10/26/19 16:28 Capillary blood glucose measurement by glucometer (mas s/volume) 256 mg/dL 70-110 Capillary blood glucose measurement by g lucometer (mass/volume) - 10/26/19 20:44 Capillary blood glucose measurement by glucometer (mas s/volume) 264 mg/dL 70-110 Whole blood basic metabolic panel - 10/15 05/06 05:00 Serum or plasma sodium measurement (moles/volume) 137 mmol/L 135-145 Serum or plasma potassium measurement (moles/volume) 5.0 mmol/L 3.6-5.0 Serum or plasma chloride measurement (moles/volume) 107 mmol/L 98-107 Carbon dioxide 19 mmol/L 21-32 Serum or plasma anion gap determination (moles/volume) 11 mmol/L 5-14 Serum or plasma urea nitrogen measurement (mass/volume ) 68 mg/dL 7-18 Serum or plasma creatinine measurement (mass/volume) 1.90 mg/dL 0.60-1.30 Serum or plasma urea nitrogen/creatinine mass ratio 36 NRG Serum or plasma creatinine measurement w ith calculation of estimated glomerular filtration rate 26 NRG Serum or plasma glucose measurement (mass/volume) 287 mg/dL 70-105 Serum or plasma calcium measurement (mass/volume) 10.7 mg/dL 8.5-10.1 Automated blood complete blood count (he mogram) panel - 10/27/19 05:00 Blood leukocytes automated count (number/volume) 5.7 10*3/uL 4.3-11.0 Blood erythrocytes automated count (number/volume) 3.12 10*6/uL 4.35-5.85 Venous blood hemoglobin measurement (mass/volume) 9.8 g/dL 11.5-16.0 Blood hematocrit (volume fraction) 30 % 35-52 Automated erythrocyte mean corpuscular volume 95 [ foz_us] 80-99 Automated erythrocyte mean corpuscular h emoglobin (mass per erythrocyte) 31 pg 25-34 Automated erythrocyte mean corpuscular h emoglobin concentration measurement (mass/volume) 33 g/dL 32-36 Automated erythrocyte distribution width ratio 13. 2 % 10.0- 14.5 Automated blood platelet count (count/volume) 213 10*3/uL 130-400 Automated blood platelet mean volume measurement 9.9 [foz_us] 7.4-10.4 Capillary blood glucose measurement by g lucometer (mass/volume) - 10/27/19 12:11 Capillary blood glucose measurement by glucometer (mas s/volume) 258 mg/dL 70-110 Capillary blood glucose measurement by g lucometer (mass/volume) - 10/27/19 12:36 Capillary blood glucose measurement by glucometer (mas s/volume) 258 mg/dL 70-110 Capillary blood glucose measurement by g lucometer (mass/volume) - 10/27/19 15:35 Capillary blood glucose measurement by glucometer (mas s/volume) 219 mg/dL 70-110 Capillary blood glucose measurement by g lucometer (mass/volume) - 10/27/19 20:15 Capillary blood glucose measurement by glucometer (mas s/volume) 198 mg/dL 70-110 Capillary blood glucose measurement by g lucometer (mass/volume) - 10/28/19 05:21 Capillary blood glucose measurement by glucometer (mas s/volume) 247 mg/dL 70-110 [facility] - 10/28/19 05:22 Blood leukocytes automated count (number/volume) 4.8 10*3/uL 4.3-11.0 Blood erythrocytes automated count (number/volume) 2.97 10*6/uL 4.35-5.85 Venous blood hemoglobin measurement (mass/volume) 9.5 g/dL 11.5-16.0 Blood hematocrit (volume fraction) 29 % 35-52 Automated erythrocyte mean corpuscular volume 96 [ foz_us] 80-99 Automated erythrocyte mean corpuscular h emoglobin (mass per erythrocyte) 32 pg 25-34 Automated erythrocyte mean corpuscular h emoglobin concentration measurement (mass/volume) 33 g/dL 32-36 Automated erythrocyte distribution width ratio 13. 2 % 10.0- 14.5 Automated blood platelet count (count/volume) 206 10*3/uL 130-400 Automated blood platelet mean volume measurement 10.6 [foz_us] 7.4-10.4 Whole blood basic metabolic panel - 10/15 06/03 05:22 Serum or plasma sodium measurement (moles/volume) 138 mmol/L 135-145 Serum or plasma potassium measurement (moles/volume) 4.8 mmol/L 3.6-5.0 Serum or plasma chloride measurement (moles/volume) 107 mmol/L 98-107 Carbon dioxide 21 mmol/L 21-32 Serum or plasma anion gap determination (moles/volume) 10 mmol/L 5-14 Serum or plasma urea nitrogen measurement (mass/volume ) 52 mg/dL 7-18 Serum or plasma creatinine measurement (mass/volume) 1.49 mg/dL 0.60-1.30 Serum or plasma urea nitrogen/creatinine mass ratio 35 NRG Serum or plasma creatinine measurement w ith calculation of estimated glomerular filtration rate 34 NRG Serum or plasma glucose measurement (mass/volume) 232 mg/dL 70-105 Serum or plasma calcium measurement (mass/volume) 11.4 mg/dL 8.5-10.1 Encounters ACCT No. Visit Date/Time Discharge Status Pt. Type Provider Facility Loc./Unit Complaint [facility] 10/22/2014 05:16:21 ACT Document Registration [id number] 09/24/2019 12:26:00 23:59:59 CLS Outpatient JANE RAY [facility] RAD BREAST CA [id number] 09/15/2019 16:35:00 23:59:59 CLS Outpatient RAYO SANDHU DO [facility] LAB [id number] 09/15/2019 15:41:00 23:59:59 CLS Outpatient NEERU SORIANO V [facility] ONC [id number] 04/12/2019 13:56:00 00:01:00 DIS Outpatient NEERU SORIANO V [facility] ONC [id number] 05/11/2019 18:56:00 21:35:00 DIS Emergency CARINA ARRIAGA, NADIR Stack [facility] ER [id number] 05/11/2019 09:59:00 13:10:00 DIS Outpatient DIXIE AVALOS DO [facility] ENDO HX COLON CA [id number] 05/04/2019 05:35:00 15:47:00 DIS Outpatient DIXIE AVALOS DO [facility] PREOP COLONOSCOPY [id number] 02/04/2019 09:41:00 00:01:00 DIS Outpatient NEERU SORIANO V [facility] ONC [id number] 02/02/2019 10:04:00 23:59:59 CLS Outpatient JANE RAY [facility] RAD POST MENOPAUSAL ,BREAST CANCER [id number] 12/03/2018 12:59:00 00:01:00 DIS Outpatient NEERU SORIANO V [facility] ONC [id number] 11/05/2018 06:27:00 15:55:00 DIS Outpatient DIXIE AVALOS DO [facility] RAD LOBULAR CARCINOMA LEFT BREAST [id number] 10/29/2018 08:43:00 11:02:00 DIS Outpatient DIXIE AVALOS DO [facility] PREOP WIRE LOC. LUMPECTOMY W/ SENTINEL NODE BX,LEFT [id number] 10/12/2018 11:46:00 23:59:59 CLS Outpatient RAYO SANDHU DO [facility] RAD HYPOECHOIC MASS [id number] 09/24/2018 13:07:00 23:59:59 CLS Outpatient RAYO SANDHU DO [facility] RAD ABN MAMMO 02/25 [id number] 06/08/2018 14:47:00 019 00:01:00 DIS Outpatient BONEERU V [facility] ONC [id number] 05/21/2018 10:30:00 12:35:00 DIS Inpatient DIXIE AVALOS DO [facility] 4TH COLON CANCER [id number] 05/18/2018 13:37:00 14:25:00 DIS Outpatient DIXIE AVALOS DO [facility] PREOP LAPAROSOCPIC RIGHT COLO N RESECTION [id number] 05/12/2018 10:35:00 23:59:59 CLS Outpatient DIXIE AVALOS DO [facility] RAD COLON CANCER [id number] 05/06/2018 10:45:00 23:59:59 CLS Outpatient DIXIE AVALOS DO [facility] LAB COLON CA [id number] 04/21/2018 09:10:00 11:35:00 DIS Outpatient AVALOS DIXIE TORRES [facility] ENDO BLOOD IN STOOL [id number] 04/15/2018 10:00:00 16:22:00 DIS Outpatient DIXIE AVALOS DO [facility] PREOP COLONOSCOPY [id number] 02/25/2018 13:25:00 23:59:59 CLS Outpatient RAYO SANDHU DO [facility] RAD ABNORMAL MAMMO [id number] 02/12/2018 14:38:00 23:59:59 CLS Outpatient RAYO SANDHU DO [facility] RAD SCREENING [id number] 08/28/2017 13:26:00 14:27:00 DIS Outpatient RAMSES CORCORAN DO [facility] CARD LUMBAR RADICULO PAULINA [id number] 07/03/2017 12:34:00 13:26:00 DIS Outpatient RAMSES CORCORAN DO [facility] CARD M54.16 LUMBAR RADICULOPATHY [id number] 06/05/2017 08:28:00 018 13:00:00 DIS Outpatient DIXEI AVALOS DO [facility] SDC BACK MASS [id number] 06/03/2017 13:48:00 018 15:32:00 DIS Outpatient DIXIE AVALOS DO [facility] PREOP BACK MASS [id number] 04/10/2017 12:46:00 23:59:59 CLS Outpatient RAMSES CORCORAN DO [facility] CARD LUMBAR RADICULO PAULINA [id number] 02/11/2017 09:45:00 017 23:59:59 CLS Outpatient RAYO SANDHU DO [facility] RAD SCREENING MAMMO GRAM [id number] 11/12/2016 11:33:00 017 23:59:59 CLS Outpatient RAYO SANDHU DO [facility] RAD BACK PAIN GOING DOWN RIGHT LEG [id number] 06/12/2016 12:22:00 017 23:59:59 CLS Outpatient RAYO SANDHU DO [facility] RAD ABNORMAL MAMMO [id number] 01/11/2016 07:05:00 016 12:50:00 DIS Outpatient DIXIE AVALOS DO [facility] RAD RT BREAST MASS [id number] 01/05/2016 13:23:00 016 14:00:00 DIS Outpatient DIXIE AVALOS DO [facility] PREOP RIGHT BREAST LUMP [id number] 12/14/2015 09:32:00 016 23:59:59 CLS Outpatient RAYO SANDHU DO [facility] RAD INCONCLUSIVE MA MMO,DENS BREAST [id number] 12/06/2015 14:07:00 016 23:59:59 CLS Outpatient GELLENDER RAYO TORRES [facility] RAD ABNORMAL MAMMO [id number] 11/24/2015 09:59:00 016 23:59:59 CLS Outpatient LEDYLENRAYO HUGHES DO [facility] RAD SCREENING [id number] 10/09/2015 10:17:00 016 23:59:59 CLS Outpatient LEDYLENDER RAYO TORRES [facility] RAD BACK PAIN [id number] 10/21/2014 14:29:00 015 23:59:59 CLS Outpatient LEDYLENDER RAYO TORRES [facility] RAD SCREENING [id number] 09/15/2013 14:45:00 014 23:59:59 CLS Outpatient LEDYLENDER RAYO TORRES [facility] RAD ROUTINE [id number] 07/21/2012 10:16:00 013 23:59:59 CLS Outpatient GELLENDER RAYO TORRES [facility] RAD SCREENING [id number] 10/28/2019 16:38:00 P EN Preadmit LOPEZ DO, VANESSA DE BILITY [id number] 10/25/2019 23:42:[address] Inpatient CAN ARRIAGA, LAZ Snyder [facility] 4TH ARF,HYPERGLYCEMIA,CONSTIPATI ON [id number] 06/21/2011 13:24:00 Document Registration [id number] 06/13/2011 15:27:00 Document Registration
--- NOTE | 2019-10-28 13:00 | NUR ---
"RD ASSESSMENT PMHx: hypercholesterolemia; HTN; DM; CA(colon) PT INTERACTION: Pt was awake and pleasant during nutrition follow-up. Pt states she has been eating better since last assessment. Note avg PO intake 50-75% x2d, per chart review. Pt states no issues with nausea, vomiting, and diarrhea since last assessment. Pt states some issues with constipation. Note last BM was 10/26, and pt currently on bowel regimen of colace BID, per chart review. ABNORMAL NUTRITION-RELATED LAB VALUES LOW: HIGH: BUN 52; cr 1.49; glu 232; Ca 11.4 Est. kcal needs: 1350 kcal | 15 kcal/kg Est. Pro needs: 72 g Pro | 0.8 g Pro/kg PES STATEMENT: Inadequate oral intake (NI-2.1) related to loss of appetite | constipation as evidenced by pt interview | avg PO intake 50-75% x2d INTERVENTION: Continue with current diet order of CHO 60g/m 1snack diet. Pt may benefit from nutrition supplementation if PO intake declines. Encouraged pt to eat when able. Will continue to follow and reassess as pt needs, intake, and status change. MONITOR/EVALUATE: PO Intake; Plan of Care; Hydration Status; Weight Status; Lab Values Shikha Best, MS, RD, LD"
--- NOTE | 2019-10-28 13:23 | ST Cognitive Linguistic Eval ---
Speech Evaluation-General Medical Diagnosis UTI; CKD 3 Onset Date: Oct 28, 2019 Therapy Diagnosis Therapy Diagnosis: Cognitive-communication Referral Referring Physician: Dr. Patterson Medical History Pertinent Medical History: CVA, DM, HTN, OA, Renal Insufficiency Reviewed History: Yes Social History Current Living Status: Alone (Family checks her daily and very involved) Speech PLF-Current Status Prior Level of Function Patient lives alone with family near by who helps her with her needs daily. Subjective Patient was pleasant and cooperative with the cognitive assessment. Language Eval: Auditory Comprehends Simple Yes/No Ques: Functional Indent/Objects Multiple Mccray: Functional Ident/Pics in Multiple Mccray: Functional Follows 1-Step Commands: Functional Follows Complex Directions: Functional Follows General Conversations: Functional Language Eval: Verbal Language Completes Spontaneous Greeting: Functional Produces Auto, Serial Info: Functional Imitates Simple Words/Phrases: Functional Word Finding: Functional Requests Basic Needs: Functional States Basic Personal Info: Functional Expresses Complex Ideas: Functional Objective Cognitive Domain Attention: WNL Memory: Mild Problem Solving: Functional Executive Functions: WNL Visuospatial Skills: WNL Composite Severity Rating: WNL Clock Drawing Severity Rating: WNL Objective Formal/Standardized Tests [facility] Status ([facility]) Results 27/30, within normal range of function Oral Motor/Speech Production Within Normal Limits Impression Patient is a pleasant 79 y/o female who was admitted to the ARU s/p UTI. Patient has a medical history of a CVA this past May. She had returned to her home following SNF rehab for the past month prior to this admission. The patient was given the UMS with a score of 27/30 obtained. Patient's score is within the normal range of function. At this time patient does not warrant further ST services. Speech Patient Assess Expression of Ideas/Wants: Expression (4) Understanding Verbal Content: Understands (4) Brief Interview-Mental Status: Yes Repetition of Three Words: Three (3) Temporal Orientation: Year: Correct (3) Temporal Orientation: Month: Accurate within 5 days(2) Temporal Orientation: Day: Correct (1) Recall : Wear to say "Sock": Yes, no cue required (2) Recall : Color: Yes, after cueing (1) Recall : Bed: Yes,after cueing (1) Memory/Recall Ability: Current season, That he or she is in a hsp/hsp unit Speech-Plan Patient/Family Goals Patient/Family Goals: Patient plans on returning to her home with strong family support upon rehab discharge. Treatment Plan Speech Therapy Treatment Plan: Discontinue ST Treatment Duration: Oct 28, 2019 Frequency: 1 time per week Estimated Hrs Per Day: .25 hour per day Rehab Potential: Good Barriers to Learning: None identified Pt/Family Agrees to Plan: Yes Safety Risks/Education Teaching Recipient: Patient Teaching Methods: Discussion Response to Teaching: Verbalize Understanding Education Topics Provided: Safety within her room and communication of wants/needs. Time Speech Therapy Time In: 13:00 Speech Therapy Time Out: 13:15 Total Billed Time: 15 Billed Treatment Time 1, SPSNDCOMP AMY Huynh Oct 28, 2019 13:23
--- NOTE | 2019-10-28 13:28 | Occupational Therapy Eval ---
OT Evaluation-General/PLF Medical Diagnosis Admission Date Oct 28, 2019 at 11:52 Medical Diagnosis: UTI; CKD 3 Onset Date: Oct 28, 2019 Therapy Diagnosis Therapy Diagnosis: decreased ADLs skills, weakness Height/Weight Height (Feet): 5 Height (Inches): 3.00 Weight (Pounds): 221 Weight (Ounces): 3.0 Precautions Precautions/Isolations: Fall Prevention, Standard Precautions Weight Bear Status Weight Bearing Restriction: Weight Bearing/Tolerated Referral Physician: Leonardo Referral Reason: Activity Tolerance, Self Care, Evaluation/Treatment, Strengt hening/ROM Medical History Pertinent Medical History: CVA, DM, HTN, OA, Renal Insufficiency Additional Medical History Breast cancer, colon cancer, colon resection Current History Pt brought down to ARU from Med/Surg after coming to hospital due to UTI and dehydration. Reviewed History: Yes Social History Home: Multilevel (but stays on 1 floor) Current Living Status: Alone (Family checks her daily and very involved) Entry Into Home: Stairs With Railing Steps Into Home: 4 ADL-Prior Level of Function SCALE: Activities may be completed with or without assistive devices. 4-Edzjjkgwxs-yoxliak completes the activity by him/herself with no assistance from a helper. 5-Set-up or Clean-up Assistance-helper sets up or cleans up; patient completes activity. [place] assists only prior to or following the activity. 4-Supervision or Touching Assistance-helper provides verbal cues and/or touching/steadying and/or contact guard assistance as patient completes activity. Assistance may be provided throughout the activity or intermittently. 3-Partial/Moderate Assistance-helper does LESS THAN HALF the effort. [place] lifts, holds or supports trunk or limbs, but provides less than half the effort. 2-Substantial/Maximal Assistance-helper does MORE THAN HALF the effort. [place] lifts or holds trunk or limbs and provides more than half the effort. 3-Nmesjrgzs-hvnpxx does ALL the effort. Patient does none of the effort to c omplete the activity. Or, the assistance of 2 or more helpers is required for the patient to complete the activity. If activity was not attempted, code reason: 7-Patient Refused. 9-Not Applicable-not attempted and the patient did not perform the activity before the current illness, exacerbation or injury. 10-Not Attempted due to Environmental Limitations-(lack of equipment, weather restraints, etc.). 88-Not Attempted due to Medical Conditions or Safety Concerns. ADL PLOF Comments Pt reported that she lives at home alone. Her house is multilevel, however she only lives on the first floor. When at home, pt. utilizes walker for mobility. Pt. has a tub with a bench and rails. Her rhyzxwlt-zq-zcn assists her when she is at home for meals and provides her with transportation to grocery store and appointments. Self Care: Needed Some Help Functional Cognition: Independent DME/Equipment: Bath Bench, Grab Bars, Tub/Shower Drive Self: No OT Current Status Subjective Pt with PT when OT entered room. No c/o pain. Pt agreeable to therapy. Mental Status/Objective Patient Orientation: Person, Place, Situation Attachments: IV Current Upper Extremity ROM WFL ADL-Treatment Eating (QC): 6 (Per pt report) Oral Hygiene (QC): 7 (Pt declined as she was about to eat lunch) Shower/Bathe Self (QC): 3 (Mod A) Upper Body Dressing (QC): 5 Lower Body Dressing (QC): 3 (Mod A) On/Off Footwear (QC): 2 (Pt. Max A with slipper socks as she had difficulty bending over.) Toileting Hygiene (QC): 4 (CGA) Co-treat with PT due to need of 2 skilled clinicians. PT focusing on transfers, mobility, and LE strength. OT facilitating ADL skills, functional transfers, and UE strength. Pt. with PT when OT entered room. She agreed to shower with OT. Pt ambulated to shower with CGA and walker. She required mod A for bathing and drying lower legs and feet. Pt. able to don shirt after it was handed to her. She required mod A for LB dressing to thread pants and brief over feet and ankles. Pt required max A for donning slipper socks. Noted that pt required rest breaks throughout session due to quickly fatiguing. PT assisted with mobility and all transfers. She ambulated to reclining chair and was provided her call light and phone. All needs met. Education OT Patient Education: Correct positioning, Energy conservation, Modified ADL techniques, Progress toward Goal/Update tx plan, Purpose of tx/functional activities, Reviewed precautions, Rehab process, Safety issues, Transfer techniques Teaching Recipient: Patient Teaching Methods: Demonstration, Discussion Response to Teaching: Verbalize Understanding, Return Demonstration OT Short Term Goals Short Term Goals Time Frame: Nov 04, 2019 Eatin Oral hygiene: 6 Toileting hygiene: 4 Shower/bathe self: 4 Upper body dressin Lower body dressin Putting on/taking off footwear: 4 OT Retirement Goals Retirement Goals Time Frame: Nov 11, 2019 Eating (QC): 6 Oral Hygiene (QC): 6 Toileting Hygiene (QC): 6 Shower/Bathe Self (QC): 6 Upper Body Dressing (QC): 6 Lower Body Dressing (QC): 6 On/Off Footwear (QC): 6 Additional Goals: 1-Demonstrate ADL Tasks, 2-Verbalize Understanding, 3- ImproveStrength/Odalys 1=Demonstrate adherence to instructed precautions during ADL tasks. 2=Patient will verbalize/demonstrate understanding of assistive devices/modifications for ADL. 3=Patient will improve strength/tolerance for activity to enable patient to perform ADL's. OT Education/Plan Problem List/Assessment Assessment: Decreased Activ Tolerance, Decreased UE Strength, Impaired Funct Balance, Impaired I ADL's, Impaired Self-Care Skills Discharge Recommendations Plan/Recommendations: Continue POC Comment Discharge location and equipment needs to be determined Treatment Plan/Plan of Care Treatment,Training & Education: Yes Patient would benefit from OT for education, treatment and training to promote independence in ADL's, mobility, safety and/or upper extremity function for ADL's. Plan of Care: ADL Retraining, Concurrent Therapy, Functional Mobility, Group Exercise/Act as Ind, UE Funct Exercise/Act Treatment Duration: Nov 11, 2019 Frequency: At least 5 of 7 days/Wk (IRF) Estimated Hrs Per Day: 1.5 hours per day Agreement: Yes Rehab Potential: Good Time/GCodes Start Time: 11:30 Stop Time: 12:30 Total Time Billed (hr/min): 60 Billed Treatment Time [id number] 1, EVM (10 minutes) [id number] ADL 3 (50 minutes) Co-treat with PT. See above notes for designated roles. KEESHA AUGUSTIN OT Oct 28, 2019 13:28
[2019-10-28] MEDS ORDERED: FLEET ENEMA ADULT 1 EA BTL PR PRN (13:30)
[2019-10-28] MEDS ORDERED: SENNA W/DOCUSATE (SENOKOT S) TABLET PO PRN (13:30)
--- NOTE | 2019-10-28 13:33 | PM&R Post Admission Assessment ---
PM&R HP Date of Visit: Oct 29, 2019 Time of Visit: 12:00 History of Present Illness CC: Debility HPI: This is a 79yoWF who was admitted to 4th floor with complaints of weakness and elevated sugar with constipation and was found to be in need of aggressive therapy in order to return home to live independently. PLOF was use of a a walker and her family checks on her multiple times a day. Her UTI treatment has been well tolerated and her sugars have improved since restarting home meds. I have reviewed the chart from med-surg and conferred with RN. Past Tneitdy-Zlqyir-Ftjgpz Hx Past Med/Social Hx: Reviewed Nursing Past Med/Soc Hx, Reviewed and Corrections made Patient Social History Marrital Status: single Employed/Student: retired Alcohol Use: Denies Use Smoking Status: Never a Smoker 2nd Hand Smoke Exposure: No Recent Foreign Travel: No Contact w/other who traveled: Yes Recent Hopitalizations: No Recent Infectious Disease Expo: Yes Immunizations Up To Date Tetanus Booster (TDap): Unknown Pediatric: Yes Date of Pneumonia Vaccine: Mar 17, 2014 Date of Influenza Vaccine: Dec 22, 2018 Seasonal Allergies Seasonal Allergies: Yes (MILD) Past Medical History Surgeries: Abdominal, Tonsillectomy, Tubal Ligation Cardiac: High Cholesterol, Hypertension Neurological: Stroke Reproductive: No Sexually Transmitted Disease: No HIV/AIDS: No Tubal Ligation Genitourinary: Bladder Infection Musculoskeletal: Degenerate Disk Disease, Arthritis, Chronic Back Pain Endocrine: Diabetes, Non-Insulin dep Loss of Vision: Denies Hearing Impairment: Denies Cancer: Breast, Colon Did You Recieve Any Treatments: Yes What Type of Treatment Did You: Surgical Intervention Psychosocial: Depression History of Blood Disorders: No Adverse Reaction to Blood Mtahis: No (N/A) Family History Alcoholism 19 FATHER Completed stroke 19 MOTHER Dementia 19 MOTHER Diabetes mellitus 19 MOTHER G8 BROTHER FH: breast cancer G8 SISTER FH: uterine cancer 19 MOTHER Hypertension G8 BROTHER Respiratory disorder 19 FATHER Prior Level of Function Bed Mobility: 6 Transfers: 6 Gait: 6 Stairs: 5 Indoor Mobility (Ambulation): Independent Stairs: Needed Some Help Prior Devices Use: Walker Self Care: Needed Some Help Functional Cognition: Independent Drive Self: No Current Level of Fuctioning Roll Left to Right: 3 Sit to Lyin Lying to Sitting/Side of Bed: 3 Sit to Stand: 3 Chair/Cdw-cv-Qhfch Xfer: 3 Car Transfer: 3 Does the Patient Walk: Yes Mode of Locomotion: Walk Anticipated Mode of Locomotion: Walk Walk 10 feet: 3 Walk 50 ft with 2 Turns: 3 Walk 150 ft: 88 (unable to walk this distance safely) Walking 10ft on uneven surface: 3 Gait Assistive Device: FWW Does the Pt Use a Wheelchair: No Wheel 50 ft with 2 turns: 9 Wheel 150 ft: 9 1 Step (curb): 3 4 Steps: 88 Walking Assistive Device: Walker 12 Steps: 88 Picking up an Object: 88 (unsafe to attempt) Shower/Bathe Self: 3 Upper Body Dressin Lower Body Dressin On/Off Footwear: 1 Toileting Hygiene: 4 PM&R Allergy/Meds/Data Review Allergies Coded Allergies: No Known Drug Allergies (Unverified , 10/29/18) Home Medications Scheduled Antiox#10/Om3/Dha/Epa/Lut/Zeax (I-Caps with Lutein-[place] 3 Sfg), 1 EACH PO BID, (Reported) Aspirin (Aspirin EC), 81 MG PO DAILY, (Reported) Atorvastatin Calcium (Atorvastatin Calcium), 40 MG PO DAILY, (Reported) Carvedilol (Carvedilol), 12.5 MG PO BID, (Reported) Cholecalciferol (Vitamin D3) (Vitamin D3), 50 MCG PO DAILY, (Reported) Ferrous Sulfate (Iron), 325 MG PO DAILY, (Reported) Ferrous Sulfate (Iron), 650 MG PO HS, (Reported) Furosemide (Furosemide), 40 MG PO DAILY, (Reported) Glimepiride (Glimepiride), 2 MG PO DAILY, (Reported) Hydrochlorothiazide (Hydrochlorothiazide), 25 MG PO DAILY, (Reported) Letrozole (Letrozole), 2.5 MG PO DAILY, (Reported) Levetiracetam (Levetiracetam), 750 MG PO BID, (Reported) Olmesartan Medoxomil (Olmesartan Medoxomil), 40 MG PO DAILY, (Reported) [place] 3 Polyunsat Fatty Acids (Fish Oil 1,000 mg Capsule), 1,000 MG PO BID, (Reported) Pantoprazole Sodium (Pantoprazole Sodium), 40 MG PO DAILY, (Reported) Sertraline HCl (Sertraline HCl), 25 MG PO DAILY, (Reported) Sitagliptin Phosphate (Januvia), 100 MG PO DAILY, (Reported) Scheduled PRN Acetaminophen (Tylenol Arthritis), 650 MG PO Q8H PRN for PAIN-MILD (1-4), (Repor tiffany) Discontinued Medications Amlodipine Besylate (Amlodipine Besylate), 5 MG PO DAILY, (Reported) Discontinued Reason: No Longer Taking Atenolol (Atenolol), 100 MG PO DAILY, (Reported) Discontinued Reason: No Longer Taking Atorvastatin Calcium (Atorvastatin Calcium), 20 MG PO HS, (Reported) Discontinued Reason: No Longer Taking Cholecalciferol (Vitamin D3) (Vitamin D3), 1,000 UNIT PO BID, (Reported) Discontinued Reason: Prescription changed Glimepiride (Glimepiride), 4 MG PO DAILY, (Reported) Discontinued Reason: Duplicate Order Magnesium Oxide (Magnesium), 400 MG PO DAILY, (Reported) Discontinued Reason: No Longer Taking Multivitamin (Multiple Vitamins), 1 TAB PO DAILY, (Reported) Discontinued Reason: Referral/FU Appt-Addtl Olmesartan Medoxomil (Benicar), 20 MG PO DAILY, (Reported) Discontinued Reason: No Longer Taking Sertraline HCl (Sertraline HCl), 50 MG PO DAILY, (Reported) Discontinued Reason: No Longer Taking Sitagliptin Phosphate (Januvia), 100 MG PO DAILY, (Reported) Discontinued Reason: Duplicate Order Tramadol HCl (Tramadol HCl), 50 MG PO BID, (Reported) Discontinued Reason: No Longer Taking Vit A/Vit C/Vit E/Zinc/Copper (Preservision Areds Tablet), 1 TAB PO BID, (Reported) Discontinued Reason: Duplicate Order Current Medications Current Medications Reviewed Review of Systems Constitutional: see HPI, malaise, weakness EENTM: no symptoms reported Respiratory: no symptoms reported Cardiovascular: no symptoms reported Gastrointestinal: constipation Genitourinary: no symptoms reported Musculoskeletal: back pain, joint pain Skin: no symptoms reported Psychiatric/Neurological: Anxiety, Depressed, Emotional Problems All Other Systems Reviewed Negative Unless Noted: Yes Physical Exam Physical Exam Vital Signs Vital Signs - First Documented 10/28/19 11:53 Temp 36.0 Pulse 57 Resp 20 B/P (MAP) 182/71 Pulse Ox 96 O2 Delivery Room Air Capillary Refill : Height, Weight, BMI Height: 5'3.00" Weight: 221lbs. 3.0oz. 100.464778ud; 36.71 BMI Method: General Appearance: No Apparent Distress, WD/WN, Chronically ill, Obese Eyes: Bilateral Eye Normal Inspection, Bilateral Eye PERRL HEENT: PERRL/EOMI, Normal ENT Inspection, Pharynx Normal Neck: Full Range of Motion, Normal Inspection, Non Tender, Supple, Carotid Bruit Respiratory: Chest Non Tender, Lungs Clear, Normal Breath Sounds, No Accessory Muscle Use, No Respiratory Distress Cardiovascular: Regular Rate, Rhythm, No Edema, No Gallop, No JVD, No Murmur, Normal Peripheral Pulses Gastrointestinal: Normal Bowel Sounds, No Organomegaly, No Pulsatile Mass, Non Tender, Soft Back: Normal Inspection, No CVA Tenderness, No Vertebral Tenderness Extremity: Normal Capillary Refill, Normal Inspection, Normal Range of Motion, Non Tender, No Calf Tenderness, No Pedal Edema Neurologic/Psychiatric: Alert, Oriented x3, No Motor/Sensory Deficits, Normal Mood/Affect, narcotics and/or vice detective II-XII Norm as Tested, Abnormal Gait, Motor Weakness (right arm and leg 4/5), Other (generalized weakness all extremities) Skin: Normal Color, Warm/Dry Lymphatic: No Adenopathy PM&R Medical Assessment & Plan REHAB/MEDICAL ASSESSMENT AND PLAN: REHAB IMPAIRMENT GROUP: Debility ETIOLOGIC DIAGNOSIS: Debility The comorbidities that impact the patients function and/or functional outcome by: advanced age, DM OOC, colon and breast cancer hx, obesity REHAB PLAN: The patient is being admitted to our comprehensive inpatient rehabilitation facility and can tolerate the intensity of service consisting of at least: 180 minutes of therapy a day, 5 out of 7 days a week Rehab treatment will consist of: PT OT will focus on regaining more strength in right side and increase stamina and educate on energy conservation The patient/family has a good understanding of our discharge process and will benefit from an interdisciplinary inpatient rehabilitation program. The patient has potential to make improvement and is in need of at least two of the following multidisciplinary therapies including but not limited to physical, occupational, speech, and prosthetics and orthotics. Additionally the patient will need services from respiratory, nutritional services, wound care, psychology, etc. (Customize this to each patient). Given the patients complex condition and risk of further medical complications, rehabilitation services cannot be safely or effectively provided at a lower level of care such as a assisted facility. BARRIERS TO DISCHARGE: Advanced age ESTIMATED LOS: 7 days DISPOSITION: Home RELEVANT CHANGES SINCE PREADMISSION SCREENING: I have compared the patients medical and functional status at the time of the preadmission screening and there are: no changes PROGNOSIS: Good REHABILITATION GOALS: PT OT will focus on regaining more strength in right side and increase stamina and educate on energy conservation All the above goals were reviewed with the patient and he/she is in agreement. By signing this document, I acknowledge that I have personally performed a full physical examination on this patient within 24 hours of admission to this inpatient rehabilitation facility and have determined the patient to be able to tolerate the above course of treatment at an intensive level for a reasonable period of time. I will be completing a detailed individualized Plan of Care for this patient by day #4 of the patients stay based upon the Preadmission Screen, the Post-Admission Evaluation, and the therapy evaluations. Admission Dx/Comorbidities: (1) Debility ICD Codes: R53.81 - Other malaise (2) Constipation Status: Acute ICD Codes: K59.00 - Constipation, unspecified (3) Urinary tract infection Status: Acute ICD Codes: N39.0 - Urinary tract infection, site not specified (4) Acute renal failure Status: Acute ICD Codes: N17.9 - Acute kidney failure, unspecified (5) Hyperglycemia Status: Acute ICD Codes: R73.9 - Hyperglycemia, unspecified (6) Bradyarrhythmia Status: Acute ICD Codes: I49.8 - Other specified cardiac arrhythmias (7) Carcinoma of left breast Status: Chronic ICD Codes: C50.912 - Malignant neoplasm of unspecified site of left female breast (8) Hypertension Status: Chronic ICD Codes: I10 - Essential (primary) hypertension (9) History of colon cancer ICD Codes: Z85.038 - Personal history of other malignant neoplasm of large intestine (10) Hx of colonic polyps ICD Codes: Z86.010 - Personal history of colonic polyps (11) Depression Status: Chronic ICD Codes: F32.9 - Major depressive disorder, single episode, unspecified (12) Right sided weakness Status: Acute ICD Codes: R53.1 - Weakness (13) CVA (cerebral vascular accident) Status: Acute ICD Codes: I63.9 - Cerebral infarction, unspecified Assessment/Plan Assessment and Plan Assess & Plan/Chief Complaint Assessment: Debility UTI CARY on CKD Stage 3 Dehydration s/p IVF NIDDMII HTN History of Stroke with right sided weakness residual DVT ppx: Lovenox Constipation Plan: Constipation management IRF protocol Home meds UTI Tx VANESSA LOPEZ DO Oct 28, 2019 13:32
[2019-10-28] MEDS: polyethylene glycoL POWDER 17 GM (MIRALAX) PACK PO SCH ×2 (13:46→20:01)
[2019-10-28] MEDS ORDERED: PATIENT MAY USE OWN MED,SINGLE MED PO SCH (14:00)
[2019-10-28] MEDS: LETROZOLE 2.5 MG (FEMARA) TAB PO SCH (14:12)
--- NOTE | 2019-10-28 15:24 | Occupational Ther Daily Note ---
OT Current Status-Daily Note Subjective Pt in reclining chair when OT entered room. No c/o pain. Pt agreeable to therapy. Mental Status/Objective Patient Orientation: Person, Place, Time, Situation Attachments: IV ADL-Treatment Therapy Code Descriptions/Definitions Functional [place] Measure: 0=Not Assessed/NA 4=Minimal Assistance 1=Total Assistance 5=Supervision or Setup 2=Maximal Assistance 6=Modified [place] 3=Moderate Assistance 7=Complete IndependenceSCALE: Activities may be completed with or without assistive devices. 3-Isymxhacpg-jweryen completes the activity by him/herself with no assistance from a helper. 5-Set-up or Clean-up Assistance-helper sets up or cleans up; patient completes activity. [place] assists only prior to or following the activity. 4-Supervision or Touching Assistance-helper provides verbal cues and/or touching/steadying and/or contact guard assistance as patient completes activity. Assistance may be provided throughout the activity or intermittently. 3-Partial/Moderate Assistance-helper does LESS THAN HALF the effort. [place] lifts, holds or supports trunk or limbs, but provides less than half the effort. 2-Substantial/Maximal Assistance-helper does MORE THAN HALF the effort. [place] lifts or holds trunk or limbs and provides more than half the effort. 5-Npdvuceav-lpqodi does ALL the effort. Patient does none of the effort to complete the activity. Or, the assistance of 2 or more helpers is required for the patient to complete the activity. If activity was not attempted, code reason: 7-Patient Refused. 9-Not Applicable-not attempted and the patient did not perform the activity before the current illness, exacerbation or injury. 10-Not Attempted due to Environmental Limitations-(lack of equipment, weather restraints, etc.). 88-Not Attempted due to Medical Conditions or Safety Concerns. Toileting Hygiene (QC): 4 Toilet Transfer (QC): 4 Pt requested using bathroom. She ambulated to bathroom with walker and CGA. Pt able to complete toilet hygiene with CGA while in stance. She ambulated partial way to therapy gym with walker and CGA, but fatigued and was pushed remaining distance in w/c. Pt. tolerated 9 minutes of arm pulleys to increase B UE ROM and activity tolerance. Noted that pt fatigued very quickly requiring multiple rest breaks throughout activity. Pt. returned to room in w/c and transferred to bed with CGA. Sit-supine transfer required SBA. Pt. in bed with call light and phone at the end of session. All needs met. Education OT Patient Education: Correct positioning, Energy conservation, Exercise program, Modified ADL techniques, Progress toward Goal/Update tx plan, Purpose of tx/functional activities, Reviewed precautions, Rehab process, Safety issues, Transfer techniques Teaching Recipient: Patient Teaching Methods: Demonstration, Discussion Response to Teaching: Verbalize Understanding, Return Demonstration OT Short Term Goals Short Term Goals Time Frame: Nov 11, 2019 Eatin Oral hygiene: 6 Toileting hygiene: 4 Shower/bathe self: 4 Upper body dressin Lower body dressin Putting on/taking off footwear: 4 OT Mcc Goals Mcc Goals Time Frame: Nov 25, 2019 Eating (QC): 6 Oral Hygiene (QC): 6 Toileting Hygiene (QC): 6 Shower/Bathe Self (QC): 6 Upper Body Dressing (QC): 6 Lower Body Dressing (QC): 6 On/Off Footwear (QC): 6 Additional Goals: 1-Demonstrate ADL Tasks, 2-Verbalize Understanding, 3- ImproveStrength/Odalys 1=Demonstrate adherence to instructed precautions during ADL tasks. 2=Patient will verbalize/demonstrate understanding of assistive de vices/modifications for ADL. 3=Patient will improve strength/tolerance for activity to enable patient to perform ADL's. OT Education/Plan Problem List/Assessment Assessment: Decreased Activ Tolerance, Decreased UE Strength, Dependent Transfers, Impaired Funct Balance, Impaired I ADL's, Impaired Self-Care Skills Discharge Recommendations Plan/Recommendations: Continue POC Treatment Plan/Plan of Care Treatment,Training & Education: Yes Patient would benefit from OT for education, treatment and training to promote independence in ADL's, mobility, safety and/or upper extremity function for ADL's. Plan of Care: ADL Retraining, Concurrent Therapy, Functional Mobility, Group Exercise/Act as Ind, UE Funct Exercise/Act Treatment Duration: Nov 11, 2019 Frequency: At least 5 of 7 days/Wk (IRF) Estimated Hrs Per Day: 1.5 hours per day Agreement: Yes Rehab Potential: Good Time/GCodes Start Time: 14:00 Stop Time: 14:30 Total Time Billed (hr/min): 30 Billed Treatment Time 1, ADL (15 minutes), EX (15 minutes) NACCARATO,KEESHA OT Oct 28, 2019 15:24
[2019-10-28] MEDS: inSUlin ASPART (NovoLOG) 1 UNIT/0.01 ML (CHARGE PER UNIT) SC SCH ×2 (16:07→20:37)
[2019-10-28] MEDS: ENOXAPARIN 30 MG/0.3 ML (LOVENOX) SYR SC SCH (16:07)
[2019-10-28 18:00] VITALS: BP 131/63
[2019-10-28] MEDS: DOCUSATE SODIUM 100 MG (COLACE) CAP PO SCH (20:13)
[2019-10-28] MEDS: LEVETIRACETAM 500 MG (KEPPRA) TAB PO SCH (20:13)
[2019-10-28] MEDS: AMOXICILLIN 500 MG (POLYMOX) CAP PO SCH (20:13)
[2019-10-29 05:04] LABS: BASOPHILS % (AUTO) 0 % (0-10); EOSINOPHILS # (AUTO) 0.2 10^3/uL (0.0-0.3); EOSINOPHILS % (AUTO) 4 % (0-10); HEMATOCRIT 27 % (35-52); HEMOGLOBIN 8.9 G/DL (11.5-16.0); LYMPHOCYTES # (AUTO) 0.8 X 10^3 (1.0-4.0); LYMPHOCYTES % (AUTO) 16 % (12-44); MEAN CORPUSCULAR HEMOGLOBIN 32 PG (25-34); MEAN CORPUSCULAR HGB CONC 33 G/DL (32-36); MEAN CORPUSCULAR VOLUME 96 FL (80-99); MEAN PLATELET VOLUME 9.9 FL (7.4-10.4); MONOCYTES # (AUTO) 0.6 X 10^3 (0.0-1.0); MONOCYTES % (AUTO) 13 % (0-12); NEUTROPHILS # (AUTO) 3.2 X 10^3 (1.8-7.8); NEUTROPHILS % (AUTO) 67 % (42-75); PLATELET COUNT 200 10^3/uL (130-400); RED CELL DISTRIBUTION WIDTH 13.1 % (10.0-14.5); WHITE BLOOD COUNT 4.7 10^3/uL (4.3-11.0)
[2019-10-29 05:43] LABS: ALBUMIN 3.5 GM/DL (3.2-4.5); BILIRUBIN,TOTAL 0.3 MG/DL (0.1-1.0); CALCIUM 11.7 MG/DL (8.5-10.1); CREATININE SERUM 1.28 MG/DL (0.60-1.30); POTASSIUM 4.7 MMOL/L (3.6-5.0)
[2019-10-29] MEDS: GLIMEPIRIDE 2 MG (AMARYL) TAB PO SCH (05:59)
[2019-10-29 06:00] VITALS: BP 132/60
[2019-10-29] MEDS: inSUlin ASPART (NovoLOG) 1 UNIT/0.01 ML (CHARGE PER UNIT) SC SCH ×4 (06:00→21:03)
[2019-10-29 08:00] VITALS: BP 116/57
[2019-10-29] MEDS: AMOXICILLIN 500 MG (POLYMOX) CAP PO SCH ×3 (08:41→20:38)
[2019-10-29] MEDS: LEVETIRACETAM 500 MG (KEPPRA) TAB PO SCH ×2 (08:41→20:38)
[2019-10-29] MEDS: SERTRALINE 50 MG (ZOLOFT) TABLET PO SCH (08:42)
[2019-10-29] MEDS: VITAMIN D3 25 MCG (1,000 UNITS) TABLET PO SCH (08:42)
[2019-10-29] MEDS: ASPIRIN E.C. 81 MG (ECOTRIN) TAB PO SCH (08:42)
[2019-10-29] MEDS: polyethylene glycoL POWDER 17 GM (MIRALAX) PACK PO SCH ×2 (08:42→20:39)
[2019-10-29] MEDS: DOCUSATE SODIUM 100 MG (COLACE) CAP PO SCH ×2 (08:42→20:38)
[2019-10-29] MEDS: PANTOPRAZOLE 40 MG (PROTONIX) TAB PO SCH (08:42)
[2019-10-29] MEDS: LETROZOLE 2.5 MG (FEMARA) TAB PO SCH (08:45)
[2019-10-29] MEDS: ACETAMINOPHEN 325 MG TABLET PO PRN (08:48)
[2019-10-29] MEDS: HYDROCHLOROTHIAZIDE 25 MG (HCTZ) TAB PO SCH (09:18)
--- NOTE | 2019-10-29 09:55 | PM&R Progress Note ---
Subjective HPI/CC On Admission Date Seen by Provider: Oct 29, 2019 Time Seen by Provider: 10:00 Subjective/Events-last exam Amoxil treating the UTI Incontinence continues Appreciate urology consultation for continued incontinence from her stroke Chronic pain is an issue for her back and knee Hgb 8.9, Creatinine 1.28 Checked labs and meds Conferred with RN Reviewed therapy notes Review of Systems General: Fatigue, Malaise Neurological: Weakness Objective Exam Vital Signs Vital Signs Date Time Temp Pulse Resp B/P (MAP) Pulse Ox O2 Delivery O2 Flow Rate FiO2 10/29/19 16:30 36.5 53 16 137/61 (86) 98 Room Air Capillary Refill : Less Than 3 Seconds General Appearance: No Apparent Distress, WD/WN, Chronically ill, Obese HEENT: PERRL/EOMI, Normal ENT Inspection, Pharynx Normal Neck: Full Range of Motion, Normal Inspection, Non Tender, Supple, Carotid Bruit Respiratory: Chest Non Tender, Lungs Clear, Normal Breath Sounds, No Accessory Muscle Use, No Respiratory Distress Cardiovascular: Regular Rate, Rhythm, No Edema, No Gallop, No JVD, No Murmur, Normal Peripheral Pulses Gastrointestinal: Normal Bowel Sounds, No Organomegaly, No Pulsatile Mass, Non Tender, Soft Back: Normal Inspection, No CVA Tenderness, No Vertebral Tenderness Extremity: Normal Capillary Refill, Normal Inspection, Normal Range of Motion, Non Tender, No Calf Tenderness, No Pedal Edema Neurologic/Psychiatric: Alert, Oriented x3, No Motor/Sensory Deficits, Normal Mood/Affect, vehicle modification technician II-XII Norm as Tested, Abnormal Gait, Motor Weakness (right arm and leg 4/5), Other (generalized weakness all extremities) Skin: Normal Color, Warm/Dry Lymphatic: No Adenopathy Results/Procedures Lab Laboratory Tests 10/29/19 04:47 Patient resulted labs reviewed. FIM Transfers Therapy Code Descriptions/Definitions Functional [place] Measure: 0=Not Assessed/NA 4=Minimal Assistance 1=Total Assistance 5=Supervision or Setup 2=Maximal Assistance 6=Modified [place] 3=Moderate Assistance 7=Complete IndependenceSCALE: Activities may be completed with or without assistive devices. 3-Oyiwyseatp-hpxvakl completes the activity by him/herself with no assistance from a helper. 5-Set-up or Clean-up Assistance-helper sets up or cleans up; patient completes activity. [place] assists only prior to or following the activity. 4-Supervision or Touching Assistance-helper provides verbal cues and/or touching/steadying and/or contact guard assistance as patient completes activity. Assistance may be provided throughout the activity or intermittently. 3-Partial/Moderate Assistance-helper does LESS THAN HALF the effort. [place] lifts, holds or supports trunk or limbs, but provides less than half the effort. 2-Substantial/Maximal Assistance-helper does MORE THAN HALF the effort. [place] lifts or holds trunk or limbs and provides more than half the effort. 5-Dsrzvljsn-aiswtr does ALL the effort. Patient does none of the effort to complete the activity. Or, the assistance of 2 or more helpers is required for the patient to complete the activity. If activity was not attempted, code reason: 7-Patient Refused. 9-Not Applicable-not attempted and the patient did not perform the activity before the current illness, exacerbation or injury. 10-Not Attempted due to Environmental Limitations-(lack of equipment, weather restraints, etc.). 88-Not Attempted due to Medical Conditions or Safety Concerns. Roll Left to Right (QC): 3 Sit to Lying (QC): 3 Sit to Stand (QC): 3 Chair/Ihu-dt-Qawmy Xfer(QC): 3 Car Transfer (QC): 3 Gait Training Does the Patient Walk?: Yes Walk 10 feet (QC): 3 Walk 50 ft with 2 Turns(QC): 3 Walk 150 ft (QC): 88 (unable to walk this distance safely) Walking 10ft/uneven surface-QC: 3 Gait Assistive Device: FWW Wheelchair Training Does the Pt Use a Wheelchair?: No Wheel 50 ft with 2 turns (QC): 9 Wheel 150 ft (QC): 9 Stair Training 1 Step (curb) (QC): 3 4 Steps (QC): 88 12 Steps (QC): 88 Balance Picking up an Object (QC): 88 (unsafe to attempt) ADL-Treatment Eating (QC): 6 (Per pt report) Oral Hygiene (QC): 7 (Pt declined as she was about to eat lunch) Shower/Bathe Self (QC): 3 Upper Body Dressing (QC): 5 Lower Body Dressing (QC): 3 (Mod A) On/Off Footwear (QC): 2 (Pt. Max A with slipper socks as she had difficulty bending over.) Toileting Hygiene (QC): 4 Toilet Transfer (QC): 4 Assessment/Plan Assessment and Plan Assess & Plan/Chief Complaint Assessment: Debility UTI CARY on CKD Stage 3 Dehydration s/p IVF NIDDMII HTN History of Stroke with right sided weakness residual DVT ppx: Lovenox Constipation Plan: Constipation management IRF protocol Home meds UTI Tx 10/29/19: Patient doing pretty well Incontinence continues UTI being treated Urology consulted Chronic pain Will start K pad Monitor hemoglobin (1) Debility (2) Constipation Status: Acute (3) Urinary tract infection Status: Acute (4) Acute renal failure Status: Acute (5) Hyperglycemia Status: Acute (6) Bradyarrhythmia Status: Acute (7) Carcinoma of left breast Status: Chronic (8) Hypertension Status: Chronic (9) History of colon cancer (10) Hx of colonic polyps (11) Depression Status: Chronic (12) Right sided weakness Status: Acute (13) CVA (cerebral vascular accident) Status: Acute VANESSA LOPEZ DO Oct 29, 2019 09:55
--- NOTE | 2019-10-29 10:00 | NUR ---
STATES URINARY INCONTINENCY SINCE CVA IN APRIL. HAS NOT SEEN A UROLOGIST. DR. NUNO NOTIFIED OF CONSULT.
[2019-10-29] MEDS: VALSARTAN 160 MG (DIOVAN) TABLET PO SCH (11:00)
--- NOTE | 2019-10-29 11:09 | Physical Therapy Daily Note ---
PT Daily Note-Current Subjective Delightful lady agrees to Rx. States she has worked hard all her life and is ready to get better and get back home. No c/o pain Pain Location: No Pain Reported Mental Status Patient Orientation: Normal For Age Transfers SCALE: Activities may be completed with or without assistive devices. 7-Vzolpvopdz-hyrdoqx completes the activity by him/herself with no assistance from a helper. 5-Set-up or Clean-up Assistance-helper sets up or cleans up; patient completes activity. [place] assists only prior to or following the activity. 4-Supervision or Touching Assistance-helper provides verbal cues and/or touching/steadying and/or contact guard assistance as patient completes activity. Assistance may be provided throughout the activity or intermittently. 3-Partial/Moderate Assistance-helper does LESS THAN HALF the effort. [place] lifts, holds or supports trunk or limbs, but provides less than half the effort. 2-Substantial/Maximal Assistance-helper does MORE THAN HALF the effort. [place] lifts or holds trunk or limbs and provides more than half the effort. 8-Muwcjnrhq-bewxxi does ALL the effort. Patient does none of the effort to complete the activity. Or, the assistance of 2 or more helpers is required for the patient to complete the activity. If activity was not attempted, code reason: 7-Patient Refused. 9-Not Applicable-not attempted and the patient did not perform the activity before the current illness, exacerbation or injury. 10-Not Attempted due to Environmental Limitations-(lack of equipment, weather restraints, etc.). 88-Not Attempted due to Medical Conditions or Safety Concerns. Roll Left & Right (QC): 6 Sit to Lying (QC): 6 Lying to Sitting/Side of Bed(Q: 6 Sit to Stand (QC): 5 Chair/Rkl-wl-Tosaf Xfer(QC): 5 Weight Bearing Right Lower Extremity: Right Weight Bearing/Tolerated Left Lower Extremity: Left Weight Bearing/Tolerated Gait Training Does the Patient Walk?: Yes Walk 10 feet (QC): 4 Walk 50 ft with 2 Turns(QC): 4 Walk 150 ft (QC): 4 Gait Persons Needed: 1 Gait Assistive Device: FWW slow, toe out, Exercises Supine Ex: Bridging, Ankle pumps, Quad Set, Rolling, Glut sets, Heel Slides, Short Arc Quads, Scooting, Straight leg raise, Hip abd/add Supine Reps: 12 (x2) Seated Therapy Exercises: Ankle pumps, Sit to stand, Long arc quads, Hip flexion, Hip abd/add Seated Reps: 12 Assessment Current Status: Good Progress PT Short Term Goals Short Term Goals Time Frame: Nov 04, 2019 Sit to lyin Lying to sitting on side of be: 4 Sit to stand: 4 Walk 150 feet: 4 PT Usp Goals Prosthetics Technician Goals PT Usp Goals Time Frame: Nov 18, 2019 Roll Left & Right (QC): 6 Sit to Lying (QC): 6 Lying-Sitting on Side/Bed(QC): 6 Sit to Stand (QC): 6 Chair/Iwd-ft-Dyuen Xfer(QC): 6 Toilet Transfer (QC): 6 Car Transfer (QC): 6 Does the Patient Walk: Yes Walk 10 feet (QC): 6 Walk 50ft with 2 Turns (QC): 6 Walk 150 ft (QC): 6 Walking 10ft on Uneven Surface: 6 1 Step (curb) (QC): 5 4 Steps (QC): 5 12 Steps (QC): 9 Picking up an Object (QC): 4 Does the Pt use WC or Scooter?: No Wheel 50 feet with 2 turns (QC: 9 Wheel 150 feet: 9 PT Plan Treatment/Plan Treatment Plan: Continue Plan of Care Treatment Plan: Bed Mobility, Education, Functional Activity Odalys, Functional Strength, Group Therapy, Gait, Safety, Therapeutic Exercise, Transfers Treatment Duration: Nov 18, 2019 Frequency: At least 5 of 7 days/Wk (IRF) Estimated Hrs Per Day: 1.5 hours per day Patient and/or Family Agrees t: Yes Safety Risks/Education Patient Education: Gait Training, Transfer Techniques, Correct Positioning, Disease Process, Safety Issues Teaching Recipient: Patient Teaching Methods: Demonstration, Discussion Response to Teaching: Verbalize Understanding, Return Demonstration, Reinforcement Needed Time/GCodes Time In: 1000 Time Out: 1100 Total Billed Treatment Time: 60 Total Billed Treatment 1,EX25m,FA15m,GT20m ANDREZ KING OFFAL ROLLER Oct 29, 2019 11:09
--- NOTE | 2019-10-29 11:42 | Individualized Plan of Care ---
Individualized Plan of Care Rehab Nursing IPOC Order Admission Date Oct 28, 2019 at 11:52 Current Orders Orders Admission Order(Inpt,Obs,Sdc) (10/28/19 07:18) Vital Signs: Per Unit Policy ( 08,16,00 (10/28/19 07:18) Benjamin Pillai 09,21 (10/28/19 07:18) Sequential Compression Device Q4H (10/28/19 07:18) Immigration Patrol Inspector-Inpt Rehab Con (10/28/19 07:18) Rehab Nursing Orders-Ipoc (10/28/19 07:18) Physical Therapy Rehab Orders (10/28/19 07:18) Occupational Therapy Rehab Ord (10/28/19 07:18) Speech Therapy Rehab Orders (10/28/19 07:18) Cbc With Automated Diff (10/29/19 06:00) Comprehensive Metabolic Panel (10/29/19 06:00) General/Regular (10/28/19 Breakfast) Intake & Output 06,14,22 (10/28/19 07:18) Precautions (Aru) (10/28/19 07:18) Weekly Weight WEEK (10/28/19 07:18) Rehab-Intensity Of Therapy (10/28/19 07:18) Initiate Admission Nursing Pro .admission (10/28/19 07:18) Acetaminophen Tablet (Tylenol Tablet) (10/28/19 07:30) Alprazolam Tablet (Xanax Tablet) (10/28/19 07:30) Calcium Carbonate Chew Tablet (Antacid C (10/28/19 07:30) Diphenhydramine Tablet (Benadryl Tablet) (10/28/19 07:30) Docusate Sodium Capsule (Colace Capsule) (10/28/19 09:00) Docusate Sodium Capsule (Colace Capsule) (10/28/19 07:30) Bisacodyl Suppository (Dulcolax Supposit (10/28/19 07:30) Lactulose Oral Solution (Enulose Oral So (10/28/19 07:30) Na Phos/Na Biphos Enema (Fleet Enema Jacob (10/28/19 07:30) Guaifenesin/Codeine Syrup (Robitussin Ac (10/28/19 07:30) Loperamide Tablet (Imodium Tablet) (10/28/19 07:30) Melatonin Tablet (Melatonin Tablet) (10/28/19 07:30) Polyethylene Glycol Powder Pkt (Miralax (10/28/19 09:00) Ondansetron Oral Dissolve Tab (Zofran (10/28/19 07:30) Senna S Tablet (Senokot S Tablet) (10/28/19 09:00) Initiate Admission Nursing Pro .admission (10/28/19 07:18) Admission Arrival Bed Request (10/28/19 11:26) Patient Visit (10/28/19 ) Speech Sound Lang Comp (10/28/19 ) Code/Resuscitation (10/28/19 13:29) Accucheck Achs ACHS (10/28/19 13:29) Ambulate (10/28/19 13:29) Initiate Admission Nursing Pro .admission (10/28/19 13:29) Notify Physician: Vital Signs (10/28/19 13:29) Oxygen-Administer (10/28/19 13:29) Sequential Compression Device Q4H (10/28/19 13:29) Vital Signs: Every 4 Hours (Or (10/28/19 13:29) Weight Bearing Status (10/28/19 13:29) Cho 60g/M 1snack (16-2000 David) (10/28/19 Lunch) Acetaminophen Tablet/Caplet (Tylenol T (10/28/19 13:30) Amoxicillin Capsule (Polymox Capsule) (10/28/19 21:00) Aspirin Enteric Coated Tablet (Ecotrin T (10/29/19 09:00) Atorvastatin Tablet (Lipitor) (10/29/19 09:00) Cholecalciferol Capsule/Tablet (Vitamin (10/29/19 09:00) Docusate Sodium Capsule (Colace Capsule) (10/28/19 21:00) Enoxaparin Injection (Lovenox Injection) (10/28/19 17:00) Glimepiride Tablet (Amaryl Tablet) (10/29/19 07:00) Hydrochlorothiazide Cap/Tablet (Hctz Cap (10/29/19 09:00) Levetiracetam Tablet (Keppra Tablet) (10/28/19 21:00) Na Phos/Na Biphos Enema (Fleet Enema Jacob (10/28/19 13:30) Pantoprazole Tablet (Protonix Tablet) (10/29/19 09:00) Senna S Tablet (Senokot S Tablet) (10/28/19 13:30) Sertraline Tablet (Zoloft Tablet) (10/29/19 09:00) Valsartan Tablet (Diovan Tablet) (10/29/19 09:00) Insulin Aspart (Novolog) (Novolog (Charg (10/28/19 16:00) Consult Cardiology (10/28/19 13:29) Immigration Patrol Inspector Consult (10/28/19 13:29) Patient May Use Own Med,Single (Patient (10/28/19 14:00) Ambulate 08,12,20 (10/28/19 13:52) Sequential Compression Device Q4H (10/28/19 13:52) Dvt/Vte Risk - Notifiy Physici Q4H (10/28/19 13:52) Letrozole (Non-Formulary) (Femara (Non-F (10/28/19 14:00) Patient Visit (10/28/19 ) Pt Eval Moderate Complexity (10/28/19 ) Functional Activities, Ea 15 (10/28/19 ) Consult Urology (10/29/19 09:44) Bladder Scan (10/29/19 14:32) Patient Visit (10/29/19 ) Exercise Therap, Ea 15 Min (10/29/19 ) Functional Activities, Ea 15 (10/29/19 ) Gait Training, Ea 15 Min (10/29/19 ) Straight Cath (Urinary) (10/29/19 15:57) Tolterodine La Capsule (Detrol La Capsul (10/30/19 21:00) Heating Pad (10/29/19 21:38) Rehab Nursing Orders: Ongoing Assess. of Cognitive Status, Ongoing Assess. of Function Status, Bladder Management, Bladder Scan, Bladder Training, Bowel Management, Bowel Training, Disease Management & Educaiton, DVT Prophylaxis, Fall Prevention, Fluid/Electrolyte/Nutrition Mgmt, Infection Prevention, Medication Management & Education, Management of Risks & Complications, M anagement of Skin Intergrity, Nutrition Management, Pain Management, Patient/Family Support, Safety Management Intensity of Therapy to be met Patient to be seen: Min.3h per day/5 of 7d PT IPOC Problem List: Activity Tolerance, Functional Strength, Safety, Balance, Gait, Transfer, Bed Mobility Treatment Plan: Continue Plan of Care Bed Mobility, Education, Functional Activity Odalys, Functional Strength, Group Therapy, Gait, Safety, Therapeutic Exercise, Transfers Treatment Duration: Nov 18, 2019 Frequency: At least 5 of 7 days/Wk (IRF) Estimated Hrs Per Day: 1.5 hours per day OT IPOC Problems: Decreased Activ Tolerance, Decreased UE Strength, Dependent Transfers, Impaired Funct Balance, Impaired I ADL's, Impaired Self-Care Skills OT Treatment, Training and Edu: Yes Plan of Care: ADL Retraining, Concurrent Therapy, Functional Mobility, Group Exercise/Act as Ind, UE Funct Exercise/Act Treatment Duration: Nov 11, 2019 Frequency: At least 5 of 7 days/Wk (IRF) Estimated Hrs Per Day: 1.[address] IPOC Speech Therapy Treatment Plan: Discontinue ST Treatment Duration: Oct 28, 2019 Frequency: 1 time per week Estimated Hrs Per Day: .25 hour per day Immigration Patrol Inspector/Case Mgmt Immigration Patrol Inspector/Case Managemen: Discharge Planning Dietitian/Adz Worker Dietitian/Adz Worker to monitor nutritional status and make changes and/or recommendations as needed and work with speech pathology on dietary upgrades as the occur. Physician IPOC Medical Issues being managed closely and that require the 24 hour availability of a physician: Complex issues including CVA and falls and UTI with incontinence will require close monitoring due to high risk for decompensation. Medical Issues: Bowel/Bladder Function, DVT Prophylaxis, Falls Precautions, Fluid/Electrolyte/Nutrition Balance, Infection Protection, Pain Management Brief Synthesis of Preadmission Screen, Post-Admission Evaluation, and Therapy Evaluations: PT OT will focus on regaining strength on right side and prevent falls and teach energy conservation Medical Prognosis: Good Anticipated Length of Stay: 7 days VANESSA LOPEZ DO Oct 29, 2019 11:42
--- NOTE | 2019-10-29 11:57 | Occupational Ther Daily Note ---
OT Current Status-Daily Note Subjective Pt up in reclining chair when OT entered room. No c/o pain. Pt agreeable to therapy. Mental Status/Objective Patient Orientation: Person, Place, Time, Situation ADL-Treatment Therapy Code Descriptions/Definitions Functional [place] Measure: 0=Not Assessed/NA 4=Minimal Assistance 1=Total Assistance 5=Supervision or Setup 2=Maximal Assistance 6=Modified [place] 3=Moderate Assistance 7=Complete IndependenceSCALE: Activities may be completed with or without assistive devices. 2-Mjvhngnqwj-hkyiwyh completes the activity by him/herself with no assistance from a helper. 5-Set-up or Clean-up Assistance-helper sets up or cleans up; patient completes activity. [place] assists only prior to or following the activity. 4-Supervision or Touching Assistance-helper provides verbal cues and/or to uching/steadying and/or contact guard assistance as patient completes activity. Assistance may be provided throughout the activity or intermittently. 3-Partial/Moderate Assistance-helper does LESS THAN HALF the effort. [place] lifts, holds or supports trunk or limbs, but provides less than half the effort. 2-Substantial/Maximal Assistance-helper does MORE THAN HALF the effort. [place] lifts or holds trunk or limbs and provides more than half the effort. 4-Zlscptbwt-[place] does ALL the effort. Patient does none of the effort to complete the activity. Or, the assistance of 2 or more helpers is required for the patient to complete the activity. If activity was not attempted, code reason: 7-Patient Refused. 9-Not Applicable-not attempted and the patient did not perform the activity before the current illness, exacerbation or injury. 10-Not Attempted due to Environmental Limitations-(lack of equipment, weather restraints, etc.). 88-Not Attempted due to Medical Conditions or Safety Concerns. Toileting Hygiene (QC): 1 (Pt incontinent of bladder) Toilet Transfer (QC): 4 (CGA using walker) Pt requested using bathroom prior to working in therapy gym. She ambulated to bathroom with walker and CGA. Pt able to doff/ don brief with min A for threading over feet while seated on toilet. She ambulated using walker and CGA partial way to gym before fatiguing and using w/c. Pt tolerated 10 minutes on arm bike with min/mod resistance and 2 rest breaks with the goal of increasing B UE strength and overall endurance needed for ADLs and functional activities. Pt then participated in functional activity focused on increasing pinch strength in B hands. Pt returned to room in w/c and transferred to reclining chair with CGA and min A for proper positioning. Call light and phone within reach. All needs met. Education OT Patient Education: Correct positioning, Energy conservation, Exercise program, Modified ADL techniques, Progress toward Goal/Update tx plan, Purpose of tx/functional activities, Reviewed precautions, Rehab process, Safety issues, Transfer techniques Teaching Recipient: Patient Teaching Methods: Demonstration, Discussion Response to Teaching: Verbalize Understanding, Return Demonstration OT Short Term Goals Short Term Goals Time Frame: Nov 04, 2019 Eatin Oral hygiene: 6 Toileting hygiene: 4 Shower/bathe self: 4 Upper body dressin Lower body dressin Putting on/taking off footwear: 4 OT Java Architect Goals Custodial Goals Time Frame: Nov 11, 2019 Eating (QC): 6 Oral Hygiene (QC): 6 Toileting Hygiene (QC): 6 Shower/Bathe Self (QC): 6 Upper Body Dressing (QC): 6 Lower Body Dressing (QC): 6 On/Off Footwear (QC): 6 Additional Goals: 1-Demonstrate ADL Tasks, 2-Verbalize Understanding, 3- ImproveStrength/Odalys 1=Demonstrate adherence to instructed precautions during ADL tasks. 2=Patient will verbalize/demonstrate understanding of assistive d evices/modifications for ADL. 3=Patient will improve strength/tolerance for activity to enable patient to perform ADL's. OT Education/Plan Problem List/Assessment Assessment: Decreased Activ Tolerance, Decreased UE Strength, Dependent Transfers, Impaired Coordination, Impaired Funct Balance, Impaired I ADL's, Impaired Self-Care Skills Discharge Recommendations Plan/Recommendations: Continue POC Treatment Plan/Plan of Care Treatment,Training & Education: Yes Patient would benefit from OT for education, treatment and training to promote independence in ADL's, mobility, safety and/or upper extremity function for ADL's. Plan of Care: ADL Retraining, Concurrent Therapy, Functional Mobility, Group Exercise/Act as Ind, UE Funct Exercise/Act Treatment Duration: Nov 11, 2019 Frequency: At least 5 of 7 days/Wk (IRF) Estimated Hrs Per Day: 1.5 hours per day Agreement: Yes Rehab Potential: Good Time/GCodes Start Time: 11:00 Stop Time: 12:00 Total Time Billed (hr/min): 60 Billed Treatment Time 1, ADL (15'), EX (15'), FA 2 (30') MIC ACUÑA OT Oct 29, 2019 11:57
--- NOTE | 2019-10-29 14:00 | NUR ---
COMPLAIN IV SITE HURTING IN RIGHT AC AND REQUESTED IT OUT. NOT ON IV MEDICATIONS AND IV DC'D.
--- NOTE | 2019-10-29 15:11 | Therapy Group Daily Note ---
Therapy Daily Group Note Patient Education Topic Home Safety, Exercises, Other List Below (orientation to rehab) Exercises LE Seated Exercise, UE Exercise Session Ratio (pt:therapist): 3:1 Goal of Session: Education on ARU Expectations, Home Safety Strategies, UE/LE Strengthing Goal Met for this Session: Yes Pt Benefit of Group: Contributions to Others, F/U Use of Strategies @Home, Increased Functional Safety, Increased Functional Strength, Socialization Other/Notes Pt. participated in group PT OT session this date. Pt. ambulated to and from with FWW SBA. Pt. was social, introducing self and shared briefly her hometown and what she might like to eat when she is out of the hospital. Pt. demonstrated seated U&L extremity exercises to others in group reading and following directions from written illustrated exercises which were distributed to all participants just prior to group. Pt. participated well performing all exercises with a few verbal and tactile cues. Home safety was topic of education with patients sharing their knowledge and experiences. Tripping hazards, adequate lighting sources, efficient ways of communication in case of emergency, as well as bathroom rails etc were covered. Explanation of ARU ex pectations and goals was outlined . Pt. donned mask for entire group session. After group pt. was assisted to room , in to bed and call lima at hand with all needs met. Start Time: 13:00 Stop Time: 14:15 Total Billed Treatment Time: 75 Total Billed Treatment 1, GRP MIC ACUÑA OT Oct 29, 2019 15:11
--- NOTE | 2019-10-29 16:00 | NUR ---
VOIDED 100 CC AND 201 CC POST VOID BLADDER SCAN CALLED TO DR. NUNO. ORDER TO STRAIGHT CATH. PATIENT STATES WAS STRAIGHT CATH'D IN ED ON FRIDAY NIGHT BY "THE A TEAM" AND WAS VERY PAINFUL AND REFUSED TO HAVE IT DONE AGAIN. DR. NUNO NOTIFIED AND TO HAVE BLADDER SCAN POST VOID TONIGHT AND LET HIM KNOW AMOUNT.
[2019-10-29 16:30] VITALS: BP 137/61
--- NOTE | 2019-10-29 16:49 | NUR ---
CM/SS ADMISSION Patient was admitted to ARU 10/28/19 from [facility] med/surg for debility. Other diagnoses, in part, are history of CVA with right sided weakness, UTI, acute renal failure, hyperglycemia, bradyarrhythmia, carcinoma of left breast and history of colon cancer, hypertension, depression. Patient experiencing weakness and reduced independence. Patient resides home alone and wishes to return there as before. She had a CVA 04/2019 and was in [facility] days, she wishes to avoid any return to nursing facility environment. Her son and DIL are her primary supports, her DIL comes over when she showers for safety precautions. Patient indicates they will continue to assist her as needed. PCP: Emerson Odom DO [facility]: [facility] INSURANCE: Medicare, Blue [employer] DME: Using FWW prior to admission, has shower chair, grab bars inside/out of shower. BARRIERS TO DISCHARGE PLANNING: Desire and ability to return home alone, debility and deconditioning. CONTACTS: Enrrique Rizvi [phone] CARLITO Gutierrez [phone] [facility] [address] [address] Patient understands the purpose and process of the weekly patient care conference and that her first review will be Friday, November 03, 2019.
--- NOTE | 2019-10-29 16:52 | Cardiology Progress Note ---
Cardiology SOAP Progress Note Subjective: No cardiac complaints. Objective: I&O/Vital Signs 10/30/19 10/30/19 06:00 09:00 Temp 36.8 Pulse 60 Resp 14 B/P (MAP) 108/52 (70) Pulse Ox 98 O2 Delivery Room Air Room Air 10/30/19 00:00 Intake Total 1110 ml Output Total 100 ml Balance 1010 ml Weight (Pounds): 221 Weight (Ounces): 3.0 Weight (Calculated Kilograms): 100.088142 Constitutional: AAO x 3 Respiratory: chest is bilaterally symmetric, lungs clear to auscultation Cardiovascular: regular rate-rhythm, S1 and S2 Gastrointestional: soft, audible bowel sounds Extremities: normal range of motion, non-tender, normal inspection, pedal edema Neurologic/Psychiatric: no motor/sensory deficits, alert, normal mood/affect, oriented x 3 Results/Procedures: Labs Laboratory Tests 10/29/19 16:04: Glucometer 149H 10/29/19 20:44: Glucometer 189H 10/30/19 05:28: Glucometer 226H 10/30/19 10:40: Glucometer 234H A/P: Assessment/Dx: UTI sepsis, resolved. Acute on chronic kidney disease, Anemia, Sinus bradycardia, asymptomatic. Hypertension, History of colon cancer and breast cancer. Plan: UTI sepsis, resolved. Acute on chronic kidney disease, improved significantly. Anemia, likely due to chronic kidney disease. Sinus bradycardia, rule out and currently in the 50s. Asymptomatic Atenolol discontinued. Echocardiogram showed normal LV function with mild pulmonary hypertension. Mild diastolic dysfunction. Hypertension, discontinue atenolol and consider another agent for hypertension if required. History of colon cancer and breast cancer. Thank you for your consultation. Please call me if you have any questions. Arleen Ha MD, FACP, FACC, FSCAI, FHRS, CCDS Interventional Cardiology Cardiac Electrophysiology Vascular Medicine and Endovascular Interventions Otis HA MD Oct 29, 2019 16:52
--- NOTE | 2019-10-29 17:15 | NUR ---
STATES HAS HAD CONSTIPATION AND BM 2 DAYS AGO ONLY AFTER ENEMA. REQUESTED DULCOLAX SUPPOSITORY.
[2019-10-29] MEDS: ENOXAPARIN 30 MG/0.3 ML (LOVENOX) SYR SC SCH (17:19)
--- NOTE | 2019-10-29 21:05 | NUR ---
After voiding in toilet and being incont of urine in brief, pt's PVR 132. Dr. Carrion notified. New orders received for Detrol LA 4mg PO daily.
[2019-10-30] MEDS: GLIMEPIRIDE 2 MG (AMARYL) TAB PO SCH (05:25)
[2019-10-30] MEDS: inSUlin ASPART (NovoLOG) 1 UNIT/0.01 ML (CHARGE PER UNIT) SC SCH ×4 (05:30→20:29)
[2019-10-30 06:00] VITALS: BP 108/52
--- NOTE | 2019-10-30 06:51 | PM&R Progress Note ---
Subjective HPI/CC On Admission Date Seen by Provider: Oct 30, 2019 Time Seen by Provider: 12:30 Subjective/Events-last exam 10/30/19: Left knee pain persists Daughter at bedside Sugars are ok Decreased motivation noted which appears to be chronic Kpad ordered for back pain Enema given on 10/26 and asked for supp and had BM yesterday PVR 100-200cc and she refused in/out catheter Detrol started 10/29/19: Amoxil treating the UTI Incontinence continues Appreciate urology consultation for continued incontinence from her stroke Chronic pain is an issue for her back and knee Hgb 8.9, Creatinine 1.28 Checked labs and meds Conferred with RN Reviewed therapy notes Review of Systems General: Fatigue, Malaise Genitourinary: Incontinence, Retention Neurological: Weakness, Incoordination Objective Exam Vital Signs Vital Signs Date Time Temp Pulse Resp B/P (MAP) Pulse Ox O2 Delivery O2 Flow Rate FiO2 10/30/19 18:12 Room Air 10/30/19 16:00 36.8 54 16 140/63 (88) 97 Capillary Refill : Less Than 3 Seconds General Appearance: No Apparent Distress, WD/WN, Chronically ill, Obese HEENT: PERRL/EOMI, Normal ENT Inspection, Pharynx Normal Neck: Full Range of Motion, Normal Inspection, Non Tender, Supple, Carotid Bruit Respiratory: Chest Non Tender, Lungs Clear, Normal Breath Sounds, No Accessory Muscle Use, No Respiratory Distress Cardiovascular: Regular Rate, Rhythm, No Edema, No Gallop, No JVD, No Murmur, Normal Peripheral Pulses Gastrointestinal: Normal Bowel Sounds, No Organomegaly, No Pulsatile Mass, Non Tender, Soft Back: Normal Inspection, No CVA Tenderness, No Vertebral Tenderness Extremity: Normal Capillary Refill, Normal Inspection, Normal Range of Motion, Non Tender, No Calf Tenderness, No Pedal Edema Neurologic/Psychiatric: Alert, Oriented x3, No Motor/Sensory Deficits, Normal Mood/Affect, registered public surveyor II-XII Norm as Tested, Abnormal Gait, Motor Weakness (right arm and leg 4/5), Other (generalized weakness all extremities) Skin: Normal Color, Warm/Dry Lymphatic: No Adenopathy Results/Procedures Lab Patient resulted labs reviewed. FIM Transfers Therapy Code Descriptions/Definitions Functional [place] Measure: 0=Not Assessed/NA 4=Minimal Assistance 1=Total Assistance 5=Supervision or Setup 2=Maximal Assistance 6=Modified [place] 3=Moderate Assistance 7=Complete IndependenceSCALE: Activities may be completed with or without assistive devices. 3-Xluhvscglg-tdozdrx completes the activity by him/herself with no assistance from a helper. 5-Set-up or Clean-up Assistance-helper sets up or cleans up; patient completes activity. [place] assists only prior to or following the activity. 4-Supervision or Touching Assistance-helper provides verbal cues and/or touching/steadying and/or contact guard assistance as patient completes activity. Assistance may be provided throughout the activity or intermittently. 3-Partial/Moderate Assistance-helper does LESS THAN HALF the effort. [place] lifts, holds or supports trunk or limbs, but provides less than half the effort. 2-Substantial/Maximal Assistance-helper does MORE THAN HALF the effort. [place] lifts or holds trunk or limbs and provides more than half the effort. 3-Btnggpttf-wpwdlb does ALL the effort. Patient does none of the effort to complete the activity. Or, the assistance of 2 or more helpers is required for the patient to complete the activity. If activity was not attempted, code reason: 7-Patient Refused. 9-Not Applicable-not attempted and the patient did not perform the activity before the current illness, exacerbation or injury. 10-Not Attempted due to Environmental Limitations-(lack of equipment, weather restraints, etc.). 88-Not Attempted due to Medical Conditions or Safety Concerns. Roll Left to Right (QC): 6 Sit to Lying (QC): 6 Sit to Stand (QC): 5 Chair/Wex-ll-Zymlx Xfer(QC): 5 Car Transfer (QC): 3 Gait Training Does the Patient Walk?: Yes Walk 10 feet (QC): 4 Walk 50 ft with 2 Turns(QC): 4 Walk 150 ft (QC): 4 Walking 10ft/uneven surface-QC: 3 Gait Persons Needed: 1 Gait Assistive Device: FWW Wheelchair Training Does the Pt Use a Wheelchair?: No Wheel 50 ft with 2 turns (QC): 9 Wheel 150 ft (QC): 9 Stair Training 1 Step (curb) (QC): 3 4 Steps (QC): 88 12 Steps (QC): 88 Balance Picking up an Object (QC): 88 (unsafe to attempt) ADL-Treatment Eating (QC): 6 (Per pt report) Oral Hygiene (QC): 7 (Pt declined as she was about to eat lunch) Shower/Bathe Self (QC): 3 Upper Body Dressing (QC): 5 Lower Body Dressing (QC): 3 (Mod A) On/Off Footwear (QC): 2 (Pt. Max A with slipper socks as she had difficulty bending over.) Toileting Hygiene (QC): 1 (Pt incontinent of bladder) Toilet Transfer (QC): 4 (CGA using walker) Assessment/Plan Assessment and Plan Assess & Plan/Chief Complaint Assessment: Debility UTI CARY on CKD Stage 3 Dehydration s/p IVF NIDDMII HTN History of Stroke with right sided weakness residual DVT ppx: Lovenox Constipation Plan: Constipation management IRF protocol Home meds UTI Tx 10/29/19: Patient doing pretty well Incontinence continues UTI being treated Urology consulted Chronic pain Will start K pad Monitor hemoglobin 10/30/19: Kpad Detrol for incontinence Decreased motivation noted (1) Debility (2) Constipation Status: Acute (3) Urinary tract infection Status: Acute (4) Acute renal failure Status: Acute (5) Hyperglycemia Status: Acute (6) Bradyarrhythmia Status: Acute (7) Carcinoma of left breast Status: Chronic (8) Hypertension Status: Chronic (9) History of colon cancer (10) Hx of colonic polyps (11) Depression Status: Chronic (12) Right sided weakness Status: Acute (13) CVA (cerebral vascular accident) Status: Acute VANESSA LOPEZ DO Oct 30, 2019 06:51
[2019-10-30 08:00] VITALS: BP 114/53
--- NOTE | 2019-10-30 09:31 | Progress Note - Urology ---
Progress Note-Urology Progress Notes/Assess & Plan Progress/Assessment & Plan PVR SCAN WAS 140, REFUSED STRAIGHT CATH. STARTED ON DETROL LA 4 YESTERDAY AND TOLERATED WELL Final Diagnosis INCONTINENCE LUZ NUNO MD Oct 30, 2019 09:31
[2019-10-30] MEDS: VALSARTAN 160 MG (DIOVAN) TABLET PO SCH (09:32)
[2019-10-30] MEDS: DOCUSATE SODIUM 100 MG (COLACE) CAP PO SCH ×2 (09:33→20:26)
[2019-10-30] MEDS: AMOXICILLIN 500 MG (POLYMOX) CAP PO SCH ×3 (09:33→20:26)
[2019-10-30] MEDS: VITAMIN D3 25 MCG (1,000 UNITS) TABLET PO SCH (09:33)
[2019-10-30] MEDS: SERTRALINE 50 MG (ZOLOFT) TABLET PO SCH (09:34)
[2019-10-30] MEDS: ASPIRIN E.C. 81 MG (ECOTRIN) TAB PO SCH (09:34)
[2019-10-30] MEDS: LEVETIRACETAM 500 MG (KEPPRA) TAB PO SCH ×2 (09:34→20:26)
[2019-10-30] MEDS: PANTOPRAZOLE 40 MG (PROTONIX) TAB PO SCH (09:34)
[2019-10-30] MEDS: polyethylene glycoL POWDER 17 GM (MIRALAX) PACK PO SCH ×2 (09:34→20:18)
[2019-10-30] MEDS: HYDROCHLOROTHIAZIDE 25 MG (HCTZ) TAB PO SCH (09:34)
[2019-10-30] MEDS: ACETAMINOPHEN 325 MG TABLET PO PRN (09:37)
--- NOTE | 2019-10-30 09:40 | NUR ---
MEDICATED FOR ARTHRITIC PAIN IN LEFT KNEE. DR. NUNO SAW PATIENT AND STATES WILL TAKE DETROL 2 WEEKS TO WORK. PATIENT'S WORSE URINARY INCONTINENCE IS AT HS. EASILY FATIGUES AND WOULD RATHER REST THAN DO ACTIVITY.
[2019-10-30] MEDS: LETROZOLE 2.5 MG (FEMARA) TAB PO SCH (09:42)
--- NOTE | 2019-10-30 10:24 | CONSULTATION REPORT ---
DATE OF SERVICE: 10/29/2019 ATTENDING PHYSICIAN: Dr. Patterson. SUMMARY: After reviewing the patient's record and her history and physical exam, this is a 79-year-old white female admitted after a stroke, was found to have urinary incontinence. She denies any incontinence prior to her stroke. Denies any urinary tract infections or hematuria previously. IMPRESSION: Neurogenic bladder with incontinence, probably secondary to the stroke. PLAN: We will check a postvoid residual on her today and manage accordingly. Job ID: [id number] DocumentID: [id number] Dictated Date: 10/30/2019 09:29:35 Sparmaker Date: 10/30/2019 10:23:53 Dictated By: LUZ NUNO MD
--- NOTE | 2019-10-30 12:40 | Physical Therapy Daily Note ---
PT Daily Note-Current Subjective Pt laying Supine in bed upon arrival. Pt agrees to PT for Ex. Pain Location: No Pain Reported Mental Status Patient Orientation: Person, Place, Situation Transfers SCALE: Activities may be completed with or without assistive devices. 7-Rhtpecvrmm-jmletzp completes the activity by him/herself with no assistance from a helper. 5-Set-up or Clean-up Assistance-helper sets up or cleans up; patient completes activity. [place] assists only prior to or following the activity. 4-Supervision or Touching Assistance-helper provides verbal cues and/or touching/steadying and/or contact guard assistance as patient completes activity. Assistance may be provided throughout the activity or intermittently. 3-Partial/Moderate Assistance-helper does LESS THAN HALF the effort. [place] lifts, holds or supports trunk or limbs, but provides less than half the effort. 2-Substantial/Maximal Assistance-helper does MORE THAN HALF the effort. [place] lifts or holds trunk or limbs and provides more than half the effort. 8-Hpiwwidnn-ermjbr does ALL the effort. Patient does none of the effort to complete the activity. Or, the assistance of 2 or more helpers is required for the patient to complete the activity. If activity was not attempted, code reason: 7-Patient Refused. 9-Not Applicable-not attempted and the patient did not perform the activity b efore the current illness, exacerbation or injury. 10-Not Attempted due to Environmental Limitations-(lack of equipment, weather restraints, etc.). 88-Not Attempted due to Medical Conditions or Safety Concerns. Weight Bearing Right Lower Extremity: Right Weight Bearing/Tolerated Left Lower Extremity: Left Weight Bearing/Tolerated Exercises Supine Ex: Ankle pumps (L side only), Quad Set, Glut sets, Heel Slides, Straight leg raise, Hip abd/add Supine Reps: 20 Treatments Pt completes Supine Ex in bed with RB as needed. Assessment Current Status: Fair Progress Pt appears down and SR. MANAGER asks if there is anything that SR. MANAGER can do to help. Pt reports no. Pt completes Ex needing occasional RB for fatigue. PT Short Term Goals Short Term Goals Time Frame: Nov 04, 2019 Sit to lyin Lying to sitting on side of be: 4 Sit to stand: 4 Walk 150 feet: 4 PT Professor Of Archaeology Goals Professor Of Archaeology Goals PT Professor Of Archaeology Goals Time Frame: Nov 18, 2019 Roll Left & Right (QC): 6 Sit to Lying (QC): 6 Lying-Sitting on Side/Bed(QC): 6 Sit to Stand (QC): 6 Chair/Ulf-fa-Sucmr Xfer(QC): 6 Toilet Transfer (QC): 6 Car Transfer (QC): 6 Does the Patient Walk: Yes Walk 10 feet (QC): 6 Walk 50ft with 2 Turns (QC): 6 Walk 150 ft (QC): 6 Walking 10ft on Uneven Surface: 6 1 Step (curb) (QC): 5 4 Steps (QC): 5 12 Steps (QC): 9 Picking up an Object (QC): 4 Does the Pt use WC or Scooter?: No Wheel 50 feet with 2 turns (QC: 9 Wheel 150 feet: 9 PT Plan Problem List Problem List: Activity Tolerance, Functional Strength Treatment/Plan Treatment Plan: Continue Plan of Care Treatment Plan: Bed Mobility, Education, Functional Activity Odalys, Functional Strength, Group Therapy, Gait, Safety, Therapeutic Exercise, Transfers Treatment Duration: Nov 18, 2019 Frequency: At least 5 of 7 days/Wk (IRF) Estimated Hrs Per Day: 1.5 hours per day Patient and/or Family Agrees t: Yes Safety Risks/Education Patient Education: Correct Positioning, Safety Issues Teaching Recipient: Patient Teaching Methods: Discussion Response to Teaching: Verbalize Understanding Time/GCodes Time In: 1119 Time Out: 1142 Total Billed Treatment Time: 23 Total Billed Treatment 1, EX x2 (23m) TASHA HINOJOSA SR. MANAGER Oct 30, 2019 12:40
--- NOTE | 2019-10-30 14:03 | Cardiology Progress Note ---
Cardiology SOAP Progress Note Subjective: No cardiac complaints. Objective: I&O/Vital Signs 10/30/19 10/30/19 06:00 09:00 Temp 36.8 Pulse 60 Resp 14 B/P (MAP) 108/52 (70) Pulse Ox 98 O2 Delivery Room Air Room Air 10/30/19 00:00 Intake Total 1110 ml Output Total 100 ml Balance 1010 ml Weight (Pounds): 221 Weight (Ounces): 3.0 Weight (Calculated Kilograms): 100.610842 Constitutional: AAO x 3 Respiratory: chest is bilaterally symmetric, lungs clear to auscultation Cardiovascular: regular rate-rhythm, S1 and S2 Gastrointestional: soft, audible bowel sounds Extremities: normal range of motion, non-tender, normal inspection, pedal edema Neurologic/Psychiatric: no motor/sensory deficits, alert, normal mood/affect, oriented x 3 Results/Procedures: Labs Laboratory Tests 10/29/19 16:04: Glucometer 149H 10/29/19 20:44: Glucometer 189H 10/30/19 05:28: Glucometer 226H 10/30/19 10:40: Glucometer 234H A/P: Assessment/Dx: UTI sepsis, resolved. Acute on chronic kidney disease, Anemia, Sinus bradycardia, asymptomatic. Hypertension, History of colon cancer and breast cancer. Plan: UTI sepsis, resolved. Acute on chronic kidney disease, improved significantly. Anemia, likely due to chronic kidney disease. Sinus bradycardia, rule out and currently in the 50s. Asymptomatic Atenolol discontinued. Echocardiogram showed normal LV function with mild pulmonary hypertension. Mild diastolic dysfunction. Hypertension, discontinue atenolol and consider another agent for hypertension if required. History of colon cancer and breast cancer. Thank you for your consultation. Please call me if you have any questions. Arleen Ha MD, FACP, FACC, FSCAI, FHRS, CCDS Interventional Cardiology Cardiac Electrophysiology Vascular Medicine and Endovascular Interventions Otis HA MD Oct 30, 2019 14:03
[2019-10-30 16:00] VITALS: BP 140/63
[2019-10-30] MEDS: ENOXAPARIN 40 MG/0.4 ML (LOVENOX) SYR SC SCH (16:27)
[2019-10-30] MEDS: TOLTERODINE LA 4 MG (DETROL) CAP PO SCH (20:25)
[2019-10-31] MEDS: inSUlin ASPART (NovoLOG) 1 UNIT/0.01 ML (CHARGE PER UNIT) SC SCH ×4 (05:50→20:18)
[2019-10-31] MEDS: GLIMEPIRIDE 2 MG (AMARYL) TAB PO SCH (05:50)
[2019-10-31 06:25] VITALS: BP 124/58
[2019-10-31 08:00] VITALS: BP 130/52
[2019-10-31] MEDS: VALSARTAN 160 MG (DIOVAN) TABLET PO SCH (09:15)
[2019-10-31] MEDS: VITAMIN D3 25 MCG (1,000 UNITS) TABLET PO SCH (09:16)
[2019-10-31] MEDS: ASPIRIN E.C. 81 MG (ECOTRIN) TAB PO SCH (09:16)
[2019-10-31] MEDS: AMOXICILLIN 500 MG (POLYMOX) CAP PO SCH ×3 (09:16→20:17)
[2019-10-31] MEDS: DOCUSATE SODIUM 100 MG (COLACE) CAP PO SCH ×2 (09:17→20:18)
[2019-10-31] MEDS: PANTOPRAZOLE 40 MG (PROTONIX) TAB PO SCH (09:17)
[2019-10-31] MEDS: LEVETIRACETAM 500 MG (KEPPRA) TAB PO SCH ×2 (09:17→20:18)
[2019-10-31] MEDS: SERTRALINE 50 MG (ZOLOFT) TABLET PO SCH (09:18)
[2019-10-31] MEDS: HYDROCHLOROTHIAZIDE 25 MG (HCTZ) TAB PO SCH (09:20)
[2019-10-31] MEDS: ACETAMINOPHEN 325 MG TABLET PO PRN (09:20)
[2019-10-31] MEDS: polyethylene glycoL POWDER 17 GM (MIRALAX) PACK PO SCH ×3 (09:21→20:17)
[2019-10-31] MEDS: LETROZOLE 2.5 MG (FEMARA) TAB PO SCH (09:21)
--- NOTE | 2019-10-31 10:00 | NUR ---
STATES K PAD HELPS BACK PAIN. INCONTINENT OF URINE AT TIMES AND ABLE TO MAKE IT TO TOILET AT OTHER TIMES. ON DETROL.
--- NOTE | 2019-10-31 11:22 | PM&R Progress Note ---
Subjective HPI/CC On Admission Date Seen by Provider: Oct 31, 2019 Time Seen by Provider: 12:15 Subjective/Events-last exam 10/31/19: Patient feels pretty well Kpad helping with back pain Motivation is low chronically BM yesterday Laxatives maintained 10/30/19: Left knee pain persists Daughter at bedside Sugars are ok Decreased motivation noted which appears to be chronic Kpad ordered for back pain Enema given on 10/26 and asked for supp and had BM yesterday PVR 100-200cc and she refused in/out catheter Detrol started 10/29/19: Amoxil treating the UTI Incontinence continues Appreciate urology consultation for continued incontinence from her stroke Chronic pain is an issue for her back and knee Hgb 8.9, Creatinine 1.28 Checked labs and meds Conferred with RN Reviewed therapy notes Review of Systems General: Fatigue, Malaise Objective Exam Vital Signs Vital Signs Date Time Temp Pulse Resp B/P (MAP) Pulse Ox O2 Delivery O2 Flow Rate FiO2 10/31/19 17:49 36.0 52 18 133/61 (85) 97 Room Air Capillary Refill : Less Than 3 Seconds General Appearance: No Apparent Distress, WD/WN, Chronically ill, Obese HEENT: PERRL/EOMI, Normal ENT Inspection, Pharynx Normal Neck: Full Range of Motion, Normal Inspection, Non Tender, Supple, Carotid Bruit Respiratory: Chest Non Tender, Lungs Clear, Normal Breath Sounds, No Accessory Muscle Use, No Respiratory Distress Cardiovascular: Regular Rate, Rhythm, No Edema, No Gallop, No JVD, No Murmur, Normal Peripheral Pulses Gastrointestinal: Normal Bowel Sounds, No Organomegaly, No Pulsatile Mass, Non Tender, Soft Back: Normal Inspection, No CVA Tenderness, No Vertebral Tenderness Extremity: Normal Capillary Refill, Normal Inspection, Normal Range of Motion, Non Tender, No Calf Tenderness, No Pedal Edema Neurologic/Psychiatric: Alert, Oriented x3, No Motor/Sensory Deficits, Normal Mood/Affect, compliance representative dealer II-XII Norm as Tested, Abnormal Gait, Motor Weakness (right arm and leg 4/5), Other (generalized weakness all extremities) Skin: Normal Color, Warm/Dry Lymphatic: No Adenopathy Results/Procedures Lab Patient resulted labs reviewed. FIM Transfers Therapy Code Descriptions/Definitions Functional [place] Measure: 0=Not Assessed/NA 4=Minimal Assistance 1=Total Assistance 5=Supervision or Setup 2=Maximal Assistance 6=Modified [place] 3=Moderate Assistance 7=Complete IndependenceSCALE: Activities may be completed with or without assistive devices. 8-Mtpphaqefp-rwlyqmx completes the activity by him/herself with no assistance from a helper. 5-Set-up or Clean-up Assistance-helper sets up or cleans up; patient completes activity. [place] assists only prior to or following the activity. 4-Supervision or Touching Assistance-helper provides verbal cues and/or touching/steadying and/or contact guard assistance as patient completes activity. Assistance may be provided throughout the activity or intermittently. 3-Partial/Moderate Assistance-helper does LESS THAN HALF the effort. Page lifts, holds or supports trunk or limbs, but provides less than half the effort. 2-Substantial/Maximal Assistance-helper does MORE THAN HALF the effort. Page l ifts or holds trunk or limbs and provides more than half the effort. 8-Ijpxlgqpj-kcklsq does ALL the effort. Patient does none of the effort to complete the activity. Or, the assistance of 2 or more helpers is required for the patient to complete the activity. If activity was not attempted, code reason: 7-Patient Refused. 9-Not Applicable-not attempted and the patient did not perform the activity before the current illness, exacerbation or injury. 10-Not Attempted due to Environmental Limitations-(lack of equipment, weather restraints, etc.). 88-Not Attempted due to Medical Conditions or Safety Concerns. Roll Left to Right (QC): 6 Sit to Lying (QC): 6 Sit to Stand (QC): 5 Chair/Wbc-wd-Awzwu Xfer(QC): 5 Car Transfer (QC): 3 Gait Training Does the Patient Walk?: Yes Walk 10 feet (QC): 4 Walk 50 ft with 2 Turns(QC): 4 Walk 150 ft (QC): 4 Walking 10ft/uneven surface-QC: 3 Gait Persons Needed: 1 Gait Assistive Device: FWW Wheelchair Training Does the Pt Use a Wheelchair?: No Wheel 50 ft with 2 turns (QC): 9 Wheel 150 ft (QC): 9 Stair Training 1 Step (curb) (QC): 3 4 Steps (QC): 88 12 Steps (QC): 88 Balance Picking up an Object (QC): 88 (unsafe to attempt) ADL-Treatment Eating (QC): 6 (Per pt report) Oral Hygiene (QC): 7 (Pt declined as she was about to eat lunch) Shower/Bathe Self (QC): 3 Upper Body Dressing (QC): 5 Lower Body Dressing (QC): 3 (Mod A) On/Off Footwear (QC): 2 (Pt. Max A with slipper socks as she had difficulty bending over.) Toileting Hygiene (QC): 1 (Pt incontinent of bladder) Toilet Transfer (QC): 4 (CGA using walker) Assessment/Plan Assessment and Plan Assess & Plan/Chief Complaint Assessment: Debility UTI CARY on CKD Stage 3 Dehydration s/p IVF NIDDMII HTN History of Stroke with right sided weakness residual DVT ppx: Lovenox Constipation Plan: Constipation management IRF protocol Home meds UTI Tx 10/29/19: Patient doing pretty well Incontinence continues UTI being treated Urology consulted Chronic pain Will start K pad Monitor hemoglobin 10/30/19: Kpad Detrol for incontinence Decreased motivation noted 10/31/19: Pain management with APAP Kpad to maintain Monitor BP and HR (1) Debility (2) Constipation Status: Acute (3) Urinary tract infection Status: Acute (4) Acute renal failure Status: Acute (5) Hyperglycemia Status: Acute (6) Bradyarrhythmia Status: Acute (7) Carcinoma of left breast Status: Chronic (8) Hypertension Status: Chronic (9) History of colon cancer (10) Hx of colonic polyps (11) Depression Status: Chronic (12) Right sided weakness Status: Acute (13) CVA (cerebral vascular accident) Status: Acute VANESSA LOPEZ DO Oct 31, 2019 11:22
--- NOTE | 2019-10-31 13:00 | NUR ---
STATES WAS TOLD AFTER BREAST SURGERY LAST FALL THAT SHE SHOULD BE ON MAGNESIUM. LEVEL WAS 1.6 ON 10-25-19. DR. LOPEZ NOTIFIED AND MAGNESIUM SUPPLEMENT STARTED.
--- NOTE | 2019-10-31 14:00 | NUR ---
DR. HOLT HERE TO SEE PATIENT. INFORMED OF BRADYCARDIA - 50'S. HE STATES THIS IS AN IMPROVEMENT FROM 40'S SHE WAS IN.
--- NOTE | 2019-10-31 14:49 | Cardiology Progress Note ---
Cardiology SOAP Progress Note Subjective: Denies any dizziness, near-syncope or syncope. Objective: I&O/Vital Signs 10/31/19 10/31/19 06:25 09:00 Temp 36.9 Pulse 55 Resp 20 B/P (MAP) 124/58 (80) Pulse Ox 94 O2 Delivery Room Air Room Air 10/31/19 00:00 Intake Total 1080 ml Balance 1080 ml Weight (Pounds): 221 Weight (Ounces): 3.0 Weight (Calculated Kilograms): [id number] Constitutional: AAO x 3 Respiratory: chest is bilaterally symmetric, lungs clear to auscultation Cardiovascular: regular rate-rhythm, bradycardia, S1 and S2 Gastrointestional: soft, audible bowel sounds Extremities: normal range of motion, non-tender, normal inspection, pedal edema Neurologic/Psychiatric: no motor/sensory deficits, alert, normal mood/affect, oriented x 3 Results/Procedures: Labs Laboratory Tests 10/30/19 16:03: Glucometer 140H 10/30/19 20:26: Glucometer 238H 10/31/19 05:50: Glucometer 181H 10/31/19 10:40: Glucometer 238H A/P: Assessment/Dx: UTI sepsis, resolved. Acute on chronic kidney disease, Anemia, Sinus bradycardia, asymptomatic. Hypertension, History of colon cancer and breast cancer. Plan: UTI sepsis, resolved. Acute on chronic kidney disease, improved significantly. Anemia, likely due to chronic kidney disease. Sinus bradycardia, currently in the 50s. Asymptomatic Atenolol discontinued. Echocardiogram showed normal LV function with mild pulmonary hypertension. Mild diastolic dysfunction. Hypertension, on valsartan. History of colon cancer and breast cancer. Thank you for your consultation. Please call me if you have any questions. Arleen Ha MD, FACP, FACC, FSCAI, FHRS, CCDS Interventional Cardiology Cardiac Electrophysiology Vascular Medicine and Endovascular Interventions Otis HA MD Oct 31, 2019 14:49
--- NOTE | 2019-10-31 16:00 | NUR ---
D-I-L VISITED. PATIENT STATED AFTERWARDS SHE THOUGHT SHE SHOULD GO TO AN ASSISTED LIVING FACILITY UPON DISCHARGE. PATIENT NOT IN FAVOR OF THAT AT THIS TIME.
[2019-10-31] MEDS: ENOXAPARIN 40 MG/0.4 ML (LOVENOX) SYR SC SCH (16:38)
[2019-10-31] MEDS: MAGNESIUM OXIDE (MAG-OX)400 MG TAB PO SCH (17:46)
[2019-10-31 17:49] VITALS: BP 133/61
[2019-10-31] MEDS: TOLTERODINE LA 4 MG (DETROL) CAP PO SCH (20:18)
[2019-11-01 05:06] VITALS: BP 126/61
[2019-11-01] MEDS: inSUlin ASPART (NovoLOG) 1 UNIT/0.01 ML (CHARGE PER UNIT) SC SCH ×4 (05:42→21:21)
[2019-11-01 06:03] LABS: BASOPHILS % (AUTO) 0 % (0-10); EOSINOPHILS # (AUTO) 0.2 10^3/uL (0.0-0.3); EOSINOPHILS % (AUTO) 5 % (0-10); HEMATOCRIT 27 % (35-52); HEMOGLOBIN 9.1 G/DL (11.5-16.0); LYMPHOCYTES # (AUTO) 0.6 X 10^3 (1.0-4.0); LYMPHOCYTES % (AUTO) 16 % (12-44); MEAN CORPUSCULAR HEMOGLOBIN 32 PG (25-34); MEAN CORPUSCULAR HGB CONC 33 G/DL (32-36); MEAN CORPUSCULAR VOLUME 96 FL (80-99); MONOCYTES # (AUTO) 0.5 X 10^3 (0.0-1.0); MONOCYTES % (AUTO) 12 % (0-12); NEUTROPHILS # (AUTO) 2.7 X 10^3 (1.8-7.8); NEUTROPHILS % (AUTO) 68 % (42-75); PLATELET COUNT 215 10^3/uL (130-400); RED CELL DISTRIBUTION WIDTH 12.9 % (10.0-14.5); WHITE BLOOD COUNT 3.9 10^3/uL (4.3-11.0)
[2019-11-01 06:26] LABS: ALBUMIN 3.5 GM/DL (3.2-4.5); BILIRUBIN,TOTAL 0.3 MG/DL (0.1-1.0); CALCIUM 11.5 MG/DL (8.5-10.1); CREATININE SERUM 1.51 MG/DL (0.60-1.30); POTASSIUM 4.7 MMOL/L (3.6-5.0); TOTAL PROTEIN 6.2 GM/DL (6.4-8.2)
[2019-11-01] MEDS: GLIMEPIRIDE 2 MG (AMARYL) TAB PO SCH (06:26)
[2019-11-01] MEDS: LEVETIRACETAM 500 MG (KEPPRA) TAB PO SCH ×2 (09:31→20:18)
[2019-11-01] MEDS: VALSARTAN 160 MG (DIOVAN) TABLET PO SCH (09:33)
[2019-11-01] MEDS: HYDROCHLOROTHIAZIDE 25 MG (HCTZ) TAB PO SCH (09:33)
[2019-11-01] MEDS: SERTRALINE 50 MG (ZOLOFT) TABLET PO SCH (09:34)
[2019-11-01] MEDS: MAGNESIUM OXIDE (MAG-OX)400 MG TAB PO SCH ×2 (09:34→17:43)
[2019-11-01] MEDS: VITAMIN D3 25 MCG (1,000 UNITS) TABLET PO SCH (09:34)
[2019-11-01] MEDS: DOCUSATE SODIUM 100 MG (COLACE) CAP PO SCH ×2 (09:35→20:17)
[2019-11-01] MEDS: PANTOPRAZOLE 40 MG (PROTONIX) TAB PO SCH (09:35)
[2019-11-01] MEDS: ASPIRIN E.C. 81 MG (ECOTRIN) TAB PO SCH (09:35)
[2019-11-01] MEDS: LETROZOLE 2.5 MG (FEMARA) TAB PO SCH (09:46)
[2019-11-01] MEDS: AMOXICILLIN 500 MG (POLYMOX) CAP PO SCH ×3 (09:47→20:18)
[2019-11-01] MEDS: polyethylene glycoL POWDER 17 GM (MIRALAX) PACK PO SCH ×2 (09:47→20:18)
--- NOTE | 2019-11-01 10:56 | Progress Note ---
LÓPEZ SALDIVAR STUDENT 11/01/19 1056: Progress Note Mariaa Mahoney is a 79 yo F in rehab for prior CVA and recent UTI sepsis and CKD. The patient has experienced the following changes (in the opinion of López Saldivar, makayla student): -is walking with FWW -making good progress with PT exercises but sometimes fatigues -working on R hand recovery and adaptations to L hand with OT -Dr. Ha of Cardiology performed an Echo 10/30 showing normal LF function -BMs are regular without diarrhea or constipation -Creatinine 1.5. Will continue to monitor labs and treat as appropriate. López Saldivar, Medical student CHANDRIKA LOPEZ DO 11/01/192033: Supervisory-Addendum Brief Verification & Attestation Participated in pt care: history, MDM, physical Personally performed: exam, history, MDM, supervision of care Care discussed with: Medical Student Procedures: n/a Results interpretation: Verified all documentation Verification and Attestation of Medical Student E/M Service A medical student performed and documented this service in my presence. I reviewed and verified all information documented by the medical student and made modifications to such information, when appropriate. I personally performed the physical exam and medical decision making. Chandrika Lopez, Nov 01, 2019,20:34 LÓPEZ SALDIVAR MED STUDENT Nov 01, 2019 10:56 CHANDRIKA LOPEZ DO Nov 01, 2019 20:34
--- NOTE | 2019-11-01 10:58 | Physical Therapy Daily Note ---
PT Daily Note-Current Subjective Pt. on toilet upon arrival. States she is so grateful to be having a BM. Agrees to Rx. Pain Numeric Pain Scale: 4 Location: No Pain Reported, Left Location Body Site: Knee Pain Description: Ache Comment: left knee discomfort with weight bearing Mental Status Patient Orientation: Person, Place, Time, Situation Transfers SCALE: Activities may be completed with or without assistive devices. 9-Wzvqeoidtj-aaqrqsw completes the activity by him/herself with no assistance from a helper. 5-Set-up or Clean-up Assistance-helper sets up or cleans up; patient completes activity. [place] assists only prior to or following the activity. 4-Supervision or Touching Assistance-helper provides verbal cues and/or touching/steadying and/or contact guard assistance as patient completes activity. Assistance may be provided throughout the activity or intermittently. 3-Partial/Moderate Assistance-helper does LESS THAN HALF the effort. [place] lifts, holds or supports trunk or limbs, but provides less than half the effort. 2-Substantial/Maximal Assistance-helper does MORE THAN HALF the effort. [place] lifts or holds trunk or limbs and provides more than half the effort. 7-Jhopvilfg-xkagpt does ALL the effort. Patient does none of the effort to complete the activity. Or, the assistance of 2 or more helpers is required for the patient to complete the activity. If activity was not attempted, code reason: 7-Patient Refused. 9-Not Applicable-not attempted and the patient did not perform the activity before the current illness, exacerbation or injury. 10-Not Attempted due to Environmental Limitations-(lack of equipment, weather restraints, etc.). 88-Not Attempted due to Medical Conditions or Safety Concerns. Roll Left & Right (QC): 6 Sit to Lying (QC): 6 Lying to Sitting/Side of Bed(Q: 6 Sit to Stand (QC): 6 Chair/Foc-dh-Itqcp Xfer(QC): 6 Toilet Transfer (QC): 5 Weight Bearing Right Lower Extremity: Right Weight Bearing/Tolerated Left Lower Extremity: Left Weight Bearing/Tolerated Gait Training Does the Patient Walk?: Yes Walk 10 feet (QC): 4 Walk 50 ft with 2 Turns(QC): 4 Walk 150 ft (QC): 4 Gait Persons Needed: 1 Gait Assistive Device: FWW slow, has c/o left knee pain asks to rest at certain points during gait. Exercises Supine Ex: Heel Slides, Straight leg raise, Hip abd/add Supine Reps: 8 Seated Therapy Exercises: Ankle pumps, Sit to stand, Long arc quads, Hip flexion, Hip abd/add Seated Reps: 15 Assessment Current Status: Good Progress slow moving today, needs rest breaks, lg BM, knee pain c/o left PT Short Term Goals Short Term Goals Time Frame: Nov 04, 2019 Sit to lyin Lying to sitting on side of be: 4 Sit to stand: 4 Walk 150 feet: 4 PT Solar Photovoltaic Designer Goals Solar Photovoltaic Designer Goals PT Solar Photovoltaic Designer Goals Time Frame: Nov 18, 2019 Roll Left & Right (QC): 6 Sit to Lying (QC): 6 Lying-Sitting on Side/Bed(QC): 6 Sit to Stand (QC): 6 Chair/Wwa-nx-Bjunb Xfer(QC): 6 Toilet Transfer (QC): 6 Car Transfer (QC): 6 Does the Patient Walk: Yes Walk 10 feet (QC): 6 Walk 50ft with 2 Turns (QC): 6 Walk 150 ft (QC): 6 Walking 10ft on Uneven Surface: 6 1 Step (curb) (QC): 5 4 Steps (QC): 5 12 Steps (QC): 9 Picking up an Object (QC): 4 Does the Pt use WC or Scooter?: No Wheel 50 feet with 2 turns (QC: 9 Wheel 150 feet: 9 PT Plan Treatment/Plan Treatment Plan: Continue Plan of Care Treatment Plan: Bed Mobility, Education, Functional Activity Odalys, Functional Strength, Group Therapy, Gait, Safety, Therapeutic Exercise, Transfers Treatment Duration: Nov 18, 2019 Frequency: At least 5 of 7 days/Wk (IRF) Estimated Hrs Per Day: 1.5 hours per day Patient and/or Family Agrees t: Yes Safety Risks/Education Patient Education: Gait Training, Transfer Techniques, Correct Positioning, Disease Process, Safety Issues Teaching Recipient: Patient Teaching Methods: Demonstration, Discussion Response to Teaching: Verbalize Understanding, Return Demonstration, Reinforcement Needed Time/GCodes Time In: 1015 Time Out: 1100 Total Billed Treatment Time: 45 Total Billed Treatment 1,FA15m,GT15m,EX15m ANDREZ KING MEAL COOKER Nov 01, 2019 10:58
--- NOTE | 2019-11-01 11:26 | PM&R Progress Note ---
Subjective HPI/CC On Admission Date Seen by Provider: Nov 01, 2019 Time Seen by Provider: 10:00 Subjective/Events-last exam 11/01/19: Creatinine remains stable at 1.5 Hgb 9.1 Bowels are moving pretty well with laxative Trying to get her hand to work better for her 10/31/19: Patient feels pretty well Kpad helping with back pain Motivation is low chronically BM yesterday Laxatives maintained 10/30/19: Left knee pain persists Daughter at bedside Sugars are ok Decreased motivation noted which appears to be chronic Kpad ordered for back pain Enema given on 10/26 and asked for supp and had BM yesterday PVR 100-200cc and she refused in/out catheter Detrol started 10/29/19: Amoxil treating the UTI Incontinence continues Appreciate urology consultation for continued incontinence from her stroke Chronic pain is an issue for her back and knee Hgb 8.9, Creatinine 1.28 Checked labs and meds Conferred with RN Reviewed therapy notes Review of Systems General: Fatigue, Malaise Neurological: Weakness Objective Exam Vital Signs Vital Signs Date Time Temp Pulse Resp B/P (MAP) Pulse Ox O2 Delivery O2 Flow Rate FiO2 11/01/19 16:32 36.6 62 20 117/55 (75) 96 Room Air Capillary Refill : Less Than 3 Seconds General Appearance: No Apparent Distress, WD/WN, Chronically ill, Obese HEENT: PERRL/EOMI, Normal ENT Inspection, Pharynx Normal Neck: Full Range of Motion, Normal Inspection, Non Tender, Supple, Carotid Bruit Respiratory: Chest Non Tender, Lungs Clear, Normal Breath Sounds, No Accessory Muscle Use, No Respiratory Distress Cardiovascular: Regular Rate, Rhythm, No Edema, No Gallop, No JVD, No Murmur, Normal Peripheral Pulses Gastrointestinal: Normal Bowel Sounds, No Organomegaly, No Pulsatile Mass, Non Tender, Soft Back: Normal Inspection, No CVA Tenderness, No Vertebral Tenderness Extremity: Normal Capillary Refill, Normal Inspection, Normal Range of Motion, Non Tender, No Calf Tenderness, No Pedal Edema Neurologic/Psychiatric: Alert, Oriented x3, No Motor/Sensory Deficits, Normal Mood/Affect, family development extension specialist II-XII Norm as Tested, Abnormal Gait, Motor Weakness (right arm and leg 4/5), Other (generalized weakness all extremities) Skin: Normal Color, Warm/Dry Lymphatic: No Adenopathy Results/Procedures Lab Laboratory Tests 11/01/19 05:31 Patient resulted labs reviewed. FIM Transfers Therapy Code Descriptions/Definitions Functional [place] Measure: 0=Not Assessed/NA 4=Minimal Assistance 1=Total Assistance 5=Supervision or Setup 2=Maximal Assistance 6=Modified [place] 3=Moderate Assistance 7=Complete IndependenceSCALE: Activities may be completed with or without assistive devices. 0-Gczfwoqmmu-szbwayu completes the activity by him/herself with no assistance from a helper. 5-Set-up or Clean-up Assistance-helper sets up or cleans up; patient completes activity. [place] assists only prior to or following the activity. 4-Supervision or Touching Assistance-helper provides verbal cues and/or touching/steadying and/or contact guard assistance as patient completes activity. Assistance may be provided throughout the activity or intermittently. 3-Partial/Moderate Assistance-helper does LESS THAN HALF the effort. [place] lifts, holds or supports trunk or limbs, but provides less than half the effort. 2-Substantial/Maximal Assistance-helper does MORE THAN HALF the effort. [place] lifts or holds trunk or limbs and provides more than half the effort. 1-Abpeuhqlx-gmkcxe does ALL the effort. Patient does none of the effort to complete the activity. Or, the assistance of 2 or more helpers is required for the patient to complete the activity. If activity was not attempted, code reason: 7-Patient Refused. 9-Not Applicable-not attempted and the patient did not perform the activity before the current illness, exacerbation or injury. 10-Not Attempted due to Environmental Limitations-(lack of equipment, weather restraints, etc.). 88-Not Attempted due to Medical Conditions or Safety Concerns. Roll Left to Right (QC): 6 Sit to Lying (QC): 6 Sit to Stand (QC): 6 Chair/Rda-uy-Jynwt Xfer(QC): 6 Car Transfer (QC): 3 Gait Training Does the Patient Walk?: Yes Walk 10 feet (QC): 4 Walk 50 ft with 2 Turns(QC): 4 Walk 150 ft (QC): 4 Walking 10ft/uneven surface-QC: 3 Gait Persons Needed: 1 Gait Assistive Device: FWW Wheelchair Training Does the Pt Use a Wheelchair?: No Wheel 50 ft with 2 turns (QC): 9 Wheel 150 ft (QC): 9 Stair Training 1 Step (curb) (QC): 3 4 Steps (QC): 88 12 Steps (QC): 88 Balance Picking up an Object (QC): 88 (unsafe to attempt) ADL-Treatment Eating (QC): 6 (Per pt report) Oral Hygiene (QC): 7 (Pt declined as she was about to eat lunch) Shower/Bathe Self (QC): 3 Upper Body Dressing (QC): 5 Lower Body Dressing (QC): 3 (Mod A) On/Off Footwear (QC): 2 (Pt. Max A with slipper socks as she had difficulty bending over.) Toileting Hygiene (QC): 1 (Pt incontinent of bladder) Toilet Transfer (QC): 4 (CGA using walker) Assessment/Plan Assessment and Plan Assess & Plan/Chief Complaint Assessment: Debility UTI CARY on CKD Stage 3 Dehydration s/p IVF NIDDMII HTN History of Stroke with right sided weakness residual DVT ppx: Lovenox Constipation Plan: Constipation management IRF protocol Home meds UTI Tx 10/29/19: Patient doing pretty well Incontinence continues UTI being treated Urology consulted Chronic pain Will start K pad Monitor hemoglobin 10/30/19: Kpad Detrol for incontinence Decreased motivation noted 10/31/19: Pain management with APAP Kpad to maintain Monitor BP and HR 11/01/19: Monitor creatinine Continue aggressive bowel regimen Continue aggressive therapy (1) Debility (2) Constipation Status: Acute (3) Urinary tract infection Status: Acute (4) Acute renal failure Status: Acute (5) Hyperglycemia Status: Acute (6) Bradyarrhythmia Status: Acute (7) Carcinoma of left breast Status: Chronic (8) Hypertension Status: Chronic (9) History of colon cancer (10) Hx of colonic polyps (11) Depression Status: Chronic (12) Right sided weakness Status: Acute (13) CVA (cerebral vascular accident) Status: Acute VANESSA LOPEZ DO Nov 01, 2019 11:26
--- NOTE | 2019-11-01 11:49 | Occupational Ther Daily Note ---
OT Current Status-Daily Note Subjective Pt in reclining chair when OT entered room. No c/o pain. Pt agreeable to therapy. Pt seemed more confused this am requiring more cues for sequencing during shower and dressing. Mental Status/Objective Patient Orientation: Person, Place ADL-Treatment Therapy Code Descriptions/Definitions Functional [place] Measure: 0=Not Assessed/NA 4=Minimal Assistance 1=Total Assistance 5=Supervision or Setup 2=Maximal Assistance 6=Modified [place] 3=Moderate Assistance 7=Complete IndependenceSCALE: Activities may be completed with or without assistive devices. 7-Gtyaevohhr-xsigahv completes the activity by him/herself with no assistance from a helper. 5-Set-up or Clean-up Assistance-helper sets up or cleans up; patient completes activity. [place] assists only prior to or following the activity. 4-Supervision or Touching Assistance-helper provides verbal cues and/or touching/steadying and/or contact guard assistance as patient completes activity. Assistance may be provided throughout the activity or intermittently. 3-Partial/Moderate Assistance-helper does LESS THAN HALF the effort. [place] lifts, holds or supports trunk or limbs, but provides less than half the effort. 2-Substantial/Maximal Assistance-helper does MORE THAN HALF the effort. [place] lifts or holds trunk or limbs and provides more than half the effort. 7-Ycoidisvw-lnzbne does ALL the effort. Patient does none of the effort to complete the activity. Or, the assistance of 2 or more helpers is required for the patient to complete the activity. If activity was not attempted, code reason: 7-Patient Refused. 9-Not Applicable-not attempted and the patient did not perform the activity before the current illness, exacerbation or injury. 10-Not Attempted due to Environmental Limitations-(lack of equipment, weather restraints, etc.). 88-Not Attempted due to Medical Conditions or Safety Concerns. Shower/Bathe Self (QC): 3 (Min A) Upper Body Dressing (QC): 3 (Min A) Lower Body Dressing (QC): 2 (Max A) On/Off Footwear: 2 (Max A) Toileting Hygiene (QC): 1 (Pt incontinent of bowel and bladder) Pt in reclining chair, agreeable to shower this tx. She ambulated to shower with SBA and walker. Pt. seated on toilet and completed BM. She attempted to wipe, and stated that she was unable to reach. OT offered toilet tongs and educated pt on use of equipment. Pt. verbalized understanding and declined equipment. Pt transferred to shower with walker and SBA. She was able to doff slipper socks with min A. Pt. required min A to wash feet and cues for sequencing while bathing and drying. She washed the same areas multiple times prior to cueing to wash other areas. When handed shirt, pt. continued to dry her arms with it until cued that it was her shirt. Pt. stated that she needed to use toilet. OT donned her slipper socks and gait belt to transfer to toilet. During transfer, pt incontinent of bowel. Pt. provided with clean socks and brief. She reported that she was very fatigued from showering and that she could not don slipper socks, brief and pants. OT provided Max A as she adjusted socks and pulled pants and brief over hips. Pt. in chair with nursing in the room at the end of session. Nursing notified of slight confusion. All needs met. Education OT Patient Education: Correct positioning, Energy conservation, Modified ADL techniques, Progress toward Goal/Update tx plan, Purpose of tx/functional activities, Reviewed precautions, Rehab process, Safety issues, Transfer techniques Teaching Recipient: Patient Teaching Methods: Demonstration, Discussion Response to Teaching: Verbalize Understanding, Return Demonstration OT Short Term Goals Short Term Goals Time Frame: Nov 04, 2019 Eatin Oral hygiene: 6 Toileting hygiene: 4 Shower/bathe self: 4 Upper body dressin Lower body dressin Putting on/taking off footwear: 4 OT Intermediate Goals Domestic Travel Consultant Goals Time Frame: Nov 11, 2019 Eating (QC): 6 Oral Hygiene (QC): 6 Toileting Hygiene (QC): 6 Shower/Bathe Self (QC): 6 Upper Body Dressing (QC): 6 Lower Body Dressing (QC): 6 On/Off Footwear (QC): 6 Additional Goals: 1-Demonstrate ADL Tasks, 2-Verbalize Understanding, 3-Im proveStrength/Odalys 1=Demonstrate adherence to instructed precautions during ADL tasks. 2=Patient will verbalize/demonstrate understanding of assistive devices/modifications for ADL. 3=Patient will improve strength/tolerance for activity to enable patient to perform ADL's. OT Education/Plan Problem List/Assessment Assessment: Decreased Activ Tolerance, Impaired Cognition, Impaired Funct Balance, Impaired I ADL's, Impaired Self-Care Skills Discharge Recommendations Plan/Recommendations: Continue POC Therapy Discharge Recommendati: Post Acute OT Treatment Plan/Plan of Care Treatment,Training & Education: Yes Patient would benefit from OT for education, treatment and training to promote independence in ADL's, mobility, safety and/or upper extremity function for ADL's. Plan of Care: ADL Retraining, Concurrent Therapy, Functional Mobility, Group Exercise/Act as Ind, UE Funct Exercise/Act Treatment Duration: Nov 11, 2019 Frequency: At least 5 of 7 days/Wk (IRF) Estimated Hrs Per Day: 1.5 hours per day Agreement: Yes Rehab Potential: Good Time/GCodes Start Time: 08:15 Stop Time: 09:15 Total Time Billed (hr/min): 60 Billed Treatment Time 1, ADL 4 (60 minutes) KEESHA AUGUSTIN OT Nov 01, 2019 11:49
--- NOTE | 2019-11-01 11:55 | Progress Note - Urology ---
Progress Note-Urology Progress Notes/Assess & Plan Progress/Assessment & Plan DOING WELL ON DETROL LA. TOLERATED WELL Final Diagnosis URINE INCONTINENCE (IMPROVED) LUZ NUNO MD Nov 01, 2019 11:55
--- NOTE | 2019-11-01 13:10 | Physical Therapy Daily Note ---
PT Daily Note-Current Subjective Patient request toilet use and agrees to PT. Mental Status Patient Orientation: Normal For Age Transfers SCALE: Activities may be completed with or without assistive devices. 8-Jlyotiefgq-inmkxmd completes the activity by him/herself with no assistance from a helper. 5-Set-up or Clean-up Assistance-helper sets up or cleans up; patient completes activity. [place] assists only prior to or following the activity. 4-Supervision or Touching Assistance-helper provides verbal cues and/or touching/steadying and/or contact guard assistance as patient completes activity. Assistance may be provided throughout the activity or intermittently. 3-Partial/Moderate Assistance-helper does LESS THAN HALF the effort. [place] lifts, holds or supports trunk or limbs, but provides less than half the effort. 2-Substantial/Maximal Assistance-helper does MORE THAN HALF the effort. [place] lifts or holds trunk or limbs and provides more than half the effort. 8-Lzhraeviq-sigqwt does ALL the effort. Patient does none of the effort to complete the activity. Or, the assistance of 2 or more helpers is required for the patient to complete the activity. If activity was not attempted, code reason: 7-Patient Refused. 9-Not Applicable-not attempted and the patient did not perform the activity before the current illness, exacerbation or injury. 10-Not Attempted due to Environmental Limitations-(lack of equipment, weather restraints, etc.). 88-Not Attempted due to Medical Conditions or Safety Concerns. Sit to Stand (QC): 5 Toilet Transfer (QC): 5 independent hand hygiene after toilet use Weight Bearing Right Lower Extremity: Right Weight Bearing/Tolerated Left Lower Extremity: Left Weight Bearing/Tolerated Gait Training Does the Patient Walk?: Yes Distance: 275'x 3 Walk 10 feet (QC): 5 Walk 50 ft with 2 Turns(QC): 5 Walk 150 ft (QC): 5 Gait Assistive Device: FWW safe and functional with no deviation Exercises Seated Therapy Exercises: Ankle pumps, Long arc quads, Hip flexion Seated Reps: 15 (3 reps) Assessment Patient tolerated treatment well and returned to room and recliner for lunch. PT to increase activity and allow patient to be up ad orion during day this week. PT Short Term Goals Short Term Goals Time Frame: Nov 04, 2019 Sit to lyin Lying to sitting on side of be: 4 Sit to stand: 4 Walk 150 feet: 4 PT Television Specialist Goals Prison Goals PT Prison Goals Time Frame: Nov 18, 2019 Roll Left & Right (QC): 6 Sit to Lying (QC): 6 Lying-Sitting on Side/Bed(QC): 6 Sit to Stand (QC): 6 Chair/Zek-ir-Ukiit Xfer(QC): 6 Toilet Transfer (QC): 6 Car Transfer (QC): 6 Does the Patient Walk: Yes Walk 10 feet (QC): 6 Walk 50ft with 2 Turns (QC): 6 Walk 150 ft (QC): 6 Walking 10ft on Uneven Surface: 6 1 Step (curb) (QC): 5 4 Steps (QC): 5 12 Steps (QC): 9 Picking up an Object (QC): 4 Does the Pt use WC or Scooter?: No Wheel 50 feet with 2 turns (QC: 9 Wheel 150 feet: 9 PT Plan Treatment/Plan Treatment Plan: Continue Plan of Care Treatment Plan: Bed Mobility, Education, Functional Activity Odalys, Functional Strength, Group Therapy, Gait, Safety, Therapeutic Exercise, Transfers Treatment Duration: Nov 18, 2019 Frequency: At least 5 of 7 days/Wk (IRF) Estimated Hrs Per Day: 1.5 hours per day Patient and/or Family Agrees t: Yes Time/GCodes Time In: 1130 Time Out: 1215 Total Billed Treatment Time: 45 Total Billed Treatment 1 visit FA x 2 30 min EX 15 min PAUL REYES PT Nov 01, 2019 13:10
--- NOTE | 2019-11-01 14:45 | Occupational Ther Daily Note ---
OT Current Status-Daily Note Subjective Pt in bed asleep when OT entered room. Pt agreeable to therapy with no c/o pain once awoken. Mental Status/Objective Patient Orientation: Person, Place ADL-Treatment Therapy Code Descriptions/Definitions Functional [place] Measure: 0=Not Assessed/NA 4=Minimal Assistance 1=Total Assistance 5=Supervision or Setup 2=Maximal Assistance 6=Modified [place] 3=Moderate Assistance 7=Complete IndependenceSCALE: Activities may be completed with or without assistive devices. 1-Ozpntolyay-wpmzkey completes the activity by him/herself with no assistance from a helper. 5-Set-up or Clean-up Assistance-helper sets up or cleans up; patient completes activity. [place] assists only prior to or following the activity. 4-Supervision or Touching Assistance-helper provides verbal cues and/or touching/steadying and/or contact guard assistance as patient completes activity. Assistance may be provided throughout the activity or intermittently. 3-Partial/Moderate Assistance-helper does LESS THAN HALF the effort. [place] lifts, holds or supports trunk or limbs, but provides less than half the effort. 2-Substantial/Maximal Assistance-helper does MORE THAN HALF the effort. [place] lifts or holds trunk or limbs and provides more than half the effort. 0-Tsnpwakms-lyyfuz does ALL the effort. Patient does none of the effort to complete the activity. Or, the assistance of 2 or more helpers is required for the patient to complete the activity. If activity was not attempted, code reason: 7-Patient Refused. 9-Not Applicable-not attempted and the patient did not perform the activity before the current illness, exacerbation or injury. 10-Not Attempted due to Environmental Limitations-(lack of equipment, weather restraints, etc.). 88-Not Attempted due to Medical Conditions or Safety Concerns. Other Treatment Pt ambulated to therapy gym with walker, SBA, and extra time. She required one rest break on way to gym. Once in gym, pt participated in 8 minutes on arm bike at moderate resistance and one rest break to increase B UE strength and enduranc e for functional tasks and ADLs. Pt. ambulated back to room with walker and SBA without rest break. Pt in bed with call light in reach when OT left room. All needs met. Education OT Patient Education: Correct positioning, Modified ADL techniques, Progress toward Goal/Update tx plan, Purpose of tx/functional activities, Reviewed precautions, Rehab process, Safety issues, Transfer techniques Teaching Recipient: Patient Teaching Methods: Demonstration, Discussion Response to Teaching: Verbalize Understanding, Return Demonstration OT Short Term Goals Short Term Goals Time Frame: Nov 04, 2019 Eatin Oral hygiene: 6 Toileting hygiene: 4 Shower/bathe self: 4 Upper body dressin Lower body dressin Putting on/taking off footwear: 4 OT Nursing Home Goals Pier Worker Goals Time Frame: Nov 11, 2019 Eating (QC): 6 Oral Hygiene (QC): 6 Toileting Hygiene (QC): 6 Shower/Bathe Self (QC): 6 Upper Body Dressing (QC): 6 Lower Body Dressing (QC): 6 On/Off Footwear (QC): 6 Additional Goals: 1-Demonstrate ADL Tasks, 2-Verbalize Understanding, 3- ImproveStrength/Odalys 1=Demonstrate adherence to instructed precautions during ADL tasks. 2=Patient will verbalize/demonstrate understanding of assistive devices/modifications for ADL. 3=Patient will improve strength/tolerance for activity to enable patient to perform ADL's. OT Education/Plan Problem List/Assessment Assessment: Decreased Activ Tolerance, Decreased UE Strength, Impaired Funct Balance, Impaired I ADL's, Impaired Self-Care Skills Discharge Recommendations Plan/Recommendations: Continue POC Therapy Discharge Recommendati: Home & Family, Post Acute OT Treatment Plan/Plan of Care Treatment,Training & Education: Yes Patient would benefit from OT for education, treatment and training to promote independence in ADL's, mobility, safety and/or upper extremity function for ADL's. Plan of Care: ADL Retraining, Concurrent Therapy, Functional Mobility, Group Exercise/Act as Ind, UE Funct Exercise/Act Treatment Duration: Nov 11, 2019 Frequency: At least 5 of 7 days/Wk (IRF) Estimated Hrs Per Day: 1.5 hours per day Agreement: Yes Rehab Potential: Good Time/GCodes Start Time: 14:00 Stop Time: 14:30 Total Time Billed (hr/min): 30 Billed Treatment Time 1, FA (15 minutes), EX (15 minutes) KEESHA AUGUSTIN OT Nov 01, 2019 14:45
--- NOTE | 2019-11-01 16:12 | Cardiology Progress Note ---
Cardiology SOAP Progress Note Subjective: No cardiac complaints. Objective: I&O/Vital Signs 11/01/19 05:06 Temp 36.5 Pulse 73 Resp 20 B/P (MAP) 126/61 (82) Pulse Ox 95 O2 Delivery Room Air 11/01/19 00:00 Intake Total 1140 ml Balance 1140 ml Weight (Pounds): 221 Weight (Ounces): 3.0 Weight (Calculated Kilograms): 100.177371 Constitutional: AAO x 3 Respiratory: chest is bilaterally symmetric, lungs clear to auscultation Cardiovascular: regular rate-rhythm, bradycardia, S1 and S2 Gastrointestional: soft, audible bowel sounds Extremities: normal range of motion, non-tender, normal inspection, pedal edema Neurologic/Psychiatric: no motor/sensory deficits, alert, normal mood/affect, oriented x 3 Results/Procedures: Labs Laboratory Tests 10/31/19 16:46: Glucometer 145H 10/31/19 20:06: Glucometer 246H 11/01/19 05:30: Glucometer 190H 11/01/19 05:31: White Blood Count 3.9L, Red Blood Count 2.87L, Hemoglobin 9.1L, Hematocrit 27L, Mean Corpuscular Volume 96, Mean Corpuscular Hemoglobin 32, Mean Corpuscular Hemoglobin Concent 33, Red Cell Distribution Width 12.9, Platelet Count 215, Mean Platelet Volume 10.0, Neutrophils (%) (Auto) 68, Lymphocytes (%) (Auto) 16, Monocytes (%) (Auto) 12, Eosinophils (%) (Auto) 5, Basophils (%) (Auto) 0, Neutrophils # (Auto) 2.7, Lymphocytes # (Auto) 0.6L, Monocytes # (Auto) 0.5, Eosinophils # (Auto) 0.2, Basophils # (Auto) 0.0, Sodium Level 136, Potassium Level 4.7, Chloride Level 105, Carbon Dioxide Level 24, Anion Gap 7, Blood Urea Nitrogen 44H, Creatinine 1.51H, Estimat Glomerular Filtration Rate 33, BUN/Creatinine Ratio 29, Glucose Level 177H, Calcium Level 11.5H, Corrected Calcium 11.9H, Total Bilirubin 0.3, Aspartate Amino Transf (AST/SGOT) 28, Alanine Aminotransferase (ALT/SGPT) 37, Alkaline Phosphatase 53, Total Protein 6.2L, Albumin 3.5 11/01/19 12:07: Glucometer 251H A/P: Assessment/Dx: UTI sepsis, resolved. Acute on chronic kidney disease, Anemia, Sinus bradycardia, asymptomatic. Hypertension, History of colon cancer and breast cancer. Plan: UTI sepsis, resolved. Acute on chronic kidney disease, improved significantly. Anemia, likely due to chronic kidney disease. Sinus bradycardia, currently in the 50s. Asymptomatic Atenolol discontinued. Echocardiogram showed normal LV function with mild pulmonary hypertension. Mild diastolic dysfunction. Hypertension, on valsartan. History of colon cancer and breast cancer. Thank you for your consultation. Please call me if you have any questions. Arleen Ha MD, FACP, FACC, FSCAI, FHRS, CCDS Interventional Cardiology Cardiac Electrophysiology Vascular Medicine and Endovascular Interventions Otis HA MD Nov 01, 2019 16:12
[2019-11-01 16:32] VITALS: BP 117/55
[2019-11-01] MEDS: ENOXAPARIN 40 MG/0.4 ML (LOVENOX) SYR SC SCH (16:46)
[2019-11-01] MEDS: TOLTERODINE LA 4 MG (DETROL) CAP PO SCH (20:18)
[2019-11-02 05:36] VITALS: BP 170/67
[2019-11-02] MEDS: inSUlin ASPART (NovoLOG) 1 UNIT/0.01 ML (CHARGE PER UNIT) SC SCH ×4 (05:47→21:10)
[2019-11-02] MEDS: GLIMEPIRIDE 2 MG (AMARYL) TAB PO SCH (06:19)
[2019-11-02] MEDS: MAGNESIUM OXIDE (MAG-OX)400 MG TAB PO SCH ×2 (08:19→16:52)
[2019-11-02] MEDS: VITAMIN D3 25 MCG (1,000 UNITS) TABLET PO SCH (08:19)
[2019-11-02] MEDS: VALSARTAN 160 MG (DIOVAN) TABLET PO SCH (08:20)
[2019-11-02] MEDS: LEVETIRACETAM 500 MG (KEPPRA) TAB PO SCH ×2 (08:20→21:08)
[2019-11-02] MEDS: HYDROCHLOROTHIAZIDE 25 MG (HCTZ) TAB PO SCH (08:20)
[2019-11-02] MEDS: ASPIRIN E.C. 81 MG (ECOTRIN) TAB PO SCH (08:20)
[2019-11-02] MEDS: PANTOPRAZOLE 40 MG (PROTONIX) TAB PO SCH (08:20)
[2019-11-02] MEDS: AMOXICILLIN 500 MG (POLYMOX) CAP PO SCH ×2 (08:20→13:26)
[2019-11-02] MEDS: SERTRALINE 50 MG (ZOLOFT) TABLET PO SCH (08:21)
[2019-11-02] MEDS: polyethylene glycoL POWDER 17 GM (MIRALAX) PACK PO SCH ×2 (08:22→21:08)
[2019-11-02] MEDS: DOCUSATE SODIUM 100 MG (COLACE) CAP PO SCH ×2 (08:22→21:08)
[2019-11-02] MEDS: LETROZOLE 2.5 MG (FEMARA) TAB PO SCH (08:23)
[2019-11-02] MEDS: ACETAMINOPHEN 325 MG TABLET PO PRN (09:43)
--- NOTE | 2019-11-02 10:19 | Occupational Ther Daily Note ---
OT Current Status-Daily Note Subjective Pt in bathroom when OT entered room. No c/o pain. Pt agreeable to therapy. Mental Status/Objective Patient Orientation: Person, Place ADL-Treatment Therapy Code Descriptions/Definitions Functional [place] Measure: 0=Not Assessed/NA 4=Minimal Assistance 1=Total Assistance 5=Supervision or Setup 2=Maximal Assistance 6=Modified [place] 3=Moderate Assistance 7=Complete IndependenceSCALE: Activities may be completed with or without assistive devices. 0-Yncvscbotc-sneoqem completes the activity by him/herself with no assistance from a helper. 5-Set-up or Clean-up Assistance-helper sets up or cleans up; patient completes activity. [place] assists only prior to or following the activity. 4-Supervision or Touching Assistance-helper provides verbal cues and/or touching/steadying and/or contact guard assistance as patient completes activity. Assistance may be provided throughout the activity or intermittently. 3-Partial/Moderate Assistance-helper does LESS THAN HALF the effort. [place] lifts, holds or supports trunk or limbs, but provides less than half the effort. 2-Substantial/Maximal Assistance-helper does MORE THAN HALF the effort. [place] lifts or holds trunk or limbs and provides more than half the effort. 9-Bycxmdbhr-iqnrxz does ALL the effort. Patient does none of the effort to c omplete the activity. Or, the assistance of 2 or more helpers is required for the patient to complete the activity. If activity was not attempted, code reason: 7-Patient Refused. 9-Not Applicable-not attempted and the patient did not perform the activity before the current illness, exacerbation or injury. 10-Not Attempted due to Environmental Limitations-(lack of equipment, weather restraints, etc.). 88-Not Attempted due to Medical Conditions or Safety Concerns. Oral Hygiene (QC): 4 (SBA while standing at sink) Upper Body Dressing (QC): 5 Toileting Hygiene (QC): 1 Toilet Transfer (QC): 4 Pt in bathroom completing toileting when OT entered room. She completed BM and was dependent for cleansing thea area. OT educated pt on adaptive equipment to facilitate cleansing. Pt refused stating that she would not use equipment. She was able to doff dirty shirt and don clean shirt once handed to her. Pt. completed oral hygiene while standing and leaning on bathroom sink with SBA. She sat in chair in front of sink to wash her face. Pt. ambulated to therapy gym with walker and SBA without a rest break. She tolerated a 13 minute functional activity focusing on B UE ROM, crossing midline, standing balance, and standing tolerance with multiple rest breaks. Pt. stood at kitchen counter and poured herself a cup of coffee with SBA. Pt. ambulated back to room with walker, SBA, and one rest break. She was in the reclining chair with call light at the end of session. All needs met. Education OT Patient Education: Correct positioning, Energy conservation, Modified ADL techniques, Progress toward Goal/Update tx plan, Purpose of tx/functional activities, Reviewed precautions, Rehab process, Safety issues, Transfer techniques, Use of adapted equipment Teaching Recipient: Patient Teaching Methods: Demonstration, Discussion Response to Teaching: Verbalize Understanding, Return Demonstration OT Short Term Goals Short Term Goals Time Frame: Nov 04, 2019 Eatin Oral hygiene: 6 Toileting hygiene: 4 Shower/bathe self: 4 Upper body dressin Lower body dressin Putting on/taking off footwear: 4 OT Emergency Department Physician Goals Snf Goals Time Frame: Nov 11, 2019 Eating (QC): 6 Oral Hygiene (QC): 6 Toileting Hygiene (QC): 6 Shower/Bathe Self (QC): 6 Upper Body Dressing (QC): 6 Lower Body Dressing (QC): 6 On/Off Footwear (QC): 6 Additional Goals: 1-Demonstrate ADL Tasks, 2-Verbalize Understanding, 3- ImproveStrength/Odalys 1=Demonstrate adherence to instructed precautions during ADL tasks. 2=Patient will verbalize/demonstrate understanding of assistive devices/modifications for ADL. 3=Patient will improve strength/tolerance for activity to enable patient to perform ADL's. OT Education/Plan Problem List/Assessment Assessment: Decreased Activ Tolerance, Decreased UE Strength, Impaired Funct Balance, Impaired Self-Care Skills Discharge Recommendations Plan/Recommendations: Continue POC Therapy Discharge Recommendati: Home & Family Treatment Plan/Plan of Care Treatment,Training & Education: Yes Patient would benefit from OT for education, treatment and training to promote independence in ADL's, mobility, safety and/or upper extremity function for ADL's. Plan of Care: ADL Retraining, Concurrent Therapy, Functional Mobility, Group Exercise/Act as Ind, UE Funct Exercise/Act Treatment Duration: Nov 11, 2019 Frequency: At least 5 of 7 days/Wk (IRF) Estimated Hrs Per Day: 1.5 hours per day Agreement: Yes Rehab Potential: Good Time/GCodes Start Time: 08:15 Stop Time: 09:15 Total Time Billed (hr/min): 60 Billed Treatment Time 1, ADL 3 (45 minutes), FA (15 minutes) KEESHA AUGUSTIN OT Nov 02, 2019 10:19
--- NOTE | 2019-11-02 10:34 | PM&R Progress Note ---
Subjective HPI/CC On Admission Date Seen by Provider: Nov 02, 2019 Time Seen by Provider: 09:00 Subjective/Events-last exam 11/02/19: Bowels are pretty regular, even loose History of severe constipation requiring soap-suds enemas No major issues Detrol is really helping her incontinence Wants to go home soon 11/01/19: Creatinine remains stable at 1.5 Hgb 9.1 Bowels are moving pretty well with laxative Trying to get her hand to work better for her 10/31/19: Patient feels pretty well Kpad helping with back pain Motivation is low chronically BM yesterday Laxatives maintained 10/30/19: Left knee pain persists Daughter at bedside Sugars are ok Decreased motivation noted which appears to be chronic Kpad ordered for back pain Enema given on 10/26 and asked for supp and had BM yesterday PVR 100-200cc and she refused in/out catheter Detrol started 10/29/19: Amoxil treating the UTI Incontinence continues Appreciate urology consultation for continued incontinence from her stroke Chronic pain is an issue for her back and knee Hgb 8.9, Creatinine 1.28 Checked labs and meds Conferred with RN Reviewed therapy notes Review of Systems General: Fatigue, Malaise Genitourinary: Incontinence Neurological: Weakness Objective Exam Vital Signs Vital Signs Date Time Temp Pulse Resp B/P (MAP) Pulse Ox O2 Delivery O2 Flow Rate FiO2 11/02/19 16:28 36.0 57 14 117/56 (76) 98 Room Air Capillary Refill : Less Than 3 Seconds General Appearance: No Apparent Distress, WD/WN, Chronically ill, Obese HEENT: PERRL/EOMI, Normal ENT Inspection, Pharynx Normal Neck: Full Range of Motion, Normal Inspection, Non Tender, Supple, Carotid Bruit Respiratory: Chest Non Tender, Lungs Clear, Normal Breath Sounds, No Accessory Muscle Use, No Respiratory Distress Cardiovascular: Regular Rate, Rhythm, No Edema, No Gallop, No JVD, No Murmur, Normal Peripheral Pulses Gastrointestinal: Normal Bowel Sounds, No Organomegaly, No Pulsatile Mass, Non Tender, Soft Back: Normal Inspection, No CVA Tenderness, No Vertebral Tenderness Extremity: Normal Capillary Refill, Normal Inspection, Normal Range of Motion, Non Tender, No Calf Tenderness, No Pedal Edema Neurologic/Psychiatric: Alert, Oriented x3, No Motor/Sensory Deficits, Normal Mood/Affect, psych social worker II-XII Norm as Tested, Abnormal Gait, Motor Weakness (right arm and leg 4/5), Other (generalized weakness all extremities) Skin: Normal Color, Warm/Dry Lymphatic: No Adenopathy Results/Procedures Lab Patient resulted labs reviewed. FIM Transfers Therapy Code Descriptions/Definitions Functional [place] Measure: 0=Not Assessed/NA 4=Minimal Assistance 1=Total Assistance 5=Supervision or Setup 2=Maximal Assistance 6=Modified [place] 3=Moderate Assistance 7=Complete IndependenceSCALE: Activities may be completed with or without assistive devices. 1-Vewrvjhtip-zcuwunj completes the activity by him/herself with no assistance from a helper. 5-Set-up or Clean-up Assistance-helper sets up or cleans up; patient completes activity. [place] assists only prior to or following the activity. 4-Supervision or Touching Assistance-helper provides verbal cues and/or touching/steadying and/or contact guard assistance as patient completes activity. Assistance may be provided throughout the activity or intermittently. 3-Partial/Moderate Assistance-helper does LESS THAN HALF the effort. [place] lifts, holds or supports trunk or limbs, but provides less than half the effort. 2-Substantial/Maximal Assistance-helper does MORE THAN HALF the effort. [place] lifts or holds trunk or limbs and provides more than half the effort. 9-Napfjgmre-yihojh does ALL the effort. Patient does none of the effort to complete the activity. Or, the assistance of 2 or more helpers is required for the patient to complete the activity. If activity was not attempted, code reason: 7-Patient Refused. 9-Not Applicable-not attempted and the patient did not perform the activity before the current illness, exacerbation or injury. 10-Not Attempted due to Environmental Limitations-(lack of equipment, weather restraints, etc.). 88-Not Attempted due to Medical Conditions or Safety Concerns. Roll Left to Right (QC): 6 Sit to Lying (QC): 6 Sit to Stand (QC): 5 Chair/Hri-fy-Lcvuf Xfer(QC): 6 Car Transfer (QC): 3 Gait Training Does the Patient Walk?: Yes Distance: 275'x 3 Walk 10 feet (QC): 5 Walk 50 ft with 2 Turns(QC): 5 Walk 150 ft (QC): 5 Walking 10ft/uneven surface-QC: 3 Gait Persons Needed: 1 Gait Assistive Device: FWW Wheelchair Training Does the Pt Use a Wheelchair?: No Wheel 50 ft with 2 turns (QC): 9 Wheel 150 ft (QC): 9 Stair Training 1 Step (curb) (QC): 3 4 Steps (QC): 88 12 Steps (QC): 88 Balance Picking up an Object (QC): 88 (unsafe to attempt) ADL-Treatment Eating (QC): 6 (Per pt report) Oral Hygiene (QC): 4 (SBA while standing at sink) Shower/Bathe Self (QC): 3 (Min A) Upper Body Dressing (QC): 5 Lower Body Dressing (QC): 2 (Max A) On/Off Footwear (QC): 2 (Max A) Toileting Hygiene (QC): 1 Toilet Transfer (QC): 4 Assessment/Plan Assessment and Plan Assess & Plan/Chief Complaint Assessment: Debility UTI CARY on CKD Stage 3 Dehydration s/p IVF NIDDMII HTN History of Stroke with right sided weakness residual DVT ppx: Lovenox Constipation Plan: Constipation management IRF protocol Home meds UTI Tx 10/29/19: Patient doing pretty well Incontinence continues UTI being treated Urology consulted Chronic pain Will start K pad Monitor hemoglobin 10/30/19: Kpad Detrol for incontinence Decreased motivation noted 10/31/19: Pain management with APAP Kpad to maintain Monitor BP and HR 11/01/19: Monitor creatinine Continue aggressive bowel regimen Continue aggressive therapy 11/02/19: Continue bowel regimen Complete UTI treatment Appreciate urology consultation with the addition of Detrol (1) Debility (2) Constipation Status: Acute (3) Urinary tract infection Status: Acute (4) Acute renal failure Status: Acute (5) Hyperglycemia Status: Acute (6) Bradyarrhythmia Status: Acute (7) Carcinoma of left breast Status: Chronic (8) Hypertension Status: Chronic (9) History of colon cancer (10) Hx of colonic polyps (11) Depression Status: Chronic (12) Right sided weakness Status: Acute (13) CVA (cerebral vascular accident) Status: Acute VANESSA LOPEZ DO Nov 02, 2019 10:34
--- NOTE | 2019-11-02 10:39 | Occupational Ther Daily Note ---
OT Current Status-Daily Note Subjective Pt in reclining chair agreeable to therapy. Pt reported pain in lower back rating it at 7/10. Nursing notified and administered pain medication. Mental Status/Objective Patient Orientation: Person, Place ADL-Treatment Therapy Code Descriptions/Definitions Functional [place] Measure: 0=Not Assessed/NA 4=Minimal Assistance 1=Total Assistance 5=Supervision or Setup 2=Maximal Assistance 6=Modified [place] 3=Moderate Assistance 7=Complete IndependenceSCALE: Activities may be completed with or without assistive devices. 2-Zfpxotgvue-qytaubp completes the activity by him/herself with no assistance from a helper. 5-Set-up or Clean-up Assistance-helper sets up or cleans up; patient completes activity. [place] assists only prior to or following the activity. 4-Supervision or Touching Assistance-helper provides verbal cues and/or touching/steadying and/or contact guard assistance as patient completes activity. Assistance may be provided throughout the activity or intermittently. 3-Partial/Moderate Assistance-helper does LESS THAN HALF the effort. [place] lifts, holds or supports trunk or limbs, but provides less than half the effort. 2-Substantial/Maximal Assistance-helper does MORE THAN HALF the effort. [place] lifts or holds trunk or limbs and provides more than half the effort. 6-Qdzljovxm-yifdzu does ALL the effort. Patient does none of the effort to complete the activity. Or, the assistance of 2 or more helpers is required for the patient to complete the activity. If activity was not attempted, code reason: 7-Patient Refused. 9-Not Applicable-not attempted and the patient did not perform the activity before the current illness, exacerbation or injury. 10-Not Attempted due to Environmental Limitations-(lack of equipment, weather restraints, etc.). 88-Not Attempted due to Medical Conditions or Safety Concerns. Toileting Hygiene (QC): 1 (Pt incontinent of bladder) Toilet Transfer (QC): 4 Pt. reported pain in lower back. OT provided skilled education on proper positioning to relieve pressure on lower back. Pt verbalized understanding. She was transferred to the therapy gym in w/c due to pain. Pt. participated in 15 minutes using arm pulleys to increase B UE ROM, activity tolerance, and endurance for functional activities. She required rest breaks throughout activity but reported that she was having less pain. Pt transported back to room and transferred to toilet with walker and SBA. She completed toileting and ambulated to different chair to relieve pressure. All needs met. Education OT Patient Education: Correct positioning, Disease process, Energy conservation, Modified ADL techniques, Progress toward Goal/Update tx plan, Purpose of tx/functional activities, Reviewed precautions, Rehab process, Transfer techniques Teaching Recipient: Patient Teaching Methods: Demonstration, Discussion Response to Teaching: Verbalize Understanding, Return Demonstration OT Short Term Goals Short Term Goals Time Frame: Nov 04, 2019 Eatin Oral hygiene: 6 Toileting hygiene: 4 Shower/bathe self: 4 Upper body dressin Lower body dressin Putting on/taking off footwear: 4 OT Senior Care Goals Senior Care Goals Time Frame: Nov 11, 2019 Eating (QC): 6 Oral Hygiene (QC): 6 Toileting Hygiene (QC): 6 Shower/Bathe Self (QC): 6 Upper Body Dressing (QC): 6 Lower Body Dressing (QC): 6 On/Off Footwear (QC): 6 Additional Goals: 1-Demonstrate ADL Tasks, 2-Verbalize Understanding, 3-Improve Strength/Odalys 1=Demonstrate adherence to instructed precautions during ADL tasks. 2=Patient will verbalize/demonstrate understanding of assistive devices/modifications for ADL. 3=Patient will improve strength/tolerance for activity to enable patient to pe rform ADL's. OT Education/Plan Problem List/Assessment Assessment: Decreased Activ Tolerance, Decreased UE Strength, Impaired Funct Balance, Impaired Self-Care Skills Discharge Recommendations Plan/Recommendations: Continue POC Therapy Discharge Recommendati: Home & Family Treatment Plan/Plan of Care Treatment,Training & Education: Yes Patient would benefit from OT for education, treatment and training to promote independence in ADL's, mobility, safety and/or upper extremity function for ADL's. Plan of Care: ADL Retraining, Concurrent Therapy, Functional Mobility, Group Exercise/Act as Ind, UE Funct Exercise/Act Treatment Duration: Nov 11, 2019 Frequency: At least 5 of 7 days/Wk (IRF) Estimated Hrs Per Day: 1.5 hours per day Agreement: Yes Rehab Potential: Good Time/GCodes Start Time: 09:45 Stop Time: 10:15 Total Time Billed (hr/min): 30 Billed Treatment Time 1, EX (15 minutes), ADL (15 minutes) KEESHA AUGUSTIN OT Nov 02, 2019 10:38
--- NOTE | 2019-11-02 11:15 | Progress Note - Urology ---
Progress Note-Urology Progress Notes/Assess & Plan Progress/Assessment & Plan DOING FAIR ON DETROL LA. REFUSES STRAIGHT CATH. WE WILL SEE PRN Final Diagnosis INCONTINENCE LUZ NUNO MD Nov 02, 2019 11:15
--- NOTE | 2019-11-02 11:43 | Physical Therapy Daily Note ---
PT Daily Note-Current Subjective Patient agrees to PT. Patient reports she feels ready to go home. Pain Numeric Pain Scale: 0-No Pain Location: No Pain Reported Mental Status Patient Orientation: Normal For Age Transfers SCALE: Activities may be completed with or without assistive devices. 0-Lptqrjheex-juvkuaw completes the activity by him/herself with no assistance from a helper. 5-Set-up or Clean-up Assistance-helper sets up or cleans up; patient completes activity. [place] assists only prior to or following the activity. 4-Supervision or Touching Assistance-helper provides verbal cues and/or touching/steadying and/or contact guard assistance as patient completes activity. Assistance may be provided throughout the activity or intermittently. 3-Partial/Moderate Assistance-helper does LESS THAN HALF the effort. [place] lifts, holds or supports trunk or limbs, but provides less than half the effort. 2-Substantial/Maximal Assistance-helper does MORE THAN HALF the effort. [place] lifts or holds trunk or limbs and provides more than half the effort. 3-Jolcafrok-cindsd does ALL the effort. Patient does none of the effort to complete the activity. Or, the assistance of 2 or more helpers is required for the patient to complete the activity. If activity was not attempted, code reason: 7-Patient Refused. 9-Not Applicable-not attempted and the patient did not perform the activity before the current illness, exacerbation or injury. 10-Not Attempted due to Environmental Limitations-(lack of equipment, weather restraints, etc.). 88-Not Attempted due to Medical Conditions or Safety Concerns. Roll Left & Right (QC): 6 Lying to Sitting/Side of Bed(Q: 6 Sit to Stand (QC): 6 Chair/Gpr-hk-Esube Xfer(QC): 6 Toilet Transfer (QC): 6 Weight Bearing Right Lower Extremity: Right Weight Bearing/Tolerated Left Lower Extremity: Left Weight Bearing/Tolerated Gait Training Does the Patient Walk?: Yes Distance: 300' x 1/200' x 2 Walk 10 feet (QC): 6 Walk 50 ft with 2 Turns(QC): 6 Walk 150 ft (QC): 6 Gait Assistive Device: FWW slow and steady without deviation Stair Training Stair Training: Handrails/: 2 handrails #of Steps: 4 1 Step (curb) (QC): 5 4 Steps (QC): 5 Stairs: Pattern: Step to Exercises Supine Ex: Ankle pumps, Quad Set, Heel Slides, Straight leg raise Supine Reps: 12 Seated Therapy Exercises: Long arc quads Seated Reps: 15 NuStep Minutes: 15 NuStep Workload: 3 Assessment Current Status: Excellent Progress Patient feels much improved and demonstrates good ambulation and balance with all activity. Strength improving. Plan dismissal this week. PT Short Term Goals Short Term Goals Time Frame: Nov 04, 2019 Sit to lyin Lying to sitting on side of be: 4 Sit to stand: 4 Walk 150 feet: 4 PT Snf Goals Shop Foreman Goals PT Snf Goals Time Frame: Nov 18, 2019 Roll Left & Right (QC): 6 Sit to Lying (QC): 6 Lying-Sitting on Side/Bed(QC): 6 Sit to Stand (QC): 6 Chair/Cqq-oh-Lrudd Xfer(QC): 6 Toilet Transfer (QC): 6 Car Transfer (QC): 6 Does the Patient Walk: Yes Walk 10 feet (QC): 6 Walk 50ft with 2 Turns (QC): 6 Walk 150 ft (QC): 6 Walking 10ft on Uneven Surface: 6 1 Step (curb) (QC): 5 4 Steps (QC): 5 12 Steps (QC): 9 Picking up an Object (QC): 4 Does the Pt use WC or Scooter?: No Wheel 50 feet with 2 turns (QC: 9 Wheel 150 feet: 9 PT Plan Treatment/Plan Treatment Plan: Continue Plan of Care Treatment Plan: Bed Mobility, Education, Functional Activity Odalys, Functional Strength, Group Therapy, Gait, Safety, Therapeutic Exercise, Transfers Treatment Duration: Nov 18, 2019 Frequency: At least 5 of 7 days/Wk (IRF) Estimated Hrs Per Day: 1.5 hours per day Patient and/or Family Agrees t: Yes Time/GCodes Time In: 1030 Time Out: 1130 Total Billed Treatment Time: 60 Total Billed Treatment 1 visit FA x 2 25 min EX x 2 35 min PAUL REYES PT Nov 02, 2019 11:43
--- NOTE | 2019-11-02 13:27 | Physical Therapy Daily Note ---
PT Daily Note-Current Subjective Patient agrees to PT. Mental Status Patient Orientation: Normal For Age Transfers SCALE: Activities may be completed with or without assistive devices. 6-Ckkmbauzio-awqdifm completes the activity by him/herself with no assistance from a helper. 5-Set-up or Clean-up Assistance-helper sets up or cleans up; patient completes activity. [place] assists only prior to or following the activity. 4-Supervision or Touching Assistance-helper provides verbal cues and/or touching/steadying and/or contact guard assistance as patient completes activity. Assistance may be provided throughout the activity or intermittently. 3-Partial/Moderate Assistance-helper does LESS THAN HALF the effort. [place] lifts, holds or supports trunk or limbs, but provides less than half the effort. 2-Substantial/Maximal Assistance-helper does MORE THAN HALF the effort. [place] lifts or holds trunk or limbs and provides more than half the effort. 3-Ybkoansoz-otdnpf does ALL the effort. Patient does none of the effort to complete the activity. Or, the assistance of 2 or more helpers is required for the patient to complete the activity. If activity was not attempted, code reason: 7-Patient Refused. 9-Not Applicable-not attempted and the patient did not perform the activity befo re the current illness, exacerbation or injury. 10-Not Attempted due to Environmental Limitations-(lack of equipment, weather re straints, etc.). 88-Not Attempted due to Medical Conditions or Safety Concerns. Sit to Stand (QC): 6 Weight Bearing Right Lower Extremity: Right Weight Bearing/Tolerated Left Lower Extremity: Left Weight Bearing/Tolerated Gait Training Does the Patient Walk?: Yes Distance: 300' x 2 Walk 10 feet (QC): 6 Walk 50 ft with 2 Turns(QC): 6 Walk 150 ft (QC): 6 Gait Assistive Device: FWW slow, steady, functional gait sequence Exercises Seated Therapy Exercises: Ankle pumps, Long arc quads, Hip flexion Seated Reps: 12 Assessment Current Status: Excellent Progress PT Short Term Goals Short Term Goals Time Frame: Nov 04, 2019 Sit to lyin Lying to sitting on side of be: 4 Sit to stand: 4 Walk 150 feet: 4 PT Alf Goals Alf Goals 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 Time Frame: Nov 18, 2019 Roll Left & Right (QC): 6 Sit to Lying (QC): 6 Lying-Sitting on Side/Bed(QC): 6 Sit to Stand (QC): 6 Chair/Ncu-ik-Gkjal Xfer(QC): 6 Toilet Transfer (QC): 6 Car Transfer (QC): 6 Does the Patient Walk: Yes Walk 10 feet (QC): 6 Walk 50ft with 2 Turns (QC): 6 Walk 150 ft (QC): 6 Walking 10ft on Uneven Surface: 6 1 Step (curb) (QC): 5 4 Steps (QC): 5 12 Steps (QC): 9 Picking up an Object (QC): 4 Does the Pt use WC or Scooter?: No Wheel 50 feet with 2 turns (QC: 9 Wheel 150 feet: 9 PT Plan Treatment/Plan Treatment Plan: Continue Plan of Care Treatment Plan: Bed Mobility, Education, Functional Activity Odalys, Functional Strength, Group Therapy, Gait, Safety, Therapeutic Exercise, Transfers Treatment Duration: Nov 18, 2019 Frequency: At least 5 of 7 days/Wk (IRF) Estimated Hrs Per Day: 1.5 hours per day Patient and/or Family Agrees t: Yes Time/GCodes Time In: 1250 Time Out: 1320 Total Billed Treatment Time: 30 Total Billed Treatment 1 visit FA x 2 30 min PAUL REYES PT Nov 02, 2019 13:27
--- NOTE | 2019-11-02 14:54 | Cardiology Progress Note ---
Cardiology SOAP Progress Note Subjective: No cardiac complaints. Objective: I&O/Vital Signs 11/02/19 11/02/19 05:36 09:20 Temp 36.4 Pulse 58 Resp 20 B/P (MAP) 170/67 (101) Pulse Ox 98 O2 Delivery Room Air Room Air 11/02/19 00:00 Intake Total 1250 ml Balance 1250 ml Weight (Pounds): 221 Weight (Ounces): 3.0 Weight (Calculated Kilograms): 100.998312 Constitutional: AAO x 3 Respiratory: chest is bilaterally symmetric, lungs clear to auscultation Cardiovascular: regular rate-rhythm, bradycardia, S1 and S2 Gastrointestional: soft, audible bowel sounds Extremities: normal range of motion, non-tender, normal inspection, pedal edema Neurologic/Psychiatric: no motor/sensory deficits, alert, normal mood/affect, oriented x 3 Results/Procedures: Labs Laboratory Tests 11/01/19 16:30: Glucometer 145H 11/01/19 21:20: Glucometer 233H 11/02/19 05:25: Glucometer 183H 11/02/19 10:51: Glucometer 222H A/P: Assessment/Dx: UTI sepsis, resolved. Acute on chronic kidney disease, Anemia, Sinus bradycardia, asymptomatic. Hypertension, History of colon cancer and breast cancer. Plan: UTI sepsis, resolved. Acute on chronic kidney disease, improved significantly. Anemia, likely due to chronic kidney disease. Sinus bradycardia, currently in the 50s. Asymptomatic Atenolol discontinued. Echocardiogram showed normal LV function with mild pulmonary hypertension. Mild diastolic dysfunction. Hypertension, on valsartan. History of colon cancer and breast cancer. Thank you for your consultation. Please call me if you have any questions. Arleen Ha MD, FACP, FACC, FSCAI, FHRS, CCDS Interventional Cardiology Cardiac Electrophysiology Vascular Medicine and Endovascular Interventions Otis HA MD Nov 02, 2019 14:54
[2019-11-02 16:28] VITALS: BP 117/56
[2019-11-02] MEDS: ENOXAPARIN 40 MG/0.4 ML (LOVENOX) SYR SC SCH (16:52)
[2019-11-02] MEDS: TOLTERODINE LA 4 MG (DETROL) CAP PO SCH (21:07)
--- NOTE | 2019-11-04 08:22 | PM&R Progress Note ---
Subjective HPI/CC On Admission Date Seen by Provider: Nov 04, 2019 Time Seen by Provider: 08:45 Subjective/Events-last exam 11/04/19: Had some diarrhea yesterday holding laxatives Detrol is helping with the incontinence Overall feels like she is doing much better 11/03/19: Moving pretty well Bowels are moving Incontinence is improved on Detrol Taking Tylenol for knee pain K pad helps with the back pain 11/02/19: Bowels are pretty regular, even loose History of severe constipation requiring soap-suds enemas No major issues Detrol is really helping her incontinence Wants to go home soon 11/01/19: Creatinine remains stable at 1.5 Hgb 9.1 Bowels are moving pretty well with laxative Trying to get her hand to work better for her 10/31/19: Patient feels pretty well Kpad helping with back pain Motivation is low chronically BM yesterday Laxatives maintained 10/30/19: Left knee pain persists Daughter at bedside Sugars are ok Decreased motivation noted which appears to be chronic Kpad ordered for back pain Enema given on 10/26 and asked for supp and had BM yesterday PVR 100-200cc and she refused in/out catheter Detrol started 10/29/19: Amoxil treating the UTI Incontinence continues Appreciate urology consultation for continued incontinence from her stroke Chronic pain is an issue for her back and knee Hgb 8.9, Creatinine 1.28 Checked labs and meds Conferred with RN Reviewed therapy notes Review of Systems General: Fatigue, Malaise Neurological: Weakness Objective Exam Vital Signs Vital Signs Date Time Temp Pulse Resp B/P (MAP) Pulse Ox O2 Delivery O2 Flow Rate FiO2 11/04/19 20:08 Room Air 11/04/19 16:15 36.7 66 16 152/65 (94) 99 Capillary Refill : Less Than 3 Seconds General Appearance: No Apparent Distress, WD/WN, Chronically ill, Obese HEENT: PERRL/EOMI, Normal ENT Inspection, Pharynx Normal Neck: Full Range of Motion, Normal Inspection, Non Tender, Supple, Carotid Bruit Respiratory: Chest Non Tender, Lungs Clear, Normal Breath Sounds, No Accessory Muscle Use, No Respiratory Distress Cardiovascular: Regular Rate, Rhythm, No Edema, No Gallop, No JVD, No Murmur, Normal Peripheral Pulses Gastrointestinal: Normal Bowel Sounds, No Organomegaly, No Pulsatile Mass, Non Tender, Soft Back: Normal Inspection, No CVA Tenderness, No Vertebral Tenderness Extremity: Normal Capillary Refill, Normal Inspection, Normal Range of Motion, Non Tender, No Calf Tenderness, No Pedal Edema Neurologic/Psychiatric: Alert, Oriented x3, No Motor/Sensory Deficits, Normal Mood/Affect, 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 FIM Transfers Therapy Code Descriptions/Definitions Functional [place] Measure: 0=Not Assessed/NA 4=Minimal Assistance 1=Total Assistance 5=Supervision or Setup 2=Maximal Assistance 6=Modified [place] 3=Moderate Assistance 7=Complete IndependenceSCALE: Activities may be completed with or without assistive devices. 1-Qotigtuikg-nguqwde completes the activity by him/herself with no assistance from a helper. 5-Set-up or Clean-up Assistance-helper sets up or cleans up; patient completes activity. [place] assists only prior to or following the activity. 4-Supervision or Touching Assistance-helper provides verbal cues and/or touching/steadying and/or contact guard assistance as patient completes activity. Assistance may be provided throughout the activity or intermittently. 3-Partial/Moderate Assistance-helper does LESS THAN HALF the effort. [place] lifts, holds or supports trunk or limbs, but provides less than half the effort. 2-Substantial/Maximal Assistance-helper does MORE THAN HALF the effort. [place] lifts or holds trunk or limbs and provides more than half the effort. 4-Epcebacpt-sctvoq does ALL the effort. Patient does none of the effort to complete the activity. Or, the assistance of 2 or more helpers is required for the patient to complete the activity. If activity was not attempted, code reason: 7-Patient Refused. 9-Not Applicable-not attempted and the patient did not perform the activity before the current illness, exacerbation or injury. 10-Not Attempted due to Environmental Limitations-(lack of equipment, weather restraints, etc.). 88-Not Attempted due to Medical Conditions or Safety Concerns. Roll Left to Right (QC): 6 Sit to Lying (QC): 6 Sit to Stand (QC): 6 Chair/Lcv-mn-Gzobp Xfer(QC): 6 Car Transfer (QC): 3 Gait Training Does the Patient Walk?: Yes Distance: 300' x 2 Walk 10 feet (QC): 6 Walk 50 ft with 2 Turns(QC): 6 Walk 150 ft (QC): 6 Walking 10ft/uneven surface-QC: 3 Gait Persons Needed: 1 Gait Assistive Device: FWW Wheelchair Training Does the Pt Use a Wheelchair?: No Wheel 50 ft with 2 turns (QC): 9 Wheel 150 ft (QC): 9 Stair Training Stair Training: Handrails/: 2 handrails #of Steps: 4 1 Step (curb) (QC): 5 4 Steps (QC): 5 12 Steps (QC): 88 Stairs: Pattern: Step to Balance Picking up an Object (QC): 88 (unsafe to attempt) ADL-Treatment Eating (QC): 6 (Per pt report) Oral Hygiene (QC): 4 (SBA while standing at sink) Shower/Bathe Self (QC): 3 (Min A) Upper Body Dressing (QC): 5 Lower Body Dressing (QC): 2 (Max A) On/Off Footwear (QC): 2 (Max A) Toileting Hygiene (QC): 1 (Pt incontinent of bladder) Toilet Transfer (QC): 4 Assessment/Plan Assessment and Plan Assess & Plan/Chief Complaint Assessment: Debility UTI CARY on CKD Stage 3 Dehydration s/p IVF NIDDMII HTN History of Stroke with right sided weakness residual DVT ppx: Lovenox Constipation Plan: Constipation management IRF protocol Home meds UTI Tx 10/29/19: Patient doing pretty well Incontinence continues UTI being treated Urology consulted Chronic pain Will start K pad Monitor hemoglobin 10/30/19: Kpad Detrol for incontinence Decreased motivation noted 10/31/19: Pain management with APAP Kpad to maintain Monitor BP and HR 11/01/19: Monitor creatinine Continue aggressive bowel regimen Continue aggressive therapy 11/02/19: Continue bowel regimen Complete UTI treatment Appreciate urology consultation with the addition of Detrol 11/03/19: Continue aggressive therapy Incontinence management Fall risk 11/04/19: Improved status Detrol doing well Fall risk prevention (1) Debility (2) Constipation Status: Acute (3) Urinary tract infection Status: Acute (4) Acute renal failure Status: Acute (5) Hyperglycemia Status: Acute (6) Bradyarrhythmia Status: Acute (7) Carcinoma of left breast Status: Chronic (8) Hypertension Status: Chronic (9) History of colon cancer (10) Hx of colonic polyps (11) Depression Status: Chronic (12) Right sided weakness Status: Acute (13) CVA (cerebral vascular accident) Status: Acute VANESSA LOPEZ DO Nov 04, 2019 08:22
--- NOTE | 2019-11-04 08:22 | PM&R Progress Note ---
Subjective HPI/CC On Admission Date Seen by Provider: Nov 03, 2019 Time Seen by Provider: 08:30 Subjective/Events-last exam 11/03/19: Moving pretty well Bowels are moving Incontinence is improved on Detrol Taking Tylenol for knee pain K pad helps with the back pain 11/02/19: Bowels are pretty regular, even loose History of severe constipation requiring soap-suds enemas No major issues Detrol is really helping her incontinence Wants to go home soon 11/01/19: Creatinine remains stable at 1.5 Hgb 9.1 Bowels are moving pretty well with laxative Trying to get her hand to work better for her 10/31/19: Patient feels pretty well Kpad helping with back pain Motivation is low chronically BM yesterday Laxatives maintained 10/30/19: Left knee pain persists Daughter at bedside Sugars are ok Decreased motivation noted which appears to be chronic Kpad ordered for back pain Enema given on 10/26 and asked for supp and had BM yesterday PVR 100-200cc and she refused in/out catheter Detrol started 10/29/19: Amoxil treating the UTI Incontinence continues Appreciate urology consultation for continued incontinence from her stroke Chronic pain is an issue for her back and knee Hgb 8.9, Creatinine 1.28 Checked labs and meds Conferred with RN Reviewed therapy notes Review of Systems General: Fatigue, Malaise Genitourinary: Incontinence Neurological: Weakness Objective Exam Vital Signs Vital Signs Date Time Temp Pulse Resp B/P (MAP) Pulse Ox O2 Delivery O2 Flow Rate FiO2 11/02/19 21:10 Room Air 11/02/19 16:28 36.0 57 14 117/56 (76) 98 Capillary Refill : Less Than 3 Seconds General Appearance: No Apparent Distress, WD/WN, Chronically ill, Obese HEENT: PERRL/EOMI, Normal ENT Inspection, Pharynx Normal Neck: Full Range of Motion, Normal Inspection, Non Tender, Supple, Carotid Bruit Respiratory: Chest Non Tender, Lungs Clear, Normal Breath Sounds, No Accessory Muscle Use, No Respiratory Distress Cardiovascular: Regular Rate, Rhythm, No Edema, No Gallop, No JVD, No Murmur, Normal Peripheral Pulses Gastrointestinal: Normal Bowel Sounds, No Organomegaly, No Pulsatile Mass, Non Tender, Soft Back: Normal Inspection, No CVA Tenderness, No Vertebral Tenderness Extremity: Normal Capillary Refill, Normal Inspection, Normal Range of Motion, Non Tender, No Calf Tenderness, No Pedal Edema Neurologic/Psychiatric: Alert, Oriented x3, No Motor/Sensory Deficits, Normal 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 FIM Transfers Therapy Code Descriptions/Definitions Functional [place] Measure: 0=Not Assessed/NA 4=Minimal Assistance 1=Total Assistance 5=Supervision or Setup 2=Maximal Assistance 6=Modified [place] 3=Moderate Assistance 7=Complete IndependenceSCALE: Activities may be completed with or without assistive devices. 3-Ngtmmkqxal-nyosxvk completes the activity by him/herself with no assistance from a helper. 5-Set-up or Clean-up Assistance-helper sets up or cleans up; patient completes activity. [place] assists only prior to or following the activity. 4-Supervision or Touching Assistance-helper provides verbal cues and/or touching/steadying and/or contact guard assistance as patient completes activity. Assistance may be provided throughout the activity or intermittently. 3-Partial/Moderate Assistance-helper does LESS THAN HALF the effort. [place] lifts, holds or supports trunk or limbs, but provides less than half the effort. 2-Substantial/Maximal Assistance-helper does MORE THAN HALF the effort. [place] lifts or holds trunk or limbs and provides more than half the effort. 7-Wbqivgueq-loktua does ALL the effort. Patient does none of the effort to complete the activity. Or, the assistance of 2 or more helpers is required for the patient to complete the activity. If activity was not attempted, code reason: 7-Patient Refused. 9-Not Applicable-not attempted and the patient did not perform the activity before the current illness, exacerbation or injury. 10-Not Attempted due to Environmental Limitations-(lack of equipment, weather restraints, etc.). 88-Not Attempted due to Medical Conditions or Safety Concerns. Roll Left to Right (QC): 6 Sit to Lying (QC): 6 Sit to Stand (QC): 6 Chair/Zpz-rn-Mkkco Xfer(QC): 6 Car Transfer (QC): 3 Gait Training Does the Patient Walk?: Yes Distance: 300' x 2 Walk 10 feet (QC): 6 Walk 50 ft with 2 Turns(QC): 6 Walk 150 ft (QC): 6 Walking 10ft/uneven surface-QC: 3 Gait Persons Needed: 1 Gait Assistive Device: FWW Wheelchair Training Does the Pt Use a Wheelchair?: No Wheel 50 ft with 2 turns (QC): 9 Wheel 150 ft (QC): 9 Stair Training Stair Training: Handrails/: 2 handrails #of Steps: 4 1 Step (curb) (QC): 5 4 Steps (QC): 5 12 Steps (QC): 88 Stairs: Pattern: Step to Balance Picking up an Object (QC): 88 (unsafe to attempt) ADL-Treatment Eating (QC): 6 (Per pt report) Oral Hygiene (QC): 4 (SBA while standing at sink) Shower/Bathe Self (QC): 3 (Min A) Upper Body Dressing (QC): 5 Lower Body Dressing (QC): 2 (Max A) On/Off Footwear (QC): 2 (Max A) Toileting Hygiene (QC): 1 (Pt incontinent of bladder) Toilet Transfer (QC): 4 Assessment/Plan Assessment and Plan Assess & Plan/Chief Complaint Assessment: Debility UTI CARY on CKD Stage 3 Dehydration s/p IVF NIDDMII HTN History of Stroke with right sided weakness residual DVT ppx: Lovenox Constipation Plan: Constipation management IRF protocol Home meds UTI Tx 10/29/19: Patient doing pretty well Incontinence continues UTI being treated Urology consulted Chronic pain Will start K pad Monitor hemoglobin 10/30/19: Kpad Detrol for incontinence Decreased motivation noted 10/31/19: Pain management with APAP Kpad to maintain Monitor BP and HR 11/01/19: Monitor creatinine Continue aggressive bowel regimen Continue aggressive therapy 11/02/19: Continue bowel regimen Complete UTI treatment Appreciate urology consultation with the addition of Detrol 11/03/19: Continue aggressive therapy Incontinence management Fall risk (1) Debility (2) Constipation Status: Acute (3) Urinary tract infection Status: Acute (4) Acute renal failure Status: Acute (5) Hyperglycemia Status: Acute (6) Bradyarrhythmia Status: Acute (7) Carcinoma of left breast Status: Chronic (8) Hypertension Status: Chronic (9) History of colon cancer (10) Hx of colonic polyps (11) Depression Status: Chronic (12) Right sided weakness Status: Acute (13) CVA (cerebral vascular accident) Status: Acute VANESSA LOPEZ DO Nov 04, 2019 08:22
--- NOTE | 2019-11-04 09:21 | Occupational Ther Daily Note ---
OT Current Status-Daily Note Subjective Pt in reclining chair when OT entered room. No c/o pain. Pt agreeable to therapy. Mental Status/Objective Patient Orientation: Person, Place ADL-Treatment Therapy Code Descriptions/Definitions Functional [place] Measure: 0=Not Assessed/NA 4=Minimal Assistance 1=Total Assistance 5=Supervision or Setup 2=Maximal Assistance 6=Modified [place] 3=Moderate Assistance 7=Complete IndependenceSCALE: Activities may be completed with or without assistive devices. 7-Zvhgoxoolf-xtafzlj completes the activity by him/herself with no assistance from a helper. 5-Set-up or Clean-up Assistance-helper sets up or cleans up; patient completes activity. [place] assists only prior to or following the activity. 4-Supervision or Touching Assistance-helper provides verbal cues and/or touching/steadying and/or contact guard assistance as patient completes activity. Assistance may be provided throughout the activity or intermittently. 3-Partial/Moderate Assistance-helper does LESS THAN HALF the effort. [place] lifts, holds or supports trunk or limbs, but provides less than half the effort. 2-Substantial/Maximal Assistance-helper does MORE THAN HALF the effort. [place] lifts or holds trunk or limbs and provides more than half the effort. 7-Yyphwtxxr-qrgtor does ALL the effort. Patient does none of the effort to complete the activity. Or, the assistance of 2 or more helpers is required for the patient to complete the activity. If activity was not attempted, code reason: 7-Patient Refused. 9-Not Applicable-not attempted and the patient did not perform the activity before the current illness, exacerbation or injury. 10-Not Attempted due to Environmental Limitations-(lack of equipment, weather restraints, etc.). 88-Not Attempted due to Medical Conditions or Safety Concerns. Oral Hygiene (QC): 6 Upper Body Dressing (QC): 6 Lower Body Dressing (QC): 6 On/Off Footwear: 5 (Pt. able to don slipper socks independently, but required assistance with JACQUELIN hose.) Toileting Hygiene (QC): 6 Toilet Transfer (QC): 6 Pt in reclining chair. She ambulated to closet with walker and selected clothing independently. Pt able to doff/don clean shirt and pants independently. She ambulated to the bathroom with walker and completed toilet hygiene independently. Pt stood at bathroom counter and brushed her teeth independently. Nursing brought pt JACQUELIN hose. She attempted to don JACQUELIN hose, but required min A for pull JACQUELNI hose over toes and to heel. She pulled JACQUELIN hose up the rest of the way and was able to don slipper socks independently while sitting EOB. Noted she required extra time to complete tasks and rest breaks between each task. Pt. laying in bed with call light at the end of tx session. All needs met. Education OT Patient Education: Correct positioning, Energy conservation, Modified ADL techniques, Progress toward Goal/Update tx plan, Purpose of tx/functional activities, Reviewed precautions, Rehab process, Safety issues, Transfer techniques Teaching Recipient: Patient Teaching Methods: Demonstration, Discussion Response to Teaching: Verbalize Understanding, Return Demonstration OT Short Term Goals Short Term Goals Time Frame: Nov 04, 2019 Eatin Oral hygiene: 6 Toileting hygiene: 4 Shower/bathe self: 4 Upper body dressin Lower body dressin Putting on/taking off footwear: 4 OT [employer] Goals Halfway Goals Time Frame: Nov 11, 2019 Eating (QC): 6 Oral Hygiene (QC): 6 Toileting Hygiene (QC): 6 Shower/Bathe Self (QC): 6 Upper Body Dressing (QC): 6 Lower Body Dressing (QC): 6 On/Off Footwear (QC): 6 Additional Goals: 1-Demonstrate ADL Tasks, 2-Verbalize Understanding, 3- ImproveStrength/Odalys 1=Demonstrate adherence to instructed precautions during ADL tasks. 2=Patient will verbalize/demonstrate understanding of assistive devices/modifications for ADL. 3=Patient will improve strength/tolerance for activity to enable patient to perform ADL's. OT Education/Plan Problem List/Assessment Assessment: Decreased Activ Tolerance, Decreased UE Strength Discharge Recommendations Plan/Recommendations: Continue POC Therapy Discharge Recommendati: Home & Family Treatment Plan/Plan of Care Treatment,Training & Education: Yes Patient would benefit from OT for education, treatment and training to promote independence in ADL's, mobility, safety and/or upper extremity function for ADL's. Plan of Care: ADL Retraining, Concurrent Therapy, Functional Mobility, Group Exercise/Act as Ind, UE Funct Exercise/Act Treatment Duration: Nov 11, 2019 Frequency: At least 5 of 7 days/Wk (IRF) Estimated Hrs Per Day: 1.5 hours per day Agreement: Yes Rehab Potential: Good Time/GCodes Start Time: 08:15 Stop Time: 09:15 Total Time Billed (hr/min): 60 Billed Treatment Time 1, ADL 4 (60 minutes) KEESHA AUGUSTIN OT Nov 04, 2019 09:21
[2019-11-04] MEDS: MAGNESIUM OXIDE (MAG-OX)400 MG TAB PO SCH ×2 (10:51→17:03)
[2019-11-04] MEDS: DOCUSATE SODIUM 100 MG (COLACE) CAP PO SCH ×2 (10:52→20:03)
[2019-11-04] MEDS: HYDROCHLOROTHIAZIDE 25 MG (HCTZ) TAB PO SCH (10:52)
[2019-11-04] MEDS: ASPIRIN E.C. 81 MG (ECOTRIN) TAB PO SCH (10:52)
[2019-11-04] MEDS: LEVETIRACETAM 500 MG (KEPPRA) TAB PO SCH ×2 (10:53→20:02)
[2019-11-04] MEDS: VALSARTAN 160 MG (DIOVAN) TABLET PO SCH (10:54)
[2019-11-04] MEDS: PANTOPRAZOLE 40 MG (PROTONIX) TAB PO SCH (10:54)
[2019-11-04] MEDS: VITAMIN D3 25 MCG (1,000 UNITS) TABLET PO SCH (10:55)
[2019-11-04] MEDS: SERTRALINE 50 MG (ZOLOFT) TABLET PO SCH (10:56)
[2019-11-04] MEDS: LETROZOLE 2.5 MG (FEMARA) TAB PO SCH (10:57)
[2019-11-04] MEDS: inSUlin ASPART (NovoLOG) 1 UNIT/0.01 ML (CHARGE PER UNIT) SC SCH ×3 (11:08→20:33)
[2019-11-04] MEDS: polyethylene glycoL POWDER 17 GM (MIRALAX) PACK PO SCH ×2 (11:08→19:14)
--- NOTE | 2019-11-04 12:00 | Physical Therapy Daily Note ---
PT Daily Note-Current Subjective Patient is very agreeable to go outside to [facility] for part of therapy session. Pain Numeric Pain Scale: 0-No Pain Location: No Pain Reported Mental Status Patient Orientation: Normal For Age Transfers SCALE: Activities may be completed with or without assistive devices. 1-Amxzxeimed-ebxhuug completes the activity by him/herself with no assistance from a helper. 5-Set-up or Clean-up Assistance-helper sets up or cleans up; patient completes activity. [place] assists only prior to or following the activity. 4-Supervision or Touching Assistance-helper provides verbal cues and/or touching/steadying and/or contact guard assistance as patient completes activity. Assistance may be provided throughout the activity or intermittently. 3-Partial/Moderate Assistance-helper does LESS THAN HALF the effort. [place] lifts, holds or supports trunk or limbs, but provides less than half the effort. 2-Substantial/Maximal Assistance-helper does MORE THAN HALF the effort. [place] lifts or holds trunk or limbs and provides more than half the effort. 8-Zdfyccsoc-trosux does ALL the effort. Patient does none of the effort to complete the activity. Or, the assistance of 2 or more helpers is required for the patient to complete the activity. If activity was not attempted, code reason: 7-Patient Refused. 9-Not Applicable-not attempted and the patient did not perform the activity before the current illness, exacerbation or injury. 10-Not Attempted due to Environmental Limitations-(lack of equipment, weather restraints, etc.). 88-Not Attempted due to Medical Conditions or Safety Concerns. Sit to Lying (QC): 5 Lying to Sitting/Side of Bed(Q: 5 Sit to Stand (QC): 5 Chair/Rmr-dp-Gwrfu Xfer(QC): 5 Toilet Transfer (QC): 5 Weight Bearing Right Lower Extremity: Right Weight Bearing/Tolerated Left Lower Extremity: Left Weight Bearing/Tolerated Gait Training Does the Patient Walk?: Yes Distance: 500' x 1; 300' x 3; 250' x 3 Walk 10 feet (QC): 5 Walk 50 ft with 2 Turns(QC): 5 Walk 150 ft (QC): 5 Walking 10ft/uneven surface-QC: 5 Gait Assistive Device: FWW VC's for body placement in FWW and to utilize core musculature to stand erect vs using UE's for upright/shuffle gait sequence Exercises Supine Ex: Ankle pumps, Quad Set, Glut sets, Heel Slides, Straight leg raise Supine Reps: 12 Seated Therapy Exercises: Ankle pumps, Long arc quads, Hip flexion, Glut set Seated Reps: 15 (2 sets) Assessment Patient requires recovery periods due to fatigue, however, tolerated treatment well. Patient is motivated with progress and states she wants to go home soon. PT to increase activity as tolerated by patient. PT Short Term Goals Short Term Goals Time Frame: Nov 04, 2019 Sit to lyin Lying to sitting on side of be: 4 Sit to stand: 4 Walk 150 feet: 4 PT Customer Development Representative Goals Snf Goals PT Snf Goals Time Frame: Nov 18, 2019 Roll Left & Right (QC): 6 Sit to Lying (QC): 6 Lying-Sitting on Side/Bed(QC): 6 Sit to Stand (QC): 6 Chair/Lld-rh-Vabiv Xfer(QC): 6 Toilet Transfer (QC): 6 Car Transfer (QC): 6 Does the Patient Walk: Yes Walk 10 feet (QC): 6 Walk 50ft with 2 Turns (QC): 6 Walk 150 ft (QC): 6 Walking 10ft on Uneven Surface: 6 1 Step (curb) (QC): 5 4 Steps (QC): 5 12 Steps (QC): 9 Picking up an Object (QC): 4 Does the Pt use WC or Scooter?: No Wheel 50 feet with 2 turns (QC: 9 Wheel 150 feet: 9 PT Plan Treatment/Plan Treatment Plan: Continue Plan of Care Treatment Plan: Bed Mobility, Education, Functional Activity Odalys, Functional Strength, Group Therapy, Gait, Safety, Therapeutic Exercise, Transfers Treatment Duration: Nov 18, 2019 Frequency: At least 5 of 7 days/Wk (IRF) Estimated Hrs Per Day: 1.5 hours per day Patient and/or Family Agrees t: Yes Time/GCodes Time In: 1050 Time Out: 1200 Total Billed Treatment Time: 70 Total Billed Treatment 1 visit FA x 3 47 min EX x 2 23 min PAUL REYES PT Nov 04, 2019 12:00
--- NOTE | 2019-11-04 13:13 | NUR ---
"RD ASSESSMENT PMHx: hypercholesterolemia; HTN; DM; CA(colon) PT INTERACTION: Pt was awake and pleasant during nutrition assessment. Pt states she has been eating well since last assessment. Note avg PO intake approx 90% meals, per chart review. Pt states no issues with nausea, vomiting, constipation, or diarrhea since last assessment. Note last BM was 11/01, and pt currently on bowel regimen of colace BID; and miralax BID, per chart review. ABNORMAL NUTRITION-RELATED LAB VALUES LOW: Pro 6.2 HIGH: BUN 44; cr 1.51; glu 177; Ca 115 Est. kcal needs: 1425 kcal | 15 kcal/kg Est. Pro needs: 76 g Pro | 0.8 g Pro/kg PES STATEMENT: Given current PO intake, no nutrition diagnosis at this time (NO-1.1) INTERVENTION: Continue with current diet order of CHO 60g/m 1snack diet. Will continue to follow and reassess as pt needs, intake, and status change. MONITOR/EVALUATE: PO Intake; Plan of Care; Hydration Status; Weight Status; Lab Values Shikha Best, MS, RD, LD"
--- NOTE | 2019-11-04 13:30 | Physical Therapy Daily Note ---
PT Daily Note-Current Subjective Patient agrees to PT. Mental Status Patient Orientation: Normal For Age Transfers SCALE: Activities may be completed with or without assistive devices. 0-Fhkejakgfs-xjzidkh completes the activity by him/herself with no assistance from a helper. 5-Set-up or Clean-up Assistance-helper sets up or cleans up; patient completes activity. [place] assists only prior to or following the activity. 4-Supervision or Touching Assistance-helper provides verbal cues and/or touching/steadying and/or contact guard assistance as patient completes activity. Assistance may be provided throughout the activity or intermittently. 3-Partial/Moderate Assistance-helper does LESS THAN HALF the effort. [place] lifts, holds or supports trunk or limbs, but provides less than half the effort. 2-Substantial/Maximal Assistance-helper does MORE THAN HALF the effort. [place] lifts or holds trunk or limbs and provides more than half the effort. 5-Nbhkyygws-gevucg does ALL the effort. Patient does none of the effort to complete the activity. Or, the assistance of 2 or more helpers is required for the patient to complete the activity. If activity was not attempted, code reason: 7-Patient Refused. 9-Not Applicable-not attempted and the patient did not perform the activity befo re the current illness, exacerbation or injury. 10-Not Attempted due to Environmental Limitations-(lack of equipment, weather re straints, etc.). 88-Not Attempted due to Medical Conditions or Safety Concerns. Sit to Stand (QC): 5 Toilet Transfer (QC): 5 Weight Bearing Right Lower Extremity: Right Weight Bearing/Tolerated Left Lower Extremity: Left Weight Bearing/Tolerated Gait Training Does the Patient Walk?: Yes Distance: 300' x 2 Walk 10 feet (QC): 5 Walk 50 ft with 2 Turns(QC): 5 Walk 150 ft (QC): 5 Gait Assistive Device: FWW slow, shuffle gait sequence Exercises Seated Therapy Exercises: Ankle pumps, Long arc quads, Hip flexion, Glut set Seated Reps: 15 (2 sets) Assessment Current Status: Good Progress Patient improving with treatment plan. Continues to require time to complete all functional tasks. PT Short Term Goals Short Term Goals Time Frame: Nov 04, 2019 Sit to lyin Lying to sitting on side of be: 4 Sit to stand: 4 Walk 150 feet: 4 PT Longterm Goals Longterm Goals PT Biomedical Equipment Specialist Goals Time Frame: Nov 18, 2019 Roll Left & Right (QC): 6 Sit to Lying (QC): 6 Lying-Sitting on Side/Bed(QC): 6 Sit to Stand (QC): 6 Chair/Ucc-do-Avnit Xfer(QC): 6 Toilet Transfer (QC): 6 Car Transfer (QC): 6 Does the Patient Walk: Yes Walk 10 feet (QC): 6 Walk 50ft with 2 Turns (QC): 6 Walk 150 ft (QC): 6 Walking 10ft on Uneven Surface: 6 1 Step (curb) (QC): 5 4 Steps (QC): 5 12 Steps (QC): 9 Picking up an Object (QC): 4 Does the Pt use WC or Scooter?: No Wheel 50 feet with 2 turns (QC: 9 Wheel 150 feet: 9 PT Plan Treatment/Plan Treatment Plan: Continue Plan of Care Treatment Plan: Bed Mobility, Education, Functional Activity Odalys, Functional Strength, Group Therapy, Gait, Safety, Therapeutic Exercise, Transfers Treatment Duration: Nov 18, 2019 Frequency: At least 5 of 7 days/Wk (IRF) Estimated Hrs Per Day: 1.5 hours per day Patient and/or Family Agrees t: Yes Time/GCodes Time In: 1300 Time Out: 1323 Total Billed Treatment Time: 23 Total Billed Treatment 1 visit FA 10 min EX 13 min PAUL REYES PT Nov 04, 2019 13:29
--- NOTE | 2019-11-04 14:15 | Occupational Ther Daily Note ---
OT Current Status-Daily Note Subjective Pt in reclining chair, agreeable to therapy when OT entered the room. No c/o pain. Mental Status/Objective Patient Orientation: Person, Place, Situation ADL-Treatment Therapy Code Descriptions/Definitions Functional [place] Measure: 0=Not Assessed/NA 4=Minimal Assistance 1=Total Assistance 5=Supervision or Setup 2=Maximal Assistance 6=Modified [place] 3=Moderate Assistance 7=Complete IndependenceSCALE: Activities may be completed with or without assistive devices. 1-Yxnigpyalz-cctitst completes the activity by him/herself with no assistance from a helper. 5-Set-up or Clean-up Assistance-helper sets up or cleans up; patient completes activity. [place] assists only prior to or following the activity. 4-Supervision or Touching Assistance-helper provides verbal cues and/or touching/steadying and/or contact guard assistance as patient completes activity. Assistance may be provided throughout the activity or intermittently. 3-Partial/Moderate Assistance-helper does LESS THAN HALF the effort. [place] lifts, holds or supports trunk or limbs, but provides less than half the effort. 2-Substantial/Maximal Assistance-helper does MORE THAN HALF the effort. [place] lifts or holds trunk or limbs and provides more than half the effort. 5-Wkewhpctn-ivflbu does ALL the effort. Patient does none of the effort to complete the activity. Or, the assistance of 2 or more helpers is required for the patient to complete the activity. If activity was not attempted, code reason: 7-Patient Refused. 9-Not Applicable-not attempted and the patient did not perform the activity before the current illness, exacerbation or injury. 10-Not Attempted due to Environmental Limitations-(lack of equipment, weather restraints, etc.). 88-Not Attempted due to Medical Conditions or Safety Concerns. Other Treatment Pt ambulated to therapy gym with walker and extra time with Mod I. She did not require any rest breaks. Pt. tolerated 10 minutes on arm bike at moderate resistance with multiple rest breaks. She ambulated to [facility] kitchen. Pt poured cup of coffee from full coffee pot with SBA while standing at the kitchen counter. OT provided skilled education on safety while in the kitchen. Pt. verbalized understanding. She ambulated back to room with OT carrying cup of coffee. She was in recliner with call light in reach at the end of session. All needs met. Education OT Patient Education: Correct positioning, Energy conservation, Modified ADL techniques, Progress toward Goal/Update tx plan, Purpose of tx/functional activities, Reviewed precautions, Rehab process Teaching Recipient: Patient Teaching Methods: Demonstration, Discussion Response to Teaching: Verbalize Understanding, Return Demonstration OT Short Term Goals Short Term Goals Time Frame: Nov 04, 2019 Eatin Oral hygiene: 6 Toileting hygiene: 4 Shower/bathe self: 4 Upper body dressin Lower body dressin Putting on/taking off footwear: 4 OT [facility] Goals Equipment Associate Goals Time Frame: Nov 11, 2019 Eating (QC): 6 Oral Hygiene (QC): 6 Toileting Hygiene (QC): 6 Shower/Bathe Self (QC): 6 Upper Body Dressing (QC): 6 Lower Body Dressing (QC): 6 On/Off Footwear (QC): 6 Additional Goals: 1-Demonstrate ADL Tasks, 2-Verbalize Understanding, 3- ImproveStrength/Odalys 1=Demonstrate adherence to instructed precautions during ADL tasks. 2=Patient will verbalize/demonstrate understanding of assistive devices/modifications for ADL. 3=Patient will improve strength/tolerance for activity to enable patient to perform ADL's. OT Education/Plan Problem List/Assessment Assessment: Decreased Activ Tolerance, Decreased UE Strength Discharge Recommendations Plan/Recommendations: Continue POC Therapy Discharge Recommendati: Post Acute OT Treatment Plan/Plan of Care Treatment,Training & Education: Yes Patient would benefit from OT for education, treatment and training to promote independence in ADL's, mobility, safety and/or upper extremity function for ADL's. Plan of Care: ADL Retraining, Concurrent Therapy, Functional Mobility, Group Exercise/Act as Ind, UE Funct Exercise/Act Treatment Duration: Nov 11, 2019 Frequency: At least 5 of 7 days/Wk (IRF) Estimated Hrs Per Day: 1.5 hours per day Agreement: Yes Rehab Potential: Good Time/GCodes Start Time: 13:30 Stop Time: 14:00 Total Time Billed (hr/min): 30 Billed Treatment Time 1, EX (15 minutes), FA (15 minutes) KEESHA AUGUSTIN OT Nov 04, 2019 14:15
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
[2019-11-04 16:15] VITALS: BP 152/65
[2019-11-04] MEDS: GLIMEPIRIDE 2 MG (AMARYL) TAB PO SCH (16:19)
[2019-11-04] MEDS: TOLTERODINE LA 4 MG (DETROL) CAP PO SCH ×2 (16:20→20:03)
[2019-11-04] MEDS: ENOXAPARIN 40 MG/0.4 ML (LOVENOX) SYR SC SCH (16:58)
--- NOTE | 2019-11-04 18:09 | Cardiology Progress Note ---
Cardiology SOAP Progress Note Subjective: No cardiac complaints. Objective: I&O/Vital Signs 11/04/19 08:38 O2 Delivery Room Air Weight (Pounds): 221 Weight (Ounces): 3.0 Weight (Calculated Kilograms): [id number] Constitutional: AAO x 3 Respiratory: chest is bilaterally symmetric, lungs clear to auscultation Cardiovascular: regular rate-rhythm, bradycardia, S1 and S2 Gastrointestional: soft, audible bowel sounds Extremities: normal range of motion, non-tender, normal inspection, pedal edema Neurologic/Psychiatric: no motor/sensory deficits, alert, normal mood/affect, oriented x 3 A/P: Assessment/Dx: UTI sepsis, resolved. Acute on chronic kidney disease, Anemia, Sinus bradycardia, asymptomatic. Hypertension, History of colon cancer and breast cancer. Plan: UTI sepsis, resolved. Acute on chronic kidney disease, improved significantly. Anemia, likely due to chronic kidney disease. Sinus bradycardia, currently in the 50s. Asymptomatic Atenolol discontinued. Echocardiogram showed normal LV function with mild pulmonary hypertension. Mild diastolic dysfunction. Hypertension, on valsartan. History of colon cancer and breast cancer. Thank you for your consultation. Please call me if you have any questions. Arleen Ha MD, FACP, FACC, FSCAI, FHRS, CCDS Interventional Cardiology Cardiac Electrophysiology Vascular Medicine and Endovascular Interventions Otis HA MD Nov 04, 2019 18:09
[2019-11-05] MEDS: ACETAMINOPHEN 325 MG TABLET PO PRN (04:18)
[2019-11-05 05:18] VITALS: BP 146/63
[2019-11-05] MEDS: inSUlin ASPART (NovoLOG) 1 UNIT/0.01 ML (CHARGE PER UNIT) SC SCH ×4 (06:08→21:21)
[2019-11-05] MEDS: GLIMEPIRIDE 2 MG (AMARYL) TAB PO SCH (06:10)
[2019-11-05] MEDS: HYDROCHLOROTHIAZIDE 25 MG (HCTZ) TAB PO SCH (08:23)
[2019-11-05] MEDS: MAGNESIUM OXIDE (MAG-OX)400 MG TAB PO SCH ×2 (08:23→17:50)
[2019-11-05] MEDS: DOCUSATE SODIUM 100 MG (COLACE) CAP PO SCH ×2 (08:23→21:16)
[2019-11-05] MEDS: ASPIRIN E.C. 81 MG (ECOTRIN) TAB PO SCH (08:23)
[2019-11-05] MEDS: PANTOPRAZOLE 40 MG (PROTONIX) TAB PO SCH (08:23)
[2019-11-05] MEDS: VITAMIN D3 25 MCG (1,000 UNITS) TABLET PO SCH (08:24)
[2019-11-05] MEDS: VALSARTAN 160 MG (DIOVAN) TABLET PO SCH (08:24)
[2019-11-05] MEDS: LEVETIRACETAM 500 MG (KEPPRA) TAB PO SCH ×2 (08:25→21:16)
[2019-11-05] MEDS: SERTRALINE 50 MG (ZOLOFT) TABLET PO SCH (08:25)
[2019-11-05] MEDS: polyethylene glycoL POWDER 17 GM (MIRALAX) PACK PO SCH ×2 (08:26→21:16)
[2019-11-05] MEDS: LETROZOLE 2.5 MG (FEMARA) TAB PO SCH (08:26)
--- NOTE | 2019-11-05 08:59 | Physical Therapy Daily Note ---
PT Daily Note-Current Subjective Pt. in bed asleep and very difficult to awaken. Pt. has no c/o pain, just fatigue but states she slept ok last night Pain Location: No Pain Reported Mental Status Patient Orientation: Person, Place, Time, Situation pt. forgetful of immediate task and needs many reminders this AM Transfers SCALE: Activities may be completed with or without assistive devices. 5-Vvprjkccku-dqwkjds completes the activity by him/herself with no assistance from a helper. 5-Set-up or Clean-up Assistance-helper sets up or cleans up; patient completes activity. [place] assists only prior to or following the activity. 4-Supervision or Touching Assistance-helper provides verbal cues and/or touching/steadying and/or contact guard assistance as patient completes activity. Assistance may be provided throughout the activity or intermittently. 3-Partial/Moderate Assistance-helper does LESS THAN HALF the effort. [place] lifts, holds or supports trunk or limbs, but provides less than half the effort. 2-Substantial/Maximal Assistance-helper does MORE THAN HALF the effort. [place] lifts or holds trunk or limbs and provides more than half the effort. 0-Yenealpzi-vcltgj does ALL the effort. Patient does none of the effort to complete the activity. Or, the assistance of 2 or more helpers is required for the patient to complete the activity. If activity was not attempted, code reason: 7-Patient Refused. 9-Not Applicable-not attempted and the patient did not perform the activity bef ore the current illness, exacerbation or injury. 10-Not Attempted due to Environmental Limitations-(lack of equipment, weather r estraints, etc.). 88-Not Attempted due to Medical Conditions or Safety Concerns. Roll Left & Right (QC): 6 Sit to Lying (QC): 6 Lying to Sitting/Side of Bed(Q: 6 Sit to Stand (QC): 6 Chair/Psl-uv-Guugu Xfer(QC): 5 Toilet Transfer (QC): 6 pt. has unsafe chair approach , abandoning FWW to side and putting both hands on seating surface to then put bottom in chair. Pt instructed in safe chair approach multiple times, states she doesnt ever remember being told this Weight Bearing Right Lower Extremity: Right Weight Bearing/Tolerated Left Lower Extremity: Left Weight Bearing/Tolerated Gait Training Does the Patient Walk?: Yes Walk 10 feet (QC): 6 Walk 50 ft with 2 Turns(QC): 5 Walk 150 ft (QC): 5 Gait Persons Needed: 1 Gait Assistive Device: FWW kyphotic , needs some cuing at times as to destination Stair Training Stair Training: Handrails/: 2 handrails #of Steps: 4 4 Steps (QC): 4 Stairs: Pattern: Step to descending is most challenging as pt. has discomfort in hips and knees Exercises Seated Therapy Exercises: Ankle pumps, Sit to stand, Long arc quads, Hip flexion Seated Reps: 12 NuStep Minutes: 10 NuStep Workload: 4 Treatments toileted indep Assessment Current Status: Good Progress pt. unmotivated at times, needs encouragement and reminders secondary to memory PT Short Term Goals Short Term Goals Time Frame: Nov 04, 2019 Sit to lyin Lying to sitting on side of be: 4 Sit to stand: 4 Walk 150 feet: 4 PT Computer Instructor Goals Alf Goals PT Alf Goals Time Frame: Nov 18, 2019 Roll Left & Right (QC): 6 Sit to Lying (QC): 6 Lying-Sitting on Side/Bed(QC): 6 Sit to Stand (QC): 6 Chair/Cfw-so-Ouyaq Xfer(QC): 6 Toilet Transfer (QC): 6 Car Transfer (QC): 6 Does the Patient Walk: Yes Walk 10 feet (QC): 6 Walk 50ft with 2 Turns (QC): 6 Walk 150 ft (QC): 6 Walking 10ft on Uneven Surface: 6 1 Step (curb) (QC): 5 4 Steps (QC): 5 12 Steps (QC): 9 Picking up an Object (QC): 4 Does the Pt use WC or Scooter?: No Wheel 50 feet with 2 turns (QC: 9 Wheel 150 feet: 9 PT Plan Treatment/Plan Treatment Plan: Continue Plan of Care Treatment Plan: Bed Mobility, Education, Functional Activity Od[place], Functional Strength, Group Therapy, Gait, Safety, Therapeutic Exercise, Transfers Treatment Duration: Nov 18, 2019 Frequency: At least 5 of 7 days/Wk (IRF) Estimated Hrs Per Day: 1.5 hours per day Patient and/or Family Agrees t: Yes Safety Risks/Education Patient Education: Gait Training, Transfer Techniques, Steps, Correct Positioning, Disease Process, Safety Issues Teaching Recipient: Patient Teaching Methods: Demonstration, Discussion Response to Teaching: Verbalize Understanding, Return Demonstration, Reinforcement Needed Time/GCodes Time In: 800 Time Out: 900 Total Billed Treatment Time: 60 Total Billed Treatment 1,EX20m,GT15m,FA25m ANDREZ KING [employer] LE[employer] INFORMATION CLERK Nov 05, 2019 08:59
--- NOTE | 2019-11-05 10:30 | PM&R Progress Note ---
Subjective HPI/CC On Admission Date Seen by Provider: Nov 05, 2019 Time Seen by Provider: 10:30 Subjective/Events-last exam 11/05/19: Decreased motivation most of the time BM+ Sugars are ok No pain 11/04/19: Had some diarrhea yesterday holding laxatives Detrol is helping with the incontinence Overall feels like she is doing much better 11/03/19: Moving pretty well Bowels are moving Incontinence is improved on Detrol Taking Tylenol for knee pain K pad helps with the back pain 11/02/19: Bowels are pretty regular, even loose History of severe constipation requiring soap-suds enemas No major issues Detrol is really helping her incontinence Wants to go home soon 11/01/19: Creatinine remains stable at 1.5 Hgb 9.1 Bowels are moving pretty well with laxative Trying to get her hand to work better for her 10/31/19: Patient feels pretty well Kpad helping with back pain Motivation is low chronically BM yesterday Laxatives maintained 10/30/19: Left knee pain persists Daughter at bedside Sugars are ok Decreased motivation noted which appears to be chronic Kpad ordered for back pain Enema given on 10/26 and asked for supp and had BM yesterday PVR 100-200cc and she refused in/out catheter Detrol started 10/29/19: Amoxil treating the UTI Incontinence continues Appreciate urology consultation for continued incontinence from her stroke Chronic pain is an issue for her back and knee Hgb 8.9, Creatinine 1.28 Checked labs and meds Conferred with RN Reviewed therapy notes Review of Systems General: Fatigue, Malaise Genitourinary: Incontinence Neurological: Weakness Objective Exam Vital Signs Vital Signs Date Time Temp Pulse Resp B/P (MAP) Pulse Ox O2 Delivery O2 Flow Rate FiO2 11/05/19 16:30 36.3 53 14 166/72 (103) 98 Room Air Capillary Refill : Less Than 3 Seconds General Appearance: No Apparent Distress, WD/WN, Chronically ill, Obese HEENT: PERRL/EOMI, Normal ENT Inspection, Pharynx Normal Neck: Full Range of Motion, Normal Inspection, Non Tender, Supple, Carotid Bruit Respiratory: Chest Non Tender, Lungs Clear, Normal Breath Sounds, No Accessory Muscle Use, No Respiratory Distress Cardiovascular: Regular Rate, Rhythm, No Edema, No Gallop, No JVD, No Murmur, Normal Peripheral Pulses Gastrointestinal: Normal Bowel Sounds, No Organomegaly, No Pulsatile Mass, Non Tender, Soft Back: Normal Inspection, No CVA Tenderness, No Vertebral Tenderness Extremity: Normal Capillary Refill, Normal Inspection, Normal Range of Motion, Non Tender, No Calf Tenderness, No Pedal Edema Neurologic/Psychiatric: Alert, Oriented x3, No Motor/Sensory Deficits, Normal Mood/Affect, [place] II-XII Norm as Tested, Abnormal Gait, Motor Weakness (right arm and leg 4/5), Other (generalized weakness all extremities) Skin: Normal Color, Warm/Dry Lymphatic: No Adenopathy Results/Procedures Lab Patient resulted labs reviewed. FIM Transfers Therapy Code Descriptions/Definitions Functional [place] Measure: 0=Not Assessed/NA 4=Minimal Assistance 1=Total Assistance 5=Supervision or Setup 2=Maximal Assistance 6=Modified [place] 3=Moderate Assistance 7=Complete IndependenceSCALE: Activities may be completed with or without assistive devices. 4-Lvmkxalehg-polmhgf completes the activity by him/herself with no assistance from a helper. 5-Set-up or Clean-up Assistance-helper sets up or cleans up; patient completes activity. [place] assists only prior to or following the activity. 4-Supervision or Touching Assistance-helper provides verbal cues and/or touching/steadying and/or contact guard assistance as patient completes activity. Assistance may be provided throughout the activity or intermittently. 3-Partial/Moderate Assistance-helper does LESS THAN HALF the effort. [place] lifts, holds or supports trunk or limbs, but provides less than half the effort. 2-Substantial/Maximal Assistance-helper does MORE THAN HALF the effort. [place] lifts or holds trunk or limbs and provides more than half the effort. 4-Zvoyssmut-umzwnz does ALL the effort. Patient does none of the effort to complete the activity. Or, the assistance of 2 or more helpers is required for the patient to complete the activity. If activity was not attempted, code reason: 7-Patient Refused. 9-Not Applicable-not attempted and the patient did not perform the activity before the current illness, exacerbation or injury. 10-Not Attempted due to Environmental Limitations-(lack of equipment, weather restraints, etc.). 88-Not Attempted due to Medical Conditions or Safety Concerns. Roll Left to Right (QC): 6 Sit to Lying (QC): 6 Sit to Stand (QC): 6 Chair/Itm-pf-Kqrpc Xfer(QC): 5 Car Transfer (QC): 3 Gait Training Does the Patient Walk?: Yes Distance: 300' x 2 Walk 10 feet (QC): 6 Walk 50 ft with 2 Turns(QC): 5 Walk 150 ft (QC): 5 Walking 10ft/uneven surface-QC: 5 Gait Persons Needed: 1 Gait Assistive Device: FWW Wheelchair Training Does the Pt Use a Wheelchair?: No Wheel 50 ft with 2 turns (QC): 9 Wheel 150 ft (QC): 9 Stair Training Stair Training: Handrails/: 2 handrails #of Steps: 4 1 Step (curb) (QC): 5 4 Steps (QC): 4 12 Steps (QC): 88 Stairs: Pattern: Step to Balance Picking up an Object (QC): 88 (unsafe to attempt) ADL-Treatment Eating (QC): 6 (Per pt report) Oral Hygiene (QC): 6 Shower/Bathe Self (QC): 3 (Min A) Upper Body Dressing (QC): 6 Lower Body Dressing (QC): 6 On/Off Footwear (QC): 5 (Pt. able to don slipper socks independently, but required assistance with JACQUELIN hose.) Toileting Hygiene (QC): 6 Toilet Transfer (QC): 6 Assessment/Plan Assessment and Plan Assess & Plan/Chief Complaint Assessment: Debility UTI CARY on CKD Stage 3 Dehydration s/p IVF NIDDMII HTN History of Stroke with right sided weakness residual DVT ppx: Lovenox Constipation Plan: Constipation management IRF protocol Home meds UTI Tx 10/29/19: Patient doing pretty well Incontinence continues UTI being treated Urology consulted Chronic pain Will start K pad Monitor hemoglobin 10/30/19: Kpad Detrol for incontinence Decreased motivation noted 10/31/19: Pain management with APAP Kpad to maintain Monitor BP and HR 11/01/19: Monitor creatinine Continue aggressive bowel regimen Continue aggressive therapy 11/02/19: Continue bowel regimen Complete UTI treatment Appreciate urology consultation with the addition of Detrol 11/03/19: Continue aggressive therapy Incontinence management Fall risk 11/04/19: Improved status Detrol doing well Fall risk prevention 11/05/19: Monitor strength Fall risk Monitor BP (1) Debility (2) Constipation Status: Acute (3) Urinary tract infection Status: Acute (4) Acute renal failure Status: Acute (5) Hyperglycemia Status: Acute (6) Bradyarrhythmia Status: Acute (7) Carcinoma of left breast Status: Chronic (8) Hypertension Status: Chronic (9) History of colon cancer (10) Hx of colonic polyps (11) Depression Status: Chronic (12) Right sided weakness Status: Acute (13) CVA (cerebral vascular accident) Status: Acute VANESSA LOPEZ DO Nov 05, 2019 10:30
--- NOTE | 2019-11-05 10:44 | Progress Note - Cardiology ---
Cardiology SOAP Progress Note Subjective: Sitting up in recliner at the bedside. Denies any CP. C/O bilat knee pain (chronic). No c/o dyspnea, palpitations. Objective: I&O/Vital Signs 11/05/19 05:18 Temp 36.4 Pulse 70 Resp 20 B/P (MAP) 146/63 (90) Pulse Ox 95 O2 Delivery Room Air 11/05/19 00:00 Intake Total 920 ml Balance 920 ml Weight (Pounds): 221 Weight (Ounces): 3.0 Weight (Calculated Kilograms): 100.906402 Constitutional: AAO x 3, well-developed, well-nourished Respiratory: chest is bilaterally symmetric, lungs clear to auscultation Cardiovascular: regular rate-rhythm, S1 and S2 Gastrointestional: soft, audible bowel sounds Extremities: no lower extremity edema bilateral Skin: No rash on exposed areas, No ulcerations on exposed areas A/P: Assessment: UTI sepsis, resolved. Acute on chronic renal insufficiency - improved Anemia, likely due to chronic kidney disease. Sinus bradycardia, albeit asymptomatic - improved following cessation of Atenolol. Echocardiogram of Oct 28, [address] Ha showed normal LV function with mild pulmonary hypertension. Mild diastolic dysfunction. Hypertension Reports h/o CVA in Apr 2019 for which she was evaluated at [facility] - details unknown H/O carotid arterial disease per CT of the head Apr 2019 History of colon cancer and breast cancer. Plan: Continue current regimen Monitor lab from time to time Adjust anti-hypertensive regimen as indicated H/O carotid arterial disease - continue ASA Records from Dr. Ha have been reviewed RAYMOND HOLLIS Nov 05, 2019 10:44
--- NOTE | 2019-11-05 11:20 | Occupational Ther Daily Note ---
OT Current Status-Daily Note Subjective Pt in reclining chair when OT entered room. No c/o pain. Pt agreeable to therapy. Mental Status/Objective Patient Orientation: Person, Place, Time, Situation, Normal For Age ADL-Treatment Therapy Code Descriptions/Definitions Functional [place] Measure: 0=Not Assessed/NA 4=Minimal Assistance 1=Total Assistance 5=Supervision or Setup 2=Maximal Assistance 6=Modified [place] 3=Moderate Assistance 7=Complete IndependenceSCALE: Activities may be completed with or without assistive devices. 4-Nstirtsmbw-zhxorjs completes the activity by him/herself with no assistance from a helper. 5-Set-up or Clean-up Assistance-helper sets up or cleans up; patient completes activity. [place] assists only prior to or following the activity. 4-Supervision or Touching Assistance-helper provides verbal cues and/or touching/steadying and/or contact guard assistance as patient completes activity. Assistance may be provided throughout the activity or intermittently. 3-Partial/Moderate Assistance-helper does LESS THAN HALF the effort. [place] lifts, holds or supports trunk or limbs, but provides less than half the effort. 2-Substantial/Maximal Assistance-helper does MORE THAN HALF the effort. [place] lifts or holds trunk or limbs and provides more than half the effort. 3-Sblyzoqlx-ppelue does ALL the effort. Patient does none of the effort to complete the activity. Or, the assistance of 2 or more helpers is required for the patient to complete the activity. If activity was not attempted, code reason: 7-Patient Refused. 9-Not Applicable-not attempted and the patient did not perform the activity before the current illness, exacerbation or injury. 10-Not Attempted due to Environmental Limitations-(lack of equipment, weather restraints, etc.). 88-Not Attempted due to Medical Conditions or Safety Concerns. Shower/Bathe Self (QC): 6 Upper Body Dressing (QC): 6 Lower Body Dressing (QC): 6 On/Off Footwear: 4 (SBA for balance while seated) Toileting Hygiene (QC): 6 Toilet Transfer (QC): 6 Pt ambulated to closet independently with walker to select clothing. She then walked with walker to toilet. While seated on toilet, she completed thea cleansing independently. Pt transferred to shower with walker independently and doffed dress, brief, and socks. She bathed and dried independently while seated on shower chair. After shower, pt able to don shirt, pants,and brief independently. Pt required SBA for balance with donning socks while seated on shower chair. Noted that pt requires extra time to complete all tasks. Pt. ambulated back to reclining chair with walker and had call light within reach at the end of session. All needs met. Education OT Patient Education: Correct positioning, Modified ADL techniques, Progress toward Goal/Update tx plan, Purpose of tx/functional activities, Reviewed precautions, Rehab process, Safety issues, Transfer techniques Teaching Recipient: Patient Teaching Methods: Demonstration, Discussion Response to Teaching: Verbalize Understanding, Return Demonstration OT Short Term Goals Short Term Goals Time Frame: Nov 04, 2019 Eatin Oral hygiene: 6 Toileting hygiene: 4 Shower/bathe self: 4 Upper body dressin Lower body dressin Putting on/taking off footwear: 4 OT Care Home Goals Care Home Goals Time Frame: Nov 11, 2019 Eating (QC): 6 Oral Hygiene (QC): 6 Toileting Hygiene (QC): 6 Shower/Bathe Self (QC): 6 Upper Body Dressing (QC): 6 Lower Body Dressing (QC): 6 On/Off Footwear (QC): 6 Additional Goals: 1-Demonstrate ADL Tasks, 2-Verbalize Understanding, 3- ImproveStrength/Odalys 1=Demonstrate adherence to instructed precautions during ADL tasks. 2=Patient will verbalize/demonstrate understanding of assistive devices/modifications for ADL. 3=Patient will improve strength/tolerance for activity to enable patient to perform ADL's. OT Education/Plan Problem List/Assessment Assessment: Decreased Activ Tolerance Discharge Recommendations Plan/Recommendations: Continue POC Treatment Plan/Plan of Care Treatment,Training & Education: Yes Patient would benefit from OT for education, treatment and training to promote independence in ADL's, mobility, safety and/or upper extremity function for ADL's. Plan of Care: ADL Retraining, Concurrent Therapy, Functional Mobility, Group Exercise/Act as Ind, UE Funct Exercise/Act Treatment Duration: Nov 11, 2019 Frequency: At least 5 of 7 days/Wk (IRF) Estimated Hrs Per Day: 1.5 hours per day Agreement: Yes Rehab Potential: Good Time/GCodes Start Time: 09:00 Stop Time: 10:00 Total Time Billed (hr/min): 60 Billed Treatment Time 1, ADL 4 (60 minutes) ANDRIY BERRY OTR Nov 05, 2019 11:20
--- NOTE | 2019-11-05 14:50 | Therapy Group Daily Note ---
Therapy Daily Group Note Patient Education Topic Other List Below (preparing for independence, TRFs and mobility) Exercises LE Seated Exercise, UE Exercise Session Ratio (pt:therapist): 4:1 Goal of Session: Memory Strategies, UE/LE Strengthing, Safety with Transfers Goal Met for this Session: Yes Pt Benefit of Group: Increased Functional Safety, Increased Functional Strength, Socialization Other/Notes Pt. participated in group PT OT session . Pt. came and went ambulating using FWW . Pts. reviewed the memory activity of last group session recalling 5 items, all successful. Friday therapy was explained. Bed and chair TRFs were demonstrated and explained in detail. The goal of working toward independence and home was discussed. Seated U&L extremity therex was done with pts leading and demonstrating from written illustration cards. Pt. to room after with all needs met, clarence at hand Start Time: 13:00 Stop Time: 14:15 Total Billed Treatment Time: 75 Total Billed Treatment 1,GRP ANDREZ KING COAL DUMPING EQUIPMENT OPERATOR Nov 05, 2019 14:50
--- NOTE | 2019-11-05 14:57 | Progress Note - Cardiology ---
Cardiology SOAP Progress Note Subjective: No cp or palp or syncope or shortness of breath Gen weakness present No n/v/d Objective: I&O/Vital Signs 11/05/19 11/05/19 05:18 09:00 Temp 36.4 Pulse 70 Resp 20 B/P (MAP) 146/63 (90) Pulse Ox 95 O2 Delivery Room Air Room Air 11/05/19 00:00 Intake Total 920 ml Balance 920 ml Weight (Pounds): 221 Weight (Ounces): 3.0 Weight (Calculated Kilograms): 100.842123 Constitutional: AAO x 3, well-developed, well-nourished Respiratory: chest is bilaterally symmetric, lungs clear to auscultation Cardiovascular: regular rate-rhythm, S1 and S2 Gastrointestional: soft, audible bowel sounds Extremities: no lower extremity edema bilateral Skin: No rash on exposed areas, No ulcerations on exposed areas Results/Procedures: Labs Laboratory Tests 11/04/19 15:33: Glucometer 226H 11/04/19 20:25: Glucometer 209H 11/05/19 05:57: Glucometer 176H 11/05/19 10:59: Glucometer 273H A/P: Assessment: UTI sepsis, resolved. Acute on chronic renal insufficiency - improved Anemia, likely due to chronic kidney disease. Sinus bradycardia, albeit asymptomatic - improved following cessation of Atenolol. Echocardiogram of Oct 28, [address] Ha showed normal LV function with mild pulmonary hypertension. Mild diastolic dysfunction. Hypertension Reports h/o CVA in Apr 2019 for which she was evaluated at [facility] - details unknown H/O carotid arterial disease per CT of the head Apr 2019 History of colon cancer and breast cancer. Plan: We reviewed her records and interviewed and examined her Continue current regimen Monitor lab from time to time Adjust anti-hypertensive regimen as indicated H/O carotid arterial disease - continue SILVESTRE HOLLINS MD FACP [facility] Nov 05, 2019 14:57
[2019-11-05 16:30] VITALS: BP 166/72
[2019-11-05] MEDS: ENOXAPARIN 40 MG/0.4 ML (LOVENOX) SYR SC SCH (17:50)
[2019-11-05] MEDS: TOLTERODINE LA 4 MG (DETROL) CAP PO SCH (21:16)
[2019-11-06] MEDS: GLIMEPIRIDE 2 MG (AMARYL) TAB PO SCH (06:04)
[2019-11-06] MEDS: inSUlin ASPART (NovoLOG) 1 UNIT/0.01 ML (CHARGE PER UNIT) SC SCH ×4 (06:04→20:34)
[2019-11-06 06:22] VITALS: BP 125/58
[2019-11-06] MEDS: VALSARTAN 160 MG (DIOVAN) TABLET PO SCH (09:31)
[2019-11-06] MEDS: MAGNESIUM OXIDE (MAG-OX)400 MG TAB PO SCH ×2 (09:31→16:26)
[2019-11-06] MEDS: LEVETIRACETAM 500 MG (KEPPRA) TAB PO SCH ×2 (09:32→20:32)
[2019-11-06] MEDS: ASPIRIN E.C. 81 MG (ECOTRIN) TAB PO SCH (09:32)
[2019-11-06] MEDS: SERTRALINE 50 MG (ZOLOFT) TABLET PO SCH (09:32)
[2019-11-06] MEDS: polyethylene glycoL POWDER 17 GM (MIRALAX) PACK PO SCH ×2 (09:33→20:34)
[2019-11-06] MEDS: PANTOPRAZOLE 40 MG (PROTONIX) TAB PO SCH (09:33)
[2019-11-06] MEDS: VITAMIN D3 25 MCG (1,000 UNITS) TABLET PO SCH (09:33)
[2019-11-06] MEDS: HYDROCHLOROTHIAZIDE 25 MG (HCTZ) TAB PO SCH (09:33)
[2019-11-06] MEDS: LETROZOLE 2.5 MG (FEMARA) TAB PO SCH (09:34)
[2019-11-06] MEDS: DOCUSATE SODIUM 100 MG (COLACE) CAP PO SCH ×2 (09:34→20:32)
--- NOTE | 2019-11-06 11:52 | PM&R Progress Note ---
Subjective HPI/CC On Admission Date Seen by Provider: Nov 06, 2019 Time Seen by Provider: 12:00 Subjective/Events-last exam 11/06/19: Doing well now Improving transfers to bathroom Sleeps a lot Less incontinence 11/05/19: Decreased motivation most of the time BM+ Sugars are ok No pain 11/04/19: Had some diarrhea yesterday holding laxatives Detrol is helping with the incontinence Overall feels like she is doing much better 11/03/19: Moving pretty well Bowels are moving Incontinence is improved on Detrol Taking Tylenol for knee pain K pad helps with the back pain 11/02/19: Bowels are pretty regular, even loose History of severe constipation requiring soap-suds enemas No major issues Detrol is really helping her incontinence Wants to go home soon 11/01/19: Creatinine remains stable at 1.5 Hgb 9.1 Bowels are moving pretty well with laxative Trying to get her hand to work better for her 10/31/19: Patient feels pretty well Kpad helping with back pain Motivation is low chronically BM yesterday Laxatives maintained 10/30/19: Left knee pain persists Daughter at bedside Sugars are ok Decreased motivation noted which appears to be chronic Kpad ordered for back pain Enema given on 10/26 and asked for supp and had BM yesterday PVR 100-200cc and she refused in/out catheter Detrol started 10/29/19: Amoxil treating the UTI Incontinence continues Appreciate urology consultation for continued incontinence from her stroke Chronic pain is an issue for her back and knee Hgb 8.9, Creatinine 1.28 Checked labs and meds Conferred with RN Reviewed therapy notes Review of Systems General: Fatigue, Malaise Genitourinary: Incontinence Objective Exam Vital Signs Vital Signs Date Time Temp Pulse Resp B/P (MAP) Pulse Ox O2 Delivery O2 Flow Rate FiO2 11/06/19 07:36 Room Air 11/06/19 06:22 37.2 56 16 125/58 (80) 95 Capillary Refill : Less Than 3 SecondsLess Than 3 Seconds General Appearance: No Apparent Distress, WD/WN, Chronically ill, Obese HEENT: PERRL/EOMI, Normal ENT Inspection, Pharynx Normal Neck: Full Range of Motion, Normal Inspection, Non Tender, Supple, Carotid Bruit Respiratory: Chest Non Tender, Lungs Clear, Normal Breath Sounds, No Accessory Muscle Use, No Respiratory Distress Cardiovascular: Regular Rate, Rhythm, No Edema, No Gallop, No JVD, No Murmur, Normal Peripheral Pulses Gastrointestinal: Normal Bowel Sounds, No Organomegaly, No Pulsatile Mass, Non Tender, Soft Back: Normal Inspection, No CVA Tenderness, No Vertebral Tenderness Extremity: Normal Capillary Refill, Normal Inspection, Normal Range of Motion, Non Tender, No Calf Tenderness, No Pedal Edema Neurologic/Psychiatric: Alert, Oriented x3, No Motor/Sensory Deficits, Normal Mood/Affect, adz worker II-XII Norm as Tested, Abnormal Gait, Motor Weakness (right arm and leg 4/5), Other (generalized weakness all extremities) Skin: Normal Color, Warm/Dry Lymphatic: No Adenopathy Results/Procedures Lab Patient resulted labs reviewed. FIM Transfers Therapy Code Descriptions/Definitions Functional [place] Measure: 0=Not Assessed/NA 4=Minimal Assistance 1=Total Assistance 5=Supervision or Setup 2=Maximal Assistance 6=Modified [place] 3=Moderate Assistance 7=Complete IndependenceSCALE: Activities may be completed with or without assistive devices. 4-Fzdfqkaviw-kfgmfxg completes the activity by him/herself with no assistance from a helper. 5-Set-up or Clean-up Assistance-helper sets up or cleans up; patient completes activity. [place] assists only prior to or following the activity. 4-Supervision or Touching Assistance-helper provides verbal cues and/or touching/steadying and/or contact guard assistance as patient completes activity. Assistance may be provided throughout the activity or intermittently. 3-Partial/Moderate Assistance-helper does LESS THAN HALF the effort. [place] lifts, holds or supports trunk or limbs, but provides less than half the effort. 2-Substantial/Maximal Assistance-helper does MORE THAN HALF the effort. [place] lifts or holds trunk or limbs and provides more than half the effort. 3-Zwzlucjjq-fqdxor does ALL the effort. Patient does none of the effort to co mplete the activity. Or, the assistance of 2 or more helpers is required for the patient to complete the activity. If activity was not attempted, code reason: 7-Patient Refused. 9-Not Applicable-not attempted and the patient did not perform the activity before the current illness, exacerbation or injury. 10-Not Attempted due to Environmental Limitations-(lack of equipment, weather restraints, etc.). 88-Not Attempted due to Medical Conditions or Safety Concerns. Roll Left to Right (QC): 6 Sit to Lying (QC): 6 Sit to Stand (QC): 6 Chair/Dyu-xe-Zcaxg Xfer(QC): 5 Car Transfer (QC): 3 Gait Training Does the Patient Walk?: Yes Distance: 300' x 2 Walk 10 feet (QC): 6 Walk 50 ft with 2 Turns(QC): 5 Walk 150 ft (QC): 5 Walking 10ft/uneven surface-QC: 5 Gait Persons Needed: 1 Gait Assistive Device: FWW Wheelchair Training Does the Pt Use a Wheelchair?: No Wheel 50 ft with 2 turns (QC): 9 Wheel 150 ft (QC): 9 Stair Training Stair Training: Handrails/: 2 handrails #of Steps: 4 1 Step (curb) (QC): 5 4 Steps (QC): 4 12 Steps (QC): 88 Stairs: Pattern: Step to Balance Picking up an Object (QC): 88 (unsafe to attempt) ADL-Treatment Eating (QC): 6 (Per pt report) Oral Hygiene (QC): 6 Shower/Bathe Self (QC): 6 Upper Body Dressing (QC): 6 Lower Body Dressing (QC): 6 On/Off Footwear (QC): 4 (SBA for balance while seated) Toileting Hygiene (QC): 6 Toilet Transfer (QC): 6 Assessment/Plan Assessment and Plan Assess & Plan/Chief Complaint Assessment: Debility UTI CARY on CKD Stage 3 Dehydration s/p IVF NIDDMII HTN History of Stroke with right sided weakness residual DVT ppx: Lovenox Constipation Plan: Constipation management IRF protocol Home meds UTI Tx 10/29/19: Patient doing pretty well Incontinence continues UTI being treated Urology consulted Chronic pain Will start K pad Monitor hemoglobin 10/30/19: Kpad Detrol for incontinence Decreased motivation noted 10/31/19: Pain management with APAP Kpad to maintain Monitor BP and HR 11/01/19: Monitor creatinine Continue aggressive bowel regimen Continue aggressive therapy 11/02/19: Continue bowel regimen Complete UTI treatment Appreciate urology consultation with the addition of Detrol 11/03/19: Continue aggressive therapy Incontinence management Fall risk 11/04/19: Improved status Detrol doing well Fall risk prevention 11/05/19: Monitor strength Fall risk Monitor BP 11/06/19: Detrol helping Fall risk prevention Monitor chronic pain (1) Debility (2) Constipation Status: Acute (3) Urinary tract infection Status: Acute (4) Acute renal failure Status: Acute (5) Hyperglycemia Status: Acute (6) Bradyarrhythmia Status: Acute (7) Carcinoma of left breast Status: Chronic (8) Hypertension Status: Chronic (9) History of colon cancer (10) Hx of colonic polyps (11) Depression Status: Chronic (12) Right sided weakness Status: Acute (13) CVA (cerebral vascular accident) Status: Acute VANESSA LOPEZ DO Nov 06, 2019 11:52
--- NOTE | 2019-11-06 12:56 | Progress Note - Cardiology ---
Cardiology SOAP Progress Note Subjective: No cp or palp or syncope or shortness of breath at rest Gen weakness improving No n/v/d Objective: I&O/Vital Signs 11/06/19 11/06/19 06:22 07:36 Temp 37.2 Pulse 56 Resp 16 B/P (MAP) 125/58 (80) Pulse Ox 95 O2 Delivery Room Air Room Air 11/06/19 00:00 Intake Total 860 ml Balance 860 ml Weight (Pounds): 221 Weight (Ounces): 3.0 Weight (Calculated Kilograms): 100.305803 Constitutional: AAO x 3, well-developed, well-nourished Respiratory: chest is bilaterally symmetric, lungs clear to auscultation Cardiovascular: regular rate-rhythm, S1 and S2 Gastrointestional: soft, audible bowel sounds Extremities: no lower extremity edema bilateral Skin: No rash on exposed areas, No ulcerations on exposed areas Results/Procedures: Labs Laboratory Tests 11/05/19 16:03: Glucometer 170H A/P: Assessment: UTI sepsis, resolved. Acute on chronic renal insufficiency - improved Anemia, likely due to chronic kidney disease. Sinus bradycardia, albeit asymptomatic - improved following cessation of Atenolol. Echocardiogram of Oct 28, [address] Ha showed normal LV function with mild pulmonary hypertension. Mild diastolic dysfunction. Hypertension Reports h/o CVA in Apr 2019 for which she was evaluated at [facility] - details unknown H/O carotid arterial disease per CT of the head Apr 2019 History of colon cancer and breast cancer. Plan: Continue current regimen Monitor lab from time to time Adjust anti-hypertensive regimen as indicated SILVESTRE VAUGHAN MD FACP [facility] CCDS Nov 06, 2019 12:56
--- NOTE | 2019-11-06 13:01 | Physical Therapy Daily Note ---
PT Daily Note-Current Subjective Pt agreeable. Pt denies pain. Mental Status Patient Orientation: Person, Place, Situation Transfers SCALE: Activities may be completed with or without assistive devices. 8-Mbhcyhkokb-nqxjsdb completes the activity by him/herself with no assistance fr om a helper. 5-Set-up or Clean-up Assistance-helper sets up or cleans up; patient completes activity. [place] assists only prior to or following the activity. 4-Supervision or Touching Assistance-helper provides verbal cues and/or touching/steadying and/or contact guard assistance as patient completes activity. Assistance may be provided throughout the activity or intermittently. 3-Partial/Moderate Assistance-helper does LESS THAN HALF the effort. [place] lifts, holds or supports trunk or limbs, but provides less than half the effort. 2-Substantial/Maximal Assistance-helper does MORE THAN HALF the effort. [place] lifts or holds trunk or limbs and provides more than half the effort. 9-Mbrvmzauh-vfljhm does ALL the effort. Patient does none of the effort to complete the activity. Or, the assistance of 2 or more helpers is required for the patient to complete the activity. If activity was not attempted, code reason: 7-Patient Refused. 9-Not Applicable-not attempted and the patient did not perform the activity before the current illness, exacerbation or injury. 10-Not Attempted due to Environmental Limitations-(lack of equipment, weather restraints, etc.). 88-Not Attempted due to Medical Conditions or Safety Concerns. Weight Bearing Right Lower Extremity: Right Weight Bearing/Tolerated Left Lower Extremity: Left Weight Bearing/Tolerated Treatments Pt amb with FWW x 400ft with 1 rest break. Pt gait slow but steady. Pt used BR mod (I). Assessment Current Status: Good Progress Pt sp well. Pt balance steady throughout. Pt back to recliner with call light and all needs met. PT Short Term Goals Short Term Goals Time Frame: Nov 04, 2019 Sit to lyin Lying to sitting on side of be: 4 Sit to stand: 4 Walk 150 feet: 4 PT Custodial Goals [place] Operator Goals PT Custodial Goals Time Frame: Nov 18, 2019 Roll Left & Right (QC): 6 Sit to Lying (QC): 6 Lying-Sitting on Side/Bed(QC): 6 Sit to Stand (QC): 6 Chair/Qbv-ym-Picnt Xfer(QC): 6 Toilet Transfer (QC): 6 Car Transfer (QC): 6 Does the Patient Walk: Yes Walk 10 feet (QC): 6 Walk 50ft with 2 Turns (QC): 6 Walk 150 ft (QC): 6 Walking 10ft on Uneven Surface: 6 1 Step (curb) (QC): 5 4 Steps (QC): 5 12 Steps (QC): 9 Picking up an Object (QC): 4 Does the Pt use WC or Scooter?: No Wheel 50 feet with 2 turns (QC: 9 Wheel 150 feet: 9 PT Plan Treatment/Plan Treatment Plan: Continue Plan of Care Treatment Plan: Bed Mobility, Education, Functional Activity Odalys, Functional Strength, Group Therapy, Gait, Safety, Therapeutic Exercise, Transfers Treatment Duration: Nov 18, 2019 Frequency: At least 5 of 7 days/Wk (IRF) Estimated Hrs Per Day: 1.5 hours per day Patient and/or Family Agrees t: Yes Time/GCodes Time In: 825 Time Out: 848 Total Billed Treatment Time: 23 Total Billed Treatment 1, gait 15', FA 8' TIFFANY VANESSA CPTA Nov 06, 2019 13:01
[2019-11-06] MEDS: ENOXAPARIN 40 MG/0.4 ML (LOVENOX) SYR SC SCH (16:26)
[2019-11-06 18:00] VITALS: BP 132/59
[2019-11-06] MEDS: TOLTERODINE LA 4 MG (DETROL) CAP PO SCH (20:32)
[2019-11-06] MEDS: ACETAMINOPHEN 325 MG TABLET PO PRN (20:33)
--- NOTE | 2019-11-06 21:00 | NUR ---
ADMITS TO SLEEPING A LOT TODAY. STATES "WAS TIRED AND BORED". MEDICATED WITH TYLENOL FOR LEFT LEG AND HIP DISCOMFORT.
--- NOTE | 2019-11-07 01:27 | NUR ---
REPORT RECEIVED FROM RANDALL ZIMMER RN. ASSUMED CARE OF PT AT THIS TIME. AGREED WITH PREVIOUS ASSESSMENT.
[2019-11-07] MEDS: GLIMEPIRIDE 2 MG (AMARYL) TAB PO SCH (06:01)
[2019-11-07] MEDS: inSUlin ASPART (NovoLOG) 1 UNIT/0.01 ML (CHARGE PER UNIT) SC SCH ×4 (06:01→20:17)
[2019-11-07 06:10] VITALS: BP 134/63
[2019-11-07] MEDS: VALSARTAN 160 MG (DIOVAN) TABLET PO SCH (08:56)
[2019-11-07] MEDS: VITAMIN D3 25 MCG (1,000 UNITS) TABLET PO SCH (08:56)
[2019-11-07] MEDS: MAGNESIUM OXIDE (MAG-OX)400 MG TAB PO SCH ×2 (08:56→17:09)
[2019-11-07] MEDS: LEVETIRACETAM 500 MG (KEPPRA) TAB PO SCH ×2 (08:57→20:16)
[2019-11-07] MEDS: PANTOPRAZOLE 40 MG (PROTONIX) TAB PO SCH (08:57)
[2019-11-07] MEDS: SERTRALINE 50 MG (ZOLOFT) TABLET PO SCH (08:58)
[2019-11-07] MEDS: ASPIRIN E.C. 81 MG (ECOTRIN) TAB PO SCH (08:58)
[2019-11-07] MEDS: HYDROCHLOROTHIAZIDE 25 MG (HCTZ) TAB PO SCH (08:59)
[2019-11-07] MEDS: DOCUSATE SODIUM 100 MG (COLACE) CAP PO SCH ×2 (08:59→20:16)
[2019-11-07] MEDS: LETROZOLE 2.5 MG (FEMARA) TAB PO SCH (09:01)
[2019-11-07] MEDS: polyethylene glycoL POWDER 17 GM (MIRALAX) PACK PO SCH ×2 (09:11→20:17)
[2019-11-07] MEDS: ACETAMINOPHEN 325 MG TABLET PO PRN (09:12)
--- NOTE | 2019-11-07 10:46 | PM&R Progress Note ---
Subjective HPI/CC On Admission Date Seen by Provider: Nov 07, 2019 Time Seen by Provider: 10:45 Subjective/Events-last exam 11/07/19: Patient doing well Minimal motivation which is chronic No falls Pain improved 11/06/19: Doing well now Improving transfers to bathroom Sleeps a lot Less incontinence 11/05/19: Decreased motivation most of the time BM+ Sugars are ok No pain 11/04/19: Had some diarrhea yesterday holding laxatives Detrol is helping with the incontinence Overall feels like she is doing much better 11/03/19: Moving pretty well Bowels are moving Incontinence is improved on Detrol Taking Tylenol for knee pain K pad helps with the back pain 11/02/19: Bowels are pretty regular, even loose History of severe constipation requiring soap-suds enemas No major issues Detrol is really helping her incontinence Wants to go home soon 11/01/19: Creatinine remains stable at 1.5 Hgb 9.1 Bowels are moving pretty well with laxative Trying to get her hand to work better for her 10/31/19: Patient feels pretty well Kpad helping with back pain Motivation is low chronically BM yesterday Laxatives maintained 10/30/19: Left knee pain persists Daughter at bedside Sugars are ok Decreased motivation noted which appears to be chronic Kpad ordered for back pain Enema given on 10/26 and asked for supp and had BM yesterday PVR 100-200cc and she refused in/out catheter Detrol started 10/29/19: Amoxil treating the UTI Incontinence continues Appreciate urology consultation for continued incontinence from her stroke Chronic pain is an issue for her back and knee Hgb 8.9, Creatinine 1.28 Checked labs and meds Conferred with RN Reviewed therapy notes Review of Systems Musculoskeletal: back pain Neurological: Weakness Objective Exam Vital Signs Vital Signs Date Time Temp Pulse Resp B/P (MAP) Pulse Ox O2 Delivery O2 Flow Rate FiO2 11/07/19 08:52 Room Air 11/07/19 06:10 36.4 54 16 134/63 (86) 96 Capillary Refill : Less Than 3 SecondsLess Than 3 Seconds General Appearance: No Apparent Distress, WD/WN, Chronically ill, Obese HEENT: PERRL/EOMI, Normal ENT Inspection, Pharynx Normal Neck: Full Range of Motion, Normal Inspection, Non Tender, Supple, Carotid Bruit Respiratory: Chest Non Tender, Lungs Clear, Normal Breath Sounds, No Accessory Muscle Use, No Respiratory Distress Cardiovascular: Regular Rate, Rhythm, No Edema, No Gallop, No JVD, No Murmur, Normal Peripheral Pulses Gastrointestinal: Normal Bowel Sounds, No Organomegaly, No Pulsatile Mass, Non Tender, Soft Back: Normal Inspection, No CVA Tenderness, No Vertebral Tenderness Extremity: Normal Capillary Refill, Normal Inspection, Normal Range of Motion, Non Tender, No Calf Tenderness, No Pedal Edema Neurologic/Psychiatric: Alert, Oriented x3, No Motor/Sensory Deficits, Normal Mood/Affect, bulb grower II-XII Norm as Tested, Abnormal Gait, Motor Weakness (right arm and leg 4/5), Other (generalized weakness all extremities) Skin: Normal Color, Warm/Dry Lymphatic: No Adenopathy Results/Procedures Lab Patient resulted labs reviewed. FIM Transfers Therapy Code Descriptions/Definitions Functional [place] Measure: 0=Not Assessed/NA 4=Minimal Assistance 1=Total Assistance 5=Supervision or Setup 2=Maximal Assistance 6=Modified [place] 3=Moderate Assistance 7=Complete IndependenceSCALE: Activities may be completed with or without assistive devices. 0-Kiswgjbbcr-pedouxr completes the activity by him/herself with no assistance from a helper. 5-Set-up or Clean-up Assistance-helper sets up or cleans up; patient completes activity. [place] assists only prior to or following the activity. 4-Supervision or Touching Assistance-helper provides verbal cues and/or touching/steadying and/or contact guard assistance as patient completes a ctivity. Assistance may be provided throughout the activity or intermittently. 3-Partial/Moderate Assistance-helper does LESS THAN HALF the effort. [place] lifts, holds or supports trunk or limbs, but provides less than half the effort. 2-Substantial/Maximal Assistance-helper does MORE THAN HALF the effort. [place] lifts or holds trunk or limbs and provides more than half the effort. 9-Dlzwbtrzv-vfolzs does ALL the effort. Patient does none of the effort to complete the activity. Or, the assistance of 2 or more helpers is required for the patient to complete the activity. If activity was not attempted, code reason: 7-Patient Refused. 9-Not Applicable-not attempted and the patient did not perform the activity before the current illness, exacerbation or injury. 10-Not Attempted due to Environmental Limitations-(lack of equipment, weather restraints, etc.). 88-Not Attempted due to Medical Conditions or Safety Concerns. Roll Left to Right (QC): 6 Sit to Lying (QC): 6 Sit to Stand (QC): 6 Chair/Dap-it-Xzmoj Xfer(QC): 5 Car Transfer (QC): 3 Gait Training Does the Patient Walk?: Yes Distance: 300' x 2 Walk 10 feet (QC): 6 Walk 50 ft with 2 Turns(QC): 5 Walk 150 ft (QC): 5 Walking 10ft/uneven surface-QC: 5 Gait Persons Needed: 1 Gait Assistive Device: FWW Wheelchair Training Does the Pt Use a Wheelchair?: No Wheel 50 ft with 2 turns (QC): 9 Wheel 150 ft (QC): 9 Stair Training Stair Training: Handrails/: 2 handrails #of Steps: 4 1 Step (curb) (QC): 5 4 Steps (QC): 4 12 Steps (QC): 88 Stairs: Pattern: Step to Balance Picking up an Object (QC): 88 (unsafe to attempt) ADL-Treatment Eating (QC): 6 (Per pt report) Oral Hygiene (QC): 6 Shower/Bathe Self (QC): 6 Upper Body Dressing (QC): 6 Lower Body Dressing (QC): 6 On/Off Footwear (QC): 4 (SBA for balance while seated) Toileting Hygiene (QC): 6 Toilet Transfer (QC): 6 Assessment/Plan Assessment and Plan Assess & Plan/Chief Complaint Assessment: Debility UTI CARY on CKD Stage 3 Dehydration s/p IVF NIDDMII HTN History of Stroke with right sided weakness residual DVT ppx: Lovenox Constipation Plan: Constipation management IRF protocol Home meds UTI Tx 10/29/19: Patient doing pretty well Incontinence continues UTI being treated Urology consulted Chronic pain Will start K pad Monitor hemoglobin 10/30/19: Kpad Detrol for incontinence Decreased motivation noted 10/31/19: Pain management with APAP Kpad to maintain Monitor BP and HR 11/01/19: Monitor creatinine Continue aggressive bowel regimen Continue aggressive therapy 11/02/19: Continue bowel regimen Complete UTI treatment Appreciate urology consultation with the addition of Detrol 11/03/19: Continue aggressive therapy Incontinence management Fall risk 11/04/19: Improved status Detrol doing well Fall risk prevention 11/05/19: Monitor strength Fall risk Monitor BP 11/06/19: Detrol helping Fall risk prevention Monitor chronic pain 11/07/19: Monitor BP Check labs in am Fall risk prevention (1) Debility (2) Constipation Status: Acute (3) Urinary tract infection Status: Acute (4) Acute renal failure Status: Acute (5) Hyperglycemia Status: Acute (6) Bradyarrhythmia Status: Acute (7) Carcinoma of left breast Status: Chronic (8) Hypertension Status: Chronic (9) History of colon cancer (10) Hx of colonic polyps (11) Depression Status: Chronic (12) Right sided weakness Status: Acute (13) CVA (cerebral vascular accident) Status: Acute VANESSA LOPEZ DO Nov 07, 2019 10:46
[2019-11-07] MEDS ORDERED: DICLOFENAC 1% GEL 100 GM (VOLTAREN) TUBE TOP PRN (13:45)
--- NOTE | 2019-11-07 14:50 | Progress Note - Cardiology ---
Cardiology SOAP Progress Note Subjective: No new symptoms Gen weakness improving No cp or palp or syncope No n/v/d Objective: I&O/Vital Signs 11/07/19 11/07/19 06:10 08:52 Temp 36.4 Pulse 54 Resp 16 B/P (MAP) 134/63 (86) Pulse Ox 96 O2 Delivery Room Air Room Air 11/07/19 00:00 Intake Total 900 ml Balance 900 ml Weight (Pounds): 221 Weight (Ounces): 3.0 Weight (Calculated Kilograms): 100.895750 Constitutional: AAO x 3, well-developed, well-nourished Respiratory: chest is bilaterally symmetric, lungs clear to auscultation Cardiovascular: regular rate-rhythm, S1 and S2 Gastrointestional: soft, audible bowel sounds Extremities: no lower extremity edema bilateral Skin: No rash on exposed areas, No ulcerations on exposed areas A/P: Assessment: UTI sepsis, resolved. Acute on chronic renal insufficiency - improved Anemia, likely due to chronic kidney disease. Sinus bradycardia, albeit asymptomatic - improved following cessation of Atenolol. Echocardiogram of Oct 28, [address] Ha showed normal LV function with mild pulmonary hypertension. Mild diastolic dysfunction. Hypertension, controlled Reports h/o CVA in Apr 2019 for which she was evaluated at [facility] - details unknown H/O carotid arterial disease per CT of the head Apr 2019 History of colon cancer and breast cancer. Plan: Continue current regimen Adjust anti-hypertensive regimen as indicated Repeat labs SILVESTRE VAUGHAN MD FACP [facility] CCDS Nov 07, 2019 14:50
[2019-11-07] MEDS: ENOXAPARIN 40 MG/0.4 ML (LOVENOX) SYR SC SCH (17:09)
[2019-11-07 17:34] VITALS: BP 125/60
[2019-11-07] MEDS: TOLTERODINE LA 4 MG (DETROL) CAP PO SCH (20:16)
[2019-11-08 05:09] VITALS: BP 129/79
--- NOTE | 2019-11-08 05:33 | PM&R Progress Note ---
Subjective HPI/CC On Admission Date Seen by Provider: Nov 08, 2019 Time Seen by Provider: 08:00 Subjective/Events-last exam 11/08/19: Labs are really good, creatinine 1.24 Minimal motivation but does participate in therapy Wants to go home soon 11/07/19: Patient doing well Minimal motivation which is chronic No falls Pain improved 11/06/19: Doing well now Improving transfers to bathroom Sleeps a lot Less incontinence 11/05/19: Decreased motivation most of the time BM+ Sugars are ok No pain 11/04/19: Had some diarrhea yesterday holding laxatives Detrol is helping with the incontinence Overall feels like she is doing much better 11/03/19: Moving pretty well Bowels are moving Incontinence is improved on Detrol Taking Tylenol for knee pain K pad helps with the back pain 11/02/19: Bowels are pretty regular, even loose History of severe constipation requiring soap-suds enemas No major issues Detrol is really helping her incontinence Wants to go home soon 11/01/19: Creatinine remains stable at 1.5 Hgb 9.1 Bowels are moving pretty well with laxative Trying to get her hand to work better for her 10/31/19: Patient feels pretty well Kpad helping with back pain Motivation is low chronically BM yesterday Laxatives maintained 10/30/19: Left knee pain persists Daughter at bedside Sugars are ok Decreased motivation noted which appears to be chronic Kpad ordered for back pain Enema given on 10/26 and asked for supp and had BM yesterday PVR 100-200cc and she refused in/out catheter Detrol started 10/29/19: Amoxil treating the UTI Incontinence continues Appreciate urology consultation for continued incontinence from her stroke Chronic pain is an issue for her back and knee Hgb 8.9, Creatinine 1.28 Checked labs and meds Conferred with RN Reviewed therapy notes Review of Systems General: Fatigue, Malaise Neurological: Weakness Objective Exam Vital Signs Vital Signs Date Time Temp Pulse Resp B/P (MAP) Pulse Ox O2 Delivery O2 Flow Rate FiO2 11/08/19 16:52 36.5 57 16 146/63 (90) 95 Room Air Capillary Refill : Less Than 3 SecondsLess Than 3 Seconds General Appearance: No Apparent Distress, WD/WN, Chronically ill, Obese HEENT: PERRL/EOMI, Normal ENT Inspection, Pharynx Normal Neck: Full Range of Motion, Normal Inspection, Non Tender, Supple, Carotid Bruit Respiratory: Chest Non Tender, Lungs Clear, Normal Breath Sounds, No Accessory Muscle Use, No Respiratory Distress Cardiovascular: Regular Rate, Rhythm, No Edema, No Gallop, No JVD, No Murmur, Normal Peripheral Pulses Gastrointestinal: Normal Bowel Sounds, No Organomegaly, No Pulsatile Mass, Non Tender, Soft Back: Normal Inspection, No CVA Tenderness, No Vertebral Tenderness Extremity: Normal Capillary Refill, Normal Inspection, Normal Range of Motion, Non Tender, No Calf Tenderness, No Pedal Edema Neurologic/Psychiatric: Alert, Oriented x3, No Motor/Sensory Deficits, Normal Mood/Affect, tassel maker II-XII Norm as Tested, Abnormal Gait, Motor Weakness (right arm and leg 4/5), Other (generalized weakness all extremities) Skin: Normal Color, Warm/Dry Lymphatic: No Adenopathy Results/Procedures Lab Laboratory Tests 11/08/19 05:34 Patient resulted labs reviewed. FIM Transfers Therapy Code Descriptions/Definitions Functional [place] Measure: 0=Not Assessed/NA 4=Minimal Assistance 1=Total Assistance 5=Supervision or Setup 2=Maximal Assistance 6=Modified [place] 3=Moderate Assistance 7=Complete IndependenceSCALE: Activities may be completed with or without assistive devices. 1-Bxqkehqtvo-mheuiji completes the activity by him/herself with no assistance from a helper. 5-Set-up or Clean-up Assistance-helper sets up or cleans up; patient completes activity. [place] assists only prior to or following the activity. 4-Supervision or Touching Assistance-helper provides verbal cues and/or touching/steadying and/or contact guard assistance as patient completes activity. Assistance may be provided throughout the activity or intermittently. 3-Partial/Moderate Assistance-helper does LESS THAN HALF the effort. [place] lifts, holds or supports trunk or limbs, but provides less than half the effort. 2-Substantial/Maximal Assistance-helper does MORE THAN HALF the effort. [place] lifts or holds trunk or limbs and provides more than half the effort. 2-Acnpfgybz-vlpaqz does ALL the effort. Patient does none of the effort to complete the activity. Or, the assistance of 2 or more helpers is required for the patient to complete the activity. If activity was not attempted, code reason: 7-Patient Refused. 9-Not Applicable-not attempted and the patient did not perform the activity before the current illness, exacerbation or injury. 10-Not Attempted due to Environmental Limitations-(lack of equipment, weather restraints, etc.). 88-Not Attempted due to Medical Conditions or Safety Concerns. Roll Left to Right (QC): 6 Sit to Lying (QC): 6 Sit to Stand (QC): 6 Chair/Ueh-pw-Teejh Xfer(QC): 5 Car Transfer (QC): 3 Gait Training Does the Patient Walk?: Yes Distance: 300' x 2 Walk 10 feet (QC): 6 Walk 50 ft with 2 Turns(QC): 5 Walk 150 ft (QC): 5 Walking 10ft/uneven surface-QC: 5 Gait Persons Needed: 1 Gait Assistive Device: FWW Wheelchair Training Does the Pt Use a Wheelchair?: No Wheel 50 ft with 2 turns (QC): 9 Wheel 150 ft (QC): 9 Stair Training Stair Training: Handrails/: 2 handrails #of Steps: 4 1 Step (curb) (QC): 5 4 Steps (QC): 4 12 Steps (QC): 88 Stairs: Pattern: Step to Balance Picking up an Object (QC): 88 (unsafe to attempt) ADL-Treatment Eating (QC): 6 (Per pt report) Oral Hygiene (QC): 6 Shower/Bathe Self (QC): 6 Upper Body Dressing (QC): 6 Lower Body Dressing (QC): 6 On/Off Footwear (QC): 4 (SBA for balance while seated) Toileting Hygiene (QC): 6 Toilet Transfer (QC): 6 Assessment/Plan Assessment and Plan Assess & Plan/Chief Complaint Assessment: Debility UTI CARY on CKD Stage 3 Dehydration s/p IVF NIDDMII HTN History of Stroke with right sided weakness residual DVT ppx: Lovenox Constipation Plan: Constipation management IRF protocol Home meds UTI Tx 10/29/19: Patient doing pretty well Incontinence continues UTI being treated Urology consulted Chronic pain Will start K pad Monitor hemoglobin 10/30/19: Kpad Detrol for incontinence Decreased motivation noted 10/31/19: Pain management with APAP Kpad to maintain Monitor BP and HR 11/01/19: Monitor creatinine Continue aggressive bowel regimen Continue aggressive therapy 11/02/19: Continue bowel regimen Complete UTI treatment Appreciate urology consultation with the addition of Detrol 11/03/19: Continue aggressive therapy Incontinence management Fall risk 11/04/19: Improved status Detrol doing well Fall risk prevention 11/05/19: Monitor strength Fall risk Monitor BP 11/06/19: Detrol helping Fall risk prevention Monitor chronic pain 11/07/19: Monitor BP Check labs in am Fall risk prevention 11/07/19: Continue aggressive treatment Try to motivate more rather than sleeping all the time Discharge planned soon (1) Debility (2) Constipation Status: Acute (3) Urinary tract infection Status: Acute (4) Acute renal failure Status: Acute (5) Hyperglycemia Status: Acute (6) Bradyarrhythmia Status: Acute (7) Carcinoma of left breast Status: Chronic (8) Hypertension Status: Chronic (9) History of colon cancer (10) Hx of colonic polyps (11) Depression Status: Chronic (12) Right sided weakness Status: Acute (13) CVA (cerebral vascular accident) Status: Acute VANESSA LOPEZ DO Nov 08, 2019 05:33
[2019-11-08 05:45] LABS: BASOPHILS % (AUTO) 1 % (0-10); EOSINOPHILS # (AUTO) 0.2 10^3/uL (0.0-0.3); EOSINOPHILS % (AUTO) 5 % (0-10); HEMATOCRIT 25 % (35-52); HEMOGLOBIN 8.4 G/DL (11.5-16.0); LYMPHOCYTES # (AUTO) 0.7 X 10^3 (1.0-4.0); LYMPHOCYTES % (AUTO) 21 % (12-44); MEAN CORPUSCULAR HEMOGLOBIN 32 PG (25-34); MEAN CORPUSCULAR HGB CONC 33 G/DL (32-36); MEAN CORPUSCULAR VOLUME 96 FL (80-99); MEAN PLATELET VOLUME 9.4 FL (7.4-10.4); MONOCYTES # (AUTO) 0.4 X 10^3 (0.0-1.0); MONOCYTES % (AUTO) 12 % (0-12); NEUTROPHILS # (AUTO) 2.2 X 10^3 (1.8-7.8); NEUTROPHILS % (AUTO) 62 % (42-75); PLATELET COUNT 277 10^3/uL (130-400); RED CELL DISTRIBUTION WIDTH 12.7 % (10.0-14.5); WHITE BLOOD COUNT 3.5 10^3/uL (4.3-11.0)
[2019-11-08] MEDS: GLIMEPIRIDE 2 MG (AMARYL) TAB PO SCH (06:08)
[2019-11-08 06:13] LABS: CREATININE SERUM 1.24 MG/DL (0.60-1.30); MAGNESIUM 1.6 MG/DL (1.6-2.4); POTASSIUM 4.6 MMOL/L (3.6-5.0)
[2019-11-08] MEDS: inSUlin ASPART (NovoLOG) 1 UNIT/0.01 ML (CHARGE PER UNIT) SC SCH ×4 (06:13→20:33)
[2019-11-08] MEDS: MAGNESIUM OXIDE (MAG-OX)400 MG TAB PO SCH ×2 (08:03→16:59)
[2019-11-08] MEDS: VITAMIN D3 25 MCG (1,000 UNITS) TABLET PO SCH (08:03)
[2019-11-08] MEDS: ASPIRIN E.C. 81 MG (ECOTRIN) TAB PO SCH (08:03)
[2019-11-08] MEDS: HYDROCHLOROTHIAZIDE 25 MG (HCTZ) TAB PO SCH (08:03)
[2019-11-08] MEDS: VALSARTAN 160 MG (DIOVAN) TABLET PO SCH (08:03)
[2019-11-08] MEDS: DOCUSATE SODIUM 100 MG (COLACE) CAP PO SCH ×2 (08:04→20:32)
[2019-11-08] MEDS: SERTRALINE 50 MG (ZOLOFT) TABLET PO SCH (08:04)
[2019-11-08] MEDS: PANTOPRAZOLE 40 MG (PROTONIX) TAB PO SCH (08:04)
[2019-11-08] MEDS: LEVETIRACETAM 500 MG (KEPPRA) TAB PO SCH ×2 (08:05→20:32)
[2019-11-08] MEDS: LETROZOLE 2.5 MG (FEMARA) TAB PO SCH (08:06)
[2019-11-08] MEDS: polyethylene glycoL POWDER 17 GM (MIRALAX) PACK PO SCH ×2 (08:10→20:31)
--- NOTE | 2019-11-08 09:40 | Physical Therapy Daily Note ---
PT Daily Note-Current Subjective Agrees to rx. Feeling better Pain Location: No Pain Reported Mental Status Patient Orientation: Normal For Age Transfers SCALE: Activities may be completed with or without assistive devices. 1-Wcyseudimh-hebiyph completes the activity by him/herself with no assistance from a helper. 5-Set-up or Clean-up Assistance-helper sets up or cleans up; patient completes activity. [place] assists only prior to or following the activity. 4-Supervision or Touching Assistance-helper provides verbal cues and/or touching/steadying and/or contact guard assistance as patient completes activit y. Assistance may be provided throughout the activity or intermittently. 3-Partial/Moderate Assistance-helper does LESS THAN HALF the effort. [place] lifts, holds or supports trunk or limbs, but provides less than half the effort. 2-Substantial/Maximal Assistance-helper does MORE THAN HALF the effort. [place] lifts or holds trunk or limbs and provides more than half the effort. 9-Tatqharns-yoxznr does ALL the effort. Patient does none of the effort to complete the activity. Or, the assistance of 2 or more helpers is required for the patient to complete the activity. If activity was not attempted, code reason: 7-Patient Refused. 9-Not Applicable-not attempted and the patient did not perform the activity before the current illness, exacerbation or injury. 10-Not Attempted due to Environmental Limitations-(lack of equipment, weather restraints, etc.). 88-Not Attempted due to Medical Conditions or Safety Concerns. Roll Left & Right (QC): 6 Sit to Lying (QC): 6 Lying to Sitting/Side of Bed(Q: 6 Sit to Stand (QC): 6 Chair/Nad-cf-Djysh Xfer(QC): 6 Toilet Transfer (QC): 6 Car Transfer (QC): 5 needs cuing to sit in car seat with both feet on floor before putting a foot in, Weight Bearing Right Lower Extremity: Right Weight Bearing/Tolerated Left Lower Extremity: Left Weight Bearing/Tolerated Gait Training Does the Patient Walk?: Yes Walk 10 feet (QC): 6 Walk 50 ft with 2 Turns(QC): 6 Walk 150 ft (QC): 6 Walking 10ft/uneven surface-QC: 5 Gait Persons Needed: 0 Gait Assistive Device: FWW slow, flexed at trunk, head down Stair Training Stair Training: Handrails/: 2 handrails #of Steps: 4 1 Step (curb) (QC): 4 4 Steps (QC): 5 12 Steps (QC): 88 Stairs: Pattern: Step to Balance Picking up an Object (QC): 88 Exercises Seated Therapy Exercises: Ankle pumps, Sit to stand, Long arc quads, Hip flexion Seated Reps: 12 Assessment Current Status: Good Progress PT Short Term Goals Short Term Goals Time Frame: Nov 04, 2019 Sit to lyin Lying to sitting on side of be: 4 Sit to stand: 4 Walk 150 feet: 4 PT Crucible Packer Goals Assisted Goals PT Assisted Goals Time Frame: Nov 18, 2019 Roll Left & Right (QC): 6 Sit to Lying (QC): 6 Lying-Sitting on Side/Bed(QC): 6 Sit to Stand (QC): 6 Chair/Suy-vk-Rrkmz Xfer(QC): 6 Toilet Transfer (QC): 6 Car Transfer (QC): 6 Does the Patient Walk: Yes Walk 10 feet (QC): 6 Walk 50ft with 2 Turns (QC): 6 Walk 150 ft (QC): 6 Walking 10ft on Uneven Surface: 6 1 Step (curb) (QC): 5 4 Steps (QC): 5 12 Steps (QC): 9 Picking up an Object (QC): 4 Does the Pt use WC or Scooter?: No Wheel 50 feet with 2 turns (QC: 9 Wheel 150 feet: 9 PT Plan Treatment/Plan Treatment Plan: Continue Plan of Care Treatment Plan: Bed Mobility, Education, Functional Activity Odalys, Functional Strength, Group Therapy, Gait, Safety, Therapeutic Exercise, Transfers Treatment Duration: Nov 18, 2019 Frequency: At least 5 of 7 days/Wk (IRF) Estimated Hrs Per Day: 1.5 hours per day Patient and/or Family Agrees t: Yes Safety Risks/Education Patient Education: Gait Training, Transfer Techniques, Steps, Correct Positio camille, Disease Process, Safety Issues Teaching Recipient: Patient Teaching Methods: Demonstration, Discussion Response to Teaching: Verbalize Understanding, Return Demonstration, Reinforcement Needed Time/GCodes Time In: 845 Time Out: 930 Total Billed Treatment Time: 45 Total Billed Treatment 1,FA45m ANDREZ KING JOB DEVELOPER [employer] Nov 08, 2019 09:40
--- NOTE | 2019-11-08 13:12 | NUR ---
CM/SS DISCHARGE PLANNING Patient is prepared to discharge tomorrow, she has had open communication with her family regarding what they were doing before and what they will continue to do after her return. Patient reports arthur discussion with CARLITO/Patience who was coming daily at least twice, and Patience apparently indicated she did not wish to continue to come early a.m. to ensure patient had breakfast and took a.m. Rx. Patient agrees this a.m. visit is not necessary at this time, that she is in a much better physical and mental state after this hospitalization. Patient has described more than once that she felt "her time was up" just prior to coming to hospital. Fishery Biologist suggested that they make an alternate arrangement that CARLITO calls her to check in rather than come over. Additionally, music writer requested that HHC orders include Rx set up and monitor. HHC: Presented HHC agencies in patient service area according to Medicare Compare, patient confirmed she wanted [facility] due to a good experience in the past with them. Referral completed, they will open services Friday, RN PT OT. Patient is capable to self-direct her transport home, she has her own cell phone and has been in contact with her family as desired. IMM2 presented, signed, charted. No other discharge interventions unless situation changes to warrant.
--- NOTE | 2019-11-08 13:20 | Occupational Ther Daily Note ---
OT Current Status-Daily Note Subjective Pt in reclining chair. No c/o pain this am. Pt agreeable to therapy. QC completed this date. Mental Status/Objective Patient Orientation: Person, Place ADL-Treatment Therapy Code Descriptions/Definitions Functional [place] Measure: 0=Not Assessed/NA 4=Minimal Assistance 1=Total Assistance 5=Supervision or Setup 2=Maximal Assistance 6=Modified [place] 3=Moderate Assistance 7=Complete IndependenceSCALE: Activities may be completed with or without assistive devices. 2-Giufwbjkdh-eqqkejv completes the activity by him/herself with no assistance from a helper. 5-Set-up or Clean-up Assistance-helper sets up or cleans up; patient completes activity. [place] assists only prior to or following the activity. 4-Supervision or Touching Assistance-helper provides verbal cues and/or touching/steadying and/or contact guard assistance as patient completes activity. Assistance may be provided throughout the activity or intermittently. 3-Partial/Moderate Assistance-helper does LESS THAN HALF the effort. [place] lifts, holds or supports trunk or limbs, but provides less than half the effort. 2-Substantial/Maximal Assistance-helper does MORE THAN HALF the effort. [place] lifts or holds trunk or limbs and provides more than half the effort. 7-Ttzcdrtng-nnvdtz does ALL the effort. Patient does none of the effort to complete the activity. Or, the assistance of 2 or more helpers is required for the patient to complete the activity. If activity was not attempted, code reason: 7-Patient Refused. 9-Not Applicable-not attempted and the patient did not perform the activity before the current illness, exacerbation or injury. 10-Not Attempted due to Environmental Limitations-(lack of equipment, weather restraints, etc.). 88-Not Attempted due to Medical Conditions or Safety Concerns. Eating (QC): 6 (Per pt report) Oral Hygiene (QC): 6 (Per pt report) Shower/Bathe Self (QC): 6 (While seated) Upper Body Dressing (QC): 6 Lower Body Dressing (QC): 6 On/Off Footwear: 6 (While seated) Toileting Hygiene (QC): 6 Toilet Transfer (QC): 6 Pt in reclining chair, agreeable to therapy. [facility] with walker and Mod I, with some safety concerns. OT provided skilled education on home safety and importance of home safety. Pt verbalized unders tanding. She selected clothing and ambulated to bathroom with walker and Mod I. Pt utilized toilet and completed thea cleansing. She transferred to shower with walker and Mod I. Once seated on shower chair, pt. doffed house dress, hospital gown, and slipper socks independently. She bathed and dried independently while seated. After shower, pt donned shirt, pants, slipper socks, and clean brief. Pt. ambulated to reclining chair with walker and Mod I. Noted that pt takes extra time to complete all tasks due to fatigue. She was in chair with call light at the end of session. All needs met. Education OT Patient Education: Correct positioning, Energy conservation, Modified ADL techniques, Progress toward Goal/Update tx plan, Purpose of tx/functional activities, Reviewed precautions, Rehab process, Safety issues, Transfer techniques Teaching Recipient: Patient Teaching Methods: Demonstration, Discussion Response to Teaching: Verbalize Understanding, Return Demonstration OT Short Term Goals Short Term Goals Time Frame: Nov 04, 2019 Eatin Oral hygiene: 6 Toileting hygiene: 4 Shower/bathe self: 4 Upper body dressin Lower body dressin Putting on/taking off footwear: 4 OT Spool Sorter Goals Spool Sorter Goals Time Frame: Nov 11, 2019 Eating (QC): 6 Oral Hygiene (QC): 6 Toileting Hygiene (QC): 6 Shower/Bathe Self (QC): 6 Upper Body Dressing (QC): 6 Lower Body Dressing (QC): 6 On/Off Footwear (QC): 6 Additional Goals: 1-Demonstrate ADL Tasks, 2-Verbalize Understanding, 3- ImproveStrength/Odalys 1=Demonstrate adherence to instructed precautions during ADL tasks. 2=Patient will verbalize/demonstrate understanding of assistive devices/mod ifications for ADL. 3=Patient will improve strength/tolerance for activity to enable patient to perform ADL's. OT Education/Plan Problem List/Assessment Assessment: Decreased Activ Tolerance Discharge Recommendations Plan/Recommendations: Continue POC Therapy Discharge Recommendati: Home & Family Treatment Plan/Plan of Care Treatment,Training & Education: Yes Patient would benefit from OT for education, treatment and training to promote independence in ADL's, mobility, safety and/or upper extremity function for ADL's. Plan of Care: ADL Retraining, Concurrent Therapy, Functional Mobility, Group Exercise/Act as Ind, UE Funct Exercise/Act Treatment Duration: Nov 11, 2019 Frequency: At least 5 of 7 days/Wk (IRF) Estimated Hrs Per Day: 1.5 hours per day Agreement: Yes Rehab Potential: Good Time/GCodes Start Time: 10:15 Stop Time: 11:15 Total Time Billed (hr/min): 60 Billed Treatment Time 1, ADL 4 (60 minutes) KEESHA AUGUSTIN OT Nov 08, 2019 13:20
--- NOTE | 2019-11-08 13:44 | Physical Therapy Daily Note ---
PT Daily Note-Current Subjective Pt. agrees to Rx. States she would like to do the car TRF again as she feels she can do a lot better than she did this morning. Pain Location: No Pain Reported Mental Status Patient Orientation: Normal For Age Transfers SCALE: Activities may be completed with or without assistive devices. 9-Mxwupjvyqq-canqjat completes the activity by him/herself with no assistance from a helper. 5-Set-up or Clean-up Assistance-helper sets up or cleans up; patient completes activity. [place] assists only prior to or following the activity. 4-Supervision or Touching Assistance-helper provides verbal cues and/or touching/steadying and/or contact guard assistance as patient completes activity. Assistance may be provided throughout the activity or intermittently. 3-Partial/Moderate Assistance-helper does LESS THAN HALF the effort. [place] lifts, holds or supports trunk or limbs, but provides less than half the effort. 2-Substantial/Maximal Assistance-helper does MORE THAN HALF the effort. [place] lifts or holds trunk or limbs and provides more than half the effort. 9-Eglbkkmiz-znprto does ALL the effort. Patient does none of the effort to complete the activity. Or, the assistance of 2 or more helpers is required for the patient to complete the activity. If activity was not attempted, code reason: 7-Patient Refused. 9-Not Applicable-not attempted and the patient did not perform the activity before the current illness, exacerbation or injury. 10-Not Attempted due to Environmental Limitations-(lack of equipment, weather restraints, etc.). 88-Not Attempted due to Medical Conditions or Safety Concerns. Sit to Stand (QC): 6 Car Transfer (QC): 6 (slow, taking time and effort to bring RLE up into the car simulator) Weight Bearing Right Lower Extremity: Right Weight Bearing/Tolerated Left Lower Extremity: Left Weight Bearing/Tolerated Gait Training Does the Patient Walk?: Yes Gait Assistive Device: FWW 200ft, 150 ft, 50 ft Mod I /SBA no LOB Exercises Seated Therapy Exercises: Ankle pumps, Sit to stand, Long arc quads, Hip flexion, Hip abd/add Seated Reps: 15 Treatments emphasis on chair approaches /turns/ sits with safe technique. Pt. did this safely with improved technique Assessment Current Status: Good Progress PT Short Term Goals Short Term Goals Time Frame: Nov 04, 2019 Sit to lyin Lying to sitting on side of be: 4 Sit to stand: 4 Walk 150 feet: 4 PT Fdc Goals Fdc Goals PT Asset Protection Assistant Goals Time Frame: Nov 18, 2019 Roll Left & Right (QC): 6 Sit to Lying (QC): 6 Lying-Sitting on Side/Bed(QC): 6 Sit to Stand (QC): 6 Chair/Jva-nx-Hwcpb Xfer(QC): 6 Toilet Transfer (QC): 6 Car Transfer (QC): 6 Does the Patient Walk: Yes Walk 10 feet (QC): 6 Walk 50ft with 2 Turns (QC): 6 Walk 150 ft (QC): 6 Walking 10ft on Uneven Surface: 6 1 Step (curb) (QC): 5 4 Steps (QC): 5 12 Steps (QC): 9 Picking up an Object (QC): 4 Does the Pt use WC or Scooter?: No Wheel 50 feet with 2 turns (QC: 9 Wheel 150 feet: 9 PT Plan Treatment/Plan Treatment Plan: Continue Plan of Care Treatment Plan: Bed Mobility, Education, Functional Activity Odalys, Functional Strength, Group Therapy, Gait, Safety, Therapeutic Exercise, Transfers Treatment Duration: Nov 18, 2019 Frequency: At least 5 of 7 days/Wk (IRF) Estimated Hrs Per Day: 1.5 hours per day Patient and/or Family Agrees t: Yes Safety Risks/Education Patient Education: Gait Training, Transfer Techniques, Correct Positioning, Disease Process, Safety Issues Teaching Recipient: Patient Teaching Methods: Demonstration, Discussion Response to Teaching: Verbalize Understanding, Return Demonstration, Reinforcement Needed Time/GCodes Time In: 1300 Time Out: 1345 Total Billed Treatment Time: 45 Total Billed Treatment 1,GT15m,FA15m,EX15m ANDREZ KING 4 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
--- NOTE | 2019-11-08 14:44 | Occupational Ther Daily Note ---
OT Current Status-Daily Note Subjective Pt in reclining chair with nursing in the room when OT entered. No c/o pain. Pt agreeable to therapy. Mental Status/Objective Patient Orientation: Person, Place, Time, Situation ADL-Treatment Therapy Code Descriptions/Definitions Functional [place] Measure: 0=Not Assessed/NA 4=Minimal Assistance 1=Total Assistance 5=Supervision or Setup 2=Maximal Assistance 6=Modified [place] 3=Moderate Assistance 7=Complete IndependenceSCALE: Activities may be completed with or without assistive devices. 5-Zpnstrapru-zvksoyz completes the activity by him/herself with no assistance from a helper. 5-Set-up or Clean-up Assistance-helper sets up or cleans up; patient completes a ctivity. [place] assists only prior to or following the activity. 4-Supervision or Touching Assistance-helper provides verbal cues and/or touching/steadying and/or contact guard assistance as patient completes activity. Assistance may be provided throughout the activity or intermittently. 3-Partial/Moderate Assistance-helper does LESS THAN HALF the effort. [place] lifts, holds or supports trunk or limbs, but provides less than half the effort. 2-Substantial/Maximal Assistance-helper does MORE THAN HALF the effort. [place] lifts or holds trunk or limbs and provides more than half the effort. 5-Gtgxhxzdw-tligyy does ALL the effort. Patient does none of the effort to complete the activity. Or, the assistance of 2 or more helpers is required for the patient to complete the activity. If activity was not attempted, code reason: 7-Patient Refused. 9-Not Applicable-not attempted and the patient did not perform the activity before the current illness, exacerbation or injury. 10-Not Attempted due to Environmental Limitations-(lack of equipment, weather restraints, etc.). 88-Not Attempted due to Medical Conditions or Safety Concerns. Other Treatment Pt ambulated to therapy gym independently with walker and extra time. Once in the gym, pt issued yellow theraband and yellow therapy sponge. OT provided skilled education on HEP including proper placement of B UE and motions to utilize targeted muscle groups. Pt completed 3 sets of 10 reps of 6 exercises (B shoulder abduction, B shoulder diagonal abduction, B biceps curls, and B hand scheduling specialist strength). Pt able to verbalize understanding of exercises and demonstrate recall of proper position and movement. Pt. ambulated back to room with walker. She was seated in reclining chair with phone and call light. All needs met. Education OT Patient Education: Correct positioning, Energy conservation, Exercise program, Home exercise program, Progress toward Goal/Update tx plan, Purpose of tx/functional activities, Reviewed precautions, Rehab process, Safety issues, Transfer techniques Teaching Recipient: Patient Teaching Methods: Demonstration, Discussion Response to Teaching: Verbalize Understanding, Return Demonstration OT Short Term Goals Short Term Goals Time Frame: Nov 04, 2019 Eatin Oral hygiene: 6 Toileting hygiene: 4 Shower/bathe self: 4 Upper body dressin Lower body dressin Putting on/taking off footwear: 4 OT Balance Sheet Analyst Goals Balance Sheet Analyst Goals Time Frame: Nov 11, 2019 Eating (QC): 6 Oral Hygiene (QC): 6 Toileting Hygiene (QC): 6 Shower/Bathe Self (QC): 6 Upper Body Dressing (QC): 6 Lower Body Dressing (QC): 6 On/Off Footwear (QC): 6 Additional Goals: 1-Demonstrate ADL Tasks, 2-Verbalize Understanding, 3- ImproveStrength/Odalys 1=Demonstrate adherence to instructed precautions during ADL tasks. 2=Patient will verbalize/demonstrate understanding of assistive devices/modifications for ADL. 3=Patient will improve strength/tolerance for activity to enable patient to perform ADL's. OT Education/Plan Problem List/Assessment Assessment: Decreased Activ Tolerance Discharge Recommendations Plan/Recommendations: Continue POC Therapy Discharge Recommendati: Home & Family Treatment Plan/Plan of Care Treatment,Training & Education: Yes Patient would benefit from OT for education, treatment and training to promote independence in ADL's, mobility, safety and/or upper extremity function for ADL's. Plan of Care: ADL Retraining, Concurrent Therapy, Functional Mobility, Group Exercise/Act as Ind, UE Funct Exercise/Act Treatment Duration: Nov 11, 2019 Frequency: At least 5 of 7 days/Wk (IRF) Estimated Hrs Per Day: 1.5 hours per day Agreement: Yes Rehab Potential: Good Time/GCodes Start Time: 14:00 Stop Time: 14:30 Total Time Billed (hr/min): 30 Billed Treatment Time 1, EX 2 (30 minutes) KEESHA AUGUSTIN OT Nov 08, 2019 14:44
[2019-11-08 16:52] VITALS: BP 146/63
[2019-11-08] MEDS: ENOXAPARIN 40 MG/0.4 ML (LOVENOX) SYR SC SCH (16:59)
[2019-11-08] MEDS: TOLTERODINE LA 4 MG (DETROL) CAP PO SCH (20:31)
[2019-11-08] MEDS ORDERED: TOLTA4 PO (20:37)
--- NOTE | 2019-11-08 20:39 | D/C HH Face to Face Order ---
D/C Face to Face Orders Reconcile Patient Problems Problems Reviewed?: Yes Instructions for Patient Via [facility], Patient Instructions/FollowUp: PCP 1 week Physician to follow Patient: Ilene Discharge Diet for Home: ADA Diet Patient Problems: Weakness DM Falls Patient Data-Allergies,Ht & Wt Patient Allergies: Coded Allergies: No Known Drug Allergies (Unverified , 10/29/18) Height (Feet): 5 Height (Inches): 3.00 Weight (Pounds): 221 Weight (Ounces): 3.0 Home Health Need/Face to Face Date of Face to Face: Nov 08, 2019 Clinical Findings: Generalized weakness and fatigue, Instability, Muscle weakness, Unsteady gait I have seen Pt bhaf-qd-[id number]: Yes Discharged To: Home Diagnosis/Conditions: Debility Patient is Homebound due to: Jose fall risk due to instabilty, Muscle weakness Homebound Status Due to the above stated illness, injury or surgical procedure (medical condition or diagnosis) and associated clinical findings, the patient is homebound because of his/her inability to leave home except with aid of a supportive device and/or person AND leaving the home requires a considerable and taxing effort or is medically contraindicated. Pt req the following assistanc: Walker Home Health Nursing Orders Home Health Services Order: Nursing Services, Reservation Clerk-Evaluate & Treat, Physical Therapy-Evaluate & Treat Certify Stmt I certify that this patient is under my care and that I, a nurse practitioner or a physician; a radiology practitioner assistant working with me, had a face to face encounter that - meets the physician face to face encounter requirements with this patient as dated. VANESSA LOPEZ DO Nov 08, 2019 20:39
[2019-11-09 05:31] VITALS: BP 128/58
[2019-11-09] MEDS: inSUlin ASPART (NovoLOG) 1 UNIT/0.01 ML (CHARGE PER UNIT) SC SCH ×2 (06:25→11:32)
[2019-11-09] MEDS: GLIMEPIRIDE 2 MG (AMARYL) TAB PO SCH (06:28)
[2019-11-09 08:00] VITALS: BP 114/65
--- NOTE | 2019-11-09 08:42 | PM&R Progress Note ---
Subjective HPI/CC On Admission Date Seen by Provider: Nov 09, 2019 Time Seen by Provider: 09:00 Subjective/Events-last exam 11/09/19: DC 11/08/19: Labs are really good, creatinine 1.24 Minimal motivation but does participate in therapy Wants to go home soon 11/07/19: Patient doing well Minimal motivation which is chronic No falls Pain improved 11/06/19: Doing well now Improving transfers to bathroom Sleeps a lot Less incontinence 11/05/19: Decreased motivation most of the time BM+ Sugars are ok No pain 11/04/19: Had some diarrhea yesterday holding laxatives Detrol is helping with the incontinence Overall feels like she is doing much better 11/03/19: Moving pretty well Bowels are moving Incontinence is improved on Detrol Taking Tylenol for knee pain K pad helps with the back pain 11/02/19: Bowels are pretty regular, even loose History of severe constipation requiring soap-suds enemas No major issues Detrol is really helping her incontinence Wants to go home soon 11/01/19: Creatinine remains stable at 1.5 Hgb 9.1 Bowels are moving pretty well with laxative Trying to get her hand to work better for her 10/31/19: Patient feels pretty well Kpad helping with back pain Motivation is low chronically BM yesterday Laxatives maintained 10/30/19: Left knee pain persists Daughter at bedside Sugars are ok Decreased motivation noted which appears to be chronic Kpad ordered for back pain Enema given on 10/26 and asked for supp and had BM yesterday PVR 100-200cc and she refused in/out catheter Detrol started 10/29/19: Amoxil treating the UTI Incontinence continues Appreciate urology consultation for continued incontinence from her stroke Chronic pain is an issue for her back and knee Hgb 8.9, Creatinine 1.28 Checked labs and meds Conferred with RN Reviewed therapy notes Objective Exam Vital Signs Vital Signs Date Time Temp Pulse Resp B/P (MAP) Pulse Ox O2 Delivery O2 Flow Rate FiO2 11/09/19 16:44 36.5 65 20 114/56 96 Room Air Capillary Refill : Less Than 3 SecondsLess Than 3 Seconds General Appearance: No Apparent Distress, WD/WN, Chronically ill, Obese HEENT: PERRL/EOMI, Normal ENT Inspection, Pharynx Normal Neck: Full Range of Motion, Normal Inspection, Non Tender, Supple, Carotid Bruit Respiratory: Chest Non Tender, Lungs Clear, Normal Breath Sounds, No Accessory Muscle Use, No Respiratory Distress Cardiovascular: Regular Rate, Rhythm, No Edema, No Gallop, No JVD, No Murmur, Normal Peripheral Pulses Gastrointestinal: Normal Bowel Sounds, No Organomegaly, No Pulsatile Mass, Non Tender, Soft Back: Normal Inspection, No CVA Tenderness, No Vertebral Tenderness Extremity: Normal Capillary Refill, Normal Inspection, Normal Range of Motion, Non Tender, No Calf Tenderness, No Pedal Edema Neurologic/Psychiatric: Alert, Oriented x3, No Motor/Sensory Deficits, Normal Mood/Affect, hand expansion envelope maker II-XII Norm as Tested, Abnormal Gait, Motor Weakness (right arm and leg 4/5), Other (generalized weakness all extremities) Skin: Normal Color, Warm/Dry Lymphatic: No Adenopathy Results/Procedures Lab Patient resulted labs reviewed. FIM Transfers Therapy Code Descriptions/Definitions Functional [place] Measure: 0=Not Assessed/NA 4=Minimal Assistance 1=Total Assistance 5=Supervision or Setup 2=Maximal Assistance 6=Modified [place] 3=Moderate Assistance 7=Complete IndependenceSCALE: Activities may be completed with or without assistive devices. 8-Pamczpkqny-dpppjnx completes the activity by him/herself with no assistance from a helper. 5-Set-up or Clean-up Assistance-helper sets up or cleans up; patient completes activity. [place] assists only prior to or following the activity. 4-Supervision or Touching Assistance-helper provides verbal cues and/or touching/steadying and/or contact guard assistance as patient completes activity. Assistance may be provided throughout the activity or intermittently. 3-Partial/Moderate Assistance-helper does LESS THAN HALF the effort. [place] lifts, holds or supports trunk or limbs, but provides less than half the effort. 2-Substantial/Maximal Assistance-helper does MORE THAN HALF the effort. [place] lifts or holds trunk or limbs and provides more than half the effort. 5-Wffpietdd-hkaivk does ALL the effort. Patient does none of the effort to complete the activity. Or, the assistance of 2 or more helpers is required for the patient to complete the activity. If activity was not attempted, code reason: 7-Patient Refused. 9-Not Applicable-not attempted and the patient did not perform the activity before the current illness, exacerbation or injury. 10-Not Attempted due to Environmental Limitations-(lack of equipment, weather restraints, etc.). 88-Not Attempted due to Medical Conditions or Safety Concerns. Roll Left to Right (QC): 6 Sit to Lying (QC): 6 Sit to Stand (QC): 6 Chair/Aaq-gn-Loqko Xfer(QC): 6 Car Transfer (QC): 6 (slow, taking time and effort to bring RLE up into the car simulator) Gait Training Does the Patient Walk?: Yes Distance: 300' x 2 Walk 10 feet (QC): 6 Walk 50 ft with 2 Turns(QC): 6 Walk 150 ft (QC): 6 Walking 10ft/uneven surface-QC: 5 Gait Persons Needed: 0 Gait Assistive Device: FWW Wheelchair Training Does the Pt Use a Wheelchair?: No Wheel 50 ft with 2 turns (QC): 9 Wheel 150 ft (QC): 9 Stair Training Stair Training: Handrails/: 2 handrails #of Steps: 4 1 Step (curb) (QC): 4 4 Steps (QC): 5 12 Steps (QC): 88 Stairs: Pattern: Step to Balance Picking up an Object (QC): 88 ADL-Treatment Eating (QC): 6 (Per pt report) Oral Hygiene (QC): 6 (Per pt report) Shower/Bathe Self (QC): 6 (While seated) Upper Body Dressing (QC): 6 Lower Body Dressing (QC): 6 On/Off Footwear (QC): 6 (While seated) Toileting Hygiene (QC): 6 Toilet Transfer (QC): 6 Assessment/Plan Assessment and Plan Assess & Plan/Chief Complaint Assessment: Debility UTI CARY on CKD Stage 3 Dehydration s/p IVF NIDDMII HTN History of Stroke with right sided weakness residual DVT ppx: Lovenox Constipation Plan: Constipation management IRF protocol Home meds UTI Tx 10/29/19: Patient doing pretty well Incontinence continues UTI being treated Urology consulted Chronic pain Will start K pad Monitor hemoglobin 10/30/19: Kpad Detrol for incontinence Decreased motivation noted 10/31/19: Pain management with APAP Kpad to maintain Monitor BP and HR 11/01/19: Monitor creatinine Continue aggressive bowel regimen Continue aggressive therapy 11/02/19: Continue bowel regimen Complete UTI treatment Appreciate urology consultation with the addition of Detrol 11/03/19: Continue aggressive therapy Incontinence management Fall risk 11/04/19: Improved status Detrol doing well Fall risk prevention 11/05/19: Monitor strength Fall risk Monitor BP 11/06/19: Detrol helping Fall risk prevention Monitor chronic pain 11/07/19: Monitor BP Check labs in am Fall risk prevention 11/07/19: Continue aggressive treatment Try to motivate more rather than sleeping all the time Discharge planned soon (1) Debility (2) Constipation Status: Acute (3) Urinary tract infection Status: Acute (4) Acute renal failure Status: Acute (5) Hyperglycemia Status: Acute (6) Bradyarrhythmia Status: Acute (7) Carcinoma of left breast Status: Chronic (8) Hypertension Status: Chronic (9) History of colon cancer (10) Hx of colonic polyps (11) Depression Status: Chronic (12) Right sided weakness Status: Acute (13) CVA (cerebral vascular accident) Status: Acute VANESSA LOPEZ DO Nov 09, 2019 08:42
--- NOTE | 2019-11-09 08:42 | Discharge Summary ---
Diagnosis/Chief Complaint Date of Admission Oct 28, 2019 at 11:52 Date of Discharge Discharge Date: Nov 09, 2019 Discharge Diagnosis Assessment: Debility UTI CARY on CKD Stage 3 Dehydration s/p IVF NIDDMII HTN History of Stroke with right sided weakness residual DVT ppx: Lovenox Constipation Plan: Constipation management IRF protocol Home meds UTI Tx 10/29/19: Patient doing pretty well Incontinence continues UTI being treated Urology consulted Chronic pain Will start K pad Monitor hemoglobin 10/30/19: Kpad Detrol for incontinence Decreased motivation noted 10/31/19: Pain management with APAP Kpad to maintain Monitor BP and HR 11/01/19: Monitor creatinine Continue aggressive bowel regimen Continue aggressive therapy 11/02/19: Continue bowel regimen Complete UTI treatment Appreciate urology consultation with the addition of Detrol 11/03/19: Continue aggressive therapy Incontinence management Fall risk 11/04/19: Improved status Detrol doing well Fall risk prevention 11/05/19: Monitor strength Fall risk Monitor BP 11/06/19: Detrol helping Fall risk prevention Monitor chronic pain 11/07/19: Monitor BP Check labs in am Fall risk prevention 11/07/19: Continue aggressive treatment Try to motivate more rather than sleeping all the time Discharge planned soon Discharge Summary Discharge Physical Examination Allergies: Coded Allergies: No Known Drug Allergies (Unverified , 10/29/18) Vitals & I&Os Vital Signs Date Time Temp Pulse Resp B/P (MAP) Pulse Ox O2 Delivery O2 Flow Rate FiO2 11/09/19 16:44 36.5 65 20 114/56 96 Room Air General Appearance: Alert, Oriented X3 Respiratory: Normal Air Movement Cardiovascular: Regular Rate Neuro: Normal Speech Psych/Mental Status: Mental Status NL Hospital Course Was the Problem List Reviewed?: Yes Hospital course: Pt had an uneventful 13 day hospital course in inpatient rehab after debility from UTI and previous stroke. She participated in all therapy and she did have increased motivation to ambulate more while she was hospitalized in the inpatient rehab unit. Overall Pt responded to treatment and was able to be discharged on home health with family to check in on her and Pt was discharged in improved condition along with over-active bladder medications that helped her incontinence. Labs (last 24 hrs) Laboratory Tests 10/28/19 15:14: Glucometer 243H 10/28/19 20:31: Glucometer 236H 10/29/19 04:47: White Blood Count 4.7, Red Blood Count 2.80L, Hemoglobin 8.9L, Hematocrit 27L, Mean Corpuscular Volume 96, Mean Corpuscular Hemoglobin 32, Mean Corpuscular Hem oglobin Concent 33, Red Cell Distribution Width 13.1, Platelet Count 200, Mean Platelet Volume 9.9, Neutrophils (%) (Auto) 67, Lymphocytes (%) (Auto) 16, Monocytes (%) (Auto) 13H, Eosinophils (%) (Auto) 4, Basophils (%) (Auto) 0, Neutrophils # (Auto) 3.2, Lymphocytes # (Auto) 0.8L, Monocytes # (Auto) 0.6, Eosinophils # (Auto) 0.2, Basophils # (Auto) 0.0, Sodium Level 137, Potassium Level 4.7, Chloride Level 106, Carbon Dioxide Level 23, Anion Gap 8, Blood Urea Nitrogen 46H, Creatinine 1.28, Estimat Glomerular Filtration Rate 40, BUN/Creatinine Ratio 36, Glucose Level 204H, Calcium Level 11.7H, Corrected Calcium 12.1H, Total Bilirubin 0.3, Aspartate Amino Transf (AST/SGOT) 22, Alanine Aminotransferase (ALT/SGPT) 28, Alkaline Phosphatase 55, Total Protein 6.0L, Albumin 3.5 10/29/19 10:59: Glucometer 279H 10/29/19 16:04: Glucometer 149H 10/29/19 20:44: Glucometer 189H 10/30/19 05:28: Glucometer 226H 10/30/19 10:40: Glucometer 234H 10/30/19 16:03: Glucometer 140H 10/30/19 20:26: Glucometer 238H 10/31/19 05:50: Glucometer 181H 10/31/19 10:40: Glucometer 238H 10/31/19 16:46: Glucometer 145H 10/31/19 20:06: Glucometer 246H 11/01/19 05:30: Glucometer 190H 11/01/19 05:31: White Blood Count 3.9L, Red Blood Count 2.87L, Hemoglobin 9.1L, Hematocrit 27L, Mean Corpuscular Volume 96, Mean Corpuscular Hemoglobin 32, Mean Corpuscular Hemoglobin Concent 33, Red Cell Distribution Width 12.9, Platelet Count 215, Mean Platelet Volume 10.0, Neutrophils (%) (Auto) 68, Lymphocytes (%) (Auto) 16, Monocytes (%) (Auto) 12, Eosinophils (%) (Auto) 5, Basophils (%) (Auto) 0, N eutrophils # (Auto) 2.7, Lymphocytes # (Auto) 0.6L, Monocytes # (Auto) 0.5, Eosinophils # (Auto) 0.2, Basophils # (Auto) 0.0, Sodium Level 136, Potassium Level 4.7, Chloride Level 105, Carbon Dioxide Level 24, Anion Gap 7, Blood Urea Nitrogen 44H, Creatinine 1.51H, Estimat Glomerular Filtration Rate 33, BUN/Creatinine Ratio 29, Glucose Level 177H, Calcium Level 11.5H, Corrected Calcium 11.9H, Total Bilirubin 0.3, Aspartate Amino Transf (AST/SGOT) 28, Alanine Aminotransferase (ALT/SGPT) 37, Alkaline Phosphatase 53, Total Protein 6.2L, Albumin 3.5 11/01/19 12:07: Glucometer 251H 11/01/19 16:30: Glucometer 145H 11/01/19 21:20: Glucometer 233H 11/02/19 05:25: Glucometer 183H 11/02/19 10:51: Glucometer 222H 11/02/19 15:43: Glucometer 228H 11/02/19 20:27: Glucometer 246H 11/03/19 05:56: Glucometer 197H 11/03/19 11:11: Glucometer 203H 11/03/19 15:24: Glucometer 199H 11/03/19 20:15: Glucometer 213H 11/04/19 05:39: Glucometer 191H 11/04/19 11:06: Glucometer 187H 11/04/19 15:33: Glucometer 226H 11/04/19 20:25: Glucometer 209H 11/05/19 05:57: Glucometer 176H 11/05/19 10:59: Glucometer 273H 11/05/19 16:03: Glucometer 170H 11/05/19 20:10: Glucometer 226H 11/06/19 06:01: Glucometer 175H 11/06/19 10:53: Glucometer 228H 11/06/19 15:27: Glucometer 189H 11/06/19 20:20: Glucometer 151H 11/07/19 06:00: Glucometer 161H 11/07/19 10:36: Glucometer 216H 11/07/19 15:25: Glucometer 138H 11/07/19 20:16: Glucometer 166H 11/08/19 05:34: White Blood Count 3.5L, Red Blood Count 2.65L, Hemoglobin 8.4L, Hematocrit 25L, Mean Corpuscular Volume 96, Mean Corpuscular Hemoglobin 32, Mean Corpuscular Hemoglobin Concent 33, Red Cell Distribution Width 12.7, Platelet Count 277, Mean Platelet Volume 9.4, Neutrophils (%) (Auto) 62, Lymphocytes (%) (Auto) 21, Monocytes (%) (Auto) 12, Eosinophils (%) (Auto) 5, Basophils (%) (Auto) 1, Neutrophils # (Auto) 2.2, Lymphocytes # (Auto) 0.7L, Monocytes # (Auto) 0.4, Eosinophils # (Auto) 0.2, Basophils # (Auto) 0.0, Sodium Level 135, Potassium Level 4.6, Chloride Level 104, Carbon Dioxide Level 22, Anion Gap 9, Blood Urea Nitrogen 41H, Creatinine 1.24, Estimat Glomerular Filtration Rate 42, BUN/Creatinine Ratio 33, Glucose Level 162H, Calcium Level 11.0H, Magnesium Level 1.6 11/08/19 11:05: Glucometer 243H 11/08/19 16:11: Glucometer 158H 11/08/19 20:20: Glucometer 198H 11/09/19 06:12: Glucometer 183H 11/09/19 11:11: Glucometer 200H 11/09/19 15:56: Glucometer 214H Pending Labs Laboratory Tests 10/28/19 15:14: Glucometer 243 10/28/19 20:31: Glucometer 236 10/29/19 04:47: White Blood Count 4.7, Red Blood Count 2.80, Hemoglobin 8.9, Hematocrit 27, Mean Corpuscular Volume 96, Mean Corpuscular Hemoglobin 32, Mean Corpuscular Hemoglobin Concent 33, Red Cell Distribution Width 13.1, Platelet Count 200, Mean Platelet Volume 9.9, Neutrophils (%) (Auto) 67, Lymphocytes (%) (Auto) 16, Monocytes (%) (Auto) 13, Eosinophils (%) (Auto) 4, Basophils (%) (Auto) 0, Neutrophils # (Auto) 3.2, Lymphocytes # (Auto) 0.8, Monocytes # (Auto) 0.6, Eosinophils # (Auto) 0.2, Basophils # (Auto) 0.0, Sodium Level 137, Potassium Level 4.7, Chloride Level 106, Carbon Dioxide Level 23, Anion Gap 8, Blood Urea Nitrogen 46, Creatinine 1.28, Estimat Glomerular Filtration Rate 40, BUN/Creatinine Ratio 36, Glucose Level 204, Calcium Level 11.7, Corrected Calcium 12.1, Total Bilirubin 0.3, Aspartate Amino Transf (AST/SGOT) 22, Alanine Aminotransferase (ALT/SGPT) 28, Alkaline Phosphatase 55, Total Protein 6.0, Albumin 3.5 10/29/19 10:59: Glucometer 279 10/29/19 16:04: Glucometer 149 10/29/19 20:44: Glucometer 189 10/30/19 05:28: Glucometer 226 10/30/19 10:40: Glucometer 234 10/30/19 16:03: Glucometer 140 10/30/19 20:26: Glucometer 238 10/31/19 05:50: Glucometer 181 10/31/19 10:40: Glucometer 238 10/31/19 16:46: Glucometer 145 10/31/19 20:06: Glucometer 246 11/01/19 05:30: Glucometer 190 11/01/19 05:31: White Blood Count 3.9, Red Blood Count 2.87, Hemoglobin 9.1, Hematocrit 27, Mean Corpuscular Volume 96, Mean Corpuscular Hemoglobin 32, Mean Corpuscular Hemoglobin Concent 33, Red Cell Distribution Width 12.9, Platelet Count 215, Mean Platelet Volume 10.0, Neutrophils (%) (Auto) 68, Lymphocytes (%) (Auto) 16, Monocytes (%) (Auto) 12, Eosinophils (%) (Auto) 5, Basophils (%) (Auto) 0, Neutrophils # (Auto) 2.7, Lymphocytes # (Auto) 0.6, Monocytes # (Auto) 0.5, Eosinophils # (Auto) 0.2, Basophils # (Auto) 0.0, Sodium Level 136, Potassium Level 4.7, Chloride Level 105, Carbon Dioxide Level 24, Anion Gap 7, Blood Urea Nitrogen 44, Creatinine 1.51, Estimat Glomerular Filtration Rate 33, BUN/Creatinine Ratio 29, Glucose Level 177, Calcium Level 11.5, Corrected Calcium 11.9, Total Bilirubin 0.3, Aspartate Amino Transf (AST/SGOT) 28, Alanine Aminotransferase (ALT/SGPT) 37, Alkaline Phosphatase 53, Total Protein 6.2, Albumin 3.5 11/01/19 12:07: Glucometer 251 11/01/19 16:30: Glucometer 145 11/01/19 21:20: Glucometer 233 11/02/19 05:25: Glucometer 183 11/02/19 10:51: Glucometer 222 11/02/19 15:43: Glucometer 228 11/02/19 20:27: Glucometer 246 11/03/19 05:56: Glucometer 197 11/03/19 11:11: Glucometer 203 11/03/19 15:24: Glucometer 199 11/03/19 20:15: Glucometer 213 11/04/19 05:39: Glucometer 191 11/04/19 11:06: Glucometer 187 11/04/19 15:33: Glucometer 226 11/04/19 20:25: Glucometer 209 11/05/19 05:57: Glucometer 176 11/05/19 10:59: Glucometer 273 11/05/19 16:03: Glucometer 170 11/05/19 20:10: Glucometer 226 11/06/19 06:01: Glucometer 175 11/06/19 10:53: Glucometer 228 11/06/19 15:27: Glucometer 189 11/06/19 20:20: Glucometer 151 11/07/19 06:00: Glucometer 161 11/07/19 10:36: Glucometer 216 11/07/19 15:25: Glucometer 138 11/07/19 20:16: Glucometer 166 11/08/19 05:34: White Blood Count 3.5, Red Blood Count 2.65, Hemoglobin 8.4, Hematocrit 25, Mean Corpuscular Volume 96, Mean Corpuscular Hemoglobin 32, Mean Corpuscular Hemoglobin Concent 33, Red Cell Distribution Width 12.7, Platelet Count 277, Mean Platelet Volume 9.4, Neutrophils (%) (Auto) 62, Lymphocytes (%) (Auto) 21, Monocytes (%) (Auto) 12, Eosinophils (%) (Auto) 5, Basophils (%) (Auto) 1, Neutrophils # (Auto) 2.2, Lymphocytes # (Auto) 0.7, Monocytes # (Auto) 0.4, Eosinophils # (Auto) 0.2, Basophils # (Auto) 0.0, Sodium Level 135, Potassium Level 4.6, Chloride Level 104, Carbon Dioxide Level 22, Anion Gap 9, Blood Urea Nitrogen 41, Creatinine 1.24, Estimat Glomerular Filtration Rate 42, BUN/Creatinine Ratio 33, Glucose Level 162, Calcium Level 11.0, Magnesium Level 1.6 11/08/19 11:05: Glucometer 243 11/08/19 16:11: Glucometer 158 11/08/19 20:20: Glucometer 198 11/09/19 06:12: Glucometer 183 11/09/19 11:11: Glucometer 200 11/09/19 15:56: Glucometer 214 Discharge Home Medications: Active Scripts Active Detrol LA (Tolterodine Tartrate) 4 Mg Cap 4 Mg PO HS Reported Tylenol Arthritis (Acetaminophen) 650 Mg Tablet.er 650 Mg PO Q8H PRN I-Caps with Lutein-Petros 3 Sfg (Antiox#10/Om3/Dha/Epa/Lut/Zeax) 1 Each Capsule 1 Each PO BID Iron (Ferrous Sulfate) 325 Mg Tablet 650 Mg PO HS TAKES 2 (325MG) TABS Olmesartan Medoxomil 40 Mg Tablet 40 Mg PO DAILY Levetiracetam 750 Mg Tablet 750 Mg PO BID Carvedilol 12.5 Mg Tablet 12.5 Mg PO BID Atorvastatin Calcium 40 Mg Tablet 40 Mg PO DAILY Sertraline HCl 25 Mg Tablet 25 Mg PO DAILY Pantoprazole Sodium 40 Mg Tablet.dr 40 Mg PO DAILY Furosemide 40 Mg Tablet 40 Mg PO DAILY Vitamin D3 (Cholecalciferol (Vitamin D3)) 50 Mcg Capsule 50 Mcg PO DAILY Aspirin EC (Aspirin) 81 Mg Tablet.dr 81 Mg PO DAILY Letrozole 2.5 Mg Tablet 2.5 Mg PO DAILY Glimepiride 2 Mg Tablet 2 Mg PO DAILY Fish Oil 1,000 mg Capsule (Petros 3 Polyunsat Fatty Acids) 1,000 Mg Cap 1,000 Mg PO BID Iron (Ferrous Sulfate) 325 Mg Tablet 325 Mg PO DAILY Hydrochlorothiazide 25 Mg Tablet 25 Mg PO DAILY Januvia (Sitagliptin Phosphate) 100 Mg Tablet 100 Mg PO DAILY Instructions to patient/family Please see electronic discharge instructions given to patient. Diagnosis/Problems Diagnosis/Problems (1) Debility (2) Constipation Status: Acute (3) Urinary tract infection Status: Acute (4) Acute renal failure Status: Acute (5) Hyperglycemia Status: Acute (6) Bradyarrhythmia Status: Acute (7) Carcinoma of left breast Status: Chronic (8) Hypertension Status: Chronic (9) History of colon cancer (10) Hx of colonic polyps (11) Depression Status: Chronic (12) Right sided weakness Status: Acute (13) CVA (cerebral vascular accident) Status: Acute Clinical Quality Measures DVT/VTE Risk/Contraindication: Risk Factor Score Per Nursin RFS Level Per Nursing on Admit: 4+=Very High VANESSA LOPEZ DO Nov 09, 2019 08:42
--- NOTE | 2019-11-09 09:35 | Therapy Team Discharge Summary ---
Therapy Discharge Summary Discharge Recommendations Date of Discharge Therapy D/C Recommendations: Physical Therapy Home Care Physical Therapy This patient admitted to ARU post acute hospital stay due to UTI and CKD stage 3. Prior to her hospital admit, she was living alone at a mod indep level with her daughter in law checking in on her. Upon admit to this unit, she was min assist with bed mobility, transfers, and gait for short distances. Treatment has focused on functional strength, balance, gait and safety to progress to return home. At discharge is is grossly mod indep with all mobility and has achieved goals to a satisfactory level. She is to discharge home this date. Recommend [facility] PT to follow. DC from ARU> Occupational Therapy Decreased Activ Tolerance PT Want Ad Receiver Goals Want Ad Receiver Goals PT Halfway Goals Time Frame: Nov 18, 2019 Roll Left to Right (QC): 6 (met) Sit to Lying (QC): 6 (met) Lying-Sitting on Side/Bed(QC): 6 (met) Sit to Stand (QC): 6 (met) Chair/[id number] Xfer(QC): 6 (met) Car Transfer (QC): 6 (unemt, scored 5) Does the Patient Walk: Yes Walk 10 feet (QC): 6 (met) Walk 10ft-Uneven Surface(QC): 6 (unmet, scored 5) Walk 50ft with 2 Turns (QC): 6 (met) Walk 150 ft (QC): 6 (met) Does the Pt use WC or Scooter?: No Wheel 50 feet with 2 turns (QC: 9 1 Step (curb) (QC): 5 (met) 4 Steps (QC): 5 (exceeded) 12 Steps (QC): 9 Picking up an Object (QC): 4 OT Halfway Goals Halfway Goals Time Frame: Nov 11, 2019 Eating (FIM): 6 Eating (QC): 6 Oral Hygiene (QC): 6 Shower/Bathe Self (QC): 6 Upper Body Dressing (QC): 6 Lower Body Dressing (QC): 6 On/Off Footwear (QC): 6 Toileting(FIM): 6 Toileting Hygiene (QC): 6 Toilet/Commode Transfer (QC): 6 Additional Goals: 1-Demonstrate ADL Tasks, 2-Verbalize Understanding, 3- ImproveStrength/Odalys 1=Demonstrate adherence to instructed precautions during ADL tasks. 2=Patient will verbalize/demonstrate understanding of assistive devices/modifications for ADL. 3=Patient will improve strength/tolerance for activity to enable patient to perform ADL's. ANAI BOWEN PT Nov 09, 2019 09:35
[2019-11-09] MEDS: VITAMIN D3 25 MCG (1,000 UNITS) TABLET PO SCH (10:37)
[2019-11-09] MEDS: MAGNESIUM OXIDE (MAG-OX)400 MG TAB PO SCH (10:37)
[2019-11-09] MEDS: ASPIRIN E.C. 81 MG (ECOTRIN) TAB PO SCH (10:37)
[2019-11-09] MEDS: SERTRALINE 50 MG (ZOLOFT) TABLET PO SCH (10:37)
[2019-11-09] MEDS: HYDROCHLOROTHIAZIDE 25 MG (HCTZ) TAB PO SCH (10:37)
[2019-11-09] MEDS: DOCUSATE SODIUM 100 MG (COLACE) CAP PO SCH (10:37)
[2019-11-09] MEDS: VALSARTAN 160 MG (DIOVAN) TABLET PO SCH (10:38)
[2019-11-09] MEDS: PANTOPRAZOLE 40 MG (PROTONIX) TAB PO SCH (10:38)
[2019-11-09] MEDS: LEVETIRACETAM 500 MG (KEPPRA) TAB PO SCH (10:38)
[2019-11-09] MEDS: polyethylene glycoL POWDER 17 GM (MIRALAX) PACK PO SCH (10:40)
[2019-11-09] MEDS: LETROZOLE 2.5 MG (FEMARA) TAB PO SCH (10:41)
--- NOTE | 2019-11-09 10:54 | NUR ---
CM/SS DISCHARGE Patient discharged home as planned, dressed and ready to go. HHC: Finalized with [facility]. Patient's DIL/Patience will pick her up later today after she gets off work. Unit RN aware. Patient reports that she continues open dialogue with her DIL about any assistance they will provide to her at home. She indicates Patience seems more open now about offering, perhaps just a respite period was helpful for both to regroup and have the dialogue to make a mutual plan going forward. Patient positive about her return home, feels safe and ready. No new DME needed.
--- NOTE | 2019-11-09 11:19 | Therapy Team Discharge Summary ---
Therapy Discharge Summary Discharge Recommendations Date of Discharge 11/09/19 Therapy D/C Recommendations: Physical Therapy Home Care Occupational Therapy Pt seen by OT for decreased ADL skills and overall weakness. She met all goals completing ADLs mod I /independently and was discharged home with family support on this date. No equipment recommendations or further OT needed at this time. Decreased Activ Tolerance PT Assisted Goals Director Treasurer Goals PT Director Treasurer Goals Time Frame: Nov 18, 2019 Roll Left to Right (QC): 6 (met) Sit to Lying (QC): 6 (met) Lying-Sitting on Side/Bed(QC): 6 (met) Sit to Stand (QC): 6 (met) Chair/[id number] Xfer(QC): 6 (met) Car Transfer (QC): 6 (unemt, scored 5) Does the Patient Walk: Yes Walk 10 feet (QC): 6 (met) Walk 10ft-Uneven Surface(QC): 6 (unmet, scored 5) Walk 50ft with 2 Turns (QC): 6 (met) Walk 150 ft (QC): 6 (met) Does the Pt use WC or Scooter?: No Wheel 50 feet with 2 turns (QC: 9 1 Step (curb) (QC): 5 (met) 4 Steps (QC): 5 (exceeded) 12 Steps (QC): 9 Picking up an Object (QC): 4 OT Assisted Goals Assisted Goals Time Frame: Nov 11, 2019 Eating (FIM): 6 Eating (QC): 6 Oral Hygiene (QC): 6 Shower/Bathe Self (QC): 6 Upper Body Dressing (QC): 6 Lower Body Dressing (QC): 6 On/Off Footwear (QC): 6 Toileting(FIM): 6 Toileting Hygiene (QC): 6 Toilet/Commode Transfer (QC): 6 Additional Goals: 1-Demonstrate ADL Tasks, 2-Verbalize Understanding, 3- ImproveStrength/Odalys 1=Demonstrate adherence to instructed precautions during ADL tasks. 2=Patient will verbalize/demonstrate understanding of assistive devices/modifications for ADL. 3=Patient will improve strength/tolerance for activity to enable patient to perform ADL's. KEESHA AUGUSTIN OT Nov 09, 2019 11:19
[2019-11-09 16:44] VITALS: BP 114/56
== END 2019-11-09 16:30 | disposition home health service (06) | DRG 948 ==
PROVIDERS: ADMIT Internal Medicine; ATTEND Internal Medicine
DX: R53.1 Weakness (principal); N39.0 Urinary tract infection, site not specified; N17.9 Acute kidney failure, unspecified; I69.351 Hemiplegia and hemiparesis following cerebral infarction affecting right dominant side; I12.9 Hypertensive chronic kidney disease with stage 1 through stage 4 chronic kidney disease, or unspecified chronic kidney disease; E11.22 Type 2 diabetes mellitus with diabetic chronic kidney disease; E11.65 Type 2 diabetes mellitus with hyperglycemia; N18.3 Chronic kidney disease, stage 3 (moderate); K59.00 Constipation, unspecified; I69.398 Other sequelae of cerebral infarction; N31.8 Other neuromuscular dysfunction of bladder; N39.498 Other specified urinary incontinence; D63.1 Anemia in chronic kidney disease; M25.562 Pain in left knee; M25.561 Pain in right knee; M54.9 Dorsalgia, unspecified; C50.912 Malignant neoplasm of unspecified site of left female breast; M19.91 Primary osteoarthritis, unspecified site; F32.9 Major depressive disorder, single episode, unspecified; F41.9 Anxiety disorder, unspecified; E78.00 Pure hypercholesterolemia, unspecified; Z79.84 Long term (current) use of oral hypoglycemic drugs; Z85.038 Personal history of other malignant neoplasm of large intestine; Z90.89 Acquired absence of other organs
CPT/HCPCS: 36415; 80048; 80053; 82962; 83735; 85025

== ENCOUNTER → 2019-12-16 | Outpatient (CLI) | payer MEDICARE, BC ==
[~2019-12-16] MED LIST changes: -ACETAMINOPHEN 500 MG TAB (TYLENOL) PO PRN; -ALPRAZolam 0.25 MG (XANAX) TAB PO PRN; +ASPI-1238 PO; -ASPI-983 PO; -BISACODYL 10 MG SUPP (DULCOLAX) PR PRN; -CALCIUM CARBONATE 500 MG (TUMS) TAB.CHEW PO PRN; -DOCUSATE SODIUM 100 MG (COLACE) CAP PO PRN; -DOCUSATE SODIUM 100 MG (COLACE) CAP PO SCH; -FLEET ENEMA ADULT 1 EA BTL PR PRN; -LACTULOSE SYRUP 10GM/15ML (ENULOSE) 30ML UDC PO PRN; -LOPERAMIDE 2 MG (IMODIUM) TABLET PO PRN; -MELATONIN 3 MG TABLET PO PRN; -ONDANSETRON 4 MG (ZOFRAN) ORAL DISSOLVE TAB PO PRN; -PANT40TA3 PO; +PANT40TA52 PO; -SENNA W/DOCUSATE (SENOKOT S) TABLET PO SCH; +TOLTA4 PO; -diphenhydrAMINE 25 MG TAB (BENADRYL) PO PRN; -guaiFENesin/CODEINE (ROBITUSSIN AC) 10ML UDC PO PRN
[2019-12-16 14:44] LABS: BASOPHILS % (AUTO) 0 % (0-10); EOSINOPHILS # (AUTO) 0.1 10^3/uL (0.0-0.3); EOSINOPHILS % (AUTO) 2 % (0-10); HEMATOCRIT 31 % (35-52); HEMOGLOBIN 10.4 g/dL (11.5-16.0); LYMPHOCYTES # (AUTO) 1.2 10^3/uL (1.0-4.0); LYMPHOCYTES % (AUTO) 20 % (12-44); MEAN CORPUSCULAR HEMOGLOBIN 33 pg (25-34); MEAN CORPUSCULAR HGB CONC 34 g/dL (32-36); MEAN CORPUSCULAR VOLUME 97 fL (80-99); MEAN PLATELET VOLUME 9.4 fL (9.0-12.2); MONOCYTES # (AUTO) 0.5 10^3/uL (0.0-1.0); MONOCYTES % (AUTO) 9 % (0-12); NEUTROPHILS % (AUTO) 68 % (42-75); PLATELET COUNT 272 10^3/uL (130-400); WHITE BLOOD COUNT 5.9 10^3/uL (4.3-11.0)
[2019-12-16 15:03] LABS: ALBUMIN 4.3 GM/DL (3.2-4.5); BILIRUBIN,TOTAL 0.5 MG/DL (0.1-1.0); CALCIUM 11.2 MG/DL (8.5-10.1); CREATININE SERUM 2.48 MG/DL (0.60-1.30); POTASSIUM 4.9 MMOL/L (3.6-5.0); TOTAL PROTEIN 7.5 GM/DL (6.4-8.2)
== END ==
LOC: ONC 14:33
PROVIDERS: ATTEND Internal Medicine Hematology & Oncology
DX: C50.412 Malignant neoplasm of upper-outer quadrant of left female breast (principal); C18.2 Malignant neoplasm of ascending colon; E83.52 Hypercalcemia; N18.4 Chronic kidney disease, stage 4 (severe); Z98.890 Other specified postprocedural states; Z17.0 Estrogen receptor positive status [ER+]; Z92.3 Personal history of irradiation; Z86.73 Personal history of transient ischemic attack (TIA), and cerebral infarction without residual deficits; Z90.49 Acquired absence of other specified parts of digestive tract; Z79.811 Long term (current) use of aromatase inhibitors
CPT/HCPCS: 80053; 85025; G0463; 99213

== ENCOUNTER 2019-12-21 16:00 | Outpatient (RCR) | payer MEDICARE, BC ==
[~2019-12-21 16:00] MED LIST changes: +AMLO-250 PO; -AMLO5TAB9 PO; +NS IV 1000 ML (CANCER CTR) 1,000 ML ONE
[2019-12-21 16:37] LABS: ALBUMIN 4.1 GM/DL (3.2-4.5); BILIRUBIN,TOTAL 0.3 MG/DL (0.1-1.0); CALCIUM 11.2 MG/DL (8.5-10.1); CREATININE SERUM 1.8 MG/DL (0.60-1.30); POTASSIUM 4.8 MMOL/L (3.6-5.0); TOTAL PROTEIN 6.9 GM/DL (6.4-8.2)
== END 2020-03-16 | disposition home or self-care (01) ==
LOC: ONC 16:00
PROVIDERS: ATTEND Internal Medicine Hematology & Oncology
DX: Z51.11 Encounter for antineoplastic chemotherapy (principal); C50.412 Malignant neoplasm of upper-outer quadrant of left female breast; I63.9 Cerebral infarction, unspecified; C18.2 Malignant neoplasm of ascending colon; E83.52 Hypercalcemia; I12.9 Hypertensive chronic kidney disease with stage 1 through stage 4 chronic kidney disease, or unspecified chronic kidney disease; E11.22 Type 2 diabetes mellitus with diabetic chronic kidney disease; N18.4 Chronic kidney disease, stage 4 (severe); E78.00 Pure hypercholesterolemia, unspecified; Z90.49 Acquired absence of other specified parts of digestive tract; Z92.3 Personal history of irradiation; Z90.12 Acquired absence of left breast and nipple
CPT/HCPCS: 80053; 96360; 96361

== ENCOUNTER → 2020-07-03 | Outpatient (CLI) | payer MEDICARE, BC ==
[~2020-07-03] MED LIST changes: -NS IV 1000 ML (CANCER CTR) 1,000 ML ONE; +SERT-412 PO; +SERT-413 PO; -SERT25TA5 PO; -SERT50TA9 PO
[2020-07-03 09:19] LABS: BASOPHILS % (AUTO) 1 % (0-10); EOSINOPHILS # (AUTO) 0.2 10^3/uL (0.0-0.3); EOSINOPHILS % (AUTO) 3 % (0-10); HEMATOCRIT 33 % (35-52); HEMOGLOBIN 10.8 g/dL (11.5-16.0); LYMPHOCYTES % (AUTO) 16 % (12-44); MEAN CORPUSCULAR HEMOGLOBIN 33 pg (25-34); MEAN CORPUSCULAR HGB CONC 33 g/dL (32-36); MEAN CORPUSCULAR VOLUME 99 fL (80-99); MEAN PLATELET VOLUME 9.7 fL (9.0-12.2); MONOCYTES # (AUTO) 0.6 10^3/uL (0.0-1.0); MONOCYTES % (AUTO) 9 % (0-12); NEUTROPHILS # (AUTO) 4.6 10^3/uL (1.8-7.8); NEUTROPHILS % (AUTO) 72 % (42-75); PLATELET COUNT 285 10^3/uL (130-400); WHITE BLOOD COUNT 6.4 10^3/uL (4.3-11.0)
[2020-07-03 09:41] LABS: ALBUMIN 4.1 GM/DL (3.2-4.5); BILIRUBIN,TOTAL 0.4 MG/DL (0.1-1.0); CALCIUM 10.6 MG/DL (8.5-10.1); CREATININE SERUM 1.69 MG/DL (0.60-1.30); POTASSIUM 4.9 MMOL/L (3.6-5.0); TOTAL PROTEIN 7.2 GM/DL (6.4-8.2)
== END ==
LOC: ONC 08:59
PROVIDERS: ATTEND Internal Medicine Hematology & Oncology
DX: Z12.31 Encounter for screening mammogram for malignant neoplasm of breast (principal); C50.412 Malignant neoplasm of upper-outer quadrant of left female breast; C18.2 Malignant neoplasm of ascending colon; I12.9 Hypertensive chronic kidney disease with stage 1 through stage 4 chronic kidney disease, or unspecified chronic kidney disease; E11.22 Type 2 diabetes mellitus with diabetic chronic kidney disease; N18.4 Chronic kidney disease, stage 4 (severe); Z90.12 Acquired absence of left breast and nipple; Z98.890 Other specified postprocedural states; Z92.3 Personal history of irradiation; Z80.3 Family history of malignant neoplasm of breast; Z86.73 Personal history of transient ischemic attack (TIA), and cerebral infarction without residual deficits; Z90.49 Acquired absence of other specified parts of digestive tract; E78.00 Pure hypercholesterolemia, unspecified
CPT/HCPCS: 80053; 82378; 82728; 85025; G0463; 99213

== ENCOUNTER 2020-10-22 15:29 | Inpatient (IN) | payer MEDICARE, BC ==
[~2020-10-22] VITALS: Ht 164.6 cm; Wt 102.3 kg
[~2020-10-22 15:29] MED LIST changes: -HYDR-3857 PO; +HYDR-4506 PO
[2020-10-22 15:53] LABS: BASOPHILS % (AUTO) 0 % (0-10); EOSINOPHILS # (AUTO) 0.1 10^3/uL (0.0-0.3); EOSINOPHILS % (AUTO) 1 % (0-10); HEMATOCRIT 34 % (35-52); HEMOGLOBIN 11.2 g/dL (11.5-16.0); LYMPHOCYTES # (AUTO) 0.9 10^3/uL (1.0-4.0); LYMPHOCYTES % (AUTO) 9 % (12-44); MEAN CORPUSCULAR HEMOGLOBIN 32 pg (25-34); MEAN CORPUSCULAR HGB CONC 33 g/dL (32-36); MEAN CORPUSCULAR VOLUME 98 fL (80-99); MEAN PLATELET VOLUME 10.3 fL (9.0-12.2); MONOCYTES # (AUTO) 0.5 10^3/uL (0.0-1.0); MONOCYTES % (AUTO) 6 % (0-12); NEUTROPHILS # (AUTO) 7.9 10^3/uL (1.8-7.8); NEUTROPHILS % (AUTO) 84 % (42-75); PLATELET COUNT 271 10^3/uL (130-400); WHITE BLOOD COUNT 9.5 10^3/uL (4.3-11.0)
[2020-10-22 15:58] LABS: ALBUMIN 4.5 GM/DL (3.2-4.5); POTASSIUM 4.7 MMOL/L (3.6-5.0)
[2020-10-22 15:59] LABS: CALCIUM 11.3 MG/DL (8.5-10.1)
[2020-10-22 16:02] LABS: BILIRUBIN,TOTAL 0.6 MG/DL (0.1-1.0)
--- NOTE | 2020-10-22 16:02 | ED General ---
General Chief Complaint: Altered Mental Status Stated Complaint: AMS Source of Information: Patient, EMS Exam Limitations: No Limitations (SHARIF LEONARD [facility] STUDENT) History of Present Illness Date Seen by Provider: Oct 22, 2020 Time Seen by Provider: 15:30 Initial Comments Pt presented to ED via EMS with complaints of inability to ambulate off of commode and AMS. Per EMS, she was on her commode at home where she was was stuck and unable to move herself up off of it. She was reportedly found in filthy conditions with urine/feces throughout her home and on her person. She states that she has been having fecal incontinence for an unspecified amount of time. She denies dysuria, hematuria, urinary incontinence. She states she has pain going down her lower back and into her legs. Denies chest pain, fevers, chills, N/V, abd pain. States she has been experiencing SOB w/o cough. Timing/Duration: 12-24 Hours Severity: Moderate Associated Systoms: No Chest Pain, No Fever/Chills, No Nausea/Vomiting; Shortness of Air (SHARIF LEONARD STUDENT) Initial Comments EMS reports they made a hotline call on her for her poor living conditions and inability to care for herself. Patient wishes allow natural , DNR. Spoke to her son Shayne Mahoney and he agrees with the plan for hospital stay. He says they have already started cleaning up some of the house. He says they have been working on talking her into alternative living situation since she is not able to take care of herself. His has been over there several times a week bringing her meals and taking her to doctor's appointments. We discussed independent living and assisted living. He says she has been fiercely independent up till this point. (SUJEY HEAD) Allergies and Home Medications Allergies Coded Allergies: No Known Drug Allergies (Unverified , 10/29/18) Home Medications Acetaminophen 650 Mg Tablet.er, 650 MG PO Q8H PRN for PAIN-MILD (1-4), (Reported) Antiox#10/Om3/Dha/Epa/Lut/Zeax 1 Each Capsule, 1 EACH PO BID, (Reported) Aspirin 81 Mg Tablet.dr, 81 MG PO DAILY, (Reported) Atorvastatin Calcium 40 Mg Tablet, 40 MG PO DAILY, (Reported) Carvedilol 12.5 Mg Tablet, 12.5 MG PO BID, (Reported) Cholecalciferol (Vitamin D3) 50 Mcg Capsule, 50 MCG PO DAILY, (Reported) Ferrous Sulfate 325 Mg Tablet, 325 MG PO DAILY, (Reported) Ferrous Sulfate 325 Mg Tablet, 650 MG PO HS, (Reported) TAKES 2 (325MG) TABS Furosemide 40 Mg Tablet, 40 MG PO DAILY, (Reported) Glimepiride 2 Mg Tablet, 2 MG PO DAILY, (Reported) Hydrochlorothiazide 25 Mg Tablet, 25 MG PO DAILY, (Reported) Letrozole 2.5 Mg Tablet, 2.5 MG PO DAILY, (Reported) Levetiracetam 750 Mg Tablet, 750 MG PO BID, (Reported) Olmesartan Medoxomil 40 Mg Tablet, 40 MG PO DAILY, (Reported) Cornell 3 Polyunsat Fatty Acids 1,000 Mg Cap, 1,000 MG PO BID, (Reported) Pantoprazole Sodium 40 Mg Tablet.dr, 40 MG PO DAILY, (Reported) Sertraline HCl 25 Mg Tablet, 25 MG PO DAILY, (Reported) Sitagliptin Phosphate 100 Mg Tablet, 100 MG PO DAILY, (Reported) Tolterodine Tartrate 4 Mg Cap, 4 MG PO HS Prescribed by: VANESSA LOPEZ on 11/08/192036 Patient Home Medication List Home Medication List Reviewed: Yes (SHARIF LEONARD) Review of Systems Review of Systems Constitutional: No chills, No dizziness, No fever EENTM: No hearing loss, No vision loss Respiratory: No cough, No hemoptysis; short of breath Cardiovascular: No chest pain; edema (mild 1+ edema BLE) Gastrointestinal: No abdominal pain, No nausea, No vomiting; other (states she has been incontinent) Genitourinary: No decreased output, No dysuria, No hematuria Musculoskeletal: No back pain, No joint pain Psychiatric/Neurological: Denies Headache, Denies Numbness, Denies Paresthesia (SHARIF LEONARD) All Other Systems Reviewed Negative Unless Noted: Yes (SHARIF LEONARD) Past Ycwndak-Inczyd-Gwrbdl Hx Patient Social History Tobacco Use?: No Substance use?: No Alcohol Use?: No (SHARIF LEONARD) Immunizations Up To Date Tetanus Booster (TDap): Unknown PED Vaccines UTD: Yes (SHARIF LEONARD) Seasonal Allergies Seasonal Allergies: Yes (MILD) (SHARIF LEONARD [employer] STUDENT) Past Medical History Surgeries: Yes (CATARACTS, GRAVEL REMOVED FROM KNEE, D&C, LIPOMA , R BREAST LUMP, COLECTOMY) Abdominal, Tonsillectomy, Tubal Ligation Respiratory: No Cardiac: Yes High Cholesterol, Hypertension Neurological: Yes (CVA- APRIL 2019) Stroke Reproductive Disorders: 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 Sexually Transmitted Disease: No HIV/AIDS: No Genitourinary: Yes Bladder Infection Gastrointestinal: Yes (COLON CANCER) Musculoskeletal: Yes Degenerate Disk Disease, Arthritis, Chronic Back Pain Endocrine: Yes Diabetes, Non-Insulin dep HEENT: Yes (GLASSES, DENTURES) Loss of Vision: Denies Hearing Impairment: Denies Cancer: Yes Breast, Colon Did You Recieve Any Treatments: Yes What Type of Treatment Did You: Surgical Intervention Psychosocial: Yes (SITUATIONAL ) Depression Integumentary: No Blood Disorders: No Adverse Reaction/Blood Tranf: No (N/A) (SHARIF LEONARD [employer] STUDENT) Family Medical History Alcoholism 19 FATHER Completed stroke 19 MOTHER Dementia 19 MOTHER Diabetes mellitus 19 MOTHER G8 BROTHER FH: breast cancer G8 SISTER FH: uterine cancer 19 MOTHER Hypertension G8 BROTHER Respiratory disorder 19 FATHER Physical Exam Vital Signs Capillary Refill : (SHARIF LEONARD [employer] STUDENT) Height, Weight, BMI Height: 5'3.00" Weight: 221lbs. 3.0oz. 100.656209pe; 36.71 BMI Method: General Appearance: No Apparent Distress, Chronically ill, Obese Eyes: Bilateral Eye Normal Inspection, Bilateral Eye PERRL, Bilateral Eye EOMI HEENT: PERRL/EOMI, Normal ENT Inspection, Pharynx Normal Neck: Full Range of Motion, Normal Inspection, Non Tender, Supple Respiratory: Chest Non Tender, Lungs Clear, Normal Breath Sounds, No Accessory Muscle Use, No Respiratory Distress Cardiovascular: Regular Rate, Rhythm, Normal Peripheral Pulses, Other (mild edema BLE) Gastrointestinal: Normal Bowel Sounds, Non Tender, Soft Rectal: Deferred Back: Normal Inspection, No CVA Tenderness, No Vertebral Tenderness Extremity: Normal Capillary Refill, Normal Range of Motion, Calf Tenderness (expresses tenderness to R calf,), Pedal Edema (1+ BLE) Neurologic/Psychiatric: Alert, No Motor/Sensory Deficits, Normal Mood/Affect, Disoriented (oriented to place, disoriented to person and time) Skin: Normal Color, Cool, Damp, Erythema (L chest/breast) Lymphatic: No Adenopathy (SHARIF LEONARD STUDENT) Focused Exam Sepsis Stage: Sepsis Possible Source: Genitouriary (SUJEY HEAD) Time of Focused Exam: 17:49 Respiratory: Lungs Clear, Normal Breath Sounds, No Accessory Muscle Use, No Respiratory Distress Cardiovascular: Regular Rate, Rhythm, Normal Peripheral Pulses Capillary Refill: Less Than 3 Seconds Peripheral Pulses: 2+ Radial Pulses (R), 2+ Radial Pulses (L) Skin: normal color, warm/dry (SUJEY HEAD) Within 3hrs of presentation: Admin fluids, Admin ABX, Blood cultures prior to ABX's, Focus exam, Lactate level (SUJEY HEAD) Progress/Results/Core Measures Suspected Sepsis SIRS Temperature: Pulse: Respiratory Rate: Laboratory Tests 10/22/20 15:30: White Blood Count 9.5 Blood Pressure / Mean: Laboratory Tests 10/22/20 15:30: Creatinine 2.95H, Platelet Count 271, Total Bilirubin 0.6 (SHARIF LEONARD STUDENT) Results/Orders Lab Results Laboratory Tests Test 10/22/20 15:30 10/22/20 15:49 10/22/20 16:09 10/22/20 17:29 Range/Units White Blood Count 9.5 4.3-11.0 10^3/uL Red Blood Count 3.51 L 3.80-5.11 10^6/uL Hemoglobin 11.2 L 11.5-16.0 g/dL Hematocrit 34 L 35-52 % Mean Corpuscular Volume 98 80-99 fL Mean Corpuscular Hemoglobin 32 25-34 pg Mean Corpuscular Hemoglobin Concent 33 32-36 g/dL Red Cell Distribution Width 12.8 10.0-14.5 % Platelet Count 271 130-400 10^3/uL Mean Platelet Volume 10.3 9.0-12.2 fL Immature Granulocyte % (Auto) 0 % Neutrophils (%) (Auto) 84 H 42-75 % Lymphocytes (%) (Auto) 9 L 12-44 % Monocytes (%) (Auto) 6 0-12 % Eosinophils (%) (Auto) 1 0-10 % Basophils (%) (Auto) 0 0-10 % Neutrophils # (Auto) 7.9 H 1.8-7.8 10^3/uL Lymphocytes # (Auto) 0.9 L 1.0-4.0 10^3/uL Monocytes # (Auto) 0.5 0.0-1.0 10^3/uL Eosinophils # (Auto) 0.1 0.0-0.3 10^3/uL Basophils # (Auto) 0.0 0.0-0.1 10^3/uL Immature Granulocyte # (Auto) 0.0 0.0-0.1 10^3/uL Sodium Level 138 135-145 MMOL/L Potassium Level 4.7 3.6-5.0 MMOL/L Chloride Level 99 98-107 MMOL/L Carbon Dioxide Level 21 21-32 MMOL/L Anion Gap 18 H 5-14 MMOL/L Blood Urea Nitrogen 40 H 7-18 MG/DL Creatinine 2.95 H 0.60-1.30 MG/DL Estimat Glomerular Filtration Rate 15 BUN/Creatinine Ratio 14 Glucose Level 298 H 70-105 MG/DL Calcium Level 11.3 H 8.5-10.1 MG/DL Corrected Calcium 10.9 H 8.5-10.1 MG/DL Total Bilirubin 0.6 0.1-1.0 MG/DL Aspartate Amino Transf (AST/SGOT) 25 5-34 U/L Alanine Aminotransferase (ALT/SGPT) 33 0-55 U/L Alkaline Phosphatase 75 40-136 U/L Total Creatine Kinase 431 H 29-168 U/L C-Reactive Protein High Sensitivity 4.44 H 0.00-0.50 MG/DL B-Type Natriuretic Peptide 13.7 <100.0 PG/ML Total Protein 8.0 6.4-8.2 GM/DL Albumin 4.5 3.2-4.5 GM/DL Glucometer 269 H 70-110 MG/DL Urine Color YELLOW Urine Clarity CLOUDY Urine pH 5.0 5-9 Urine Specific Tennyson 1.025 H 1.016-1.022 Urine Protein TRACE H NEGATIVE Urine Glucose (UA) NEGATIVE NEGATIVE Urine Ketones TRACE H NEGATIVE Urine Nitrite NEGATIVE NEGATIVE Urine Bilirubin NEGATIVE NEGATIVE Urine Urobilinogen 0.2 < = 1.0 MG/DL Urine Leukocyte Esterase 3+ H NEGATIVE Urine RBC (Auto) 2+ H NEGATIVE Urine RBC RARE /HPF Urine WBC TNTC H /HPF Urine Squamous Epithelial Cells NONE /HPF Urine Crystals NONE /LPF Urine Bacteria MODERATE H /HPF Urine Casts NONE /LPF Urine Mucus NEGATIVE /LPF Urine Culture Indicated YES (SUJEY HEAD) My Orders Orders - SUJEY HEAD Accucheck Stat ONCE (10/22/20 15:42) Ua Culture If Indicated (10/22/20 15:42) Cbc With Automated Diff (10/22/20 15:42) Comprehensive Metabolic Panel (10/22/20 15:42) Hs C Reactive Protein (10/22/20 15:42) Straight Cath For Spec.-Adult (10/22/20 15:56) Chest 1 View, Ap/Pa Only (10/22/20 15:56) Covid 19 Inhouse Test (10/22/20 15:56) Influenza A And B By Pcr (10/22/20 15:56) BNP (10/22/20 15:57) Creatine Kinase (10/22/20 15:58) Urine Culture (10/22/20 16:09) Ed Iv/Invasive Line Start (10/22/20 17:14) Ns Iv 1000 Ml (Sodium Chloride 0.9%) (10/22/20 17:15) Ceftriaxone (Rocephin) (10/22/20 17:30) Blood Culture (10/22/20 17:50) Ed Iv/Invasive Line Start (10/22/20 17:50) Ed Iv/Invasive Line Start (10/22/20 17:50) Vital Signs Adult Sepsis Patie Q15M (10/22/20 17:50) O2 (10/22/20 17:50) Remove Rings In Anticipation O (10/22/20 17:50) Lactic Acid Analyzer (10/22/20 17:50) (SUJEY HEAD) Vital Signs/I&O Capillary Refill : (SHARIF LEONARD STUDENT) Point of Care Testing Finger Stick Blood Glucose: 269 Blood Glucose Action Taken: rn notified (SHARIF LEONARD STUDENT) Progress Note : Time: 17:19 Progress Note I attest that I saw this patient alongside the medical student and agree with his documented history, physical exam and review of systems except as otherwise noted. Patient is a relatively poor historian although she is able to answer questions and is at times oriented and other times not. She seems to be having a delirium related to urinary tract infection. We will give her a gram of Rocephin and discussed with her and family doing an observation stay for social insurance adviser, and IV antibiotics, IV fluids for her stage I acute kidney injury. Although patient does not meet SIRS criteria she does have sepsis based on her infection and to organs with dysfunction related to this infection, stage I CARY and delirium encephalopathy. Blood cultures and lactate will be ordered. (SUJEY HEAD) Departure Communication (Admissions) Time/Spoke to Admitting Phy: 17:55 Discussed the case with Dr. Olson and even though her vitals are aseptic she is on a beta-silvia which would block her tachycardia. She has evidence of to end organs with dysfunction related to her primary infectious diagnosis of UTI the encephalopathy/delirium and stage I acute kidney injury. He would like us to collect cultures and lactate prior to initiating antibiotics. He agrees to admit the patient to the floor. Consult social insurance adviser about advanced placement to assisted living or other appropriate level of care. (SUJEY HEAD) Impression Primary Impression: UTI (urinary tract infection) Qualified Codes: N30.00 - Acute cystitis without hematuria Additional Impressions: Delirium due to another medical condition Social environment related disease Sepsis Qualified Codes: A41.9 - Sepsis, unspecified organism; R65.20 - Severe sepsis without septic shock; N17.9 - Acute kidney failure, unspecified Disposition: ADMITTED INPATIENT Condition: Stable Admissions Decision to Admit Reason: Admit from ER (General) Decision to Admit/Date: Oct 22, 2020 Time/Decision to Admit Time: 17:11 (SUJEY HEAD) Departure-Patient Inst. Referrals: RAYO SANDHU DO (PCP/Family) Primary Care Physician SHARIF LEONARD STUDENT Oct 22, 2020 16:02 SUJEY HEAD Oct 22, 2020 17:21
[2020-10-22 16:04] LABS: CREATININE SERUM 2.95 MG/DL (0.60-1.30)
[2020-10-22 16:19] LABS: BILIRUBIN,URINE NEGATIVE (NEGATIVE); CLARITY,URINE CLOUDY; COLOR,URINE YELLOW; GLUCOSE, URINE (UA) NEGATIVE (NEGATIVE); KETONES,URINE TRACE (NEGATIVE); LEUKOCYTE ESTERASE ,URINE 3+ (NEGATIVE); NITRITE,URINE NEGATIVE (NEGATIVE); PROTEIN,URINE TRACE (NEGATIVE)
[2020-10-22 16:27] LABS: BACTERIA,URINE MODERATE /HPF; RBC,URINE RARE /HPF; WBC,URINE TNTC /HPF
[2020-10-22] MEDS ORDERED: NS IV 1000 ML 1,000 ML IV SCH (17:15)
[2020-10-22] MEDS ORDERED: cefTRIAXone 1,000 MG in WATER (STERILE) FOR INJECTION 10 ML IV ONE (17:30)
[2020-10-22 18:15] VITALS: BP 177/85
--- NOTE | 2020-10-22 18:41 | Diagnostic Imaging Report ---
INDICATION: 80-year-old female with shortness of breath. COMPARISON: None. EXAMINATION: Single view chest. FINDINGS: Normal heart, pulmonary vasculature, pleura and diaphragms with no focal opacity. Soft tissues and bony thorax are normal. IMPRESSION: No acute cardiopulmonary change. Dictated by: Dictated on workstation # [id number]
[2020-10-22 20:00] VITALS: BP 177/85
[2020-10-22] MEDS ORDERED: ONDANSETRON 4 MG/2 ML (SDV) Z0FRAN IV PRN (20:30)
[2020-10-22 21:12] VITALS: BP 180/97
[2020-10-22] MEDS: inSUlin ASPART (NovoLOG) 1 UNIT/0.01 ML (CHARGE PER UNIT) SC SCH (21:50)
[2020-10-22] MEDS: NS IV 1000 ML 1,000 ML IV SCH (21:50)
[2020-10-23] VITALS (7 sets, daily range): BP systolic 100–164; BP diastolic 48–84
[2020-10-23 05:39] LABS: BASOPHILS % (AUTO) 0 % (0-10); EOSINOPHILS # (AUTO) 0.2 10^3/uL (0.0-0.3); EOSINOPHILS % (AUTO) 2 % (0-10); HEMATOCRIT 30 % (35-52); HEMOGLOBIN 9.6 g/dL (11.5-16.0); LYMPHOCYTES # (AUTO) 0.9 10^3/uL (1.0-4.0); LYMPHOCYTES % (AUTO) 12 % (12-44); MEAN CORPUSCULAR HEMOGLOBIN 32 pg (25-34); MEAN CORPUSCULAR HGB CONC 32 g/dL (32-36); MEAN CORPUSCULAR VOLUME 100 fL (80-99); MEAN PLATELET VOLUME 10.3 fL (9.0-12.2); MONOCYTES # (AUTO) 0.6 10^3/uL (0.0-1.0); MONOCYTES % (AUTO) 8 % (0-12); NEUTROPHILS # (AUTO) 5.6 10^3/uL (1.8-7.8); NEUTROPHILS % (AUTO) 77 % (42-75); PLATELET COUNT 226 10^3/uL (130-400); WHITE BLOOD COUNT 7.3 10^3/uL (4.3-11.0)
[2020-10-23] MEDS: NS IV 1000 ML 1,000 ML IV SCH ×3 (05:59→21:55)
[2020-10-23 06:08] LABS: CALCIUM 10.2 MG/DL (8.5-10.1)
[2020-10-23 06:12] LABS: CREATININE SERUM 1.67 MG/DL (0.60-1.30)
[2020-10-23] MEDS: inSUlin ASPART (NovoLOG) 1 UNIT/0.01 ML (CHARGE PER UNIT) SC SCH ×4 (06:13→20:17)
[2020-10-23] MEDS ORDERED: ENOXAPARIN 60 MG/0.6 ML (LOVENOX) SYR SC ONE (09:15)
--- NOTE | 2020-10-23 09:17 | History & Physical-Hospitalist ---
History of Present Illness HPI/Chief Complaint Pt is a 80yoCF with a PMH of HTN, NIDDMII, CVA, CKD, colon and breast cancer who presented to the ER via EMS due to weakness. She is unable to provide much history and instead is focused on eating her pancakes at her table. She was able to tell me that she has been weak for the past week or so but is otherwise unable to tell me any symptoms. Apparently EMS was summoned to her house (she is unsure why) and they found her unable to get off the commode. EMS found her in filthy conditions with urine/feces all throughout her home and on her person. She does not relay any of this to me. Source: patient Exam Limitations: clinical condition Date Seen 10/23/20 Time Seen by a Provider: 09:04 Attending Physician Bambi Olson MD PCP Emerson Odom DO Referring Physician Date of Admission Oct 22, 2020 at 17:40 Home Medications & Allergies Home Medications Reviewed patient Home Medication Reconciliation performed by pharmacy medication reconciliations light rail signal technician and/or nursing. Patients Allergies have been reviewed. Allergies Allergies Coded Allergies No Known Drug Allergies (Unverified10/29/18) Past Ckqrcox-Tqyzeq-Ltldzs Hx Patient Social History Employed/Student: retired Tobacco Use?: No Smoking Status: Unknown if Ever Smoked Substance use?: No Alcohol Use?: No Pt feels they are or have been: No Immunizations Up To Date Date of Influenza Vaccine: Dec 22, 2018 First/Initial COVID19 Vaccinat: vaccinated 2020 Second COVID19 Vaccination Darío: 2020 Tetanus Booster (TDap): Unknown Hepatitis A: Yes Hepatitis B: Yes PED Vaccines UTD: Yes Date of Pneumonia Vaccine: Mar 17, 2014 Seasonal Allergies Seasonal Allergies: Yes (MILD) Current Status Advance Directives: No Communicates: Verbally Primary Language: Maltese Preferred Spoken Language: Maltese Is interpretation needed?: No Implanted or Applied Medical D: None Past Medical History Surgeries: Abdominal, Tonsillectomy, Tubal Ligation High Cholesterol, Hypertension 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 Sexually Transmitted Disease: No HIV/AIDS: No Bladder Infection Degenerate Disk Disease, Arthritis, Chronic Back Pain Diabetes, Non-Insulin dep Loss of Vision: Denies Hearing Impairment: Denies Breast, Colon Did You Recieve Any Treatments: Yes What Type of Treatment Did You: Surgical Intervention Depression Blood Disorders: No Adverse Reaction/Blood Tranf: No (N/A) Family Medical History Reviewed Nursing Family Hx Alcoholism 19 FATHER Completed stroke 19 MOTHER Dementia 19 MOTHER Diabetes mellitus 19 MOTHER G8 BROTHER FH: breast cancer G8 SISTER FH: uterine cancer 19 MOTHER Hypertension G8 BROTHER Respiratory disorder 19 FATHER Review of Systems Constitutional: see HPI Physical Exam Physical Exam Vital Signs Vital Signs - First Documented 10/22/20 15:30 Temp 35.9 Pulse 67 Resp 18 B/P (MAP) 155/64 (94) Pulse Ox 98 O2 Delivery Room Air Capillary Refill : Less Than 3 Seconds Height, Weight, BMI Height: 5'3.00" Weight: 221lbs. 3.0oz. 100.621156bu; 37.75 BMI Method: General Appearance: No Apparent Distress, Chronically ill, Obese HEENT: PERRL/EOMI, Moist Mucous Membranes Neck: Normal Inspection, Supple Respiratory: Lungs Clear, No Accessory Muscle Use, No Respiratory Distress Cardiovascular: Regular Rate, Rhythm, No Murmur Gastrointestinal: Normal Bowel Sounds, Non Tender, Soft Extremity: Normal Capillary Refill, No Calf Tenderness, No Pedal Edema Neurologic/Psychiatric: Alert, Oriented x3, Normal Mood/Affect Skin: Normal Color, Warm/Dry Results Results/Procedures Labs Laboratory Tests 10/22/20 15:30 10/23/20 05:17 Patient resulted labs reviewed. Imaging: Reviewed Imaging Report Imaging [facility], [place] NAME: EDI TUCKER [facility] REC#: [id number] PT STATUS: ADM IN : 1940 PHYSICIAN: SUJEY HEAD MD ADMIT DATE: 10/22/20 Signed Date of Exam:10/22/20 CHEST 1 VIEW, AP/PA ONLY INDICATION: 80-year-old female with shortness of breath. COMPARISON: None. EXAMINATION: Single view chest. FINDINGS: Normal heart, pulmonary vasculature, pleura and diaphragms with no focal opacity. Soft tissues and bony thorax are normal. IMPRESSION: No acute cardiopulmonary change. Dictated by: Dictated on workstation # [id number] Dict: 10/22/20 183 Trans: 10/22/208 [facility] [id number] Interpreted by: ABRAM NEVAREZ MD Electronically signed by: ABRAM NEVAREZ MD 10/22/20 8659 Assessment/Plan Admission Diagnosis Severe Sepsis from UTI Admission Status: Inpatient Order (span 2 midnights) Reason for Inpatient Admission: see below Assessment and Plan Severe Sepsis from UTI CARY on CKD Stage 3 Temp 35.9 on arrival and on beta silvia so tachycardia likely masked, lactic acidosis on 2.14 on arrival with elevated creatinine Creatinine improved today, appears to have baseline around 1.5 Continue on IV abx Urine culture growing e coli, await sensitivities Continue IVF Hold home diuretics NIDDMII Continue home meds as able SSI HTN Continue home BP meds History of Stroke Debility PT/OT Will likely need placement History of Breast cancer history of colon cancer no acute needs DVT ppx: Lovenox Diagnosis/Problems Diagnosis/Problems (1) Non-insulin dependent type 2 diabetes mellitus Status: Chronic (2) Obesity Status: Chronic Qualifiers: Obesity type: unspecified obesity type Obesity classification: adult class 2 (BMI 35 - 39.9) Serious obesity comorbidity presence: unspecified whether serious comorbidity present Body mass index: BMI 37.0-37.9 Qualified Codes: E66.9 - Obesity, unspecified; Z68.37 - Body mass index [BMI] 37.0-37.9, adult (3) Severe sepsis Status: Acute (4) Social environment related disease Status: Acute (5) UTI (urinary tract infection) Status: Acute Qualifiers: Urinary tract infection type: acute cystitis Hematuria presence: without hematuria Qualified Codes: N30.00 - Acute cystitis without hematuria (6) CARY (acute kidney injury) Status: Acute (7) Debility Status: Acute BESSY PEREA MD Oct 23, 2020 09:17
[2020-10-23] MEDS: ENOXAPARIN 40 MG/0.4 ML (LOVENOX) SYR SQ SCH (10:26)
[2020-10-23] MEDS ORDERED: OLME20TA24 PO (11:20)
[2020-10-23] MEDS ORDERED: ZINC50TA58 PO (11:20)
[2020-10-23] MEDS ORDERED: INSU100I10 SC (11:20)
[2020-10-23] MEDS ORDERED: GLIM4TAB5 PO (11:20)
[2020-10-23] MEDS ORDERED: ACET-2267 PO (11:20)
--- NOTE | 2020-10-23 14:51 | Physical Therapy Evaluation ---
PT Evaluation-General Medical Diagnosis Admission Date Oct 22, 2020 at 17:40 Medical Diagnosis: UTI/CARY/social environment disorder/sepsis Onset Date: Oct 22, 2020 Therapy Diagnosis Therapy Diagnosis: impaired mobility/weakness Height/Weight Height (Feet): 5 Height (Inches): 3.00 Weight (Pounds): 221 Weight (Ounces): 3.0 Precautions Precautions/Isolations: Fall Prevention, Standard Precautions Referral Physician: Shana Reason for Referral: Evaluation/Treatment Medical History Pertinent Medical History: CVA, DM, HTN, OA, Renal Insufficiency Additional Medical History colon cancer Current History EMS secondary to AMS and inability to care for self Reviewed History: Yes Prior Prior Level of Function SCALE: Activities may be completed with or without assistive devices. 2-Fofvtuwawh-lvcqviu completes the activity by him/herself with no assistance from a helper. 5-Set-up or Clean-up Assistance-helper sets up or cleans up; patient completes activity. Tyrone assists only prior to or following the activity. 4-Supervision or Touching Assistance-helper provides verbal cues and/or touching/steadying and/or contact guard assistance as patient completes activity. Assistance may be provided throughout the activity or intermittently. 3-Partial/Moderate Assistance-helper does LESS THAN HALF the effort. Tyrone lifts, holds or supports trunk or limbs, but provides less than half the effort. 2-Substantial/Maximal Assistance-helper does MORE THAN HALF the effort. Tyrone lifts or holds trunk or limbs and provides more than half the effort. 3-Yajmuerjc-vjhvvk does ALL the effort. Patient does none of the effort to complete the activity. Or, the assistance of 2 or more helpers is required for the patient to complete the activity. If activity was not attempted, code reason: 7-Patient Refused. 9-Not Applicable-not attempted and the patient did not perform the activity before the current illness, exacerbation or injury. 10-Not Attempted due to Environmental Limitations-(lack of equipment, weather restraints, etc.). 88-Not Attempted due to Medical Conditions or Safety Concerns. Bed Mobility: 6 Transfers (B,C,W/C): 6 Gait: 6 Stairs: 6 Indoor Mobility (Ambulation): Independent Stairs: Independent Prior Devices Use: Walker PT Evaluation-Current Subjective Patient agrees to PT. Objective Patient Orientation: Confused Attachments: IV ROM/Strength ROM Lower Extremities bilateral LE limited due to pain Strength Lower Extremities 3-/5 grossly bilateral LE (no formal testing due to patient's confusion and tender to palpate bilateral LE) Integumentary/Posture Bladder Incontinence: No Posture severe trunk flexed posture in stand with FWW Neuromuscular (Tone, Coordination, Reflexes) diminished coordination with all mobility Sensory Vision: Functional Hearing: Functional Transfers Roll Left to Right (QC): 1 Lying to Sitting/Side of Bed(Q: 1 Sit to Stand (QC): 2 Chair/Vss-bc-Wvrjc Xfer(QC): 2 able to take shuffle steps to transfer to recliner with FWW Gait Does the Patient Walk?: No and Walking Goal IS indicated Mode of Locomotion: Walk Anticipated Mode of Locomotion: Walk Walk 10 feet (QC): 88 Walk 50 ft with 2 Turns(QC): 88 Walk 150 ft (QC): 88 Gait Assistive Device: FWW Balance Sitting Static: Fair Sitting Dynamic: Fair Standing Static: Fair Standing Dynamic: Fair Assessment/Needs 80 y.o. female, will benefit from skilled PT to address functional strength and mobility to improve current LOF. Rehab Potential: Fair PT Usp Goals Usp Goals PT Usp Goals Time Frame: Nov 04, 2020 Roll Left & Right (QC): 3 Sit to Lying (QC): 3 Lying-Sitting on Side/Bed(QC): 3 Sit to Stand (QC): 3 Chair/Vsf-or-Mqfni Xfer(QC): 3 Does the Patient Walk: Yes Walk 10 feet (QC): 3 Walk 50ft with 2 Turns (QC): 3 PT Plan Problem List Problem List: Activity Tolerance, Functional Strength, Safety, Balance, Gait, Transfer, Bed Mobility, ROM Treatment/Plan Treatment Plan: Continue Plan of Care Treatment Plan: Bed Mobility, Education, Functional Activity Odalys, Functional Strength, Gait, Safety, Therapeutic Exercise, Transfers Treatment Duration: Nov 04, 2020 Frequency: 6 times per week Estimated Hrs Per Day: .25 hour per day Patient and/or Family Agrees t: Yes Time/GCodes Time In: 1415 Time Out: 1434 Total Billed Treatment Time: 19 Total Billed Treatment 1 visit EVModC 19 min PAUL REYES PT Oct 23, 2020 14:51
[2020-10-23] MEDS: ACETAMINOPHEN 325 MG TABLET PO PRN ×2 (16:51→23:15)
[2020-10-23] MEDS: cefTRIAXone 1,000 MG/SWFI 10 ML IV PUSH IV SCH ×2 (17:23)
[2020-10-23] MEDS: MICONAZOLE 2% POWDER (DESENEX AF) 90 GM TOP SCH (20:18)
[2020-10-23] MEDS ORDERED: NON-FORMULARY MEDICATION 1 EA EA (Levetiracetam 750 MG) PO SCH (21:00)
[2020-10-24] VITALS (7 sets, daily range): BP systolic 139–194; BP diastolic 55–89
[2020-10-24] MEDS: inSUlin ASPART (NovoLOG) 1 UNIT/0.01 ML (CHARGE PER UNIT) SC SCH ×4 (05:38→20:20)
[2020-10-24] MEDS: NS IV 1000 ML 1,000 ML IV SCH (05:39)
[2020-10-24] MEDS: SERTRALINE 50 MG (ZOLOFT) TABLET PO SCH (09:00)
[2020-10-24] MEDS ORDERED: NON-FORMULARY MEDICATION 1 EA EA (Sertraline HCl 25 MG) PO SCH (09:00)
[2020-10-24] MEDS: MICONAZOLE 2% POWDER (DESENEX AF) 90 GM TOP SCH ×2 (09:02→20:41)
[2020-10-24] MEDS: ENOXAPARIN 40 MG/0.4 ML (LOVENOX) SYR SQ SCH (09:05)
--- NOTE | 2020-10-24 09:54 | Physical Therapy Daily Note ---
PT Daily Note-Current Subjective Patient reports she is feeling better today. Agrees to PT. Mental Status Patient Orientation: Normal For Age Attachments: IV Transfers SCALE: Activities may be completed with or without assistive devices. 1-Knbsrmkhsi-qyjcyty completes the activity by him/herself with no assistance from a helper. 5-Set-up or Clean-up Assistance-helper sets up or cleans up; patient completes activity. [place] assists only prior to or following the activity. 4-Supervision or Touching Assistance-helper provides verbal cues and/or touching/steadying and/or contact guard assistance as patient completes activity. Assistance may be provided throughout the activity or intermittently. 3-Partial/Moderate Assistance-helper does LESS THAN HALF the effort. [place] lifts, holds or supports trunk or limbs, but provides less than half the effort. 2-Substantial/Maximal Assistance-helper does MORE THAN HALF the effort. [place] lifts or holds trunk or limbs and provides more than half the effort. 3-Khymjbrbh-fxlmlv does ALL the effort. Patient does none of the effort to complete the activity. Or, the assistance of 2 or more helpers is required for the patient to complete the activity. If activity was not attempted, code reason: 7-Patient Refused. 9-Not Applicable-not attempted and the patient did not perform the activity before the current illness, exacerbation or injury. 10-Not Attempted due to Environmental Limitations-(lack of equipment, weather restraints, etc.). 88-Not Attempted due to Medical Conditions or Safety Concerns. Lying to Sitting/Side of Bed(Q: 2 Sit to Stand (QC): 3 Chair/Uqv-cn-Xwpbn Xfer(QC): 3 Gait Training Does the Patient Walk?: Yes Distance: 10' Walk 10 feet (QC): 3 Gait Assistive Device: FWW severe trunk flexed posture/functional gait sequence Exercises Seated Therapy Exercises: Ankle pumps, Long arc quads Seated Reps: 12 (2 sets) Assessment Patient progressing slowly. Noted incontinence of urine. PT Flotation Tender Helper Goals Flotation Tender Helper Goals PT Fdc Goals Time Frame: Nov 04, 2020 Roll Left & Right (QC): 3 Sit to Lying (QC): 3 Lying-Sitting on Side/Bed(QC): 3 Sit to Stand (QC): 3 Chair/Wtb-ch-Bdzqx Xfer(QC): 3 Does the Patient Walk: Yes Walk 10 feet (QC): 3 Walk 50ft with 2 Turns (QC): 3 PT Plan Treatment/Plan Treatment Plan: Continue Plan of Care Treatment Plan: Bed Mobility, Education, Functional Activity Odalys, Functional Strength, Gait, Safety, Therapeutic Exercise, Transfers Treatment Duration: Nov 04, 2020 Frequency: 6 times per week Estimated Hrs Per Day: .25 hour per day Patient and/or Family Agrees t: Yes Time/GCodes Time In: 859 Time Out: 910 Total Billed Treatment Time: 11 Total Billed Treatment 1 visit FA 11 min PAUL REYES PT Oct 24, 2020 09:54
--- NOTE | 2020-10-24 10:02 | Progress Note - Hospitalist ---
Subjective HPI/CC On Admission Date Seen by Provider: Oct 24, 2020 Time Seen by Provider: 09:57 Pt is a 80yoCF with a PMH of HTN, NIDDMII, CVA, CKD, colon and breast cancer who presented to the ER via EMS due to weakness. She is unable to provide much history and instead is focused on eating her pancakes at her table. She was able to tell me that she has been weak for the past week or so but is otherwise unable to tell me any symptoms. Apparently EMS was summoned to her house (she is unsure why) and they found her unable to get off the commode. EMS found her in filthy conditions with urine/feces all throughout her home and on her person. She does not relay any of this to me. Subjective/Events-last exam Pt reports feeling better today. Strength better today. About to work with PT. No complaints. Discussed plan for SNF and she is still agreeable. Focused Exam Lactate Level 10/22/20 18:00: Lactic Acid Level 2.14*H 10/22/20 23:27: Lactic Acid Level 1.85 Time of Focused Exam: 17:49 Objective Exam Vital Signs Vital Signs Date Time Temp Pulse Resp B/P (MAP) Pulse Ox O2 Delivery O2 Flow Rate FiO2 10/24/20 08:00 97 Room Air 10/24/20 07:57 35.6 61 20 152/67 (95) Capillary Refill : Less Than 3 Seconds General Appearance: No Apparent Distress, Chronically ill, Obese Respiratory: Lungs Clear, No Respiratory Distress Cardiovascular: Regular Rate, Rhythm, No Murmur Neurologic/Psychiatric: Alert, Oriented x3 Results/Procedures Lab Patient resulted labs reviewed. Imaging: Reviewed Imaging Report Assessment/Plan Assessment and Plan Assess & Plan/Chief Complaint Severe Sepsis from UTI- sepsis resolved CARY on CKD Stage 3 Creatinine improved today, appears to have baseline around 1.5 Continue on IV abx Urine culture growing e coli, await sensitivities DC IVF Hold home diuretics- likely resume tomorrow if renal function ok Blood culture with GPC in 1 tube, await [facility] NIDDMII Continue home meds as able SSI HTN Continue home BP meds History of Stroke Debility PT/OT Awaiting approval from SNF History of Breast cancer history of colon cancer no acute needs DVT ppx: Lovenox Diagnosis/Problems Diagnosis/Problems (1) Non-insulin dependent type 2 diabetes mellitus Status: Chronic (2) Obesity Status: Chronic Qualifiers: Obesity type: unspecified obesity type Obesity classification: adult class 2 (BMI 35 - 39.9) Serious obesity comorbidity presence: unspecified whether serious comorbidity present Body mass index: BMI 37.0-37.9 Qualified Codes: E66.9 - Obesity, unspecified; Z68.37 - Body mass index [BMI] 37.0-37.9, adult (3) Severe sepsis Status: Acute (4) Social environment related disease Status: Acute (5) UTI (urinary tract infection) Status: Acute Qualifiers: Urinary tract infection type: acute cystitis Hematuria presence: without hematuria Qualified Codes: N30.00 - Acute cystitis without hematuria (6) CARY (acute kidney injury) Status: Acute (7) Debility Status: Acute BESSY PEREA MD Oct 24, 2020 10:02
[2020-10-24 10:57] LABS: HEMATOCRIT 28 % (35-52); MEAN CORPUSCULAR HEMOGLOBIN 32 pg (25-34); MEAN CORPUSCULAR HGB CONC 32 g/dL (32-36); MEAN CORPUSCULAR VOLUME 101 fL (80-99); PLATELET COUNT 199 10^3/uL (130-400); WHITE BLOOD COUNT 5.3 10^3/uL (4.3-11.0)
[2020-10-24 11:16] LABS: CALCIUM 9.9 MG/DL (8.5-10.1); CREATININE SERUM 1.03 MG/DL (0.60-1.30); POTASSIUM 4.3 MMOL/L (3.6-5.0)
[2020-10-24] MEDS: cefTRIAXone 1,000 MG/SWFI 10 ML IV PUSH IV SCH ×2 (17:24)
[2020-10-24] MEDS: ACETAMINOPHEN 500 MG TAB (TYLENOL) PO SCH (20:41)
[2020-10-25 04:42] VITALS: BP 151/67
[2020-10-25] MEDS: inSUlin ASPART (NovoLOG) 1 UNIT/0.01 ML (CHARGE PER UNIT) SC SCH (05:56)
[2020-10-25 07:39] VITALS: BP 148/63
[2020-10-25] MEDS: ACETAMINOPHEN 500 MG TAB (TYLENOL) PO SCH (07:57)
[2020-10-25] MEDS: SERTRALINE 50 MG (ZOLOFT) TABLET PO SCH (07:58)
[2020-10-25] MEDS: MICONAZOLE 2% POWDER (DESENEX AF) 90 GM TOP SCH (07:59)
[2020-10-25] MEDS ORDERED: PANTOPRAZOLE 40 MG (PROTONIX) TAB PO SCH (09:00)
[2020-10-25] MEDS ORDERED: LETROZOLE 2.5 MG (FEMARA) TAB PO SCH (09:00)
[2020-10-25] MEDS ORDERED: NON-FORMULARY MEDICATION 1 EA EA (Insulin Glargine,Hum.rec.anlog (Lantus Solostar) 20 UNIT SC SCH (09:00)
[2020-10-25] MEDS ORDERED: FERROUS SULF 325 MG (IRON) TAB PO SCH (09:00)
[2020-10-25] MEDS ORDERED: ASPIRIN E.C. 81 MG (ECOTRIN) TAB PO SCH (09:00)
[2020-10-25] MEDS: ENOXAPARIN 40 MG/0.4 ML (LOVENOX) SYR SQ SCH (09:17)
--- NOTE | 2020-10-25 09:27 | Discharge Summary ---
Diagnosis/Chief Complaint Date of Admission Oct 22, 2020 at 17:40 Date of Discharge Admission Diagnosis Severe Sepsis from UTI Primary Care Emerson Odom DO Discharge Diagnosis (1) Non-insulin dependent type 2 diabetes mellitus Status: Chronic (2) Obesity Status: Chronic (3) Severe sepsis Status: Acute (4) Social environment related disease Status: Acute (5) UTI (urinary tract infection) Status: Acute (6) CARY (acute kidney injury) Status: Acute (7) Debility Status: Acute Discharge Summary Discharge Physical Exam Allergies: Coded Allergies: No Known Drug Allergies (Unverified , 10/29/18) Vitals & I&Os Vital Signs Date Time Temp Pulse Resp B/P (MAP) Pulse Ox O2 Delivery O2 Flow Rate FiO2 10/25/20 08:00 Room Air 10/25/20 07:39 36.2 59 22 148/63 (91) 93 Hospital Course Labs (last 24 hrs) Laboratory Tests 10/24/20 10:22: Glucometer 218H 10/24/20 10:51: White Blood Count 5.3, Red Blood Count 2.78L, Hemoglobin 9.0L, Hematocrit 28L, Mean Corpuscular Volume 101H, Mean Corpuscular Hemoglobin 32, Mean Corpuscular Hemoglobin Concent 32, Red Cell Distribution Width 12.9, Platelet Count 199, Me an Platelet Volume 10.0, Sodium Level 138, Potassium Level 4.3, Chloride Level 111H, Carbon Dioxide Level 20L, Anion Gap 7, Blood Urea Nitrogen 24H, Creatinine 1.03, Estimat Glomerular Filtration Rate 52, BUN/Creatinine Ratio 23, Glucose Level 245H, Calcium Level 9.9 10/24/20 15:33: Glucometer 242H 10/24/20 17:59: Influenza Type A (RT-PCR) Not Detected, Influenza Type B (RT-PCR) Not Detected, SARS-CoV-2 RNA (RT-PCR) Not Detected 10/24/20 20:18: Glucometer 193H 10/25/20 05:55: Glucometer 195H Microbiology 10/22/20 Blood Culture - Preliminary, Resulted No growth 10/22/20 Urine Culture - Preliminary, Resulted Escherichia coli Patient resulted labs reviewed. Pending Labs Laboratory Tests 10/25/20 05:55: Glucometer 195 Imaging: Reviewed Imaging Report Discharge Home Medications: Active Scripts Active Reported Zinc 50 Mg Tablet 50 Mg PO DAILY Tylenol Extra Strength (Acetaminophen) 500 Mg Tablet 500 Mg PO BID TAKES 650MG +500MG TO EQUAL 1150MG DAILY Glimepiride 4 Mg Tablet 4 Mg PO DAILY Olmesartan Medoxomil 20 Mg Tablet 20 Mg PO DAILY Lantus Solostar (Insulin Glargine,Hum.rec.anlog) 100 Unit/1 Ml Insuln.pen 20 Units SC DAILY Tylenol Arthritis (Acetaminophen) 650 Mg Tablet.er 650 Mg PO BID TAKES 650MG +500MG TO EQUAL 1150MG DAILY I-Caps with Lutein-Bishop 3 Sfg (Antiox#10/Om3/Dha/Epa/Lut/Zeax) 1 Each Capsule 1 Each PO BID Levetiracetam 750 Mg Tablet 750 Mg PO BID Carvedilol 12.5 Mg Tablet 12.5 Mg PO BID Atorvastatin Calcium 40 Mg Tablet 40 Mg PO DAILY Sertraline HCl 25 Mg Tablet 25 Mg PO DAILY Pantoprazole Sodium 40 Mg Tablet.dr 40 Mg PO DAILY Furosemide 40 Mg Tablet 40 Mg PO DAILY Aspirin EC (Aspirin) 81 Mg Tablet.dr 81 Mg PO DAILY Letrozole 2.5 Mg Tablet 2.5 Mg PO DAILY Fish Oil 1,000 mg Capsule (Bishop 3 Polyunsat Fatty Acids) 1,000 Mg Cap 1,000 Mg PO BID Iron (Ferrous Sulfate) 325 Mg Tablet 325 Mg PO DAILY Januvia (Sitagliptin Phosphate) 100 Mg Tablet 100 Mg PO DAILY Instructions to patient/family Please see electronic discharge instructions given to patient. Problem Qualifiers (1) Obesity: Obesity type: unspecified obesity type Obesity classification: adult class 2 (BMI 35 - 39.9) Serious obesity comorbidity presence: unspecified whether serious comorbidity present Body mass index: BMI 37.0-37.9 Qualified Codes: E66.9 - Obesity, unspecified; Z68.37 - Body mass index [BMI] 37.0-37.9, adult (2) UTI (urinary tract infection): Urinary tract infection type: acute cystitis Hematuria presence: without hematuria Qualified Codes: N30.00 - Acute cystitis without hematuria BESSY PEREA MD Oct 25, 2020 09:27
--- NOTE | 2020-10-25 09:29 | Discharge Inst-Skilled Nursing ---
Discharge Inst-Skilled NF Chief Complaint Pt is a 80yoCF with a PMH of HTN, NIDDMII, CVA, CKD, colon and breast cancer who presented to the ER via EMS due to weakness. She is unable to provide much history and instead is focused on eating her pancakes at her table. She was able to tell me that she has been weak for the past week or so but is otherwise unable to tell me any symptoms. Apparently EMS was summoned to her house (she is unsure why) and they found her unable to get off the commode. EMS found her in filthy conditions with urine/feces all throughout her home and on her person. She does not relay any of this to me. Consult/Follow Up/Orders Follow Up Appt.: With Dr Odom in 1 week Skilled NF Admit to: [facility] Certification ([facility]) I certify that SNF services are required to be given on an inpatient basis because of the above named patient's need for custodial care on a continuing basis for the conditions(s) for which he/she was receiving inpatient hospital services prior to his/her transfer to the SNF. [facility] Order: Nursing Services, Trolley Wire Installer-Evaluate & Treat, Physical Therapy-Evaluate & Treat Oxygen Delivery Method: Room Air Discharge Diet: No Restrictions Resuscitation Status: Do Not Resuscitate New & Resume Previous Orders Bessy Saldana Oct 25, 2020 09:29 BESSY SALDANA MD Oct 25, 2020 09:29
--- NOTE | 2020-10-25 09:53 | Discharge Summary ---
Diagnosis/Chief Complaint Date of Admission Oct 22, 2020 at 17:40 Date of Discharge Discharge Date: Oct 25, 2020 Admission Diagnosis Severe Sepsis from UTI Primary Care Emerson Odom DO Discharge Diagnosis (1) Non-insulin dependent type 2 diabetes mellitus Status: Chronic (2) Obesity Status: Chronic (3) Severe sepsis Status: Acute (4) Social environment related disease Status: Acute (5) UTI (urinary tract infection) Status: Acute (6) CARY (acute kidney injury) Status: Acute (7) Debility Status: Acute Discharge Summary Discharge Physical Exam Allergies: Coded Allergies: No Known Drug Allergies (Unverified , 10/29/18) Vitals & I&Os Vital Signs Date Time Temp Pulse Resp B/P (MAP) Pulse Ox O2 Delivery O2 Flow Rate FiO2 10/25/20 08:00 Room Air 10/25/20 07:39 36.2 59 22 148/63 (91) 93 Hospital Course Labs (last 24 hrs) Laboratory Tests 10/24/20 10:22: Glucometer 218H 10/24/20 10:51: White Blood Count 5.3, Red Blood Count 2.78L, Hemoglobin 9.0L, Hematocrit 28L, Mean Corpuscular Volume 101H, Mean Corpuscular Hemoglobin 32, Mean Corpuscular Hemoglobin Concent 32, Red Cell Distribution Width 12.9, Platelet Count 199, Mean Platelet Volume 10.0, Sodium Level 138, Potassium Level 4.3, Chloride Level 111H, Carbon Dioxide Level 20L, Anion Gap 7, Blood Urea Nitrogen 24H, Creatinine 1.03, Estimat Glomerular Filtration Rate 52, BUN/Creatinine Ratio 23, Glucose Level 245H, Calcium Level 9.9 10/24/20 15:33: Glucometer 242H 10/24/20 17:59: Influenza Type A (RT-PCR) Not Detected, Influenza Type B (RT-PCR) Not Detected, SARS-CoV-2 RNA (RT-PCR) Not Detected 10/24/20 20:18: Glucometer 193H 10/25/20 05:55: Glucometer 195H Microbiology 10/22/20 Blood Culture - Preliminary, Resulted No growth 10/22/20 Urine Culture - Final, Complete Escherichia coli Patient resulted labs reviewed. Pending Labs Laboratory Tests 10/25/20 05:55: Glucometer 195 Imaging: Reviewed Imaging Report Discharge Home Medications: Active Scripts Active Reported Zinc 50 Mg Tablet 50 Mg PO DAILY Tylenol Extra Strength (Acetaminophen) 500 Mg Tablet 500 Mg PO BID TAKES 650MG +500MG TO EQUAL 1150MG DAILY Glimepiride 4 Mg Tablet 4 Mg PO DAILY Olmesartan Medoxomil 20 Mg Tablet 20 Mg PO DAILY Lantus Solostar (Insulin Glargine,Hum.rec.anlog) 100 Unit/1 Ml Insuln.pen 20 Units SC DAILY Tylenol Arthritis (Acetaminophen) 650 Mg Tablet.er 650 Mg PO BID TAKES 650MG +500MG TO EQUAL 1150MG DAILY I-Caps with Lutein-Bally 3 Sfg (Antiox#10/Om3/Dha/Epa/Lut/Zeax) 1 Each Capsule 1 Each PO BID Levetiracetam 750 Mg Tablet 750 Mg PO BID Carvedilol 12.5 Mg Tablet 12.5 Mg PO BID Atorvastatin Calcium 40 Mg Tablet 40 Mg PO DAILY Sertraline HCl 25 Mg Tablet 25 Mg PO DAILY Pantoprazole Sodium 40 Mg Tablet.dr 40 Mg PO DAILY Furosemide 40 Mg Tablet 40 Mg PO DAILY Aspirin EC (Aspirin) 81 Mg Tablet.dr 81 Mg PO DAILY Letrozole 2.5 Mg Tablet 2.5 Mg PO DAILY Fish Oil 1,000 mg Capsule (Bally 3 Polyunsat Fatty Acids) 1,000 Mg Cap 1,000 Mg PO BID Iron (Ferrous Sulfate) 325 Mg Tablet 325 Mg PO DAILY Januvia (Sitagliptin Phosphate) 100 Mg Tablet 100 Mg PO DAILY Instructions to patient/family Please see electronic discharge instructions given to patient. Problem Qualifiers (1) Obesity: Obesity type: unspecified obesity type Obesity classification: adult class 2 (BMI 35 - 39.9) Serious obesity comorbidity presence: unspecified whether serious comorbidity present Body mass index: BMI 37.0-37.9 Qualified Codes: E66.9 - Obesity, unspecified; Z68.37 - Body mass index [BMI] 37.0-37.9, adult (2) UTI (urinary tract infection): Urinary tract infection type: acute cystitis Hematuria presence: without hematuria Qualified Codes: N30.00 - Acute cystitis without hematuria BESSY PEREA MD Oct 25, 2020 09:53
[2020-10-25 11:16] VITALS: BP 148/63
== END 2020-10-25 11:18 | DRG 872 ==
LOC: EDUNIT# 15:29 → ER 15:31 → 4TH 17:40
PROVIDERS: ADMIT Internal Medicine; ATTEND Internal Medicine
DX: A41.51 Sepsis due to Escherichia coli [E. coli] (principal); N30.00 Acute cystitis without hematuria; N17.9 Acute kidney failure, unspecified; F05 Delirium due to known physiological condition; R65.20 Severe sepsis without septic shock; E66.9 Obesity, unspecified; Z68.37 Body mass index [BMI] 37.0-37.9, adult; R53.81 Other malaise; I12.9 Hypertensive chronic kidney disease with stage 1 through stage 4 chronic kidney disease, or unspecified chronic kidney disease; E11.22 Type 2 diabetes mellitus with diabetic chronic kidney disease; N18.30 Chronic kidney disease, stage 3 unspecified; E78.00 Pure hypercholesterolemia, unspecified; Z85.3 Personal history of malignant neoplasm of breast; Z85.038 Personal history of other malignant neoplasm of large intestine; Z66 Do not resuscitate; Z79.82 Long term (current) use of aspirin; Z79.84 Long term (current) use of oral hypoglycemic drugs; Z79.899 Other long term (current) drug therapy; Z86.73 Personal history of transient ischemic attack (TIA), and cerebral infarction without residual deficits; Z60.8 Other problems related to social environment
CPT/HCPCS: 36415; 51701; 71045; 80048; 80053; 81000; 82550; 82947; 83605; 83880; 85025; 85027; 86141; 87040; 87077; 87088; 87186; 87636

== ENCOUNTER 2020-11-23 12:40 | Observation (INO) | payer MEDICARE, BC ==
[~2020-11-23] VITALS: Ht 160 cm; Wt 105.5 kg
[~2020-11-23 12:40] MED LIST changes: +ACET-2267 PO; +INSU100I10 SC; +OLME20TA24 PO; +ZINC50TA58 PO
--- NOTE | 2020-11-23 13:31 | ED General ---
General Chief Complaint: General Problems/Pain Stated Complaint: WEAKNESS,UTI Nursing Triage Note: PT BROUGHT IN BY [facility] FROM HOME WITH COMPLAINT OF INCONTINENCE. PT WAS SENT BY HOME HEALTH FOR EVALUATION. PT WAS DISCHARGED FROM [facility] YESTERDAY, FAMILY TOOK HER HOME, AND PT HAS BEEN ON COUCH SINCE. PT IS COMPLAINING OF KNEE PAIN. Source of Information: Patient Exam Limitations: No Limitations History of Present Illness Date Seen by Provider: Nov 23, 2020 Time Seen by Provider: 13:10 Initial Comments Patient is a 80-year-old female who presents to the emergency department today with a chief complaint of bilateral knee pain left greater than right. Patient was in the hospital about a month ago with sepsis due to urinary tract infection was subsequently sent to [facility] for rehab where she had physical therapy and strengthening. She was discharged yesterday. Patient states she has had ongoing bilateral knee pain especially when she gets up and attempts to ambulate. She states home health came today and attempted to get her up but they were unable to secondary to some generalized weakness. She attributes this also to the knee pain and her apprehension with getting up and walking secondary to that pain. No fevers or chills. No shortness of breath or cough. No diarrhea. She denies burning with urination. Her incontinence is likely due to the fact that she is not getting up to walk because of the pain in her knees. She is alert and oriented, pleasant and in no acute distress with stable vital signs on arrival. She has significant lower extremity edema. She states that she is not on a diuretic. All other review of systems reviewed and negative except as stated. Timing/Duration: 4-6 Hours Severity: Moderate Modifying Factors: improves with Immobilization; worse with Movement Associated Systoms: Denies Symptoms Allergies and Home Medications Allergies Coded Allergies: No Known Drug Allergies (Unverified , 10/29/18) Patient Home Medication List Home Medication List Reviewed: Yes Acetaminophen (Tylenol Arthritis) 650 Mg Tablet.er, 650 MG PO BID, (Reported) Entered as Reported by: SIA GARCIA on 10/26/19 1547 Acetaminophen (Tylenol Extra Strength) 500 Mg Tablet, 500 MG PO BID, (Reported) Entered as Reported by: SIA GARCIA on 10/23/20 1120 Antiox#10/Om3/Dha/Epa/Lut/Zeax (I-Caps with Lutein-Allen 3 Sfg) 1 Each Capsule, 1 EACH PO BID, (Reported) Entered as Reported by: SIA GARCIA on 10/26/19 1546 Aspirin (Aspirin EC) 81 Mg Tablet.dr, 81 MG PO DAILY, (Reported) Entered as Reported by: SIA GARCIA on 10/26/19 1546 Atorvastatin Calcium (Atorvastatin Calcium) 40 Mg Tablet, 40 MG PO DAILY, (Reported) Entered as Reported by: SIA GARCIA on 10/26/19 154 Carvedilol (Carvedilol) 12.5 Mg Tablet, 12.5 MG PO BID, (Reported) Entered as Reported by: SIA GARCIA on 10/26/19 1546 Ferrous Sulfate (Iron) 325 Mg Tablet, 325 MG PO DAILY, (Reported) Entered as Reported by: JUD DUMONT on 10/29/18 0859 Furosemide (Furosemide) 40 Mg Tablet, 40 MG PO DAILY, (Reported) Entered as Reported by: SIA GARCIA on 10/26/19 154 Glimepiride (Glimepiride) 4 Mg Tablet, 4 MG PO DAILY, (Reported) Entered as Reported by: SIA GARCIA on 10/23/20 1120 Insulin Glargine,Hum.rec.anlog (Lantus Solostar) 100 Unit/1 Ml Insuln.pen, 20 UNITS SC DAILY, (Reported) Entered as Reported by: SIA GARCIA on 10/23/20 1120 Letrozole (Letrozole) 2.5 Mg Tablet, 2.5 MG PO DAILY, (Reported) Entered as Reported by: BENNIE ELLIOTT on 05/04/19 1544 Levetiracetam (Levetiracetam) 750 Mg Tablet, 750 MG PO BID, (Reported) Entered as Reported by: SIA GARCIA on 10/26/19 154 Olmesartan Medoxomil (Olmesartan Medoxomil) 20 Mg Tablet, 20 MG PO DAILY, (Reported) Entered as Reported by: SIA GARCIA on 10/23/20 1120 Allen 3 Polyunsat Fatty Acids (Fish Oil 1,000 mg Capsule) 1,000 Mg Cap, 1,000 MG PO BID, (Reported) Entered as Reported by: JUD DUMONT on 10/29/18 0859 Pantoprazole Sodium (Pantoprazole Sodium) 40 Mg Tablet.dr, 40 MG PO DAILY, (Reported) Entered as Reported by: SIA GARCIA on 10/26/19 1546 Sertraline HCl (Sertraline HCl) 25 Mg Tablet, 25 MG PO DAILY, (Reported) Entered as Reported by: SIA GARCIA on 10/26/19 1546 Sitagliptin Phosphate (Januvia) 100 Mg Tablet, 100 MG PO DAILY, (Reported) Entered as Reported by: JUD DUMONT on 01/05/16 1338 Zinc (Zinc) 50 Mg Tablet, 50 MG PO DAILY, (Reported) Entered as Reported by: SIA GARCIA on 10/23/20 1120 Review of Systems Review of Systems Constitutional: see HPI EENTM: no symptoms reported Respiratory: no symptoms reported Cardiovascular: no symptoms reported Gastrointestinal: no symptoms reported Genitourinary: incontinence : No Musculoskeletal: joint pain (bilateral knee pain. no falls but "twisted" her left knee a couple of days ago while up with physical therapy.) Skin: no symptoms reported Psychiatric/Neurological: No Symptoms Reported All Other Systems Reviewed Negative Unless Noted: Yes Past Ifyxvqe-Nnrobv-Iqbijv Hx Patient Social History Tobacco Use?: No Use of E-Cig and/or Vaping dev: No Substance use?: No Alcohol Use?: No Pt feels they are or have been: No Immunizations Up To Date Tetanus Booster (TDap): Unknown PED Vaccines UTD: Yes First/Initial COVID19 Vaccinat: vaccinated 2020 Second COVID19 Vaccination Darío: 2020 Seasonal Allergies Seasonal Allergies: Yes (MILD) Past Medical History Surgeries: Yes (CATARACTS, GRAVEL REMOVED FROM KNEE, D&C, LIPOMA , R BREAST LUMP, COLECTOMY) Abdominal, Tonsillectomy, Tubal Ligation Respiratory: No Cardiac: Yes High Cholesterol, Hypertension Neurological: Yes (CVA- APRIL 2019) Stroke Reproductive Disorders: No 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 Sexually Transmitted Disease: No HIV/AIDS: No Genitourinary: Yes Bladder Infection Gastrointestinal: Yes (COLON CANCER) Musculoskeletal: Yes Degenerate Disk Disease, Arthritis, Chronic Back Pain Endocrine: Yes Diabetes, Non-Insulin dep HEENT: Yes (GLASSES, DENTURES) Loss of Vision: Denies Hearing Impairment: Denies Cancer: Yes Breast, Colon Did You Recieve Any Treatments: Yes What Type of Treatment Did You: Surgical Intervention Psychosocial: Yes (SITUATIONAL ) Depression Integumentary: No Blood Disorders: No Adverse Reaction/Blood Tranf: No (N/A) Family Medical History Alcoholism 19 FATHER Completed stroke 19 MOTHER Dementia 19 MOTHER Diabetes mellitus 19 MOTHER G8 BROTHER FH: breast cancer G8 SISTER FH: uterine cancer 19 MOTHER Hypertension G8 BROTHER Respiratory disorder 19 FATHER Physical Exam Vital Signs Vital Signs - First Documented 11/23/20 12:40 Temp 36.3 Pulse 68 Resp 17 Pulse Ox 100 O2 Delivery Room Air Capillary Refill : Less Than 3 Seconds Height, Weight, BMI Height: 5'3.00" Weight: 221lbs. 3.0oz. 100.735851fs; 41.00 BMI Method: General Appearance: No Apparent Distress, WD/WN Eyes: Bilateral Eye Normal Inspection HEENT: PERRL/EOMI Neck: Normal Inspection Respiratory: Lungs Clear, Normal Breath Sounds, No Accessory Muscle Use, No Respiratory Distress Cardiovascular: Regular Rate, Rhythm, Other (2-3+ pitting edema) Gastrointestinal: Normal Bowel Sounds, Non Tender, Soft Extremity: Pedal Edema Neurologic/Psychiatric: Alert, Oriented x3, No Motor/Sensory Deficits, Normal Mood/Affect, learning and development assistant II-XII Norm as Tested Skin: Normal Color, Warm/Dry Progress/Results/Core Measures Suspected Sepsis SIRS Temperature: Pulse: 68 Respiratory Rate: 17 Laboratory Tests 11/23/20 13:00: White Blood Count 6.6 Blood Pressure / Mean: Laboratory Tests 11/23/20 13:00: Creatinine 0.95, Platelet Count 218 Results/Orders Lab Results Laboratory Tests Test 11/23/20 13:00 Range/Units White Blood Count 6.6 4.3-11.0 10^3/uL Red Blood Count 3.39 L 3.80-5.11 10^6/uL Hemoglobin 10.6 L 11.5-16.0 g/dL Hematocrit 34 L 35-52 % Mean Corpuscular Volume 100 H 80-99 fL Mean Corpuscular Hemoglobin 31 25-34 pg Mean Corpuscular Hemoglobin Concent 31 L 32-36 g/dL Red Cell Distribution Width 13.2 10.0-14.5 % Platelet Count 218 130-400 10^3/uL Mean Platelet Volume 10.1 9.0-12.2 fL Immature Granulocyte % (Auto) 1 % Neutrophils (%) (Auto) 72 42-75 % Lymphocytes (%) (Auto) 15 12-44 % Monocytes (%) (Auto) 9 0-12 % Eosinophils (%) (Auto) 3 0-10 % Basophils (%) (Auto) 1 0-10 % Neutrophils # (Auto) 4.8 1.8-7.8 10^3/uL Lymphocytes # (Auto) 1.0 1.0-4.0 10^3/uL Monocytes # (Auto) 0.6 0.0-1.0 10^3/uL Eosinophils # (Auto) 0.2 0.0-0.3 10^3/uL Basophils # (Auto) 0.0 0.0-0.1 10^3/uL Immature Granulocyte # (Auto) 0.0 0.0-0.1 10^3/uL Urine Color YELLOW Urine Clarity CLEAR Urine pH 6.5 5-9 Urine Specific [place] 1.015 L 1.016-1.022 Urine Protein 2+ H NEGATIVE Urine Glucose (UA) NEGATIVE NEGATIVE Urine Ketones NEGATIVE NEGATIVE Urine Nitrite NEGATIVE NEGATIVE Urine Bilirubin NEGATIVE NEGATIVE Urine Urobilinogen 0.2 < = 1.0 MG/DL Urine Leukocyte Esterase 1+ H NEGATIVE Urine RBC (Auto) NEGATIVE NEGATIVE Urine RBC NONE /HPF Urine WBC 10-25 H /HPF Urine Crystals NONE /LPF Urine Bacteria LARGE H /HPF Urine Casts NONE /LPF Urine Mucus NEGATIVE /LPF Urine Culture Indicated YES Sodium Level 139 135-145 MMOL/L Potassium Level 4.5 3.6-5.0 MMOL/L Chloride Level 104 98-107 MMOL/L Carbon Dioxide Level 25 21-32 MMOL/L Anion Gap 10 5-14 MMOL/L Blood Urea Nitrogen 18 7-18 MG/DL Creatinine 0.95 0.60-1.30 MG/DL Estimat Glomerular Filtration Rate 57 BUN/Creatinine Ratio 19 Glucose Level 149 H 70-105 MG/DL Calcium Level 11.1 H 8.5-10.1 MG/DL My Orders Orders - ROBERT YIP MD Ed Iv/Invasive Line Start (11/23/20 13:22) Cbc With Automated Diff (11/23/20 13:22) Ua Culture If Indicated (11/23/20 13:22) Basic Metabolic Panel (11/23/20 13:22) Tramadol Tablet (Ultram Tablet) (11/23/20 13:30) Urine Culture (11/23/20 13:00) Ceftriaxone (Rocephin) (11/23/20 15:00) Medications Given in ED Current Medications Medications Dose Ordered Sig/Byron Route Start Time Stop Time Status Last Admin Dose Admin Ceftriaxone Sodium 1000 mg/ Sterile Water 10 ml @ 200 mls/hr ONCE ONCE IV 11/23/20 15:00 11/23/20 15:11 DC 11/23/20 15:18 200 MLS/HR Tramadol HCl 50 mg ONCE ONCE PO 11/23/20 13:30 11/23/20 13:31 DC 11/23/20 13:40 50 MG Vital Signs/I&O 11/23/20 12:40 Temp 36.3 Pulse 68 Resp 17 B/P (MAP) Pulse Ox 100 O2 Delivery Room Air Capillary Refill : Less Than 3 Seconds Progress Note : Time: 15:16 Progress Note I was i nformed by the nnurses who initially triaged the patient that EMS reported the patient's home/living conditions are "deplorable" and that she arrived in urine soaked clothes. that she had not been off the chair all night since she was [facility]. Patient voices interest in possible a long term/hospice or assisted living. SHe may need temporary readmission to rehab here plending placement. SHe is being treated for a recurrent UTI. i checked bacterial sensitivities from her last UTI and she is pansensitive to antibiotics. ROcephin here in the department and keflex for home for 7 days. the nurses are going to "hotline" her conditions. 1556 Plant Care Worker in the [facility] to attempt to get the patient placed today. She is not a candidate for [facility] rehab as she would be unable to perform 3h of rehab a day [address] saldana, accepts for observation admission Departure Communication (Admissions) Time/Spoke to Admitting Phy: 16:22 Dr Saldana Impression Primary Impression: Urinary tract infection Qualified Codes: N30.00 - Acute cystitis without hematuria Additional Impressions: Chronic knee pain Qualified Codes: M25.561 - Pain in right knee; M25.562 - Pain in left knee; G89.29 - Other chronic pain Generalized weakness Disposition: ADMITTED INPATIENT Condition: Stable Admissions Decision to Admit Reason: Admit from ER (General) Decision to Admit/Date: Nov 23, 2020 Time/Decision to Admit Time: 16:22 Departure-Patient Inst. Referrals: RAYO SANDHU DO (PCP/Family) Primary Care Physician ROBERT YIP MD Nov 23, 2020 13:31
[2020-11-23 13:39] LABS: BASOPHILS % (AUTO) 1 % (0-10); EOSINOPHILS # (AUTO) 0.2 10^3/uL (0.0-0.3); EOSINOPHILS % (AUTO) 3 % (0-10); HEMATOCRIT 34 % (35-52); HEMOGLOBIN 10.6 g/dL (11.5-16.0); LYMPHOCYTES % (AUTO) 15 % (12-44); MEAN CORPUSCULAR HEMOGLOBIN 31 pg (25-34); MEAN CORPUSCULAR HGB CONC 31 g/dL (32-36); MEAN CORPUSCULAR VOLUME 100 fL (80-99); MEAN PLATELET VOLUME 10.1 fL (9.0-12.2); MONOCYTES # (AUTO) 0.6 10^3/uL (0.0-1.0); MONOCYTES % (AUTO) 9 % (0-12); NEUTROPHILS # (AUTO) 4.8 10^3/uL (1.8-7.8); NEUTROPHILS % (AUTO) 72 % (42-75); PLATELET COUNT 218 10^3/uL (130-400); WHITE BLOOD COUNT 6.6 10^3/uL (4.3-11.0)
[2020-11-23 13:40] LABS: BILIRUBIN,URINE NEGATIVE (NEGATIVE); CLARITY,URINE CLEAR; COLOR,URINE YELLOW; GLUCOSE, URINE (UA) NEGATIVE (NEGATIVE); KETONES,URINE NEGATIVE (NEGATIVE); LEUKOCYTE ESTERASE ,URINE 1+ (NEGATIVE); NITRITE,URINE NEGATIVE (NEGATIVE); PH,URINE 6.5 (5-9); PROTEIN,URINE 2+ (NEGATIVE)
[2020-11-23 13:44] LABS: POTASSIUM 4.5 MMOL/L (3.6-5.0)
[2020-11-23 13:45] LABS: CALCIUM 11.1 MG/DL (8.5-10.1)
[2020-11-23 13:49] LABS: CREATININE SERUM 0.95 MG/DL (0.60-1.30)
[2020-11-23 13:56] LABS: BACTERIA,URINE LARGE /HPF
[2020-11-23] MEDS ORDERED: cefTRIAXone 1,000 MG in WATER (STERILE) FOR INJECTION 10 ML IV ONE (15:00)
[2020-11-23 17:20] VITALS: BP 192/80
[2020-11-23] MEDS ORDERED: ACETAMINOPHEN 500 MG TAB (TYLENOL) PO PRN (17:45)
[2020-11-23] MEDS ORDERED: CATHETER FLUSH 10 ML SYR IV PRN (17:45)
[2020-11-23 18:30] VITALS: BP 192/80
[2020-11-23] MEDS ORDERED: RT-ALBUTEROL/IPRATROPIUM 3 ML (DUONEB) VIAL INH PRN (18:45)
[2020-11-23] MEDS ORDERED: hydrALAZINE (APESOLINE) 20 MG/ML VIAL IV PRN (19:45)
[2020-11-23 19:57] VITALS: BP 185/82
[2020-11-23] MEDS: CATHETER FLUSH 10 ML SYR IV SCH (20:20)
[2020-11-23] MEDS: inSUlin ASPART (NovoLOG) 1 UNIT/0.01 ML (CHARGE PER UNIT) SC SCH (21:10)
[2020-11-24 00:57] VITALS: BP 120/56
[2020-11-24 04:53] VITALS: BP 146/74
[2020-11-24] MEDS: inSUlin ASPART (NovoLOG) 1 UNIT/0.01 ML (CHARGE PER UNIT) SC SCH ×3 (06:19→16:38)
[2020-11-24] MEDS: CATHETER FLUSH 10 ML SYR IV SCH ×2 (06:20→15:00)
[2020-11-24] MEDS ORDERED: GLIMEPIRIDE 4 MG (AMARYL) TAB PO SCH (06:30)
[2020-11-24] MEDS ORDERED: FUROSEMIDE 40 MG (LASIX) TAB PO SCH (07:00)
[2020-11-24 07:18] VITALS: BP 160/72
[2020-11-24] MEDS ORDERED: ASPIRIN 81 MG CHEW (CHILDREN'S ASA) PO SCH (09:00)
[2020-11-24 11:06] VITALS: BP 147/76
--- NOTE | 2020-11-24 11:26 | History & Physical-Hospitalist ---
History of Present Illness HPI/Chief Complaint Patient is 80-year-old female with a past medical history of insulin- dependent diabetes, hypertension, hyperlipidemia who presented to the emergency department due to weakness. She was here roughly 1 month ago and discharged to the [facility]. She was at the [facility] until November 22. When home health came to check on her yesterday she was too weak to get out of bed. They were also concerned by the level of disarray in her home. They brought her in for evaluation and she was found to have a urinary tract infection. Patient reports feeling better today but is still quite weak. She has no other complaints. Date Seen 11/24/20 Time Seen by a Provider: 11:26 Attending Physician Annmarie Saldana MD PCP Emerson Odom DO Referring Physician Date of Admission Nov 23, 2020 at 16:23 Home Medications & Allergies Home Medications Reviewed patient Home Medication Reconciliation performed by pharmacy medication reconciliations survey field technician and/or nursing. Patients Allergies have been reviewed. Allergies Allergies Coded Allergies No Known Drug Allergies (Unverified10/29/18) Past Jtlbxeg-Slqbvz-Vhzomm Hx Patient Social History Employed/Student: retired Tobacco Use?: No Use of E-Cig and/or Vaping dev: No Substance use?: No Alcohol Use?: No Pt feels they are or have been: No Immunizations Up To Date Date of Influenza Vaccine: Dec 22, 2018 First/Initial COVID19 Vaccinat: vaccinated 2020 Second COVID19 Vaccination Darío: 2020 Tetanus Booster (TDap): Unknown Hepatitis A: Yes Hepatitis B: Yes PED Vaccines UTD: Yes Date of Pneumonia Vaccine: Mar 17, 2014 Seasonal Allergies Seasonal Allergies: Yes (MILD) Current Status Advance Directives: Yes Communicates: Verbally Primary Language: Albanian Preferred Spoken Language: Albanian Past Medical History Surgeries: Abdominal, Tonsillectomy, Tubal Ligation High Cholesterol, Hypertension 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 Sexually Transmitted Disease: No HIV/AIDS: No Bladder Infection Degenerate Disk Disease, Arthritis, Chronic Back Pain Diabetes, Non-Insulin dep Loss of Vision: Denies Hearing Impairment: Denies Breast, Colon Did You Recieve Any Treatments: Yes What Type of Treatment Did You: Surgical Intervention Depression Blood Disorders: No Adverse Reaction/Blood Tranf: No (N/A) Family Medical History Reviewed Nursing Family Hx Alcoholism 19 FATHER Completed stroke 19 MOTHER Dementia 19 MOTHER Diabetes mellitus 19 MOTHER G8 BROTHER FH: breast cancer G8 SISTER FH: uterine cancer 19 MOTHER Hypertension G8 BROTHER Respiratory disorder 19 FATHER Review of Systems Constitutional: No chills, No fever; malaise, weakness EENTM: no symptoms reported Respiratory: no symptoms reported Cardiovascular: no symptoms reported Gastrointestinal: no symptoms reported Genitourinary: No dysuria; incontinence Musculoskeletal: no symptoms reported Skin: no symptoms reported Psychiatric/Neurological: No Symptoms Reported Physical Exam Physical Exam Vital Signs Vital Signs - First Documented 11/23/20 11/23/20 11/23/20 12:40 17:01 18:30 Temp 36.3 Pulse 68 Resp 17 B/P (MAP) 178/70 Pulse Ox 100 O2 Delivery Room Air FiO2 21 Capillary Refill : Less Than 3 Seconds Height, Weight, BMI Height: 5'3.00" Weight: 221lbs. 3.0oz. 100.678634wr; 41.21 BMI Method: General Appearance: No Apparent Distress, Chronically ill, Obese HEENT: PERRL/EOMI, Moist Mucous Membranes; No Scleral Icterus (L), No Scleral Icterus (R) Neck: Normal Inspection, Supple Respiratory: Lungs Clear, No Accessory Muscle Use, No Respiratory Distress Cardiovascular: Regular Rate, Rhythm, No Murmur Gastrointestinal: Normal Bowel Sounds, Non Tender, Soft Extremity: Normal Capillary Refill, No Calf Tenderness, Pedal Edema Neurologic/Psychiatric: Alert, Oriented x3 Skin: Normal Color, Warm/Dry Results Results/Procedures Labs Patient resulted labs reviewed. Assessment/Plan Admission Diagnosis Generalized weakness duet o UTI Admission Status: Observation Assessment and Plan Generalized weakness due to UTI Continue IV abx PT/OT Needs placement, likely fdc Social work met with family today and plan is to return to [place] for continued therapy DC to [place] ANNMARIE SALDANA MD Nov 24, 2020 11:26
--- NOTE | 2020-11-24 14:07 | Physical Therapy Evaluation ---
PT Evaluation-General Medical Diagnosis Admission Date Nov 23, 2020 at 16:23 Medical Diagnosis: Gen Weak, UTI Onset Date: Nov 23, 2020 Therapy Diagnosis Therapy Diagnosis: Gait deficit, strength deficit Height/Weight Height (Feet): 5 Height (Inches): 3.00 Weight (Pounds): 221 Weight (Ounces): 3.0 Precautions Precautions/Isolations: Fall Prevention, Standard Precautions Referral Physician: Dr. Saldana Reason for Referral: Evaluation/Treatment Medical History Pertinent Medical History: CVA, DM, HTN, OA, Renal Insufficiency Social History Home: Multilevel Current Living Status: Alone (5) PT Steps Into Home: 5 PT Steps Inside Home: 15 Prior Prior Level of Function SCALE: Activities may be completed with or without assistive devices. 4-Ceyidyvrbk-wzdvogz completes the activity by him/herself with no assistance from a helper. 5-Set-up or Clean-up Assistance-helper sets up or cleans up; patient completes activity. [place] assists only prior to or following the activity. 4-Supervision or Touching Assistance-helper provides verbal cues and/or touching/steadying and/or contact guard assistance as patient completes activity. Assistance may be provided throughout the activity or intermittently. 3-Partial/Moderate Assistance-helper does LESS THAN HALF the effort. [place] lifts, holds or supports trunk or limbs, but provides less than half the effort. 2-Substantial/Maximal Assistance-helper does MORE THAN HALF the effort. [place] lifts or holds trunk or limbs and provides more than half the effort. 3-Xiobgfcbc-pmmlnr does ALL the effort. Patient does none of the effort to complete the activity. Or, the assistance of 2 or more helpers is required for the patient to complete the activity. If activity was not attempted, code reason: 7-Patient Refused. 9-Not Applicable-not attempted and the patient did not perform the activity before the current illness, exacerbation or injury. 10-Not Attempted due to Environmental Limitations-(lack of equipment, weather restraints, etc.). 88-Not Attempted due to Medical Conditions or Safety Concerns. 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 Reports they called the ambulance and she was transported to the hospital. Objective Patient Orientation: Person, Place, Time, Situation ROM/Strength ROM Lower Extremities PROM WFLs Bilaterally all planes Strength Lower Extremities Grossly 3-/5 bilaterally all planes Transfers Roll Left to Right (QC): 2 Sit to Lying (QC): 2 Lying to Sitting/Side of Bed(Q: 2 Sit to Stand (QC): 2 Chair/Rbw-lu-Lglqt Xfer(QC): 2 Gait Does the Patient Walk?: Yes Mode of Locomotion: Walk Anticipated Mode of Locomotion: Walk Walk 10 feet (QC): 88 Balance Sitting Static: Fair Sitting Dynamic: Fair Standing Static: Poor Standing Dynamic: Poor Assessment/Needs Patient requires max A for all observed bed mobility and transfers. She demonstrates difficulty sitting at edge of bed initially, however after a ssistance to stabilize patient is able to sit edge of bed with SBA. Patient attempts to sit to stand x 2; first attempt reports her left knee feels like its going to give out. Patient was then transferred from bed to chair with max A, with stand pivot transfer. Patient in chair with OT post treatment with all needs met, nursing notified and call light in reach. Rehab Potential: Fair PT Short Term Goals Short Term Goals Time Frame: Dec 08, 2020 Roll Left & Right: 3 Sit to lyin Lying to sitting on side of be: 3 Sit to stand: 3 Chair/xus-ng-rzisj transfer: 3 Toilet transfer: 3 Walk 10 feet: 3 PT Special Effects Person Goals Custodial Goals PT Custodial Goals Time Frame: Dec 29, 2020 Roll Left & Right (QC): 5 Sit to Lying (QC): 5 Lying-Sitting on Side/Bed(QC): 5 Sit to Stand (QC): 5 Chair/Wjw-fz-Pdxla Xfer(QC): 5 Toilet Transfer (QC): 5 Does the Patient Walk: Yes Walk 10 feet (QC): 4 Walk 50ft with 2 Turns (QC): 4 1 Step (curb) (QC): 4 4 Steps (QC): 4 12 Steps (QC): 4 PT Plan Problem List Problem List: Activity Tolerance, Functional Strength, Safety, Balance, Gait, Transfer, Bed Mobility, ROM Treatment/Plan Treatment Plan: Continue Plan of Care Treatment Plan: Bed Mobility, Education, Functional Activity Odalys, Functional Strength, Group Therapy, Gait, Safety, Therapeutic Exercise, Transfers Treatment Duration: Feb 08, 2021 Frequency: 6 times per week Estimated Hrs Per Day: .25 hour per day Safety Risks/Education Patient Education: Gait Training, Transfer Techniques Teaching Recipient: Patient Teaching Methods: Demonstration, Discussion Response to Teaching: Verbalize Understanding, Reinforcement Needed Time/GCodes Time In: 1355 Time Out: 1415 Total Billed Treatment Time: 20 Total Billed Treatment FA. ELADIO Merrill JOHN A PT Nov 24, 2020 14:07
[2020-11-24] MEDS ORDERED: cefTRIAXone 1,000 MG/SWFI 10 ML IV PUSH IV SCH ×2 (15:00)
--- NOTE | 2020-11-24 15:26 | Occupational Therapy Eval ---
OT Evaluation-General/PLF Medical Diagnosis Admission Date Nov 23, 2020 at 16:23 Medical Diagnosis: Gen Weak, UTI Onset Date: Nov 23, 2020 Therapy Diagnosis Therapy Diagnosis: weakness, decreased ADL Status Height/Weight Height (Feet): 5 Height (Inches): 3.00 Weight (Pounds): 221 Weight (Ounces): 3.0 Precautions Precautions/Isolations: Fall Prevention, Standard Precautions Referral Physician: Dr. Saldana Referral Reason: Evaluation/Treatment Medical History Pertinent Medical History: CVA, DM, HTN, OA, Renal Insufficiency Additional Medical History HTN, CVA, DDD, Arthritis, chronic back pain, DM, breast and colon cancer, depression Current History EMS from home c/o incontinence, b/l knee pain. Discharged from [facility] 11/22/20, family reports she had been on the couch since she returned home Social History Home: Multilevel Current Living Status: Alone Steps Into Home: 5 Steps Inside Home: 15 ADL-Prior Level of Function SCALE: Activities may be completed with or without assistive devices. 9-Vspqtkuxcy-rkiuxjl completes the activity by him/herself with no assistance from a helper. 5-Set-up or Clean-up Assistance-helper sets up or cleans up; patient completes activity. [place] assists only prior to or following the activity. 4-Supervision or Touching Assistance-helper provides verbal cues and/or touching/steadying and/or contact guard assistance as patient completes activity. Assistance may be provided throughout the activity or intermittently. 3-Partial/Moderate Assistance-helper does LESS THAN HALF the effort. [place] lifts, holds or supports trunk or limbs, but provides less than half the effort. 2-Substantial/Maximal Assistance-helper does MORE THAN HALF the effort. [place] lifts or holds trunk or limbs and provides more than half the effort. 9-Sofwoukxy-mfqnty does ALL the effort. Patient does none of the effort to complete the activity. Or, the assistance of 2 or more helpers is required for the patient to complete the activity. If activity was not attempted, code reason: 7-Patient Refused. 9-Not Applicable-not attempted and the patient did not perform the activity before the current illness, exacerbation or injury. 10-Not Attempted due to Environmental Limitations-(lack of equipment, weather restraints, etc.). 88-Not Attempted due to Medical Conditions or Safety Concerns. ADL PLOF Comments Pt reports IND at PLOF, when she left [facility], she was able to complete ADLs independently and perform functional mobility with walker. Self Care: Independent Functional Cognition: Independent OT Current Status Subjective Pt transferring from bed to chair with PT upon OT arrival, agreeable to OT eval/tx. Mental Status/Objective Patient Orientation: Person, Place, Situation Attachments: Castellanos Catheter Current Hand Dominance: Right Upper Extremity ROM WFL PROM Upper Extremity Strength grossly 3+/5 ADL-Treatment Eating (QC): 6 (per pt report) On/Off Footwear (QC): 3 (Pt able to doff gripper socks, assist to don) Toileting Hygiene (QC): 1 (catheter) Other Treatments Pt transferring from EOB to recliner with PT, per PT report max A with transfer. Pt doffed gripper socks with increased time, attempted to don but required assistance. OT combed pt's hair, max A overall due to tangles. Pt asks this OT to assist her, as she would like to attempt to stand again. Pt performed sit to stand transfer, raising buttocks from chair but did not attain a full stand, keeping her hands on the armrests. Pt required CGA with pushing up from recliner. Post tx, pt seated in recliner, call light in reach and all needs met. Education OT Patient Education: Correct positioning, Modified ADL techniques, Progress toward Goal/Update tx plan, Purpose of tx/functional activities Teaching Recipient: Patient Teaching Methods: Discussion Response to Teaching: Verbalize Understanding OT Postdoctoral Scientist Goals Postdoctoral Scientist Goals Time Frame: Dec 01, 2020 Eating (QC): 6 Oral Hygiene (QC): 6 Toileting Hygiene (QC): 6 Shower/Bathe Self (QC): 6 Upper Body Dressing (QC): 6 Lower Body Dressing (QC): 6 On/Off Footwear (QC): 6 Additional Goals: 1-Demonstrate ADL Tasks, 2-Verbalize Understanding, 3- ImproveStrength/Odalys 1=Demonstrate adherence to instructed precautions during ADL tasks. 2=Patient will verbalize/demonstrate understanding of assistive devices/modifications for ADL. 3=Patient will improve strength/tolerance for activity to enable patient to perform ADL's. OT Education/Plan Problem List/Assessment Assessment: Decreased Activ Tolerance, Decreased UE Strength, Impaired Funct Balance, Impaired I ADL's, Impaired Self-Care Skills, Restricted Funct UE ROM Discharge Recommendations Plan/Recommendations: Continue POC Treatment Plan/Plan of Care Patient would benefit from OT for education, treatment and training to promote independence in ADL's, mobility, safety and/or upper extremity function for ADL's. Plan of Care: ADL Retraining, Functional Mobility, UE Funct Exercise/Act Treatment Duration: Dec 01, 2020 Frequency: 5 times per week Estimated Hrs Per Day: .25 hour per day Rehab Potential: Fair Time/GCodes Start Time: 14:14 Stop Time: 14:40 Total Time Billed (hr/min): 26 Billed Treatment Time 1, EVM (10'), ADL (16') MIC ACUÑA OT Nov 24, 2020 15:26
[2020-11-24] MEDS ORDERED: CEFD300C3 PO (15:55)
--- NOTE | 2020-11-24 15:56 | Discharge Inst-Simple/Standard ---
Discharge Inst-Standard Discharge Medications New, Converted or Re-Newed RX: Transmitted to Pharmacy Patient Instructions/Follow Up Plan of Care/Instructions/FU: Please continue to take your medications as written. Please follow up with your primary care doctor to follow up this hospital stay. Activity as Tolerated: Yes Discharge Diet: No Restrictions Return to The Hospital For: Chest pain, shortness of breath, fever, confusion, weakness, if you feel you are getting worse. BESSY PEREA MD Nov 24, 2020 15:56
[2020-11-24 15:59] VITALS: BP 132/70
[2020-11-24 17:25] VITALS: BP 132/70
[2020-11-24] MEDS ORDERED: OMEGA 3 (FISH OIL) 1000 MG CAP PO SCH (18:00)
[2020-11-24] MEDS ORDERED: ACETAMINOPHEN 500 MG TAB (TYLENOL) PO SCH (21:00)
[2020-11-24] MEDS ORDERED: NON-FORMULARY MEDICATION 1 EA EA (Acetaminophen (Tylenol Arthritis) 650 MG) PO SCH (21:00)
[2020-11-25] MEDS ORDERED: FERROUS SULF 325 MG (IRON) TAB PO SCH (07:00)
[2020-11-25] MEDS ORDERED: ZINC SULFATE 220 MG CAPSULE PO SCH (08:00)
[2020-11-25] MEDS ORDERED: SERTRALINE 50 MG (ZOLOFT) TABLET PO SCH (09:00)
[2020-11-25] MEDS ORDERED: LETROZOLE 2.5 MG (FEMARA) TAB PO SCH (09:00)
[2020-11-25] MEDS ORDERED: LOSARTAN 100 MG (COZAAR) TABLET PO SCH (09:00)
[2020-11-25] MEDS ORDERED: NON-FORMULARY MEDICATION 1 EA EA (Insulin Glargine,Hum.rec.anlog (Lantus Solostar) 20 UNIT SC SCH (09:00)
[2020-11-25] MEDS ORDERED: PANTOPRAZOLE 40 MG (PROTONIX) TAB PO SCH (09:00)
== END 2020-11-24 17:25 ==
LOC: ER 12:41 → 4TH 16:23 → UNDOADMOB 16:23 → 4TH 17:20 → UNDODISOB 11-24 17:25
PROVIDERS: ADMIT Family Medicine; ATTEND Family Medicine
DX: N30.00 Acute cystitis without hematuria (principal); I10 Essential (primary) hypertension; E78.00 Pure hypercholesterolemia, unspecified; M19.90 Unspecified osteoarthritis, unspecified site; M54.9 Dorsalgia, unspecified; G89.29 Other chronic pain; M25.561 Pain in right knee; M25.562 Pain in left knee; E11.9 Type 2 diabetes mellitus without complications; F32.9 Major depressive disorder, single episode, unspecified; Z79.82 Long term (current) use of aspirin; Z79.899 Other long term (current) drug therapy; Z79.4 Long term (current) use of insulin; Z90.89 Acquired absence of other organs; Z98.51 Tubal ligation status; Z86.73 Personal history of transient ischemic attack (TIA), and cerebral infarction without residual deficits; Z85.3 Personal history of malignant neoplasm of breast; Z85.038 Personal history of other malignant neoplasm of large intestine; Z83.3 Family history of diabetes mellitus; Z80.49 Family history of malignant neoplasm of other genital organs; Z82.3 Family history of stroke
CPT/HCPCS: 36415; 51702; 80048; 81000; 82947; 85025; 87077; 87088; 87186; 96374; G0378

== ENCOUNTER 2021-01-01 09:17 | Outpatient (RCR) | payer MEDICARE, BC ==
[~2021-01-01 09:17] MED LIST changes: +BENA-3 PO; -BENA20TA7 PO; +CEFD300C3 PO
[2021-01-01 09:34] LABS: BASOPHILS % (AUTO) 0 % (0-10); EOSINOPHILS # (AUTO) 0.1 10^3/uL (0.0-0.3); EOSINOPHILS % (AUTO) 3 % (0-10); HEMATOCRIT 34 % (35-52); HEMOGLOBIN 10.9 g/dL (11.5-16.0); LYMPHOCYTES # (AUTO) 1.1 10^3/uL (1.0-4.0); LYMPHOCYTES % (AUTO) 19 % (12-44); MEAN CORPUSCULAR HEMOGLOBIN 31 pg (25-34); MEAN CORPUSCULAR HGB CONC 32 g/dL (32-36); MEAN CORPUSCULAR VOLUME 97 fL (80-99); MEAN PLATELET VOLUME 9.5 fL (9.0-12.2); MONOCYTES # (AUTO) 0.5 10^3/uL (0.0-1.0); MONOCYTES % (AUTO) 9 % (0-12); NEUTROPHILS # (AUTO) 3.9 10^3/uL (1.8-7.8); NEUTROPHILS % (AUTO) 69 % (42-75); PLATELET COUNT 268 10^3/uL (130-400); WHITE BLOOD COUNT 5.6 10^3/uL (4.3-11.0)
[2021-01-01 09:56] LABS: ALBUMIN 3.8 GM/DL (3.2-4.5); BILIRUBIN,TOTAL 0.3 MG/DL (0.1-1.0); CALCIUM 10.6 MG/DL (8.5-10.1); CREATININE SERUM 0.91 MG/DL (0.60-1.30); POTASSIUM 4.3 MMOL/L (3.6-5.0)
[2021-01-30] MEDS ORDERED: AMOX1TAB12 PO (17:56)
[2021-01-30] MEDS ORDERED: CLOT15CR6 TP (17:56)
[2021-01-31] MEDS ORDERED: VIT1TABL26 PO (08:35)
[2021-01-31] MEDS ORDERED: THERAWORKS TOP (08:35)
[2021-02-05] MEDS ORDERED: CARV12.53 PO (10:20)
[2021-02-05] MEDS ORDERED: DOXA1TAB2 PO (10:20)
[2021-02-05] MEDS ORDERED: HYDR-3923 PO (10:20)
[2021-02-05] MEDS ORDERED: AMLO-251 PO (10:20)
== END 2021-03-16 | disposition home or self-care (01) ==
LOC: ONC 09:17
PROVIDERS: ATTEND Internal Medicine Hematology & Oncology
DX: C50.412 Malignant neoplasm of upper-outer quadrant of left female breast (principal); C18.2 Malignant neoplasm of ascending colon; I63.9 Cerebral infarction, unspecified; I12.9 Hypertensive chronic kidney disease with stage 1 through stage 4 chronic kidney disease, or unspecified chronic kidney disease; E11.22 Type 2 diabetes mellitus with diabetic chronic kidney disease; N18.4 Chronic kidney disease, stage 4 (severe); E78.00 Pure hypercholesterolemia, unspecified; Z98.890 Other specified postprocedural states; Z90.12 Acquired absence of left breast and nipple; Z92.3 Personal history of irradiation; Z90.49 Acquired absence of other specified parts of digestive tract; Z79.811 Long term (current) use of aromatase inhibitors; Z80.3 Family history of malignant neoplasm of breast
CPT/HCPCS: 80053; 82378; 85025; G0463; 99213

== ENCOUNTER → 2021-01-23 | Outpatient (CLI) | payer MEDICARE, BC ==
[~2021-01-23] MED LIST changes: -BENA-3 PO; +BENA20TA7 PO
[2021-01-23 14:12] LABS: CALCIUM 10.9 MG/DL (8.5-10.1); CREATININE SERUM 1.09 MG/DL (0.60-1.30); POTASSIUM 4.3 MMOL/L (3.6-5.0)
--- NOTE | 2021-01-23 14:47 | Diagnostic Imaging Report ---
EXAMINATION: Lumbar spine at 2:13 p.m. INDICATION: Fell, back pain. Three views were obtained. FINDINGS: The lateral view reveals that the degenerative disc and bony disease involving the lumbar spine seen on the prior study of 10/09/2015 has progressed. Specifically, there is now greater narrowing of the disc spaces at L1-L2 and L2-L3, and there is now vacuum disc formation at both of these levels. The L3-L4 and L4-L5 disc spaces are also somewhat more narrowed than on the prior exam. The L5-S1 disc space is now nearly completely obliterated. There is no fracture or acute bony abnormality appreciated. There is no sign of a paraspinal mass. IMPRESSION: 1. There is no evidence for an acute bony abnormality. 2. The degenerative disc and bony disease involving the lumbar spine has progressed since the prior study. 3. If there is clinical concern regarding spinal stenosis or nerve root encroachment, then MRI would be recommended for further evaluation. Dictated by: Dictated on workstation # [id number]
--- NOTE | 2021-01-23 14:53 | Diagnostic Imaging Report ---
EXAMINATION: Left knee at 2:09 PM. INDICATION: Injury, knee pain. TECHNIQUE/COMPARISON: Three views were obtained. There are no prior studies available for comparison. FINDINGS: There is no fracture, dislocation, or acute bony abnormality evident; however, there is moderately severe narrowing of the medial compartment and the patellofemoral space. There is only mild narrowing of the lateral compartment of the knee joint. The soft tissues are unremarkable. IMPRESSION: 1. There is no evidence for an acute bony abnormality. 2. There is moderately severe degenerative disease of the medial compartment and the patellofemoral space. Dictated by: Dictated on workstation # [id number]
== END ==
LOC: RAD 13:23
PROVIDERS: ATTEND Family Medicine
DX: M17.12 Unilateral primary osteoarthritis, left knee (principal); S89.92XA Unspecified injury of left lower leg, initial encounter; M51.36 Other intervertebral disc degeneration, lumbar region; W19.XXXA Unspecified fall, initial encounter
CPT/HCPCS: 36415; 72100; 73562; 80048

== ENCOUNTER 2021-01-30 10:26 | Inpatient (IN) | payer MEDICARE, BC ==
[~2021-01-30] VITALS: Ht 160 cm; Wt 105.0 kg
[~2021-01-30 10:26] MED LIST changes: +BENA-3 PO; -BENA20TA7 PO
[2021-01-30 10:47] LABS: BILIRUBIN,URINE NEGATIVE (NEGATIVE); CLARITY,URINE CLEAR; COLOR,URINE YELLOW; GLUCOSE, URINE (UA) 3+ (NEGATIVE); KETONES,URINE NEGATIVE (NEGATIVE); LEUKOCYTE ESTERASE ,URINE NEGATIVE (NEGATIVE); NITRITE,URINE NEGATIVE (NEGATIVE); PROTEIN,URINE 2+ (NEGATIVE)
[2021-01-30 10:55] LABS: BACTERIA,URINE NEGATIVE /HPF; RBC,URINE RARE /HPF; WBC,URINE RARE /HPF
[2021-01-30 11:19] LABS: BASOPHILS % (AUTO) 0 % (0-10); EOSINOPHILS # (AUTO) 0.2 10^3/uL (0.0-0.3); EOSINOPHILS % (AUTO) 3 % (0-10); HEMATOCRIT 34 % (35-52); HEMOGLOBIN 10.9 g/dL (11.5-16.0); LYMPHOCYTES # (AUTO) 0.9 10^3/uL (1.0-4.0); LYMPHOCYTES % (AUTO) 14 % (12-44); MEAN CORPUSCULAR HEMOGLOBIN 31 pg (25-34); MEAN CORPUSCULAR HGB CONC 33 g/dL (32-36); MEAN CORPUSCULAR VOLUME 95 fL (80-99); MEAN PLATELET VOLUME 10.1 fL (9.0-12.2); MONOCYTES # (AUTO) 0.5 10^3/uL (0.0-1.0); MONOCYTES % (AUTO) 8 % (0-12); NEUTROPHILS # (AUTO) 5.1 10^3/uL (1.8-7.8); NEUTROPHILS % (AUTO) 76 % (42-75); PLATELET COUNT 253 10^3/uL (130-400); WHITE BLOOD COUNT 6.8 10^3/uL (4.3-11.0)
[2021-01-30 11:27] LABS: ALBUMIN 3.8 GM/DL (3.2-4.5); POTASSIUM 4.2 MMOL/L (3.6-5.0)
[2021-01-30 11:28] LABS: CALCIUM 10.9 MG/DL (8.5-10.1)
[2021-01-30 11:31] LABS: BILIRUBIN,TOTAL 0.4 MG/DL (0.1-1.0)
[2021-01-30 11:33] LABS: CREATININE SERUM 1.04 MG/DL (0.60-1.30)
[2021-01-30 11:36] LABS: MAGNESIUM 1.5 MG/DL (1.6-2.4)
[2021-01-30] MEDS ORDERED: MAGNESIUM 1 GM/100 ML IVPB 100 ML IV ONE (11:45)
[2021-01-30] MEDS ORDERED: NS IV 1000 ML 1,000 ML IV SCH (11:45)
[2021-01-30 12:07] LABS: ABG BASE EXCESS 1.9 MMOL/L (-2.5-2.5); ABG OXYGEN SATURATION 98 % (94-100); ABG PCO2 39 MMHG (35-45); ABG PH 7.43 (7.37-7.43); ABG PO2 95 MMHG (79-93); ABG TCO2 27.1 MMOL/L (21.0-31.0)
[2021-01-30 12:11] LABS: ALLENS TEST YES-POS; INSPIRED O2 ROOM AIR; VENTILATOR NO
[2021-01-30 12:12] LABS: PATIENT TEMP 36.3
--- NOTE | 2021-01-30 12:17 | Diagnostic Imaging Report ---
PROCEDURE: CT head without contrast. TECHNIQUE: Multiple contiguous axial images were obtained through the brain without the use of intravenous contrast. Auto Exposure Controls were utilized during the CT exam to meet ALARA standards for radiation dose reduction. INDICATION: Altered mental status. COMPARISON: 05/11/2019. FINDINGS: There has been development of encephalomalacia in the area of left frontal infarct. Peripheral calcification is noted. This could be related to previous embolism. Otherwise, there is mild low density in the deep white matter of both hemispheres, most pronounced in the left frontal region. No hemorrhage is identified. There is no abnormal mass effect or shift of midline structures. Calvarium is intact and the visualized paranasal sinuses are clear. IMPRESSION: Encephalomalacia has developed in left frontal lobe at site of previously identified ischemia. Otherwise, no acute abnormality or new intracranial lesion is identified. Dictated by: Dictated on workstation # [id number]
--- NOTE | 2021-01-30 13:28 | Diagnostic Imaging Report ---
PROCEDURE: CT pelvis without contrast. TECHNIQUE: Multiple contiguous axial images were obtained through the pelvis without the use of intravenous contrast. Sagittal and coronal reformations were performed. Auto Exposure Controls were utilized during the CT exam to meet ALARA standards for radiation dose reduction. INDICATION: Fall. Bilateral sacral ala appear to be intact. There is normal femoral acetabular alignment. Both femoral heads and necks appear to be intact. The superior and inferior pubic rami are intact. SI joints are non-widened. No free fluid in the pelvis is identified. IMPRESSION: No pelvic fracture is identified. Dictated by: Dictated on workstation # [id number]
--- NOTE | 2021-01-30 13:31 | Diagnostic Imaging Report ---
PROCEDURE: CT lumbar spine without contrast. TECHNIQUE: Multiple contiguous axial images were obtained through the lumbar spine without the use of intravenous contrast. Sagittal and coronal reformations were then performed. Auto Exposure Controls were utilized during the CT exam to meet ALARA standards for radiation dose reduction. INDICATION: Fall. Urinary tract infection. Back pain. COMPARISON: 01/23/2021. FINDINGS: There is grade 1 anterolisthesis of L4 on L5. No acute fracture or dislocation is seen in the lumbar spine. Right convexity curvature of the lumbar spine is noted. No suspicious focal osseous lesions are seen. Endplate sclerotic changes are present at the L2-L3 level with subcortical cyst formation. Multilevel degenerative changes are present in the lumbar spine with disc bulges, marginal osteophytes, and facet hypertrophy. These are greatest at the L4-L5 level with severe spinal canal stenosis and kevtzgcx-ss-rvytbe right and moderate left foraminal stenosis. No high-density material is seen within the spinal canal. The paraspinal soft tissues are unremarkable. A fat-containing lesion is seen in the superior pole of the left kidney measuring 1.5 cm. Proteinaceous or hemorrhagic cyst is seen in the inferior pole of the right kidney measuring 1.1 cm. No hydronephrosis. IMPRESSION: 1. No acute fracture or dislocation in the lumbar spine. 2. Grade 1 anterolisthesis of L4 on L5. 3. Multilevel degenerative changes in the lumbar spine, greatest at L4-L5. 4. Endplate sclerotic changes at L2-L3. 5. Fat-containing cyst in the superior pole of the left kidney measuring 1.5 cm, suggestive of angiomyolipoma. A proteinaceous or hemorrhagic cyst is seen in the inferior pole of the right kidney. Dictated by: Dictated on workstation # [id number]
--- NOTE | 2021-01-30 14:58 | ED General ---
General Chief Complaint: Altered Mental Status Stated Complaint: INCREASED WEAKNESS,UTI Nursing Triage Note: ARRIVED VIA EMS FROM [facility]. INCREASED CONFUSION AND WEAKNESS OVER THE LAST WEEK. PT IS BEING TREATED FOR A UTI. Source of Information: Patient, EMS, Family, [facility] Records, Old Records Exam Limitations: No Limitations History of Present Illness Date Seen by Provider: Jan 30, 2021 Time Seen by Provider: 10:41 Initial Comments This 81-year-old woman presents to the emergency room from [facility] where she has been noted to have a decline in her functional status over the past few weeks. Her daughter provides some of the history and states she has not observed her mother walk in about the past 2 to 3 days. Patient describes progressive weakness also. Cognition also seems to be dulled and she is somewhat disoriented which is not typical according to staff and the patient's daughter. Dr. Sandhu also provided some of the history and commented that she normally is able to ambulate into his clinic with a walker. Last week she could not get out of the vehicle and he performed his visit in the backseat of her car. She is presently being treated for urinary tract infection with Augmentin. Daughter also later recalls that patient had a fall a few days ago. Dr. Sandhu had obtained outpatient x-rays which were reviewed and showed no acute fractures or dislocations. Mariaa complains of some lower back pain and pain in the "tailbone" area. Blood sugars have been elevated recently. Allergies and Home Medications Allergies Coded Allergies: No Known Drug Allergies (Unverified , 10/29/18) Patient Home Medication List Home Medication List Reviewed: Yes Acetaminophen (Tylenol Arthritis) 650 Mg Tablet.er, 650 MG PO BID, (Reported) Entered as Reported by: SIA GARCIA on 10/26/19 1547 Last Action: Reviewed Acetaminophen (Tylenol Extra Strength) 500 Mg Tablet, 500 MG PO BID, (Reported) Entered as Reported by: SIA GARCIA on 10/23/20 1120 Last Action: Reviewed Amoxicillin/Potassium Clav (Amox Tr-K Clv 875-125 mg Tab) 1 Each Tablet, 875 MG PO BID, (Reported) Entered as Reported by: CALDERON VELAZCO on 01/30/21 1756 Last Action: New Order Antiox#10/Om3/Dha/Epa/Lut/Zeax (I-Caps with Lutein-Weston 3 Sfg) 1 Each Capsule, 1 EACH PO BID, (Reported) Entered as Reported by: SIA GARCIA on 10/26/191545 Last Action: Reviewed Aspirin (Aspirin EC) 81 Mg Tablet.dr, 81 MG PO DAILY, (Reported) Entered as Reported by: SIA GARCIA on 10/26/191545 Last Action: Reviewed Atorvastatin Calcium (Atorvastatin Calcium) 40 Mg Tablet, 40 MG PO DAILY, (Reported) Entered as Reported by: SIA GARCIA on 10/26/191545 Last Action: Reviewed Carvedilol (Carvedilol) 12.5 Mg Tablet, 12.5 MG PO BID, (Reported) Entered as Reported by: SIA GARCIA on 10/26/191545 Last Action: Reviewed Clotrimazole/Betamethasone Dip (Clotrimazole-Betamethasone Crm) 15 Gm Cream..g., 1 APPLIC TP TID, (Reported) Entered as Reported by: CALDERON VELAZCO on 01/30/21 2986 Last Action: New Order Ferrous Sulfate (Iron) 325 Mg Tablet, 325 MG PO DAILY, (Reported) Entered as Reported by: JUD DUMONT on 10/29/18 0859 Last Action: Reviewed Glimepiride (Glimepiride) 4 Mg Tablet, 4 MG PO DAILY, (Reported) Entered as Reported by: SIA GARCIA on 10/23/20 112 Last Action: Reviewed Insulin Glargine,Hum.rec.anlog (Lantus Solostar) 100 Unit/1 Ml Insuln.pen, 20 UNITS SC DAILY, (Reported) Entered as Reported by: SIA GARCIA on 10/23/201119 Last Action: Reviewed Letrozole (Letrozole) 2.5 Mg Tablet, 2.5 MG PO DAILY, (Reported) Entered as Reported by: BENNIE ELLIOTT on 05/04/19 154 Last Action: Reviewed Levetiracetam (Levetiracetam) 750 Mg Tablet, 750 MG PO BID, (Reported) Entered as Reported by: SIA GARCIA on 10/26/191545 Last Action: Reviewed Olmesartan Medoxomil (Olmesartan Medoxomil) 20 Mg Tablet, 20 MG PO DAILY, (Reported) Entered as Reported by: SIA GARCIA on 10/23/20 1120 Last Action: Reviewed Weston 3 Polyunsat Fatty Acids (Fish Oil 1,000 mg Capsule) 1,000 Mg Cap, 1,000 MG PO BID, (Reported) Entered as Reported by: JUD DUMONT on 10/29/18 0859 Last Action: Reviewed Pantoprazole Sodium (Pantoprazole Sodium) 40 Mg Tablet.dr, 40 MG PO DAILY, (Reported) Entered as Reported by: SIA GARCIA on 10/26/19 1546 Last Action: Reviewed Sertraline HCl (Sertraline HCl) 25 Mg Tablet, 25 MG PO DAILY, (Reported) Entered as Reported by: SIA GARCIA on 10/26/19 1546 Last Action: Reviewed Sitagliptin Phosphate (Januvia) 100 Mg Tablet, 100 MG PO DAILY, (Reported) Entered as Reported by: JUD DUMONT on 01/05/16 1338 Last Action: Reviewed Zinc (Zinc) 50 Mg Tablet, 50 MG PO DAILY, (Reported) Entered as Reported by: SIA GARCIA on 10/23/20 1120 Last Action: Reviewed Discontinued Medications Cefdinir (Cefdinir) 300 Mg Capsule, 300 MG PO BID Discontinued Reason: No Longer Taking Prescribed by: BESSY PEREA on 11/24/20 1555 Last Action: Discontinued Review of Systems Review of Systems Constitutional: see HPI; No fever; weakness EENTM: no symptoms reported Respiratory: no symptoms reported Cardiovascular: no symptoms reported Gastrointestinal: no symptoms reported Genitourinary: no symptoms reported : No Musculoskeletal: see HPI Skin: no symptoms reported Psychiatric/Neurological: See HPI Hematologic/Lymphatic: No Symptoms Reported Immunological/Allergic: no symptoms reported Past Hywseul-Tmtjhl-Tzpshl Hx Patient Social History Tobacco Use?: No Substance use?: No Alcohol Use?: No Immunizations Up To Date Tetanus Booster (TDap): Unknown PED Vaccines UTD: Yes First/Initial COVID19 Vaccinat: vaccinated 2020 Second COVID19 Vaccination Darío: UNKNOWN Third COVID19 Vaccination Date: vaccinated 2020 COVID19 Vaccine Chief [employer]: UNKNOWN Seasonal Allergies Seasonal Allergies: Yes (MILD) Past Medical History Surgeries: Yes (CATARACTS, GRAVEL REMOVED FROM KNEE, D&C, LIPOMA , R BREAST LUMP, COLECTOMY) Abdominal, Tonsillectomy, Tubal Ligation Respiratory: No Cardiac: Yes High Cholesterol, Hypertension Neurological: Yes (CVA- APRIL 2019) Stroke Reproductive Disorders: No 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 Sexually Transmitted Disease: No HIV/AIDS: No Genitourinary: Yes Bladder Infection Gastrointestinal: Yes (COLON CANCER) Musculoskeletal: Yes Degenerate Disk Disease, Arthritis, Chronic Back Pain Endocrine: Yes Diabetes, Non-Insulin dep HEENT: Yes (GLASSES, DENTURES) Loss of Vision: Denies Hearing Impairment: Denies Cancer: Yes Breast, Colon Did You Recieve Any Treatments: Yes What Type of Treatment Did You: Surgical Intervention Psychosocial: Yes (SITUATIONAL ) Depression Integumentary: No Blood Disorders: No Adverse Reaction/Blood Tranf: No (N/A) Family Medical History Alcoholism 19 FATHER Completed stroke 19 MOTHER Dementia 19 MOTHER Diabetes mellitus 19 MOTHER G8 BROTHER FH: breast cancer G8 SISTER FH: uterine cancer 19 MOTHER Hypertension G8 BROTHER Respiratory disorder 19 FATHER Physical Exam Vital Signs Vital Signs - First Documented 01/30/21 10:26 Temp 36.3 Pulse 55 Resp 16 B/P (MAP) 203/79 (120) Pulse Ox 98 O2 Delivery Room Air Capillary Refill : Less Than 3 Seconds Height, Weight, BMI Height: 5'3.00" Weight: 221lbs. 3.0oz. 100.748244in; 40.00 BMI Method: General Appearance: No Apparent Distress, WD/WN HEENT: PERRL/EOMI, Normal ENT Inspection, Other (Oropharynx somewhat dry) Neck: Normal Inspection Respiratory: Lungs Clear, Normal Breath Sounds, No Accessory Muscle Use, No Respiratory Distress Cardiovascular: Regular Rate, Rhythm, No Murmur, Other (Mild lower extremity pitting edema) Gastrointestinal: Normal Bowel Sounds, Non Tender, Soft Back: Vertebral Tenderness (Over the lumbar spine) Extremity: Non Tender, Swelling (Mild lower extremity pitting edema) Neurologic/Psychiatric: Alert (At times alert, at other times somnolent), No Motor/Sensory Deficits, Normal 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, 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 Norm as Tested, Other (Disoriented) Skin: Normal Color, Warm/Dry Progress/Results/Core Measures Suspected Sepsis SIRS Temperature: Pulse: 55 Respiratory Rate: 16 Laboratory Tests 01/30/21 11:05: White Blood Count 6.8 Blood Pressure 203 /79 Mean: 120 Laboratory Tests 01/30/21 11:05: Creatinine 1.04, Platelet Count 253, Total Bilirubin 0.4 Results/Orders Lab Results Laboratory Tests Test 01/30/21 10:38 01/30/21 11:05 01/30/21 11:54 Range/Units Urine Color YELLOW Urine Clarity CLEAR Urine pH 6.0 5-9 Urine Specific [place] 1.020 1.016-1.022 Urine Protein 2+ H NEGATIVE Urine Glucose (UA) 3+ H NEGATIVE Urine Ketones NEGATIVE NEGATIVE Urine Nitrite NEGATIVE NEGATIVE Urine Bilirubin NEGATIVE NEGATIVE Urine Urobilinogen 0.2 < = 1.0 MG/DL Urine Leukocyte Esterase NEGATIVE NEGATIVE Urine RBC (Auto) NEGATIVE NEGATIVE Urine RBC RARE /HPF Urine WBC RARE /HPF Urine Crystals NONE /LPF Urine Bacteria NEGATIVE /HPF Urine Casts NONE /LPF Urine Mucus NEGATIVE /LPF Urine Culture Indicated NO White Blood Count 6.8 4.3-11.0 10^3/uL Red Blood Count 3.54 L 3.80-5.11 10^6/uL Hemoglobin 10.9 L 11.5-16.0 g/dL Hematocrit 34 L 35-52 % Mean Corpuscular Volume 95 80-99 fL Mean Corpuscular Hemoglobin 31 25-34 pg Mean Corpuscular Hemoglobin Concent 33 32-36 g/dL Red Cell Distribution Width 12.8 10.0-14.5 % Platelet Count 253 130-400 10^3/uL Mean Platelet Volume 10.1 9.0-12.2 fL Immature Granulocyte % (Auto) 0 % Neutrophils (%) (Auto) 76 H 42-75 % Lymphocytes (%) (Auto) 14 12-44 % Monocytes (%) (Auto) 8 0-12 % Eosinophils (%) (Auto) 3 0-10 % Basophils (%) (Auto) 0 0-10 % Neutrophils # (Auto) 5.1 1.8-7.8 10^3/uL Lymphocytes # (Auto) 0.9 L 1.0-4.0 10^3/uL Monocytes # (Auto) 0.5 0.0-1.0 10^3/uL Eosinophils # (Auto) 0.2 0.0-0.3 10^3/uL Basophils # (Auto) 0.0 0.0-0.1 10^3/uL Immature Granulocyte # (Auto) 0.0 0.0-0.1 10^3/uL Sodium Level 139 135-145 MMOL/L Potassium Level 4.2 3.6-5.0 MMOL/L Chloride Level 104 98-107 MMOL/L Carbon Dioxide Level 23 21-32 MMOL/L Anion Gap 12 5-14 MMOL/L Blood Urea Nitrogen 21 H 7-18 MG/DL Creatinine 1.04 0.60-1.30 MG/DL Estimat Glomerular Filtration Rate 51 BUN/Creatinine Ratio 20 Glucose Level 308 H 70-105 MG/DL Calcium Level 10.9 H 8.5-10.1 MG/DL Corrected Calcium 11.1 H 8.5-10.1 MG/DL Magnesium Level 1.5 L 1.6-2.4 MG/DL Total Bilirubin 0.4 0.1-1.0 MG/DL Aspartate Amino Transf (AST/SGOT) 15 5-34 U/L Alanine Aminotransferase (ALT/SGPT) 16 0-55 U/L Alkaline Phosphatase 79 40-136 U/L C-Reactive Protein High Sensitivity 1.31 H 0.00-0.50 MG/DL Total Protein 7.0 6.4-8.2 GM/DL Albumin 3.8 3.2-4.5 GM/DL TSH Forrest Testing 2.05 0.35-4.94 UIU/ML Blood Gas Puncture Site R RAD Blood Gas Patient Temperature 36.3 Arterial Blood pH 7.43 7.37-7.43 Arterial Blood Partial Pressure CO2 39 35-45 MMHG Arterial Blood Partial Pressure O2 95 H 79-93 MMHG Arterial Blood HCO3 26 23-27 MMOL/L Arterial Blood Total CO2 27.1 21.0-31.0 MMOL/L Arterial Blood Oxygen Saturation 98 94-100 % Arterial Blood Base Excess 1.9 -2.5-2.5 MMOL/L Alex Test YES-POS Blood Gas Ventilator Setting NO Blood Gas Inspired Oxygen ROOM AIR My Orders Orders - NADIR LIM MD Ed Iv/Invasive Line Start (01/30/21 10:41) Cbc With Automated Diff (01/30/21 10:41) Comprehensive Metabolic Panel (01/30/21 10:41) Hs C Reactive Protein (01/30/21 10:41) Magnesium (01/30/21 10:41) Ua Culture If Indicated (01/30/21 10:41) Ns Iv 1000 Ml (Sodium Chloride 0.9%) (01/30/21 11:45) Magnesium 1 Gm/100 Ml Ivpb (Magnesium Lozada (01/30/21 11:45) Ct Head Wo (01/30/21 11:38) Arterial Blood Gas (01/30/21 11:54) Arterial Blood Draw - Obtain (01/30/21 ) Ct Lumbar Spine Wo (01/30/21 12:59) Ct Pelvis Wo (01/30/21 12:59) Thyroid Analyzer (01/30/21 14:11) Medications Given in ED Current Medications Medications Dose Ordered Sig/Byron Route Start Time Stop Time Status Last Admin Dose Admin Magnesium Sulfate/ Dextrose 100 ml @ 100 mls/hr ONCE ONCE IV 01/30/21 11:45 01/30/21 12:44 DC 01/30/21 12:02 100 MLS/HR Vital Signs/I&O 01/30/21 10:26 Temp 36.3 Pulse 55 Resp 16 B/P (MAP) 203/79 (120) Pulse Ox 98 O2 Delivery Room Air Capillary Refill : Less Than 3 Seconds Blood Pressure Mean: 120 Progress Note : Progress Note Work-up revealed hypomagnesemia and hyperglycemia. She received IV fluids to help treat the hyperglycemia. IV magnesium was infused in the ER. Patient's functional status make it unsafe for her to continue in the assisted living setting. I discussed the situation with Dr. Sandhu. He asserts that she should have admission to either improve her status or work on placement in an alternative facility. She is being admitted to work on hydration status, therapies, blood sugar control, magnesium replacement, and further assessment. She has a DO NOT RESUSCITATE order. Diagnostic Imaging Diagonstic Imaging: CT Plain Films/CT/US/NM/MRI: head Comments NAME: MARIAA TUCKER [facility] REC#: [id number] PT STATUS: ADM IN : 1940 PHYSICIAN: NADIR LIM MD ADMIT DATE: 01/30/21 Signed Date of Exam:01/30/21 CT HEAD WO PROCEDURE: CT head without contrast. TECHNIQUE: Multiple contiguous axial images were obtained through the brain without the use of intravenous contrast. Auto Exposure Controls were utilized during the CT exam to meet ALARA standards for radiation dose reduction. INDICATION: Altered mental status. COMPARISON: 05/11/2019. FINDINGS: There has been development of encephalomalacia in the area of left frontal infarct. Peripheral calcification is noted. This could be related to previous embolism. Otherwise, there is mild low density in the deep white matter of both hemispheres, most pronounced in the left frontal region. No hemorrhage is identified. There is no abnormal mass effect or shift of midline structures. Calvarium is intact and the visualized paranasal sinuses are clear. IMPRESSION: Encephalomalacia has developed in left frontal lobe at site of previously identified ischemia. Otherwise, no acute abnormality or new intracranial lesion is identified. Dictated by: Dictated on workstation # [id number] Dict: 01/30/21 1157 Trans: 01/30/21 1619 [id number] [id number] Interpreted by: GEETA LAURA MD Electronically signed by: GEETA LAURA MD 01/30/211618 Reviewed: Reviewed by Me Diagonstic Imaging: CT Plain Films/CT/US/NM/MRI: other (Lumbar spine) Comments NAME: MARIAA TUCKER Tim [facility] REC#: [id number] PT STATUS: REG ER : 1940 PHYSICIAN: NADIR LIM MD ADMIT DATE: 01/30/21/ER Signed Date of Exam:01/30/21 CT LUMBAR SPINE WO PROCEDURE: CT lumbar spine without contrast. TECHNIQUE: Multiple contiguous axial images were obtained through the lumbar spine without the use of intravenous contrast. Sagittal and coronal reformations were then performed. Auto Exposure Controls were utilized during the CT exam to meet ALARA standards for radiation dose reduction. INDICATION: Fall. Urinary tract infection. Back pain. COMPARISON: 01/23/2021. FINDINGS: There is grade 1 anterolisthesis of L4 on L5. No acute fracture or dislocation is seen in the lumbar spine. Right convexity curvature of the lumbar spine is noted. No suspicious focal osseous lesions are seen. Endplate sclerotic changes are present at the L2-L3 level with subcortical cyst formation. Multilevel degenerative changes are present in the lumbar spine with disc bulges, marginal osteophytes, and facet hypertrophy. These are greatest at the L4-L5 level with severe spinal canal stenosis and zqunvwgh-vz-sxbixd right and moderate left foraminal stenosis. No high-density material is seen within the spinal canal. The paraspinal soft tissues are unremarkable. A fat-containing lesion is seen in the superior pole of the left kidney measuring 1.5 cm. Proteinaceous or hemorrhagic cyst is seen in the inferior pole of the right kidney measuring 1.1 cm. No hydronephrosis. IMPRESSION: 1. No acute fracture or dislocation in the lumbar spine. 2. Grade 1 anterolisthesis of L4 on L5. 3. Multilevel degenerative changes in the lumbar spine, greatest at L4-L5. 4. Endplate sclerotic changes at L2-L3. 5. Fat-containing cyst in the superior pole of the left kidney measuring 1.5 cm, suggestive of angiomyolipoma. A proteinaceous or hemorrhagic cyst is seen in the inferior pole of the right kidney. Dictated by: Dictated on workstation # [id number] Dict: 01/30/21 1323 Trans: 01/30/21 133 [id number] Interpreted by: JASMINE SY DO Electronically signed by: JASMINE SY DO 01/30/21 133 Reviewed: Discussed w/Radiologist Diagonstic Imaging: CT Plain Films/CT/US/NM/MRI: pelvis Comments NAME: MARIAA TUCKER [facility] REC#: [id number] PT STATUS: ADM IN : 1940 PHYSICIAN: NADIR LIM MD ADMIT DATE: 01/30/21 Signed Date of Exam:01/30/21 CT PELVIS WO PROCEDURE: CT pelvis without contrast. TECHNIQUE: Multiple contiguous axial images were obtained through the pelvis without the use of intravenous contrast. Sagittal and coronal reformations were performed. Auto Exposure Controls were utilized during the CT exam to meet ALARA standards for radiation dose reduction. INDICATION: Fall. Bilateral sacral ala appear to be intact. There is normal femoral acetabular alignment. Both femoral heads and necks appear to be intact. The superior and inferior pubic rami are intact. SI joints are non-widened. No free fluid in the pelvis is identified. IMPRESSION: No pelvic fracture is identified. Dictated by: Dictated on workstation # [id number] Dict: 01/30/21 1324 Trans: 01/30/21 1843 [facility] [phone] Interpreted by: ENID MATA MD Electronically signed by: ENID MATA MD 01/30/21 1843 Reviewed: Reviewed by Me Departure Communication (Admissions) Time/Spoke to Admitting Phy: 14:10 Dr. Olson Impression Primary Impression: Altered mental status Qualified Codes: R41.82 - Altered mental status, unspecified Additional Impressions: Hypomagnesemia Hyperglycemia Generalized weakness Hypertension Qualified Codes: I10 - Essential (primary) hypertension Fall on same level Qualified Codes: W18.30XD - Fall on same level, unspecified, subsequent encounter Low back pain Qualified Codes: M54.50 - Low back pain, unspecified Disposition: ADMITTED INPATIENT Condition: Improved Admissions Decision to Admit Reason: Admit from ER (General) Decision to Admit/Date: Jan 30, 2021 Time/Decision to Admit Time: 14:00 Departure-Patient Inst. Referrals: RAYO SANDHU DO (PCP/Family) Primary Care Physician NADIR LIM MD Jan 30, 2021 14:58
[2021-01-30 15:50] VITALS: BP 191/69
[2021-01-30] MEDS ORDERED: ONDANSETRON 4 MG/2 ML (SDV) Z0FRAN IVP PRN (16:30)
[2021-01-30] MEDS: NS IV 1000 ML 1,000 ML IV SCH (16:56)
[2021-01-30] MEDS ORDERED: CLOT15CR6 TP (17:56)
[2021-01-30] MEDS ORDERED: AMOX1TAB12 PO (17:56)
[2021-01-30 20:21] VITALS: BP 183/67
[2021-01-30] MEDS: MAGNESIUM OXIDE (MAG-OX)400 MG TAB PO SCH (21:02)
[2021-01-30] MEDS: inSUlin ASPART (NovoLOG) 1 UNIT/0.01 ML (CHARGE PER UNIT) SC SCH (21:02)
[2021-01-30 23:30] VITALS: BP 157/69
[2021-01-31] MEDS: NS IV 1000 ML 1,000 ML IV SCH (03:09)
[2021-01-31 04:00] VITALS: BP 183/75
[2021-01-31 08:00] VITALS: BP 228/98
[2021-01-31] MEDS ORDERED: hydrALAZINE (APRESOLINE) 25 MG TAB PO ONE (08:00)
[2021-01-31] MEDS ORDERED: THERAWORKS TOP (08:35)
[2021-01-31] MEDS ORDERED: VIT1TABL26 PO (08:35)
--- NOTE | 2021-01-31 08:50 | Physical Therapy Evaluation ---
PT Evaluation-General Medical Diagnosis Admission Date Jan 30, 2021 at 14:56 Medical Diagnosis: AMS, UTI Onset Date: Jan 30, 2021 Therapy Diagnosis Therapy Diagnosis: gait deficit, Strength deficit Height/Weight Height (Feet): 5 Height (Inches): 3.00 Weight (Pounds): 221 Weight (Ounces): 3.0 Precautions Precautions/Isolations: Fall Prevention, Standard Precautions, Pressure Ulcer Referral Physician: Bambi Olson MD Reason for Referral: Evaluation/Treatment Medical History Pertinent Medical History: CVA, DM, HTN, OA, Renal Insufficiency Social History Home: Assisted Living Current Living Status: Alone Prior Prior Level of Function SCALE: Activities may be completed with or without assistive devices. 6-Yvogrsadtw-kyluuue completes the activity by him/herself with no assistance from a helper. 5-Set-up or Clean-up Assistance-helper sets up or cleans up; patient completes activity. Weldon assists only prior to or following the activity. 4-Supervision or Touching Assistance-helper provides verbal cues and/or touching/steadying and/or contact guard assistance as patient completes activity. Assistance may be provided throughout the activity or intermittently. 3-Partial/Moderate Assistance-helper does LESS THAN HALF the effort. Weldon lifts, holds or supports trunk or limbs, but provides less than half the effort. 2-Substantial/Maximal Assistance-helper does MORE THAN HALF the effort. Weldon lifts or holds trunk or limbs and provides more than half the effort. 6-Eaibucsot-gybdzu does ALL the effort. Patient does none of the effort to complete the activity. Or, the assistance of 2 or more helpers is required for the patient to complete the activity. If activity was not attempted, code reason: 7-Patient Refused. 9-Not Applicable-not attempted and the patient did not perform the activity before the current illness, exacerbation or injury. 10-Not Attempted due to Environmental Limitations-(lack of equipment, weather restraints, etc.). 88-Not Attempted due to Medical Conditions or Safety Concerns. Bed Mobility: 6 Transfers (B,C,W/C): 6 Gait: 6 Stairs: 6 Indoor Mobility (Ambulation): Independent Stairs: Independent Prior Devices Use: Walker PT Evaluation-Current Subjective Patient very drowsy and difficult to arouse. Patient lying supine in bed and once awakened, agreeable to treatment. Patient reports 0/10 pain, however reports "My back hurts so bad", during bed mobility. Objective Patient Orientation: Person, Place Attachments: Other-See Comments, IV Pure wick ROM/Strength ROM Lower Extremities WFLs bilaterally all planes with PROM. Strength Lower Extremities Unable to assess as patient unable to follow commands for MMT, however demonstrates 3-/5 with all observed LE movements. Integumentary/Posture Bladder Incontinence: Yes Neuromuscular (Tone, Coordination, Reflexes) Coordination impaired due to cognition and patient being unable to follow commands. Transfers Roll Left to Right (QC): 2 Sit to Lying (QC): 2 Lying to Sitting/Side of Bed(Q: 2 Sit to Stand (QC): 2 Chair/Hpl-rw-Mcufu Xfer(QC): 2 Gait Does the Patient Walk?: No and Walking Goal IS indicated Mode of Locomotion: Walk Anticipated Mode of Locomotion: Walk Walk 10 feet (QC): 88 Gait Assistive Device: FWW Balance Sitting Static: Fair Sitting Dynamic: Poor Standing Static: Poor Standing Dynamic: Poor Assessment/Needs Patient tolerated treatment poorly. Reports significant increase in LBP with bed mobility and transfers. Patient demonstrates difficulty with processing and performing everyday tasks. Requires excessive time and numerous attempts to perform bed mobility, rolling to her side required numerous verbal cues and eventually max assistance. Patient performs all observed bed mobility and transfers with max A. Attempted to stand with the FWW two times. Patient requires max A for both attempts and was unable to initiate ambulation. Patient required max A for SPT to the chair. Patient in the chair post treatment with all needs met, nursing notified,call light in hand and chair alarm activated. 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 PT [facility] Goals Time Frame: Feb 21, 2021 Roll Left & Right (QC): 4 Sit to Lying (QC): 4 Lying-Sitting on Side/Bed(QC): 4 Sit to Stand (QC): 4 Chair/Nel-mx-Qhveh Xfer(QC): 4 Toilet Transfer (QC): 4 Does the Patient Walk: Yes Walk 10 feet (QC): 4 Walk 50ft with 2 Turns (QC): 4 Walk 150 ft (QC): 4 PT Plan Problem List Problem List: Activity Tolerance, Functional Strength, Safety, Balance, Gait, Transfer, Bed Mobility, ROM Treatment/Plan Treatment Plan: Continue Plan of Care Treatment Plan: Bed Mobility, Education, Functional Activity Odalys, Functional Strength, Gait, Safety, Therapeutic Exercise, Transfers Treatment Duration: Mar 14, 2021 Frequency: 6 times per week Estimated Hrs Per Day: .25 hour per day Safety Risks/Education Patient Education: Gait Training, Transfer Techniques Teaching Methods: Demonstration, Discussion Response to Teaching: Reinforcement Needed Discharge Recommendations Target Placement Post Acute placement recommended Time/GCodes Time In: 820 Time Out: 855 Total Billed Treatment Time: 35 Total Billed Treatment Visit, MAVERICK Prince JOHN A PT Jan 31, 2021 08:50
[2021-01-31] MEDS: inSUlin ASPART (NovoLOG) 1 UNIT/0.01 ML (CHARGE PER UNIT) SC SCH ×4 (08:55→19:57)
[2021-01-31] MEDS: SERTRALINE 50 MG (ZOLOFT) TABLET PO SCH (08:56)
[2021-01-31] MEDS: PANTOPRAZOLE 40 MG (PROTONIX) TAB PO SCH (08:56)
[2021-01-31] MEDS: MAGNESIUM OXIDE (MAG-OX)400 MG TAB PO SCH ×2 (08:56→20:40)
[2021-01-31] MEDS: ASPIRIN E.C. 81 MG (ECOTRIN) TAB PO SCH (08:56)
[2021-01-31] MEDS: LOSARTAN 100 MG (COZAAR) TABLET PO SCH (08:56)
[2021-01-31] MEDS: hydrALAZINE (APESOLINE) 20 MG/ML VIAL IV PRN (08:57)
[2021-01-31] MEDS: LETROZOLE 2.5 MG (FEMARA) TAB PO SCH (08:57)
[2021-01-31 09:16] LABS: BASOPHILS % (AUTO) 0 % (0-10); EOSINOPHILS # (AUTO) 0.2 10^3/uL (0.0-0.3); EOSINOPHILS % (AUTO) 4 % (0-10); HEMATOCRIT 31 % (35-52); HEMOGLOBIN 10.3 g/dL (11.5-16.0); LYMPHOCYTES # (AUTO) 1.1 10^3/uL (1.0-4.0); LYMPHOCYTES % (AUTO) 23 % (12-44); MEAN CORPUSCULAR HEMOGLOBIN 31 pg (25-34); MEAN CORPUSCULAR HGB CONC 33 g/dL (32-36); MEAN CORPUSCULAR VOLUME 94 fL (80-99); MEAN PLATELET VOLUME 9.7 fL (9.0-12.2); MONOCYTES # (AUTO) 0.4 10^3/uL (0.0-1.0); MONOCYTES % (AUTO) 9 % (0-12); NEUTROPHILS % (AUTO) 63 % (42-75); PLATELET COUNT 256 10^3/uL (130-400); WHITE BLOOD COUNT 4.7 10^3/uL (4.3-11.0)
[2021-01-31 09:27] LABS: CALCIUM 10.2 MG/DL (8.5-10.1)
[2021-01-31 09:32] LABS: CREATININE SERUM 0.8 MG/DL (0.60-1.30)
[2021-01-31 09:34] LABS: MAGNESIUM 1.5 MG/DL (1.6-2.4)
[2021-01-31] MEDS: POTASSIUM CL 10MEQ/50ML IVPB 50 ML IV SCH (09:46)
[2021-01-31] MEDS: KCL 20 MEQ TAB (K-DUR) PO SCH (09:47)
[2021-01-31] MEDS: MAGNESIUM 1 GM/100 ML IVPB 100 ML IV SCH ×3 (10:40→12:45)
[2021-01-31 10:43] VITALS: BP 185/75
[2021-01-31] MEDS ORDERED: hydrALAZINE (APRESOLINE) 25 MG TAB ONE (10:47)
--- NOTE | 2021-01-31 10:56 | Occupational Therapy Eval ---
OT Evaluation-General/PLF Medical Diagnosis Admission Date Jan 30, 2021 at 14:56 Medical Diagnosis: AMS, UTI Onset Date: Jan 30, 2021 Therapy Diagnosis Therapy Diagnosis: decreased ADL status Height/Weight Height (Feet): 5 Height (Inches): 3.00 Weight (Pounds): 221 Weight (Ounces): 3.0 Precautions Precautions/Isolations: Fall Prevention, Standard Precautions, Pressure Ulcer Referral Physician: Bambi Olson MD Referral Reason: Evaluation/Treatment Medical History Pertinent Medical History: CVA, DM, HTN, OA, Renal Insufficiency Social History Home: Assisted Living Current Living Status: Alone ADL-Prior Level of Function SCALE: Activities may be completed with or without assistive devices. 8-Exobwafgto-tcigffq completes the activity by him/herself with no assistance from a helper. 5-Set-up or Clean-up Assistance-helper sets up or cleans up; patient completes activity. [place] assists only prior to or following the activity. 4-Supervision or Touching Assistance-helper provides verbal cues and/or touching/steadying and/or contact guard assistance as patient completes activity. Assistance may be provided throughout the activity or intermittently. 3-Partial/Moderate Assistance-helper does LESS THAN HALF the effort. [place] lifts, holds or supports trunk or limbs, but provides less than half the effort. 2-Substantial/Maximal Assistance-helper does MORE THAN HALF the effort. [place] lifts or holds trunk or limbs and provides more than half the effort. 6-Kryxprnkl-vqvymf does ALL the effort. Patient does none of the effort to complete the activity. Or, the assistance of 2 or more helpers is required for the patient to complete the activity. If activity was not attempted, code reason: 7-Patient Refused. 9-Not Applicable-not attempted and the patient did not perform the activity before the current illness, exacerbation or injury. 10-Not Attempted due to Environmental Limitations-(lack of equipment, weather restraints, etc.). 88-Not Attempted due to Medical Conditions or Safety Concerns. ADL PLOF Comments Pt unclear on her PLOF, she indicates she has assistance when she needs it with ADLs and states "I think I could do it" when asked about her ability. Pt reports someone has been helping her in the shower and she has assistance with toileting when she needs the assistance. She uses a walker for functional mobility. Self Care: Unknown Functional Cognition: Unknown OT Current Status Subjective Pt in chair sleeping, easily awoken and agreeable to tx. Mental Status/Objective Patient Orientation: Person, Confused Attachments: IV Current Upper Extremity ROM WFL, BUE shoulder flexion to approx 120 degrees Upper Extremity Sensation WFL Upper Extremity Strength grossly 3/5 ADL-Treatment Eating (QC): 6 (IND with coffee) Other Treatments Pt up in recliner, OT educated pt on purpose/benefit of OT. Pt provided informat ion about PLOF and home set up to her ability. Pt able to brush her hair when handed a brush, denies therapist assistance. Per clinical judgment, pt requires min A with tangles in back of her hair, but pt did not accept assistance with it. Pt able to take a drink of coffee without assistance. Pt completed x3 reps of the following BUE exercises: shoulder flexion, elbow flexion/extension and finger flexion/extension. Pt appeared drowsy throughout session, having difficulty keeping her eyes open and appeared to forget what she was saying. Post tx, pt up in recliner, call light in reach and all needs met. Education OT Patient Education: Correct positioning, Modified ADL techniques, Progress toward Goal/Update tx plan, Purpose of tx/functional activities Teaching Recipient: Patient Teaching Methods: Discussion Response to Teaching: Reinforcement Needed OT Shelter Goals Warehouse Distribution Manager Goals Time Frame: Feb 09, 2021 Eating (QC): 6 Oral Hygiene (QC): 6 Toileting Hygiene (QC): 4 Shower/Bathe Self (QC): 3 Upper Body Dressing (QC): 4 Lower Body Dressing (QC): 3 On/Off Footwear (QC): 3 Additional Goals: 1-Demonstrate ADL Tasks, 2-Verbalize Understanding, 3- ImproveStrength/Odalys 1=Demonstrate adherence to instructed precautions during ADL tasks. 2=Patient will verbalize/demonstrate understanding of assistive devices/modifications for ADL. 3=Patient will improve strength/tolerance for activity to enable patient to perform ADL's. OT Education/Plan Problem List/Assessment Assessment: Decreased Activ Tolerance, Decreased UE Strength, Impaired Funct Balance, Impaired I ADL's, Impaired Self-Care Skills Discharge Recommendations Plan/Recommendations: Continue POC Treatment Plan/Plan of Care Patient would benefit from OT for education, treatment and training to promote independence in ADL's, mobility, safety and/or upper extremity function for ADL's. Plan of Care: ADL Retraining, Functional Mobility, UE Funct Exercise/Act Treatment Duration: Feb 09, 2021 Frequency: 5 times per week Estimated Hrs Per Day: .25 hour per day Rehab Potential: Fair Time/GCodes Start Time: 10:32 Stop Time: 10:42 Total Time Billed (hr/min): 10 Billed Treatment Time 1, MIC MENA OT Jan 31, 2021 10:56
--- NOTE | 2021-01-31 11:07 | History & Physical-Hospitalist ---
History of Present Illness HPI/Chief Complaint Mariaa Mahoney is a 81 year old female with PMH HTN, T2DM, morbid obesity, who presented with confusion. She reports that she has had memory problems recently. She has been having trouble getting around at home. She uses a walked with assistance. She has not been moving much recently. She denies pain. She denies fevers. She denies nausea and vomiting. She denies abdominal pain. She was recently treated for a urinary tract infection. Source: patient Exam Limitations: no limitations Date Seen 01/31/21 Time Seen by a Provider: 09:35 Attending Physician David Lopez MD PCP Emerson Odom DO Referring Physician Date of Admission Jan 30, 2021 at 14:56 Home Medications & Allergies Home Medications Reviewed patient Home Medication Reconciliation performed by pharmacy medication reconciliations time study technician and/or nursing. Patients Allergies have been reviewed. Allergies Allergies Coded Allergies No Known Drug Allergies (Unverified10/29/18) Past Ifbiago-Dddjnj-Svuwaa Hx Patient Social History Tobacco Use?: No Substance use?: No Alcohol Use?: No Immunizations Up To Date Date of Influenza Vaccine: Oct 25, 2020 First/Initial COVID19 Vaccinat: vaccinated 2020 Second COVID19 Vaccination Darío: UNKNOWN Tetanus Booster (TDap): Unknown Hepatitis A: Yes Hepatitis B: Yes PED Vaccines UTD: Yes Date of Pneumonia Vaccine: Mar 17, 2014 Seasonal Allergies Seasonal Allergies: Yes (MILD) Current Status Advance Directives: No Communicates: Verbally Primary Language: Trinidadian Preferred Spoken Language: Trinidadian Is interpretation needed?: No Past Medical History Surgeries: Abdominal, Tonsillectomy, Tubal Ligation High Cholesterol, Hypertension Stroke 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 Sexually Transmitted Disease: No HIV/AIDS: No Bladder Infection Degenerate Disk Disease, Arthritis, Chronic Back Pain Diabetes, Non-Insulin dep Loss of Vision: Denies Hearing Impairment: Denies Breast, Colon Did You Recieve Any Treatments: Yes What Type of Treatment Did You: Surgical Intervention Depression Blood Disorders: No Adverse Reaction/Blood Tranf: No (N/A) Family Medical History Alcoholism 19 FATHER Completed stroke 19 MOTHER Dementia 19 MOTHER Diabetes mellitus 19 MOTHER G8 BROTHER FH: breast cancer G8 SISTER FH: uterine cancer 19 MOTHER Hypertension G8 BROTHER Respiratory disorder 19 FATHER Review of Systems Constitutional: weakness EENTM: no symptoms reported Respiratory: no symptoms reported Cardiovascular: no symptoms reported Gastrointestinal: no symptoms reported Genitourinary: no symptoms reported Musculoskeletal: no symptoms reported Skin: no symptoms reported Psychiatric/Neurological: No Symptoms Reported Physical Exam Physical Exam Vital Signs Vital Signs - First Documented 01/30/21 10:26 Temp 36.3 Pulse 55 Resp 16 B/P (MAP) 203/79 (120) Pulse Ox 98 O2 Delivery Room Air Capillary Refill : Less Than 3 Seconds Height, Weight, BMI Height: 5'3.00" Weight: 221lbs. 3.0oz. [id number]; 41.01 BMI Method: General Appearance: No Apparent Distress, Chronically ill, Obese HEENT: PERRL/EOMI, Pharynx Normal Neck: Normal Inspection, Supple Respiratory: Lungs Clear, Normal Breath Sounds, No Respiratory Distress Cardiovascular: Regular Rate, Rhythm, No Edema, No Murmur Gastrointestinal: Normal Bowel Sounds, Non Tender, Soft Extremity: Normal Inspection, Non Tender, No Pedal Edema Neurologic/Psychiatric: Alert, Oriented x3, Depressed Affect, Motor Weakness Skin: Normal Color, Warm/Dry Results Results/Procedures Labs Laboratory Tests 01/30/21 11:05 01/31/21 09:07 Patient resulted labs reviewed. Imaging: Reviewed Imaging Report Assessment/Plan Admission Diagnosis Hypertensive encephalopathy Admission Status: Inpatient Order (span 2 midnights) Reason for Inpatient Admission: Blood pressure control Assessment and Plan HTN encephalopathy Hypertension SBP >200 Continue Losartan Increase Coreg Add hydralazine IV hydralazine as needed T2DM Levemir Sliding scale insulin Debility PT/OT SW consulted Hypomagnesemia Monitor and replace as needed Morbid obesity Clinically significant, no acute management needs DVT prophylaxis: Lovenox Diagnosis/Problems Diagnosis/Problems (1) Hypertensive encephalopathy Status: Acute (2) Hypertension Status: Chronic Qualifiers: Hypertension type: primary hypertension Qualified Codes: I10 - Essential (primary) hypertension (3) Debility Status: Acute (4) T2DM (type 2 diabetes mellitus) Status: Chronic Qualifiers: Diabetes mellitus long term care social worker insulin use: with jail use (5) Morbid obesity Status: Chronic DAVID LOPEZ MD Jan 31, 2021 11:07
[2021-01-31 12:00] VITALS: BP 160/68
[2021-01-31] MEDS: ENOXAPARIN 40 MG/0.4 ML (LOVENOX) SYR SQ SCH ×2 (12:45→23:53)
[2021-01-31] MEDS ORDERED: hydrALAZINE (APRESOLINE) 25 MG TAB PO SCH (14:00)
[2021-01-31] MEDS: hydrALAZINE (APRESOLINE) 25 MG TAB PO SCH ×2 (14:11→22:23)
[2021-01-31] MEDS ORDERED: ACETAMINOPHEN 325 MG TABLET ONE (14:12)
[2021-01-31] MEDS: ACETAMINOPHEN 325 MG TABLET PO PRN (14:17)
[2021-01-31 16:00] VITALS: BP 144/65
[2021-01-31 19:32] VITALS: BP 182/86
[2021-01-31] MEDS: MICONAZOLE 2% POWDER (DESENEX AF) 90 GM TOP SCH (20:44)
[2021-02-01] VITALS (9 sets, daily range): BP systolic 119–210; BP diastolic 60–88
[2021-02-01] MEDS: hydrALAZINE (APRESOLINE) 25 MG TAB PO SCH ×3 (06:44→21:42)
[2021-02-01] MEDS: inSUlin ASPART (NovoLOG) 1 UNIT/0.01 ML (CHARGE PER UNIT) SC SCH ×4 (07:39→21:13)
[2021-02-01] MEDS ORDERED: amLODIPine 5 MG (NORVASC) TAB PO SCH (09:00)
[2021-02-01] MEDS: MAGNESIUM OXIDE (MAG-OX)400 MG TAB PO SCH ×2 (09:02→19:51)
[2021-02-01] MEDS: ASPIRIN E.C. 81 MG (ECOTRIN) TAB PO SCH (09:03)
[2021-02-01] MEDS: LOSARTAN 100 MG (COZAAR) TABLET PO SCH (09:03)
[2021-02-01] MEDS: SERTRALINE 50 MG (ZOLOFT) TABLET PO SCH (09:03)
[2021-02-01] MEDS: PANTOPRAZOLE 40 MG (PROTONIX) TAB PO SCH (09:03)
[2021-02-01] MEDS: LETROZOLE 2.5 MG (FEMARA) TAB PO SCH (09:04)
[2021-02-01] MEDS: MICONAZOLE 2% POWDER (DESENEX AF) 90 GM TOP SCH ×2 (09:05→19:51)
[2021-02-01 09:49] LABS: CALCIUM 10.9 MG/DL (8.5-10.1); CREATININE SERUM 0.78 MG/DL (0.60-1.30); MAGNESIUM 1.4 MG/DL (1.6-2.4); POTASSIUM 3.7 MMOL/L (3.6-5.0)
[2021-02-01] MEDS: POTASSIUM CL 10MEQ/50ML IVPB 50 ML IV SCH (10:12)
[2021-02-01] MEDS: KCL 20 MEQ TAB (K-DUR) PO SCH (10:12)
[2021-02-01] MEDS: MAGNESIUM 1 GM/100 ML IVPB 100 ML IV SCH ×3 (10:24→11:53)
--- NOTE | 2021-02-01 11:09 | Progress Note - Hospitalist ---
Subjective HPI/CC On Admission Date Seen by Provider: Feb 01, 2021 Time Seen by Provider: 09:20 Mariaa Mahoney is a 81 year old female with PMH HTN, T2DM, morbid obesity, who presented with confusion. She reports that she has had memory problems recently. She has been having trouble getting around at home. She uses a walked with keesha tance. She has not been moving much recently. She denies pain. She denies fevers. She denies nausea and vomiting. She denies abdominal pain. She was recently treated for a urinary tract infection. Subjective/Events-last exam She is feeling better. She has not been getting around very well. She is agreeable to going to a long-term facility if needed. Objective Exam Vital Signs Vital Signs Date Time Temp Pulse Resp B/P (MAP) Pulse Ox O2 Delivery O2 Flow Rate FiO2 02/01/21 08:00 Room Air 02/01/21 08:00 36.2 51 18 197/79 (118) 95 Capillary Refill : Less Than 3 Seconds General Appearance: No Apparent Distress, Obese Respiratory: Lungs Clear, Normal Breath Sounds, No Respiratory Distress Cardiovascular: Regular Rate, Rhythm, No Murmur Gastrointestinal: Normal Bowel Sounds, Non Tender, Soft Extremity: Normal Inspection; No Non Tender; Pedal Edema Neurologic/Psychiatric: Alert, Oriented x3, Normal Mood/Affect, Motor Weakness Skin: Normal Color, Warm/Dry Results/Procedures Lab Laboratory Tests 02/01/21 09:25 Patient resulted labs reviewed. Imaging: Reviewed Imaging Report Assessment/Plan Assessment and Plan Assess & Plan/Chief Complaint HTN encephalopathy Hypertension BP remains elevated Continue Losartan and Coreg Continue Hydralazine Add Amlodipine IV Hydralazine as needed T2DM Levemir Sliding scale insulin Debility PT/OT SW consulted Hypomagnesemia Monitor and replace as needed Morbid obesity Clinically significant, no acute management needs DVT prophylaxis: Lovenox Diagnosis/Problems Diagnosis/Problems (1) Hypertensive encephalopathy Status: Acute (2) Hypertension Status: Chronic Qualifiers: Hypertension type: primary hypertension Qualified Codes: I10 - Essential (primary) hypertension (3) Debility Status: Acute (4) T2DM (type 2 diabetes mellitus) Status: Chronic Qualifiers: Diabetes mellitus usp insulin use: with intermediate school teacher use (5) Morbid obesity Status: Chronic DAVID LOPEZ MD Feb 01, 2021 11:09
--- NOTE | 2021-02-01 11:44 | Physical Therapy Daily Note ---
PT Daily Note-Current Subjective Patient up in recliner via nursing staff. Patient agrees to PT. Mental Status Patient Orientation: Confused Attachments: IV Transfers SCALE: Activities may be completed with or without assistive devices. 7-Jvqqmguwid-enqmqbn completes the activity by him/herself with no assistance from a helper. 5-Set-up or Clean-up Assistance-helper sets up or cleans up; patient completes activity. [place] assists only prior to or following the activity. 4-Supervision or Touching Assistance-helper provides verbal cues and/or touching/steadying and/or contact guard assistance as patient completes activity. Assistance may be provided throughout the activity or intermittently. 3-Partial/Moderate Assistance-helper does LESS THAN HALF the effort. [place] lifts, holds or supports trunk or limbs, but provides less than half the effort. 2-Substantial/Maximal Assistance-helper does MORE THAN HALF the effort. [place] lifts or holds trunk or limbs and provides more than half the effort. 7-Vlljzqqms-qucsbd does ALL the effort. Patient does none of the effort to complete the activity. Or, the assistance of 2 or more helpers is required for the patient to complete the activity. If activity was not attempted, code reason: 7-Patient Refused. 9-Not Applicable-not attempted and the patient did not perform the activity before the current illness, exacerbation or injury. 10-Not Attempted due to Environmental Limitations-(lack of equipment, weather restraints, etc.). 88-Not Attempted due to Medical Conditions or Safety Concerns. Sit to Stand (QC): 2 Gait Training Distance: 10' Walk 10 feet (QC): 2 Walk 50 ft with 2 Turns(QC): 88 Gait Assistive Device: FWW very slow, shuffle gait, WBOS Exercises Seated Therapy Exercises: Ankle pumps, Long arc quads Seated Reps: 12 Assessment Patient requires constant redirection to remain on task. Patient tolerates minimal activity and remains up in recliner with tray in situ. PT Half-Way Goals Half-Way Goals PT Ground Operations Crew Member Goals Time Frame: Feb 21, 2021 Roll Left & Right (QC): 4 Sit to Lying (QC): 4 Lying-Sitting on Side/Bed(QC): 4 Sit to Stand (QC): 4 Chair/Vsj-ro-Qnvji Xfer(QC): 4 Toilet Transfer (QC): 4 Does the Patient Walk: Yes Walk 10 feet (QC): 4 Walk 50ft with 2 Turns (QC): 4 Walk 150 ft (QC): 4 PT Plan Treatment/Plan Treatment Plan: Continue Plan of Care Treatment Plan: Bed Mobility, Education, Functional Activity Odalys, Functional Strength, Gait, Safety, Therapeutic Exercise, Transfers Treatment Duration: Mar 14, 2021 Frequency: 6 times per week Estimated Hrs Per Day: .25 hour per day Time/GCodes Time In: 1124 Time Out: 1134 Total Billed Treatment Time: 10 Total Billed Treatment 1 visit GT 10 min PAUL REYES PT Feb 01, 2021 11:44
[2021-02-01] MEDS: ENOXAPARIN 40 MG/0.4 ML (LOVENOX) SYR SQ SCH ×3 (11:53→23:44)
--- NOTE | 2021-02-01 13:49 | Occupational Ther Daily Note ---
OT Current Status-Daily Note Subjective Pt dozing in recliner, woke to name being called 3x's. Pt drowsy and required multiple verbal cues to wake. Mental Status/Objective Patient Orientation: Person, Unable to Assess Attachments: IV ADL-Treatment Therapy Code Descriptions/Definitions Functional [place] Measure: 0=Not Assessed/NA 4=Minimal Assistance 1=Total Assistance 5=Supervision or Setup 2=Maximal Assistance 6=Modified [place] 3=Moderate Assistance 7=Complete IndependenceSCALE: Activities may be completed with or without assistive devices. 0-Rbjwzcptnx-fzafwou completes the activity by him/herself with no assistance from a helper. 5-Set-up or Clean-up Assistance-helper sets up or cleans up; patient completes activity. [place] assists only prior to or following the activity. 4-Supervision or Touching Assistance-helper provides verbal cues and/or touching/steadying and/or contact guard assistance as patient completes ac tivity. Assistance may be provided throughout the activity or intermittently. 3-Partial/Moderate Assistance-helper does LESS THAN HALF the effort. [place] lifts, holds or supports trunk or limbs, but provides less than half the effort. 2-Substantial/Maximal Assistance-helper does MORE THAN HALF the effort. [place] lifts or holds trunk or limbs and provides more than half the effort. 2-Igbamswpj-lzluqs does ALL the effort. Patient does none of the effort to complete the activity. Or, the assistance of 2 or more helpers is required for the patient to complete the activity. If activity was not attempted, code reason: 7-Patient Refused. 9-Not Applicable-not attempted and the patient did not perform the activity before the current illness, exacerbation or injury. 10-Not Attempted due to Environmental Limitations-(lack of equipment, weather restraints, etc.). 88-Not Attempted due to Medical Conditions or Safety Concerns. Other Treatment Pt agrees to move from recliner to bed. Pt requires verbal and physical cues for hand placement when safely pushing up to stand. Mod A for sit to stand then CGA in standing using FWW. Min A to transfer from recliner to bed with FWW, multiple cues for moving feet and direction to turn. Min A to lift BLE's in bed and pt able to position self in bed. After session, pt lying in bed. Nrsg in room. All needs met in room. OT Mcc Goals Salesperson Parts Goals Time Frame: Feb 09, 2021 Eating (QC): 6 Oral Hygiene (QC): 6 Toileting Hygiene (QC): 4 Shower/Bathe Self (QC): 3 Upper Body Dressing (QC): 4 Lower Body Dressing (QC): 3 On/Off Footwear (QC): 3 Additional Goals: 1-Demonstrate ADL Tasks, 2-Verbalize Understanding, 3- ImproveStrength/Odalys 1=Demonstrate adherence to instructed precautions during ADL tasks. 2=Patient will verbalize/demonstrate understanding of assistive devices/modifications for ADL. 3=Patient will improve strength/tolerance for activity to enable patient to perform ADL's. OT Education/Plan Problem List/Assessment Assessment: Decreased Activ Tolerance, Impaired Coordination, Impaired Funct Balance, Impaired Self-Care Skills Discharge Recommendations Plan/Recommendations: Continue POC Treatment Plan/Plan of Care Patient would benefit from OT for education, treatment and training to promote independence in ADL's, mobility, safety and/or upper extremity function for ADL's. Plan of Care: ADL Retraining, Functional Mobility, UE Funct Exercise/Act Treatment Duration: Feb 09, 2021 Frequency: 5 times per week Estimated Hrs Per Day: .25 hour per day Rehab Potential: Fair Time/GCodes Start Time: 12:45 Stop Time: 13:00 Total Time Billed (hr/min): 15 Billed Treatment Time 1 visit-FA 1 (15 min) ANAI PACK Feb 01, 2021 13:49
[2021-02-01] MEDS: hydrALAZINE (APESOLINE) 20 MG/ML VIAL IV PRN (16:08)
[2021-02-01] MEDS ORDERED: hydrALAZINE (APRESOLINE) 25 MG TAB PO NR (16:30)
[2021-02-02] VITALS (8 sets, daily range): BP systolic 100–187; BP diastolic 58–84
[2021-02-02] MEDS: inSUlin ASPART (NovoLOG) 1 UNIT/0.01 ML (CHARGE PER UNIT) SC SCH ×6 (05:25→21:22)
[2021-02-02 05:51] LABS: POTASSIUM 3.7 MMOL/L (3.6-5.0)
[2021-02-02 05:52] LABS: CALCIUM 10.5 MG/DL (8.5-10.1)
[2021-02-02] MEDS: POTASSIUM CL 10MEQ/50ML IVPB 50 ML IV SCH (05:54)
[2021-02-02] MEDS: KCL 20 MEQ TAB (K-DUR) PO SCH (05:54)
[2021-02-02 05:57] LABS: CREATININE SERUM 0.96 MG/DL (0.60-1.30)
[2021-02-02] MEDS: MAGNESIUM 1 GM/100 ML IVPB 100 ML IV SCH (06:00)
[2021-02-02] MEDS: hydrALAZINE (APRESOLINE) 25 MG TAB PO SCH ×4 (06:29→21:22)
[2021-02-02] MEDS: MAGNESIUM OXIDE (MAG-OX)400 MG TAB PO SCH ×2 (08:17→21:22)
[2021-02-02] MEDS: ASPIRIN E.C. 81 MG (ECOTRIN) TAB PO SCH (08:17)
[2021-02-02] MEDS: LOSARTAN 100 MG (COZAAR) TABLET PO SCH (08:17)
[2021-02-02] MEDS: SERTRALINE 50 MG (ZOLOFT) TABLET PO SCH (08:17)
[2021-02-02] MEDS: PANTOPRAZOLE 40 MG (PROTONIX) TAB PO SCH (08:18)
[2021-02-02] MEDS: amLODIPine 10 MG (NORVASC) TAB PO SCH (08:18)
[2021-02-02] MEDS: MICONAZOLE 2% POWDER (DESENEX AF) 90 GM TOP SCH ×2 (08:18→21:22)
[2021-02-02] MEDS: LETROZOLE 2.5 MG (FEMARA) TAB PO SCH (08:23)
[2021-02-02] MEDS ORDERED: amLODIPine 5 MG (NORVASC) TAB PO SCH (09:00)
[2021-02-02] MEDS: ENOXAPARIN 40 MG/0.4 ML (LOVENOX) SYR SQ SCH ×2 (12:08→23:29)
--- NOTE | 2021-02-02 12:34 | Occupational Ther Daily Note ---
OT Current Status-Daily Note Subjective Pt drowsy, lying in bed. Pt agrees to therapy after encouragement. No c/o pain. Mental Status/Objective Patient Orientation: Person, Unable to Assess Attachments: IV ADL-Treatment Therapy Code Descriptions/Definitions Functional [place] Measure: 0=Not Assessed/NA 4=Minimal Assistance 1=Total Assistance 5=Supervision or Setup 2=Maximal Assistance 6=Modified [place] 3=Moderate Assistance 7=Complete IndependenceSCALE: Activities may be completed with or without assistive devices. 1-Slooregtqs-nhlssvk completes the activity by him/herself with no assistance from a helper. 5-Set-up or Clean-up Assistance-helper sets up or cleans up; patient completes activity. [place] assists only prior to or following the activity. 4-Supervision or Touching Assistance-helper provides verbal cues and/or touching/steadying and/or contact guard assistance as patient completes activity. Assistance may be provided throughout the activity or intermittently. 3-Partial/Moderate Assistance-helper does LESS THAN HALF the effort. [place] lifts, holds or supports trunk or limbs, but provides less than half the effort. 2-Substantial/Maximal Assistance-helper does MORE THAN HALF the effort. [place] lifts or holds trunk or limbs and provides more than half the effort. 2-Uewngrurx-ojhrac does ALL the effort. Patient does none of the effort to complete the activity. Or, the assistance of 2 or more helpers is required for the patient to complete the activity. If activity was not attempted, code reason: 7-Patient Refused. 9-Not Applicable-not attempted and the patient did not perform the activity before the current illness, exacerbation or injury. 10-Not Attempted due to Environmental Limitations-(lack of equipment, weather restraints, etc.). 88-Not Attempted due to Medical Conditions or Safety Concerns. Other Treatment Mod A for supine to EOB. Sitting EOB independently. Mod A for sit to stand with multiple physical/verbal cues for correct hand placement. Pt required verbal cues and mod A to ambulated 6 steps from bed to recliner. After therapy, pt sitting in recliner with call light/phone. All needs met. OT Certified Fraud Examiner Goals Certified Fraud Examiner Goals Time Frame: Feb 09, 2021 Eating (QC): 6 Oral Hygiene (QC): 6 Toileting Hygiene (QC): 4 Shower/Bathe Self (QC): 3 Upper Body Dressing (QC): 4 Lower Body Dressing (QC): 3 On/Off Footwear (QC): 3 Additional Goals: 1-Demonstrate ADL Tasks, 2-Verbalize Understanding, 3- ImproveStrength/Odalys 1=Demonstrate adherence to instructed precautions during ADL tasks. 2=Patient will verbalize/demonstrate understanding of assistive devices/modifications for ADL. 3=Patient will improve strength/tolerance for activity to enable patient to perform ADL's. OT Education/Plan Problem List/Assessment Assessment: Decreased Activ Tolerance, Decreased Safety Aware, Impaired Cognition, Impaired Self-Care Skills Discharge Recommendations Plan/Recommendations: Continue POC Treatment Plan/Plan of Care Patient would benefit from OT for education, treatment and training to promote independence in ADL's, mobility, safety and/or upper extremity function for ADL's. Plan of Care: ADL Retraining, Functional Mobility, UE Funct Exercise/Act Treatment Duration: Feb 09, 2021 Frequency: 5 times per week Estimated Hrs Per Day: .25 hour per day Rehab Potential: Fair Time/GCodes Start Time: 11:10 Stop Time: 11:25 Total Time Billed (hr/min): 15 Billed Treatment Time 1 visit-FA 1 (15 min) ANAI PCAK Feb 02, 2021 12:34
--- NOTE | 2021-02-02 13:24 | Progress Note - Hospitalist ---
Subjective HPI/CC On Admission Date Seen by Provider: Feb 02, 2021 Time Seen by Provider: 09:50 Mariaa Mahoney is a 81 year old female with PMH HTN, T2DM, morbid obesity, who presented with confusion. She reports that she has had memory problems recently. She has been having trouble getting around at home. She uses a walked with keesha tance. She has not been moving much recently. She denies pain. She denies fevers. She denies nausea and vomiting. She denies abdominal pain. She was recently treated for a urinary tract infection. Subjective/Events-last exam She is sleeping upon my arrival. She easily awakens. She says she is sleepy. She is ready to eat breakfast. She denies pain. She has no complaints or concerns. Objective Exam Vital Signs Vital Signs Date Time Temp Pulse Resp B/P (MAP) Pulse Ox O2 Delivery O2 Flow Rate FiO2 02/02/21 11:45 36.4 53 18 176/75 (108) 95 Room Air Capillary Refill : Less Than 3 Seconds General Appearance: No Apparent Distress, Obese Respiratory: Lungs Clear, Normal Breath Sounds, No Respiratory Distress Cardiovascular: Regular Rate, Rhythm, No Edema, No Murmur Gastrointestinal: Normal Bowel Sounds, Non Tender, Soft Extremity: Normal Inspection, Non Tender, No Pedal Edema Neurologic/Psychiatric: Alert, Depressed Affect, Motor Weakness Skin: Normal Color, Warm/Dry Results/Procedures Lab Laboratory Tests 02/02/21 05:21 Patient resulted labs reviewed. Imaging: Reviewed Imaging Report Assessment/Plan Assessment and Plan Assess & Plan/Chief Complaint HTN encephalopathy Hypertension BP remains elevated Continue Losartan Continue Coreg Continue Hydralazine Continue Amlodipine Add Doxazosin IV Hydralazine as needed T2DM Increase Levemir Add Novolog with meals Sliding scale insulin Debility PT/OT SW consulted Hypomagnesemia Monitor and replace as needed Morbid obesity Clinically significant, no acute management needs DVT prophylaxis: Lovenox Diagnosis/Problems Diagnosis/Problems (1) Hypertensive encephalopathy Status: Acute (2) Hypertension Status: Chronic Qualifiers: Hypertension type: primary hypertension Qualified Codes: I10 - Essential (primary) hypertension (3) Debility Status: Acute (4) T2DM (type 2 diabetes mellitus) Status: Chronic Qualifiers: Diabetes mellitus manager long term care insulin use: with correction use (5) Morbid obesity Status: Chronic DAVID LOPEZ MD Feb 02, 2021 13:24
[2021-02-02] MEDS ORDERED: doxAzosin 1 MG (CARDURA) TAB PO SCH (21:00)
[2021-02-03 00:06] VITALS: BP 166/70
[2021-02-03] MEDS: hydrALAZINE (APESOLINE) 20 MG/ML VIAL IV PRN (03:04)
[2021-02-03 03:43] VITALS: BP 180/80
[2021-02-03 06:10] LABS: POTASSIUM 3.9 MMOL/L (3.6-5.0)
[2021-02-03 06:11] LABS: CALCIUM 10.8 MG/DL (8.5-10.1)
[2021-02-03] MEDS: KCL 20 MEQ TAB (K-DUR) PO SCH (06:13)
[2021-02-03] MEDS: POTASSIUM CL 10MEQ/50ML IVPB 50 ML IV SCH (06:13)
[2021-02-03] MEDS: inSUlin ASPART (NovoLOG) 1 UNIT/0.01 ML (CHARGE PER UNIT) SC SCH ×6 (06:14→19:46)
[2021-02-03 06:16] LABS: CREATININE SERUM 0.91 MG/DL (0.60-1.30)
[2021-02-03 06:18] LABS: MAGNESIUM 1.9 MG/DL (1.6-2.4)
[2021-02-03] MEDS: MAGNESIUM 1 GM/100 ML IVPB 100 ML IV SCH (06:23)
[2021-02-03] MEDS: hydrALAZINE (APRESOLINE) 25 MG TAB PO SCH ×3 (07:08→22:17)
[2021-02-03 08:00] VITALS: BP 145/65
[2021-02-03] MEDS: ACETAMINOPHEN 325 MG TABLET PO PRN (08:46)
[2021-02-03] MEDS: MAGNESIUM OXIDE (MAG-OX)400 MG TAB PO SCH ×2 (08:49→22:17)
[2021-02-03] MEDS: SERTRALINE 50 MG (ZOLOFT) TABLET PO SCH (08:49)
[2021-02-03] MEDS: LOSARTAN 100 MG (COZAAR) TABLET PO SCH (08:49)
[2021-02-03] MEDS: PANTOPRAZOLE 40 MG (PROTONIX) TAB PO SCH (08:49)
[2021-02-03] MEDS: amLODIPine 10 MG (NORVASC) TAB PO SCH (08:49)
[2021-02-03] MEDS: ASPIRIN E.C. 81 MG (ECOTRIN) TAB PO SCH (08:50)
[2021-02-03] MEDS: LETROZOLE 2.5 MG (FEMARA) TAB PO SCH ×3 (09:00→10:20)
[2021-02-03] MEDS: MICONAZOLE 2% POWDER (DESENEX AF) 90 GM TOP SCH ×2 (09:48→22:17)
--- NOTE | 2021-02-03 10:24 | Progress Note - Hospitalist ---
Subjective HPI/CC On Admission Date Seen by Provider: Feb 03, 2021 Time Seen by Provider: 09:35 Mariaa Mahoney is a 81 year old female with PMH HTN, T2DM, morbid obesity, who presented with confusion. She reports that she has had memory problems recently. She has been having trouble getting around at home. She uses a walked with keesha tance. She has not been moving much recently. She denies pain. She denies fevers. She denies nausea and vomiting. She denies abdominal pain. She was recently treated for a urinary tract infection. Subjective/Events-last exam She has no complaints. She is sitting in her chair. She denies pain. Objective Exam Vital Signs Vital Signs Date Time Temp Pulse Resp B/P (MAP) Pulse Ox O2 Delivery O2 Flow Rate FiO2 02/03/21 08:00 Room Air 02/03/21 08:00 36.7 65 16 145/65 (91) 94 Capillary Refill : Less Than 3 Seconds General Appearance: No Apparent Distress, Obese Respiratory: Lungs Clear, Normal Breath Sounds, No Respiratory Distress Cardiovascular: Regular Rate, Rhythm, No Edema, No Murmur Gastrointestinal: Normal Bowel Sounds, Non Tender, Soft Extremity: Normal Inspection, Non Tender, No Pedal Edema Neurologic/Psychiatric: Alert, Oriented x3, Depressed Affect, Motor Weakness Skin: Normal Color, Warm/Dry Results/Procedures Lab Laboratory Tests 02/03/21 05:15 Patient resulted labs reviewed. Imaging: Reviewed Imaging Report Assessment/Plan Assessment and Plan Assess & Plan/Chief Complaint HTN encephalopathy Hypertension BP remains elevated Continue Losartan Continue Coreg Decreased Hydralazine Continue Amlodipine Add Doxazosin IV Hydralazine as needed T2DM Increase Levemir Increase Novolog with meals Sliding scale insulin Debility PT/OT SW consulted Hypomagnesemia Monitor and replace as needed Morbid obesity Clinically significant, no acute management needs DVT prophylaxis: Lovenox Diagnosis/Problems Diagnosis/Problems (1) Hypertensive encephalopathy Status: Acute (2) Hypertension Status: Chronic Qualifiers: Hypertension type: primary hypertension Qualified Codes: I10 - Essential (primary) hypertension (3) Debility Status: Acute (4) T2DM (type 2 diabetes mellitus) Status: Chronic Qualifiers: Diabetes mellitus senior care insulin use: with watermelon inspector use (5) Morbid obesity Status: Chronic DAVID LOPEZ MD Feb 03, 2021 10:24
[2021-02-03 11:12] VITALS: BP 136/60
[2021-02-03] MEDS: ENOXAPARIN 40 MG/0.4 ML (LOVENOX) SYR SQ SCH ×2 (13:27→22:17)
[2021-02-03 16:00] VITALS: BP 122/52
[2021-02-03 19:28] VITALS: BP 132/63
[2021-02-03] MEDS ORDERED: doxAzosin 4 MG (CARDURA) TAB PO SCH (21:00)
[2021-02-03] MEDS: doxAzosin 1 MG (CARDURA) TAB PO SCH (22:17)
[2021-02-04] VITALS (7 sets, daily range): BP systolic 104–166; BP diastolic 25–75
[2021-02-04] MEDS: hydrALAZINE (APRESOLINE) 25 MG TAB PO SCH ×3 (06:38→20:47)
[2021-02-04] MEDS: inSUlin ASPART (NovoLOG) 1 UNIT/0.01 ML (CHARGE PER UNIT) SC SCH ×6 (06:38→20:16)
[2021-02-04] MEDS: LOSARTAN 100 MG (COZAAR) TABLET PO SCH (08:58)
[2021-02-04] MEDS: amLODIPine 10 MG (NORVASC) TAB PO SCH (08:58)
[2021-02-04] MEDS: ASPIRIN E.C. 81 MG (ECOTRIN) TAB PO SCH (08:58)
[2021-02-04] MEDS: MAGNESIUM OXIDE (MAG-OX)400 MG TAB PO SCH ×2 (08:58→20:48)
[2021-02-04] MEDS: PANTOPRAZOLE 40 MG (PROTONIX) TAB PO SCH (08:58)
[2021-02-04] MEDS: SERTRALINE 50 MG (ZOLOFT) TABLET PO SCH (08:58)
[2021-02-04] MEDS: LETROZOLE 2.5 MG (FEMARA) TAB PO SCH (08:59)
[2021-02-04] MEDS: MICONAZOLE 2% POWDER (DESENEX AF) 90 GM TOP SCH ×2 (08:59→20:48)
[2021-02-04 09:27] LABS: ALBUMIN 3.5 GM/DL (3.2-4.5)
[2021-02-04 09:28] LABS: POTASSIUM 4.2 MMOL/L (3.6-5.0)
[2021-02-04 09:29] LABS: CALCIUM 11.1 MG/DL (8.5-10.1)
[2021-02-04 09:30] LABS: TOTAL PROTEIN 6.6 GM/DL (6.4-8.2)
[2021-02-04 09:32] LABS: BILIRUBIN,TOTAL 0.6 MG/DL (0.1-1.0)
[2021-02-04 09:34] LABS: CREATININE SERUM 1.21 MG/DL (0.60-1.30)
[2021-02-04 09:36] LABS: MAGNESIUM 1.9 MG/DL (1.6-2.4)
[2021-02-04] MEDS: POTASSIUM CL 10MEQ/50ML IVPB 50 ML IV SCH (09:53)
[2021-02-04] MEDS: KCL 20 MEQ TAB (K-DUR) PO SCH (09:54)
[2021-02-04] MEDS: MAGNESIUM 1 GM/100 ML IVPB 100 ML IV SCH (09:54)
--- NOTE | 2021-02-04 11:54 | Progress Note - Hospitalist ---
Subjective HPI/CC On Admission Date Seen by Provider: Feb 04, 2021 Time Seen by Provider: 10:15 Mariaa Mahoney is a 81 year old female with PMH HTN, T2DM, morbid obesity, who presented with confusion. She reports that she has had memory problems recently. She has been having trouble getting around at home. She uses a walked with keesha tance. She has not been moving much recently. She denies pain. She denies fevers. She denies nausea and vomiting. She denies abdominal pain. She was recently treated for a urinary tract infection. Subjective/Events-last exam She is sitting in her chair. She just finished eating breakfast. She has no complaints. Her daughter is visiting. Objective Exam Vital Signs Vital Signs Date Time Temp Pulse Resp B/P (MAP) Pulse Ox O2 Delivery O2 Flow Rate FiO2 02/04/21 11:27 36.7 61 16 132/25 (60) 96 Room Air Capillary Refill : Less Than 3 Seconds General Appearance: No Apparent Distress, Chronically ill, Obese Respiratory: Lungs Clear, Normal Breath Sounds, No Respiratory Distress Cardiovascular: Regular Rate, Rhythm, No Edema, No Murmur Gastrointestinal: Normal Bowel Sounds, Non Tender, Soft Extremity: Normal Inspection, Non Tender, No Pedal Edema Neurologic/Psychiatric: Alert, Depressed Affect Skin: Normal Color, Warm/Dry Results/Procedures Lab Laboratory Tests 02/04/21 09:10 Patient resulted labs reviewed. Imaging: Reviewed Imaging Report Assessment/Plan Assessment and Plan Assess & Plan/Chief Complaint HTN encephalopathy Hypertension BP improved Losartan Coreg Hydralazine Amlodipine Doxazosin IV Hydralazine as needed T2DM with hyperglycemia Increase Levemir Increase Novolog with meals Sliding scale insulin Debility PT/OT SW consulted Planning for discharge to [facility] tomorrow Hypercalcemia Normal saline PTH pending Will likely need continued workup outpatient Hypomagnesemia Monitor and replace as needed Morbid obesity Clinically significant, no acute management needs DVT prophylaxis: Lovenox Diagnosis/Problems Diagnosis/Problems (1) Hypertensive encephalopathy Status: Acute (2) Hypertension Status: Chronic Qualifiers: Hypertension type: primary hypertension Qualified Codes: I10 - Essential (primary) hypertension (3) Debility Status: Acute (4) T2DM (type 2 diabetes mellitus) Status: Chronic Qualifiers: Diabetes mellitus penitentiary insulin use: with penitentiary use (5) Morbid obesity Status: Chronic DAVID LOPEZ MD Feb 04, 2021 11:54
[2021-02-04] MEDS: ENOXAPARIN 40 MG/0.4 ML (LOVENOX) SYR SQ SCH ×2 (12:46→23:20)
[2021-02-04] MEDS: NS IV 1000 ML 1,000 ML IV SCH ×2 (12:57→20:48)
[2021-02-04] MEDS: doxAzosin 1 MG (CARDURA) TAB PO SCH (20:48)
[2021-02-05 04:09] VITALS: BP 143/65
[2021-02-05] MEDS: hydrALAZINE (APRESOLINE) 25 MG TAB PO SCH (05:49)
[2021-02-05] MEDS: inSUlin ASPART (NovoLOG) 1 UNIT/0.01 ML (CHARGE PER UNIT) SC SCH ×4 (05:49→12:27)
[2021-02-05] MEDS: MAGNESIUM 1 GM/100 ML IVPB 100 ML IV SCH (06:00)
[2021-02-05 06:59] LABS: ALBUMIN 3.1 GM/DL (3.2-4.5); BILIRUBIN,TOTAL 0.5 MG/DL (0.1-1.0); CALCIUM 10.6 MG/DL (8.5-10.1); CREATININE SERUM 1.35 MG/DL (0.60-1.30); POTASSIUM 4.5 MMOL/L (3.6-5.0)
[2021-02-05] MEDS: POTASSIUM CL 10MEQ/50ML IVPB 50 ML IV SCH (07:08)
[2021-02-05] MEDS: KCL 20 MEQ TAB (K-DUR) PO SCH (07:09)
[2021-02-05 08:00] VITALS: BP 147/65
[2021-02-05] MEDS: NS IV 1000 ML 1,000 ML IV SCH (09:38)
[2021-02-05] MEDS: amLODIPine 10 MG (NORVASC) TAB PO SCH (09:43)
[2021-02-05] MEDS: MAGNESIUM OXIDE (MAG-OX)400 MG TAB PO SCH (09:43)
[2021-02-05] MEDS: SERTRALINE 50 MG (ZOLOFT) TABLET PO SCH (09:44)
[2021-02-05] MEDS: ASPIRIN E.C. 81 MG (ECOTRIN) TAB PO SCH (09:44)
[2021-02-05] MEDS: LOSARTAN 100 MG (COZAAR) TABLET PO SCH (09:44)
[2021-02-05] MEDS: PANTOPRAZOLE 40 MG (PROTONIX) TAB PO SCH (09:44)
[2021-02-05] MEDS: LETROZOLE 2.5 MG (FEMARA) TAB PO SCH (09:44)
--- NOTE | 2021-02-05 09:55 | Physical Therapy Daily Note ---
PT Daily Note-Current Subjective Patient requires much encouragement to participate with PT. Incontinent urine with pure wick in place Mental Status Patient Orientation: Confused Attachments: IV Transfers SCALE: Activities may be completed with or without assistive devices. 0-Ctwbasexxy-pqkqcqp completes the activity by him/herself with no assistance from a helper. 5-Set-up or Clean-up Assistance-helper sets up or cleans up; patient completes activity. [place] assists only prior to or following the activity. 4-Supervision or Touching Assistance-helper provides verbal cues and/or touching/steadying and/or contact guard assistance as patient completes activity. Assistance may be provided throughout the activity or intermittently. 3-Partial/Moderate Assistance-helper does LESS THAN HALF the effort. [place] lifts, holds or supports trunk or limbs, but provides less than half the effort. 2-Substantial/Maximal Assistance-helper does MORE THAN HALF the effort. [place] lifts or holds trunk or limbs and provides more than half the effort. 7-Pazizlrfz-fvoirz does ALL the effort. Patient does none of the effort to complete the activity. Or, the assistance of 2 or more helpers is required for the patient to complete the activity. If activity was not attempted, code reason: 7-Patient Refused. 9-Not Applicable-not attempted and the patient did not perform the activity before the current illness, exacerbation or injury. 10-Not Attempted due to Environmental Limitations-(lack of equipment, weather restraints, etc.). 88-Not Attempted due to Medical Conditions or Safety Concerns. Lying to Sitting/Side of Bed(Q: 1 Sit to Stand (QC): 1 Chair/Rww-cv-Jslnf Xfer(QC): 1 patient unable to stand to FWW on this date Gait Training Does the Patient Walk?: No and Walking Goal IS indicated Exercises Seated Therapy Exercises: Ankle pumps, Long arc quads Seated Reps: 15 (AAROM) Assessment Patient very resistive with all movement on this date. Patient up in recliner with IRON CUTTER present to cleanse and change patient due to incontinence. Increase activity as tolerated by patient. PT Residential Goals Residential Goals PT Residential Goals Time Frame: Feb 21, 2021 Roll Left & Right (QC): 4 Sit to Lying (QC): 4 Lying-Sitting on Side/Bed(QC): 4 Sit to Stand (QC): 4 Chair/Pvk-wm-Hgpep Xfer(QC): 4 Toilet Transfer (QC): 4 Does the Patient Walk: Yes Walk 10 feet (QC): 4 Walk 50ft with 2 Turns (QC): 4 Walk 150 ft (QC): 4 PT Plan Treatment/Plan Treatment Plan: Continue Plan of Care Treatment Plan: Bed Mobility, Education, Functional Activity Odalys, Functional Strength, Gait, Safety, Therapeutic Exercise, Transfers Treatment Duration: Mar 14, 2021 Frequency: 6 times per week Estimated Hrs Per Day: .25 hour per day Time/GCodes Time In: 818 Time Out: 832 Total Billed Treatment Time: 14 Total Billed Treatment 1 visit FA 14 min PAUL REYES PT Feb 05, 2021 09:55
[2021-02-05] MEDS ORDERED: CARV12.53 PO (10:20)
[2021-02-05] MEDS ORDERED: DOXA1TAB2 PO (10:20)
[2021-02-05] MEDS ORDERED: HYDR-3923 PO (10:20)
[2021-02-05] MEDS ORDERED: AMLO-251 PO (10:20)
--- NOTE | 2021-02-05 10:22 | Discharge Inst-Skilled Nursing ---
Discharge Inst-Skilled NF Reconcile Patient Problems Problems Reviewed?: Yes Chief Complaint Mariaa Mahoney is a 81 year old female with PMH HTN, T2DM, morbid obesity, who presented with confusion. She reports that she has had memory problems recently. She has been having trouble getting around at home. She uses a walked with assistance. She has not been moving much recently. She denies pain. She denies fevers. She denies nausea and vomiting. She denies abdominal pain. She was recently treated for a urinary tract infection. Patient Instructions Patient Problems: AMS HTN Goal: [place] Consult/Follow Up/Orders Skilled NF Admit to: Certification (SNF) I certify that SNF services are required to be given on an inpatient basis because of the above named patient's need for [facility] care on a continuing basis for the conditions(s) for which he/she was receiving inpatient hospital services prior to his/her transfer to the SNF. [facility] Facility Order: Nursing Services, Registration Specialist-Evaluate & Treat, Physical Therapy-Evaluate & Treat Oxygen Delivery Method: Room Air Discharge Diet: No Restrictions Resuscitation Status: Do Not Resuscitate New & Resume Previous Orders New Medications: Amlodipine Besylate (Amlodipine Besylate) 10 Mg Tablet 10 MG PO DAILY for 90 Days, TAB Carvedilol (Carvedilol) 12.5 Mg Tablet 25 MG PO BID for 90 Days, TAB Doxazosin Mesylate (Doxazosin Mesylate) 1 Mg Tablet 1 MG PO HS for 90 Days, TAB Hydralazine HCl (Hydralazine HCl) 25 Mg Tablet 50 MG PO TID for 90 Days, TAB Continued Medications: Acetaminophen (Tylenol Arthritis) 650 Mg Tablet.er 650 MG PO BID, TAB Acetaminophen (Tylenol Extra Strength) 500 Mg Tablet 500 MG PO BID PRN for PAIN-MILD (1-4), TAB Aspirin (Aspirin EC) 81 Mg Tablet.dr 81 MG PO DAILY, TAB Atorvastatin Calcium (Atorvastatin Calcium) 40 Mg Tablet 40 MG PO DAILY, TAB Clotrimazole/Betamethasone Dip (Clotrimazole-Betamethasone Crm) 15 Gm Cream..g. 1 APPLIC TP TID for 7 Days, EA APPLY FOR 7 DAYS STARTING 01-25-2021 Ferrous Sulfate (Iron) 325 Mg Tablet 325 MG PO DAILY, TAB Insulin Glargine,Hum.rec.anlog (Lantus Solostar) 100 Unit/1 Ml Insuln.pen 20 UNITS SC 1999, UNITS Letrozole (Letrozole) 2.5 Mg Tablet 2.5 MG PO DAILY, TAB Levetiracetam (Levetiracetam) 750 Mg Tablet 750 MG PO BID, TAB Olmesartan Medoxomil (Olmesartan Medoxomil) 20 Mg Tablet 20 MG PO DAILY, TAB [place] 3 Polyunsat Fatty Acids (Fish Oil 1,000 mg Capsule) 1,000 Mg Cap 1000 MG PO BID, CAP Pantoprazole Sodium (Pantoprazole Sodium) 40 Mg Tablet.dr 40 MG PO DAILY, TAB Sertraline HCl (Sertraline HCl) 25 Mg Tablet 25 MG PO DAILY, TAB Sitagliptin Phosphate (Januvia) 100 Mg Tablet 100 MG PO DAILY, TAB [[employer]raworks] () 1 APPLIC TOP Q8H PRN for PAIN-BREAKTHROUGH Vit A,C & E/Lutein/Minerals (Ocuvite with Lutein Tablet) 1 Each Tablet 1 EACH PO BID, TAB Zinc (Zinc) 50 Mg Tablet 50 MG PO DAILY, TAB Discontinued Medications: Amoxicillin/Potassium Clav (Amox Tr-K Clv 875-125 mg Tab) 1 Each Tablet 875 MG PO BID, TAB FILLED 01-25-2021 #10/5 DAY SUPPLY Carvedilol (Carvedilol) 12.5 Mg Tablet 12.5 MG PO BID, TAB HOLD IF PULSE LESS THAN 55 OR SBP LESS THAN 100 Glimepiride (Glimepiride) 4 Mg Tablet 4 MG PO DAILY, TAB Chandrika Patterson Feb 05, 2021 10:21 CHANDRIKA PATTERSON DO Feb 05, 2021 10:22
[2021-02-05 11:25] LABS: BASOPHILS % (AUTO) 0 % (0-10); EOSINOPHILS # (AUTO) 0.1 10^3/uL (0.0-0.3); EOSINOPHILS % (AUTO) 1 % (0-10); HEMATOCRIT 31 % (35-52); HEMOGLOBIN 10.1 g/dL (11.5-16.0); LYMPHOCYTES % (AUTO) 15 % (12-44); MEAN CORPUSCULAR HEMOGLOBIN 31 pg (25-34); MEAN CORPUSCULAR HGB CONC 33 g/dL (32-36); MEAN CORPUSCULAR VOLUME 94 fL (80-99); MEAN PLATELET VOLUME 10.8 fL (9.0-12.2); MONOCYTES # (AUTO) 0.6 10^3/uL (0.0-1.0); MONOCYTES % (AUTO) 9 % (0-12); NEUTROPHILS # (AUTO) 4.8 10^3/uL (1.8-7.8); NEUTROPHILS % (AUTO) 74 % (42-75); PLATELET COUNT 204 10^3/uL (130-400); WHITE BLOOD COUNT 6.5 10^3/uL (4.3-11.0)
--- NOTE | 2021-02-05 11:52 | Progress Note ---
LUPE TEMPLETON 02/05/21 1152: Progress Note This 81yoCF presented to the emergency room on 01/30/21 arriving from [place] where she has been noted to have a decline in her functional status over the past few weeks. Her daughter provided some of the history and states she has not observed her mother walk in about the past 2 to 3 days. Patient describes progressive weakness also. Cognition also seems to be dulled and she is somewhat disoriented which is not typical according to staff and the patient's daughter. Dr. Odom also provided some of the history and commented that she normally is able to ambulate into his clinic with a walker. Last week she could not get out of the vehicle and he performed his visit in the backseat of her car. She is presently being treated for UTI with Augmentin. Daughter also later recalls that patient had a fall a few days ago. Dr. Odom had obtained outpatient x-rays which were reviewed and showed no acute fractures or dislocations. Mariaa complains of some lower back pain and pain in the "tailbone" area. Blood sugars have been elevated recently. Pt also has medical hx significant for HTN, T2DM, morbid obesity. Blood pressure was found to be 203/79 contributing to work up for HTN encephalopathy and glycemic control with 308 glucose at presentation. Radiography indicates that encephalomalacia has developed in left frontal lobe at site of previously identified ischemia. Otherwise, no acute abnormality or new intracranial lesion is identified. Patient was admitted to medical floor for medical management, supportive care, PT &OT and has gradually improved over several days. DC planned to [facility] today (02/05/2021) where the pt will continue to recieve supportive care. CHANDRIKA LOPEZ DO 02/06/21 0540: Supervisory-Addendum Brief Verification & Attestation Participated in pt care: history, MDM, physical Personally performed: exam, history, MDM, supervision of care Care discussed with: Medical Student Procedures: n/a Results interpretation: Verified all documentation Verification and Attestation of Medical Student E/M Service A medical student performed and documented this service in my presence. I reviewed and verified all information documented by the medical student and made modifications to such information, when appropriate. I personally performed the physical exam and medical decision making. Chandrika Lopez, Feb 06, 2021,05:39 LUPE TEMPLETON Feb 05, 2021 11:52 CHANDRIKA LOPEZ DO Feb 06, 2021 05:40
[2021-02-05 12:00] VITALS: BP 125/58
[2021-02-05] MEDS: ENOXAPARIN 40 MG/0.4 ML (LOVENOX) SYR SQ SCH (12:26)
--- NOTE | 2021-02-05 14:14 | Occupational Ther Daily Note ---
OT Current Status-Daily Note Subjective Pt dozing in chair, difficult to wake. Pt woke and answered questions then fell back asleep. Pt to possible discharge to [place] today. Mental Status/Objective Patient Orientation: Person, Confused Attachments: IV ADL-Treatment Therapy Code Descriptions/Definitions Functional [place] Measure: 0=Not Assessed/NA 4=Minimal Assistance 1=Total Assistance 5=Supervision or Setup 2=Maximal Assistance 6=Modified [place] 3=Moderate Assistance 7=Complete IndependenceSCALE: Activities may be completed with or without assistive devices. 1-Dzbkpxqwii-rborrkb completes the activity by him/herself with no assistance from a helper. 5-Set-up or Clean-up Assistance-helper sets up or cleans up; patient completes activity. [place] assists only prior to or following the activity. 4-Supervision or Touching Assistance-helper provides verbal cues and/or touching/steadying and/or contact guard assistance as patient completes activity. Assistance may be provided throughout the activity or intermittently. 3-Partial/Moderate Assistance-helper does LESS THAN HALF the effort. [place] lifts, holds or supports trunk or limbs, but provides less than half the effort. 2-Substantial/Maximal Assistance-helper does MORE THAN HALF the effort. [place] lifts or holds trunk or limbs and provides more than half the effort. 8-Qfnqvurpj-jbroch does ALL the effort. Patient does none of the effort to complete the activity. Or, the assistance of 2 or more helpers is required for the patient to complete the activity. If activity was not attempted, code reason: 7-Patient Refused. 9-Not Applicable-not attempted and the patient did not perform the activity before the current illness, exacerbation or injury. 10-Not Attempted due to Environmental Limitations-(lack of equipment, weather restraints, etc.). 88-Not Attempted due to Medical Conditions or Safety Concerns. Other Treatment Attempted to have pt complete simple B UE ROM against gravity, pt initiated movement though no follow through due to falling back to sleep. Positioned pt in chair, pt able to use B LE to push self up in chair with back of chair reclined. After session, pt sitting in recliner with call light/phone in reach. All needs met in room. OT Implementation Coordinator Goals Retirement Goals Time Frame: Feb 09, 2021 Eating (QC): 6 Oral Hygiene (QC): 6 Toileting Hygiene (QC): 4 Shower/Bathe Self (QC): 3 Upper Body Dressing (QC): 4 Lower Body Dressing (QC): 3 On/Off Footwear (QC): 3 Additional Goals: 1-Demonstrate ADL Tasks, 2-Verbalize Understanding, 3- ImproveStrength/Odalys 1=Demonstrate adherence to instructed precautions during ADL tasks. 2=Patient will verbalize/demonstrate understanding of assistive devices/modifications for ADL. 3=Patient will improve strength/tolerance for activity to enable patient to perform ADL's. OT Education/Plan Problem List/Assessment Assessment: Decreased Activ Tolerance, Decreased Safety Aware, Decreased UE Strength, Impaired Self-Care Skills Discharge Recommendations Plan/Recommendations: Continue POC Treatment Plan/Plan of Care Patient would benefit from OT for education, treatment and training to promote independence in ADL's, mobility, safety and/or upper extremity function for ADL's. Plan of Care: ADL Retraining, Functional Mobility, UE Funct Exercise/Act Treatment Duration: Feb 09, 2021 Frequency: 5 times per week Estimated Hrs Per Day: .25 hour per day Rehab Potential: Fair Time/GCodes Start Time: 14:00 Stop Time: 14:10 Total Time Billed (hr/min): 10 Billed Treatment Time 1 visit-FA 1 (10 min) ANAI PACK Feb 05, 2021 14:14
== END 2021-02-05 16:10 | DRG 78 ==
LOC: EDUNIT# 10:26 → ER 10:27 → 4TH 14:56
PROVIDERS: ADMIT Internal Medicine; ATTEND Internal Medicine
DX: I67.4 Hypertensive encephalopathy (principal); Z68.41 Body mass index [BMI] 40.0-44.9, adult; I10 Essential (primary) hypertension; R53.81 Other malaise; E66.01 Morbid (severe) obesity due to excess calories; E78.00 Pure hypercholesterolemia, unspecified; Z86.73 Personal history of transient ischemic attack (TIA), and cerebral infarction without residual deficits; M19.90 Unspecified osteoarthritis, unspecified site; G89.29 Other chronic pain; M54.9 Dorsalgia, unspecified; F32.A Depression, unspecified; E83.42 Hypomagnesemia; E11.65 Type 2 diabetes mellitus with hyperglycemia; E83.52 Hypercalcemia
CPT/HCPCS: 36415; 36600; 51701; 70450; 72131; 72192; 80048; 80053; 81000; 82805; 82947; 83735; 83970; 84443; 85025; 86141; 96361; 96365

== ENCOUNTER → 2021-03-26 | Outpatient (CLI) | payer MEDICARE, BC ==
[~2021-03-26] MED LIST changes: +AMLO-251 PO; +AMOX1TAB12 PO; +CLOT15CR6 TP; +DOXA1TAB2 PO; +HYDR-3923 PO; +THERAWORKS TOP; +VIT1TABL26 PO
[2021-03-26 21:44] LABS: BILIRUBIN,URINE NEGATIVE (NEGATIVE); CLARITY,URINE CLOUDY; COLOR,URINE YELLOW; GLUCOSE, URINE (UA) 1+ (NEGATIVE); KETONES,URINE NEGATIVE (NEGATIVE); LEUKOCYTE ESTERASE ,URINE 3+ (NEGATIVE); NITRITE,URINE NEGATIVE (NEGATIVE); PH,URINE 5.5 (5-9); PROTEIN,URINE 1+ (NEGATIVE)
[2021-03-26 22:03] LABS: BACTERIA,URINE LARGE /HPF; WBC,URINE TNTC /HPF
== END ==
LOC: LAB 21:23
PROVIDERS: ATTEND Family Medicine
DX: Z01.89 Encounter for other specified special examinations (principal)
CPT/HCPCS: 81000; 87077; 87088; 87186

== ENCOUNTER → 2021-04-08 | Outpatient (CLI) | payer MEDICARE, BC ==
[2021-04-08 13:37] LABS: BILIRUBIN,URINE NEGATIVE (NEGATIVE); CLARITY,URINE CLOUDY; COLOR,URINE YELLOW; GLUCOSE, URINE (UA) NEGATIVE (NEGATIVE); KETONES,URINE NEGATIVE (NEGATIVE); LEUKOCYTE ESTERASE ,URINE 3+ (NEGATIVE); NITRITE,URINE NEGATIVE (NEGATIVE); PROTEIN,URINE NEGATIVE (NEGATIVE)
[2021-04-08 14:03] LABS: BACTERIA,URINE FEW /HPF; SQUAMOUS EPITHELIAL CELL,UR 0-2 /HPF; WBC,URINE 50-100 /HPF; YEAST,URINE LARGE /HPF
== END ==
LOC: LABNPT 13:23
PROVIDERS: ATTEND Family Medicine
DX: E11.29 Type 2 diabetes mellitus with other diabetic kidney complication (principal); R41.82 Altered mental status, unspecified
CPT/HCPCS: 81000; 87088

== ENCOUNTER → 2021-07-17 | Outpatient (CLI) | payer MEDICARE, BC ==
--- NOTE | 2021-07-17 12:16 | Diagnostic Imaging Report ---
INDICATION: Postmenopausal state. COMPARISON: 02/02/2019 FINDINGS: AP Spine L1-L4: [BMD (g/cm2): 1.259] [T-Score: 0.5] [Z-Score: 1.2] [BMD Previous: 1.269] [BMD % Change: -0.8] LT Hip Neck: [BMD (g/cm2): 1.003] [T-Score: -0.3] [Z-Score: 1.2] LT Hip Total: [BMD (g/cm2):1.028] [T-Score:0.2] [Z-Score: 1.4] [BMD Previous: 1.240] [BMD % Change: -17.1] RT Hip Neck: [BMD (g/cm2):0.956] [T-Score:-0.6] [Z-Score:0.8] RT Hip Total: [BMD (g/cm2):0.980] [T-score:-0.2] [Z-Score:1.0] [BMD Previous:1.092] [BMD % Change:-10.3] *Indicates significant change from prior examination based on 95% confidence level. World Health Organization criteria for BMD interpretation classify patients as Normal (T-score at or above -1.0), Osteopenic (T-score between -1.0 and -2.5) or Osteoporotic (T-score at or below -2.5). LIMITATIONS AND MODIFICATION: None. IMPRESSION: 1. Normal bone mineral density. 2. No significant change in bone mineral density since prior examination. 3. See below National Osteoporosis Foundation guidelines on when to potentially initiate pharmacologic therapy. Based on the National Osteoporosis Foundation Guidelines, pharmacologic treatment should be initiated in any of the following, unless clinical conditions suggest otherwise: * Any patient with prior fragility fracture of the hip or vertebrae. A spine fracture indicates 5X risk for subsequent spine fracture and 2X risk for subsequent hip fracture. * Osteoporosis (T-score <-2.5). * Postmenopausal women and men age 50 and older with low bone mass/osteopenia (T-score between -1.0 and -2.5) by DXA and 10-year major osteoporotic fracture greater than 20% or a 10-year probability of hip fracture greater than 3%. These fracture risks are supplied above in the FRAX score, if applicable. * Clinician judgement and/or patient preferences may indicate treatment for people with 10-year fracture probabilities above or below these levels. Dictated by: Dictated on workstation # [id number]
--- NOTE | 2021-07-17 13:55 | Diagnostic Imaging Report ---
Indication: Routine screening. Comparison is made with prior mammogram from 09/24/2019 and 02/12/2018. 2-D and 3-D bilateral screening mammography was performed with CAD. CAD is utilized. The current study was also evaluated with a Computer Aided Detection (CAD) system. Both breasts are heterogeneously dense, limiting the sensitivity of mammography. There are post-therapeutic changes in the left breast. No discrete mass is identified. There are benign calcifications scattered throughout both breasts. No malignant-appearing microcalcifications are seen. Axillae are unremarkable. IMPRESSION: BI-RADS Category 2 No mammographic features suspicious for malignancy are identified. ACR BI-RADS Category 2: Benign findings. Result letter will be mailed to the patient. Note: At least 10% of breast cancer is not imaged by mammography. Dictated by: Dictated on workstation # [id number]
== END ==
LOC: RAD 09:45
PROVIDERS: ATTEND Internal Medicine Hematology & Oncology
DX: Z12.31 Encounter for screening mammogram for malignant neoplasm of breast (principal); C50.412 Malignant neoplasm of upper-outer quadrant of left female breast; Z78.0 Asymptomatic menopausal state; Z98.811 Dental restoration status
CPT/HCPCS: 77063; 77067; 77080

== ENCOUNTER → 2022-06-21 | Outpatient (CLI) | payer MEDICARE, BC ==
[~2022-06-21] MED LIST changes: -OLME20TA21 PO; +OLME20TA75 PO; -OLME40TA12 PO; +OLME40TA70 PO
== END ==
LOC: LABNPT 20:15
PROVIDERS: ATTEND Family Medicine
DX: E11.9 Type 2 diabetes mellitus without complications (principal); Z91.81 History of falling
CPT/HCPCS: 82274

== ENCOUNTER 2022-07-24 05:51 | Outpatient (CLI) | payer MEDICARE, BC ==
[~2022-07-24] VITALS: Ht 160 cm; Wt 104.5 kg
[2022-07-30] MEDS ORDERED: CALC-794 PO (13:49)
[2022-07-30] MEDS ORDERED: CHOL20003 PO (13:49)
[2022-07-30] MEDS ORDERED: TRM50T PO (13:49)
[2022-07-30] MEDS ORDERED: AMLO-250 PO (13:49)
[2022-07-30] MEDS ORDERED: HYDR-3923 PO (13:49)
[2022-07-30] MEDS ORDERED: ASCO500C18 PO (13:49)
[2022-07-30] MEDS ORDERED: INSU100C3 SQ (13:49)
[2022-07-30] MEDS ORDERED: INSU100I34 SQ (13:49)
[2022-07-30] MEDS ORDERED: LACTATED RINGERS 1,000 ML IV STA (13:50)
[2022-07-30] MEDS ORDERED: HURRICAINE EXT TUBE (BENZOCAINE) XX PRN (14:00)
== END 2022-07-30 14:52 | disposition home or self-care (01) ==
LOC: PREOP 05:51
PROVIDERS: ATTEND Surgery
DX: Z01.818 Encounter for other preprocedural examination (principal)

== ENCOUNTER 2022-08-06 10:03 | Day surgery (SDC) | payer MEDICARE, BC ==
[~2022-08-06] VITALS: Ht 160 cm; Wt 104.5 kg
[~2022-08-06 10:03] MED LIST changes: +ASCO500C18 PO; +CALC-794 PO; +INSU100C3 SQ; +INSU100I34 SQ
[2022-08-06] MEDS ORDERED: LACTATED RINGERS 1,000 ML IV STA (11:13)
[2022-08-06] MEDS ORDERED: HURRICAINE EXT TUBE (BENZOCAINE) XX PRN (11:15)
[2022-08-06 11:34] VITALS: BP 147/68
[2022-08-06] MEDS ORDERED: PROPOFOL INJECTION 50 ML IV ONE ×2 (12:34→13:02)
[2022-08-06] MEDS ORDERED: ATROPINE INJ 0.4 MG/ML SDV ONE (12:49)
[2022-08-06 13:20] VITALS: BP 101/45
[2022-08-06 13:25] VITALS: BP 150/64
--- NOTE | 2022-08-06 13:26 | Progress Note-Post Operative ---
Post-Operative Progess Note Surgeon (s)/Cotton Inspector (s) Surgeon DIXIE AVALOS DO Cotton Inspector: na Pre-Operative Diagnosis Hx of colon cancer, (+) occult blood in stool Post-Operative Diagnosis Colon polyps, gastric polyp Procedure & Operative Findings Date of Procedure 08/06/22 Procedure Performed/Findings EGD with snare polypectomy and placement resolution clip of antral polyp, Colonoscopy with snare polypectomy x6 Anesthesia Type per SENIOR NET C DEVELOPER Estimated Blood Loss Estimated blood loss (mL): none Specimens/Packing Specimens Removed Transverse colon x1, descending colon x3, sigmoid colon x1, rectum x1, gastric antrum x1 DIXIE AVALOS DO August 06, 2022 13:26
[2022-08-06 13:30] VITALS: BP 163/94
--- NOTE | 2022-08-06 13:32 | Discharge Inst-Simple/Standard ---
Discharge Inst-Standard Patient Instructions/Follow Up Plan of Care/Instructions/FU: follow up with [place] in two weeks Activity as Tolerated: Yes Discharge Diet: Regular Diet DIXIE AVALOS DO August 06, 2022 13:32
[2022-08-06 14:30] VITALS: BP 163/94
--- NOTE | 2022-08-06 14:50 | Anesthesia-General Post-Op ---
MAC Patient Condition Mental Status/LOC: Same as Preop Cardiovascular: Satisfactory Nausea/Vomiting: Absent Respiratory: Satisfactory Pain: Controlled Complications: Absent Post Op Complications Complications None Follow Up Care/Instructions Patient Instructions None needed. Anesthesiology Discharge Order Discharge Order Patient is doing well, no complaints, stable vital signs, no apparent adverse anesthesia problems. No complications reported per nursing. LUDY HEBERT CRNA August 06, 2022 14:50
--- NOTE | 2022-08-06 21:14 | OPERATIVE REPORT ---
DATE OF SERVICE: 08/06/2022 PREOPERATIVE DIAGNOSES: History of colon cancer, blood in stool. POSTOPERATIVE DIAGNOSES: Colon polyps, gastric polyp. PROCEDURE: EGD with snare polypectomy and placement of Resolution clip of antral polyp, colonoscopy with snare polypectomy x6. SURGEON: Dixie Hartley DO ANESTHESIA: Per MEDICAL PAYMENT POSTER. ESTIMATED BLOOD LOSS: None. COMPLICATIONS: None. INDICATIONS: The patient is an 82-year-old female who has a history of colon cancer. She also has occult positive stool. She understands risks and benefits of procedure and wished to proceed. Consent was signed in chart. DESCRIPTION OF PROCEDURE: The patient was taken to endoscopy suite, placed in left lateral recumbent position. Timeout was performed. Scope was inserted in the mouth, down the esophagus, stomach, into the duodenum without difficulty. No polyps, masses or ulcerations in the duodenum. Scope was slowly retracted back. stomach were further insufflated. Larger polyp in the antrum was present. Snare polypectomy was performed. Slight bleeding from the area of slow Resolution clip was placed. The specimen was obtained. Scope was retroflexed noting no other pathology. Scope was returned to its normal position, slowly withdrawn until distal esophagus. No polyps, masses or ulcerations. Scope was slowly retracted back until completely removed. The patient then had digital rectal exam performed. No palpable polyps, masses or ulcerations. Scope was inserted in the rectum all the way to the ileocolonic anastomosis. Scope was then slowly retracted back. In the transverse colon, polyp was present, which snare polypectomy was performed. Scope was then continuously retracted back into the descending colon, 3 polyps were present, which snare polypectomy was performed. Scope was then continuously retracted back into the sigmoid colon where another polyp was present, which snare polypectomy was performed. Scope was then continuously retracted back and a small rectal polyp was present, which snare polypectomy was performed. Scope was retroflexed noting no other pathology. Scope was returned to its normal position, slowly withdrawn until completely removed. The patient tolerated the procedure well, no complications, taken to recovery room in stable condition. RECOMMENDATIONS: The patient will need repeat colonoscopy on as needed basis. She will follow up in the office in 2 weeks. Job ID: [id number] DocumentID: [id number] Dictated Date: 08/06/2022 13:27:54 Product Specialist Date: 08/06/2022 21:12:00 Dictated By: DIXIE HARTLEY DO
== END 2022-08-06 14:30 | disposition home or self-care (01) ==
LOC: ENDO 10:03
PROVIDERS: ATTEND Surgery
DX: D12.3 Benign neoplasm of transverse colon (principal); D12.4 Benign neoplasm of descending colon; R19.5 Other fecal abnormalities; K31.7 Polyp of stomach and duodenum; K62.1 Rectal polyp; K63.5 Polyp of colon; E66.01 Morbid (severe) obesity due to excess calories; Z85.038 Personal history of other malignant neoplasm of large intestine; Z98.0 Intestinal bypass and anastomosis status; Z68.41 Body mass index [BMI] 40.0-44.9, adult

== ENCOUNTER 2022-08-17 07:23 | Inpatient (IN) | payer MEDICARE, BC ==
[~2022-08-17] VITALS: Ht 167 cm; Wt 109.1 kg
[~2022-08-17 07:23] MED LIST changes: -LOSA100T57 PO; +LOSA100T58 PO
[2022-08-17] MEDS ORDERED: RT-ALBUTEROL HFA 8.5 GM INHALER IH STA (07:41)
[2022-08-17 07:42] LABS: BASOPHILS % (AUTO) 1 % (0-10); EOSINOPHILS # (AUTO) 0.2 10^3/uL (0.0-0.3); EOSINOPHILS % (AUTO) 3 % (0-10); HEMATOCRIT 29 % (35-52); HEMOGLOBIN 9.6 g/dL (11.5-16.0); LYMPHOCYTES # (AUTO) 0.8 10^3/uL (1.0-4.0); LYMPHOCYTES % (AUTO) 13 % (12-44); MEAN CORPUSCULAR HEMOGLOBIN 31 pg (25-34); MEAN CORPUSCULAR HGB CONC 33 g/dL (32-36); MEAN CORPUSCULAR VOLUME 95 fL (80-99); MEAN PLATELET VOLUME 9.8 fL (9.0-12.2); MONOCYTES # (AUTO) 0.6 10^3/uL (0.0-1.0); MONOCYTES % (AUTO) 9 % (0-12); NEUTROPHILS # (AUTO) 4.9 10^3/uL (1.8-7.8); NEUTROPHILS % (AUTO) 75 % (42-75); PLATELET COUNT 194 10^3/uL (130-400); WHITE BLOOD COUNT 6.5 10^3/uL (4.3-11.0)
[2022-08-17 07:52] LABS: BILIRUBIN,URINE NEGATIVE (NEGATIVE); CLARITY,URINE CLEAR; COLOR,URINE YELLOW; GLUCOSE, URINE (UA) NEGATIVE (NEGATIVE); KETONES,URINE NEGATIVE (NEGATIVE); LEUKOCYTE ESTERASE ,URINE NEGATIVE (NEGATIVE); NITRITE,URINE NEGATIVE (NEGATIVE); PROTEIN,URINE 3+ (NEGATIVE)
--- NOTE | 2022-08-17 07:52 | ED General ---
General Chief Complaint: Fever-Adult/Adol Stated Complaint: ALTERED MENTAL STATUS Nursing Triage Note: PT ARRIVED PER EMS PT HAS FEVERS AND ALTERED MENTAL STATUS. PT SAT 87% ON RM AIR AT NH, PT UP TO 93% ON 3L. PT HAS HAD ALTERED MENTAL STATUS. PT HAS COUGH. PT HAS IV NS IN R HAND #20 BY EMS. Source of Information: Patient, EMS, Residential Records Exam Limitations: No Limitations History of Present Illness Date Seen by Provider: Aug 17, 2022 Time Seen by Provider: 07:30 Initial Comments This 82-year-old woman presents to the emergency room from [facility] via EMS with concerns about fever, wet cough, diaphoresis, and decreased alertness over the past 2 days. Temperature for EMS was 100.2. She is requiring 3 L nasal cannula to keep her in the mid 90s on oxygen saturations. She does not normally require supplemental oxygen. Patient is alert to person, place, and age, but seems to be a fairly poor historian. Her responses to questions are delayed and sluggish. She denies any pain but has tenderness to the lower extremities when palpated. She does seem to have some lower extremity edema, although the chronicity of the edema is not known. It is not known if she has received her morning medications or any Tylenol. She reports some nausea. She is hypertensive on arrival and has rhonchi consistent with upper airway mucus as well as wheezes throughout on exam. She is a patient of Dr. SANDHU and has a DNR order. Allergies and Home Medications Allergies Coded Allergies: No Known Drug Allergies (Unverified , 10/29/18) Patient Home Medication List Home Medication List Reviewed: Yes Acetaminophen (Tylenol Arthritis) 650 Mg Tablet.er, 650 MG PO BID, (Reported) Entered as Reported by: SIA GARCIA on 10/26/19 1547 Last Action: Held Acetaminophen (Tylenol Extra Strength) 500 Mg Tablet, 500 MG PO BID PRN for PAIN-MILD (1-4), (Reported) Entered as Reported by: SIA GARCIA on 10/23/20 1120 Last Action: Held Amlodipine Besylate (Amlodipine Besylate) 5 Mg Tablet, 5 MG PO DAILY, (Reported) Entered as Reported by: AMARIS JUNG on 07/30/22 1349 Last Action: Continued Ascorbic Acid (Vitamin C) 500 Mg Capsule.er, 500 MG PO Q12H, (Reported) Entered as Reported by: AMARIS JUNG on 07/30/221348 Last Action: Held Aspirin (Aspirin EC) 81 Mg Tablet.dr, 81 MG PO DAILY, (Reported) Entered as Reported by: SIA GARCIA on 10/26/191545 Last Action: Continued Atorvastatin Calcium (Atorvastatin Calcium) 40 Mg Tablet, 40 MG PO DAILY, (Reported) Entered as Reported by: SIA GARCIA on 10/26/191545 Last Action: Continued Calcium Carbonate/Vitamin D3 (Calcium 600 + Vit D3 400 Tab) 600 Mg Calcium-10 Mcg (400 Unit) Tablet, 1 EACH PO DAILY, (Reported) Entered as Reported by: SIA GARCIA on 08/19/22947 Last Action: Held Cholecalciferol (Vitamin D3) (Vitamin D3) 50 Mcg (2000 Unit) Capsule, 50 MCG PO DAILY, (Reported) Entered as Reported by: AMARIS JUNG on 07/30/221348 Last Action: Held Dextromethorphan Polistirex (Delsym) 30 Mg/5 Ml Guera.er.12h, 10 ML PO Q12H PRN for COUGH, (Reported) Entered as Reported by: SIA GARCIA on 08/19/22947 Last Action: Held Docusate Sodium (Docusate Sodium) 100 Mg Tablet, 100 MG PO DAILY, (Reported) Entered as Reported by: SIA GARCIA on 08/19/22947 Last Action: Held Doxazosin Mesylate (Doxazosin Mesylate) 1 Mg Tablet, 1 MG PO DAILY, (Reported) Entered as Reported by: SIA GARCIA on 08/19/22947 Last Action: Held Ferrous Sulfate (Iron) 325 Mg (65 Mg Iron) Tablet, 325 MG PO 1200, (Reported) Entered as Reported by: JUD DUMONT on 10/29/18 0859 Last Action: Held Glucagon,Human Recombinant (Glucagon Emergency Kit) 1 Mg Soln, 1 MG IJ UD PRN for HYPOGLYCEMIA, (Reported) Entered as Reported by: SIA GARCIA on 08/19/22947 Last Action: Held Hydralazine HCl (Hydralazine HCl) 25 Mg Tablet, 25 MG PO TID, (Reported) Entered as Reported by: AMARIS JUNG on 07/30/221348 Last Action: Held Insulin Aspart (Insulin Aspart) 100 Unit/Ml Vial, UNIT SQ BID WITH MEALS, (Reported) Entered as Reported by: SIA GARCIA on 08/19/22947 Last Action: Held Insulin Glargine,Hum.rec.anlog (Basaglar Kwikpen U-100) 100 Unit/Ml (3 Ml) Insu ln.pen, 25 UNIT SQ HS, (Reported) Entered as Reported by: AMARIS JUNG on 07/30/221348 Last Action: Held Letrozole (Letrozole) 2.5 Mg Tablet, 2.5 MG PO DAILY, (Reported) Entered as Reported by: BENNIE ELLIOTT on 05/04/191543 Last Action: Continued Levetiracetam (Levetiracetam) 750 Mg Tablet, 750 MG PO BID, (Reported) Entered as Reported by: SIA GARCIA on 10/26/191545 Last Action: Held Olmesartan Medoxomil (Olmesartan Medoxomil) 20 Mg Tablet, 20 MG PO DAILY, (Reported) Entered as Reported by: SIA GARCIA on 10/23/20 1120 Last Action: Held [place]-3/Dha/Epa/Fish Oil (Fish Oil 1,000 mg Softgel) 1,000 Mg (120 Mg-180 Mg) Capsule, 1,000 MG PO BID, (Reported) Entered as Reported by: SIA GARCIA on 08/19/22947 Last Action: Held Pantoprazole Sodium (Pantoprazole Sodium) 40 Mg Tablet.dr, 40 MG PO DAILY, (Reported) Entered as Reported by: SIA GARCIA on 10/26/191545 Last Action: Continued Polyethylene Glycol 3350 (Miralax) 17 Gram Powd.pack, 17 GM PO DAILY, (Reported) Entered as Reported by: SIA GARCIA on 08/19/22947 Last Action: Held Sertraline HCl (Sertraline HCl) 150 Mg Capsule, 150 MG PO DAILY, (Reported) Entered as Reported by: SIA GARCIA on 08/19/22947 Last Action: Held Sitagliptin Phosphate (Januvia) 100 Mg Tablet, 100 MG PO DAILY, (Reported) Entered as Reported by: JUD DUMONT on 01/05/16 1338 Last Action: Held Tramadol HCl (Tramadol HCl) 50 Mg Tablet, 50 MG PO DAILY, (Reported) Entered as Reported by: SIA GARCIA on 08/19/22 0948 Last Action: Held Vit A,C & E/Lutein/Minerals (Ocuvite with Lutein Tablet) 1 Each Tablet, 1 EACH PO BID, (Reported) Entered as Reported by: SIA GARCIA on 01/31/21 0835 Last Action: Held Zinc Amino Acid Chelate (Zinc) 50 Mg Tablet, 50 MG PO DAILY, (Reported) Entered as Reported by: SIA GARCIA on 08/19/22 0948 Last Action: Held Discontinued Medications Calcium Carb & Citrate/Vit D3 (Calcium + D3 ER Tablet) 600MG-12.5 Tablet.er, 1 EACH PO DAILY, (Reported) Discontinued Reason: Prescription changed Entered as Reported by: AMARIS JUNG on 07/30/22 1349 Doxazosin Mesylate (Doxazosin Mesylate) 1 Mg Tablet, 1 MG PO HS Discontinued Reason: No Longer Taking Prescribed by: VANESSA LOPEZ on 02/05/21 1020 Last Action: Discontinued Insulin Aspart (Novolog) 100 Unit/Ml Cartridge, 3 UNITS SQ AC PRN for HY PERGLYCEMIA, (Reported) Discontinued Reason: Prescription changed Entered as Reported by: AMARIS JUNG on 07/30/22 1349 [place] 3 Polyunsat Fatty Acids (Fish Oil 1,000 mg Capsule) 1,000 Mg Cap, 1,000 MG PO BID, (Reported) Discontinued Reason: Prescription changed Entered as Reported by: JUD DUMONT on 10/29/18 0859 Sertraline HCl (Sertraline HCl) 25 Mg Tablet, 25 MG PO DAILY, (Reported) Discontinued Reason: No Longer Taking Entered as Reported by: SIA GARCIA on 10/26/19 1546 Last Action: Discontinued Tramadol HCl (Tramadol HCl) 50 Mg Tablet, 50 MG PO Q4H PRN for PAIN, (Reported) Discontinued Reason: Duplicate Order Entered as Reported by: AMARIS JUNG on 07/30/22 1349 Last Action: Discontinued Zinc (Zinc) 50 Mg Tablet, 50 MG PO DAILY, (Reported) Discontinued Reason: Prescription changed Entered as Reported by: SIA GARCIA on 10/23/20 1120 Review of Systems Review of Systems Constitutional: see HPI EENTM: see HPI Respiratory: see HPI Cardiovascular: see HPI Gastrointestinal: see HPI Genitourinary: no symptoms reported : No Musculoskeletal: no symptoms reported Skin: no symptoms reported Psychiatric/Neurological: See HPI Hematologic/Lymphatic: No Symptoms Reported Immunological/Allergic: no symptoms reported Past Xfoobwu-Hswvcs-Wyjkvo Hx Patient Social History Tobacco Use?: No Substance use?: No Alcohol Use?: No Pt feels they are or have been: No Immunizations Up To Date Tetanus Booster (TDap): Unknown PED Vaccines UTD: Yes First/Initial COVID19 Vaccinat: YES Second COVID19 Vaccination Darío: YES Third COVID19 Vaccination Date: YES Seasonal Allergies Seasonal Allergies: Yes (MILD) Past Medical History Surgery/Hospitalization HX: DIABETE, CHRONIC KIDNEY DISEASE. 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 History: Tubal Ligation Sexually Transmitted Disease: No HIV/AIDS: No Genitourinary: Yes Bladder Infection, Renal Failure Gastrointestinal: Yes (COLON CANCER) Musculoskeletal: Yes Degenerate Disk Disease, Arthritis, Chronic Back Pain Endocrine: Yes Diabetes, Non-Insulin dep HEENT: Yes (GLASSES, DENTURES) Loss of Vision: Denies Hearing Impairment: Denies Cancer: Yes Breast, Colon Did You Recieve Any Treatments: Yes What Type of Treatment Did You: Surgical Intervention Psychosocial: Yes (SITUATIONAL ) Depression Integumentary: No Blood Disorders: No Adverse Reaction/Blood Tranf: No (N/A) Family Medical History Alcoholism 19 FATHER Completed stroke 19 MOTHER Dementia 19 MOTHER Diabetes mellitus 19 MOTHER G8 BROTHER FH: breast cancer G8 SISTER FH: uterine cancer 19 MOTHER Hypertension G8 BROTHER Respiratory disorder 19 FATHER Physical Exam-Suspected Sepsis Physical Exam Vital Signs Vital Signs - First Documented 08/17/22 08/17/22 07:25 08:36 Temp 37.9 Pulse 83 Resp 16 B/P (MAP) 168/73 (104) FiO2 100 Capillary Refill : Less Than 3 Seconds Blood Pressure Mean: 104 Height, Weight, BMI Height: 5'3.00" Weight: 221lbs. 3.0oz. 100.116001wl; 29.00 BMI Method: General Appearance: No Apparent Distress, WD/WN, Obese, Other (Ill-appearing, mildly lethargic) HEENT: PERRL/EOMI, Normal ENT Inspection, Other (Moist mucous membranes) Neck: Normal Inspection; No JVD Respiratory: No Accessory Muscle Use, No Respiratory Distress, Crackles (Faint in the bases), Rhonci, Wheezing, Other (Poor cough) Cardiovascular: Regular Rate, Rhythm, No Murmur, Other (Bilateral lower extremity edema) Gastrointestinal: Non Tender, Soft Extremity: Swelling, Other (Bilateral leg tenderness on palpation) Neurologic/Psychiatric: Alert, Oriented x3 (But cognition dulled) Skin: normal color, other (Mildly diaphoretic) Focused Exam Lactate Level Lactic Acid Level Progress/Results/Core Measures Suspected Sepsis SIRS Temperature: Pulse: 83 Respiratory Rate: 16 Laboratory Tests 08/20/22 03:30: White Blood Count 9.0 08/21/22 04:25: White Blood Count 10.9 08/22/22 05:06: White Blood Count 9.0 Blood Pressure 168 /73 Mean: 104 Laboratory Tests 08/20/22 03:30: Creatinine 2.09H, Platelet Count 178 08/21/22 04:25: Creatinine 1.68H, Platelet Count 204 08/22/22 05:06: Creatinine 1.39H, Platelet Count 224 Results/Orders Lab Results Laboratory Tests Test 08/20/22 10:55 08/20/22 16:55 08/20/22 20:21 08/21/22 04:25 Range/Units Glucometer 144 H 188 H 193 H 70-110 MG/DL White Blood Count 10.9 4.3-11.0 10^3/uL Red Blood Count 2.39 L 3.80-5.11 10^6/uL Hemoglobin 7.3 L 11.5-16.0 g/dL Hematocrit 23 L 35-52 % Mean Corpuscular Volume 96 80-99 fL Mean Corpuscular Hemoglobin 31 25-34 pg Mean Corpuscular Hemoglobin Concent 32 32-36 g/dL Red Cell Distribution Width 12.6 10.0-14.5 % Platelet Count 204 130-400 10^3/uL Mean Platelet Volume 10.2 9.0-12.2 fL Sodium Level 142 135-145 MMOL/L Potassium Level 4.3 3.6-5.0 MMOL/L Chloride Level 113 H 98-107 MMOL/L Carbon Dioxide Level 22 21-32 MMOL/L Anion Gap 7 5-14 MMOL/L Blood Urea Nitrogen 41 H 7-18 MG/DL Creatinine 1.68 H 0.60-1.30 MG/DL Estimat Glomerular Filtration Rate 31 BUN/Creatinine Ratio 24 Glucose Level 139 H 70-105 MG/DL Calcium Level 9.4 8.5-10.1 MG/DL Phosphorus Level 1.8 L 2.3-4.7 MG/DL Magnesium Level 2.0 1.6-2.4 MG/DL Test 08/21/22 08:20 08/21/22 10:46 08/21/22 16:28 08/21/22 20:04 Range/Units Iron Level 68 33-167 ug/dL Total Iron Binding Capacity 144 L 237-330 ug/dL Unsaturated Iron Binding Capacity 76 25-500 ug/dL Transferrin % Saturation 47 17-57 % Ferritin 441.1 H 20.0-177.0 ng/mL Vitamin B12 Level 909 438-8967 pg/mL Folate 9.1 >=4.0 ng/mL Glucometer 124 H 172 H 230 H 70-110 MG/DL Test 08/22/22 05:06 08/22/22 05:35 Range/Units White Blood Count 9.0 4.3-11.0 10^3/uL Red Blood Count 2.63 L 3.80-5.11 10^6/uL Hemoglobin 7.9 L 11.5-16.0 g/dL Hematocrit 25 L 35-52 % Mean Corpuscular Volume 94 80-99 fL Mean Corpuscular Hemoglobin 30 25-34 pg Mean Corpuscular Hemoglobin Concent 32 32-36 g/dL Red Cell Distribution Width 12.5 10.0-14.5 % Platelet Count 224 130-400 10^3/uL Mean Platelet Volume 10.2 9.0-12.2 fL Sodium Level 142 135-145 MMOL/L Potassium Level 3.9 3.6-5.0 MMOL/L Chloride Level 111 H 98-107 MMOL/L Carbon Dioxide Level 25 21-32 MMOL/L Anion Gap 6 5-14 MMOL/L Blood Urea Nitrogen 35 H 7-18 MG/DL Creatinine 1.39 H 0.60-1.30 MG/DL Estimat Glomerular Filtration Rate 38 BUN/Creatinine Ratio 25 Glucose Level 136 H 70-105 MG/DL Calcium Level 9.7 8.5-10.1 MG/DL Magnesium Level 1.8 1.6-2.4 MG/DL Glucometer 168 H 70-110 MG/DL My Orders Medications Given in ED Vital Signs/I&O 08/21/22 08/21/22 08/21/22 08/22/22 19:20 20:01 21:00 00:00 Temp 36.6 36.2 Pulse 85 74 Resp 18 16 B/P (MAP) 159/89 (112) 155/79 (104) Pulse Ox 93 96 96 O2 Delivery Nasal Cannula Nasal Cannula High Flow N/C Nasal Cannula O2 Flow Rate 2.00 2.00 2.00 2.00 08/22/22 03:25 Temp 36.5 Pulse 74 Resp 16 B/P (MAP) 165/73 (103) Pulse Ox 98 O2 Delivery Nasal Cannula O2 Flow Rate 2.00 2.00 Capillary Refill : Less Than 3 Seconds Blood Pressure Mean: 104 Progress Note #1: Time: 07:56 Progress Note Patient was interviewed and examined shortly after arrival. Report was received from EMS crew. retirement chart was reviewed. Septic work-up is being pursued. We will administer albuterol for her wheezing. Further treatment will be determined based on results of work-up. Nursing staff will investigate what meds were given this morning. Zofran will be given for nausea. Progress Note #2: Time: 09:47 Progress Note Labs have been reviewed and interpreted in their entirety including CBC, CMP, CRP, BNP, and urinalysis. CRP was minimally elevated at 3.7. WBC was normal. Chemistry was interpreted as relatively unremarkable. Chest x-ray report was reviewed and was read as unremarkable by the radiologist. Patient received a DuoNeb treatment. She was reexamined and found to still be quite wheezy. Case has been discussed with Dr. Saldana, admitting hospitalist. After discussion prednisone 40 mg is being ordered for initial steroid therapy. Diagnostic Imaging Diagonstic Imaging: Xray Plain Films/CT/US/NM/MRI: chest Comments NAME: EDI TUCKER MED REC#: [id number] PT STATUS: REG ER : 1940 PHYSICIAN: NADIR LIM MD ADMIT DATE: 08/17/22/ER Draft Date of Exam:08/17/22 CHEST 1 VIEW, AP/PA ONLY INDICATION: Cough, Fever. TECHNIQUE: Single view chest 8:10 AM. CORRELATION STUDY: 10/22/2020 FINDINGS: The heart size, mediastinal configuration and pulmonary vascularity are within normal limits. The lungs are clear with no consolidating infiltrate. There is no significant effusion or pneumothorax. IMPRESSION: 1. Negative appearing portable chest. Dictated on workstation # [id number] Dict: 08/17/22812 Trans: 08/17/22812 DO [id number] Interpreted by: BRYSON RODRIGUEZ DO Departure Communication (Admissions) Time/Spoke to Admitting Phy: 09:40 Dr. Saldana Impression Primary Impression: Hypoxia Additional Impressions: Acute bronchitis Qualified Codes: J20.9 - Acute bronchitis, unspecified Acute febrile illness Disposition: ADMITTED INPATIENT Condition: Stable Admissions Decision to Admit Reason: Admit from ER (General) Decision to Admit/Date: Aug 17, 2022 Time/Decision to Admit Time: 09:40 Departure-Patient Inst. Referrals: RAYO SANDHU DO (PCP/Family) Primary Care Physician Copy Copies To 1: RAYO SANDHU JOSHUA T MD Aug 17, 2022 07:52
[2022-08-17 07:55] LABS: ALBUMIN 3.3 GM/DL (3.2-4.5)
[2022-08-17 07:56] LABS: POTASSIUM 4.4 MMOL/L (3.6-5.0)
[2022-08-17 07:57] LABS: CALCIUM 10.2 MG/DL (8.5-10.1); INR 1.1 (0.8-1.4); PROTHROMBIN TIME PATIENT 14.5 SEC (12.2-14.7)
[2022-08-17 07:58] LABS: TOTAL PROTEIN 6.2 GM/DL (6.4-8.2)
[2022-08-17 08:00] LABS: BILIRUBIN,TOTAL 0.2 MG/DL (0.1-1.0)
[2022-08-17] MEDS ORDERED: ONDANSETRON 4 MG/2 ML (SDV) Z0FRAN IVP ONE (08:00)
[2022-08-17 08:02] LABS: CREATININE SERUM 1.04 MG/DL (0.60-1.30)
--- NOTE | 2022-08-17 08:13 | Diagnostic Imaging Report ---
INDICATION: Cough, Fever. TECHNIQUE: Single view chest 8:10 AM. CORRELATION STUDY: 10/22/2020 FINDINGS: The heart size, mediastinal configuration and pulmonary vascularity are within normal limits. The lungs are clear with no consolidating infiltrate. There is no significant effusion or pneumothorax. IMPRESSION: 1. Negative appearing portable chest. Dictated by: Dictated on workstation # [id number]
[2022-08-17 08:15] LABS: BACTERIA,URINE NEGATIVE /HPF; RBC,URINE 0-2 /HPF; WBC,URINE 0-2 /HPF
[2022-08-17] MEDS ORDERED: RT-ALBUTEROL/IPRATROPIUM 3 ML (DUONEB) VIAL INH ONE (08:15)
[2022-08-17] MEDS ORDERED: ACETAMINOPHEN 500 MG TAB (TYLENOL) PO ONE (08:30)
[2022-08-17 08:39] LABS: ABG BASE EXCESS -0.6 MMOL/L (-2.5-2.5); ABG OXYGEN SATURATION 97 % (94-100); ABG PCO2 52 MMHG (35-45); ABG PO2 94 MMHG (79-93); ABG TCO2 26.2 MMOL/L (21.0-31.0)
[2022-08-17 08:40] LABS: ABG PH 7.31 (7.37-7.43)
[2022-08-17] MEDS ORDERED: amLODIPine 5 MG (NORVASC) TAB ONE (08:40)
[2022-08-17 08:41] LABS: ALLENS TEST YES-POS; INSPIRED O2 3; PATIENT TEMP 37.9; VENTILATOR NO
[2022-08-17] MEDS ORDERED: amLODIPine 5 MG (NORVASC) TAB PO ONE (08:45)
[2022-08-17] MEDS ORDERED: predniSONE 20 MG TAB PO ONE (10:00)
[2022-08-17] MEDS ORDERED: ONDANSETRON 4 MG/2 ML (SDV) Z0FRAN IV PRN (11:45)
[2022-08-17] MEDS ORDERED: MELATONIN 3 MG TABLET PO PRN (11:45)
[2022-08-17] MEDS ORDERED: CALCIUM CARBONATE 500 MG (TUMS) TAB.CHEW PO PRN (11:45)
--- NOTE | 2022-08-17 11:59 | History & Physical-Hospitalist ---
History of Present Illness HPI/Chief Complaint Pt is an 82yoCF who presented to the ER due to cough, fever, and hypoxia. She is pretty sleepy and her daughter in law is at bedside and provides most of the history. Patient just states she doesn't feel well. Symptoms started 08/15 with a cough but she had been outside that day so they didn't think much of it. She had a rough night that evening but was doing better and "perkier" per family yesterday and they thought she was improving. Apaprently she had a rough night per nursing staff again last night and this morning was found to be hypoxia at 86% on room air (does not typically wear oxygen) and was febrile so sent to the ER for evaluation. She was worked up for pna but CXR was negative and she does not have a leukocytosis. Due to hypoxia though she was admitted for further management. Source: patient, family Date Seen 08/17/22 Time Seen by a Provider: 11:59 Attending Physician Emerson Odom DO PCP Admitting Physician: Bessy Saldana MD Attending Physician: Bessy Saldana MD Referring Physician Date of Admission Aug 17, 2022 at 11:01 Home Medications & Allergies Home Medications Reviewed patient Home Medication Reconciliation performed by pharmacy medication reconciliations hazardous waste material technician and/or nursing. Patients Allergies have been reviewed. Allergies Allergies Coded Allergies No Known Drug Allergies (Unverified10/29/18) Past Kqbuims-Kdohny-Erawov Hx Patient Social History Tobacco Use?: No Substance use?: No Alcohol Use?: No Pt feels they are or have been: No Immunizations Up To Date Date of Influenza Vaccine: Oct 25, 2021 First/Initial COVID19 Vaccinat: YES Second COVID19 Vaccination Darío: YES Tetanus Booster (TDap): Unknown Hepatitis A: Yes Hepatitis B: Yes PED Vaccines UTD: Yes Date of Pneumonia Vaccine: Mar 17, 2014 Seasonal Allergies Seasonal Allergies: Yes (MILD) Current Status Advance Directives: No Communicates: Verbally Primary Language: Greek Preferred Spoken Language: Greek Is interpretation needed?: No Implanted or Applied Medical D: None Past Medical History Surgeries: Abdominal, Tonsillectomy, Tubal Ligation High Cholesterol, Hypertension Dementia, Stroke 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 Sexually Transmitted Disease: No HIV/AIDS: No Bladder Infection, Renal Failure Degenerate Disk Disease, Arthritis, Chronic Back Pain Diabetes, Non-Insulin dep Loss of Vision: Denies Hearing Impairment: Denies Breast, Colon Did You Recieve Any Treatments: Yes What Type of Treatment Did You: Surgical Intervention Depression Blood Disorders: No Adverse Reaction/Blood Tranf: No (N/A) Family Medical History Alcoholism 19 FATHER Completed stroke 19 MOTHER Dementia 19 MOTHER Diabetes mellitus 19 MOTHER G8 BROTHER FH: breast cancer G8 SISTER FH: uterine cancer 19 MOTHER Hypertension G8 BROTHER Respiratory disorder 19 FATHER Review of Systems Constitutional: see HPI Physical Exam Physical Exam Vital Signs Vital Signs - First Documented 08/17/22 08/17/22 07:25 08:36 Temp 37.9 Pulse 83 Resp 16 B/P (MAP) 168/73 (104) FiO2 100 Capillary Refill : Less Than 3 Seconds Height, Weight, BMI Height: 5'3.00" Weight: 221lbs. 3.0oz. 100.914980yz; 29.00 BMI Method: General Appearance: No Apparent Distress, Chronically ill, Obese, Other (sleepy) Respiratory: No Accessory Muscle Use, No Respiratory Distress, Wheezing (scant expiratory) Cardiovascular: Regular Rate, Rhythm, No Murmur Gastrointestinal: Normal Bowel Sounds, Non Tender, Soft Extremity: No Pedal Edema Neurologic/Psychiatric: Alert, Other (answers questions appropriately but quickly back to sleep, states she is tired) Results Results/Procedures Labs Laboratory Tests 08/17/22 07:34 08/18/22 05:01 Patient resulted labs reviewed. Imaging: Reviewed Imaging Report Imaging [facility], [place] NAME: EDI TUCKER Tim [facility] REC#: [id number] PT STATUS: ADM IN : 1940 PHYSICIAN: NADIR LIM MD ADMIT DATE: 08/17/22 Signed Date of Exam:08/17/22 CHEST 1 VIEW, AP/PA ONLY INDICATION: Cough, Fever. TECHNIQUE: Single view chest 8:10 AM. CORRELATION STUDY: 10/22/2020 FINDINGS: The heart size, mediastinal configuration and pulmonary vascularity are within normal limits. The lungs are clear with no consolidating infiltrate. There is no significant effusion or pneumothorax. IMPRESSION: 1. Negative appearing portable chest. Dictated by: Dictated on workstation # [id number] Dict: 08/17/2213 Trans: 08/17/22 1142 DO [id number] Interpreted by: BRYSON RODRIGUEZ DO Electronically signed by: BRYSON RODRIGUEZ DO 08/17/22 1142 Assessment/Plan Admission Diagnosis Acute hypoxic resp failure due to bronchitis Admission Status: Inpatient Order (span 2 midnights) Reason for Inpatient Admission: see below- failed outpatient management Assessment and Plan Acute hypoxic resp failure due to bronchitis Continue steroids MAT protocol Check repeat CXR in AM Wean oxygen as able Hypertension SBP >200 on arrival but had not had morning meds Improved with amlodipine Resume home meds per med rec history T2DM Levemir to resume when dose confirmed from [place] Sliding scale insulin Monitor with her Dexcom Debility Family reports she does not move much at baseline PT/OT DVT ppx: BESSY Herron MD Aug 17, 2022 11:59
[2022-08-17 12:00] VITALS: BP 156/56
[2022-08-17 13:01] VITALS: BP 168/73
[2022-08-17] MEDS ORDERED: RT-ALBUTEROL/IPRATROPIUM 3 ML (DUONEB) VIAL INH PRN (13:15)
[2022-08-17] MEDS: hydrALAZINE (APRESOLINE) 25 MG TAB PO SCH ×2 (14:17→21:16)
[2022-08-17] MEDS: ENOXAPARIN 40 MG/0.4 ML (LOVENOX) SYR SQ SCH (14:18)
[2022-08-17] MEDS: guaiFENesin/DM (ROBITUSSIN DM) 10 ML UDC PO PRN (14:22)
--- NOTE | 2022-08-17 14:33 | Physical Therapy Progress Note ---
Therapy Progress Note Pt in bed, awakened by voice but keeps eyes closed. Pt with difficulty remaining awake; would answer questions briefly but repeatedly falling asleep. Unable to complete eval due to poor level of alertness. Will attempt 08/19/2022. RADHA GEORGE DPT Aug 17, 2022 14:33
[2022-08-17 16:00] VITALS: BP 160/91
[2022-08-17] MEDS: inSUlin ASPART (NovoLOG) 1 UNIT/0.01 ML (CHARGE PER UNIT) SC SCH ×2 (17:41→21:11)
[2022-08-17 19:28] VITALS: BP 160/89
[2022-08-17] MEDS: RT-ALBUTEROL/IPRATROPIUM 3 ML (DUONEB) VIAL INH SCH (20:23)
[2022-08-17] MEDS: SERTRALINE 100 MG (ZOLOFT) TAB PO SCH (21:16)
[2022-08-17] MEDS: doxAzosin 1 MG (CARDURA) TAB PO SCH (21:16)
[2022-08-17] MEDS: MICONAZOLE 2% POWDER (DESENEX AF) 90 GM TOP SCH (21:16)
[2022-08-17] MEDS: guaiFENesin (MUCINEX) 600 MG TAB PO SCH (21:16)
[2022-08-17 23:29] VITALS: BP 132/65
[2022-08-18] VITALS (9 sets, daily range): BP systolic 116–172; BP diastolic 46–104
[2022-08-18] MEDS: ENOXAPARIN 40 MG/0.4 ML (LOVENOX) SYR SQ SCH (00:30)
[2022-08-18 05:14] LABS: HEMATOCRIT 31 % (35-52); HEMOGLOBIN 9.6 g/dL (11.5-16.0); MEAN CORPUSCULAR HEMOGLOBIN 31 pg (25-34); MEAN CORPUSCULAR HGB CONC 31 g/dL (32-36); MEAN CORPUSCULAR VOLUME 98 fL (80-99); MEAN PLATELET VOLUME 9.6 fL (9.0-12.2); PLATELET COUNT 176 10^3/uL (130-400); WHITE BLOOD COUNT 9.4 10^3/uL (4.3-11.0)
[2022-08-18] MEDS: inSUlin ASPART (NovoLOG) 1 UNIT/0.01 ML (CHARGE PER UNIT) SC SCH ×4 (05:31→21:51)
[2022-08-18 05:34] LABS: POTASSIUM 4.5 MMOL/L (3.6-5.0)
[2022-08-18 05:35] LABS: CALCIUM 10.1 MG/DL (8.5-10.1)
[2022-08-18 05:39] LABS: CREATININE SERUM 1.28 MG/DL (0.60-1.30)
[2022-08-18] MEDS: hydrALAZINE (APRESOLINE) 25 MG TAB PO SCH ×3 (05:48→21:23)
[2022-08-18] MEDS: RT-ALBUTEROL/IPRATROPIUM 3 ML (DUONEB) VIAL INH SCH ×4 (07:09→22:19)
[2022-08-18 07:55] LABS: ABG BASE EXCESS -1.6 MMOL/L (-2.5-2.5); ABG OXYGEN SATURATION 100 % (94-100); ABG PCO2 49 MMHG (35-45); ABG PO2 196 MMHG (79-93); ABG TCO2 25.5 MMOL/L (21.0-31.0)
[2022-08-18 08:00] LABS: ABG PH 7.31 (7.37-7.43); ALLENS TEST YES-POS; INSPIRED O2 40 L 100%; PATIENT TEMP 36.4; VENTILATOR NO
[2022-08-18] MEDS ORDERED: methylPREDNISolone 125 MG (Solu-MEDROL) VIAL IM NR (08:30)
[2022-08-18] MEDS ORDERED: predniSONE 20 MG TAB PO SCH (09:00)
[2022-08-18] MEDS ORDERED: RT-ALBUTEROL/IPRATROPIUM 3 ML (DUONEB) VIAL INH SCH (09:00)
--- NOTE | 2022-08-18 09:00 | Diagnostic Imaging Report ---
INDICATION: Cough. COMPARISON: 08/17/2022. FINDINGS: Single frontal view of the chest demonstrates normal heart size and pulmonary vascularity. The lungs are well aerated and clear. No large pleural effusion or pneumothorax is seen. The visualized osseous structures show no acute abnormalities. IMPRESSION: No acute cardiopulmonary process. Dictated by: Dictated on workstation # [id number]
[2022-08-18] MEDS: ENOXAPARIN 120 MG/0.8 ML (LOVENOX) SQ SCH ×2 (09:14→20:26)
--- NOTE | 2022-08-18 10:36 | Progress Note - Hospitalist ---
Subjective HPI/CC On Admission Date Seen by Provider: Aug 18, 2022 Pt is an 82yoCF who presented to the ER due to cough, fever, and hypoxia. She is pretty sleepy and her daughter in law is at bedside and provides most of the history. Patient just states she doesn't feel well. Symptoms started 08/15 with a cough but she had been outside that day so they didn't think much of it. She had a rough night that evening but was doing better and "perkier" per family yesterday and they thought she was improving. Apaprently she had a rough night per nursing staff again last night and this morning was found to be hypoxia at 86% on room air (does not typically wear oxygen) and was febrile so sent to the ER for evaluation. She was worked up for pna but CXR was negative and she does not have a leukocytosis. Due to hypoxia though she was admitted for further maryann cornelius. Subjective/Events-last exam Pt quite sleepy. Wakes up but with more effort than needed yesterday. Overnight had increasing oxygen requirement and now maxed on Vapotherm. ABG revealed some hypercapnia. Discussed with family plan for BiPAP and to transfer to ICU. Focused Exam Lactate Level 08/17/22 07:34: Lactic Acid Level 0.60 Objective Exam Vital Signs Vital Signs Date Time Temp Pulse Resp B/P (MAP) Pulse Ox O2 Delivery O2 Flow Rate FiO2 08/18/22 09:00 103 180/71 (107) 92 NIV Bilevel 50.00 08/18/22 08:35 26 08/18/22 08:00 100 08/18/22 07:45 36.8 Capillary Refill : Less Than 3 Seconds General Appearance: Chronically ill, Obese, Other (quite drowsy) Respiratory: Lungs Clear, No Accessory Muscle Use; No Wheezing; Other (on vapotherm) Cardiovascular: Regular Rate, Rhythm, No Murmur Gastrointestinal: Normal Bowel Sounds, Soft Neurologic/Psychiatric: Other (arouses when spoken to but needs prompting to even attempt to answer any questions and then quickly back to sleep) Results/Procedures Lab Laboratory Tests 08/18/22 05:01 Patient resulted labs reviewed. Imaging: Reviewed Imaging Report Assessment/Plan Assessment and Plan Assess & Plan/Chief Complaint Acute hypoxic resp failure due to bronchitis Placed on BiPAP Continue steroids- increase to IV regimen MAT protocol repeat CXR without acute process Transfer to ICU Spoke with Dr Awad regarding patient Increased Lovenox to therapeutic dosing- will attempt CTA if breathing improves Hypertension Continue home med BP improved T2DM Levemir Sliding scale insulin BS well controlled Monitor with her Dexcom Debility Family reports she does not move much at baseline PT/OT DVT ppx: Lovenox BESSY PEREA MD Aug 18, 2022 10:36
[2022-08-18] MEDS ORDERED: PROCHLORPERAZINE 10 MG/2ML INJ (COMPAZINE) IV PRN (10:45)
--- NOTE | 2022-08-18 11:02 | Tele-ICU Consult ---
History of Present Illness History of Present Illness Date Seen by Provider: Aug 18, 2022 Time Seen by Provider: 10:50 Reason for Visit: cough, congestion, fever. History of Present Illness She is a 82 yr old CF with pmhx of HTN, T2DM, HLD presented with c/o low grade fever, cough, congestion, and shortness of breathstarting 08/15/22. yesterday she was found to hypoxic and wheezing in ED requiring O2. cxr is clear. wbc is normal. she is admitted to medical floor and started treatment with neb treatments and steroids in addition to supplemental oxyegen. early this am she spiked temp. she is requiring more oxygen and WOB is increased. Hence she is transferred to ICU and placed on BIPAP. consulted tele icu and I have discussed with Dr. Saldana. Video visit made and also Discussed with TISSUE PACKER. Resporetedly she is markedly congested and wheezing.. no hx of cp, or copd. Fully vaccinated for COVID-19 and influenza. Allergies and Home Medications Allergies Coded Allergies: No Known Drug Allergies (Unverified , 10/29/18) Home Medications Acetaminophen 650 Mg Tablet.er, 650 MG PO BID, (Reported) Acetaminophen 500 Mg Tablet, 500 MG PO BID PRN for PAIN-MILD (1-4), (Reported) Amlodipine Besylate 5 Mg Tablet, 5 MG PO DAILY, (Reported) Ascorbic Acid 500 Mg Capsule.er, 500 MG PO DAILY, (Reported) Aspirin 81 Mg Tablet.dr, 81 MG PO DAILY, (Reported) Atorvastatin Calcium 40 Mg Tablet, 40 MG PO DAILY, (Reported) Calcium Carb & Citrate/Vit D3 600MG-12.5 Tablet.er, 1 EACH PO DAILY, (Reported) Cholecalciferol (Vitamin D3) 50 Mcg (2000 Unit) Capsule, 50 MCG PO DAILY, (Reported) Doxazosin Mesylate 1 Mg Tablet, 1 MG PO HS Prescribed by: VANESSA LOPEZ on 02/05/21 1020 Ferrous Sulfate 325 Mg Tablet, 325 MG PO DAILY, (Reported) Hydralazine HCl 25 Mg Tablet, 25 MG PO TID, (Reported) Insulin Aspart 100 Unit/Ml Cartridge, 3 UNITS SQ AC PRN for HYPERGLYCEMIA, (Reported) Insulin Glargine,Hum.rec.anlog 100 Unit/Ml (3 Ml) Insuln.pen, 25 UNIT SQ HS, (Reported) Letrozole 2.5 Mg Tablet, 2.5 MG PO DAILY, (Reported) Levetiracetam 750 Mg Tablet, 750 MG PO BID, (Reported) Olmesartan Medoxomil 20 Mg Tablet, 20 MG PO DAILY, (Reported) Milton 3 Polyunsat Fatty Acids 1,000 Mg Cap, 1,000 MG PO BID, (Reported) Pantoprazole Sodium 40 Mg Tablet.dr, 40 MG PO DAILY, (Reported) Sertraline HCl 25 Mg Tablet, 25 MG PO DAILY, (Reported) Sitagliptin Phosphate 100 Mg Tablet, 100 MG PO DAILY, (Reported) Tramadol HCl 50 Mg Tablet, 50 MG PO Q4H PRN for PAIN, (Reported) Vit A,C & E/Lutein/Minerals 1 Each Tablet, 1 EACH PO BID, (Reported) Zinc 50 Mg Tablet, 50 MG PO DAILY, (Reported) Past Medical/Social/Family Hx Patient Social History Tobacco Use?: No Substance use?: No Alcohol Use?: No Pt stated abuse/neglect: No Immunizations Up To Date Influenza Vaccine Up-to-Date: Yes; Up-to-Date First/Initial COVID19 Vaccinat: YES Second COVID19 Vaccination Darío: YES Tetanus Booster (TDap): Unknown Hepatitis A: Yes Hepatitis B: Yes Date of Pneumonia Vaccine: Mar 17, 2014 Current Status status: No Advance Directives: Yes Advance Directive Location: Copy placed in chart Communicates: Verbally Primary Language: Tajik Preferred Spoken Language: Tajik Is interpretation needed?: No Sensory deficits: Vision impairment Implanted or Applied Medical D: None Review of Systems Constitutional: see HPI, other (SHORNESS OF BREATH. FEVER) Other ROS PER ATTENDING PHYSICIAN Focused Exam Sepsis Stage: Sepsis Lactate Level 08/17/22 07:34: Lactic Acid Level 0.60 Height, Weight, BMI Height: 5'3.00" Weight: 221lbs. 3.0oz. 100.795256od; 41.55 BMI Method: Exam Exam Patient acknowledged, consented, and participated in this virtual visit which was conducted using real time audio/video Vital Signs Date Time Temp Pulse Resp B/P (MAP) Pulse Ox O2 Delivery O2 Flow Rate FiO2 08/18/22 10:44 97 24 93 50.00 08/18/22 09:00 103 180/71 (107) 92 NIV Bilevel 50.00 08/18/22 08:35 100 26 91 50.00 08/18/22 08:00 95 Vapotherm 40.00 100 08/18/22 07:45 36.8 72 21 116/65 (82) 95 100.00 40.00 08/18/22 07:28 95 Vapotherm 40.00 100 08/18/22 07:00 66 08/18/22 05:47 89 172/70 (104) 94 Non Rebreather 15.00 08/18/22 05:26 36.4 86 OxyMask 10.00 08/18/22 03:55 38.2 85 20 144/65 (91) 98 OxyMask 7.00 08/18/22 03:13 93 OxyMask 7.00 08/18/22 00:45 77 08/18/22 00:39 92 20 92 OxyMask 7.00 08/17/22 23:29 37.1 90 18 132/65 (87) 90 Nasal Cannula 10.00 08/17/22 22:44 87 High Flow N/C 12.00 08/17/22 21:20 91 High Flow N/C 10.00 08/17/22 20:25 90 High Flow N/C 10.00 08/17/22 19:28 37.2 80 19 160/89 (112) 95 Nasal Cannula 3.00 08/17/22 19:22 82 08/17/22 18:41 Nasal Cannula 3.00 08/17/22 18:15 85 08/17/22 16:00 37.4 82 19 160/91 (114) 96 Nasal Cannula 3.00 08/17/22 13:01 36.5 83 96 08/17/22 12:00 36.9 65 19 156/56 (89) 97 Nasal Cannula 3.00 I & O 08/18/22 07:00 Intake Total 525 ml Output Total 950 ml Balance -425 ml Height & Weight Height: 5'3.00" Weight: 221lbs. 3.0oz. 100.746556pg; 41.55 BMI Method: General Appearance: No Apparent Distress, Chronically ill, Obese, Other (sleepy) HEENT: PERRL/EOMI, Normal ENT Inspection, Other (Moist mucous membranes) Neck: Normal Inspection; No JVD Respiratory: No Accessory Muscle Use, No Respiratory Distress, Wheezing (scant expiratory) Cardiovascular: Regular Rate, Rhythm, No Murmur Capillary Refill: Less Than 3 Seconds Extremity: No Pedal Edema Neurologic/Psychiatric: Alert, Other (answers questions appropriately but quickly back to sleep, states she is tired) Other comments PE PER RN AND PCP Results Lab Laboratory Tests 08/17/22 07:34 08/18/22 05:01 Assessment/Plan Assessment/Plan 1. ACUTE BRONCHITIS WITH SEVERE BRONCHOSPASM. SEPSIS CANOT BE RULED OUT. 2. ACUTE HYPOXIC AND HYPER CARBIC RESPIRATORY FAILURE. 3.DECREASED MENTAL STATUS DUE O METABOLIC ENCEPHALOPATHY/SEPSIS. 4. HX OF TYPE 2 DM 5. HTN. 6. CHR. ANEMIA PLAN. 1. BIPAP VENTILATTION 2. IV STEROIDS. 3. START ON IV ANTIBIOTICS AFTER OBTAINING C/S 4.DVT PEOPHYLAXIS 5 DUO NEB NEB TREATMENTS. 6.SERUM IRONSTUDIES. 7. MONITOR BLOOD GLUCOSE AND SSI CARE COLLABORATION WITH ATTENDING PHYSICIAN. Critical Care: Critically Ill Patient Time spent with patient (mins): 35 SURY MARCUS MD Aug 18, 2022 11:02
[2022-08-18] MEDS ORDERED: NS (IVPB) 50 ML ONE (11:35)
[2022-08-18] MEDS: MICONAZOLE 2% POWDER (DESENEX AF) 90 GM TOP SCH ×2 (11:45→20:31)
[2022-08-18] MEDS: cefTRIAXone IV/IM 1,000 MG in NS (IVPB) 50 ML IV SCH (11:45)
[2022-08-18] MEDS: AZITHROMYCIN INJECTION 500 MG in NS (IVPB) 250 ML IV SCH (11:46)
[2022-08-18] MEDS ORDERED: methylPREDNISolone 125 MG (Solu-MEDROL) VIAL IVP SCH (12:00)
[2022-08-18] MEDS ORDERED: RT-ALBUTEROL SULF 2.5 MG/3 ML PRE-MIX VIAL INH NR (12:30)
[2022-08-18] MEDS: PANTOPRAZOLE 40 MG (PROTONIX) TAB PO SCH (12:31)
[2022-08-18] MEDS: guaiFENesin (MUCINEX) 600 MG TAB PO SCH ×2 (12:31→20:25)
[2022-08-18] MEDS ORDERED: LACTATED RINGERS 1,000 ML IV SCH ×2 (14:15→17:15)
[2022-08-18 15:25] LABS: ABG BASE EXCESS -4.8 MMOL/L (-2.5-2.5); ABG OXYGEN SATURATION 99 % (94-100); ABG PCO2 53 MMHG (35-45); ABG PO2 171 MMHG (79-93); ABG TCO2 23.4 MMOL/L (21.0-31.0)
[2022-08-18 15:28] LABS: ABG PH 7.23 (7.37-7.43); INSPIRED O2 50; PATIENT TEMP 36.3; VENTILATOR NO
[2022-08-18] MEDS: LACTATED RINGERS 1,000 ML IV SCH ×2 (16:20→22:47)
[2022-08-18 16:32] LABS: POTASSIUM 4.6 MMOL/L (3.6-5.0)
[2022-08-18 16:38] LABS: CREATININE SERUM 1.96 MG/DL (0.60-1.30)
[2022-08-18] MEDS: methylPREDNISolone 125 MG (Solu-MEDROL) VIAL IVP SCH (18:46)
[2022-08-18] MEDS: doxAzosin 1 MG (CARDURA) TAB PO SCH (20:25)
[2022-08-18] MEDS: SERTRALINE 100 MG (ZOLOFT) TAB PO SCH (20:25)
[2022-08-18 23:18] LABS: ABG PCO2 52 MMHG (35-45); ABG PO2 135 MMHG (79-93); ABG TCO2 24.8 MMOL/L (21.0-31.0)
[2022-08-18 23:19] LABS: ABG OXYGEN SATURATION 99 % (94-100); ALLENS TEST YES-POS; INSPIRED O2 75%; PATIENT TEMP 36.1; VENTILATOR NO
[2022-08-18 23:20] LABS: ABG PH 7.27 (7.37-7.43)
[2022-08-19] MEDS: methylPREDNISolone 125 MG (Solu-MEDROL) VIAL IVP SCH ×2 (00:10→05:18)
[2022-08-19] MEDS ORDERED: NS 100 ML (IVPB) BAG IV ONE (00:15)
[2022-08-19] MEDS ORDERED: NS IV 500 ML 500 ML ONE (00:19)
[2022-08-19] MEDS ORDERED: NS IV 1000 ML 500 ML IV ONE (00:45)
[2022-08-19] MEDS: RT-ALBUTEROL/IPRATROPIUM 3 ML (DUONEB) VIAL INH SCH ×6 (02:18→22:14)
[2022-08-19 02:19] VITALS: BP 138/52
[2022-08-19] MEDS ORDERED: FUROSEMIDE 40 MG/4 ML INJ (LASIX) ONE (02:54)
[2022-08-19] MEDS ORDERED: FUROSEMIDE 40 MG/4 ML INJ (LASIX) IVP ONE (03:00)
[2022-08-19 04:31] LABS: HEMATOCRIT 29 % (35-52); HEMOGLOBIN 8.8 g/dL (11.5-16.0); MEAN CORPUSCULAR HEMOGLOBIN 31 pg (25-34); MEAN CORPUSCULAR HGB CONC 31 g/dL (32-36); MEAN CORPUSCULAR VOLUME 99 fL (80-99); MEAN PLATELET VOLUME 10.1 fL (9.0-12.2); PLATELET COUNT 157 10^3/uL (130-400); WHITE BLOOD COUNT 8.6 10^3/uL (4.3-11.0)
[2022-08-19 04:47] LABS: POTASSIUM 4.6 MMOL/L (3.6-5.0)
[2022-08-19 04:48] LABS: CALCIUM 9.5 MG/DL (8.5-10.1)
--- NOTE | 2022-08-19 04:51 | Diagnostic Imaging Report ---
INDICATION: 82-year-old female with acute respiratory failure. COMPARISONS: 08/18/2022 FINDINGS: Single view of the chest shows the cardiac contour to be within normal limits. There is some persistent scattered right lung infiltrates with more confluent consolidation in the right lower lobe. Given differences in technique, this is probably not significantly changed. The cardiac contour is normal. There is no effusion or pneumothorax. Soft tissues and bony thorax are unchanged. IMPRESSION: Few scattered right lung infiltrates with more confluent consolidation in the right lower lobe. Overall minimal change given differences in technique. Dictated by: Dictated on workstation # [id number]
[2022-08-19 04:52] LABS: CREATININE SERUM 1.93 MG/DL (0.60-1.30)
[2022-08-19] MEDS: hydrALAZINE (APRESOLINE) 25 MG TAB PO SCH ×3 (05:15→22:56)
[2022-08-19] MEDS: inSUlin ASPART (NovoLOG) 1 UNIT/0.01 ML (CHARGE PER UNIT) SC SCH ×4 (05:18→21:18)
[2022-08-19] MEDS: LACTATED RINGERS 1,000 ML IV SCH ×3 (06:19→17:50)
[2022-08-19 06:54] VITALS: BP 132/57
--- NOTE | 2022-08-19 07:44 | Physical Therapy Progress Note ---
Therapy Progress Note Patient on Hold per RN due to current medical status. PT will continue to monitor patient status. PAUL REYES PT Aug 19, 2022 07:44
[2022-08-19] MEDS: guaiFENesin (MUCINEX) 600 MG TAB PO SCH ×2 (09:02→21:05)
[2022-08-19] MEDS: AZITHROMYCIN INJECTION 500 MG in NS (IVPB) 250 ML IV SCH (09:02)
[2022-08-19] MEDS: PANTOPRAZOLE 40 MG (PROTONIX) TAB PO SCH (09:02)
[2022-08-19] MEDS: MICONAZOLE 2% POWDER (DESENEX AF) 90 GM TOP SCH ×2 (09:03→21:25)
[2022-08-19] MEDS ORDERED: DEXT30SU5 PO (09:48)
[2022-08-19] MEDS ORDERED: INSU100V42 SQ (09:48)
[2022-08-19] MEDS ORDERED: POLY17PO6 PO (09:48)
[2022-08-19] MEDS ORDERED: CALC-774 PO (09:48)
[2022-08-19] MEDS ORDERED: SERT-413 PO (09:48)
[2022-08-19] MEDS ORDERED: SERT150C PO (09:48)
[2022-08-19] MEDS ORDERED: OMEG100032 PO (09:48)
[2022-08-19] MEDS ORDERED: ZINC50TA51 PO (09:48)
[2022-08-19] MEDS ORDERED: DOCU100T2 PO (09:48)
[2022-08-19] MEDS ORDERED: SERT-414 PO (09:48)
[2022-08-19] MEDS ORDERED: DOXA1TAB2 PO (09:48)
[2022-08-19] MEDS ORDERED: TRAM50TA3 PO (09:48)
[2022-08-19] MEDS ORDERED: GLUC1KIT IJ (09:48)
[2022-08-19 10:33] VITALS: BP 118/61
[2022-08-19] MEDS ORDERED: NS IV 500 ML 500 ML IV PRN (11:00)
--- NOTE | 2022-08-19 11:07 | Occ Therapy Progress Note ---
Therapy Progress Note OT order received, Patient on Hold per RN due to current medical status. OT will continue to monitor patient status. YOSELYN JONES OT Aug 19, 2022 11:07
[2022-08-19] MEDS: cefTRIAXone IV/IM 1,000 MG in NS (IVPB) 50 ML IV SCH (11:20)
--- NOTE | 2022-08-19 11:23 | Tele-ICU Progress Note ---
Subjective Date Seen by a Provider: Aug 19, 2022 Time Seen by a Provider: 11:23 Subjective/Events-last exam (Tele-ICU Physician , Progress Note ) Service provided via interactive audio and video telecommunications E-CARE system to a patient admitted to ICU bed in [facility]. Patient is seen today due to persistent need of ICU care Available chart/ vitals / labs / Images reviewed Video assessment done using teleICU camera, rest of exam as per RN Discussed with RN Events overnight : Afebrile hemodynamically stable Respiratory - 70 % I/O = folwy Drips: LR 125 Pressors- no Hospital course: A/P Acute on chronic hypoxic and hepercarbic resp failure AVAPS - 500 70% rr 24 MV 8L - to cont , follow AECOPD, severe br-spasm - SM 100 q6 -nebs Possible PNA / LRTI - cont abx , cx pending CARY - worsening with Ctr 1.9 today - oliguria - cont IVF for now , consider diuretics if worsenig O2 needs Encephalopaty - slow improvement Nutrition - NPO- onNIPPV 2 days DM II - ISS Bradyarrythmias - check lytes Lines : peripf , (Central Line Necessity Reviewed) Castellanos: OG: Nutrition: Analgesia: Anxiety/ delirium VTE Prophylaxis: kasi 120 bid Stress Ulcer Prophylaxis: ppi Plans in collaboration with bedside consultants and IM MDs. Discussed with RN to reach out if any questions or concerns Case and care daily discussed on multidisciplinary rounds ( RN, PharmD, Ribbon Cutter , Respiratory Therapy, connection worker ) A total of 31 minutes of critical care time was devoted to this patient today, required to treat and/or prevent further deterioration of critical care condition ( as above ) . I am remotely monitoring this patient from another state. I am unable to do the bedside exam, and history/physical and pertinent information is taken from other notes in the computer and bedside staff. Sepsis Event Evaluation Height, Weight, BMI Height: 5'3.00" Weight: 221lbs. 3.0oz. 100.926127tm; 38.68 BMI Method: Focused Exam Lactate Level 08/17/22 07:34: Lactic Acid Level 0.60 08/18/22 16:15: Lactic Acid Level 3.21*H 08/18/22 20:14: Lactic Acid Level 1.77 Exam Exam Patient acknowledged, consented, and participated in this virtual visit which was conducted using real time audio/video Vital Signs Date Time Temp Pulse Resp B/P (MAP) Pulse Ox O2 Delivery O2 Flow Rate FiO2 08/19/22 11:00 87 15 118/57 (77) 95 NIV Bilevel 60.00 08/19/22 10:56 99 NIV Bilevel 60.00 08/19/22 10:45 60.00 08/19/22 10:33 85 20 96 65.00 08/19/22 10:00 85 20 98/58 (71) 90 NIV Bilevel 70.00 08/19/22 09:00 87 15 137/70 (92) 98 NIV Bilevel 70.00 08/19/22 08:00 84 21 135/54 (81) 100 NIV Bilevel 70.00 08/19/22 07:51 36.3 08/19/22 07:49 100 NIV Bilevel 70.00 08/19/22 07:00 84 08/19/22 07:00 84 21 136/58 (84) 92 NIV Bilevel 75.00 08/19/22 06:54 86 21 92 75.00 08/19/22 06:30 88 15 132/57 (82) 96 NIV Bilevel 75.00 08/19/22 06:09 77 20 101/42 (61) 94 NIV Bilevel 75.00 08/19/22 06:00 79 18 96/45 (62) 91 NIV Bilevel 75.00 08/19/22 05:00 86 18 109/53 (71) 91 NIV Bilevel 75.00 08/19/22 04:39 95 NIV Bilevel 75.00 08/19/22 04:39 36.1 NIV Bilevel 75.00 08/19/22 04:30 96 15 119/52 (74) 94 NIV Bilevel 100.00 08/19/22 03:00 104 21 101/45 (60) 87 NIV Bilevel 100.00 08/19/22 02:55 87 100.00 08/19/22 02:45 18 85 NIV Bilevel 100.00 08/19/22 02:19 109 22 88 90.00 08/19/22 02:00 103 19 138/52 (84) 92 NIV Bilevel 75.00 08/19/22 01:00 105 22 129/61 (94) 98 NIV Bilevel 75.00 08/19/22 01:00 105 6/5/23 00:16 36.1 08/19/22 00:06 96 NIV Bilevel 75.00 08/19/22 00:00 101 18 121/50 (73) 96 NIV Bilevel 75.00 08/18/22 23:00 98 20 129/59 (86) 97 NIV Bilevel 75.00 08/18/22 22:15 102 96 75.00 08/18/22 22:00 105 23 142/66 (88) 96 NIV Bilevel 75.00 08/18/22 21:00 105 21 141/62 (88) 96 NIV Bilevel 75.00 08/18/22 20:00 106 40 142/81 (106) 95 NIV Bilevel 75.00 08/18/22 19:54 95 NIV Bilevel 75.00 08/18/22 19:43 36.6 08/18/22 19:00 105 08/18/22 19:00 105 19 137/56 (97) 97 NIV Bilevel 75.00 08/18/22 18:20 109 24 96 75.00 08/18/22 18:00 106 23 145/60 (84) 96 NIV Bilevel 75.00 08/18/22 17:44 NIV Bilevel 75.00 08/18/22 17:00 98 21 97 NIV Bilevel 80.00 08/18/22 16:37 NIV Bilevel 80.00 08/18/22 16:30 90 NIV Bilevel 50.00 08/18/22 16:00 101 17 97 NIV Bilevel 50.00 08/18/22 15:50 36.9 08/18/22 15:50 36.9 08/18/22 15:00 112 26 158/58 (93) 95 NIV Bilevel 50.00 08/18/22 14:28 107 30 95 80.00 08/18/22 14:00 110 151/48 (90) 96 NIV Bilevel 50.00 08/18/22 13:00 110 157/60 (103) 96 NIV Bilevel 50.00 08/18/22 12:58 105 08/18/22 12:42 108 21 95 80.00 08/18/22 12:30 90 NIV Bilevel 50.00 08/18/22 12:00 102 132/104 (118) 87 NIV Bilevel 50.00 08/18/22 11:45 37.1 08/18/22 11:45 37.1 I & O0 08/19/22 07:00 Intake Total 4407.5 ml Output Total 360 ml Balance 4047.5 ml Height & Weight Height: 5'3.00" Weight: 221lbs. 3.0oz. 100.724147on; 38.68 BMI Method: General Appearance: No Apparent Distress, Chronically ill, Obese, Other (sleepy) HEENT: PERRL/EOMI, Normal ENT Inspection, Other (Moist mucous membranes) Neck: Normal Inspection; No JVD Respiratory: No Accessory Muscle Use, No Respiratory Distress, Wheezing (scant expiratory) Cardiovascular: Regular Rate, Rhythm, No Murmur Capillary Refill: Less Than 3 Seconds Extremity: No Pedal Edema Neurologic/Psychiatric: Alert, Other (answers questions appropriately but quickly back to sleep, states she is tired) Results Lab Laboratory Tests 08/18/22 05:01 08/18/22 16:15 08/19/22 03:54 Assessment/Plan Assessment/Plan 1 MARY ELLEN PERKINS MD Aug 19, 2022 11:23
[2022-08-19] MEDS: MAGNESIUM 1 GM/100 ML IVPB 100 ML IV SCH ×2 (12:09→13:13)
--- NOTE | 2022-08-19 12:33 | Diagnostic Imaging Report ---
PROCEDURE: US Venous Lower Ext Srinath. TECHNIQUE: Multiple real-time grayscale images were obtained over the lower extremities in various projections, bilaterally. Additional duplex Doppler and color Doppler images were also obtained. INDICATION: Lower extremity edema and possible PE. FINDINGS: There is no evidence of right or left lower extremity DVT. Both lower extremity deep venous systems demonstrate normal compressibility with normal response to augmentation and Valsalva. No fluid collection or mass is detected. IMPRESSION: No evidence of right or left lower extremity DVT. Dictated by: Dictated on workstation # [id number]
[2022-08-19 14:16] VITALS: BP 132/64
[2022-08-19] MEDS ORDERED: FUROSEMIDE 40 MG/4 ML INJ (LASIX) IVP NR (16:00)
--- NOTE | 2022-08-19 16:45 | Progress Note - Hospitalist ---
Subjective HPI/CC On Admission Date Seen by Provider: Aug 19, 2022 Time Seen by Provider: 09:45 Pt is an 82yoCF who presented to the ER due to cough, fever, and hypoxia. She is pretty sleepy and her daughter in law is at bedside and provides most of the history. Patient just states she doesn't feel well. Symptoms started 08/15 with a cough but she had been outside that day so they didn't think much of it. She had a rough night that evening but was doing better and "perkier" per family yesterday and they thought she was improving. Apaprently she had a rough night per nursing staff again last night and this morning was found to be hypoxia at 86% on room air (does not typically wear oxygen) and was febrile so sent to the ER for evaluation. She was worked up for pna but CXR was negative and she does not have a leukocytosis. Due to hypoxia though she was admitted for further management. Subjective/Events-last exam She is wearing BiPAP. She is alert and oriented. She has no complaints. Her family is at the bedside. Focused Exam Lactate Level 08/17/22 07:34: Lactic Acid Level 0.60 08/18/22 16:15: Lactic Acid Level 3.21*H 08/18/22 20:14: Lactic Acid Level 1.77 Objective Exam Vital Signs Vital Signs Date Time Temp Pulse Resp B/P (MAP) Pulse Ox O2 Delivery O2 Flow Rate FiO2 08/19/22 16:38 97 NIV Bilevel 45.00 08/19/22 14:16 85 20 08/19/22 14:00 132/64 (86) 08/19/22 11:44 36.6 08/18/22 08:00 100 Capillary Refill : Less Than 3 Seconds General Appearance: No Apparent Distress, Obese Respiratory: Lungs Clear, No Respiratory Distress, Other (wearing BiPAP) Cardiovascular: Regular Rate, Rhythm, No Murmur Gastrointestinal: Normal Bowel Sounds, Soft Extremity: Normal Inspection, No Pedal Edema Neurologic/Psychiatric: Alert, Oriented x3, Normal Mood/Affect Skin: Normal Color, Warm/Dry Results/Procedures Lab Laboratory Tests 08/19/22 03:54 Patient resulted labs reviewed. Imaging: Reviewed Imaging Report Assessment/Plan Assessment and Plan Assess & Plan/Chief Complaint Acute respiratory failure with hypoxia and hypercapnia Severe sepsis due to pneumonia Lactic acidosis Acute kidney injury Remains on BiPAP Chest xray consistent with pneumonia Decrease steroids MAT protocol TeleICU following Therapeutic Lovenox Hypertension Continue home meds BP improved T2DM with hyperglycemia Increase Levemir Sliding scale B Debility PT/OT Critical Care Critically Ill Patient Diagnosis/Problems Diagnosis/Problems (1) Acute respiratory failure with hypoxia and hypercapnia Status: Acute (2) Severe sepsis Status: Acute (3) PNA (pneumonia) Status: Acute (4) CARY (acute kidney injury) Status: Acute (5) Lactic acidosis Status: Acute (6) HTN (hypertension) Status: Acute (7) T2DM (type 2 diabetes mellitus) Status: Acute Qualifiers: Diabetes mellitus terminal manager insulin use: with terminal manager use Diabetes mellitus complication status: with hyperglycemia Qualified Codes: E11.65 - Type 2 diabetes mellitus with hyperglycemia; Z79.4 - intermediate (current) use of insulin (8) Debility Status: Acute (9) Obesity Status: Chronic DAVID LOPEZ MD Aug 19, 2022 16:44
[2022-08-19 18:38] VITALS: BP 150/66
[2022-08-19] MEDS: doxAzosin 1 MG (CARDURA) TAB PO SCH (21:04)
[2022-08-19] MEDS: SERTRALINE 100 MG (ZOLOFT) TAB PO SCH (21:05)
[2022-08-19] MEDS: ENOXAPARIN 120 MG/0.8 ML (LOVENOX) SQ SCH (21:13)
[2022-08-19 22:14] VITALS: BP 142/91
[2022-08-20 02:22] VITALS: BP 118/55
[2022-08-20] MEDS: RT-ALBUTEROL/IPRATROPIUM 3 ML (DUONEB) VIAL INH SCH ×5 (02:22→21:05)
[2022-08-20 03:36] LABS: HEMATOCRIT 25 % (35-52); HEMOGLOBIN 7.6 g/dL (11.5-16.0); MEAN CORPUSCULAR HEMOGLOBIN 31 pg (25-34); MEAN CORPUSCULAR HGB CONC 30 g/dL (32-36); MEAN CORPUSCULAR VOLUME 102 fL (80-99); MEAN PLATELET VOLUME 10.3 fL (9.0-12.2); PLATELET COUNT 178 10^3/uL (130-400)
[2022-08-20 03:51] LABS: POTASSIUM 4.4 MMOL/L (3.6-5.0)
[2022-08-20 03:52] LABS: CALCIUM 9.4 MG/DL (8.5-10.1)
[2022-08-20 03:57] LABS: CREATININE SERUM 2.09 MG/DL (0.60-1.30); PHOSPHORUS 2.2 MG/DL (2.3-4.7)
[2022-08-20 03:59] LABS: MAGNESIUM 1.8 MG/DL (1.6-2.4)
[2022-08-20] MEDS: LACTATED RINGERS 1,000 ML IV SCH ×2 (04:03→15:35)
[2022-08-20] MEDS: POTASSIUM CL 10MEQ/50ML IVPB 50 ML IV SCH (04:24)
[2022-08-20] MEDS: KCL 20 MEQ TAB (K-DUR) PO SCH (04:25)
[2022-08-20] MEDS: inSUlin ASPART (NovoLOG) 1 UNIT/0.01 ML (CHARGE PER UNIT) SC SCH ×4 (04:25→20:24)
[2022-08-20] MEDS: hydrALAZINE (APRESOLINE) 25 MG TAB PO SCH ×3 (04:25→20:25)
[2022-08-20] MEDS: MAGNESIUM 1 GM/100 ML IVPB 100 ML IV SCH (04:25)
[2022-08-20] MEDS ORDERED: MAGNESIUM 1 GM/100 ML IVPB 100 ML IV ONE (05:00)
[2022-08-20 07:28] VITALS: BP 117/65
--- NOTE | 2022-08-20 07:47 | Physical Therapy Progress Note ---
Therapy Progress Note Patient remains on BiPap but more alert. Patient refused PT intervention on this date. RN notified. 1 ref PAUL REYES PT Aug 20, 2022 07:47
--- NOTE | 2022-08-20 07:55 | Tele-ICU Progress Note ---
Subjective Date Seen by a Provider: Aug 20, 2022 Time Seen by a Provider: 07:51 Subjective/Events-last exam (Tele-ICU Physician , Progress Note ) Service provided via interactive audio and video telecommunications E-CARE system to a patient admitted to ICU bed in [facility]. Patient is seen today due to persistent need of ICU care Available chart/ vitals / labs / Images reviewed Video assessment done using teleICU camera, rest of exam as per RN Discussed with RN Events overnight : Afebrile hemodynamically stable Respiratory - HFNC I/O = lowe Pressors- none A/P Acute on chronic hypoxic and hepercarbic resp failure: Improving. CXR with overall improvement. -Cont to wean Oxygen as tolerated. AECOPD, severe br-spasm - SM 100 q6 -nebs Possible PNA / LRTI - cont abx CARY - Continues to rise. - oliguria - cont IVF for now , consider diuretics if worsenig O2 needs Encephalopaty - slow improvement Nutrition - NPO- on NIPPV 2 days DM II - ISS Bradyarrythmias - check lytes Lines : periph , (Central Line Necessity Reviewed) Lowe: OG: Nutrition: Analgesia: Anxiety/ delirium VTE Prophylaxis: kasi 120 bid Stress Ulcer Prophylaxis: ppi Plans in collaboration with bedside consultants and IM MDs. Discussed with RN to reach out if any questions or concerns Case and care daily discussed on multidisciplinary rounds ( RN, PharmD, Hand Sewer , Respiratory Therapy, spring floor service worker ) A total of 25 minutes of critical care time was devoted to this patient today, required to treat and/or prevent further deterioration of critical care condition ( as above) . I am remotely monitoring this patient from another state. I am unable to do the bedside exam, and history/physical and pertinent information is taken from other notes in the computer and bedside staff. Sepsis Event Evaluation Height, Weight, BMI Height: 5'3.00" Weight: 221lbs. 3.0oz. 100.271467ym; 38.65 BMI Method: Focused Exam Lactate Level 08/18/22 16:15: Lactic Acid Level 3.21*H 08/18/22 20:14: Lactic Acid Level 1.77 Exam Exam Patient acknowledged, consented, and participated in this virtual visit which was conducted using real time audio/video Vital Signs Date Time Temp Pulse Resp B/P (MAP) Pulse Ox O2 Delivery O2 Flow Rate FiO2 08/20/22 07:28 75 20 50.00 08/20/22 06:00 71 129/59 (82) NIV Bilevel 40.00 08/20/22 05:30 74 122/56 (78) 89 NIV Bilevel 40.00 08/20/22 05:00 75 139/65 (98) 95 NIV Bilevel 40.00 08/20/22 04:00 79 140/67 (91) 96 NIV Bilevel 40.00 08/20/22 04:00 96 NIV Bilevel 40.00 08/20/22 04:00 36.4 08/20/22 03:00 78 122/58 (79) 95 NIV Bilevel 40.00 08/20/22 02:22 74 20 94 40.00 08/20/22 02:00 75 118/55 (79) 92 NIV Bilevel 40.00 08/20/22 01:00 82 08/20/22 01:00 82 119/65 (80) 93 NIV Bilevel 40.00 08/20/22 00:09 81 134/82 (99) 95 NIV Bilevel 40.00 08/20/22 00:00 85 157/80 (116) 96 NIV Bilevel 40.00 08/20/22 00:00 36.6 08/20/22 00:00 97 NIV Bilevel 40.00 08/19/22 23:00 75 122/57 (78) 93 NIV Bilevel 40.00 08/19/22 22:30 80 116/58 (80) 94 NIV Bilevel 40.00 08/19/22 22:14 79 20 94 40.00 08/19/22 22:00 73 142/91 (108) 95 NIV Bilevel 40.00 08/19/22 21:00 75 115/55 (79) 92 NIV Bilevel 40.00 08/19/22 20:30 76 7 118/59 (79) 92 NIV Bilevel 40.00 08/19/22 20:00 75 20 104/50 (72) 93 NIV Bilevel 40.00 08/19/22 20:00 36.4 NIV Bilevel 40.00 08/19/22 19:49 96 NIV Bilevel 40.00 08/19/22 19:30 80 21 131/56 (82) 93 NIV Bilevel 40.00 08/19/22 19:00 82 08/19/22 18:38 80 21 97 40.00 08/19/22 18:00 80 24 104/52 (69) 97 NIV Bilevel 40.00 08/19/22 17:52 36.9 08/19/22 17:38 99 NIV Bilevel 40.00 08/19/22 17:00 80 20 115/48 (70) 97 NIV Bilevel 45.00 08/19/22 16:38 97 NIV Bilevel 45.00 08/19/22 16:30 95 NIV Bilevel 50.00 08/19/22 16:00 96 21 115/55 (75) 96 Vapotherm 20.00 40.00 08/19/22 15:48 91 Vapotherm 20.00 40.00 08/19/22 15:00 91 18 131/61 (84) 90 NIV Bilevel 50.00 08/19/22 14:16 85 20 92 50.00 08/19/22 14:00 61 12 132/64 (86) 91 NIV Bilevel 50.00 08/19/22 13:47 99 NIV Bilevel 50.00 08/19/22 13:00 80 18 123/57 (79) 96 NIV Bilevel 60.00 08/19/22 12:37 86 08/19/22 12:15 99 NIV Bilevel 70.00 08/19/22 12:00 82 24 125/59 (81) 99 NIV Bilevel 60.00 08/19/22 11:44 36.6 08/19/22 11:00 87 15 118/57 (77) 95 NIV Bilevel 60.00 08/19/22 10:56 99 NIV Bilevel 60.00 08/19/22 10:45 60.00 08/19/22 10:33 85 20 96 65.00 08/19/22 10:00 85 20 98/58 (71) 90 NIV Bilevel 70.00 08/19/22 09:00 87 15 137/70 (92) 98 NIV Bilevel 70.00 08/19/22 08:00 84 21 135/54 (81) 100 NIV Bilevel 70.00 08/19/22 08:00 99 NIV Bilevel 70.00 08/19/22 07:51 36.3 I & O 08/20/22 07:00 Intake Total 1207.5 ml Output Total 435 ml Balance 772.5 ml Height & Weight Height: 5'3.00" Weight: 221lbs. 3.0oz. 100.685672bd; 38.65 BMI Method: General Appearance: No Apparent Distress, Obese HEENT: PERRL/EOMI, Normal ENT Inspection, Other (Moist mucous membranes) Neck: Normal Inspection; No JVD Respiratory: Lungs Clear, No Respiratory Distress, Other (wearing BiPAP) Cardiovascular: Regular Rate, Rhythm, No Murmur Capillary Refill: Less Than 3 Seconds Extremity: Normal Inspection, No Pedal Edema Neurologic/Psychiatric: Alert, Oriented x3, Normal Mood/Affect Skin: Normal Color, Warm/Dry Results Lab Laboratory Tests 08/18/22 16:15 08/19/22 03:54 08/20/22 03:30 Assessment/Plan Assessment/Plan . JOSEPH CEDILLO MD Aug 20, 2022 07:55
[2022-08-20] MEDS: predniSONE 20 MG TAB PO SCH (08:11)
[2022-08-20] MEDS: PANTOPRAZOLE 40 MG (PROTONIX) TAB PO SCH (08:12)
[2022-08-20] MEDS: guaiFENesin (MUCINEX) 600 MG TAB PO SCH ×2 (08:12→20:25)
[2022-08-20] MEDS: AZITHROMYCIN INJECTION 500 MG in NS (IVPB) 250 ML IV SCH (08:15)
--- NOTE | 2022-08-20 08:23 | Diagnostic Imaging Report ---
INDICATION: Respiratory distress Frontal chest obtained at 0514 a.m. and compared to 08/18/2022. There is cardiomegaly. There appears to be improvement in the right basilar infiltrate compared to the prior study. Left lung is clear. There is no pneumothorax or pleural fluid. IMPRESSION: Improving right basilar infiltrate compared to the prior study with no new abnormality. Dictated by: Dictated on workstation # [id number]
[2022-08-20] MEDS: MICONAZOLE 2% POWDER (DESENEX AF) 90 GM TOP SCH ×2 (10:01→20:25)
[2022-08-20] MEDS: cefTRIAXone IV/IM 1,000 MG in NS (IVPB) 50 ML IV SCH (11:15)
[2022-08-20] MEDS: guaiFENesin/DM (ROBITUSSIN DM) 10 ML UDC PO PRN (11:16)
[2022-08-20 13:22] LABS: PARAINFLU 1 PCR Not Detected (Not Detected); PARAINFLU 2 PCR Not Detected (Not Detected); RSV PCR TEST Not Detected (Not Detected)
--- NOTE | 2022-08-20 13:31 | Occ Therapy Progress Note ---
Therapy Progress Note Patient remains on BiPap but more alert. Patient refused OT intervention on this date. OT will continue to monitor YOSELYN JONES OT Aug 20, 2022 13:31
--- NOTE | 2022-08-20 16:16 | Progress Note - Hospitalist ---
Subjective HPI/CC On Admission Date Seen by Provider: Aug 20, 2022 Time Seen by Provider: 09:25 Pt is an 82yoCF who presented to the ER due to cough, fever, and hypoxia. She is pretty sleepy and her daughter in law is at bedside and provides most of the history. Patient just states she doesn't feel well. Symptoms started 08/15 with a cough but she had been outside that day so they didn't think much of it. She had a rough night that evening but was doing better and "perkier" per family yesterday and they thought she was improving. Apaprently she had a rough night per nursing staff again last night and this morning was found to be hypoxia at 86% on room air (does not typically wear oxygen) and was febrile so sent to the ER for evaluation. She was worked up for pna but CXR was negative and she does not have a leukocytosis. Due to hypoxia though she was admitted for further management. Subjective/Events-last exam She is feeling better. She is still short of breath. She denies pain. She has family at the bedside. Focused Exam Lactate Level 08/18/22 16:15: Lactic Acid Level 3.21*H 08/18/22 20:14: Lactic Acid Level 1.77 Objective Exam Vital Signs Vital Signs Date Time Temp Pulse Resp B/P (MAP) Pulse Ox O2 Delivery O2 Flow Rate FiO2 08/20/22 15:00 87 163/76 (108) 96 High Flow N/C 08/20/22 12:03 2.00 08/20/22 10:28 40 08/20/22 08:00 37.1 08/20/22 07:28 20 Capillary Refill : Less Than 3 Seconds General Appearance: No Apparent Distress, Obese Respiratory: No Respiratory Distress; No Crackles; Decreased Breath Sounds Cardiovascular: Regular Rate, Rhythm, No Murmur Gastrointestinal: Normal Bowel Sounds, Soft Extremity: Normal Inspection, No Pedal Edema Neurologic/Psychiatric: Alert, Normal Mood/Affect Skin: Normal Color, Warm/Dry Results/Procedures Lab Laboratory Tests 08/20/22 03:30 Patient resulted labs reviewed. Imaging: Reviewed Imaging Report Assessment/Plan Assessment and Plan Assess & Plan/Chief Complaint Acute respiratory failure with hypoxia and hypercapnia Severe sepsis due to pneumonia Parainfluenza infection Lactic acidosis, resolved Acute kidney injury Doing well on minimal Vapotherm, weaning as able Chest xray consistent with pneumonia Rocephin and Azithromycin Viral panel positive for parainfluenza Prednisone IV fluids MAT protocol TeleICU following Therapeutic Lovenox Hypertension Continue home meds BP improved T2DM with hyperglycemia Levemir Sliding scale insulin Debility PT/OT Critical Care Critically Ill Patient Diagnosis/Problems Diagnosis/Problems (1) Acute respiratory failure with hypoxia and hypercapnia Status: Acute (2) Severe sepsis Status: Acute (3) PNA (pneumonia) Status: Acute Qualifiers: Pneumonia type: due to unspecified organism Laterality: right Lung location: lower lobe of lung Qualified Codes: J18.9 - Pneumonia, unspecified organism (4) CARY (acute kidney injury) Status: Acute (5) Lactic acidosis Status: Resolved Resolution Date/Time: 08/20/22 @ 16:18 (6) HTN (hypertension) Status: Acute (7) T2DM (type 2 diabetes mellitus) Status: Acute Qualifiers: Diabetes mellitus mcc insulin use: with termite technician use Diabetes mellitus complication status: with hyperglycemia Qualified Codes: E11.65 - Type 2 diabetes mellitus with hyperglycemia; Z79.4 - halfway (current) use of insulin (8) Debility Status: Acute (9) Obesity Status: Chronic (10) Parainfluenza virus pneumonia Status: Acute DAVID LOPEZ MD Aug 20, 2022 16:16
[2022-08-20] MEDS: SERTRALINE 100 MG (ZOLOFT) TAB PO SCH (20:25)
[2022-08-20] MEDS: ENOXAPARIN 120 MG/0.8 ML (LOVENOX) SQ SCH (20:25)
[2022-08-20] MEDS: doxAzosin 1 MG (CARDURA) TAB PO SCH (20:25)
[2022-08-21 04:58] LABS: HEMATOCRIT 23 % (35-52); HEMOGLOBIN 7.3 g/dL (11.5-16.0); MEAN CORPUSCULAR HEMOGLOBIN 31 pg (25-34); MEAN CORPUSCULAR HGB CONC 32 g/dL (32-36); MEAN CORPUSCULAR VOLUME 96 fL (80-99); MEAN PLATELET VOLUME 10.2 fL (9.0-12.2); PLATELET COUNT 204 10^3/uL (130-400); WHITE BLOOD COUNT 10.9 10^3/uL (4.3-11.0)
[2022-08-21 05:10] LABS: POTASSIUM 4.3 MMOL/L (3.6-5.0)
[2022-08-21 05:11] LABS: CALCIUM 9.4 MG/DL (8.5-10.1)
[2022-08-21 05:16] LABS: CREATININE SERUM 1.68 MG/DL (0.60-1.30); PHOSPHORUS 1.8 MG/DL (2.3-4.7)
[2022-08-21] MEDS: LACTATED RINGERS 1,000 ML IV SCH (05:38)
[2022-08-21] MEDS: MAGNESIUM 1 GM/100 ML IVPB 100 ML IV SCH (05:39)
[2022-08-21] MEDS: KCL 20 MEQ TAB (K-DUR) PO SCH (05:39)
[2022-08-21] MEDS: inSUlin ASPART (NovoLOG) 1 UNIT/0.01 ML (CHARGE PER UNIT) SC SCH ×4 (05:39→21:48)
[2022-08-21] MEDS: POTASSIUM CL 10MEQ/50ML IVPB 50 ML IV SCH (05:39)
[2022-08-21] MEDS: hydrALAZINE (APRESOLINE) 25 MG TAB PO SCH ×3 (06:59→21:47)
[2022-08-21] MEDS: predniSONE 20 MG TAB PO SCH ×2 (06:59→09:40)
[2022-08-21] MEDS: RT-ALBUTEROL/IPRATROPIUM 3 ML (DUONEB) VIAL INH SCH ×3 (07:09→14:43)
--- NOTE | 2022-08-21 09:11 | Tele-ICU Progress Note ---
Subjective Date Seen by a Provider: Aug 21, 2022 Time Seen by a Provider: 09:09 Subjective/Events-last exam (Tele-ICU Physician , Progress Note ) Service provided via interactive audio and video telecommunications E-CARE system to a patient admitted to ICU bed in [facility]. Patient is seen today due to persistent need of ICU care She is a 82 yr old CF with pmhx of HTN, T2DM, HLD presented with c/o low grade fever, cough, congestion, and shortness of breathstarting 08/15/22. yesterday she was found to hypoxic and wheezing in ED requiring O2. cxr is clear. wbc is normal. she is admitted to medical floor and started treatment with neb treatments and steroids in addition to supplemental oxyegen. early this am she spiked temp. she is requiring more oxygen and WOB is increased. Hence she is transferred to ICU and placed on BIPAP. consulted tele icu and I have discussed with Dr. Saldana. Video visit made and also Discussed with INDUSTRIAL RADIOGRAPHER. Resporetedly she is markedly congested and wheezing.. no hx of cp, or copd. Fully vaccinated for COVID-19 and influenza. Available chart/ vitals / labs / Images reviewed Video assessment done using teleICU camera, rest of exam as per RN Discussed with RN Events overnight : Afebrile hemodynamically stable Respiratory - 70 % I/O = folwy Drips: she pulled out ivs. currently not receiving ivf Pressors- no Hospital course: A/P Acute on chronic hypoxic and hepercarbic resp failure improved significantly O2. 2l N/C. O2 SAT 90% AECOPD, severe br-spasm IMPROVED - prednisone 40 mg QD -nebs Possible PNA / LRTI - cont abx , cx no acute infiltrates CARY - improving with Ctr 1.68 today - oliguria improving - cont IVF for now if she allows iv insertion Encephalopaty - slow improvement Nutrition - po as tolerated DM II - ISS Bradyarrythmias - check lytes Lines : peripf , (Central Line Necessity Reviewed) Castellanos: OG: Nutrition: Analgesia: Anxiety/ delirium VTE Prophylaxis: kasi 120 bid Stress Ulcer Prophylaxis: ppi Plans in collaboration with bedside consultants and IM MDs. Discussed with RN to reach out if any questions or concerns Case and care daily discussed on multidisciplinary rounds ( RN, PharmD, Line Fixer , Respiratory Therapy, licensed master social worker ) A total of 25 minutes of critical care time was devoted to this patient today, required to treat and/or prevent further deterioration of critical care condition ( as above ) . Sepsis Event Evaluation Height, Weight, BMI Height: 5'3.00" Weight: 221lbs. 3.0oz. 100.527481zd; 38.65 BMI Method: Focused Exam Lactate Level 08/18/22 16:15: Lactic Acid Level 3.21*H 08/18/22 20:14: Lactic Acid Level 1.77 Exam Exam Patient acknowledged, consented, and participated in this virtual visit which was conducted using real time audio/video Vital Signs Date Time Temp Pulse Resp B/P (MAP) Pulse Ox O2 Delivery O2 Flow Rate FiO2 08/21/22 08:00 78 187/78 (114) 92 Nasal Cannula 2.00 08/21/22 07:37 36.7 08/21/22 07:22 76 08/21/22 07:15 78 178/76 (110) 92 Nasal Cannula 2.00 08/21/22 06:00 78 Nasal Cannula 2.00 08/21/22 05:00 75 180/80 (113) 91 Nasal Cannula 2.00 08/21/22 04:49 78 08/21/22 04:00 164/63 (96) Nasal Cannula 2.00 08/21/22 04:00 94 High Flow N/C 2.00 08/21/22 04:00 36.8 08/21/22 03:00 78 162/71 (101) Nasal Cannula 2.00 08/21/22 02:36 Nasal Cannula 2.00 08/21/22 02:00 89 157/68 (97) Nasal Cannula 2.00 08/21/22 01:00 85 161/64 (96) 90 Nasal Cannula 2.00 08/21/22 01:00 85 08/21/22 00:00 87 159/77 (101) 91 Nasal Cannula 2.00 08/20/22 23:59 94 High Flow N/C 2.00 08/20/22 23:40 82 141/82 (89) 92 Nasal Cannula 2.00 08/20/22 23:33 80 131/104 (113) 90 Nasal Cannula 2.00 08/20/22 23:16 Room Air 08/20/22 23:00 Nasal Cannula 2.00 08/20/22 22:00 101 93 Nasal Cannula 2.00 08/20/22 21:00 97 163/82 (101) 94 Nasal Cannula 2.00 08/20/22 20:40 37.0 08/20/22 20:07 61 171/89 (124) 93 Nasal Cannula 2.00 08/20/22 20:00 94 High Flow N/C 2.00 08/20/22 20:00 94 193/92 (149) 93 Nasal Cannula 2.00 08/20/22 19:00 96 90 Nasal Cannula 2.00 08/20/22 19:00 96 08/20/22 18:59 95 174/107 (129) 89 Nasal Cannula 2.00 08/20/22 18:00 92 188/76 (128) 92 High Flow N/C 08/20/22 17:45 86 08/20/22 17:30 86 179/81 (110) 94 08/20/22 17:00 88 177/80 (113) 92 High Flow N/C 08/20/22 16:45 89 90 08/20/22 16:30 78 172/86 (99) 93 08/20/22 16:00 93 High Flow N/C 2.00 08/20/22 16:00 91 170/93 (130) 92 High Flow N/C 08/20/22 15:45 89 92 08/20/22 15:00 87 163/76 (108) 96 High Flow N/C 08/20/22 14:00 96 159/67 (98) 96 High Flow N/C 08/20/22 13:30 101 155/79 (99) 91 High Flow N/C 08/20/22 13:03 87 08/20/22 13:00 89 156/75 (91) 95 High Flow N/C 08/20/22 12:30 90 153/71 (113) 94 High Flow N/C 08/20/22 12:03 93 High Flow N/C 2.00 08/20/22 12:00 92 158/68 (107) 93 High Flow N/C 08/20/22 11:52 94 High Flow N/C 2.00 08/20/22 11:00 85 138/69 (92) 97 NIV Bilevel 40.00 08/20/22 10:28 95 Vapotherm 20.00 40 08/20/22 10:00 80 135/121 (126) 91 NIV Bilevel 40.00 I & O 08/21/22 07:00 Intake Total 1137.5 ml Output Total 1500 ml Balance -362.5 ml Height & Weight Height: 5'3.00" Weight: 221lbs. 3.0oz. 100.103400sa; 38.65 BMI Method: General Appearance: No Apparent Distress, Obese HEENT: PERRL/EOMI, Normal ENT Inspection, Other (Moist mucous membranes) Neck: Normal Inspection; No JVD Respiratory: No Respiratory Distress; No Crackles; Decreased Breath Sounds Cardiovascular: Regular Rate, Rhythm, No Murmur Capillary Refill: Less Than 3 Seconds Extremity: Normal Inspection, No Pedal Edema Neurologic/Psychiatric: Alert, Normal Mood/Affect Skin: Normal Color, Warm/Dry Results Lab Laboratory Tests 08/20/22 03:30 08/21/22 04:25 Assessment/Plan Assessment/Plan as above Critical Care: Critically Ill Patient Time spent with patient (mins): 25 SURY MARCUS MD Aug 21, 2022 09:11
[2022-08-21] MEDS ORDERED: PANTOPRAZOLE 40 MG (PROTONIX) TAB PO SCH (09:30)
[2022-08-21] MEDS ORDERED: POT PHOS/NA PHOS (K-PHOS NEUTRAL) PO NR (09:30)
[2022-08-21] MEDS ORDERED: CEFDINIR 300 MG (OMNICEF) CAP PO NR (09:30)
[2022-08-21] MEDS: AZITHROMYCIN 250 MG TAB (ZITHROMAX) PO SCH (09:39)
[2022-08-21] MEDS: amLODIPine 10 MG (NORVASC) TAB PO SCH (09:40)
[2022-08-21] MEDS: guaiFENesin (MUCINEX) 600 MG TAB PO SCH ×2 (09:40→21:44)
[2022-08-21] MEDS: MICONAZOLE 2% POWDER (DESENEX AF) 90 GM TOP SCH ×2 (09:42→21:44)
[2022-08-21] MEDS: LETROZOLE 2.5 MG (FEMARA) TAB PO SCH (09:46)
[2022-08-21 11:51] VITALS: BP 129/71
--- NOTE | 2022-08-21 14:19 | Occupational Therapy Eval ---
OT Evaluation-General/PLF Medical Diagnosis Admission Date Aug 17, 2022 at 11:01 Medical Diagnosis: acute respiratory hypoxia Onset Date: Aug 17, 2022 Therapy Diagnosis Therapy Diagnosis: weakness, debility Height/Weight Height (Feet): 5 Height (Inches): 3.00 Weight (Pounds): 221 Weight (Ounces): 3.0 Precautions Precautions/Isolations: Fall Prevention, Standard Precautions Weight Bear Status Weight Bearing Restriction: Weight Bearing/Tolerated Referral Referral Reason: Evaluation/Treatment Medical History Pertinent Medical History: CVA, DM, HTN, OA, Renal Insufficiency Additional Medical History 82-year-old woman presents to the emergency room from [facility] via EMS with concerns about fever, wet cough, diaphoresis, and decreased alertness over the past 2 days. Temperature for EMS was 100.2. She is requiring 3 L nasal cannula to keep her in the mid 90s on oxygen saturations. She does not normally require supplemental oxygen. Patient is alert to person, place, and age, but seems to be a fairly poor historian. Her responses to questions are delayed and sluggish. She denies any pain but has tenderness to the lower extremities when palpated. She does seem to have some lower extremity edema, although the chronicity of the edema is not known. It is not known if she has received her morning medications or any Tylenol. She reports some nausea. She is hypertensive on arrival and has rhonchi consistent with upper airway mucus as well as wheezes throughout on exam. She is a patient of Dr. SANDHU and has a DNR order. Current History Transferred from ICU to four floor. Per reports patient has refused treatment, pulled IVs and taken 02 NC off. Social History Home: Jail ([facility]) Current Living Status: Alone Entry Into Home: Level Entry ADL-Prior Level of Function SCALE: Activities may be completed with or without assistive devices. 6-Stbkykpapv-mflzdbl completes the activity by him/herself with no assistance from a helper. 5-Set-up or Clean-up Assistance-helper sets up or cleans up; patient completes activity. [place] assists only prior to or following the activity. 4-Supervision or Touching Assistance-helper provides verbal cues and/or touching/steadying and/or contact guard assistance as patient completes activity. Assistance may be provided throughout the activity or intermittently. 3-Partial/Moderate Assistance-helper does LESS THAN HALF the effort. [place] lifts, holds or supports trunk or limbs, but provides less than half the effort. 2-Substantial/Maximal Assistance-helper does MORE THAN HALF the effort. [place] lifts or holds trunk or limbs and provides more than half the effort. 7-Vtlpolpfy-ezcplr does ALL the effort. Patient does none of the effort to complete the activity. Or, the assistance of 2 or more helpers is required for the patient to complete the activity. If activity was not attempted, code reason: 7-Patient Refused. 9-Not Applicable-not attempted and the patient did not perform the activity before the current illness, exacerbation or injury. 10-Not Attempted due to Environmental Limitations-(lack of equipment, weather restraints, etc.). 88-Not Attempted due to Medical Conditions or Safety Concerns. Self Care: Needed Some Help Functional Cognition: Needed Some Help DME/Equipment Comments Patients poor historian and is unable to report last time ambulated or self pro pelled WC. Patient does present w/ PU dressing care n place on B heels and buttocks OT Current Status Subjective On arrival patient is Bowel incont and OT request s assistance form PCT. Max x 2 rolling and 50 % command following Mental Status/Objective Patient Orientation: Person Provides little PLOF information Attachments: Castellanos Catheter, Oxygen (removes x 2 durring session) Current Upper Extremity ROM Requires attention to AROM RUE. Patient is slow to respond to movement commands Upper Extremity Strength 3/5 grossly LE tender to touch and position ADL-Treatment ADL-Current Patient is currently dependent to moderate assist for all ADLS Oral Hygiene (QC): 4 Shower/Bathe Self (QC): 88 Upper Body Dressing (QC): 2 Lower Body Dressing (QC): 1 On/Off Footwear (QC): 1 Toileting Hygiene (QC): 1 Patient had been NPO in ICU Education OT Patient Education: Correct positioning, Modified ADL techniques, Progress toward Goal/Update tx plan, Purpose of tx/functional activities, Reviewed precautions, Rehab process, Safety issues, Use of adapted equipment Teaching Recipient: Patient Teaching Methods: Discussion Response to Teaching: Reinforcement Needed OT Assisted Goals Assisted Goals Eating (QC): 6 Oral Hygiene (QC): 5 Toileting Hygiene (QC): 2 Shower/Bathe Self (QC): 2 Upper Body Dressing (QC): 4 Lower Body Dressing (QC): 2 On/Off Footwear (QC): 3 1=Demonstrate adherence to instructed precautions during ADL tasks. 2=Patient will verbalize/demonstrate understanding of assistive devices/modifications for ADL. 3=Patient will improve strength/tolerance for activity to enable patient to perform ADL's. OT Education/Plan Problem List/Assessment Assessment: Decreased Activ Tolerance, Decreased Safety Aware, Decreased UE Strength, Dependent Transfers, Impaired Bed Mobility, Impaired Coordination, Impaired Funct Balance, Impaired Self-Care Skills, Restricted Funct UE ROM Discharge Recommendations Plan/Recommendations: Continue POC Treatment Plan/Plan of Care Treatment,Training & Education: Yes Patient would benefit from OT for education, treatment and training to promote independence in ADL's, mobility, safety and/or upper extremity function for ADL's. Plan of Care: ADL Retraining, Cognitive Retraining, Concurrent Therapy, Functional Mobility, Group Exercise/Act as Ind, UE Funct Exercise/Act Treatment Duration: Aug 24, 2022 Frequency: 3 times per week (3-5 times per week) Estimated Hrs Per Day: .25 hour per day Agreement: Yes Rehab Potential: Guarded Time Start Time: 14:00 Stop Time: 14:20 DATE: Aug 21, 2022 Total Time Billed (hr/min): 20 Billed Treatment Time EVM 20 min YOSELYN JONES OT Aug 21, 2022 14:19
--- NOTE | 2022-08-21 15:28 | Physical Therapy Evaluation ---
PT Evaluation-General Medical Diagnosis Admission Date Aug 17, 2022 at 11:01 Medical Diagnosis: acute respiratory hypoxia Onset Date: Aug 17, 2022 Therapy Diagnosis Therapy Diagnosis: Gait deficit, strength deficit Height/Weight Height (Feet): 5 Height (Inches): 3.00 Weight (Pounds): 221 Weight (Ounces): 3.0 Precautions Precautions/Isolations: Fall Prevention, Standard Precautions Weight Bear Status Right Lower Extremity: Right Full Weight Bearing Left Lower Extremity: Left Full Weight Bearing Referral Physician: Dr. Saldana Reason for Referral: Evaluation/Treatment Medical History Pertinent Medical History: CVA, DM, HTN, OA, Renal Insufficiency Social History Home: [facility] Current Living Status: Alone Entry Into Home: Level Entry Prior Prior Level of Function SCALE: Activities may be completed with or without assistive devices. 7-Kcjnmfxozi-cztmjbf completes the activity by him/herself with no assistance from a helper. 5-Set-up or Clean-up Assistance-helper sets up or cleans up; patient completes activity. [place] assists only prior to or following the activity. 4-Supervision or Touching Assistance-helper provides verbal cues and/or touching/steadying and/or contact guard assistance as patient completes activity. Assistance may be provided throughout the activity or intermittently. 3-Partial/Moderate Assistance-helper does LESS THAN HALF the effort. [place] lifts, holds or supports trunk or limbs, but provides less than half the effort. 2-Substantial/Maximal Assistance-helper does MORE THAN HALF the effort. [place] lifts or holds trunk or limbs and provides more than half the effort. 3-Kunvpqzys-aaxleo does ALL the effort. Patient does none of the effort to complete the activity. Or, the assistance of 2 or more helpers is required for the patient to complete the activity. If activity was not attempted, code reason: 7-Patient Refused. 9-Not Applicable-not attempted and the patient did not perform the activity before the current illness, exacerbation or injury. 10-Not Attempted due to Environmental Limitations-(lack of equipment, weather restraints, etc.). 88-Not Attempted due to Medical Conditions or Safety Concerns. Bed Mobility: 3 Transfers (B,C,W/C): 3 Gait: 9 Stairs: 9 Wheelchair Mobility: 3 Indoor Mobility (Ambulation): Not [place] Stairs: Not Applicalbe Prior Devices Use: Manual wheelchair PT Evaluation-Current Subjective Patient lying supine in bed upon PT arrival, agreeable to treatment. Patient rates pain at 0/10 currently. Objective Patient Orientation: Person, Place, Time, Situation Attachments: Oxygen, IV ROM/Strength ROM Lower Extremities WFLs BLEs all planes Strength Lower Extremities 3/5 BLEs all planes Sensory Vision: Functional Hearing: Functional Sensation Right Lower Extremit: Impaired Sensation Left Lower Extremity: Impaired Transfers Roll Left to Right (QC): 1 Sit to Lying (QC): 1 Lying to Sitting/Side of Bed(Q: 1 Gait Does the Patient Walk?: No and Walking Goal NOT indicated Mode of Locomotion: Wheelchair Anticipated Mode of Locomotion: Wheelchair Balance Sitting Static: Poor Sitting Dynamic: Poor Assessment/Needs Patient total A for all bed mobility and transfers during evaluation. Patient requires A for all bed mobility and transfers prior to admission, however unsure the level. Patient demonstrates fair potential to demonstrate improved performance of bed mobility and transfers with skilled PT intervention, however given patient CLOF, if no improvement is seen within a few visits, she will be D/C from skilled PT treatment. Patient in bed post treatment with all needs met, nursing notified, call light in hand. Rehab Potential: Poor PT Intermediate Goals Intermediate Goals PT Intermediate Goals Time Frame: Sep 13, 2022 Roll Left & Right (QC): 3 Sit to Lying (QC): 3 Lying-Sitting on Side/Bed(QC): 3 Sit to Stand (QC): 2 Chair/Pod-zq-Igona Xfer(QC): 2 PT Plan Problem List Problem List: Activity Tolerance, Functional Strength, Safety, Balance, Transfer, Bed Mobility, ROM Treatment/Plan Treatment Plan: Continue Plan of Care Treatment Plan: Bed Mobility, Education, Functional Activity Odalys, Functional Strength, Group Therapy, Gait, Safety, Therapeutic Exercise, Transfers Treatment Duration: Sep 13, 2022 Frequency: 6 times per week Estimated Hrs Per Day: .25 hour per day Patient and/or Family Agrees t: Yes Safety Risks/Education Patient Education: Transfer Techniques Teaching Recipient: Patient Teaching Methods: Demonstration, Discussion Response to Teaching: Reinforcement Needed Time Time In: 1350 Time Out: 1410 DATE: Aug 21, 2022 Total Billed Treatment Time: 20 Total Billed Treatment Visit, ALYSSIA JIMENES PT Aug 21, 2022 15:28
[2022-08-21 16:24] VITALS: BP 169/70
[2022-08-21 20:01] VITALS: BP 159/89
--- NOTE | 2022-08-21 20:59 | Progress Note - Hospitalist ---
Subjective HPI/CC On Admission Date Seen by Provider: Aug 21, 2022 Time Seen by Provider: 09:05 Pt is an 82yoCF who presented to the ER due to cough, fever, and hypoxia. She is pretty sleepy and her daughter in law is at bedside and provides most of the history. Patient just states she doesn't feel well. Symptoms started 08/15 with a cough but she had been outside that day so they didn't think much of it. She had a rough night that evening but was doing better and "perkier" per family yesterday and they thought she was improving. Apaprently she had a rough night per nursing staff again last night and this morning was found to be hypoxia at 86% on room air (does not typically wear oxygen) and was febrile so sent to the ER for evaluation. She was worked up for pna but CXR was negative and she does not have a leukocytosis. Due to hypoxia though she was admitted for further management. Subjective/Events-last exam She is feeling better. She is still a bit short of breath. She denies pain. Objective Exam Vital Signs Vital Signs Date Time Temp Pulse Resp B/P (MAP) Pulse Ox O2 Delivery O2 Flow Rate FiO2 08/21/22 20:01 36.6 85 18 159/89 (112) 96 Nasal Cannula 2.00 08/20/22 10:28 40 Capillary Refill : Less Than 3 Seconds General Appearance: No Apparent Distress, Obese Respiratory: No Accessory Muscle Use, No Respiratory Distress, Crackles Cardiovascular: Regular Rate, Rhythm, No Murmur Gastrointestinal: Normal Bowel Sounds, Non Tender, Soft Extremity: Normal Inspection, No Pedal Edema Neurologic/Psychiatric: Alert, Normal Mood/Affect Skin: Normal Color, Warm/Dry Results/Procedures Lab Laboratory Tests 08/21/22 04:25 Patient resulted labs reviewed. Imaging: Reviewed Imaging Report Assessment/Plan Assessment and Plan Assess & Plan/Chief Complaint Acute respiratory failure with hypoxia and hypercapnia Severe sepsis due to pneumonia Parainfluenza infection Lactic acidosis, resolved Acute kidney injury Doing well on minimal Vapotherm, weaning as able Chest xray consistent with pneumonia Omnicef and Azithromycin Viral panel positive for parainfluenza Prednisone IV fluids MAT protocol Therapeutic Lovenox VQ scan Transfer to medical floor Anemia Hgb 7.3 Add on iron/B12/folate Hypertension Continue home meds BP improved T2DM with hyperglycemia Levemir Sliding scale insulin Debility PT/OT Diagnosis/Problems Diagnosis/Problems (1) Acute respiratory failure with hypoxia and hypercapnia Status: Acute (2) Severe sepsis Status: Acute (3) PNA (pneumonia) Status: Acute Qualifiers: Pneumonia type: due to unspecified organism Laterality: right Lung location: lower lobe of lung Qualified Codes: J18.9 - Pneumonia, unspecified organism (4) CARY (acute kidney injury) Status: Acute (5) Lactic acidosis Status: Resolved Resolution Date/Time: 08/20/22 @ 16:18 (6) HTN (hypertension) Status: Acute (7) T2DM (type 2 diabetes mellitus) Status: Acute 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
[2022-08-21] MEDS: doxAzosin 1 MG (CARDURA) TAB PO SCH (21:44)
[2022-08-21] MEDS: CEFDINIR 300 MG (OMNICEF) CAP PO SCH (21:44)
[2022-08-21] MEDS: SERTRALINE 100 MG (ZOLOFT) TAB PO SCH (21:47)
[2022-08-21] MEDS: ENOXAPARIN 120 MG/0.8 ML (LOVENOX) SQ SCH (21:48)
[2022-08-22] VITALS: BP 155/79
[2022-08-22 03:25] VITALS: BP 165/73
[2022-08-22 05:40] LABS: HEMATOCRIT 25 % (35-52); HEMOGLOBIN 7.9 g/dL (11.5-16.0); MEAN CORPUSCULAR HEMOGLOBIN 30 pg (25-34); MEAN CORPUSCULAR HGB CONC 32 g/dL (32-36); MEAN CORPUSCULAR VOLUME 94 fL (80-99); MEAN PLATELET VOLUME 10.2 fL (9.0-12.2); PLATELET COUNT 224 10^3/uL (130-400)
[2022-08-22 05:59] LABS: POTASSIUM 3.9 MMOL/L (3.6-5.0)
[2022-08-22 06:01] LABS: CALCIUM 9.7 MG/DL (8.5-10.1)
[2022-08-22 06:05] LABS: CREATININE SERUM 1.39 MG/DL (0.60-1.30)
[2022-08-22 06:07] LABS: MAGNESIUM 1.8 MG/DL (1.6-2.4)
[2022-08-22] MEDS: POTASSIUM CL 10MEQ/50ML IVPB 50 ML IV SCH (06:07)
[2022-08-22] MEDS: KCL 20 MEQ TAB (K-DUR) PO SCH (06:08)
[2022-08-22] MEDS: MAGNESIUM 1 GM/100 ML IVPB 100 ML IV SCH (06:09)
[2022-08-22] MEDS: inSUlin ASPART (NovoLOG) 1 UNIT/0.01 ML (CHARGE PER UNIT) SC SCH ×2 (06:09→10:49)
[2022-08-22] MEDS: hydrALAZINE (APRESOLINE) 25 MG TAB PO SCH ×2 (06:32→12:07)
[2022-08-22 07:57] VITALS: BP 162/76
[2022-08-22] MEDS: amLODIPine 10 MG (NORVASC) TAB PO SCH (08:53)
[2022-08-22] MEDS: predniSONE 20 MG TAB PO SCH (08:53)
[2022-08-22] MEDS: CEFDINIR 300 MG (OMNICEF) CAP PO SCH (08:53)
[2022-08-22] MEDS: AZITHROMYCIN 250 MG TAB (ZITHROMAX) PO SCH (08:53)
[2022-08-22] MEDS: guaiFENesin (MUCINEX) 600 MG TAB PO SCH (08:54)
[2022-08-22] MEDS: LETROZOLE 2.5 MG (FEMARA) TAB PO SCH (08:54)
[2022-08-22] MEDS: MICONAZOLE 2% POWDER (DESENEX AF) 90 GM TOP SCH (08:55)
[2022-08-22] MEDS ORDERED: ASPIRIN E.C. 81 MG (ECOTRIN) TAB PO SCH (09:00)
[2022-08-22] MEDS ORDERED: KCL 20 MEQ TAB (K-DUR) PO ONE (09:00)
[2022-08-22] MEDS ORDERED: PANTOPRAZOLE 40 MG (PROTONIX) TAB PO SCH (09:00)
[2022-08-22] MEDS ORDERED: ENOXAPARIN 120 MG/0.8 ML (LOVENOX) SQ SCH (09:00)
--- NOTE | 2022-08-22 09:08 | Diagnostic Imaging Report ---
Indication: Respiratory failure. Patient was administered 5.4 mCi technetium 99m MAA intravenously and imaging over the chest was performed in multiple obliquities. There is homogeneous perfusion to both lungs. No pleural-based perfusion defects are identified. IMPRESSION: Normal perfusion lung scan. Dictated by: Dictated on workstation # [id number]
[2022-08-22] MEDS ORDERED: CEFD300C3 PO (10:54)
--- NOTE | 2022-08-22 11:01 | Discharge Summary ---
Discharge Summary Reconcile Patient Problems Problems Reviewed?: Yes Hospital Course Hospital Course Date of Admission: Aug 17, 2022 at 11:01 Admission Diagnosis : Acute respiratory failure with hypoxia Family Physician/Provider: Emerson Odom DO Date of Discharge: 08/22/22 Discharge Diagnosis: Acute respiratory failure with hypoxia, sepsis due to pneumonia, parainfluenza pneumonia, CARY Hospital Course: Mariaa Mahoney is an 82 year old female who was admitted from [facility]cf with acute respiratory failure. She had no evidence of infection on arrival. She subsequently worsened and developed sepsis due to pneumonia. She was started on IV antibiotics. She had an CARY which responded to fluids. She also tested positive for parainfluenza virus. Her oxygen levels improved and she was on 2L at the time of discharge. She had a VQ scan which was negative for PE. She also had anemia which was stable. There was no sign of acute blood loss. Her iron, folate, and B12 were all within normal limits. She was debilitated and worked with therapy. She was discharged back to [facility] SNF in stable condition. Labs and Pending Lab Test: Laboratory Tests 08/21/22 16:28: Glucometer 172H 08/21/22 20:04: Glucometer 230H 08/22/22 05:06: White Blood Count 9.0, Red Blood Count 2.63L, Hemoglobin 7.9L, Hematocrit 25L, Mean Corpuscular Volume 94, Mean Corpuscular Hemoglobin 30, Mean Corpuscular Hemoglobin Concent 32, Red Cell Distribution Width 12.5, Platelet Count 224, Mean Platelet Volume 10.2, Sodium Level 142, Potassium Level 3.9, Chloride Level 111H, Carbon Dioxide Level 25, Anion Gap 6, Blood Urea Nitrogen 35H, Creatinine 1.39H, Estimat Glomerular Filtration Rate 38, BUN/Creatinine Ratio 25, Glucose Level 136H, Calcium Level 9.7, Magnesium Level 1.8 08/22/22 05:35: Glucometer 168H 08/22/22 10:29: Glucometer 147H Microbiology 08/18/22 MRSA Screen - Final, Complete MRSA not isolated 08/17/22 Blood Culture - Preliminary, Resulted No growth 08/17/22 Urine Culture - Final, Complete NO GROWTH Home Meds Active Cefdinir 300 Mg Capsule 300 Mg PO BID 4 Days Reported Doxazosin Mesylate 1 Mg Tablet 1 Mg PO DAILY HOLD IF SBP IS LESS THEN 100 , HOLD IF DBP IS LESS THAN 50 Docusate Sodium 100 Mg Tablet 100 Mg PO DAILY Tramadol HCl 50 Mg Tablet 50 Mg PO DAILY Miralax (Polyethylene Glycol 3350) 17 Gram Powd.pack 17 Gm PO DAILY Delsym (Dextromethorphan Polistirex) 30 Mg/5 Ml Guera.er.12h 10 Ml PO Q12H PRN Glucagon Emergency Kit (Glucagon,Human Recombinant) 1 Mg Soln 1 Mg IJ UD PRN Sertraline HCl 150 Mg Capsule 150 Mg PO DAILY Insulin Aspart 100 Unit/Ml Vial Unit SQ BID WITH MEALS SLIDING SCALE: 60-180=0 UNITS 181-200=0 UNITS 201-250=3 UNITS 351-300=5 UNITS 301-350=7 UNITS 351-400=9 UNITS GREATER THEN 400 NOTIFY PCP Calcium 600 + Vit D3 400 Tab (Calcium Carbonate/Vitamin D3) 600 Mg Calcium-10 Mcg (400 Unit) Tablet 1 Each PO DAILY Zinc (Zinc Amino Acid Chelate) 50 Mg Tablet 50 Mg PO DAILY Fish Oil 1,000 mg Softgel ([place]-3/Dha/Epa/Fish Oil) 1,000 Mg (120 Mg-180 Mg) Capsule 1,000 Mg PO BID Hydralazine HCl 25 Mg Tablet 25 Mg PO TID HOLD IF SBP IS LESS THEN 100 , HOLD IF DBP IS LESS THAN 50 Amlodipine Besylate 5 Mg Tablet 5 Mg PO DAILY HOLD IF SBP IS LESS THEN 100 , HOLD IF DBP IS LESS THAN 50 Basaglar Kwikpen U-100 (Insulin Glargine,Hum.rec.anlog) 100 Unit/Ml (3 Ml) Insuln.pen 25 Unit SQ HS Vitamin D3 (Cholecalciferol (Vitamin D3)) 50 Mcg (2000 Unit) Capsule 50 Mcg PO DAILY Vitamin C (Ascorbic Acid) 500 Mg Capsule.er 500 Mg PO Q12H Ocuvite with Lutein Tablet (Vit A,C & E/Lutein/Minerals) 1 Each Tablet 1 Each PO BID Tylenol Extra Strength (Acetaminophen) 500 Mg Tablet 500 Mg PO BID PRN Olmesartan Medoxomil 20 Mg Tablet 20 Mg PO DAILY HOLD IF SBP IS LESS THEN 100 , HOLD IF DBP IS LESS THAN 50 Tylenol Arthritis (Acetaminophen) 650 Mg Tablet.er 650 Mg PO BID Levetiracetam 750 Mg Tablet 750 Mg PO BID Atorvastatin Calcium 40 Mg Tablet 40 Mg PO DAILY Pantoprazole Sodium 40 Mg Tablet. 40 Mg PO DAILY Aspirin EC (Aspirin) 81 Mg Tablet.dr 81 Mg PO DAILY Letrozole 2.5 Mg Tablet 2.5 Mg PO DAILY Iron (Ferrous Sulfate) 325 Mg (65 Mg Iron) Tablet 325 Mg PO 1200 Januvia (Sitagliptin Phosphate) 100 Mg Tablet 100 Mg PO DAILY Follow Up Appt.: one week with Dr. Odom Skilled NF Admit to: [facility] ([facility]) I certify that SNF services are required to be given on an inpatient basis because of the above named patient's need for correction care on a continuing basis for the conditions(s) for which he/she was receiving inpatient hospital services prior to his/her transfer to the SNF. [facility] Facility Order: Nursing Services, Icu Manager-Evaluate & Treat, Physical Therapy-Evaluate & Treat Oxygen Delivery Method: Nasal Cannula Oxygen Flow Rate L/min (Range): 2 Discharge Diet: Low Sodium Diet Resuscitation Status: Do Not Resuscitate David Lopez Aug 22, 2022 10:55 Discharge Physical Exam General: Alert, No Acute Distress HEENT: Atraumatic, Mucous Memb Moist/[place] Lungs: Clear to Auscultation, Normal Air Movement Heart: Regular Rate, No Murmurs Abdomen: Normal Bowel Sounds, Soft, No Tenderness Extremities: No Edema, No Tenderness/Swelling Neuro: Normal Speech, Normal Tone Psych/Mental Status: Mental Status NL, Mood NL DAVID LOPEZ MD Aug 22, 2022 11:01
--- NOTE | 2022-08-22 11:06 | Physical Therapy Daily Note ---
PT Daily Note-Current Subjective Patient agrees to therapy. Much more alert and able to participate with therapy. Pain Section J - Health Conditions 1. Rarely or not at all 2. Occasionally 3. Frequently 4. Almost constantly 8. Unable to answer Pain Effect on Sleep: 8 Pain Interference with Therapy: 8 Pain Interference w/Day-to-Day: 8 Mental Status Patient Orientation: Person Attachments: Oxygen, Castellanos Catheter Transfers SCALE: Activities may be completed with or without assistive devices. 5-Ucwilgtknr-geydljl completes the activity by him/herself with no assistance from a helper. 5-Set-up or Clean-up Assistance-helper sets up or cleans up; patient completes activity. [place] assists only prior to or following the activity. 4-Supervision or Touching Assistance-helper provides verbal cues and/or to uching/steadying and/or contact guard assistance as patient completes activity. Assistance may be provided throughout the activity or intermittently. 3-Partial/Moderate Assistance-helper does LESS THAN HALF the effort. [place] lifts, holds or supports trunk or limbs, but provides less than half the effort. 2-Substantial/Maximal Assistance-helper does MORE THAN HALF the effort. [place] lifts or holds trunk or limbs and provides more than half the effort. 0-Veylmlosl-gyrfoy does ALL the effort. Patient does none of the effort to complete the activity. Or, the assistance of 2 or more helpers is required for the patient to complete the activity. If activity was not attempted, code reason: 7-Patient Refused. 9-Not Applicable-not attempted and the patient did not perform the activity before the current illness, exacerbation or injury. 10-Not Attempted due to Environmental Limitations-(lack of equipment, weather restraints, etc.). 88-Not Attempted due to Medical Conditions or Safety Concerns. Sit to Lying (QC): 3 Lying to Sitting/Side of Bed(Q: 3 Sit to Stand (QC): 1 Weight Bearing Right Lower Extremity: Right Full Weight Bearing Left Lower Extremity: Left Full Weight Bearing Gait Training Distance: 4 side steps Gait Assistive Device: FWW max assist of 2 for patient to maintain stand with noted retrpulsive tendencies Assessment Patient tolerated increase in activity and on this date, reports she ambulates at care home. Per report, patient will return to [place] on this date. PT Fpc Goals Fpc Goals PT Colorer Hides And Skins Goals Time Frame: Sep 13, 2022 Roll Left & Right (QC): 3 Sit to Lying (QC): 3 Lying-Sitting on Side/Bed(QC): 3 Sit to Stand (QC): 2 Chair/Cka-mz-Uzdvr Xfer(QC): 2 PT Plan Treatment/Plan Treatment Plan: Continue Plan of Care Treatment Plan: Bed Mobility, Education, Functional Activity Odalys, Functional Strength, Group Therapy, Gait, Safety, Therapeutic Exercise, Transfers Treatment Duration: Sep 13, 2022 Frequency: 6 times per week Estimated Hrs Per Day: .25 hour per day Patient and/or Family Agrees t: Yes Time Time In: 944 Time Out: 1005 DATE: Aug 22, 2022 Total Billed Treatment Time: 21 Total Billed Treatment 1 visit FA 21 min PAUL REYES PT Aug 22, 2022 11:06
[2022-08-22 11:12] VITALS: BP 200/93
--- NOTE | 2022-08-22 11:22 | Occupational Ther Daily Note ---
OT Current Status-Daily Note Subjective Cognition improved, Patient reports some confusion w/ people wearing helmets, and playing games. [facility] her nurse was Chandan but he left. When asked 2 questions at once patient responds with "YES" but does not answer the question Mental Status/Objective Patient Orientation: Person, Place Attachments: Castellanos Catheter ADL-Treatment Shower cap and face/oral grooming provided w/ OT. Therapy Code Descriptions/Definitions Functional [place] Measure: 0=Not Assessed/NA 4=Minimal Assistance 1=Total Assistance 5=Supervision or Setup 2=Maximal Assistance 6=Modified [place] 3=Moderate Assistance 7=Complete IndependenceSCALE: Activities may be completed with or without assistive devices. 7-Xxxhknedkx-xcolbpm completes the activity by him/herself with no assistance from a helper. 5-Set-up or Clean-up Assistance-helper sets up or cleans up; patient completes activity. [place] assists only prior to or following the activity. 4-Supervision or Touching Assistance-helper provides verbal cues and/or touching/steadying and/or contact guard assistance as patient completes activity. Assistance may be provided throughout the activity or intermittently. 3-Partial/Moderate Assistance-helper does LESS THAN HALF the effort. [place] lift s, holds or supports trunk or limbs, but provides less than half the effort. 2-Substantial/Maximal Assistance-helper does MORE THAN HALF the effort. [place] lifts or holds trunk or limbs and provides more than half the effort. 2-[place]-dmlwuc does ALL the effort. Patient does none of the effort to complete the activity. Or, the assistance of 2 or more helpers is required for the patient to complete the activity. If activity was not attempted, code reason: 7-Patient Refused. 9-Not Applicable-not attempted and the patient did not perform the activity before the current illness, exacerbation or injury. 10-Not Attempted due to Environmental Limitations-(lack of equipment, weather restraints, etc.). 88-Not Attempted due to Medical Conditions or Safety Concerns. 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 2=Patient will verbalize/demonstrate understanding of assistive devices/m odifications for ADL. 3=Patient will improve strength/tolerance for activity to enable patient to perform ADL's. OT Education/Plan Discharge Recommendations Plan/Recommendations: Continue POC Treatment Plan/Plan of Care Patient would benefit from OT for education, treatment and training to promote independence in ADL's, mobility, safety and/or upper extremity function for ADL's. Plan of Care: ADL Retraining, Cognitive Retraining, Concurrent Therapy, Functional Mobility, Group Exercise/Act as Ind, UE Funct Exercise/Act Treatment Duration: Aug 24, 2022 Frequency: 3 times per week (3-5 times per week) Estimated Hrs Per Day: .25 hour per day Agreement: Yes Rehab Potential: Fair Time Start Time: 09:44 Stop Time: 10:06 DATE: Aug 22, 2022 Total Time Billed (hr/min): 23 Billed Treatment Time ADL 23 YOSELYN JONES OT Aug 22, 2022 11:22
[2022-08-23] MEDS ORDERED: ENOXAPARIN 40 MG/0.4 ML (LOVENOX) SYR SQ SCH (09:00)
== END 2022-08-22 14:30 | DRG 189 ==
LOC: EDUNIT# 07:23 → ER 07:25 → 4TH 11:01 → ICU 08-18 08:32 → 4TH 08-21 11:53
PROVIDERS: ADMIT Family Medicine; ATTEND Internal Medicine
PROC: 5A0935A Assistance with Respiratory Ventilation, Less than 24 Consecutive Hours, High Flow/Velocity Cannula (ICD-10-PCS; 2022-08-17)
PROC: 5A09457 Assistance with Respiratory Ventilation, 24-96 Consecutive Hours, Continuous Positive Airway Pressure (ICD-10-PCS; principal; 2022-08-18)
DX: J96.21 Acute and chronic respiratory failure with hypoxia (principal); A41.9 Sepsis, unspecified organism; R65.20 Severe sepsis without septic shock; J12.2 Parainfluenza virus pneumonia; J44.0 Chronic obstructive pulmonary disease with (acute) lower respiratory infection; J44.1 Chronic obstructive pulmonary disease with (acute) exacerbation; N17.9 Acute kidney failure, unspecified; G93.40 Encephalopathy, unspecified; E87.20 Acidosis, unspecified; J96.22 Acute and chronic respiratory failure with hypercapnia; J20.9 Acute bronchitis, unspecified; E11.65 Type 2 diabetes mellitus with hyperglycemia; Z79.4 Long term (current) use of insulin; Z79.84 Long term (current) use of oral hypoglycemic drugs; I12.9 Hypertensive chronic kidney disease with stage 1 through stage 4 chronic kidney disease, or unspecified chronic kidney disease; E11.22 Type 2 diabetes mellitus with diabetic chronic kidney disease; N18.9 Chronic kidney disease, unspecified; G40.909 Epilepsy, unspecified, not intractable, without status epilepticus; K21.9 Gastro-esophageal reflux disease without esophagitis; E78.00 Pure hypercholesterolemia, unspecified; F03.90 Unspecified dementia, unspecified severity, without behavioral disturbance, psychotic disturbance, mood disturbance, and anxiety; F43.21 Adjustment disorder with depressed mood; H54.7 Unspecified visual loss; D64.9 Anemia, unspecified; Z66 Do not resuscitate; Z20.822 Contact with and (suspected) exposure to COVID-19; Z85.3 Personal history of malignant neoplasm of breast; Z85.038 Personal history of other malignant neoplasm of large intestine; Z86.73 Personal history of transient ischemic attack (TIA), and cerebral infarction without residual deficits; Z79.82 Long term (current) use of aspirin; Z79.899 Other long term (current) drug therapy
CPT/HCPCS: 36415; 36600; 51702; 71045; 78580; 80048; 80053; 81000; 82607; 82728; 82746; 82805; 82947; 83540; 83550; 83605; 83735; 83880; 84100; 85025; 85027; 85610; 85730; 86141; 87040; 87081; 87088; 87632; 87636; 93970; 94640; 94660; 94760

== ENCOUNTER 2022-08-30 12:01 | Emergency (ER) | payer MEDICARE, BC ==
[~2022-08-30 12:01] MED LIST changes: +CALC-774 PO; +DEXT30SU5 PO; +DOCU100T2 PO; +GLUC1KIT IJ; +INSU100V42 SQ; +OMEG100032 PO; +POLY17PO6 PO; +SERT-414 PO; +SERT150C PO; +TRAM50TA3 PO; +ZINC50TA51 PO
--- NOTE | 2022-08-30 12:26 | ED General ---
General Chief Complaint: General Problems/Pain Stated Complaint: LOW HEMOGLOBIN Source of Information: Patient Exam Limitations: No Limitations History of Present Illness Date Seen by Provider: Aug 30, 2022 Time Seen by Provider: 12:22 Initial Comments Patient is a 82-year-old female who was brought to the ED by family from [facility] for potential low hemoglobin. Patient Was at a follow up visit with Dr. Hartley today. Received a call from Dr. Sandhu he PCP that her hemoglobin was 7.3 and was recommended to come to the ED. Patient was discharged from our facility 1 week ago for pneumonia. Currently on antibiotic and currently wearing 2 L of oxygen. She does report some weakness since the discharge however she feels like she is getting somewhat better. She does still have a cough but denies feeling short of breath, chest pain or abdominal pain. History of colon cancer. She had a EGD and colonoscopy performed by Dr. Hartley on Aug 06 2022 that noted polyps with polypectomy. Follow-up today with Dr. Hartley was regarding the results. She denies of any dark tarry stool. Denies any vomiting, fever, chills, body aches. Allergies and Home Medications Allergies Coded Allergies: No Known Drug Allergies (Unverified , 10/29/18) Patient Home Medication List Home Medication List Reviewed: Yes Acetaminophen (Tylenol Arthritis) 650 Mg Tablet.er, 650 MG PO BID, (Reported) Entered as Reported by: SIA GARCIA on 10/26/19 1547 Acetaminophen (Tylenol Extra Strength) 500 Mg Tablet, 500 MG PO BID PRN for PAIN-MILD (1-4), (Reported) Entered as Reported by: SIA GARCIA on 10/23/20 1120 Amlodipine Besylate (Amlodipine Besylate) 5 Mg Tablet, 5 MG PO DAILY, (Reported) Entered as Reported by: AMARIS JUNG on 07/30/22 1349 Ascorbic Acid (Vitamin C) 500 Mg Capsule.er, 500 MG PO Q12H, (Reported) Entered as Reported by: AMARIS JUNG on 07/30/22 1349 Aspirin (Aspirin EC) 81 Mg Tablet.dr, 81 MG PO DAILY, (Reported) Entered as Reported by: SIA GARCIA on 10/26/19 1546 Atorvastatin Calcium (Atorvastatin Calcium) 40 Mg Tablet, 40 MG PO DAILY, (Reported) Entered as Reported by: SIA GARCIA on 10/26/19 1546 Calcium Carbonate/Vitamin D3 (Calcium 600 + Vit D3 400 Tab) 600 Mg Calcium-10 Mcg (400 Unit) Tablet, 1 EACH PO DAILY, (Reported) Entered as Reported by: SIA GARCIA on 08/19/22 0948 Cefdinir (Cefdinir) 300 Mg Capsule, 300 MG PO BID Prescribed by: DAVID LOPEZ on 08/22/22 1054 Cholecalciferol (Vitamin D3) (Vitamin D3) 50 Mcg (2000 Unit) Capsule, 50 MCG PO DAILY, (Reported) Entered as Reported by: AMARIS JUNG on 07/30/22 1349 Dextromethorphan Polistirex (Delsym) 30 Mg/5 Ml Guera.er.12h, 10 ML PO Q12H PRN for COUGH, (Reported) Entered as Reported by: SIA GARCIA on 08/19/22 0948 Docusate Sodium (Docusate Sodium) 100 Mg Tablet, 100 MG PO DAILY, (Reported) Entered as Reported by: SIA GARCIA on 08/19/22 0948 Doxazosin Mesylate (Doxazosin Mesylate) 1 Mg Tablet, 1 MG PO DAILY, (Reported) Entered as Reported by: SIA GARCIA on 08/19/22 0948 Ferrous Sulfate (Iron) 325 Mg (65 Mg Iron) Tablet, 325 MG PO 1200, (Reported) Entered as Reported by: JUD DUOMNT on 10/29/18 0859 Ferrous Sulfate (Ferrous Sulfate) 325 Mg (65 Mg Iron) Tablet, 325 MG PO BID Prescribed by: RAFAL CANO on 08/30/22 1358 Glucagon,Human Recombinant (Glucagon Emergency Kit) 1 Mg Soln, 1 MG IJ UD PRN for HYPOGLYCEMIA, (Reported) Entered as Reported by: SIA GARCIA on 08/19/22 0948 Hydralazine HCl (Hydralazine HCl) 25 Mg Tablet, 25 MG PO TID, (Reported) Entered as Reported by: AMARIS JUNG on 07/30/22 1349 Insulin Aspart (Insulin Aspart) 100 Unit/Ml Vial, UNIT SQ BID WITH MEALS, (Reported) Entered as Reported by: SIA GARCIA on 08/19/22 0948 Insulin Glargine,Hum.rec.anlog (Basaglar Kwikpen U-100) 100 Unit/Ml (3 Ml) Insuln.pen, 25 UNIT SQ HS, (Reported) Entered as Reported by: AMARIS JUNG on 07/30/22 1349 Letrozole (Letrozole) 2.5 Mg Tablet, 2.5 MG PO DAILY, (Reported) Entered as Reported by: BENNIE ELLIOTT on 05/04/19 1544 Levetiracetam (Levetiracetam) 750 Mg Tablet, 750 MG PO BID, (Reported) Entered as Reported by: SIA GARCIA on 10/26/19 1546 Olmesartan Medoxomil (Olmesartan Medoxomil) 20 Mg Tablet, 20 MG PO DAILY, (Reported) Entered as Reported by: SIA GARCIA on 10/23/20 1120 [place]-3/Dha/Epa/Fish Oil (Fish Oil 1,000 mg Softgel) 1,000 Mg (120 Mg-180 Mg) Capsule, 1,000 MG PO BID, (Reported) Entered as Reported by: SIA GARCIA on 08/19/22 0948 Pantoprazole Sodium (Pantoprazole Sodium) 40 Mg Tablet.dr, 40 MG PO DAILY, (Reported) Entered as Reported by: SIA GARCIA on 10/26/19 1546 Polyethylene Glycol 3350 (Miralax) 17 Gram Powd.pack, 17 GM PO DAILY, (Reported) Entered as Reported by: SIA GARCIA on 08/19/22 0948 Sertraline HCl (Sertraline HCl) 150 Mg Capsule, 150 MG PO DAILY, (Reported) Entered as Reported by: SIA GARCIA on 08/19/22 0948 Sitagliptin Phosphate (Januvia) 100 Mg Tablet, 100 MG PO DAILY, (Reported) Entered as Reported by: JUD DUMONT on 01/05/16 1338 Tramadol HCl (Tramadol HCl) 50 Mg Tablet, 50 MG PO DAILY, (Reported) Entered as Reported by: SIA GARCIA on 08/19/22 0948 Vit A,C & E/Lutein/Minerals (Ocuvite with Lutein Tablet) 1 Each Tablet, 1 EACH PO BID, (Reported) Entered as Reported by: SIA GARCIA on 01/31/21 0835 Zinc Amino Acid Chelate (Zinc) 50 Mg Tablet, 50 MG PO DAILY, (Reported) Entered as Reported by: SIA GARCIA on 08/19/22 0948 Review of Systems Review of Systems Constitutional: No chills, No diaphoresis, No fever, No malaise, No weakness EENTM: No ear discharge, No hearing loss, No ear pain, No blurred vision Respiratory: No cough, No dyspnea on exertion Cardiovascular: No chest pain Gastrointestinal: No abdominal pain, No diarrhea, No nausea, No vomiting Genitourinary: No decreased output, No discharge Musculoskeletal: No back pain, No joint pain Skin: No change in color, No change in hair/nails All Other Systems Reviewed Negative Unless Noted: Yes Past Rbfqlpm-Vlpnsp-Ucadoh Hx Patient Social History Tobacco Use?: No Substance use?: No Alcohol Use?: No Immunizations Up To Date Tetanus Booster (TDap): Unknown PED Vaccines UTD: Yes First/Initial COVID19 Vaccinat: YES Second COVID19 Vaccination Darío: YES Third COVID19 Vaccination Date: YES Seasonal Allergies Seasonal Allergies: Yes (MILD) Past Medical History Surgery/Hospitalization HX: COLONOSCOPY JULY 2022 Surgeries: Yes (CATARACTS, GRAVEL REMOVED FROM KNEE, D&C, LIPOMA , R BREAST LUMP, COLECTOMY) Abdominal, Tonsillectomy, Tubal Ligation Respiratory: No Cardiac: Yes High Cholesterol, Hypertension Neurological: Yes (CVA- APRIL 2019) Dementia, Stroke Reproductive Disorders: No 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 Sexually Transmitted Disease: No HIV/AIDS: No Genitourinary: Yes Bladder Infection, Renal Failure Gastrointestinal: Yes (COLON CANCER) Musculoskeletal: Yes Degenerate Disk Disease, Arthritis, Chronic Back Pain Endocrine: Yes Diabetes, Non-Insulin dep HEENT: Yes (GLASSES, DENTURES) Loss of Vision: Denies Hearing Impairment: Denies Cancer: Yes Breast, Colon Did You Recieve Any Treatments: Yes What Type of Treatment Did You: Surgical Intervention Psychosocial: Yes (SITUATIONAL ) Depression Integumentary: No Blood Disorders: No Adverse Reaction/Blood Tranf: No (N/A) Family Medical History Alcoholism 19 FATHER Completed stroke 19 MOTHER Dementia 19 MOTHER Diabetes mellitus 19 MOTHER G8 BROTHER FH: breast cancer G8 SISTER FH: uterine cancer 19 MOTHER Hypertension G8 BROTHER Respiratory disorder 19 FATHER Physical Exam Vital Signs Vital Signs - First Documented 08/30/22 12:11 Temp 36.4 Pulse 48 Resp 20 B/P (MAP) 161/70 (100) Pulse Ox 98 Capillary Refill : Height, Weight, BMI Height: 5'3.00" Weight: 221lbs. 3.0oz. 100.586521yo; 39.11 BMI Method: General Appearance: No Apparent Distress, WD/WN Eyes: Bilateral Eye Normal Inspection, Bilateral Eye PERRL, Bilateral Eye EOMI HEENT: PERRL/EOMI, TMs Normal, Normal ENT Inspection, Pharynx Normal Neck: Full Range of Motion, Normal Inspection, Non Tender, Supple Respiratory: Chest Non Tender, Lungs Clear, Normal Breath Sounds, No Accessory Muscle Use, No Respiratory Distress Cardiovascular: Regular Rate, Rhythm, No Edema, No Gallop, No JVD Gastrointestinal: Normal Bowel Sounds, No Organomegaly Back: Normal Inspection, No CVA Tenderness Extremity: Normal Capillary Refill, Normal Inspection, Normal Range of Motion, Non Tender Neurologic/Psychiatric: Alert, Oriented x3, No Motor/Sensory Deficits, Normal 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, 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 Norm as Tested Progress/Results/Core Measures Suspected Sepsis SIRS Temperature: Pulse: Respiratory Rate: Laboratory Tests 08/30/22 12:36: White Blood Count 8.5 Blood Pressure / Mean: Laboratory Tests 08/30/22 12:36: Creatinine 1.40H, INR Comment 1.0, Platelet Count 310, Total Bilirubin 0.4 Results/Orders Lab Results Laboratory Tests Test 08/30/22 12:36 Range/Units White Blood Count 8.5 4.3-11.0 10^3/uL Red Blood Count 2.56 L 3.80-5.11 10^6/uL Hemoglobin 7.8 L 11.5-16.0 g/dL Hematocrit 26 L 35-52 % Mean Corpuscular Volume 101 H 80-99 fL Mean Corpuscular Hemoglobin 31 25-34 pg Mean Corpuscular Hemoglobin Concent 30 L 32-36 g/dL Red Cell Distribution Width 13.4 10.0-14.5 % Platelet Count 310 130-400 10^3/uL Mean Platelet Volume 10.0 9.0-12.2 fL Immature Granulocyte % (Auto) 1 % Neutrophils (%) (Auto) 77 H 42-75 % Lymphocytes (%) (Auto) 13 12-44 % Monocytes (%) (Auto) 7 0-12 % Eosinophils (%) (Auto) 2 0-10 % Basophils (%) (Auto) 0 0-10 % Neutrophils # (Auto) 6.5 1.8-7.8 10^3/uL Lymphocytes # (Auto) 1.1 1.0-4.0 10^3/uL Monocytes # (Auto) 0.6 0.0-1.0 10^3/uL Eosinophils # (Auto) 0.2 0.0-0.3 10^3/uL Basophils # (Auto) 0.0 0.0-0.1 10^3/uL Immature Granulocyte # (Auto) 0.1 0.0-0.1 10^3/uL Prothrombin Time 13.0 12.2-14.7 SEC INR Comment 1.0 0.8-1.4 Activated Partial Thromboplast Time 31 24-35 SEC Sodium Level 140 135-145 MMOL/L Potassium Level 4.7 3.6-5.0 MMOL/L Chloride Level 106 98-107 MMOL/L Carbon Dioxide Level 27 21-32 MMOL/L Anion Gap 7 5-14 MMOL/L Blood Urea Nitrogen 23 H 7-18 MG/DL Creatinine 1.40 H 0.60-1.30 MG/DL Estimat Glomerular Filtration Rate 38 BUN/Creatinine Ratio 16 Glucose Level 219 H 70-105 MG/DL Calcium Level 10.3 H 8.5-10.1 MG/DL Corrected Calcium 10.8 H 8.5-10.1 MG/DL Total Bilirubin 0.4 0.1-1.0 MG/DL Aspartate Amino Transf (AST/SGOT) 15 5-34 U/L Alanine Aminotransferase (ALT/SGPT) 19 0-55 U/L Alkaline Phosphatase 55 40-136 U/L Total Protein 6.2 L 6.4-8.2 GM/DL Albumin 3.4 3.2-4.5 GM/DL My Orders Orders - RHONDA NEWSOME Cbc With Automated Diff (08/30/22 12:20) Comprehensive Metabolic Panel (08/30/22 12:20) Partial Thromboplastin Time (08/30/22 12:20) Protime With Inr (08/30/22 12:20) Type And Screen (08/30/22 12:20) Iv/Invasive Line Insertion .IV INSERT (08/30/22 12:48) Chest 1 View, Ap/Pa Only (08/30/22 12:59) Vital Signs/I&O 08/30/22 08/30/22 12:11 14:20 Temp 36.4 Pulse 48 50 Resp 20 20 B/P (MAP) 161/70 (100) 122/47 Pulse Ox 98 98 Capillary Refill : Departure Communication (PCP) Reviewed previous ER visits, H&P, lab testing, studies. Patient had a colonoscopy August [address] Hartley. Had a follow-up visit today regarding her pathology report. Noted tubular adenoma, polyps. She was admitted and discharged last week secondary to pneumonia. Currently on antibiotic. She is a resident at [facility] since last . She does report a cough but states she is feeling much better and cough appears to be improving. Had lab work drawn few days ago and had a hemoglobin of 7.3 and sent to the ED for further evaluation. She has been doing physical therapy difficulty getting around secondary to the weakness from the pneumnoia. She believes it is secondary to recovering from pneumonia. She did have a slight downward trend of her hemoglobin from 9-7.3 during her stay here. CBC, coags, CBC was ordered. Hemoglobin of 7.8. Hematocrit 26. Creatinine 1.40 GFR 38 stable from previous lab work. Chronic hypercalcemia corrected calcium 10.8. Glucose 219. Chest x- ray did not note any acute abnormality. Patient's sounded slightly congested. Currently doing breathing treatments. She is currently on 2 L. Does not require increased oxygen. Oxygen 98%. Chronic bradycardia stable. Blood Pressure stable. Hemoccult was negative. Patient was discussed with Dr. Hartley general surgeon. Does not recommend any further evaluation at this time or intervention. Patient was discussed with Dr. Sandhu her primary care physician who recommend starting ferrous sulfate 325 mg twice daily. Will continue trending hemoglobin. If any worsening symptoms is strongly recommend return back to ED. Commend recheck of hemoglobin in the next 2 to 3 days. Impression Primary Impression: Anemia Disposition: 01 HOME, SELF-CARE Condition: Stable Departure-Patient Inst. Decision time for Depature: 13:57 Referrals: RAYO SANDHU DO (PCP/Family) Primary Care Physician Patient Instructions: Anemia, Possibly From Low Iron, Adult ED Scripts Ferrous Sulfate (Ferrous Sulfate) 325 Mg (65 Mg Iron) Tablet 325 MG PO BID, #30 TAB Prov: RHONDA NEWSOME 08/30/22 RHONDA NEWSOME Aug 30, 2022 12:26
[2022-08-30 12:43] LABS: BASOPHILS % (AUTO) 0 % (0-10); EOSINOPHILS # (AUTO) 0.2 10^3/uL (0.0-0.3); EOSINOPHILS % (AUTO) 2 % (0-10); HEMATOCRIT 26 % (35-52); HEMOGLOBIN 7.8 g/dL (11.5-16.0); LYMPHOCYTES # (AUTO) 1.1 10^3/uL (1.0-4.0); LYMPHOCYTES % (AUTO) 13 % (12-44); MEAN CORPUSCULAR HEMOGLOBIN 31 pg (25-34); MEAN CORPUSCULAR HGB CONC 30 g/dL (32-36); MEAN CORPUSCULAR VOLUME 101 fL (80-99); MONOCYTES # (AUTO) 0.6 10^3/uL (0.0-1.0); MONOCYTES % (AUTO) 7 % (0-12); NEUTROPHILS # (AUTO) 6.5 10^3/uL (1.8-7.8); NEUTROPHILS % (AUTO) 77 % (42-75); PLATELET COUNT 310 10^3/uL (130-400); WHITE BLOOD COUNT 8.5 10^3/uL (4.3-11.0)
[2022-08-30 12:54] LABS: ALBUMIN 3.4 GM/DL (3.2-4.5); POTASSIUM 4.7 MMOL/L (3.6-5.0)
[2022-08-30 12:55] LABS: CALCIUM 10.3 MG/DL (8.5-10.1)
[2022-08-30 12:56] LABS: TOTAL PROTEIN 6.2 GM/DL (6.4-8.2)
[2022-08-30 12:58] LABS: BILIRUBIN,TOTAL 0.4 MG/DL (0.1-1.0)
[2022-08-30 13:00] LABS: CREATININE SERUM 1.4 MG/DL (0.60-1.30)
--- NOTE | 2022-08-30 13:51 | Diagnostic Imaging Report ---
EXAM: CHEST 1 VIEW, AP/PA ONLY INDICATION: Cough. COMPARISON: 08/20/2022. FINDINGS: Normal heart size and central pulmonary vascularity. No focal pulmonary opacity. No pleural effusion or pneumothorax. No acute osseous findings. No significant change. IMPRESSION: No acute cardiopulmonary findings. Dictated by: Dictated on workstation # [id number]
[2022-08-30] MEDS ORDERED: FERR325T18 PO (13:58)
[2022-08-30 14:20] VITALS: BP 122/47
== END 2022-08-30 14:20 | disposition home or self-care (01) ==
LOC: EDUNIT# 12:01 → ER 12:02
DX: D64.9 Anemia, unspecified (principal); K63.5 Polyp of colon; Z87.01 Personal history of pneumonia (recurrent); Z99.81 Dependence on supplemental oxygen
CPT/HCPCS: 36415; 71045; 80053; 82274; 85025; 85610; 85730; 86850; 86900; 86901

== ENCOUNTER 2022-09-25 10:52 | Outpatient (RCR) | payer MEDICARE, BC ==
[2022-09-16] MEDS: IRON SUCROSE 200 MG/10 ML (VENOFER) VIAL IV SCH (11:02)
[2022-09-16 11:08] VITALS: BP 189/55
[2022-09-18] MEDS: IRON SUCROSE 200 MG/10 ML (VENOFER) VIAL IV SCH (11:00)
[2022-09-18 11:01] VITALS: BP 140/54
[2022-09-20 10:40] VITALS: BP 150/88
[2022-09-20] MEDS: IRON SUCROSE 200 MG/10 ML (VENOFER) VIAL IV SCH (10:45)
[2022-09-23] MEDS: IRON SUCROSE 200 MG/10 ML (VENOFER) VIAL IV SCH (11:47)
[2022-09-23 12:15] VITALS: BP 128/49
[~2022-09-25] VITALS: Ht 160 cm; Wt 101.3 kg
[~2022-09-25 10:52] MED LIST changes: +FERR325T18 PO
[2022-09-25 10:55] VITALS: BP 160/60
[2022-09-25] MEDS ORDERED: IRON SUCROSE 200 MG/10 ML (VENOFER) VIAL IV SCH (11:00)
== END 2022-09-25 11:44 | disposition home or self-care (01) ==
LOC: SDC 10:52
PROVIDERS: ATTEND Family Medicine
DX: D64.9 Anemia, unspecified (principal)
CPT/HCPCS: 96365

== ENCOUNTER 2022-11-30 15:28 | Emergency (ER) | payer MEDICARE, BC ==
[~2022-11-30] VITALS: Ht 160.6 cm; Wt 100.0 kg
--- NOTE | 2022-11-30 15:46 | ED Fall/Injury ---
General Chief Complaint: Trauma-Non Activation Stated Complaint: HEAD INJ Nursing Triage Note: PT WAS WALKING WITH WALKER, FELT LEGS GET WEAK AND FELL STRAIGHT BACKWARDS ONTO THE GROUND, HAS SWELLING TO THE BACK OF HER HEAD. Source: patient Exam Limitations: no limitations History of Present Illness Date Seen by Provider: Nov 30, 2022 Time Seen by Provider: 15:43 Initial Comments Patient is a 82-year-old female presents the ED for evaluation after a fall. Patient fell around 1 PM at [facility]. Patient was walking with her walker and states her legs gave out she fell backwards hitting the back part of her head on the concrete. This was witnessed. She denied loss of consciousness. According to daughter she does take a blood thinner. Currently resident at [facility]. She denies of any complaints such as head pain, dizziness, chest pain, shortness of breath, visual changes, unilateral muscle weakness. She states over the past 3 weeks she has had some weakness in her lower legs and currently in PT. According to family she is at her normal baseline. She denies of any chest pain, shortness of breath, abdominal pain, middle lower back pain or neck pain. Denies taking thing for pain. She does have a contusion to her occipital head Allergies and Home Medications Allergies Coded Allergies: No Known Drug Allergies (Unverified , 10/29/18) Patient Home Medication List Home Medication List Reviewed: Yes Acetaminophen (Tylenol Arthritis) 650 Mg Tablet.er, 650 MG PO BID, (Reported) Entered as Reported by: SIA GARCIA on 10/26/19 1547 Acetaminophen (Tylenol Extra Strength) 500 Mg Tablet, 500 MG PO BID PRN for PAIN-MILD (1-4), (Reported) Entered as Reported by: SIA GARCIA on 10/23/20 1120 Amlodipine Besylate (Amlodipine Besylate) 5 Mg Tablet, 5 MG PO DAILY, (Reported) Entered as Reported by: AMARIS JUNG on 07/30/22 1349 Ascorbic Acid (Vitamin C) 500 Mg Capsule.er, 500 MG PO Q12H, (Reported) Entered as Reported by: AMARIS JUNG on 07/30/22 1349 Aspirin (Aspirin EC) 81 Mg Tablet.dr, 81 MG PO DAILY, (Reported) Entered as Reported by: SIA GARCIA on 10/26/19 1546 Atorvastatin Calcium (Atorvastatin Calcium) 40 Mg Tablet, 40 MG PO DAILY, (Reported) Entered as Reported by: SIA GARCIA on 10/26/19 1546 Calcium Carbonate/Vitamin D3 (Calcium 600 + Vit D3 400 Tab) 600 Mg Calcium-10 Mcg (400 Unit) Tablet, 1 EACH PO DAILY, (Reported) Entered as Reported by: SIA GARCIA on 08/19/22 0948 Cefdinir (Cefdinir) 300 Mg Capsule, 300 MG PO BID Prescribed by: DAVID LOPEZ on 08/22/22 1054 Cholecalciferol (Vitamin D3) (Vitamin D3) 50 Mcg (2000 Unit) Capsule, 50 MCG PO DAILY, (Reported) Entered as Reported by: AMARIS JUNG on 07/30/22 1349 Dextromethorphan Polistirex (Delsym) 30 Mg/5 Ml Guera.er.12h, 10 ML PO Q12H PRN for COUGH, (Reported) Entered as Reported by: SIA GARCIA on 08/19/22947 Docusate Sodium (Docusate Sodium) 100 Mg Tablet, 100 MG PO DAILY, (Reported) Entered as Reported by: SIA GARCIA on 08/19/22 0948 Doxazosin Mesylate (Doxazosin Mesylate) 1 Mg Tablet, 1 MG PO DAILY, (Reported) Entered as Reported by: SIA GARCIA on 08/19/22 09 Ferrous Sulfate (Iron) 325 Mg (65 Mg Iron) Tablet, 325 MG PO 1200, (Reported) Entered as Reported by: JUD DUMONT on 10/29/18 0859 Ferrous Sulfate (Ferrous Sulfate) 325 Mg (65 Mg Iron) Tablet, 325 MG PO BID Prescribed by: RAFAL CANO on 08/30/22 1358 Glucagon,Human Recombinant (Glucagon Emergency Kit) 1 Mg Soln, 1 MG IJ UD PRN for HYPOGLYCEMIA, (Reported) Entered as Reported by: SIA GARCIA on 08/19/22 09 Hydralazine HCl (Hydralazine HCl) 25 Mg Tablet, 25 MG PO TID, (Reported) Entered as Reported by: AMARIS JUNG on 07/30/22 1349 Insulin Aspart (Insulin Aspart) 100 Unit/Ml Vial, UNIT SQ BID WITH MEALS, (Reported) Entered as Reported by: SIA GARCIA on 08/19/22 0948 Insulin Glargine,Hum.rec.anlog (Basaglar Kwikpen U-100) 100 Unit/Ml (3 Ml) Insuln.pen, 25 UNIT SQ HS, (Reported) Entered as Reported by: AMARIS JUNG on 07/30/22 1349 Letrozole (Letrozole) 2.5 Mg Tablet, 2.5 MG PO DAILY, (Reported) Entered as Reported by: BENNIE ELLIOTT on 05/04/19 1544 Levetiracetam (Levetiracetam) 750 Mg Tablet, 750 MG PO BID, (Reported) Entered as Reported by: SIA GARCIA on 10/26/19 1546 Olmesartan Medoxomil (Olmesartan Medoxomil) 20 Mg Tablet, 20 MG PO DAILY, (Reported) Entered as Reported by: SIA GARCIA on 10/23/20 1120 [place]-3/Dha/Epa/Fish Oil (Fish Oil 1,000 mg Softgel) 1,000 Mg (120 Mg-180 Mg) Capsule, 1,000 MG PO BID, (Reported) Entered as Reported by: SIA GARCIA on 08/19/22 0948 Pantoprazole Sodium (Pantoprazole Sodium) 40 Mg Tablet.dr, 40 MG PO DAILY, (Reported) Entered as Reported by: SIA GARCIA on 10/26/19 1546 Polyethylene Glycol 3350 (Miralax) 17 Gram Powd.pack, 17 GM PO DAILY, (Reported) Entered as Reported by: SIA GARCAI on 08/19/22 0948 Sertraline HCl (Sertraline HCl) 150 Mg Capsule, 150 MG PO DAILY, (Reported) Entered as Reported by: SIA GARCIA on 08/19/22 0948 Sitagliptin Phosphate (Januvia) 100 Mg Tablet, 100 MG PO DAILY, (Reported) Entered as Reported by: JUD DUMONT on 01/05/16 1338 Tramadol HCl (Tramadol HCl) 50 Mg Tablet, 50 MG PO DAILY, (Reported) Entered as Reported by: SIA GARCIA on 08/19/22 0948 Vit A,C & E/Lutein/Minerals (Ocuvite with Lutein Tablet) 1 Each Tablet, 1 EACH PO BID, (Reported) Entered as Reported by: SIA GARCIA on 01/31/21 0835 Zinc Amino Acid Chelate (Zinc) 50 Mg Tablet, 50 MG PO DAILY, (Reported) Entered as Reported by: SIA GARCIA on 08/19/22 0948 Review of Systems Review of Systems Constitutional: No chills, No diaphoresis Eyes: Denies Blurred Vision, Denies Drainage, Denies Decreased Acuity Ears, Nose, Mouth, Throat: denies ear pain, denies ear discharge Respiratory: No cough Cardiovascular: No no symptoms reported Gastrointestinal: No abdominal pain, No diarrhea, No nausea, No vomiting Genitourinary: No decreased output Musculoskeletal: No back pain, No joint pain Skin: change in color All Other Systems Reviewed Negative Unless Noted: Yes Past Zjwfxol-Cdculp-Lxbqio Hx Patient Social History Tobacco Use?: No Substance use?: No Alcohol Use?: No Immunizations Up To Date Tetanus Booster (TDap): Unknown PED Vaccines UTD: Yes First/Initial COVID19 Vaccinat: YES Second COVID19 Vaccination Darío: YES Third COVID19 Vaccination Date: YES Seasonal Allergies Seasonal Allergies: Yes (MILD) Past Medical History Surgery/Hospitalization HX: COLONOSCOPY JULY 2022, DM, HTN Surgeries: Yes (CATARACTS, GRAVEL REMOVED FROM KNEE, D&C, LIPOMA , R BREAST L UMP, COLECTOMY) Abdominal, Tonsillectomy, Tubal Ligation Respiratory: No Cardiac: Yes High Cholesterol, Hypertension Neurological: Yes (CVA- APRIL 2019) Dementia, Stroke Reproductive Disorders: No 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 Sexually Transmitted Disease: No HIV/AIDS: No Genitourinary: Yes Bladder Infection, Renal Failure Gastrointestinal: Yes (COLON CANCER) Musculoskeletal: Yes Degenerate Disk Disease, Arthritis, Chronic Back Pain Endocrine: Yes Diabetes, Non-Insulin dep HEENT: Yes (GLASSES, DENTURES) Loss of Vision: Denies Hearing Impairment: Denies Cancer: Yes Breast, Colon Did You Recieve Any Treatments: Yes What Type of Treatment Did You: Surgical Intervention Psychosocial: Yes (SITUATIONAL ) Depression Integumentary: No Blood Disorders: No Adverse Reaction/Blood Tranf: No (N/A) Family Medical History Alcoholism 19 FATHER Completed stroke 19 MOTHER Dementia 19 MOTHER Diabetes mellitus 19 MOTHER G8 BROTHER FH: breast cancer G8 SISTER FH: uterine cancer 19 MOTHER Hypertension G8 BROTHER Respiratory disorder 19 FATHER Physical Exam Vital Signs Vital Signs - First Documented 11/30/22 15:34 Pulse 56 Resp 18 B/P (MAP) 161/51 (87) Pulse Ox 97 Capillary Refill : Height, Weight, BMI Height: 5'3.00" Weight: 221lbs. 3.0oz. 100.694926bs; 38.00 BMI Method: General Appearance: WD/WN, no apparent distress HEENT: PERRL/EOMI, normal ENT inspection, TMs normal, pharynx normal Neck: non-tender, full range of motion, supple, other (No cervical midline t enderness. 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 Differential diagnosis, occipital head contusion, occipital fracture, concussion. patient presents to ED after a mechanical fall. She states she was walking into a door she her legs gave out and fell backwards hitting the occipital region of her head. She denies loss of consciousness. She denied having any chest pain or feeling short of breath before the fall. She states this morning she felt fine. She is currently in PT for her leg weakness which is not new. She denies of any current complaints. She denies hitting her back, hip. She had no thoracic or lumbar midline tenderness. No hip tenderness. No shortening of the lower extremities. She is neurovascular intact. No headache, dizziness, chest pain or shortness of breath. Obtained a CT scan of the head and cervical neck. CT scan of the head and cervical spine was negative for acute fracture. Occipital hematoma noted. No obvious bruising or swelling elsewhere. Discussed these results with patient. Family at bedside. At this time recommend continue observing. Recommend using walker with stability. If any worsening symptoms such as difficulty breathing, change in mental status, excessive vomiting to return back to ED. Patient has no concussive like symptoms at this time. Continue with your PT. Impression Primary Impression: Hematoma of occipital region of scalp Disposition: HOME, SELF-CARE Condition: Stable Departure-Patient Inst. Decision time for Depature: 16:15 Referrals: RAYO SANDHU DO (PCP/Family) Primary Care Physician Patient Instructions: Contusion (DC) Add. Discharge Instructions: Recommend ice to help with the contusion. Continue using walker. If any change in symptoms such as severe head pain vomiting change in mental status return back to ED. All discharge instructions reviewed with patient and/or family. Voiced understanding. RHONDA NEWSOME Nov 30, 2022 15:46
--- NOTE | 2022-11-30 16:13 | Diagnostic Imaging Report ---
PROCEDURE: CT head and CT cervical spine without contrast. TECHNIQUE: Multiple contiguous axial images were obtained through the brain and cervical spine without the use of intravenous contrast. Sagittal and coronal reformations through the cervical spine were then performed. Auto Exposure Controls were utilized during the CT exam to meet ALARA standards for radiation dose reduction. INDICATION: Head and neck trauma COMPARISON: 01/30/2021 FINDINGS: Head: No intracranial hyperdense hemorrhage or space-occupying mass. No hydrocephalus or midline shift. No evidence of acute territorial infarct. Moderate-sized region of encephalomalacia in the inferior left frontal lobe is unchanged. Basilar cisterns are patent. Left posterior occipital subcutaneous contusion. No skull fracture. The paranasal sinuses and mastoid air cells are clear. Cervical spine: No acute fracture or traumatic malalignment. Calcification of ligamentum flavum at C4-C5 causes moderate spinal canal stenosis. Airway is patent. No cervical lymphadenopathy. No suspicious thyroid nodule. IMPRESSION: 1. No acute intracranial process or skull fracture. Left occipital scalp hematoma. 2. No acute fracture or traumatic malalignment of the cervical spine. Dictated by: Dictated on workstation # [id number]
[2022-11-30 16:32] VITALS: BP 161/51
== END 2022-11-30 16:34 | disposition home or self-care (01) ==
LOC: EDUNIT# 15:28 → ER 15:30
DX: S00.03XA Contusion of scalp, initial encounter (principal); W18.30XA Fall on same level, unspecified, initial encounter; W22.8XXA Striking against or struck by other objects, initial encounter
CPT/HCPCS: 70450; 72125

== ENCOUNTER 2022-12-25 16:39 | Emergency (ER) | payer MEDICARE, BC ==
[~2022-12-25] VITALS: Ht 160 cm; Wt 90.7 kg
--- NOTE | 2022-12-25 17:23 | Diagnostic Imaging Report ---
EXAMINATION: Chest 1 view HISTORY: Cough COMPARISON: 08/30/2022 FINDINGS: The lungs are clear without edema or pneumonia. No pleural effusion or pneumothorax. Heart size is normal. IMPRESSION: 1. Clear lungs. Dictated by: Dictated on workstation # [id number]
[2022-12-25 17:27] LABS: BASOPHILS % (AUTO) 1 % (0-10); EOSINOPHILS # (AUTO) 0.3 10^3/uL (0.0-0.3); EOSINOPHILS % (AUTO) 4 % (0-10); HEMATOCRIT 32 % (35-52); LYMPHOCYTES # (AUTO) 1.3 10^3/uL (1.0-4.0); LYMPHOCYTES % (AUTO) 18 % (12-44); MEAN CORPUSCULAR HEMOGLOBIN 31 pg (25-34); MEAN CORPUSCULAR HGB CONC 32 g/dL (32-36); MEAN CORPUSCULAR VOLUME 98 fL (80-99); MEAN PLATELET VOLUME 9.9 fL (9.0-12.2); MONOCYTES # (AUTO) 0.6 10^3/uL (0.0-1.0); MONOCYTES % (AUTO) 9 % (0-12); NEUTROPHILS # (AUTO) 4.7 10^3/uL (1.8-7.8); NEUTROPHILS % (AUTO) 68 % (42-75); PLATELET COUNT 255 10^3/uL (130-400); WHITE BLOOD COUNT 6.9 10^3/uL (4.3-11.0)
[2022-12-25 17:31] LABS: ALBUMIN 3.5 GM/DL (3.2-4.5); POTASSIUM 4.4 MMOL/L (3.6-5.0)
[2022-12-25 17:33] LABS: CALCIUM 10.6 MG/DL (8.5-10.1)
[2022-12-25 17:34] LABS: TOTAL PROTEIN 6.6 GM/DL (6.4-8.2)
[2022-12-25 17:36] LABS: BILIRUBIN,TOTAL 0.2 MG/DL (0.1-1.0)
[2022-12-25 17:38] LABS: CREATININE SERUM 0.99 MG/DL (0.60-1.30)
[2022-12-25 17:40] LABS: MAGNESIUM 1.5 MG/DL (1.6-2.4)
[2022-12-25 18:28] LABS: BILIRUBIN,URINE NEGATIVE (NEGATIVE); CLARITY,URINE CLEAR; COLOR,URINE YELLOW; GLUCOSE, URINE (UA) NEGATIVE (NEGATIVE); KETONES,URINE NEGATIVE (NEGATIVE); LEUKOCYTE ESTERASE ,URINE TRACE (NEGATIVE); NITRITE,URINE NEGATIVE (NEGATIVE); PROTEIN,URINE 2+ (NEGATIVE)
[2022-12-25 18:29] LABS: AMORPHOUS SEDIMENT,UR RARE AMOR URATES /LPF; BACTERIA,URINE FEW /HPF; RBC,URINE 0-2 /HPF; SQUAMOUS EPITHELIAL CELL,UR >50 /HPF
--- NOTE | 2022-12-25 18:41 | ED General ---
General Chief Complaint: General Problems/Pain Stated Complaint: BLOODWORK Nursing Triage Note: PT ARRIVED POV FROM [facility] WITH CC OF WEAKNESS, CONFUSION, AND DIFFICULTY WALKING. PT STATES THAT SYMPTOMS STARTED A COUPLE DAYS AGO. PT REPORTS THAT SHE FELL 2 WEEKS AGO AT [facility]. Source of Information: Patient, Skilled Nursing Records, Old Records Exam Limitations: No Limitations History of Present Illness Date Seen by Provider: Dec 25, 2022 Time Seen by Provider: 16:51 Initial Comments This 82-year-old woman presents to the emergency room by means of the fpc transporter. Patient reportedly has altered mental status, decreased functional capacity, loss of ability to walk, and recent cough. Patient is alert and conversational. She is oriented and rather articulate in her conversation, joking with staff and asking good questions. She denies any major symptoms at this time. When asked about her confusion, she remarks "Have you ever lived in a [facility]? Well, you would be confused there too." She appears to have no focal deficits. Vital signs have been reviewed and are notable only for hypertension. Patient had a fall November 30 in which she struck her head. She was evaluated with CT imaging in the ER and no serious injuries were identified. Dr. Sandhu is her primary care provider and reportedly requested that she come to the emergency room for further evaluation. Patient denies the cough that was reported by staff. Allergies and Home Medications Allergies Coded Allergies: No Known Drug Allergies (Unverified , 10/29/18) Patient Home Medication List Home Medication List Reviewed: Yes Acetaminophen (Tylenol Arthritis) 650 Mg Tablet.er, 650 MG PO BID, (Reported) Entered as Reported by: SIA GARCIA on 10/26/19 1547 Acetaminophen (Tylenol Extra Strength) 500 Mg Tablet, 500 MG PO BID PRN for PAIN-MILD (1-4), (Reported) Entered as Reported by: SIA GARCIA on 10/23/20 1120 Amlodipine Besylate (Amlodipine Besylate) 5 Mg Tablet, 5 MG PO DAILY, (Reported) Entered as Reported by: AMARIS JUNG on 07/30/22 1349 Ascorbic Acid (Vitamin C) 500 Mg Capsule.er, 500 MG PO Q12H, (Reported) Entered as Reported by: AMARIS JUNG on 07/30/22 1349 Aspirin (Aspirin EC) 81 Mg Tablet.dr, 81 MG PO DAILY, (Reported) Entered as Reported by: SIA GARCIA on 10/26/19 1546 Atorvastatin Calcium (Atorvastatin Calcium) 40 Mg Tablet, 40 MG PO DAILY, (Reported) Entered as Reported by: SIA GARCIA on 10/26/19 1546 Calcium Carbonate/Vitamin D3 (Calcium 600 + Vit D3 400 Tab) 600 Mg Calcium-10 Mcg (400 Unit) Tablet, 1 EACH PO DAILY, (Reported) Entered as Reported by: SIA GARCIA on 08/19/22 0948 Cefdinir (Cefdinir) 300 Mg Capsule, 300 MG PO BID Prescribed by: DAVID LOPEZ on 08/22/22 1054 Cholecalciferol (Vitamin D3) (Vitamin D3) 50 Mcg (2000 Unit) Capsule, 50 MCG PO DAILY, (Reported) Entered as Reported by: AMARIS JUNG on 07/30/22 1349 Dextromethorphan Polistirex (Delsym) 30 Mg/5 Ml Guera.er.12h, 10 ML PO Q12H PRN for COUGH, (Reported) Entered as Reported by: SIA GARCIA on 08/19/22 0948 Docusate Sodium (Docusate Sodium) 100 Mg Tablet, 100 MG PO DAILY, (Reported) Entered as Reported by: SIA GARCIA on 08/19/22 0948 Doxazosin Mesylate (Doxazosin Mesylate) 1 Mg Tablet, 1 MG PO DAILY, (Reported) Entered as Reported by: SIA GARCIA on 08/19/22 0948 Ferrous Sulfate (Iron) 325 Mg (65 Mg Iron) Tablet, 325 MG PO 1200, (Reported) Entered as Reported by: JUD DUMONT on 10/29/18 0859 Ferrous Sulfate (Ferrous Sulfate) 325 Mg (65 Mg Iron) Tablet, 325 MG PO BID Prescribed by: RAFAL CANO on 08/30/22 1358 Glucagon,Human Recombinant (Glucagon Emergency Kit) 1 Mg Soln, 1 MG IJ UD PRN for HYPOGLYCEMIA, (Reported) Entered as Reported by: SIA GARCIA on 08/19/22 0948 Hydralazine HCl (Hydralazine HCl) 25 Mg Tablet, 25 MG PO TID, (Reported) Entered as Reported by: AMARIS JUNG on 07/30/22 1349 Insulin Aspart (Insulin Aspart) 100 Unit/Ml Vial, UNIT SQ BID WITH MEALS, (Reported) Entered as Reported by: SIA GARCIA on 08/19/22 0948 Insulin Glargine,Hum.rec.anlog (Basaglar Kwikpen U-100) 100 Unit/Ml (3 Ml) Insuln.pen, 25 UNIT SQ HS, (Reported) Entered as Reported by: AMARIS JUNG on 07/30/22 1349 Letrozole (Letrozole) 2.5 Mg Tablet, 2.5 MG PO DAILY, (Reported) Entered as Reported by: BENNIE ELLIOTT on 05/04/19 1544 Levetiracetam (Levetiracetam) 750 Mg Tablet, 750 MG PO BID, (Reported) Entered as Reported by: SIA GARCIA on 10/26/19 1546 Magnesium Oxide (Magnesium Oxide) 400 Mg Tablet, 400 MG PO BID Prescribed by: NADIR LUNDBERG on 12/25/22 1843 Olmesartan Medoxomil (Olmesartan Medoxomil) 20 Mg Tablet, 20 MG PO DAILY, (Reported) Entered as Reported by: SIA GARCIA on 10/23/20 1120 [place]-3/Dha/Epa/Fish Oil (Fish Oil 1,000 mg Softgel) 1,000 Mg (120 Mg-180 Mg) Capsule, 1,000 MG PO BID, (Reported) Entered as Reported by: SIA GARCIA on 08/19/22 0948 Pantoprazole Sodium (Pantoprazole Sodium) 40 Mg Tablet.dr, 40 MG PO DAILY, (Reported) Entered as Reported by: SIA GARCIA on 10/26/19 1546 Polyethylene Glycol 3350 (Miralax) 17 Gram Powd.pack, 17 GM PO DAILY, (Reported) Entered as Reported by: SIA GARCIA on 08/19/22 0948 Sertraline HCl (Sertraline HCl) 150 Mg Capsule, 150 MG PO DAILY, (Reported) Entered as Reported by: SIA GARCIA on 08/19/22 0948 Sitagliptin Phosphate (Januvia) 100 Mg Tablet, 100 MG PO DAILY, (Reported) Entered as Reported by: JUD DUMONT on 01/05/16 1338 Tramadol HCl (Tramadol HCl) 50 Mg Tablet, 50 MG PO DAILY, (Reported) Entered as Reported by: SIA GARCIA on 08/19/22 0948 Vit A,C & E/Lutein/Minerals (Ocuvite with Lutein Tablet) 1 Each Tablet, 1 EACH PO BID, (Reported) Entered as Reported by: SIA GARCIA on 01/31/21 0835 Zinc Amino Acid Chelate (Zinc) 50 Mg Tablet, 50 MG PO DAILY, (Reported) Entered as Reported by: SAI GARCIA on 08/19/22 0948 Review of Systems Review of Systems Constitutional: see HPI, weakness EENTM: no symptoms reported Respiratory: see HPI Cardiovascular: no symptoms reported Gastrointestinal: no symptoms reported Genitourinary: no symptoms reported Musculoskeletal: no symptoms reported Skin: no symptoms reported Psychiatric/Neurological: See HPI Hematologic/Lymphatic: No Symptoms Reported Past [id number] Hx Patient Social History Tobacco Use?: No Substance use?: No Alcohol Use?: No Immunizations Up To Date Tetanus Booster (TDap): Unknown PED Vaccines UTD: Yes First/Initial COVID19 Vaccinat: YES Second COVID19 Vaccination Darío: YES Third COVID19 Vaccination Date: YES Seasonal Allergies Seasonal Allergies: Yes (MILD) Past Medical History Surgery/Hospitalization HX: COLONOSCOPY JULY 2022, DM, HTN, BREAST AND COLON CANCER Surgeries: Yes (CATARACTS, GRAVEL REMOVED FROM KNEE, D&C, LIPOMA , R BREAST LUMP, COLECTOMY) Abdominal, Tonsillectomy, Tubal Ligation Respiratory: No Cardiac: Yes High Cholesterol, Hypertension Neurological: Yes (CVA- APRIL 2019) Dementia, Stroke Reproductive Disorders: No 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 Sexually Transmitted Disease: No HIV/AIDS: No Genitourinary: Yes Bladder Infection, Renal Failure Gastrointestinal: Yes (COLON CANCER) Musculoskeletal: Yes Degenerate Disk Disease, Arthritis, Chronic Back Pain Endocrine: Yes Diabetes, Non-Insulin dep HEENT: Yes (GLASSES, DENTURES) Loss of Vision: Denies Hearing Impairment: Denies Cancer: Yes Breast, Colon Did You Recieve Any Treatments: Yes What Type of Treatment Did You: Surgical Intervention Psychosocial: Yes (SITUATIONAL ) Depression Integumentary: No Blood Disorders: No Adverse Reaction/Blood Tranf: No (N/A) Family Medical History Alcoholism 19 FATHER Completed stroke 19 MOTHER Dementia 19 MOTHER Diabetes mellitus 19 MOTHER G8 BROTHER FH: breast cancer G8 SISTER FH: uterine cancer 19 MOTHER Hypertension G8 BROTHER Respiratory disorder 19 FATHER Physical Exam Vital Signs Vital Signs - First Documented 12/25/22 16:57 Temp 36.4 Pulse 54 B/P (MAP) 171/63 (99) Pulse Ox 96 O2 Delivery Room Air Capillary Refill : Height, Weight, BMI Height: 5'3.00" Weight: 221lbs. 3.0oz. 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 Norm as Tested Skin: Normal Color, Warm/Dry Progress/Results/Core Measures Suspected Sepsis SIRS Temperature: Pulse: 54 Respiratory Rate: Laboratory Tests 12/25/22 17:15: White Blood Count 6.9 Blood Pressure 171 /63 Mean: 99 Laboratory Tests 12/25/22 17:15: Creatinine 0.99, Platelet Count 255, Total Bilirubin 0.2 Results/Orders Lab Results Laboratory Tests Test 12/25/22 17:15 12/25/22 17:23 12/25/22 18:00 Range/Units White Blood Count 6.9 4.3-11.0 10^3/uL Red Blood Count 3.22 L 3.80-5.11 10^6/uL Hemoglobin 10.0 L 11.5-16.0 g/dL Hematocrit 32 L 35-52 % Mean Corpuscular Volume 98 80-99 fL Mean Corpuscular Hemoglobin 31 25-34 pg Mean Corpuscular Hemoglobin Concent 32 32-36 g/dL Red Cell Distribution Width 12.7 10.0-14.5 % Platelet Count 255 130-400 10^3/uL Mean Platelet Volume 9.9 9.0-12.2 fL Immature Granulocyte % (Auto) 1 % Neutrophils (%) (Auto) 68 42-75 % Lymphocytes (%) (Auto) 18 12-44 % Monocytes (%) (Auto) 9 0-12 % Eosinophils (%) (Auto) 4 0-10 % Basophils (%) (Auto) 1 0-10 % Neutrophils # (Auto) 4.7 1.8-7.8 10^3/uL Lymphocytes # (Auto) 1.3 1.0-4.0 10^3/uL Monocytes # (Auto) 0.6 0.0-1.0 10^3/uL Eosinophils # (Auto) 0.3 0.0-0.3 10^3/uL Basophils # (Auto) 0.0 0.0-0.1 10^3/uL Immature Granulocyte # (Auto) 0.0 0.0-0.1 10^3/uL Sodium Level 142 135-145 MMOL/L Potassium Level 4.4 3.6-5.0 MMOL/L Chloride Level 108 H 98-107 MMOL/L Carbon Dioxide Level 23 21-32 MMOL/L Anion Gap 11 5-14 MMOL/L Blood Urea Nitrogen 20 H 7-18 MG/DL Creatinine 0.99 0.60-1.30 MG/DL Estimat Glomerular Filtration Rate 58 BUN/Creatinine Ratio 20 Glucose Level 183 H 70-105 MG/DL Calcium Level 10.6 H 8.5-10.1 MG/DL Corrected Calcium 11.0 H 8.5-10.1 MG/DL Magnesium Level 1.5 L 1.6-2.4 MG/DL Total Bilirubin 0.2 0.1-1.0 MG/DL Aspartate Amino Transf (AST/SGOT) 14 5-34 U/L Alanine Aminotransferase (ALT/SGPT) 11 0-55 U/L Alkaline Phosphatase 65 40-136 U/L Total Protein 6.6 6.4-8.2 GM/DL Albumin 3.5 3.2-4.5 GM/DL Influenza Type A (RT-PCR) Not Detected Not Detecte Influenza Type B (RT-PCR) Not Detected Not Detecte SARS-CoV-2 RNA (RT-PCR) Not Detected Not Detecte Urine Color YELLOW Urine Clarity CLEAR Urine pH 6.0 5-9 Urine Specific [place] 1.020 1.016-1.022 Urine Protein 2+ H NEGATIVE Urine Glucose (UA) NEGATIVE NEGATIVE Urine Ketones NEGATIVE NEGATIVE Urine Nitrite NEGATIVE NEGATIVE Urine Bilirubin NEGATIVE NEGATIVE Urine Urobilinogen 0.2 < = 1.0 MG/DL Urine Leukocyte Esterase TRACE H NEGATIVE Urine RBC (Auto) NEGATIVE NEGATIVE Urine RBC 0-2 /HPF Urine WBC 2-5 /HPF Urine Squamous Epithelial Cells >50 H /HPF Urine Crystals PRESENT H /LPF Urine Amorphous Sediment RARE AISHA URATES H /LPF Urine Bacteria FEW H /HPF Urine Casts PRESENT /LPF Urine Hyaline Casts 2-5 H /LPF Urine Mucus SMALL H /LPF Urine Culture Indicated NO My Orders Orders - NADIR LIM MD Cbc And Automated Diff (12/25/22 17:06) Comprehensive Metabolic Panel (12/25/22 17:06) Magnesium (12/25/22 17:06) Ua Culture If Indicated (12/25/22 17:06) Ed Iv/Invasive Line Start (12/25/22 17:06) Covid 19 Inhouse Test (12/25/22 17:06) Influenza A And B By Pcr (12/25/22 17:06) Chest 1 View, Ap/Pa Only (12/25/22 17:07) Magnesium Oxide Tablet (Magnesium Oxide (12/25/22 18:45) Vital Signs/I&O 12/25/22 16:57 Temp 36.4 Pulse 54 B/P (MAP) 171/63 (99) Pulse Ox 96 O2 Delivery Room Air Capillary Refill : Blood Pressure Mean: 99 Progress Note : Progress Note The complaints of cough and confusion reported by fpc staff were not appreciated during this visit. Weakness seems to be generalized and is not well appreciated on her exam in the hospital bed. She moves all 4 extremities equally and without any difficulty. Labs were reviewed and interpreted by me. CBC was notable for mild anemia with hemoglobin of 10.0. Glucose was 183. Calcium was mildly elevated at 11.0. Magnesium was mildly low at 1.5. Chemistry was otherwise unremarkable. Chest x-ray revealed no acute abnormalities per radiologist's report below. Urinalysis seemed contaminated with greater than 50 squamous cells noted. There was trace leukocyte esterase, few bacteria, and few casts and crystals. Patient was given oral magnesium replacement along with a prescription. She is being discharged back to the [facility] in stable condition. Diagnostic Imaging Diagonstic Imaging: Xray Plain Films/CT/US/NM/MRI: chest Comments NAME: [facility]EDI [facility] REC#: [id number] PT STATUS: REG ER : 1940 PHYSICIAN: NADIR LIM MD ADMIT DATE: 12/25/22/ER Draft Date of Exam:12/25/22 CHEST 1 VIEW, AP/PA ONLY EXAMINATION: Chest 1 view HISTORY: Cough COMPARISON: 08/30/2022 FINDINGS: The lungs are clear without edema or pneumonia. No pleural effusion or pneumothorax. Heart size is normal. IMPRESSION: 1. Clear lungs. Dictated on workstation # [id number] Dict: 12/25/22 172 Trans: 12/25/221721 CVB [id number] Interpreted by: ALYSSIA HERNANDEZ MD Departure Impression Primary Impression: Generalized weakness Additional Impression: Hypomagnesemia Disposition: 01 HOME, SELF-CARE Condition: Stable Departure-Patient Inst. Decision time for Depature: 18:39 Referrals: RAYO SANDHU DO (PCP/Family) Primary Care Physician Patient Instructions: Low Magnesium Level (DC) Add. Discharge Instructions: Your magnesium level was slightly low in the emergency room. Take magnesium supplement as prescribed. Otherwise continue your medications as previously prescribed, and follow-up with your primary care provider soon as possible for medication review and repeat examination. Observe blood sugars closely as low blood sugar may be a cause of some of your symptoms. Preferably, check blood sugars fasting in the morning and 2 hours after each meal. Review these blood sugars with the primary care provider and follow-up. Return to care if you have worsening symptoms. All discharge instructions reviewed with patient and/or family. Voiced understanding. Scripts Magnesium Oxide (Magnesium Oxide) 400 Mg Tablet 400 MG PO BID, #10 TAB Prov: NADIR LIM MD 12/25/22 Copy Copies To 1: RAYO SANDHU JOSHUA T MD Dec 25, 2022 18:41
[2022-12-25] MEDS ORDERED: MAGN400T7 PO (18:43)
[2022-12-25] MEDS ORDERED: MAGNESIUM OXIDE 400 MG TABLET PO ONE (18:45)
[2022-12-25 19:11] VITALS: BP 191/75
== END 2022-12-25 19:09 | disposition home or self-care (01) ==
LOC: EDUNIT# 16:39 → ER 16:42
DX: E83.42 Hypomagnesemia (principal); D64.9 Anemia, unspecified; E83.52 Hypercalcemia; Z20.822 Contact with and (suspected) exposure to COVID-19
CPT/HCPCS: 36415; 51701; 71045; 80053; 81000; 83735; 85025; 87636